=== PATIENT | female | born 1960 | race Caucasian/White ===

== ENCOUNTER 2024-01-06 13:12 | Outpatient (OUT) | payer MEDICARE, SELFPAY ==
[2024-01-06 14:18] LABS: Basophils Absolute Auto 0.1 10^3/uL (0.0-0.1); Eosinophils Absolute Auto 0.1 10^3/uL (0.0-0.7); Eosinophils Percent Auto 0.9 % (0.9-7.0); Hematocrit 42.3 % (36.0-48.0); Hemoglobin 13.8 g/dL (12.0-16.0); Immature Granulocytes Abs Auto 0.02 10^3/uL (0.00-0.03); Immature Granulocytes Pct Auto 0.3 % (0.0-0.5); Lymphocytes Absolute Auto 2.3 10^3/uL (1.2-3.8); Mean Corpuscular HGB Conc 32.6 g/dL (29.9-35.2); Mean Corpuscular Hemoglobin 30.7 pg (26.7-34.0); Mean Corpuscular Volume 94.2 fL (81.0-99.0); Mean Platelet Volume 10.4 fL (9.5-13.5); Monocytes Absolute Auto 0.6 10^3/uL (0.3-0.8); Monocytes Percent Auto 7.6 % (1.7-12.0); Neutrophils Absolute Auto 4.9 10^3/uL (1.4-6.5); Neutrophils Percent Auto 61.2 % (43.0-75.0); Platelet Count 235 10^3/uL (150-450); Red Blood Count 4.49 10^6/uL (4.20-5.40); Red Cell Distribution Width 14.4 % (11.0-15.0)
[2024-01-06 14:45] LABS: Estimated Average Glucose 131 mg/dL; Glycohemoglobin A1C 6.2 % (4.5-6.2)
[2024-01-06 14:51] LABS: Alanine Aminotransferase 41 U/L (14-59); Albumin Globulin Ratio 1.1; Albumin Level 3.8 g/dL (3.4-5.0); Alkaline Phosphatase 124 U/L (46-116); Anion Gap 14.1; Aspartate Amino Transferase 17 U/L (15-37); BUN Creatinine Ratio 13.1; Bilirubin Total 0.4 mg/dL (0.2-1.0); Calcium 9.4 mg/dL (8.5-10.1); Carbon Dioxide 26.7 mmol/L (21.0-32.0); Chloride 100 mmol/L (98-107); Chol HDL Ratio 3.9; Cholesterol 240 mg/dL (<=200); Estimated GFR (African America >60 (>=60); Estimated GFR (Non-African Ame >60 (>=60); Free T3 1.98 pg/mL (2.18-3.98); Globulin 3.5 g/dL; Glucose 92 mg/dL (74-106); HDL Cholesterol 62 mg/dL (40-60); Potassium 3.8 mmol/L (3.5-5.1); Sodium 137 mmol/L (136-145); Thyroid Stimulating Hormone 2.784 uIU/mL (0.358-3.740); Total Protein 7.3 g/dL (6.4-8.2); Triglycerides 171 mg/dL (<=150); VLDL CHOLESTEROL 34.2 mg/dL
[2024-01-06 16:51] LABS: Bilirubin Urine NEGATIVE (NEGATIVE); Blood Urine NEGATIVE (NEGATIVE); Clarity Urine CLEAR (CLEAR); Color Urine LT. YELLOW (YELLOW); Glucose Urine UA NEGATIVE (NEGATIVE); Ketones Urine NEGATIVE (NEGATIVE); Leukocyte Esterase Urine NEGATIVE (NEGATIVE); Nitrite Urine NEGATIVE (NEGATIVE); Protein Urine NEGATIVE (NEG/TRACE); Specific Gravity Urine <=1.005 (1.005-1.025); Urobilinogen Urine 0.2 EU/dL (0.2-1.0)
[2024-01-06 17:08] LABS: Bacteria Urine TRACE #/HPF (NONE SEEN); Mucus Urine NONE SEEN (NONE SEEN); RBC Urine NONE SEEN #/HPF (0-2); Squamous Epithelial Cell Urine FEW #/LPF (NONE/RARE); WBC Urine NONE SEEN #/HPF (NONE SEEN)
[2024-01-06 17:09] LABS: Cast Seen? NONE SEEN #/LPF (NONE SEEN); Crystals Seen? None Seen #/HPF (None Seen)
[2024-01-07 12:12] LABS: Insulin 21.1 uIU/mL (2.6-24.9)
== END 2024-01-06 13:13 | disposition home or self-care (01) ==
LOC: LAB 13:19
PROVIDERS: PCP Nurse Practitioner Family; Visit Provider Nurse Practitioner Family
DX: R35.0 Frequency of micturition (principal); R53.83 Other fatigue
CPT/HCPCS: 36415; 80053; 80061; 81001; 82306; 83036; 83525; 83540; 84436; 84443; 84481; 85025; 87086

== ENCOUNTER 2024-10-21 12:50 | Outpatient (OUT) | payer MEDICARE, MEDICAID, SELFPAY | END 2024-10-21 12:51 | disposition home or self-care (01) | LOC: US 12:55 | PROVIDERS: PCP Nurse Practitioner Family; Visit Provider Nurse Practitioner Family | DX: R60.0 Localized edema (principal); R60.9 Edema, unspecified | CPT/HCPCS: 93970 ==

== ENCOUNTER 2024-11-09 12:47 | Outpatient (OUT) | payer MEDICARE, MEDICAID, SELFPAY ==
--- NOTE | 2024-11-09 13:00 | CA_ITS ---
Patient Name: AISHWARYA HARTMAN MR#: [id number] : 1960 Exam Date: 11/09/2024 Ordering Doctor: KIRSTIE SARAVIA CNP ECHOCARDIOGRAM REPORT PROCEDURE: CA ECHO DOPPLER COMPLETE INDICATIONS: Shortness of breath, smoker, COPD COMPARISON: None. DESCRIPTION: COMPLETE ECHOCARDIOGRAM Real-time transthoracic echocardiography with 2D, M-mode, spectral and color flow Doppler performed. QUALITY: Technically difficult due to patients condition. LEFT VENTRICLE: Normal chamber size. Borderline left ventricular hypertrophy. Normal systolic function. LV EF: Normal left ventricular ejection fraction, (55%). DIASTOLIC: Diastolic function is indeterminate. ATRIAL SEPTUM: Visually appears intact. LEFT ATRIUM: Normal chamber size. RIGHT ATRIUM: Normal chamber size. RIGHT VENTRICLE: Normal chamber size. Normal right ventricular systolic function. TRICUSPID VALVE: Normal mobility and thickness. No stenosis with no regurgitation. Unable to assess right-sided pressures due to lack of measurable tricuspid regurgitation. MITRAL VALVE: Normal mobility and thickness. No evidence of mitral valve stenosis. Mild mitral annular calcification. No mitral regurgitation. AORTIC VALVE: Normal trileaflet appearance. No visible sclerosis. Normal leaflet mobility. No evidence of aortic valve stenosis. No aortic regurgitation. AORTIC ROOT: Normal diameter and appearance, measuring 3.0 cm. PULMONIC VALVE: Normal thickness and mobility. No stenosis. No regurgitation. PERICARDIUM: No evidence of pericardial effusion. IVC: IVC is dilated (2.3 cm), does not collapse. PLEURA: CONCLUSION: 1. Normal left ventricular size and systolic function. LVEF is estimated at 55%. 2. Normal right ventricular size and systolic function. 3. No significant valvular dysfunction. 4. Unable to assess right-sided pressures due to lack of measurable tricuspid regurgitation. 5. No pericardial effusion. Adult Echocardiography Procedure Report Left Ventricle LVEDD (3.7 - 5.6 cm): 4.65 cm LVESD (2.2 - 4.0 cm): 2.09 cm LVIVS thickness (0.6 - 1.2 cm): 0.90 cm LVPW thickness (0.5 - 1.0 cm): 1.09 cm e': 0.07 m/s E - e': 12.66 LVOT Max Gradient: 2.04 mm[Hg] LVOT Area (cm2): 0.71 m/s Peak Velocity (LVOT): 0.71 m/s Mean Velocity (LVOT): 0.48 m/s LVOT Diameter 2.14 cm Left Atrium Left Atrium Systolic Dimension: 4.11 cm Mitral Valve MV E to A Ratio: 0.85 Mitral Valve A-Wave Peak Velocity: 1.04 m/s Mitral Valve E-Wave Peak Velocity: 0.89 m/s Right Ventricle Aorta AO Root Diam: 2.98 cm Aortic Valve AoV Area (Peak Lacho): 2.21 cm2, 2.21 cm2 AoV Area (VTI): 2.74 cm2, 2.74 cm2 Peak Velocity(Antegrade Flow): 1.16 m/s Peak Gradient(Antegrade Flow): 5.42 mm[Hg] Mean Velocity(Antegrade Flow): 0.76 m/s Mean Gradient(Antegrade Flow): 2.77 mm[Hg] Velocity Time Integral: 20.41 cm Tricuspid Valve Pulmonic Valve Mean Gradient: 1.57 mm[Hg] Mean Velocity: 0.58 m/s Peak Velocity: 0.92 m/s, 0.93 m/s Peak Gradient: 3.46 mm[Hg], 3.39 mm[Hg] Right Atrium Dictated by: Toby Patel M.D. on 11/09/2024 at 19:12 Approved by: Toby Patel M.D. on 11/09/2024 at 19:15
[2024-11-09 15:09] LABS: Estimated Average Glucose 128 mg/dL; Glycohemoglobin A1C 6.1 % (4.5-6.2)
[2024-11-09 15:22] LABS: Alanine Aminotransferase 30 U/L (14-59); Albumin Globulin Ratio 1.1; Albumin Level 3.6 g/dL (3.4-5.0); Alkaline Phosphatase 121 U/L (46-116); Aspartate Amino Transferase 11 U/L (15-37); BUN Creatinine Ratio 14.7; Bilirubin Total 0.3 mg/dL (0.2-1.0); C Reactive Protein <0.50 mg/dL (<=0.50); Calcium 9.3 mg/dL (8.5-10.1); Carbon Dioxide 29.9 mmol/L (21.0-32.0); Chloride 99 mmol/L (98-107); Estimated GFR (African America >60 (>=60 mL/min/1.73m^2); Estimated GFR (Non-African Ame 55 (>=60 mL/min/1.73m^2); Free T3 1.34 pg/mL (2.18-3.98); Globulin 3.4 g/dL; Glucose 141 mg/dL (74-106); Magnesium 1.8 mg/dL (1.8-2.4); Potassium 3.9 mmol/L (3.5-5.1); Sodium 137 mmol/L (136-145)
[2024-11-10 03:07] LABS: Vitamin B12 617 pg/mL (232-1245)
== END 2024-11-09 12:48 | disposition home or self-care (01) ==
PROVIDERS: PCP Nurse Practitioner Family; Visit Provider Nurse Practitioner Family
DX: R06.02 Shortness of breath (principal); E11.9 Type 2 diabetes mellitus without complications; R53.83 Other fatigue; E55.9 Vitamin D deficiency, unspecified; I10 Essential (primary) hypertension; M25.59 Pain in other specified joint
CPT/HCPCS: 36415; 80053; 82306; 82525; 82607; 82746; 83036; 83540; 83735; 84207; 84252; 84436; 84443; 84481; 84591; 84597; 86140; 93306

== ENCOUNTER 2024-11-19 01:02 | Emergency (ER) | payer MEDICARE, MEDICAID, SELFPAY ==
--- OUTSIDE RECORDS SUMMARY | 2024-11-19 01:15 | XMS_ITS ---
Author Name Auto Generated Organization OHIP Support Name Relationship Address Phone Anupam Womack Next of Kin Unknown [phone] [place], [place] Next of Kin Unknown + ANUPAM WOMACK Next of Kin Unknown [phone] NONE Next of Kin Unknown Unavailable ANUPAM WOMACK Next of Kin Unknown [phone] NONE Next of Kin Unknown Unavailable ANUPAM WOMACK Next of Kin Unknown [phone] NONE Next of Kin Unknown Unavailable ANUPAM WOMACK Next of Kin Unknown [phone] NONE Next of Kin Unknown Unavailable ANUPAM WOMACK Next of Kin Unknown [phone] NONE Next of Kin Unknown Unavailable ANUPAM WOMACK Next of Kin Unknown [phone] [place], [place] Next of Kin [address] [place] [address] + ANUPAM WOMACK Next of Kin Unknown [phone] [place], [place] Next of Kin [address] [facility] [place]NOTE [facility] [place] [address] + ANUPAM WOMACK Next of Kin Unknown [phone] NONE Next of Kin Unknown Unavailable Anupam Womack Next of Kin Unknown [phone] [place], [place] Next of Kin Unknown + Shanta Anupam Next of Kin Unknown [phone] [place], [place] Next of Kin Unknown + SHANTA ANUPAM Next of Kin Unknown [phone] [place], [place] Next of Kin [address] [place] [address] + Anupam Womack Next of Kin Unknown [phone] [place] Next of Kin Unknown + ANUPAM WOMACK Next of Kin Unknown [phone] [place] Next of Kin [address] [facility] [place] [address] + ANUPAM WOMACK Next of Kin Unknown [phone] [place] VAL[place] Next of Kin [address] [facility] [place] [address] + Care Team Providers Care Kiln Packer Name Role Phone NOMAN LAWRENCE Attending Unavailable RANI, SISI S Primary Care Unavailable YURI WEST Attending Unavailable MONICA BANSAL Referring Unavailable DAKERRIE COLON Attending Unavailable MONICA BANSAL Referring Unavailable DAISAIAH, KERRIE Attending Unavailable MONICA BANSAL Referring Unavailable ERIKA GODOY Attending Unavailable ERIKA GODOY Referring Unavailable TRABOULSSI, MOURJUNIORF Referring Unavailable RANI, SISI S Primary Care Unavailable TRABOULSSI, MOURHAF Referring Unavailable RANI, SISI S Primary Care Unavailable TRABOULSSI, MOURHAF Referring Unavailable RANI, SISI S Primary Care Unavailable TRABOULSSI, MOURHAF Referring Unavailable RANI, SISI S Primary Care Unavailable TRABOULSSI, MOURHAF Referring Unavailable RANI, SISI S Primary Care Unavailable Osvaldo Roberts II Admitting Unavailabl e Armando ORTEGA, Osvaldo Alicia Attending Unavailabl e Rani, Sisi Isabella Primary Care Unavailable Armando ORTEGA, Osvaldo Alicia Admitting Unavailabl e [place] II, Osvaldo Alicia Attending Unavailabl e Rani, Sisi Isabella Primary Care Unavailable Jesu Velazquez Admitting Unavailab le Jesu Velazquez Attending Unavailab le Rani, Sisi Isabella Primary Care Unavailable Bullimore, Tabitha E Admitting Unavailable Bullimore, Tabitha E Attending Unavailable Rani, Sisi Isabella Primary Care Unavailable PROBLEMS DATE TYPE CONDITION / CODE ATTENDING STATUS [facility] 04/02/2024 Admitting Diagnosis Nicotine dependence, unspecified, uncomplicated / F17.200(ICD-10) [facility] 04/02/2024 Admitting Diagnosis Body mass index (BMI) 45.0-49.9, adult (Multi) / Z68.42(ICD-10) [facility] 04/02/2024 Admitting Diagnosis Palpitations / R00.2(ICD-10) [facility] 04/02/2024 Admitting Diagnosis Type 2 diabetes mellitus without complications (Multi) / E11.9(ICD-10) [facility] 04/02/2024 Admitting Diagnosis Chronic obstructive pulmonary disease, unspecified ([facility]) / J44.9(ICD-10) [facility] 04/02/2024 Admitting Diagnosis Sleep apnea, unspecified / G47.30(ICD-10) [facility] 04/02/2024 Admitting Diagnosis Hyperlipidemia, unspecified / E78.5(ICD-10) [facility] 04/02/2024 Admitting Diagnosis Essential (primary) hypertension / I10(ICD-10) [facility] 04/02/2024 Admitting Diagnosis Chest pain, unspecified / R07.9(ICD-10) [facility] 03/24/2024 Unknown Low back pain, unspecified / M54.50(ICD-10) Paula Ryaner E [facility] 01/09/2024 Unknown Unilateral prima ry osteoarthritis, left knee / M17.12(ICD-10) Osvaldo Roberts II [facility] 01/02/2024 Unknown Presence of righ t artificial knee joint / Z96.651(ICD-10) Osvaldo Roberts II [facility] PROCEDURES No Procedure Records Found RESULTS NUCLEAR STRESS TEST Observed: 05/25/2024 11:18 AM Status: F Source: [facility] REPOSITORY Interpreted By: Noman Lawrence, and Josephine Zarate STUDY: MYOCARDIAL PERFUSION STRESS TEST WITH LEXISCAN Performing facility: [facility], [address], [address], [place] [address] [facility] Provider: Noman Lawrence MD PCP: Dr. Charley Schafer [facility] Supervising provider: Noman Lawrence MD INDICATION: Chest Pain; HISTORY: Gender: F; Age: 64 y/o ; Height: HT 147.3 cm cm; Weight: WT 103.874 kg kg. High Cholesterol; Diabetes; HTN; Palpitations; Chest Pain; SOB; COPD; Currently smoking. COMPARISON: Previous nuclear testing completed at [place]. ACCESSION NUMBER(S): [id number] ORDERING CLINICIAN: NOMAN LAWRENCE TECHNIQUE: TWO DAY protocol. Stress injection: Date:05-25-24, 35.2 mCi of Myoview IV 20 seconds after rapid injection of Lexiscan. Rest injection: Date: 05-26-24, 35.3 mCi of Myoview IV at rest. The patient had a rapid injection of 0.4 mg of Lexiscan IV over 10 seconds. Imaging was performed by gated tomographic technique. Reason for Lexiscan: uses walker/cane STRESS TEST DATA: Resting heart rate was 77 BPM. Resting blood pressure was 118/76 mmHg. Peak blood pressure was 108/74 mmHg. Peak heart rate was 88 BPM. TEST TERMINATED DUE TO: Protocol completed FINDINGS: STRESS TEST RESULTS: Resting electrocardiogram revealed normal sinus with nonspecific ST-T changes. There were no significant ischemic ECG changes or dysrhythmias. The patient did not have chest pains/symptoms during procedure. There was a normal recovery phase. IMAGING RESULTS: Image quality was good. Rest and stress tomographic images were reviewed and revealed normal perfusion without evidence of ischemia, myocardial infarction, or left ventricular dilatation with stress. Overall left ventricular systolic function appeared to be normal without regional wall motion abnormalities. Ejection fraction was 73%. TID is 0.96 and is normal. There were evidence of breast attenuation artifact. IMPRESSION: Normal Lexiscan Myoview cardiac perfusion stress test. No evidence of ischemia or myocardial infarction by perfusion imaging. Normal left ventricular systolic function, ejection fraction 73%. No change when compared to previous study. Signed by: Noman Lawrence 05/26/2024 5:32 PM Dictation workstation: [id number] XR KNEE LT 3V - NOT FOR ER USE Observed: 01/09/2024 4:13 PM Status: COMPLETED Source: [facility] REPOSITORY [facility] [address] [place] [address] XRay Report Signed Patient: Milo Womack MR#: [id number] 2 : 1960 Acct:[id number] Age/Sex: 63 / F ADM Date: 01/09/24 Loc: [facility] Room: Type: REG CLI Attending Dr: Osvaldo Roberts II, MD Copies to: Osvaldo Roberts MD Ordering Provider: Osvaldo Roberts MD Date of Service: 01/09/24 XR/XR knee LT 3V - NOT FOR ER USE: M17.12 - Unilateral primary osteoarthritis, left knee LEFT KNEE - 3 views CLINICAL HISTORY: Chronic left knee pain. COMPARISON: None FINDINGS: Severe degenerative changes of the left knee with medial weightbearing joint space narrowing. Small joint effusion. Calcified loose bodies. No acute bony process. XR/XR knee LT 3V - NOT FOR ER USE IMPRESSION: SEVERE DEGENERATIVE CHANGES OF THE LEFT KNEE WITHOUT ACUTE BONY PROCESS. Impression dictated by: Lorenzo Kendrick Jr., D.O.01/09/2024 4:14 PM Dictation Location: [place] [address] Transcribed By: [facility] 01/09/24 1614 Dictated By: Lorenzo Kendrick Jr, DO 01/09/24 1613 Signed By: <Electronically signed by Lorenzo Kendrick Jr, DO in OV> 01/09/24 1614 XR PELVIS 1-2V Observed: 01/02/2024 4:36 PM Status: COMPLETED Source: [facility] REPOSITORY [facility] [place] [address] XRay Report Signed Patient: Milo Womack MR#: [id number] 2 : 1960 Acct:[id number] Age/Sex: 63 / F ADM Date: 01/02/24 Loc: [facility] Room: Type: REG CLI Attending Dr: Osvaldo Roberts II, MD Copies to: Osvaldo Roberts MD Ordering Provider: Osvaldo Roberts MD Date of Service: 01/02/24 XR/XR knee RT 3V - NOT FOR ER USE: Z96.651 - Presence of right artificial knee joint ([id number]) XR/XR pelvis 1-2V: Z96.651 - Presence of right artificial knee joint 3 views right knee knee plain film COMPARISON: 04/10/2022 HISTORY: Chronic right knee pain. Predominantly weightbearing ACUTE FINDINGS: No acute findings DEGENERATIVE CHANGE: Left patellofemoral degenerative change SOFT TISSUE FINDINGS: Unremarkable JOINT EFFUSION: None POSTOP CHANGES: Uncomplicated right knee arthroplasty BONE MINERALIZATION: Adequate XR/XR knee RT 3V - NOT FOR ER USE IMPRESSION: Uncomplicated right knee arthroplasty. Left patellofemoral degenerative change. Exit Field Single view pelvis Mild to moderate bilateral hip degeneration with mild joint space tiny marginal spurring. Preserved articular surfaces. No AVN. Bilateral SI joint degeneration. Moderate lower lumbar degenerative changes. IMPRESSION: Degenerative change. Impression dictated by: Salvatore Lipscomb M.D.01/02/2024 4:38 PM Dictation Location: [place] [address] Transcribed By: [facility] 01/02/24 1638 Dictated By: Salvatore Lipscomb DO 01/02/24 1636 Signed By: <Electronically signed by Salvatore Lipscomb DO in OV> 01/02/24 1638 ALLERGIES DATE TYPE / CODE NAME / CODE REACTION SEVERITY SOURCE 06/15/2024 Drug Allergy/51398 8002(SNOMED CT) atenolol/J572308763 (RXNORM) acid reflux Unknown [facility] 06/15/2024 Drug Allergy/71651 8002(SNOMED CT) gabapentin/S3897958 15(RXNORM) Confusion Unknown [facility] 06/15/2024 Drug Allergy/72123 8002(SNOMED CT) pregabalin/P0765319 83(RXNORM) Confusion [facility] 06/15/2024 Drug Allergy/21265 8002(SNOMED CT) doxycycline/K364876 748(RXNORM) Palpitations Unknown [facility] 06/15/2024 Drug Allergy/80661 8002(SNOMED CT) dapagliflozin/Z5858 65306(RXNORM) Confusion Unknown [facility] 04/02/2024 DRUG INGREDI/71579 1003(SNOMED CT) GABAPENTIN Confusion [facility] 04/02/2024 DRUG INGREDI/68046 1003(SNOMED CT) LITHIUM Hallucinations [facility] 04/02/2024 DRUG INGREDI/13721 1003(SNOMED CT) PREGABALIN Confusion [facility] 04/02/2024 DRUG INGREDI/34527 1003(SNOMED CT) DOXYCYCLINE Palpitations [facility] ENCOUNTERS ADMIT/DISCHARGE ACCOUNT NUMBER ADMITTING ENCOUNTER CLASS LOCATION SOURCE 11/10/2024 [id number] Jesu Velazquez [facility]U [facility] 05/26/2024/05/26/20 24 [id number] Ambulatory Building:[address] 05/26/2024/05/26/20 24 [id number] Ambulatory Building:[address] 05/25/2024/05/25/20 24 [id number] Ambulatory Building:[address] 05/25/2024/05/25/20 24 [id number] Ambulatory Building:[address] 05/25/2024/05/25/20 24 [id number] Ambulatory Building:[address] 04/06/2024/04/06/20 24 [id number] Ambulatory Building:[facility] EPIC 04/06/2024/04/06/20 24 [id number] Ambulatory Building:[facility] EPIC 04/02/2024/04/02/20 24 [id number] Ambulatory Building:[facility] [id number] [facility] 03/24/2024/03/24/20 24 [id number] Tabitha Ryan Emergency [facility]TR[facility]: [facility] 01/09/2024/01/09/20 24 [id number] Osvaldo Roberts II [facility]GERHARD [facility] 01/03/2024/01/03/20 24 [id number] Ambulatory Building:NOM S SWS PT [facility] EPIC 01/02/2024/01/02/20 24 [id number] [facility]SOXD [facility] 12/25/2023/12/25/19 24 [id number] Ambulatory Building:NOM S SWS PT [facility] EPIC 12/23/2023/12/23/19 24 [id number] Ambulatory Building:NOM S SWS PT [facility] EPIC PAYERS ENCOUNTER GUARANTOR PAYER SUBSCRIBER SOURCE 11/10/2024 Milo Foster [id number] [address]Ffw: (HP) Primary Insurance:Self PayPolicy Number: Effective Date:2022-12-10 [facility] MILO MANUSDOB: [address] [address]Lha: (HP) Primary Insurance:MEDICAREP olicy Number: [id number] e Date:1987-01-18 MILO MANUSDOB: [id number] [address] [address]Pyj: (HP) [facility] 05/26/2024 Secondary Insurance:[employer] HEALTH PLANSPolicy Number: [id number] Date:2023-08-19 MILO MANUSDOB: [id number] [address] [address]Uwu: (HP) [facility] 05/26/2024 Tertiary Insurance:MEDICAIDP olicy Number: [id number] ve Date:2023-12-18 MILO MANUSDOB: [id number] [address] [address]Mkn: (HP) [facility] 05/26/2024 MILO MANUSDOB: [address], [place] [address]Wjx: () Primary Insurance:MEDICAREP olicy Number: [id number] e Date:1987-01-18 MILO MANUSDOB: [id number] [address], [place] [address]Xbm: () [facility] 05/26/2024 Secondary Insurance:[employer] HEALTH PLANSPolicy Number: [id number] Date:2023-08-19 MILO MANUSDOB: [id number] [address], [place] [address]Zup: () [facility] 05/26/2024 Tertiary Insurance:MEDICAIDP olicy Number: [id number] ve Date:2023-12-18 MILO MANUSDOB: [id number] [address], [place] [address]Xsd: (HP) [facility] 05/25/2024 MILO MANUSDOB: [address], [place] [address]Joc: () Primary Insurance:MEDICAREP olicy Number: [id number] e Date:1987-01-18 MILO MANUSDOB: [id number] [address], [place] [address]Yul: () [facility] 05/25/2024 Secondary Insurance:MEDICAIDP olicy Number: [id number] ve Date:2023-12-18 MILO MANUSDOB: [id number] [address], [place] [address]Jye: () [facility] 05/25/2024 MILO MANUSDOB: [address], [place] [address]Wzc: (HP) Primary Insurance:MEDICAREP olicy Number: [id number] e Date:1987-01-18 MILO MANUSDOB: [id number] [address], [place] [address]Bqi: (HP) [facility] 05/25/2024 Secondary Insurance:MEDICAIDP olicy Number: [id number] ve Date:2023-12-18 MILO MANUSDOB: [id number] [address], [place] [address]Qeq: (HP) [facility] 05/25/2024 MILO MANUSDOB: [address] [place] [address]Akg: (HP) Primary Insurance:MEDICAREP olicy Number: [id number] e Date:1987-01-18 MILO MANUSDOB: [id number] [address], [place] [address]Ssu: (HP) [facility] 05/25/2024 Secondary Insurance:MEDICAIDP olicy Number: [id number] ve Date:2023-12-18 MILO MANUSDOB: [id number] [address], [place] [address]Dhk: (HP) [facility] 04/06/2024 MILO Foster MANUSDOB: [address] [place] [address]Akk: (HP) Primary Insurance:MEDICAREP olicy Number: [id number] e Date:5695-89-37Wzdm Name:Medicare ROBIN L MANUSDOB: [id number] [address] [place] [address] [facility] 04/06/2024 [place] Insurance:MEDICAID [place] Number: [id number] Date:2023-12-18 MILO Foster MANUSDOB: [id number] [address] [place] [address] [facility] 04/06/2024 MILO Foster MANUSDOB: [address] [address]Frg: (HP) Primary Insurance:MEDICAREP olicy Number: [id number] e Date:3827-10-95Cryq Name:Medicare ROBIN L MANUSDOB: [id number] [address] [place] [address] [facility] 04/06/2024 Secondary Insurance:[place] Number: [id number] ve Date:2023-12-18 MILO Foster MANUSDOB: [id number] [address] [place] [address] [facility] 04/02/2024 MILO MANUSDOB: [address], [place] [address]Mio: (HP) Primary Insurance:MEDICAREP olicy Number: [id number] e Date:1987-01-18 MILO MANUSDOB: [id number] [address], [place] [address]Sak: (HP) [facility] 03/24/2024 Milo Foster Atfgy[address] [place] [address]Coy: (HP) Primary Insurance:MedicareP olicy Number: [id number] e Date:2024-03-24 Milo Foster ManusDOB: [id number] [address] [place] [address]Qpe: (HP) [facility] 03/24/2024 Secondary Insurance:MedicaidP olicy Number: [id number] ve Date:2024-03-24 Milo Foster ManusDOB: [id number] [address] [address]Qfh: (HP) [facility] 03/24/2024 Tertiary Insurance:Self PayPolicy Number: Effective Date:2024-03-24 NOT GIVENUNK [facility] 01/09/2024 Milo Womack[address] [address]Etg: (HP) Primary Insurance:MedicareP olicy Number: [id number] e Date:2024-01-09 Milo Foster ManusDOB: [id number] [address] [address]Yqn: (HP) [facility] 01/09/2024 Secondary Insurance:fapPolicy Number: [id number] Date:[id number]% thru 11/27/23[place], [place] [address]RK: [phone] Milo Foster ManusDOB: [id number] [address] [address]Adv: (HP) [facility] 01/09/2024 Tertiary Insurance:Self PayPolicy Number: Effective Date:2024-01-09 [facility] MILO Foster MANUSDOB: [address] [address]Epc: (HP) Primary Insurance:MEDICAREP olicy Number: [id number] e Date:4582-19-41Jhjy Name:Medicare MILO Foster SHANTADOB: [id number] [address] [place] [address] [facility] 01/02/2024 Milo Womack[address] [address]Hjx: (HP) Primary Insurance:MedicareP olicy Number: [id number] e Date:2024-01-02 Milo Foster ManusDOB: [id number] [address] [address]Lfz: (HP) [facility] 01/02/2024 Secondary Insurance:fapPolicy Number: [id number] Date:2024-01-02 - [id number]% thru 11/27/[place] [address]WD: [phone] Milo Foster ManusDOB: [id number] [place] [address]Tel: (HP) [facility] 01/02/2024 Tertiary Insurance:Self PayPolicy Number: Effective Date:2024-01-02 [facility] 12/25/2023 MILO L MANUSDOB: [address] [address]Lua: (HP) Primary Insurance:MEDICAREP olicy Number: [id number] e Date:2549-28-97Afcr Name:Medicare ROBIN L MANUSDOB: [id number] [address] [place] [address] [facility] 12/23/2023 MILO L MANUSDOB: [address] [address]Dfc: (HP) Primary Insurance:MEDICAREP olicy Number: [id number] e Date:2964-91-62Fqgv Name:Medicare ROBIN L MANUSDOB: [id number] [address] [facility] EPIC
[2024-11-19 01:26] VITALS: BP 171/102; PULSE 117; TEMP 36.9; O2SAT 91; BMI 48.3
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
--- NOTE | 2024-11-19 02:19 | PC.NURSE ---
i gave this patient verbal and written discharge orders and this patient voices yes to understanding these. at time of discharge this patient voices no concerns and shows no signs of distress
== END 2024-11-19 02:19 | disposition home or self-care (01) ==
PROVIDERS: Emergency Provider Emergency Medicine; PCP Nurse Practitioner Family
DX: S80.02XA Contusion of left knee, initial encounter (principal); S80.01XA Contusion of right knee, initial encounter; Y08.89XA Assault by other specified means, initial encounter; Z96.651 Presence of right artificial knee joint
CPT/HCPCS: 73562; 99283

== ENCOUNTER 2025-05-17 10:10 | Outpatient (OUT) | payer MEDICARE, MEDICAID, SELFPAY ==
--- OUTSIDE RECORDS SUMMARY | 2025-05-05 12:00 | XMS_ITS | Encounter Summary ---
Author Organization [facility] Address [address] [place] [address] Care Team Providers Care Mat Packer Name Role Phone Sisi Schafer MD Unavailable [phone] Reason for Visit * Rehabilitation - Outpatient (Routine) - Authorized Specialty Diagnoses / Procedures Referred By Gab otero Referred To Contact Physical Therapy Diagnoses Spondylosis without myelopathy or radiculopathy, lumbosacral region Procedures ME PHYSICAL THERAPY EVALUATION LOW COMPLEX 20 MINS ME OFFICE/OUTPATIENT NEW HIGH MDM 60 MINUTES Linda Archer MD [address] [facility] [address] [place] [address] Phone: tel: fax: Leny Chacon PT Referral ID Status Reason Start Date Expiration Date V isits Requested Visits Authorized [id number] Authorized 04/23/2025 08/18/2025 20 30 Encounter Details Date Type Department Care Team (Late st Contact Info) Description 05/05/2025 12:00 PM EDT Treatment [facility] [address] [place] [address] Delroy Felix PTA Spondylosis without myelopathy or radiculopathy, lumbosacral region (Primary Dx); Arthritis of lumbar spine; Sedentary lifestyle Social History Tobacco Use Types Packs/Day Years Used Date Smoking Tobacco: Every Day Cigarettes Passive Smoke Exposure: Past Smokeless Tobacco: Never Alcohol Use Standard Drinks/Week Comments Never 0 (1 standard drink = 0.6 oz pur e alcohol) Comments Unknown Sex and Gender Information Value Date Recorded Sex Assigned at Not on file Legal Sex Female 7:47 PM EDT Gender Identity Not on file Sexual Orientation Not on file documented as of this encounter Progress Notes * Delroy Felxi, TEACHER CIT[employer]EN[employer]IP - 05/05/2025 12:00 PM EDT Images from the original note were not included. Physical Therapy Treatment Visit Patient Name: Milo Womack Today's Date: 05/05/2025 Encounter Diagnoses Name Primary? Spondylosis without myelopathy or radiculopathy, lumbosacral region Yes Arthritis of lumbar spine Sedentary lifestyle Visit number: 4 Timed Code Treatment Minutes: 38 minutes Total Treatment Time: 40 minutes Time In: 1200 Time Out: 1240 History: Pt states she has been having pain in her low back for a while. Was sent by neurologist brianenurosurgeon. Pt states neurosurgeon said she was not candidate for lumbar surgery. Was seen by pain management in the past but states she was not willing to continue with RFA's. Pt is now being sentto therapy. Pt also states she has bad OA in bilateral knees which keeps her from squatting. Stateslately she has also been having issues with sciatic pain in left LE. Precautions: right TKA, falls Subjective: low back pain and left buttock pain. Knee pain is chief complaint. LE fatigue following last session. Amb into clinic with cane. Pt changed chair she sits in and thatseemed to help. Educated to do HEP at least on the days when she does not come into therapy. Pain: 3/10 lower back pain. Objective: PT Evaluation (04/23/2025) LUMBAR SPINE AROM: full flexion without increase pain, no complaints of increase pain at end range extension, full right SB without increase pain, increase pain at end range left SB Strength: right hip 4-/5, quad 4/5, ankle DF 4/5; left hip 3+/5, quad 4-/5 with left knee pain, ankle DF 4/5; core strength is poor Palpation: moderate to severe tenderness left lower lumbar and buttock. Special Test: negative slump testing bilateral Functional: Pt ambulates with use of st cane Neurological: Reflexes: bilateral patellar 2 Myotomes: intact Dermatomes: decrease left L4 Special Test: negative clonus bilateral Treatment: Education: HEP education with demonstration, Educated on Eval Findings and POC Manual Therapy: Passive ROM, Joint mobilization, Soft Tissue Mobilization, Myofascial Release, Muscle Energy Technique, Neural Mobilization, Myofascial Cupping, Dry Needling, IASTM, and Scar mobilization as needed. Therapeutic Exercise: (38 minutes) Pt performed and instructed in flexion based exercises and hip/LE strengthening Strength, Endurance, Flexibility, ROM, HEP, Neural Mobilization, Power, and Core Stability as needed. Therapeutic Activity: Exercises to improve dynamic activities, functional tasks, functional mobility to return to prior activity level as needed. Neuromuscular re-education: Balance Training, Muscle Facilitation, Dynamic Stability, Core Stabilization, and Blood Flow Restriction Training (BFRT) as needed. Modalities: Heat, Ice, Electrical Stimulation, Ultrasound, Cervical Mechanical Traction, Lumbar Mechanical Traction, Iontophoresis, and Fluidotherapy as needed. HP x PRN mins in sitting at end of session. Assessment: Pt is 65 y/o female with complaints of chronic low back and left LE pain. Pt with limited core and LE strength. Pt responds well to flexion based stretches. Poor tolerance to supine exercises due to hip and back pain. Improved tolerance to exercises today,progressed to standing exercises. Barrier to progress is knee and hip pain, and poor tolerance to functional activity. Pt will benefit from further PT. Outcome Measure: Back Index: 40/50 Rehab Diagnosis: low back pain, left LE pain and weakness, difficulty walking, decrease core and LEstrength Short Term Goal: To be met in 2 weeks Goal 1: Pt to be instructed in home exercise program. 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 Goal 2: Pt to have full trunk ROM without complaints of increase pain at end ranges to assist with functional tasks. Goal 3: Pt to report pain no greater than 4/10 with function tasks, ADL's, and work related activities. Goal 4: Pt to score no greater than 20/50 on Back Index indicating improved QOL. Goal 5: Pt to achieve 4/5 strength bilateral hips to assist with functional tasks. Goal 6: Pt to achieve good/fair core strength for improved lumbar stability. Pt will benefit from skilled PT for 2x/week from 04/23/2025 to 07/16/2025 to address the above impairments. I hereby deem this POC medically necessary. Please sign below. Date: Cosigned by Leny Chacon, PT at 05/10/2025 8:40 AM EDT documented in this encounter Plan of Treatment Upcoming Encounters Date Type Department Care Team (Late st Contact Info) Description 05/19/2025 12:30 PM EDT Treatment [facility] [address] [place] [address] Nancy Russell PTA documented as of this encounter Visit Diagnoses Diagnosis Spondylosis without myelopathy or radiculopathy, lumbosacral region- Primary Arthritis of lumbar spine Sedentary lifestyle documented in this encounter Care Teams Mat Packer Relationship Specialty Start Date End Date Sisi Schafer MD [address] [place] [id number] Primary Care Provider Family Medicine 12/24/24 documented as of this encounter
--- OUTSIDE RECORDS SUMMARY | 2025-05-06 08:30 | XMS_ITS ---
Author Name Auto Generated Organization OHIP Support Name Relationship Address Phone ANUPAM WOMACK Next of Kin Unknown [phone] VALDIVIA, LULA Next of Kin [address] [place] [address].[place] [address] + MANUS, ANUPAM Next of Kin Unknown [phone] VALDIVIA, LULA Next of Kin [address] [place] [address].[address] [place] [address] + MANUS, ANUPAM Next of Kin Unknown [phone] VALDIVIA, LULA [facility] [place] [address] + Manus, Anupam Next of Kin Unknown [phone] Valdivia, Lula Next of Kin Unknown + MANUS, ANUPAM Next of Kin Unknown [phone] VALDIVIA, LULA Next of Kin [facility] [place] [place] [address] + Manus, Anupam Next of Kin Unknown [phone] Valdivia, Lula Next of Kin Unknown + MANUS, ANUPAM Next of Kin Unknown [phone] VALDIVIA, LULA Next of Kin [facility] N[address] [place] [address] + MANUS, ANUPAM Next of Kin Unknown [phone] VALDIVIA, LULA Next of Kin [facility] [address] [place] [address] + MANUS, ANUPAM Next of Kin Unknown [phone] VALDIVIA, LULA Next of Kin [address] [place] [address] + ANUPAM WOMACK Next of Kin Unknown [phone] LULA VALDIVIA Next of Kin [address] [place] [address] + ANUPAM WOMACK Next of Kin Unknown [phone] LULA VALDIVIA Next of Kin [address] [place] [address] + ANUPAM WOMACK Next of Kin Unknown [phone] NONE Next of Kin Unknown Unavailable ANUPAM WOMACK Next of Kin Unknown [phone] NONE Next of Kin Unknown Unavailable ANUPAM WOMACK Next of Kin Unknown [phone] NONE Next of Kin Unknown Unavailable ANUPAM WOMACK Next of Kin Unknown [phone] NONE Next of Kin Unknown Unavailable ANUPAM WOMACK Next of Kin Unknown [phone] NONE Next of Kin Unknown Unavailable Care Team Providers Care Linoleum Layer Helper Name Role Phone ERIKA GODOY Attending Unavailable UNALLOCATED, NOMS PROVIDER Referring Unava ilable ERIKA GODOY Referring Unavailable ERIKA GODOY Referring Unavailable ASHLEY MATIAS Attending Unavailable RANI, SISI Referring Unavailable AMERICO HOLLEY Attending Unavailable LEXI LINO Attending Unavailable TUROVSKAYA, YELITZA Referring Unavailable HEAVEN BECK Attending Unavailable TUROVSKAYA, YELITZA Referring Unavailable HEAVEN BECK Attending Unavailable TUROVSKAYA, YELITZA Referring Unavailable BRINKHEAVEN Attending Unavailable TUROVSKAYA, YELITZA Referring Unavailable Turovskaya, Yelitza Admitting Unavailable Rani, Sisi Isabella Primary Care Unavailable Turovskaya, Yelitza Attending Unavailable Jesu Velazquez Attending Unavailab le Jesu Velazquez Admitting Unavailab le Rani, Sisi Isabella Primary Care Unavailable Laurel Cassidy Attending Unavailable TRABOULSSI, MOURHAF Referring Unavailable RANI, SISI S Primary Care Unavailable TRABOULSSI, MOURHAF Referring Unavailable RANI, SISI S Primary Care Unavailable TRABOULSSI, MOURHAF Referring Unavailable RANI, SISI S Primary Care Unavailable TRABOULSSI, MOURHAF Referring Unavailable SISI SARAVIA Primary Care Unavailable MARTINEZNOMAN Referring Unavailable SISI SARAVIA Primary Care Unavailable PROBLEMS DATE TYPE CONDITION / CODE [facility] Unknown Radiculopathy, lumbar region / M54.16(ICD-10) Yelitza Archer Active [facility] 04/02/2024 Admitting Diagnosis Chest pain, unspecified / R07.9(ICD-10) [facility] PROCEDURES No Procedure Records Found RESULTS PROVIDER LETTER Observed: 04/22/2025 1:17 PM Status: F Source: [facility] Provider Letter April 22, 2025 MILO WOMACK [address] [address] : 1960 Dear Milo Womack , We have been trying to reach you with no success. It is important that you return our call regarding your referral upon receiving this letter. Also, at the time of your call, please provide us with your current information. Thank you for your prompt attention to this matter. Sincerely, [facility] [phone] XR LUMBAR SPINE 6V W BENDING Observed: 02/04/2025 1:21 PM Status: COMPLETED Source: [facility] [place] [address] XRay Report Signed Patient: Milo Womack MR#: [id number] 2 : 1960 Acct:[id number] Age/Sex: 65 / F ADM Date: 02/04/25 Loc: XD Room: Type: [facility] Attending Dr: Yelitza Archer APRN Copies to: Yelitza Archer APRN Ordering Provider: Yelitza Archer APRN Date of Service: 02/04/25 XR/XR lumbar spine 6V w bending: M54.16 - Radiculopathy, lumbar region LUMBAR SPINE - 6 views CLINICAL HISTORY: Low back pain for 2 years. Right leg numbness feeling and swelling. COMPARISON: None FINDINGS: Levoscoliosis. Vertebral body heights appear maintained. Scattered endplate and facet joint degenerative changes with moderate disc space narrowing L2-L3 and L5-S1. No pathological motion on flexion or extension views. Restrictive left-sided sidebending. XR/XR lumbar spine 6V w bending IMPRESSION: LEVOSCOLIOSIS WITH DEGENERATIVE CHANGES AND MODERATE DISC SPACE NARROWING L2-L3 AND L5-S1. Impression dictated by: Lorenzo Kendrick Jr., D.O. 02/04/2025 1:22 PM Dictation Location: [facility]-22 Transcribed By: PWS 02/04/25 1322 Dictated By: Lorenzo Kendrick Jr, DO 02/04/25 1321 Signed By: <Electronically signed by Lorenzo Kendrick Jr, in OV> 02/04/25 1322 NUCLEAR STRESS TEST Observed: 05/25/2024 11:18 AM Status: F Source: [facility] Interpreted By: Noman Lawrence and Giannuzzi Michael STUDY: MYOCARDIAL PERFUSION STRESS TEST WITH LEXISCAN Performing facility: [facility], [address] [place] [address], [address] Provider: Noman Lawrence MD PCP: Dr. Charley Saravia [facility] Supervising provider: Noman Lawrence MD INDICATION: Chest Pain; HISTORY: Gender: F; Age: 64 y/o ; Height: HT 147.3 cm cm; Weight: WT 103.874 kg kg. High Cholesterol; Diabetes; HTN; Palpitations; Chest Pain; SOB; COPD; Currently smoking. COMPARISON: Previous nuclear testing completed at [place]. ACCESSION NUMBER(S): [id number] ORDERING CLINICIAN: NOMAN LARWENCE TECHNIQUE: TWO DAY protocol. Stress injection: Date:05-25-24, [...] Noman Lawrence 05/26/2024 5:32 PM Dictation workstation: [id number] ALLERGIES DATE TYPE / CODE NAME / CODE REACTION SEVERITY SOURCE 02/04/2025 Drug Allergy/74547 8002(SNOMED CT) doxycycline/H534222 748(RXNORM) Palpitations Unknown [facility] 02/04/2025 Drug Allergy/83697 8002(SNOMED CT) atenolol/H511124513 (RXNORM) acid reflux Unknown [facility] 02/04/2025 Drug Allergy/79382 8002(SNOMED CT) gabapentin/H8620095 15(RXNORM) Confusion [facility] 02/04/2025 Drug Allergy/92685 8002(SNOMED CT) pregabalin/T7405102 83(RXNORM) Confusion [facility] 02/04/2025 Drug Allergy/44378 8002(SNOMED CT) dapagliflozin/Q9783 35346(RXNORM) Confusion [facility] 04/02/2024 DRUG INGREDI/80339 1003(SNOMED CT) GABAPENTIN Confusion [facility] 04/02/2024 DRUG INGREDI/79326 1003(SNOMED CT) LITHIUM Hallucinations [facility] 04/02/2024 DRUG INGREDI/49745 1003(SNOMED CT) PREGABALIN Confusion [facility] 04/02/2024 DRUG INGREDI/62666 1003(SNOMED CT) DOXYCYCLINE Palpitations [facility] ENCOUNTERS ADMIT/DISCHARGE ACCOUNT NUMBER ADMITTING ENCOUNTER CLASS LOCATION SOURCE 05/06/2025/05/06/20 [id number] [facility] 05/05/2025/05/05/20 [id number] Ambulatory Building:[facility] 04/30/2025/04/30/20 [id number] Ambulatory Building:[facility] 04/26/2025/04/26/20 [id number] Ambulatory Building:[facility] 04/26/2025 [id number] Jesu [facility]azquez [facility] 04/23/2025/04/23/20 [id number] Ambulatory Building:[facility] 04/13/2025 [id number] [facility] 02/04/2025/02/05/20 [id number] Yelitza Archer [facility]OFE [facility] 01/06/2025/01/07/20 25 [id number] Ambulatory Building:FHP OD [facility] 12/30/2024/12/31/19 25 [id number] Ambulatory Building:ST NEURO [facility] 12/23/2024/12/24/19 25 [id number] Ambulatory Building:FBO [facility] 12/23/2024/12/24/19 25 [id number] Ambulatory Building:FBO [facility] 12/23/2024/12/24/19 25 [id number] Ambulatory Building:[facility] 05/26/2024/05/26/20 24 [id number] Ambulatory Building:[address] 05/26/2024/05/26/20 24 [id number] Ambulatory Building:[address] 05/25/2024/05/25/20 24 [id number] Ambulatory Building:[address] 05/25/2024/05/25/20 24 [id number] Ambulatory Building:[address] 05/25/2024/05/25/20 24 [id number] Ambulatory Building:[address] PAYERS ENCOUNTER GUARANTOR PAYER SUBSCRIBER SOURCE 05/06/2025 MILO Foster MANUSDOB: [place] [address]Tel: ~[phone] (HP) (WP) Primary Insurance:MEDICAREP olicy Number: [id number] e Date:2801-42-11FE [address] [place] [address]JR: MILO Foster [facility] 05/06/2025 Secondary Insurance:MedicaidP olicy Number: [id number] ve Date:0714-97-12CN [address], [place] [address]OD: MILO Foster [facility] 05/05/2025 MILO Foster MANUSDOB: [address] [address]Jjb: (HP) Primary Insurance:MEDICAREP olicy Number: [id number] e Date:3727-54-98Offv Name:Medicare MILO Foster MANUSDOB: [id number] [address] [address] [facility] EPIC 05/05/2025 Secondary Insurance[place] Number: [id number] ve Date:2023-12-18 MILO Foster MANUSDOB: [id number] [address] [facility] EPIC 04/30/2025 MILO Foster MANUSDOB: [address] [address]Pte: (HP) Primary Insurance:MEDICAREP olicy Number: [id number] e Date:4090-71-81Jnko Name:Medicare ROBIN L MANUSDOB: [id number] [address] [place] [address] [facility] EPIC 04/30/2025 Secondary Insurance:[place] Number: [id number] ve Date:2023-12-18 MILO Foster MANUSDOB: [id number] [address] [place] [address] [facility] EPIC 04/26/2025 MILO Foster MANUSDOB: [address] [place] [address]Ues: (HP) Primary Insurance:MEDICAREP oscar Number: [id number] e Date:1292-88-55Wbgo Name:Medicare ROBIN L MANUSDOB: [id number] [address] [place] [address] [facility] EPIC 04/26/2025 Secondary Insurance[place] Number: [id number] ve Date:2023-12-18 MILO Foster MANUSDOB: [id number] [address] [place] [address] [facility] EPIC 04/26/2025 Milo Foster Aiysh[address] [place] [address]Beg: (HP) Primary Insurance:Self PayPolicy Number: Effective Date:2022-12-10 [facility] 04/23/2025 MILO Foster MANUSDOB: [address] [place] [address]Ecc: (HP) Primary Insurance:MEDICAREP antwonicy Number: [id number] e Date:6251-63-52Aorx Name:Medicare ROBIN L MANUSDOB: [id number] [address] [place] [address] [facility] EPIC 04/23/2025 Secondary Insurance[place] Number: [id number] Date:2023-12-18 MILO Foster MANUSDOB: [id number] [address] [place] [address] [facility] EPIC 02/04/2025 Milo Womack[address] [address]Bli: (HP) Primary Insurance:MedicareP olicy Number: [id number] e Date:2025-02-04 Milo Foster ManusDOB: [id number] [address] [place] [address]Cwr: (HP) [facility] 02/04/2025 Secondary Insurance:MedicaidP olicy Number: [id number] ve Date:2025-02-04 Milo Foster ManusDOB: [id number] [address] [place] [address]Ruk: (HP) [facility] 02/04/2025 Tertiary Insurance:Self PayPolicy Number: Effective Date:2025-02-04 [facility] 01/06/2025 MILO Foster MANUSDOB: [address] [place] [address]Ecj: (HP) Primary Insurance:MEDICAREP olicy Number: [id number] e Date:6662-15-27Aayd Name:Medicare ROBIN L MANUSDOB: [id number] [address] [place] [address] [facility] EPIC 01/06/2025 Secondary Insurance:[place] Number: [id number] ve Date:2023-12-18 MILO L MANUSDOB: [id number] [address] [place] [address] [facility] EPIC 12/30/2024 MILO Foster MANUSDOB: [address] [address]Wkx: (HP) Primary Insurance:MEDICAREP olicy Number: [id number] e Date:9016-24-55Vomx Name:Medicare ROBIN L MANUSDOB: [id number] [address] [place] [address] [facility] EPIC 12/30/2024 Secondary Insurance:[place] Number: [id number] Date:2023-12-18 MILO Foster MANUSDOB: [id number] [address] [place] [address] [facility] EPIC 12/23/2024 MILO Foster MANUSDOB: [address] [address]Pry: (HP) Primary Insurance:MEDICAREP olicy Number: [id number] e Date:9998-74-45Xrit Name:Medicare ROBIN L MANUSDOB: [id number] [address] [address] [facility] EPIC 12/23/2024 Secondary Insurance[place] Number: [id number] ve Date:2023-12-18 MILO Foster MANUSDOB: [id number] [place] [address] [facility] EPIC 12/23/2024 MILO Foster MANUSDOB: [address] [address]Exk: (HP) Primary Insurance:MEDICAREP olicy Number: [id number] e Date:1133-36-36Zhyg Name:Medicare ROBIN L MANUSDOB: [id number] [address] [address] [facility] EPIC 12/23/2024 Secondary Insurance[place] Number: [id number] ve Date:2023-12-18 MILO Kristin MANUSDOB: [id number] [address] [address] [facility] EPIC 12/23/2024 MILO Foster MANUSDOB: [address] [address]Vsl: (HP) Primary Insurance:MEDICAREP olicy Number: [id number] e Date:2588-11-89Wjgy Name:Medicare MILO Foster MANUSDOB: [id number] [address] [facility] EPIC 12/23/2024 Secondary Insurance[place]: [id number] Date:2023-12-18 MILO Foster MANUSDOB: [id number] [address] [address] [facility] EPIC 05/26/2024 MILO MANUSDOB: [address] [address]Kqz: (HP) Primary Insurance:MEDICAREP olicy Number: [id number] e Date:1987-01-18 MILO MANUSDOB: [id number] [address] [address]Olq: (HP) [facility] 05/26/2024 Secondary Insurance:[employer] HEALTH PLANSPolicy Number: [id number] Date:2023-08-19 MILO MANUSDOB: [id number] [address] [address]Try: (HP) [facility] 05/26/2024 Tertiary Insurance:MEDICAIDP olicy Number: [id number] ve Date:2023-12-18 MILO MANUSDOB: [id number] [address], [place] [address]Fft: () [facility] 05/26/2024 MILO MANUSDOB: [address], [place] [address]Fgu: (HP) Primary Insurance:MEDICAREP olicy Number: [id number] e Date:1987-01-18 MILO MANUSDOB: [id number] [address], [place] [address]Qfc: (HP) [facility] 05/26/2024 Secondary Insurance:[employer] PLANSPolicy Number: [id number] Date:2023-08-19 MILO MANUSDOB: [id number] [address], [place] [address]Guz: () [facility] 05/26/2024 Tertiary Insurance:MEDICAIDP olicy Number: [id number] ve Date:2023-12-18 MILO MANUSDOB: [id number] [address], [place] [address]Qvo: (HP) [facility] 05/25/2024 MILO MANUSDOB: [address], [place] [address]Lmj: () Primary Insurance:MEDICAREP olicy Number: [id number] e Date:1987-01-18 MILO MANUSDOB: [id number] [address], [place] [address]Sqv: () [facility] 05/25/2024 Secondary Insurance:MEDICAIDP olicy Number: [id number] ve Date:2023-12-18 MILO MANUSDOB: [id number] [address], [place] [address]Hti: (HP) [facility] 05/25/2024 MILO MANUSDOB: [address], [place] [address]Pci: (HP) Primary Insurance:MEDICAREP olicy Number: [id number] e Date:1987-01-18 MILO MANUSDOB: [id number] [address], [place] [address]Euh: (HP) [facility] 05/25/2024 Secondary Insurance:MEDICAIDP olicy Number: [id number] ve Date:2023-12-18 MILO MANUSDOB: [id number] [address], [place] [address]Lqy: () [facility] 05/25/2024 MILO MANUSDOB: [address], [place] [address]Scc: () Primary Insurance:MEDICAREP olicy Number: [id number] e Date:1987-01-18 MILO MANUSDOB: [id number] [address], [place] [address]Eke: () [facility] 05/25/2024 Secondary Insurance:MEDICAIDP olicy Number: [id number] ve Date:2023-12-18 MILO MANUSDOB: [id number] [address], [place] [address]Orp: () [facility]
--- OUTSIDE RECORDS SUMMARY | 2025-05-17 10:17 | XMS_ITS | Encounter Summary ---
Author Organization [facility] Address [address] [place] [address] Phone Care Team Providers Care Wide Area Network Systems Administrator Name Role Phone Sisi Schafer Primary Care Provider Encounter Details Date Type Department Care Team (Late st Contact Info) Description 06/24/2022 Orders Only [facility] [address] [place] [place] [address] Conversion, Onbase Social History Tobacco Use Types Packs/Day Years Used Date Smoking Tobacco: Never Assessed Comments Unknown Sex and Gender Information Value Date Recorded Sex Assigned at Not on file Legal Sex Female 10:05 AM EST Gender Identity Not on file Sexual Orientation Not on file documented as of this encounter Plan of Treatment Scheduled Orders Name Type Priority Associated Diagnoses Orde r Schedule OUTSIDE LAB SCAN Lab Ordered: 06/24/2022 documented as of this encounter Visit Diagnoses Not on filedocumented in this encounter Care Teams Wide Area Network Systems Administrator Relationship Specialty Start Date End Date Sisi Schafer APRN-CNP [address] [place] [address] PCP - General 07/10/22 documented as of this encounter
--- OUTSIDE RECORDS SUMMARY | 2025-05-17 10:17 | XMS_ITS | Encounter Summary ---
Author Organization [facility] Address [address] [place] [address] Care Team Providers Care Vat Washer Name Role Phone Sisi Schafer MD Unavailable [phone] Reason for Referral * Consultation (Routine) - Closed Specialty Diagnoses / Procedures Referred By Contac t Referred To Contact Neurosurgery Diagnoses Degeneration of intervertebral disc of lumbar region with discogenic back pain and lower extremity pain Brigitte Quiñonez NP Braun, Dale, MD [address] [place] [address], [address] [place] [address] Phone: tel: fax: Referral ID Status Reason Start Date Expiration Date V isits Requested Visits Authorized [id number] Closed Consult and Treat 01/07/2025 07/06/2025 1 1 Reason for Visit * Reason Onset Date Comments Wants Referral to Neurosurgery 01/07/2025 Encounter Details Date Type Department Care Team (Late st Contact Info) Description 01/07/2025 Telephone ZUNILDA YARI [address] [place] [phone] Tay Chery ARRT Wants Referral to Neurosurgery Social History Tobacco Use Types Packs/Day Years [...] on file documented as of this encounter Miscellaneous Notes * Telephone Encounter - Brigitte Quiñonez NP - 01/07/2025 1:07 PM EDT Referral placed. The patient should hopefully received a phone call from Dr. Burgos's office within 1 week of today to schedule an appointment. * Telephone Encounter - LENARD Stewart - 01/07/2025 12:44 PM EDT Patient left message stating that she would like the referral sent to Neurosurgery, preferably Dr. Burgos. (I did offer a referral for a neurosurgical opinion today given the symptoms, progression and previous imaging findings and failure of pain management. The patient has refused this understanding thatfurther weakness could be debilitating and permanent if surgical intervention is not explored. She again has refused and states she only wants to do physical therapy to start and may consider surgical referral thereafter. .... Per Dr. Young on 12/30/24) documented in this encounter Plan of Treatment Upcoming Encounters Date Type Department Care Team (Late st Contact Info) Description 05/19/2025 12:30 PM EDT Treatment [facility] [address] [place] [address] Nacny Russell PTA Scheduled Referrals Name Type Priority Associated Diagnoses Orde r Schedule Ambulatory referral to Neurosurgery Outpatient Referral Routine Degeneration of intervertebral disc of lumbar region with discogenic back pain and lower extremity pain Expected: 01/07/2025 (Approximate), Expires: 07/10/2025 documented as of this encounter Visit Diagnoses Diagnosis Degeneration of intervertebral disc of lumbar region with discogenic back pain and lower extremity pain- Primary documented in this encounter Care Teams Vat Washer Relationship Specialty Start Date End Date Sisi Schafer MD [address] [place] [address] Primary Care Provider Family Medicine 12/24/24 documented as of this encounter
--- OUTSIDE RECORDS SUMMARY | 2025-05-17 10:17 | XMS_ITS | Encounter Summary ---
Author Organization [facility] Address [address] [place] [address] Care Team Providers Care Extractor Operator Helper Name Role Phone Sisi Schafer MD Unavailable [phone] Sisi Schafer MD Unavailable Sisi Schafer MD Unavailable [phone] Encounter Details Date Type Department Care Team (Late st Contact Info) Description 12/21/2024 Orders Only [facility] [address] [place] [address] Unallocated, Noms Provider, [address] [place] [address] Social History Tobacco Use Types Packs/Day Years [...] as of this encounter Plan of Treatment Upcoming Encounters Date Type Department Care Team (Late st Contact Info) Description 05/19/2025 12:30 PM EDT Treatment [facility] [address] [place] [id number] Nancy Russell PTA documented as of this encounter Procedures Procedure Name Priority Date/Time Associated Diagnosis Comments XR KNEE 3 VIEWS BILATERAL Routine 11/19/2024 9:25 AM EDT documented in this encounter Results * XR knee 3 views bilateral (11/19/2024 9:25 AM EDT) Anatomical Region Laterality Modality Lower Extremities, Knee Bilateral Radiogra phic Imaging us [facility] Provider Unallocated MD ZAMBRANO XR PROCEDURES F inal Result documented in this encounter Visit Diagnoses Not on filedocumented in this encounter Care Teams Extractor Operator Helper Relationship Specialty Start Date End Date Sisi Schafer MD [address] [place] [address] Referring Physician Family Medicine 02/07/23 12/23/24 Sisi Schafer MD [address] [place] [address] Referring Physician Family Medicine 12/24/24 12/24/24 Sisi Schafer MD [address] [place] [address] Primary Care Provider Family Medicine 12/24/24 documented as of this encounter
--- OUTSIDE RECORDS SUMMARY | 2025-05-17 10:17 | XMS_ITS | Clinical Summary ---
Author Organization [facility] Address [address] [place] [address] Care Team Providers Care Civil Clerk Name Role Phone Sisi Schafer MD Unavailable [phone] Allergies Active Allergy Reactions Criticality Noted Date Comments Amoxicillin Other Low 01/18/2023 Other Reaction(s): yeast infection Lisinopril Rash Low 01/18/2023 Talc Rash Low 01/18/2023 Medications ziprasidone (Geodon) 20 MG capsule Take 20 mg by mouth Active Geodon 80 MG capsule Take 80 mg by mouth every 12 (twelve) hours Active triamcinolone (Kenalog) 0.1 % cream Apply 1 application topically in the morning and 1 application before bedtime. Active traZODone (Desyrel) 50 MG tablet Take 50 mg by mouth 1 (one) time each day at the same time 01/08/20 23 Active irbesartan (Avapro) 150 MG tablet Take 150 mg by mouth in the morning. Active levothyroxine (Synthroid, Levoxyl) 150 MCG tablet Take 150 mcg by mouth in the morning. Take before meals. Active nortriptyline (Pamelor) 50 MG capsule Take 50 mg by mouth at bedtime Active Trelegy Ellipta 100-62.5-25 MCG/ACT aerosol powder Inhale 1 puff in the morning. 02/08/20 24 Active MAGNESIUM PO Take 500 mg by mouth Active b complex vitamins capsule Take 1 capsule by mouth Daily Active allopurinol (Zyloprim) 300 MG tablet Take by mouth Active hydroCHLOROthiazid e (HYDRODiuril) 25 MG tablet Take 25 mg by mouth Daily Active liothyronine (Cytomel) 5 MCG tablet Take by mouth Daily Active montelukast (Singulair) 10 MG tablet Take by mouth Active furosemide (Lasix) 20 MG tablet Take by mouth Act lubna famotidine (Pepcid) 10 MG tablet Take by mouth Active albuterol HFA 90 mcg/act inhaler Inhale 2 puffs every 4 (four) hours if needed for wheezing Active phytonadione (Vitamin K) 100 MCG tablet Take by mouth Activ e potassium chloride ER (Micro-K) 10 MEQ ER capsule Take 10 mEq by mouth in the morning and 10 mEq before bedtime. Do not crush or chew. Active diclofenac (Voltaren) 75 MG EC tablet Take 75 mg by mouth in the morning and 75 mg before bedtime. Do not crush, chew, or split. Active predniSONE (Deltasone) 10 MG tabletIndications: Primary osteoarthritis of left ankle Take twice daily for 5 days, then take once daily for 5 days. 15 tablet 01/07/20 25 Active Active Problems Problem Noted Date Diagnosed Date Arthritis of lumbar spine 12/23/2023 Sedentary lifestyle 12/23/2023 Cervical radiculopathy 09/30/2023 Encounters Date Type Department Care Team Description 05/05/2025 12:00 PM EDT Treatment [facility] [facility] [address] [facility] [address] [place] [address] Delroy Felix PTA Spondylosis without myelopathy or radiculopathy, lumbosacral region (Primary Dx); Arthritis of lumbar spine; Sedentary lifestyle 05/05/2025 [employer] flowsheet [facility] [address] [facility] [address] [place] [address] Delroy Felix PTA 05/05/2025 Travel 04/30/2025 2:00 PM EDT Treatment [facility] [address] [facility] [address] [place] [address] Delroy Felix PTA Spondylosis without myelopathy or radiculopathy, lumbosacral region (Primary Dx); Arthritis of lumbar spine; Sedentary lifestyle 04/30/2025 Bamboo flowsheet [facility] [address] [place] [address] Delroy Felix, GASOLINE ENGINE INSPECTOR 04/30/2025 Travel 04/26/2025 11:00 AM EDT Treatment [facility] [address] [place] [address] Delroy Felix, GASOLINE ENGINE INSPECTOR Spondylosis without myelopathy or radiculopathy, lumbosacral region (Primary Dx); Arthritis of lumbar spine; Sedentary lifestyle 04/26/2025 Bamboo flowsheet [facility] [place] [facility] [address] [place] [address] Delroy Felix, GASOLINE ENGINE INSPECTOR 04/26/2025 Travel 04/23/2025 11:00 AM EDT Evaluation [facility] [place] [facility] [address] [place] [address] Leny Chacon, PT Spondylosis without myelopathy or radiculopathy, lumbosacral region (Primary Dx) 04/23/2025 Plan of Care Documentation [facility] [place] [facility] [address] [place] [address] 04/23/2025 Bamboo flowsheet [facility] [place] [facility] [address] [place] [address] Leny Chacon, PT 04/23/2025 Travel from Last 3 Months Immunizations Immunization Administration Dates Next Due Influenza, injectable, MDCK, preservative free, quadrivalent 06/17/2018 Influenza, injectable, quadr ivalent, preservative free 08/23/2023,06/22/2020,05/19/2020,2018,06/23/2018,05/22/2016 Influenza, seasonal, injecta ble, preservative free 07/25/2015 Family History Medical History Relation Name Comments Coronary artery disease Father Diabetes Maternal Grandfather Papaw samples Parkinsonism Mother Diabetes Sister Judith Relation Name Status Comments Father Maternal Grandfather Papaw samples Alive Mother Sister Judith Alive Social History Tobacco Use Types Packs/Day Years Used Date Smoking Tobacco: Every Day Cigarettes Passive Smoke Exposure: Past Smokeless Tobacco: Never Tobacco Cessation:Ready to Q uit: Not Asked; Counseling Given: Not Answered Alcohol Use Standard Drinks/Week Comments Never 0 (1 standard drink = 0.6 oz pur e alcohol) Comments Unknown Sex and Gender Information Value Date Recorded Sex Assigned at Not on file Legal Sex Female 7:47 PM EDT Gender Identity Not on file Sexual Orientation Not on file Last Filed Vital Signs Vital Sign Reading Time Taken Comments Blood Pressure 128/82 12/30/2024 2:32 PM EDT Pulse 99 12/30/2024 2:32 PM EDT Temperature - - Respiratory Rate - - Oxygen Saturation 91% 12/30/2024 2:32 PM EDT Inhaled Oxygen Concentration - - Weight 111 kg (245 lb 3.2 oz) 01/06/2025 9:15 AM EDT Height 147.3 cm (4' 10 ) 01/06/2025 9:15 AM EDT Body Mass Index 51.25 01/06/2025 9:15 AM EDT Plan of Treatment Upcoming Encounters Date Type Department Care Team (Late st Contact Info) Description 05/19/2025 12:30 PM EDT Treatment [facility] [place] [facility] [address] [place] [address] Nancy Russell PTA Health Maintenance Due Date Last Done Comments CT Colonography 1961 Colonoscopy 1961 Colorectal Cancer Screening 1961 FIT-DNA 1961 FIT 1961 FOBT 1961 Sigmoidoscopy 1961 Pap Smear 1982 Cervical Cancer Screening 1991 HPV/Cotest 1991 Mammogram 2001 Influenza Vaccine (#1) 2025 4, 06/22/2020, 05/19/2020, [place] [address] MEDICARE MEDICAID [place] Care Teams Civil Clerk Relationship Specialty Start Date End Date Sisi Schafer MD [address] [place] [id number] Primary Care Provider Family Medicine 12/24/24
--- OUTSIDE RECORDS SUMMARY | 2025-05-17 10:17 | XMS_ITS | Encounter Summary ---
Author Organization [facility] Address [address] [place] [address] Care Team Providers Care Law Office Receptionist Name Role Phone Sisi Schafer MD Unavailable [phone] Encounter Details Date Type Department Care Team (Late Contact Info) Description 05/05/2025 Bamboo flowsheet [facility] [address] [place] [address] Delroy Felix PTA Social History Tobacco Use Types Packs/Day Years [...] Encounters Date Type Department Care Team (Late Contact Info) Description 05/19/2025 12:30 PM EDT Treatment [facility] [address] [place] [address] Nancy Russell PTA documented as of this encounter Visit Diagnoses Not on filedocumented in this encounter Care Teams Law Office Receptionist Relationship Specialty Start Date End Date Sisi Schafer MD [address] [place] [address] Primary Care Provider Family Medicine 12/24/24 documented as of this encounter
--- OUTSIDE RECORDS SUMMARY | 2025-05-17 10:17 | XMS_ITS | Encounter Summary ---
Author Organization [facility] Address [address] [place] [address] Care Team Providers Care Systems Management Consultant Name Role Phone Sisi Schafer MD Unavailable Encounter Details Date Type Department Care Team (Latest Contact Info) Description 05/05/2025 Travel Social History Tobacco Use Types Packs/Day Years [...] Physical Therapy [address] [place] [address] Nancy Russell, INDUSTRIAL COOK documented as of this encounter Visit Diagnoses Not on filedocumented in this encounter Care Teams Systems Management Consultant Relationship Specialty Start Date End Date Sisi Schafer MD [facility] [place] [address] Primary Care Provider Family Medicine 12/24/24 documented as of this encounter
--- OUTSIDE RECORDS SUMMARY | 2025-05-17 10:17 | XMS_ITS | Encounter Summary ---
Author Organization [facility] Address [address] [place] [address] Phone Care Team Providers Care Regulatory Scientist Name Role Phone Sisi Schafer Primary Care Provider Encounter Details Date Type Department Care Team (Late st Contact Info) Description 07/31/2021 Orders Only [facility] [address] [place] [address] Conversion, Onbase Social History Tobacco Use Types [...] r Schedule OUTSIDE LAB SCAN Lab Ordered: 07/31/2021 documented as of this encounter Visit Diagnoses Not on filedocumented in this encounter Care Teams Regulatory Scientist Relationship Specialty Start Date End Date Sisi Schafer APRN-CNP [address] [place] [address] PCP - General 07/10/22 documented as of this encounter
--- OUTSIDE RECORDS SUMMARY | 2025-05-17 10:17 | XMS_ITS | Clinical Summary ---
Author Organization [facility] Address [address] [place] [address] Phone Care Team Providers Care Junior Account Manager Name Role Phone Hanh Sisi Osei NURSE MONITORING-LANDFILL GAS TECHNICIAN Primary Care Provider Allergies Active Allergy Reactions Criticality Noted Date Comments Doxycycline Palpitations Low 04/02/2024 Gabapentin Confusion 04/02/2024 [place] Hallucinations 04/02/2024 Pregabalin Confusion 04/02/2024 Medications azelastine (Optivar) 0.05 % ophthalmic solution INSTILL 1 DROP INTO AFFECTED EYE TWICE A DAY Active ziprasidone (Geodon) 20 mg capsule 1 capsule (20 mg) early in the morning.. Active ziprasidone (Geodon) 80 mg capsule Take 1 capsule (80 mg) by mouth once daily at bedtime. Active nortriptyline (Pamelor) 50 mg capsule Take 1 capsule (50 mg) by mouth once daily at bedtime. Active irbesartan (Avapro) 150 mg tablet Take 1 tablet (150 mg) by mouth once daily. Active allopurinol (Zyloprim) 300 mg tablet Take 1 tablet (300 mg) by mouth once daily. Active traZODone (Desyrel) 50 mg tablet TAKE 2 TABLETS BY MOUTH EVERY DAY AT BEDTIME NEEDED FOR SLEEP Active hydroCHLOROthia zide (HYDRODiuril) 25 mg tablet Take 1 tablet (25 mg) by mouth once daily. Active levothyroxine (Synthroid, Levoxyl) 150 mcg tablet Take 1 tablet (150 mcg) by mouth once daily in the morning. Take before meals. Active omeprazole (PriLOSEC) [address] capsule Take 1 capsule (40 mg) by mouth 2 times a day. Active Trelegy Ellipta 100-62.5-25 mcg blister with device Inhale 1 puff once daily. Active fluticasone (Flonase) 50 mcg/actuation nasal spray Administer 1 spray into each nostril once daily. Active cetirizine (ZyrTEC) 10 mg tablet Take 1 tablet (10 mg) by mouth once daily. Active magnesium 250 mg tablet Take 1 tablet (250 mg) by mouth early in the morning.. Active b complex 0.4 mg tablet Take 1 tablet by mouth once daily. Active cholecalciferol (Vitamin D3) 25 MCG (1000 UT) capsule Take 1 capsule (25 mcg) by mouth once daily. Active vitamin K2 180 mcg capsule Take 1 capsule by mouth early in the morning.. Active turmeric root extract 500 mg capsule Take 1 capsule by mouth early in the morning.. Active omega 4-qyw-fhn-fish oil (Fish OiL) 1,200 (144-216) mg capsule Take 1 capsule (1,200 mg) by mouth early in the morning.. Active naproxen (EC Naprosyn) 500 mg EC tablet Take 1 tablet (500 mg) by mouth 2 times a day. Do not crush, chew, or split. Active acetaminophen (Tylenol) 500 mg tablet Take 1 tablet (500 mg) by mouth 2 times a day. Active Active Problems Problem Noted Date Diagnosed Date Chest pain 04/02/2024 Essential hypertension 04/02/2024 Hyperlipidemia 04/02/2024 Sleep apnea 04/02/2024 COPD (chronic obstructive pulmonary disease) (Mu lti) 04/02/2024 Diabetes mellitus type II, non insulin dependent (Multi) 04/02/2024 Palpitations 04/02/2024 Exertional dyspnea 04/02/2024 BMI 45.0-49.9, adult (Multi) 04/02/2024 Current smoker 04/02/2024 Family History Medical History Relation Name Comments atherosclerosis Father Hyperlipidemia Mother Hypertension Mother Parkinsonism Mother Diabetes Sister Relation Name Status Comments Father Mother Sister Social History Tobacco Use Types Packs/Day Years Used Date Smoking Tobacco: Every Day Cigarettes Smokeless Tobacco: Never Tobacco Cessation:Counseling Given: Yes Alcohol Use Standard Drinks/Week Comments Never 0 (1 standard drink = 0.6 oz pur e alcohol) Comments Unknown Sex and Gender Information Value Date Recorded Sex Assigned at Not on file Legal Sex Female 10:05 AM EST Gender Identity Not on file Sexual Orientation Not on file Last Filed Vital Signs Vital Sign Reading Time Taken Comments Blood Pressure 118/76 05/25/2024 11:41 AM EDT Pulse 77 05/25/2024 11:41 AM EDT Temperature - - Respiratory Rate - - Oxygen Saturation - - Inhaled Oxygen Concentration - - Weight 104 kg (229 lb) 04/02/2024 3:05 PM EDT Height 147.3 cm (4' 10 ) 04/02/2024 3:05 PM EDT Body Mass Index 47.86 04/02/2024 3:05 PM EDT Plan of Treatment Health Maintenance Due Date Last Done Comments CT Colonography 1961 Colonoscopy 1961 Colorectal Cancer Screening 1961 Diabetes: Hemoglobin A1C 1961 Diabetes: Urine Protein Screening 1961 FIT-DNA (Cologuard) 1961 FIT 1961 HIV Screening 1961 Lipid Panel 1961 Sigmoidoscopy 1961 TSH Level 1961 MMR Vaccines (1 of 1 - Standard series) 1962 Hepatitis C Screening 1979 Pneumococcal Vaccine (1 of 2 - PCV) 01/12/1980 Cervical Cancer Screening 1982 HPV/Cotest 1982 Pap Smear 1982 DTaP/Tdap/Td Vaccines (1 - Tdap) 1983 Mammogram 2001 Zoster Vaccines (1 of 2) 2011 RSV High Risk: (Elderly (60+) or Population) (1 - Risk 60-74 years 1-dose series) 2021 COVID-19 Vaccine (3 - season) 2025 11/29/2020, 11/07/2020 Influenza Vaccine (#1) 2025 , 06/22/2020, 05/19/2020, Additional history exists Medicare Annual Wellness Visit (AWV) 06/26/2025 06/25/2024 Diabetes: Retinopathy Screening 12/24/2026 12/24/2024 HIB Vaccines Aged Out No longer eligi ble based on patient's age to complete this topic HPV Vaccines Aged Out No longer eligi ble based on patient's age to complete this topic Hepatitis A Vaccines Aged Out No long er eligible based on patient's age to complete this topic Hepatitis B Vaccines Aged Out No long er eligible based on patient's age to complete this topic IPV Vaccines Aged Out No longer eligi ble based on patient's age to complete this topic Meningococcal Vaccine Aged Out No janeth lorraine eligible based on patient's age to complete this topic Rotavirus Vaccines Aged Out No longer eligible based on patient's age to complete this topic Insurance MEDICARE PART A AND B MEDICAID [facility] MEDICARE PART A AND B MEDICAID [facility] [employer] PL[employer] Care Teams Junior Account Manager Relationship Specialty Start Date End Date Sisi Schafer APRN-NEHAL [address] [place] [address] PCP - General 07/10/22
[2025-05-17 10:43] LABS: Hematocrit 40.8 % (36.0-48.0); Hemoglobin 14.0 g/dL (12.0-16.0); Immature Granulocytes Abs Auto 0.06 10^3/uL (0.00-0.03); Immature Granulocytes Pct Auto 0.6 % (0.0-0.5); Lymphocytes Absolute Auto 2.5 10^3/uL (1.2-3.8); Mean Corpuscular HGB Conc 34.3 g/dL (29.9-35.2); Mean Corpuscular Hemoglobin 32.4 pg (26.7-34.0); Mean Corpuscular Volume 94.4 fL (81.0-99.0); Platelet Count 246 10^3/uL (150-450); Red Blood Count 4.32 10^6/uL (4.20-5.40); White Blood Count 9.5 10^3/uL (4.0-11.0)
[2025-05-17 11:25] LABS: Alanine Aminotransferase 122 U/L (14-59); Albumin Globulin Ratio 1.0; Albumin Level 3.7 g/dL (3.4-5.0); Alkaline Phosphatase 155 U/L (46-116); Anion Gap 13.4; Aspartate Amino Transferase 32 U/L (15-37); Blood Urea Nitrogen 12.0 mg/dL (7.0-18.0); Calcium 9.3 mg/dL (8.5-10.1); Carbon Dioxide 28.7 mmol/L (21.0-32.0); Chloride 97 mmol/L (98-107); Estimated GFR (African America >60 (>=60 mL/min/1.73m^2); Estimated GFR (Non-African Ame >60 (>=60 mL/min/1.73m^2); Free T3 1.01 pg/mL (2.18-3.98); Globulin 3.8 g/dL; Glucose 79 mg/dL (74-106); NT Pro B Type Natriuretic Pept 68.0 pg/mL (<=900.0); Potassium 4.1 mmol/L (3.5-5.1); Sodium 135 mmol/L (136-145); Thyroid Stimulating Hormone 3.330 uIU/mL (0.358-3.740); Total Protein 7.5 g/dL (6.4-8.2)
== END 2025-05-17 10:11 | disposition home or self-care (01) ==
LOC: LAB 10:15
PROVIDERS: PCP Nurse Practitioner Family; Visit Provider Nurse Practitioner Family
DX: E03.9 Hypothyroidism, unspecified (principal); D50.9 Iron deficiency anemia, unspecified; I50.30 Unspecified diastolic (congestive) heart failure; I11.0 Hypertensive heart disease with heart failure
CPT/HCPCS: 36415; 80053; 83880; 84436; 84443; 84481; 85025

== ENCOUNTER 2025-06-02 10:50 | Outpatient (OUT) | payer MEDICARE, MEDICAID, SELFPAY ==
--- OUTSIDE RECORDS SUMMARY | 2025-05-03 09:00 | XMS_ITS ---
Author Organization [facility] in [place] Address [address] [place] [address] Care Team Providers Care Reel Fed Printer Name Role Phone Sisi Schafer Primary Care Provider REASON FOR VISIT SINUS INFECTION, ACID REFLUX Encounters Encounter Location Date Provider Diagnosis [address] [address] 05/03/2025 Sisi Schafer Plan Of Treatment No Information Progress Notes * Milo WOMACK LDOB:1960 (65 yo F)Acc No.[id number]:05/03/2025 UNLOCKED PROGRESS NOTE Progress Note Patient: Milo DONG Provider: Nichole Schafer CNP (TTC) :1960 A ge:65 Y S ex:Female Date:05/03/2025 Address:[address] [place] [address] [address], [place], [id number] Subjective: * Chief Complaints: * 1 . SINUS INFECTION, ACID REFLUX. * Medical History: Objective: * Vitals: Assessment: Plan: * Treatment: * * Electronic signature of Fabi Olivia NP, SITE COORDINATOR.TRUST ACCOUNTS [id number] on 06/02/2025 at 10:54 AM EDT Sign off status: Pending Visit Status: C ANCPHONE (Cancelled Phone) * Provider: Nichole Schafer CNP (TTC) Date: 0 05/03/2025 Generated for Joan serra/Francis/Isael on: 1 10:54 AM EDT
--- OUTSIDE RECORDS SUMMARY | 2025-05-21 06:30 | XMS_ITS ---
Author Organization The [facility] in [place] Address [address] [place] [address] Care Team Providers Care Data Officer Name Role Phone Sisi Schafer Primary Care Provider Allergies Allergen (clinical drug ingredient) Drug/Non Drug Allergy documented on EMR Reaction Allergy Type Onset Date Status lisinopril Lisinopril cough Drug Allergy Activ e Substance with 8-lcvtzat-0-methylgluta ryl-coenzyme A reductase inhibitor mechanism of action (substance) Statins myalgias Drug Allergy Active REASON FOR VISIT legs still swollen/bruising and multiple other issues Medications Medication SIG (Take, Route, Frequency, Duration) Notes Start Date End Date Status Singulair 10 MG 1 tablet Orally Once a day; Duration: 30 days 11/23/2024 Active Pravastatin Sodium 40 MG 1 tablet Orally Once a day Active Trelegy Ellipta 100-62.5-25 MCG/ACT INHALE 1 PUFF BY MOUTH ONCE DAILY; Duration: 30 Active traZODone HCl 50 MG TAKE 1 TABLET BY MOUTH EVERY DAY AT BEDTIME NEEDED FOR 30 DAYS; Duration: 90 days Active Tetracycline HCl 500 MG 1 capsule on an empty stomach Orally every 12 hrs; Duration: 10 day(s) 09/01/2024 Active Potassium Chloride ER 10 MEQ TAKE 1 TABLET BY MOUTH TWICE A DAY; Duration: 90 Active Polyethylene Glycol 3350 17 GM 1 packet mixed with 8 ounces of fluid Oral Once a day prn; Duration: 30 days Active Omeprazole 40 MG 1 capsule Orally BID; Duration: 30 days Active Nortriptyline HCl 50 MG 1 capsule Orally Once a day Active Magnesium 400 MG 1 tablet Orally Once a day Active Ipratropium [place] 0.03 % SPRAY 2 SPRAY S INTO EACH NOSTRIL TWICE A DAY; Duration: 90 Active Liothyronine Sodium 5 MCG 2 tablet on an empty stomach Orally daily; Duration: 30 days 11/13/2024 Active Levothyroxine Sodium 150 MCG 1 tablet in the morning on an empty stomach Orally Once a day; Duration: 90 days Active Lasix 20 MG 1 tablet Orally Once a day; Duration: 30 days 10/17/2023 Active Irbesartan 150 MG TAKE 1 TABLET BY MOUTH EVERY DAY; Duration: 90 Active hydroCHLOROthiazide 25 MG 1 tablet Orall y Once a day; Duration: 90 days Active Geodon 80 MG 1 capsule with food Orally Twice a day Active Garlic Active Fluticasone Propionate 50 MCG/ACT USE 1 SPRAY IN EACH NOSTRIL ONCE A DAY; Duration: 90 Active Fish Oil Active Famotidine 40 MG 1 tablet Orally Once a day Active Ezetimibe 10 MG TAKE 1 TABLET BY MOUTH EVERY DAY; Duration: 90 Active DULoxetine HCl 20 MG 1 capsule Orally Once a day; Duration: 5 days Active CPAP Supplies - Mask and Tubing; Duration: 365 days 05/13/2024 Active Cholecalciferol 50 MCG (2000 UT) 1 tablet Orally Once a day Active Cetirizine HCl 10 MG 1 tablet Orally Once a day; Duration: 90 days Active Baclofen 10 MG TAKE 1 TABLET BY MOUTH TWICE A DAY NEEDED; Duration: 90 Active Azithromycin 250 MG as directed Orally daily; Duration: 5 days take 2 tablets po on first day than 1 tablet po days 2-5 05/18/2025 Active Azelastine HCl 0.05 % INSTILL 1 DROP INTO AFFECTED EYE TWICE A DAY; Duration: 84 days Active Allopurinol 300 MG TAKE 1 TABLET BY MOUTH EVERY DAY; Duration: 90 Active Berenice-D Allergy & Congestion 60-120 MG 1 tablet as needed Orally Twice a day; Duration: 14 days 01/29/2025 Active Albuterol Sulfate HFA 108 (90 Base) MCG/ACT 1 puff as needed Inhalation every 4 hrs; Duration: 30 days Active Albuterol Sulfate (2.5 MG/3ML) 0.083% 3 mL as needed Inhalation every 6 hrs; Duration: 7 days 05/08/2023 Active Social History Tobacco Use: Social History Observation Description Date Details (start date - stop date) Current Smoker NA - NA Tobacco Use/Smoking Question Answer Notes Patient is a current smoker How often do you smoke cigarettes? every day How many cigarettes a day do you smoke? 31 or mo re How soon after you wake up do you smoke your fir st cigarette? within 5 minutes Are you interested in quitting? Not ready to shirlene t AUDIT-C (Standard) Question Answer Notes Did you have a drink containing alcohol in the p ast year? No Points 0 Interpretation Negative Vital Signs Weight 256.8 lbs 05/21/2025 Height 59 in 05/21/2025 Blood pressure systolic 150 mm Hg 05/21/20 25 Blood pressure diastolic 90 mm Hg 025 BMI 51.86 kg/m2 05/21/2025 Encounters Encounter Location Date Provider Diagnosis [facility] [address] [place] [address] 05/21/2025 Sisi Schafer Chronic venous insufficiency I87.2 Assessments Encounter Date Diagnosis (ICD Code) Assessment Notes Treatment Notes Treatment Clinical Notes Section Notes 05/21/2025 Chronic venous insufficiency (ICD-10 - I87.2) has gained wt increased sedentary lately wasnt taking meds increase lasix dose to 40 mg over weekend, dont skip HCTZ limit salt, elevate legs, discussed michelle jay, has some, cant get on vein clinic referral pending echo Plan Of Treatment Treatment Notes Assessment Notes Chronic venous insufficiency has gained wt increased sedentary lately wasnt taking meds increase lasix dose to 40 mg over weekend, dont skip HCTZ limit salt, elevate legs, discussed michelle jay, has some, cant get on vein clinic referral pending echo Next Appt Details Follow Up: prn,2 Weeks, Reas on: Progress Notes * Milo WOMACK LDOB:1960 (65 yo F)Acc No.[id number]:05/21/2025 Progress Note Patient: Milo DONG Provider: Nichole Schafer ([facility]), NEHAL :1960 A ge:65 Y S ex:Female Date:05/21/2025 Address:[address] [place], [place] [id number] Check In:10:13 AM ESTCheck O ut:10:40 AM EST Subjective: * Chief Complaints: * 1 . Legs still swollen/bruising and multiple other issues. * HPI: G eneral: only took 2 days of 40 mg lasix hasnt been taking HCTZ, just restarted LE swelling same no improvement [facility] cardiology , is going to make apt. * ROS: G eneral/Constitutional: Fever d enies. H eadache d enies. W eight loss?denies. O phthalmologic: Discharge d enies. E ye Pain d enies. I tching and redness d enies. E NT: Nasal discharge d enies. N familia congestion d enies.?Sore throat d enies. C ardiovascular: Chest tightness/ heavy pressure d enies. R apid heart rate d enies. S welling of extremities a dmits BL LE and feet. C hest pain d enies. R espiratory: Productive cough d enies. C hest pain d enies. C ough d enies. S hortness of breath d enies. W heezing d enies. ? G astrointestinal: Abdominal pain d enies. C onstipation d enies. D ecreased appetite d enies. D iarrhea d enies. N ausea d enies. V omiting?denies. G enitourinary: Urinary incontinence d enies. P ainful urination d enies. M usculoskeletal: Back pain d enies. N sandy pain d enies. M uscle aches d enies. S kin: Rash d enies. S kin lesion(s) d enies. ? * Active Problem List R00.2 Palpitations Modified On:01/18/2023U Status:confirmed R73.01 Impaired fasting glu cose Modified On:01/18/2023U Status:confirmed R53.83 Fatigue Modified On:10/17/2023U Status:confirmed E78.5 Hyperlipemia Modified On:01/18/2023 Status:confirmed I10 Hypertension Modified On:01/18/2023U Status:confirmed F17.210 Cigarette smoker Modified On:01/18/2023U Status:confirmed K21.9 GERD (gastroesophage al reflux disease) Modified On:01/18/2023 Status:confirmed E03.9 Hypothyroidism Modified On:01/18/2023 Status:confirmed E66.9 Obesity Modified On:02/14/2023U Status:confirmed M19.90 Arthritis Modified On:01/18/2023 Status:confirmed R06.00 Dyspnea Modified On:01/18/2023U Status:confirmed R07.89 Chest pain of unknow n etiology Modified On:01/18/2023 Status:confirmed M25.519 Shoulder pain Modified On:01/18/2023 Status:confirmed E55.9 Vitamin D deficiency Modified On:01/18/2023 Status:confirmed L73.2 Hidradenitis suppura tiva Modified On:01/18/2023 Status:confirmed M54.9 Back pain Modified On:01/18/2023 Status:confirmed M25.551 Hip pain, right Modified On:01/18/2023 Status:confirmed G47.33 Obstructive sleep ap elder (adult) (pediatric) Modified On:01/18/2023 Status:confirmed H81.399 Other peripheral kevin tigo, unspecified ear Modified On:01/18/2023 Status:confirmed F31.9 Bipolar affective di sorder Modified On:01/18/2023U Status:confirmed L98.9 Skin lesion Modified On:01/18/2023U Status:confirmed M25.562 Knee pain, left Modified On:01/18/2023U Status:confirmed M25.531 Wrist pain, right Modified On:01/18/2023U Status:confirmed M53.3 Sacroiliac joint peter n Modified On:01/18/2023U Status:confirmed M10.9 Acute gout Modified On:01/18/2023U Status:confirmed M25.512 Pain in joint of lef t shoulder Modified On:01/18/2023U Status:confirmed Z68.43 BMI 50.0-59.9, adult Modified On:01/18/2023 Status:confirmed M54.31 Sciatic pain, right Modified On:01/18/2023 Status:confirmed Z00.00 Wellness examination Modified On:01/18/2023 Status:confirmed I87.2 Chronic venous insuf ficiency Modified On:01/18/2023 Status:confirmed M25.511 Pain, joint, shoulde r, right Modified On:01/18/2023 Status:confirmed R94.39 Abnormal cardiovascu lar stress test Modified On:01/18/2023 Status:confirmed M75.41 Shoulder impingement syndrome, right Modified On:01/18/2023 Status:confirmed E11.9 Diabetes mellitus, t ype 2 Modified On:08/15/2023 Status:confirmed M17.11 Osteoarthritis of ri ght knee Modified On:01/18/2023 Status:confirmed M54.59 Other low back pain Modified On:01/18/2023 Status:confirmed J30.2 Seasonal allergic rh initis Modified On:01/18/2023 Status:confirmed M79.675 Pain in left toe(s) Modified On:01/18/2023 Status:confirmed M54.32 Sciatic pain, left Modified On:01/18/2023 Status:confirmed R73.9 Blood glucose elevat ed Modified On:01/18/2023 Status:confirmed J30.2 Other seasonal aller gic rhinitis Modified On:01/07/2023 Status:confirmed G47.00 Insomnia, unspecifie d Modified On:01/07/2023 Status:confirmed E78.5 Hyperlipidemia, unsp ecified Modified On:02/14/2023 Status:confirmed J32.9 Chronic sinusitis, u nspecified Modified On:04/19/2023 Status:confirmed G62.9 Neuropathy Modified On:08/15/2023 Status:confirmed J32.9 Sinusitis Modified On:09/19/2023U Status:confirmed M54.30 Sciatica Modified On:10/17/2023U Status:confirmed G57.00 Piriformis syndrome Modified On:08/23/2024W/U Status:confirmed Z91.199 Noncompliance Modified On:10/22/2024U Status:confirmed M79.7 Fibromyalgia Modified On:01/29/2025/U Status:confirmed M54.32 Sciatica, left Modified On:03/10/2025U Status:confirmed K59.00 Constipation Modified On:04/12/2025 Status:confirmed * Medical History: E ar pain, right, Acute bronchitis, Pneumonia, BMI 50.0-59.9, adult, Over weight, Other low back pain, Impacted cerumen, bilateral, Obesity, Hip pain, right, Other peripheral vertigo, unspecified ear, Abnormal cardiovascular stress test, Palpitations, Chest pain of unknown etiology, Pain in left toe(s), Onychomycosis, Pain in right toe(s), Arthritis, COVID-19 virus infection, Sciatic pain, left, Other cough, Sinusitis, Knee pain, left, Wellness examination, Skin lesion, Shoulder impingement syndrome, right, Complete rotator cuff tear or rupture of right shoulder, not specified as traumatic, Diabetes mellitus, type 2, Sciatic pain, right, Fatigue, Hidradenitis suppurativa, Seasonal allergic rhinitis, BMI 50.0-59.9, adult, Vertigo, Blood glucose elevated, Pain, joint, shoulder, right, Osteoarthritis of right knee, Acute gout, Vitamin D deficiency, Wrist pain, right, Sacroiliac joint pain, Pain in joint of left shoulder, Osteoarthritis, Chronic venous insufficiency, Back pain, Shoulder pain, Dyspnea, Candidiasis, unspecified, Impaired fasting glucose, Hypothyroidism, Weight gain, Hyperlipemia, Cigarette smoker, Obstructive sleep apnea (adult) (pediatric), GERD (gastroesophageal reflux disease), URI (upper respiratory infection), Seborrheic dermatitis, Hypertension, Bipolar affective disorder. * Surgical History: C Section , Uterus Removal , Right- Knee Replacement , Left- Middle Digit . * Hospitalization/Major Diagno stic Procedure: s ee above . * Family History: F ather: 60 yrs. M other: 83 yrs, Parkinsons. B rother(s): alive, Cerebral vascular accident. S ister(s): alive, fibromyalgia, type II diabetes, diagnosed with Diabetes. D liyaer(s): alive. 2 brother(s) , 2 sister(s) - healthy. 2 daughter(s) . . * Social History: T obacco Use: T obacco Use/Smoking P atient is a c urrent smoker H ow often do you smoke cigarettes? e very day H ow many cigarettes a day do you smoke? 3 1 or more H ow soon after you wake up do you smoke your first cigarette? w ithin 5 minutes A re you interested in quitting? N ot ready to quit D rug/Alcohol: A NEEL-C (Standard) D id you have a drink containing alcohol in the past year? N o P oints 0 I nterpretation N egative * Medications: T aking Albuterol Sulfate (2.5 MG/3ML) 0.083% Nebulization Solution 3 mL as needed Inhalation every 6 hrs , Taking Albuterol Sulfate HFA 108 (90 Base) MCG/ACT Aerosol Solution 1 puff as needed Inhalation every 4 hrs , Taking Berenice-D Allergy & Congestion(Fexofenadine-Pseudoephed ER) 60-120 MG Tablet Extended Release 12 Hour 1 tablet as needed Orally Twice a day , Taking Allopurinol 300 MG Tablet TAKE 1 TABLET BY MOUTH EVERY DAY , Taking Azelastine HCl 0.05 % Solution INSTILL 1 DROP INTO AFFECTED EYE TWICE A DAY , Taking Azithromycin 250 MG Tablet as directed Orally daily , Notes to Pharmacist: take 2 tablets po on first day than 1 tablet po days 2-5, Taking Baclofen 10 MG Tablet TAKE 1 TABLET BY MOUTH TWICE A DAY NEEDED , Taking Cetirizine HCl 10 MG Tablet 1 tablet Orally Once a day , Taking Cholecalciferol 50 MCG (2000 UT) Tablet 1 tablet Orally Once a day , Taking CPAP Supplies - - Mask and Tubing , Taking DULoxetine HCl 20 MG Capsule Delayed Release Particles 1 capsule Orally Once a day , Taking Ezetimibe 10 MG Tablet TAKE 1 TABLET BY MOUTH EVERY DAY , Taking Famotidine 40 MG Tablet 1 tablet Orally Once a day , Taking Fish Oil , Taking Fluticasone Propionate 50 MCG/ACT Suspension USE 1 SPRAY IN EACH NOSTRIL ONCE A DAY , Taking Garlic , Taking Geodon 80 MG Capsule 1 capsule with food Orally Twice a day , Taking hydroCHLOROthiazide 25 MG Tablet 1 tablet Orally Once a day , Taking Ipratropium [place] 0.03 % Solution SPRAY 2 SPRAYS INTO EACH NOSTRIL TWICE A DAY , Taking Irbesartan 150 MG Tablet TAKE 1 TABLET BY MOUTH EVERY DAY , Taking Lasix(Furosemide) 20 MG Tablet 1 tablet Orally Once a day , Taking Levothyroxine Sodium 150 MCG Tablet 1 tablet in the morning on an empty stomach Orally Once a day , Taking Liothyronine Sodium 5 MCG Tablet 2 tablet on an empty stomach Orally daily , Taking Magnesium 400 MG Tablet 1 tablet Orally Once a day , Taking Nortriptyline HCl 50 MG Capsule 1 capsule Orally Once a day , Taking Omeprazole 40 MG Capsule Delayed Release 1 capsule Orally BID , Taking Polyethylene Glycol 3350 17 GM Packet 1 packet mixed with 8 ounces of fluid Oral Once a day prn , Taking Potassium Chloride ER 10 MEQ Tablet Extended Release TAKE 1 TABLET BY MOUTH TWICE A DAY , Taking Pravastatin Sodium 40 MG Tablet 1 tablet Orally Once a day , Taking Singulair(Montelukast Sodium) 10 MG Tablet 1 tablet Orally Once a day , Taking Tetracycline HCl 500 MG Capsule 1 capsule on an empty stomach Orally every 12 hrs , Taking traZODone HCl 50 MG Tablet TAKE 1 TABLET BY MOUTH EVERY DAY AT BEDTIME NEEDED FOR 30 DAYS , Taking Trelegy Ellipta(Pjajlzbjzjx-Sctyiwwub-Zqivci) 100-62.5-25 MCG/ACT Aerosol Powder Breath Activated INHALE 1 PUFF BY MOUTH ONCE DAILY , Medication List reviewed and reconciled with the patient * Allergies: L isinopril: cough, Statins: myalgias. Objective: * Vitals: W t:256.8lbs, Ht: 59 in, BP:150/90mm Hg, BMI:51.86Index, Ht-cm: 149.86 cm, Wt-k.48 kg. * Examination: G eneral Examinations: GENERAL APPEARANCE: a lert and oriented, in no acute distress, morbidly obese. EYES: c onjunctiva normal, sclera non-icteric. NOSE: n ormal external appearance. LUNGS: d iminished breath sounds in the bases. CARDIO: r egular rate and rhythm, S1, S2 normal. MUSCULOSKELETAL: G ait and station normal. SKIN: w arm and dry. Assessment: * Assessment: 1. C hronic venous insufficiency - I87.2 (Primary) Plan: * Treatment: * Preventive Medicine: Screenings/Counseling: B DC ACTION PLAN Above Normal BMI Follow-up D ietary management education, guidance, and counseling T OBACCO ACTION PLAN Patient counselled on the dangers of tobacco use and urged to quit. . * Follow Up: p rn,2 Weeks * * Electronically signed by Janelle Schafer , BILLBOARD POSTER HELPER, COOKING TEACHER.[email or web address] [id number] on 05/24/2025 at 12:58 PM EDT Sign off status: Completed Visit Status: C HK (Check Out) true * Provider: Nichole Schafer (AMELIE), SECOND STEWARD Date: Generated for Joan serra/Francis/eTransmitting on: 10:53 AM EDT History and Physical Notes * HPI (History of Present Illness) Category Sub-Category Detail Notes Category Not es General only took 2 days of 40 mg lasix hasnt been taking HCTZ, just restarted LE swelling same no improvement Abhay cardiology , is going to make apt Examination Category Sub-Category Detail Notes Category Not es General Examinations GENERAL APPEARANCE: alert a nd oriented, in no acute distress, morbidly obese EYES: conjunctiva normal, sclera non-icteric EARS: NOSE: normal external appe arance THROAT: CARDIO: regular rate and rhy thm, S1, S2 normal LUNGS: diminished breath so unds in the bases ABDOMEN: SKIN: warm and dry BACK: MUSCULOSKELETAL: Gait and station nor mal LYMPH NODES:
--- OUTSIDE RECORDS SUMMARY | 2025-05-21 07:00 | XMS_ITS ---
Author Organization The [facility] [place] Address [address] [place] [address] Care Team Providers Care Medical Videographer Name Role Phone Sisi Schafer Primary Care Provider Reason For Referral Diagnosis 1 Bilateral lower extr emity edema (R60.0) Referral Organization [facility] ([place], [place]) Referring Provider First Name Sisi Referring Provider Last Name aHnh Referring Provider Speciality Family [facility] icine Referred Provider Specialty Vascular Leila grace Referral Priority Routine REASON FOR VISIT vein clinic Encounters Encounter Location Date Provider Diagnosis [address] [address] 05/21/2025 Sisi Schafer Bilateral lower extremity edema R60.0 Assessments Encounter Date Diagnosis (ICD Code) Assessment Notes Treatment Notes Treatment Clinical Notes Section Notes 05/21/2025 Bilateral lower extremity edema (ICD-10 - R60.0) Plan Of Treatment Referrals Referral Date Details 05/21/2025 05/21/2025 Progress Notes * Milo WOMACK LDOB:1960 (65 yo F)Acc No.[id number]:05/21/2025 Patient: Maral OLIVEIRA Milo Foster :1960 A ge:65 Y S ex:Female Address:[address] [place] [address] [address], [place] [address] Subjective: * Chief Complaints: * V ein clinic * Medical History: * Surgical History: * Hospitalization/Major Diagno stic Procedure: * Medications: Objective: * Vitals: * Physical Examination: Assessment: * Assessment: 1. B ilateral lower extremity edema - R60.0 (Primary) Plan: * Treatment: * Procedure Codes: * true * Date: Generated for Joan serra/Francis/Isael on: 1 10:54 AM EDT Consultation Request Notes Referral Date Referring Provider Referred Provider Not es 05/21/2025 Sisi Schafer ,
--- NOTE | 2025-06-02 10:53 | US_ITS ---
The [address] [address] Patient Name: AISHWARYA HARTMAN MRN: [id number] date: 1960 Sex: F Assigned Patient Location: [place] Current Patient Location: [place] Accession/Order Number: [id number] Exam Date: 06/02/2025 10:55 Report Date: 06/02/2025 11:47 At the request of: KIRSTIE SARAVIA Procedure: US right upper quadrant LIMITED ABDOMINAL ULTRASOUND - liver CLINICAL HISTORY: Elevated Liver Enzymes COMPARISON: None The gallbladder is physiologically distended. There is cholelithiasis as well as suspected gallbladder polyps. No wall thickening or pericholecystic fluid is seen. No intra- or extrahepatic biliary dilatation is evident. The common duct measures 4 - 5 mm. The liver is echogenic suggesting fatty infiltration. No intrahepatic masses are seen. There is appropriate hepatopetal flow within the main portal vein. The pancreas shows no significant sonographic abnormality. Evaluation of the right kidney reveals no hydronephrosis or fluid within Colin's pouch. US/US right upper quadrant IMPRESSION: FATTY LIVER. CHOLELITHIASIS AND GALLBLADDER POLYPS Impression dictated by: Mary Cerda M.D. 06/02/2025 11:47 AM Dictation Location: [place] [address] Electronically authenticated by: [id number] Y Date: 06/02/2025 11:47
--- OUTSIDE RECORDS SUMMARY | 2025-06-02 10:53 | XMS_ITS | Clinical Summary ---
Author Organization [employer] s tem Address [facility] [id number] [address] [place] [address] Care Team Providers Care Eeg Technician Name Role Phone Unavailable Primary Care Provider Unavailabl e Social History Tobacco Use Types Packs/Day Years Used Date Smoking Tobacco: Never Assessed Childcare Answer Date Recorded Childcare Unknown 01/28/2019 Employment Answer Date Recorded Employment Unknown 01/28/2019 Comments Unknown Sex and Gender Information Value Date Recorded Sex Assigned at Not on file Legal Sex Female 11:32 AM EDT Gender Identity Not on file Sexual Orientation Not on file Plan of Treatment Health Maintenance Due Date Last Done Comments Depression Screening 1973 Tobacco Screening 1973 Adult BMI Screening 1979 DTaP,Tdap and Td Vaccines (1 - Tdap) 01/12/1980 Pap Smear 1982 Zoster (Shingles) Vaccine (1 of 2) 2011 COVID-19 Vaccine (3 - 2024-2 6 season) 2025 11/29/2020, 11/07/2020 Influenza Vaccine 04/19/2025 06/22/2020, , 07/07/2019, Additional history exists Medical Devices Not on file Insurance MEDICARE
--- OUTSIDE RECORDS SUMMARY | 2025-06-02 10:54 | XMS_ITS | Encounter Summary ---
Author Organization [facility] Address [address] [place] [address] Phone Care Team Providers Care Deckhand Engineer Name Role Phone Sisi Schafer Primary Care Provider Encounter Details Date Type Department Care Team (Late st Contact Info) Description 07/31/2021 Orders Only [facility] [address] [place] [address] Conversion, Onbase Social History Tobacco Use Types [...] on filedocumented in this encounter Care Teams Deckhand Engineer Relationship Specialty Start Date End Date Sisi Schafer APRN-CNP [address] [place] [address] PCP - General 07/10/22 documented as of this encounter
--- OUTSIDE RECORDS SUMMARY | 2025-06-02 10:54 | XMS_ITS | Clinical Summary ---
Author Organization [facility] Address [address] [place] [address] Phone Care Team Providers Care Microbiology Lab Manager Name Role Phone Hanh Sisi Osei COOK SHIP-PRINTING EQUIPMENT MECHANIC Primary Care Provider Allergies Active Allergy Reactions Criticality Noted Date Comments Doxycycline Palpitations Low 04/02/2024 Gabapentin Confusion 04/02/2024 Winston Hallucinations 04/02/2024 Pregabalin Confusion 04/02/2024 Medications azelastine [...] with device Inhale 1 puff once daily. 4 Active fluticasone (Flonase) 50 mcg/actuation nasal spray [...] mouth early in the morning.. Active omega 6-zdc-lcf-fish oil (Fish OiL) 1,200 (144-216) mg capsule [...] apnea 04/02/2024 COPD (chronic obstructive pulmonary disease) Diabetes mellitus type II, non insulin dependent 04/02/2024 Palpitations 04/02/2024 Exertional dyspnea 04/02/2024 BMI 45.0-49.9, adult 04/02/2024 Current smoker 04/02/2024 Encounters Date Type Department Care Team Description 05/17/[address] [address] Katey Vang LPN Medical Advice/Question from Last 3 Months Family History Medical History Relation Name Comments [...] Insurance MEDICARE PART A AND B MEDICAID [facility] [employer] PLANS MEDICARE PART A AND B MEDICAID [email or web address] PLANS Care Teams Microbiology Lab Manager Relationship Specialty Start Date End Date Sisi Schafer, COOK SHIP-PRINTING EQUIPMENT MECHANIC [address] [place] [address] PCP - General 07/10/22
--- OUTSIDE RECORDS SUMMARY | 2025-06-02 10:55 | XMS_ITS | Patient Health Record ---
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 Name Role Phone Hanh, Sisi Primary Care Provider Ramsey Silva [phone] Allergies Allergen (clinical drug ingredient) Drug/Non Drug Allergy documented on EMR Reaction Allergy Type Onset Date Status lisinopril Lisinopril cough Drug Allergy Activ e Substance with 5-ohewhiy-5-methylgluta ryl-coenzyme A reductase inhibitor mechanism of action (substance) Statins myalgias Drug Allergy Active Results Component Value Reference Range Notes UA (Urinalysis, Dipstix only - w/o micro) Reviewed date:04/02/2025 01:38:01 PM Interpretation: Performing Lab: Notes/Report: COLOR yellow Yellow - Carol - CLARITY clear Clear - Clear GLUCOSE - 0 - 133 MG/DL ALBUMIN - NEG - NEG MG/DL BILIRUBIN 0 NEG - NEG MG/DL SPECIFIC GRAVITY 1.015 1.001 - 1.035 KETONES 0 NEG - NEG MG/DL BLOOD, UR 0 PH, UR 5.0 5 - 9 UROBILNOGEN 0 0.2 - 1 MG/DL NITRITE 0 NEG - NEG ESTERASE (LUPE) - NEG - NEG MG/DL BNP Reviewed date:05/17/2025 03:14:20 PM Interpretation: Performing Lab: Notes/Report: [facility] , NT Pro B Type Natriuretic Pept 68.0 <=900.0 pg /mL Performing Lab: see note ML - [facility] LB COPPER, SERUM or PLASMA Reviewed date:11/13/2024 09:19:08 AM Interpretation: Performing Lab: Notes/Report: [facility] , Copper Level 124 80-158 ug/dL This test was developed and its performance characteristics determined by [facility]. It has not been cleared or approved by the Food and Drug Administration. Detection Limit = 5 Performed at: [facility] [id number] Glass Blowing Instructor: Marbella Scales MD, Phone: [phone] Performing Lab: see note [facility] LB FOLATE Reviewed date:11/10/2024 12:59:04 PM Interpretation: Performing Lab: Notes/Report: [facility] , Folate 19.90 8.60-58.90 ng/mL Performing Lab: see note - [facility] GLYCOHEMOGLOBIN A1C Reviewed date:11/10/2024 12:59:04 PM Interpretation: Performing Lab: Notes/Report: [facility] , Glycohemoglobin A1C 6.1 4.5-6.2 % ADA RECOMMENDED LIMIT 4.0 - 6.0 ADA THERAPEUTIC TARGET < 7.0 ACTION SUGGESTED > 7.0 Estimated Average Glucose 128 Performing Lab: see note ML - [facility] IRON Reviewed date:11/10/2024 12:59:04 PM Interpretation: Performing Lab: Notes/Report: [facility] , Iron 121.0 50.0-170.0 ug/dL Performing Lab: see note - [facility] LB LAB TESTING Reviewed date:11/13/2024 09:22:49 AM Interpretation: Performing Lab: Notes/Report: [id number] Vitamin B2, Whole Blood [facility] , Miscellaneous Test COMMENT . Test Ordered: [id number] Vitamin B2, Whole Blood Vitamin B2, Whole Blood 320 ug/L Reference Range: 137-370 This test was developed and its performance characteristics determined by [facility]. It has not been cleared or approved by the Food and Drug Administration. Reference interval reflects Flavin Adenine Dinucleotide (FAD), that accounts for approximately 90% of the total riboflavin in whole blood. Performed at: [facility] [id number] Glass Blowing Instructor: Marbella Scales MD, Phone: [phone] Performed at: [address] [id number] Glass Blowing Instructor: Checo Judge PhD, Phone: [phone] Performing Lab: see note [facility] VITAMIN D 25 [place] Reviewed date:11/10/2024 12:59:04 PM Interpretation: Performing Lab: Notes/Report: [facility] , Vitamin D 30.9 <20 ng/mL Vit D deficient 20-<30 ng/mL Vit D insufficient 30-100 ng/mL Vit D sufficient >100 ng/mL Potential Toxicity Performing Lab: see note - [facility] Vitamin B6, Plasma Reviewed date:11/13/2024 09:22:32 AM Interpretation: Performing Lab: Notes/Report: [facility] , Vitamin B6, Plasma 13.1 3.4-65.2 ug/L This test was developed and its performance characteristics determined by [facility]. It has not been cleared or approved by the Food and Drug Administration. Deficiency: <3.4 Marginal: 3.4 - 5.1 Adequate: >5.1 Performed at: [address] [id number] Glass Blowing Instructor: Marbella Scales MD, Phone: [phone] Performing Lab: see note [facility] LAB TESTING Reviewed date:11/22/2024 09:48:23 PM Interpretation: Performing Lab: Notes/Report: [id number] Vitamin B7 [facility] , Miscellaneous Test COMMENT . Test Ordered: [id number] Vitamin B7 Vitamin B7 0.51 ng/mL Reference Range: 0.05-0.83 This test was developed and its performance characteristics determined by [facility]. It has not been cleared or approved by the Food and Drug Administration. Performed at: [address] [id number] Glass Blowing Instructor: Marbella Scales MD, Phone: [phone] Performed at: [place] [id number] [place], [place] [id number] Glass Blowing Instructor: Checo Judge PhD, Phone: [phone] Performing Lab: see note [facility] CBC AUTO DIFF Reviewed date:05/17/2025 03:14:19 PM Interpretation: Performing Lab: Notes/Report: [facility] , White Blood Count 9.5 4.0-11.0 10 3/uL Red Blood Count 4.32 4.20-5.40 10 6/uL Hemoglobin 14.0 12.0-16.0 g/dL Hematocrit 40.8 36.0-48.0 % Mean Corpuscular Volume 94.4 81.0-99.0 fL Mean Corpuscular Hemoglobin 32.4 26.7-34.0 pg Mean Corpuscular HGB Conc 34.3 29.9-35.2 g/dL Red Cell Distribution Width 14.2 11.0-15.0 % Platelet Count 246 150-450 10 3/uL Mean Platelet Volume 9.6 9.5-13.5 fL Neutrophils Percent Auto 62.2 43.0-75.0 % Lymphocytes Percent Auto 26.3 20.5-60.0 % Monocytes Percent Auto 9.5 1.7-12.0 % Eosinophils Percent Auto 0.6 0.9-7.0 % Basophils Percent Auto 0.8 0.2-2.0 % Immature Granulocytes Pct Auto 0.6 0.0-0.5 % Neutrophils Absolute Auto 5.9 1.4-6.5 10 3/uL Lymphocytes Absolute Auto 2.5 1.2-3.8 10 3/uL Monocytes Absolute Auto 0.9 0.3-0.8 10 3/uL Eosinophils Absolute Auto 0.1 0.0-0.7 10 3/uL Basophils Absolute Auto 0.1 0.0-0.1 10 3/uL Immature Granulocytes Abs Auto 0.06 0.00-0.03 10 3/uL Performing Lab: see note ML - [facility] FREE T3 Reviewed date:05/17/2025 03:14:19 PM Interpretation: Performing Lab: Notes/Report: [facility] , Free T3 1.01 2.18-3.98 pg/mL Performing Lab: see note ML - [facility] LB PROF 14(COMP METB) Reviewed date:05/17/2025 03:14:19 PM Interpretation: Performing Lab: Notes/Report: [facility] , Sodium 135 136-145 mmol/L Potassium 4.1 3.5-5.1 mmol/L Chloride 97 98-107 mmol/L Carbon Dioxide 28.7 21.0-32.0 mmol/L Anion Gap 13.4 Glucose 79 74-106 mg/dL Blood Urea Nitrogen 12.0 7.0-18.0 mg/dL Creatinine 0.86 0.55-1.02 mg/dL Estimated GFR ( Jeanette >60 >=60 mL/mi n/1.73m 2 Estimated GFR (Non- Angelic >60 >=60 mL/mi n/1.73m 2 BUN Creatinine Ratio 14.0 Calcium 9.3 8.5-10.1 mg/dL Bilirubin Total 0.4 0.2-1.0 mg/dL Aspartate Amino Transferase 32 15-37 U/L Alanine Aminotransferase 122 14-59 U/L Alkaline Phosphatase 155 46-116 U/L Total Protein 7.5 6.4-8.2 g/dL Albumin Level 3.7 3.4-5.0 g/dL Globulin 3.8 Albumin Globulin Ratio 1.0 Performing Lab: see note ML - [facility] LB T4 Reviewed date:05/17/2025 03:14:19 PM Interpretation: Performing Lab: Notes/Report: [facility] , T4 Thyroxine 8.30 4.80-13.90 ug/dL Performing Lab: see note - [facility] LB TSH Reviewed date:05/17/2025 03:14:19 PM Interpretation: Performing Lab: Notes/Report: [facility] , Thyroid Stimulating Hormone 3.330 0.358-3.740 u IU/mL Performing Lab: see note - [facility] LB Vitamin B12 Reviewed date:11/10/2024 12:57:11 PM Interpretation: Performing Lab: Notes/Report: [facility] , Vitamin B12 143 881-3883 pg/mL Performed at: [facility] [address] [id number] Glass Blowing Instructor: Checo Judge PhD, Phone: [phone] Performing Lab: see note [facility] LB TSH Reviewed date:11/10/2024 12:59:04 PM Interpretation: Performing Lab: Notes/Report: [facility] , Thyroid Stimulating Hormone 0.900 0.358-3.740 u IU/mL Performing Lab: see note [facility] LB T4 Reviewed date:11/10/2024 12:59:04 PM Interpretation: Performing Lab: Notes/Report: [facility] , T4 Thyroxine 6.70 4.80-13.90 ug/dL Performing Lab: see note ML - [facility] PROF 14(COMP METB) Reviewed date:11/10/2024 12:59:04 PM Interpretation: Performing Lab: Notes/Report: [facility] , Sodium 137 136-145 mmol/L Potassium 3.9 3.5-5.1 mmol/L Chloride 99 98-107 mmol/L Carbon Dioxide 29.9 21.0-32.0 mmol/L Anion Gap 12.0 Glucose 141 74-106 mg/dL Blood Urea Nitrogen 15.0 7.0-18.0 mg/dL Creatinine 1.02 0.55-1.02 mg/dL Estimated GFR ( Jeanette >60 >=60 mL/mi n/1.73m 2 Estimated GFR (Non- Angelic 55 >=60 mL/mi n/1.73m 2 BUN Creatinine Ratio 14.7 Calcium 9.3 8.5-10.1 mg/dL Bilirubin Total 0.3 0.2-1.0 mg/dL Aspartate Amino Transferase 11 15-37 U/L Alanine Aminotransferase 30 14-59 U/L Alkaline Phosphatase 121 46-116 U/L Total Protein 7.0 6.4-8.2 g/dL Albumin Level 3.6 3.4-5.0 g/dL Globulin 3.4 Albumin Globulin Ratio 1.1 Performing Lab: see note ML - [facility] MAGNESIUM Reviewed date:11/10/2024 12:59:04 PM Interpretation: Performing Lab: Notes/Report: [facility] , Magnesium 1.8 1.8-2.4 mg/dL Performing Lab: see note ML - [facility] FREE T3 Reviewed date:11/10/2024 12:59:04 PM Interpretation: Performing Lab: Notes/Report: [facility] , Free T3 1.34 2.18-3.98 pg/mL Performing Lab: see note ML - [facility] CRP Reviewed date:11/10/2024 12:59:04 PM Interpretation: Performing Lab: Notes/Report: [facility] , C Reactive Protein <0.50 <=0.50 mg/dL Performing Lab: see note ML - [facility] LB LAB TESTING Reviewed date:11/22/2024 09:48:23 PM Interpretation: Performing Lab: Notes/Report: [id number] Vitamin K1 [facility] , Miscellaneous Test COMMENT . Test Ordered: [id number] Vitamin K1 Vitamin K1 0.50 ng/mL Reference Range: 0.10-2.20 This test was developed and its performance characteristics determined by [facility]. It has not been cleared or approved by the Food and Drug Administration. Performed at: - [facility] [id number] Glass Blowing Instructor: Marbella Scales MD, Phone: [phone] Performed at: - [facility] [id number] Glass Blowing Instructor: Checo Judge PhD, Phone: [phone] Performing Lab: see note - [facility] LB CA echo doppler complete Reviewed date:11/10/2024 12:55:41 PM Interpretation: Performing Lab: Notes/Report: Source Facility: [place] [address] Cardiology Report Signed Patient: MILO WOMACK MR#: [id number] : 1960 Acct:[id number] Age/Sex: 64 / F ADM Date: 11/09/24 Loc: CARD Attending Dr: SISI SCHAFER Ordering Physician: SISI SCHAFER Date of Service: 11/09/24 Procedure(s): CA echo doppler complete Accession Number(s): [id number] cc: SISI SCHAFER Patient Name: MILO WOMACK MR#: [id number] : 1960 Exam Date: 11/09/2024 Ordering Doctor: SISI SCHAFER [facility] ECHOCARDIOGRAM REPORT PROCEDURE: CA ECHO DOPPLER COMPLETE INDICATIONS: Shortness of breath, smoker, COPD COMPARISON: None. DESCRIPTION: COMPLETE ECHOCARDIOGRAM Real-time transthoracic echocardiography with 2D, M-mode, spectral and color flow Doppler performed. QUALITY: Technically difficult due to patients condition. LEFT VENTRICLE: Normal chamber size. Borderline left ventricular hypertrophy. Normal systolic function. LV EF: Normal left ventricular ejection fraction, (55%). DIASTOLIC: Diastolic function is indeterminate. ATRIAL SEPTUM: Visually appears intact. LEFT ATRIUM: Normal chamber size. RIGHT ATRIUM: Normal chamber size. RIGHT VENTRICLE: Normal chamber size. Normal right ventricular systolic function. TRICUSPID VALVE: Normal mobility and thickness. No stenosis with no regurgitation. Unable to assess right-sided pressures due to lack of measurable tricuspid regurgitation. MITRAL VALVE: Normal mobility and thickness. No evidence of mitral valve stenosis. Mild mitral annular calcification. No mitral regurgitation. AORTIC VALVE: Normal trileaflet appearance. No visible sclerosis. Normal leaflet mobility. No evidence of aortic valve stenosis. No aortic regurgitation. AORTIC ROOT: Normal diameter and appearance, measuring 3.0 cm. PULMONIC VALVE: Normal thickness and mobility. No stenosis. No regurgitation. PERICARDIUM: No evidence of pericardial effusion. IVC: IVC is dilated (2.3 cm), does not collapse. PLEURA: CONCLUSION: 1. Normal left ventricular size and systolic function. LVEF is estimated at 55%. 2. Normal right ventricular size and systolic function. 3. No significant valvular dysfunction. 4. Unable to assess right-sided pressures due to lack of measurable tricuspid regurgitation. 5. No pericardial effusion. Adult Echocardiography Procedure Report Left Ventricle LVEDD (3.7 - 5.6 cm): 4.65 cm LVESD (2.2 - 4.0 cm): 2.09 cm LVIVS thickness (0.6 - 1.2 cm): 0.90 cm LVPW thickness (0.5 - 1.0 cm): 1.09 cm e': 0.07 m/s E - e': 12.66 LVOT Max Gradient: 2.04 mm[Hg] LVOT Area (cm2): 0.71 m/s Peak Velocity (LVOT): 0.71 m/s Mean Velocity (LVOT): 0.48 m/s LVOT Diameter 2.14 cm Left Atrium Left Atrium Systolic Dimension: 4.11 cm Mitral Valve MV E to A Ratio: 0.85 Mitral Valve A-Wave Peak Velocity: 1.04 m/s Mitral Valve E-Wave Peak Velocity: 0.89 m/s Right Ventricle Aorta AO Root Diam: 2.98 cm Aortic Valve AoV Area (Peak Lacho): 2.21 cm2, 2.21 cm2 AoV Area (VTI): 2.74 cm2, 2.74 cm2 Peak Velocity(Antegrade Flow): 1.16 m/s Peak Gradient(Antegrade Flow): 5.42 mm[Hg] Mean Velocity(Antegrade Flow): 0.76 m/s Mean Gradient(Antegrade Flow): 2.77 mm[Hg] Velocity Time Integral: 20.41 cm Tricuspid Valve Pulmonic Valve Mean Gradient: 1.57 mm[Hg] Mean Velocity: 0.58 m/s Peak Velocity: 0.92 m/s, 0.93 m/s Peak Gradient: 3.46 mm[Hg], 3.39 mm[Hg] Right Atrium Dictated by: Ally Patel M.D. on 11/09/2024 at 19:12 Approved by: Ally Patel M.D. 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 Reason sciatica Diagnosis 1 Sciatica (M54.30) Referral Organization [facility] Referring Provider First Name Sisi Referring Provider Last Name Hanh Referring Provider [facility] Referred Provider Nitza Simeon Referred Provider Specialty Neurology Referral Priority Routine Reason constipation etc Diagnosis 1 Constipation (K59.00 ) Referral Organization [facility] Referring Provider First Name Sisi Referring Provider Last Name Hanh Referring Provider [facility] Referred Provider Terrance Cunha Referred Provider Specialty Gastroentero logy Referral Priority Routine Diagnosis 1 Bilateral lower extr emity edema (R60.0) Referral Organization [facility] Referring Provider First Name Sisi Referring Provider Last Name Hanh Referring Provider [facility] Referred Provider Specialty Vascular Leila grace Referral Priority Routine Medications Medication SIG (Take, Route, Frequency, Duration) Notes Start Date End Date Status Ipratropium [place] 0.03 % SPRAY 2 SPRAY S INTO EACH NOSTRIL TWICE A DAY; Duration: 90 Active hydroCHLOROthiazide 25 MG 1 tablet Orall y Once a day; Duration: 90 days Active Geodon 80 MG 1 capsule with food Orally Twice a day Active Garlic Active Fluticasone Propionate 50 MCG/ACT USE 1 SPRAY IN EACH NOSTRIL ONCE A DAY; Duration: 90 Active Fish Oil Active Famotidine 40 MG 1 tablet Orally Once a day Active Albuterol Sulfate HFA 108 (90 Base) MCG/ACT 1 puff as needed Inhalation every 4 hrs; Duration: 30 days Active Albuterol Sulfate (2.5 MG/3ML) 0.083% 3 mL as needed Inhalation every 6 hrs; Duration: 7 days 05/08/2023 Active Levothyroxine Sodium 150 MCG 1 tablet in the morning on an empty stomach Orally Once a day; Duration: 90 days Active Lasix 20 MG 1 tablet Orally Once a day; Duration: 30 days 10/17/2023 Active Irbesartan 150 MG TAKE 1 TABLET BY MOUTH EVERY DAY; Duration: 90 Active Baclofen 10 MG TAKE 1 TABLET BY MOUTH TWICE A DAY NEEDED; Duration: 90 Active Trelegy Ellipta 100-62.5-25 MCG/ACT INHALE 1 PUFF BY MOUTH ONCE DAILY; Duration: 30 Active Cetirizine HCl 10 MG 1 tablet Orally Once a day; Duration: 90 days Active Singulair 10 MG 1 tablet Orally Once a day; Duration: 30 days 11/23/2024 Active Pravastatin Sodium 40 MG 1 tablet Orally Once a day Active Azithromycin 250 MG as directed Orally daily; Duration: 5 days take 2 tablets po on first day than 1 tablet po days 2-5 05/18/2025 Active Potassium Chloride ER 10 MEQ TAKE 1 TABLET BY MOUTH TWICE A DAY; Duration: 90 Active Azelastine HCl 0.05 % INSTILL 1 DROP INTO AFFECTED EYE TWICE A DAY; Duration: 84 days Active Polyethylene Glycol 3350 17 GM 1 packet mixed with 8 ounces of fluid Oral Once a day prn; Duration: 30 days Active Allopurinol 300 MG TAKE 1 TABLET BY MOUTH EVERY DAY; Duration: 90 Active Omeprazole 40 MG 1 capsule Orally BID; Duration: 30 days Active Berenice-D Allergy & Congestion 60-120 MG 1 tablet as needed Orally Twice a day; Duration: 14 days 01/29/2025 Active Nortriptyline HCl 50 MG 1 capsule Orally Once a day Active Magnesium 400 MG 1 tablet Orally Once a day Active Liothyronine Sodium 5 MCG 2 tablet on an empty stomach Orally daily; Duration: 30 days 11/13/2024 Active Ezetimibe 10 MG TAKE 1 TABLET BY MOUTH EVERY DAY; Duration: 90 Active DULoxetine HCl 20 MG 1 capsule Orally Once a day; Duration: 5 days Active CPAP Supplies - Mask and Tubing; Duration: 365 days 05/13/2024 Active traZODone HCl 50 MG TAKE 1 TABLET BY MOUTH EVERY DAY AT BEDTIME NEEDED FOR 30 DAYS; Duration: 90 days Active Cholecalciferol 50 MCG (1999 UT) 1 tablet Orally Once a day Active Tetracycline HCl 500 MG 1 capsule on an empty stomach Orally every 12 hrs; Duration: 10 day(s) 09/01/2024 Active Social History Tobacco Use: Social History [...] in quitting? Not ready to shirlene t Alcohol Screen (Audit-C) Question Answer Notes Did you have a drink containing alcohol in the p ast year? No Points 0 Interpretation Negative AUDIT-C (Standard) Question Answer Notes Did you have a drink containing alcohol in the p ast year? No Points 0 Interpretation Negative Problems Problem Type SNOMED Code ICD Code Onset Dates Problem Status W/U Status Risk Notes Problem Obstructive sleep apnea syndrome (disorder) (53004777) Obstructive sleep apnea (adult) (pediatric) (G47.33) Active confirmed Problem Hyperlipidemia (94596597) Hyperlipidemia, unspecified (E78.5) Active confirmed Problem Insomnia (875952208) Insomnia, unspecified (G47.00) Active confirmed Problem Peripheral vertigo (97189456) Other peripheral vertigo, unspecified ear (H81.399) Active confirmed Problem Seasonal allergic rhinitis (536010229) Other seasonal allergic rhinitis (J30.2) Active confirmed Problem Chronic sinusitis (36462564) Chronic sinusitis, unspecified (J32.9) Active confirmed Problem Fibromyalgia (633331030) Fibromyalgia (M79.7) Active confirmed Problem Palpitations (26621637) Palpitations (R00.2) Active confirmed Problem Impaired fasting glucose (639997454) Impaired fasting glucose (R73.01) Active confirmed Problem Fatigue (31116889) Fatigue (R53.83) Active conf irmed Problem Hyperlipidaemia (23038958) Hyperlipemia (E78.5) Active confirmed Problem Hypertension (92189998) Hypertension (I10) Active confirmed Problem Cigarette smoker (66518489) Cigarette smoker (F17.210) Active confirmed Problem Gastroesophageal reflux disease (137721128) GERD (gastroesophageal reflux disease) (K21.9) Active confirmed Problem Hypothyroidism (61679357) Hypothyroidism (E03.9) Active confirmed Problem Obesity (120937241) Obesity (E66.9) Active conf irmed Problem Arthritis (3436041) Arthritis (M19.90) Active confirmed Problem Dyspnea (153080625) Dyspnea (R06.00) Active con firmed Problem Chest pain (73051194) Chest pain of unknown etiology (R07.89) Active confirmed Problem Shoulder pain (56735903) Shoulder pain (M25.519) Active confirmed Problem Vitamin D deficiency (40672418) Vitamin D deficiency (E55.9) Active confirmed Problem Hidradenitis suppurativa (73197262) Hidradenitis suppurativa (L73.2) Active confirmed Problem Back pain (504726610) Back pain (M54.9) Active confirmed Problem Arthralgia of the pelvic region and thigh (419699792) Hip pain, right (M25.551) Active confirmed Problem Sinusitis (29217816) Sinusitis (J32.9) Active confirmed Problem Neuropathy (588803899) Neuropathy (G62.9) Active confirmed Problem Constipation (23532414) Constipation (K59.00) Active confirmed Problem Bipolar affective disorder (40841702) Bipolar affective disorder (F31.9) Active confirmed Problem Skin lesion (72704057) Skin lesion (L98.9) Active confirmed Problem Pain of left knee region (finding) (652561458076509) Knee pain, left (M25.562) Active confirmed Problem Sciatica (32685883) Sciatica (M54.30) Active co nfirmed Problem Seasonal allergic rhinitis (599499576) Seasonal allergic rhinitis (J30.2) Active confirmed Problem Pain in limb (62591562) Pain in left toe(s) (M79.675) Active confirmed Problem Sciatica (76476137) Sciatic pain , left (M54.32) Active confirmed Problem Hyperglycemia (38218269) Blood glucose elevated (R73.9) Active confirmed Problem Sciatica (04511743) Sciatica, le ft (M54.32) Active confirmed Problem Piriformis syndrome (711360848) Piriformis syndrome (G57.00) Active confirmed Problem Pain in wrist (33110808) Wrist pain, right (M25.531) Active confirmed Problem Sacroiliac joint pain (563267443) Sacroiliac joint pain (M53.3) Active confirmed Problem Acute gout (140649193) Acute gout (M10.9) Active confirmed Problem Shoulder joint pain (526703818) Pain in joint of left shoulder (M25.512) Active confirmed Problem Body mass index 40+ - severely obese (139901270) BMI 50.0-59.9, adult (Z68.43) Active confirmed Problem Sciatica (04409570) Sciatic pain , right (M54.31) Active confirmed Problem Annual wellness visit (611733458598848) Wellness examination (Z00.00) Active confirmed Problem Chronic venous insufficiency (40747897) Chronic venous insufficiency (I87.2) Active confirmed Problem Shoulder joint pain (186918514) Pain, joint, shoulder, right (M25.511) Active confirmed Problem Cardiovascular stress test abnormal (858698314) Abnormal cardiovascular stress test (R94.39) Active confirmed Problem Impingement syndrome of shoulder region (656748240) Shoulder impingement syndrome, right (M75.41) Active confirmed Problem Diabetes mellitus type 2 (24666261) Diabetes mellitus, type 2 (E11.9) Active confirmed Problem Osteoarthritis of knee (302264177) Osteoarthritis of right knee (M17.11) Active confirmed Problem Low back pain (finding) (813859677) Other low back pain (M54.59) Active confirmed Problem Noncompliance with treatment (0397573) Noncompliance (Z91.199) Active confirmed Vital Signs Heart Rate 87 /min 05/17/2025 Temperature 97.7 degrees Fahrenheit 05/17/2025 Oximetry 98 % 05/17/2025 Blood pressure diastolic 90 mm Hg 05/21/2025 Height 59 in 05/21/2025 Blood pressure systolic 150 mm Hg 05/21/2025 Weight 256.8 lbs 05/21/2025 BMI 51.86 kg/m2 05/21/2025 Procedures Procedure Date Ordered Date Performed Result Body Sit e Echocardiogram 10/21/2024 N/A Echocardiogram 05/17/2025 N/A Encounters Encounter Location Date Provider Diagnosis [facility] [address] [address] 04/13/2025 Sisi Hanh Arthritis M19.90 [facility] [address] [place] [address] 04/22/2025 Sisi Schafer Sciatica, left M54.3 2 [facility] [address] [place] [address] 05/17/2025 Sisi Schafer Hypothyroidism E03.9 and Elevated liver enzymes R74.8 [facility] [address] [place] [address] 05/21/2025 Sisi Schafer Bilateral lower extremity edema R60.0 [facility] [facility] [address] [place] [address] 05/24/2025 Sisi Schafer [facility] [address] [place] [address] 12/29/2024 Sisi Schafer [facility] [address] [place] [address] 01/12/2025 Ramsey Sanony [facility] [address] [place] [address] 02/03/2025 Sisi Schafer [facility] [address] [place] [address] 04/02/2025 Sisi Schafer Urinary frequency R3 5.0 [facility] [address] [place] [address] 04/08/2025 Sisi Schafer [facility] [address] [place] [address] 04/12/2025 Sisi Schafer Loose stools R19.5 [facility] [address] [place] [address] 10/21/2024 Sisi Schafer [facility] [address] [place] [address] 10/28/2024 Sisi Schafer Acute bronchitis, unspecified organism J20.9 [facility] [address] [place] [address] 11/10/2024 Sisi Schafer [facility] [address] [facility] [place] [address] 11/12/2024 Sisi Schafer [facility] [address] [facility] [place] [address] 11/13/2024 Sisi Schafer Vitamin D deficiency E55.9 ; Hypothyroidism E03.9 and Wellness examination Z00.00 [facility] [address] [facility] [place] [address] 11/27/2024 Sisi Schafer [facility] [address] [facility] [place] [address] 06/05/2024 Sisi Schafer Muscle ache M79.10 [place] [address] [facility] [place] [address] 06/25/2024 Sisi Schafer Screening for osteoporosis Z13.820 [place] [address] [facility] [place] [address] 07/02/2024 Sisi Schafer [place] [address] [place] [address] 10/19/2024 Sisi Schafer Acute bronchitis, unspecified organism J20.9 [place] [address] [facility] [place] [address] 05/17/2025 Sisi Schafer Lower extremity jacki a R60.0 and Bipolar affective disorder F31.9 [place] [address] [place] [place] [address] 06/24/2024 Sisi Schafer Sciatica M54.30 and Back pain M54.9 [place] [address] [facility] [place] [address] 07/21/2024 Sisi Schafer Bronchitis J40 [place] [address] [place] [facility] [place] [address] 08/26/2024 Sisi Schafer Sinusitis J32.9 ; Wellness examination Z00.00 and Hypertension I10 [facility] [address] [facility] [place] [address] 09/01/2024 Sisi Schafer Sciatica M54.30 ; Bronchitis J40 and Hidradenitis suppurativa L73.2 [place] [address] [facility] [place] [address] 09/21/2024 Ramsey Silva Acute bronchitis, unspecified organism J20.9 [facility] [address] [facility] [place] [address] 04/12/2025 Sisi Hanh Arthritis M19.90 and Constipation K59.00 [facility] [address] [place] [address] 06/25/2024 Ramsey Silva Encounter for [employer] annual wellness exam Z00.00 [facility] [address] [facility] [place] [address] 04/02/2025 Sisibecka Schafer Lower abdominal pain R10.30 [facility] [address] [place] [facility] [place] [address] 05/21/2025 Sisi Schafer Chronic venous insufficiency I87.2 [facility] [address] [place] [address] 10/21/2024 Sisi Schafer Fatigue R53.83 ; Richard ma R60.9 and Shortness of breath R06.02 [facility] [address] [place] [address] 11/23/2024 Sisibecka Schafer Chronic venous insufficiency I87.2 ; Other seasonal allergic rhinitis J30.2 and Sciatica M54.30 [facility] [address] [place] [address] 01/29/2025 Sisi Schafer Sciatica M54.30 ; Hidradenitis suppurativa L73.2 ; Other seasonal allergic rhinitis J30.2 and Fibromyalgia M79.7 [facility] [address] [facility] [place] [address] 03/10/2025 Sisibecka Schafer Sciatica, left M54.3 2 Assessments Encounter Date Diagnosis (ICD Code) Assessment Notes Treatment Notes Treatment Clinical Notes Section Notes 06/25/2024 Encounter for Medicare annual wellness exam (ICD-10 - Z00.00) 06/24/2024 Sciatica (ICD-10 - M54.30) fu as needed 06/24/2024 Back pain (ICD-10 - M54.9) left side under shoulder blade try chiro next discussed PT , pain man, imaging 07/21/2024 Bronchitis (ICD-10 - J40) defers flu, covid testing monitor pulse ox, to ER if needed 08/26/2024 Sinusitis (ICD-10 - J32.9) 09/01/2024 Sciatica (ICD-10 - M54.30) refusing referrals PT, pain man or imaging at this time 09/01/2024 Bronchitis (ICD-10 - J40) 09/21/2024 Acute bronchitis, unspecified organism (ICD-10 - J20.9) Rest and drink more liquids, especially water. You may use a humidifier or vaporizer to help keep the drainage moist. Gewp-syq-oiykjtq Nasal Saline may help the stuffy and runny nose. Use Ibuprofen and or Tylenol as needed for fever, chills, body aches or pain. Children 5 years old should not be given ppsr-umo-cgncchw cough and cold medications such as guaifenesin and dextromethorphan. If you're over age 5, you may try hucx-gtr-tnyswqh cold medications such as guaifenesin and dextromethorphan, or multi-symptom cold reliever such as Dayquil to help reduce the symptoms. Antibiotics have been prescribed. You should take these until completed and follow the directions. Antibiotics can sometimes cause upset stomach, and in rare cases, serious allergic reactions or serious gastrointestinal problems. If you start having severe abdominal pain, severe vomiting, or bloody diarrhea, you should be reevaluated by your physician or urgent care immediately. Follow up with your Primary Care Provider or return to clinic if symptoms do not improve within 3-5 days. If you develop severe symptoms such as shortness of breath, repeated vomiting, coughing up blood, or chest pain you should go to the emergency room or call 911 10/21/2024 Fatigue (ICD-10 - R53.83) pt checking with sleep center about changing to mask echo had recent stress test recommend getting labs drawn that were ordered 10/21/2024 Edema (ICD-10 - R60.9) 01/29/2025 Sciatica (ICD-10 - M54.30) 01/29/2025 Hidradenitis suppurativa (ICD-10 - L73.2) 05/21/2025 Chronic venous insufficiency (ICD-10 - I87.2) has gained wt increased sedentary lately wasnt taking meds increase lasix dose to 40 mg over weekend, dont skip HCTZ limit salt, elevate legs, discussed michelle jay, has some, cant get on vein clinic referral pending echo 06/05/2024 Muscle ache (ICD-10 - M79.10) 06/25/2024 Screening for osteoporosis (ICD-10 - Z13.820) 10/19/2024 Acute bronchitis, unspecified organism (ICD-10 - J20.9) 10/28/2024 Acute bronchitis, unspecified organism (ICD-10 - J20.9) 11/13/2024 Vitamin D deficiency (ICD-10 - E55.9) 11/13/2024 Hypothyroidism (ICD-10 - E03.9) 03/10/2025 Sciatica, left (ICD-10 - M54.32) flared up last week unable to make it into PT due to pain Kenalog 80 steroid taper fu with neurosurg considering pain man referral, let office know 04/02/2025 Lower abdominal pain (ICD-10 - R10.30) 04/12/2025 Arthritis (ICD-10 - M19.90) 04/12/2025 Constipation (ICD-10 - K59.00) continue miralax requesting referral to different GI for consult 05/17/2025 Lower extremity edema (ICD-10 - R60.0) double lasix rest of week, fu if not improving work on diet, increase activity as tolerated stopped celebrex- contributing has gained 30 lbs last year, some of water wt 04/02/2025 Urinary frequency (ICD-10 - R35.0) 04/12/2025 Loose stools (ICD-10 - R19.5) 04/13/2025 Arthritis (ICD-10 - M19.90) 04/22/2025 Sciatica, left (ICD-10 - M54.32) 05/17/2025 Hypothyroidism (ICD-10 - E03.9) 05/17/2025 Elevated liver enzymes (ICD-10 - R74.8) 05/21/2025 Bilateral lower extremity edema (ICD-10 - R60.0) 11/23/2024 Chronic venous insufficiency (ICD-10 - I87.2) wt loss needed recent echo and US legs looked ok add lasix daily 11/23/2024 Other seasonal allergic rhinitis (ICD-10 - J30.2) 05/17/2025 Bipolar affective disorder (ICD-10 - F31.9) recent flare fu with psych as scheduled 01/29/2025 Other seasonal allergic rhinitis (ICD-10 - J30.2) 10/21/2024 Shortness of breath (ICD-10 - R06.02) try taking albuterol before gets out of bed in am discussed smoking cessation cant tolerate wellbutrin or chantix did not get chest xray , encouraged to get done 09/01/2024 Hidradenitis suppurativa (ICD-10 - L73.2) 08/26/2024 Wellness examination (ICD-10 - Z00.00) requesting multiple labs 08/26/2024 Hypertension (ICD-10 - I10) encouraged medication compliance BP elevated, did not take meds today 01/29/2025 Fibromyalgia (ICD-10 - M79.7) doesnt think is problem weaning self off cymbalta 11/13/2024 Wellness examination (ICD-10 - Z00.00) 11/23/2024 Sciatica (ICD-10 - M54.30) requesting referral to [facility]- injections? has seen pain man in past 08/26/2024 Other reschedule swal low study, fu GI Plan Of Treatment Pending Test Test Name Order Date CMP (COMPLETE METABOLIC PANEL) UA (URINALYSIS, COMPLETE) 12/18/2023 UA (URINALYSIS, COMPLETE) 05/08/2023 UA (URINALYSIS, COMPLETE) 08/15/2023 UA (URINALYSIS, COMPLETE) 10/17/2023 UA (URINALYSIS, COMPLETE) 04/02/2025 CULTURE, STOOL 04/12/2025 CULTURE, URINE w SENSITIVITY 12/18/2023 HEMOGLOBIN A1C (GLYCO) 10/17/2023 HEMOGLOBIN A1C (GLYCO) 08/26/2024 IRON, TOTAL 10/17/2023 LIPID PANEL (CHOL/TRIG/HDL/LDL) 10/17/19 24 CBC WITH DIFF 10/17/2023 VITAMIN D, 25 LEVEL (TOTAL) 10/17/2023 Echocardiogram 10/21/2024 Echocardiogram 05/17/2025 URINE CULTURE 10/17/2023 URINE CULTURE 08/15/2023 URINE CULTURE 05/08/2023 COPPER 08/26/2024 VITAMIN B6 08/26/2024 Insulin Level 10/17/2023 VITAMIN B2 08/26/2024 C DIFF TOX PCR STOOL 04/12/2025 CMP - Comprehensive Metabolic Panel 03/2025 STOOL OCCULT BLOOD 10/17/2023 CALCIUM 08/26/2024 CRP 08/26/2024 CULTURE URINE 04/02/2025 FOLATE 08/26/2024 IRON 08/26/2024 LIPID PROFILE 11/13/2024 MAGNESIUM 08/26/2024 VITAMIN B12 08/26/2024 CT SINUSES WO CON 04/19/2023 US DAFNE DOP LEG BELÉN 10/21/2024 THYROID PANEL (T4/TSH/FREE T3) 5 THYROID PANEL (T4/TSH/FREE T3) 5 THYROID PANEL (T4/TSH/FREE T3) 5 THYROID PANEL (T4/TSH/FREE T3) 4 THYROID PANEL (T4/TSH/FREE T3) 5 XR chest 2V 07/21/2024 VITAMIN K 08/26/2024 DEXA BONE DENSITY 06/25/2024 Vitamin D 08/26/2024 US abdomen limited 05/17/2025 VITAMIN B7 (BIOTIN) 08/26/2024 CMP (COMP MET VINSON) w/eGFR CKD-EPI 2024 CBC WITH DIFF 05/17/2025 Insurance Providers Payer Name Payer Address Payer Phone Subscriber Number Group Number Insured Name Patient Relationship to Insured Coverage Start Date Coverage End Date [place] [address] [place] [place] [address] [id number] Milo Womack Self - patient is the insured [place] 2ND INS [address] [place], [place] [id number] Milo Womack Self - patient is the insured Medications Administered Medication Instructions Date of Administration Dosage Notes Kenalog-40 12/18/2023 60 mg Ketorolac Tromethamine 12/18/2023 60 mg Ketorolac Tromethamine 06/24/2024 60 mg Ketorolac Tromethamine 09/01/2024 60 mg Triamcinolone 40 mg/ml 06/24/2024 80 mg Triamcinolone 40 mg/ml 09/01/2024 80 mg Triamcinolone 40 mg/ml 01/29/2025 80 mg Triamcinolone 40 mg/ml 03/10/2025 80 mg Medical (General) History Medical History History ICD Code Ear pain, right H92.01 Acute bronchitis J20.9 Pneumonia J18.9 BMI 50.0-59.9, adult Z68.43 Over weight E66.3 Other low back pain M54.59 Impacted cerumen, bilateral H61.23 Obesity E66.9 Hip pain, right M25.551 Other peripheral vertigo, unspecified ea r H81.399 Abnormal cardiovascular stress test R94. 39 Palpitations R00.2 Chest pain of unknown etiology R07.89 Pain in left toe(s) M79.675 Onychomycosis B35.1 Pain in right toe(s) M79.674 Arthritis M19.90 COVID-19 virus infection U07.1 Sciatic pain, left M54.32 Other cough R05.8 Sinusitis J32.9 Knee pain, left M25.562 Wellness examination Z00.00 Skin lesion L98.9 Shoulder impingement syndrome, right M75 .41 Complete rotator cuff tear o r rupture of right shoulder, not specified as traumatic M75.121 Diabetes mellitus, type 2 E11.9 Sciatic pain, right M54.31 Fatigue R53.83 Hidradenitis suppurativa L73.2 Seasonal allergic rhinitis J30.2 BMI 50.0-59.9, adult Z68.43 Vertigo R42 Blood glucose elevated R73.9 Pain, joint, shoulder, right M25.511 Osteoarthritis of right knee M17.11 Acute gout M10.9 Vitamin D deficiency E55.9 Wrist pain, right M25.531 Sacroiliac joint pain M53.3 Pain in joint of left shoulder M25.512 Osteoarthritis M19.90 Chronic venous insufficiency I87.2 Back pain M54.9 Shoulder pain M25.519 Dyspnea R06.00 Candidiasis, unspecified B37.9 Impaired fasting glucose R73.01 Hypothyroidism E03.9 Weight gain R63.5 Hyperlipemia E78.5 Cigarette smoker F17.210 Obstructive sleep apnea (adult) (pediatr ic) G47.33 GERD (gastroesophageal reflux disease) K 21.9 URI (upper respiratory infection) J06.9 Seborrheic dermatitis L21.9 Hypertension I10 Bipolar affective disorder F31.9 Surgical History Surgery Date(Month/Year) Uterus Removal C Section Right- Knee Replacement Left- Middle Digit Hospitalization History Reason Date(Month/Year) see above
--- OUTSIDE RECORDS SUMMARY | 2025-06-02 10:55 | XMS_ITS | Encounter Summary ---
Author Organization [facility] Address [address] [place] [address] Care Team Providers Care Medical Assembly Name Role Phone Sisi Schafer MD Unavailable [phone] Sisi Schafer MD Unavailable [phone] Sisi Schafer MD Unavailable [phone] Encounter Details Date Type Department Care Team (Late st Contact Info) Description 12/21/2024 Orders Only [facility] [address] [place] [address] Unallocated, Noms Provider, [address] [place], [place] [id number] Social History Tobacco Use Types Packs/Day Years [...] as of this encounter Plan of Treatment Not on file documented as of this encounter Procedures Procedure [...] on filedocumented in this encounter Care Teams Medical Assembly Relationship Specialty Start Date End Date Sisi Schafer MD [address] [place] [address] Referring Physician Family Medicine 02/07/23 12/23/24 Sisi Schafer MD [address] [place] [address] Referring Physician Family Medicine 12/24/24 12/24/24 Sisi Schafer MD [address] [place] [address] Primary Care Provider Family Medicine 12/24/24 documented as of this encounter
--- OUTSIDE RECORDS SUMMARY | 2025-06-02 10:55 | XMS_ITS | Patient Health Record ---
Author Organization [facility] Address [address] [place] [address] Care Team Providers Care Hedis Abstractor Name Role Phone Elvis Sarah Primary Care Provider [phone] Dr. Lorenzo Mehta Unavailable [phone] Reason For Referral No Information Encounters Encounter Location Date Provider Diagnosis [facility] [address] [place] [address] 10/26/2024 Lorenzo Hayes Other dental procedu re status Z98.818 [facility] [address] [place] [address] 12/04/2024 Lorenzo Hayes [place] [place] [address] 09/29/2024 Lorenzo Hayes Encounter for dental examination and cleaning with abnormal findings Z01.21 [facility] [place] [address] 10/09/2024 Lorenzo Hayes [facility] [place] [address] 06/23/2024 Lorenzo Hayes [place] [address] [place] [address] 08/20/2024 Lorenzo Hayes [place] [address] [place] [address] 09/29/2024 Lorenzo Hayes Complete loss of teeth, unspecified cause, class I K08.101 Assessments Encounter Date Diagnosis (ICD Code) Assessment Notes Treatment Notes Treatment Clinical Notes Section Notes 10/26/2024 Other dental procedure status (ICD-10 - Z98.818) 09/29/2024 Complete loss of teeth, unspecified cause, class I (ICD-10 - K08.101) 09/29/2024 Encounter for dental examination and cleaning with abnormal findings (ICD-10 - Z01.21) Plan Of Treatment No Information Insurance Providers Payer Name Payer Address Payer Phone Subscriber Number Group Number Insured Name Patient Relationship to Insured Coverage Start Date Coverage End Date [place] [address] [place] [phone] [id number] AISHWARYA WOMACK Self - patient is the insured 4
--- OUTSIDE RECORDS SUMMARY | 2025-06-02 10:55 | XMS_ITS | Clinical Summary ---
Author Organization [facility] Address [address] [place] [address] Care Team Providers Care Cavalry Scout Name Role Phone Sisi Schafer MD Unavailable [phone] Allergies Active Allergy Reactions Criticality Noted [...] Encounters Date Type Department Care Team Description 05/18/2025 Telephone [facility] [address] [facility] [address] [place] [address] Delroy Felix PTA 05/05/2025 12:00 PM EDT Treatment [facility] [address] [facility] [address] [place] [address] Delroy Felix PTA Spondylosis without myelopathy or radiculopathy, lumbosacral region (Primary Dx); Arthritis of lumbar spine; Sedentary lifestyle 05/05/2025 Bamboo flowsheet [facility] [address] [facility] [address] [place] [address] Delroy Felix PTA 05/05/2025 Travel 04/30/2025 2:00 PM EDT Treatment [facility] [address] [facility] [address] [place] [address] Delroy Felix, PLANNING ADVISOR Spondylosis without myelopathy or radiculopathy, lumbosacral region (Primary Dx); Arthritis of lumbar spine; Sedentary lifestyle 04/30/2025 Bamboo flowsheet [facility] [address] [facility] [address] [place] [address] Isidro Delroy, PLANNING ADVISOR 04/30/2025 Travel 04/26/2025 11:00 AM EDT Treatment [facility] [address] [facility] [address] [place] [address] Isidro Delroy, PLANNING ADVISOR Spondylosis without myelopathy or radiculopathy, lumbosacral region (Primary Dx); Arthritis of lumbar spine; Sedentary lifestyle 04/26/2025 Bamboo flowsheet [facility] [address] [facility] [address] [place] [address] Delroy Felix, PLANNING ADVISOR 04/26/2025 Travel 04/23/2025 11:00 AM EDT Evaluation [facility] [address] [facility] [address] [place] [address] Leny Chacon, PT Spondylosis without myelopathy or radiculopathy, lumbosacral region (Primary Dx) 04/23/2025 Plan of Care Documentation [facility] [address] [facility] [address] [place] [address] 04/23/2025 Bamboo flowsheet [facility] [address] [facility] [address] [place] [address] Leny Chacon, PT 04/23/2025 Travel from Last [...] 01/06/2025 9:15 AM EDT Plan of Treatment Health Maintenance Due Date Last Done Comments CT Colonography 1961 Colonoscopy 1961 Colorectal Cancer Screening 1961 FIT-DNA 1961 FIT 1961 FOBT 1961 Sigmoidoscopy 1961 Pap Smear 1982 Cervical Cancer Screening 1991 HPV/Cotest 1991 Mammogram 2001 Influenza Vaccine (#1) 2025 4, 06/22/2020, 05/19/2020, Additional history exists Insurance MEDICARE [place] Care Teams Cavalry Scout Relationship Specialty Start Date End Date Sisi Schafer MD [address] [place] [id number] Primary Care Provider Family Medicine 12/24/24
--- OUTSIDE RECORDS SUMMARY | 2025-06-02 10:55 | XMS_ITS | Encounter Summary ---
Author Organization [facility] Address [address] [place] [address] Phone Care Team Providers Care Log Yard Manager Name Role Phone Sisi Schafer Primary Care Provider Encounter Details Date Type Department Care Team (Late st Contact Info) Description 06/24/2022 Orders Only [facility] [address] [place] [address] Conversion, Onbase Social History Tobacco Use Types [...] on filedocumented in this encounter Care Teams Log Yard Manager Relationship Specialty Start Date End Date Sisi Schafer APRN-CNP [address] [place] [address] PCP - General 07/10/22 documented as of this encounter
--- OUTSIDE RECORDS SUMMARY | 2025-06-02 10:55 | XMS_ITS | Encounter Summary ---
Author Organization [facility] Address [address] [place] [address] Care Team Providers Care National Account Director Name Role Phone Sisi Schafer MD Unavailable [phone] Reason for Referral * Consultation (Routine) - Closed Specialty Diagnoses / Procedures Referred By Contac t Referred To Contact Neurosurgery Diagnoses Degeneration of intervertebral disc of lumbar region with discogenic back pain and lower extremity pain Brigitte Quiñonez NP Braun, Dale, MD [address] [place] [address], [address] [place] [address] Phone: tel: fax: Referral ID Status Reason Start Date Expiration Date V isits Requested Visits Authorized [id number] Closed Consult and Treat 01/07/2025 07/06/2025 1 1 Reason for Visit * Reason Onset Date Comments Wants Referral to Neurosurgery 01/07/2025 Encounter Details Date Type Department Care Team (Late st Contact Info) Description 01/07/2025 Telephone [facility] [address] [place] [phone] Tay Chery ARRT Wants Referral to [...] documented in this encounter Plan of Treatment Scheduled Referrals Name Type Priority Associated Diagnoses [...] Primary documented in this encounter Care Teams National Account Director Relationship Specialty Start Date End Date Sisi Schafer MD [address] [place] [address] Primary Care Provider Family Medicine 12/24/24 documented as of this encounter
--- OUTSIDE RECORDS SUMMARY | 2025-06-02 11:07 | XMS_ITS | CCD ---
Author Organization [facility] Care Team Providers Care Net Developer Consultant Name Role Phone Sisi Saravia Unavailable Unavailable Unavailable Nahid Landry Unavailable Nimco Lawson Unavailable Katina Padilla Unavailable Osvaldo Roberts II Unavailable [phone] IDALMIS Saravia Primary Care Provider MAIKEL Orosco Attending Provider [phone] MD Osvaldo Roberts II Attending Provider [phone] IDALMIS Saravia Primary Care Provider [phone] MAIKEL Orosco Attending Provider MD Luis Miguel Garibay Attending Provider [phone] Carol Avilez Unavailable IDALMIS Saravia Primary Care Provider MD Osvaldo Roberts II Attending Provider MD Luis Miguel Garibay Attending Provider MAIKEL Orosco Attending Provider MAIKEL Quintanilla Emergency Provider MD Piper Tate Admit Provider [phone] MD Piper Tate Attending Provider Sisi Saravia Aliza Referring Unav ailable Dr. Noman Henriquez Attending Unavaila ble Dr. Noman Henriquez Referring Unavaila ble Traboulssi, Dr. Bernardo Attending Unavaila ble Екатеринаi, Dr. Bernardo Referring Unavaila ble Traboulssi, Dr. Bernardo Attending Unavaila ble RANI, SISI Admitting Unavailable RANI, SISI Attending Unavailable RANI, SISI Primary Care Unavailable RANI, SISI Consulting Unavailable SONJA, DR ROJAS Admitting Unavailable HOY, DR ROJAS Attending Unavailable RANI, SISI Primary Care Unavailable HOY, DR ROJAS Consulting Unavailable ZIEBER, DR TIMOTHY Bedolla Consulting Unavailable RANI, SISI Admitting Unavailable RANI, SISI Attending Unavailable RANI, SISI Primary Care Unavailable RANI, SISI Consulting Unavailable Rani, BURR SANDER-C Sisi Isabella Primary Care Provider [phone] MAIKEL Orosco Attending Provider IDALMIS Saravia Sisi Isabella Attending Provider [phone] Fransisco Kemp Unavailable Rick Alberto Unavailable Jet Bansal Unavailable IDALMIS Saravia Sisi Isabella Primary Care Provider MAIKEL Orosco Attending Provider MD Jet Bansal Attending Provider [phone] IDALMIS Saravia Sisi Isabella Primary Care Provider Sisi Saravia MD Unavailable Unallocated, Noms Provider Primary Care Provider IDALMIS Saravia Sisi Isabella Primary Care Provider [phone] MD Jesu Velazquez Attending Provider [phone] IDALMIS Saravia Sisi Isabella Primary Care Provider [phone] MD Jet Bansal Attending Provider [phone] BRITTANEY Kenny Emergency Provider [phone] MD Jesu Velazquez Attending Provider [phone] IDALMIS Saravia Sisi Isabella Primary Care Provider [phone] MD Jet Bansal Attending Provider IDALMIS Saravia Sisi Isabella Primary Care Provider MD Jesu Velazquez Attending Provider [phone] MD Osvaldo Roberts II Attending Provider IDALMIS Saravia Sisi Isabella Primary Care Provider [phone] MD Jesu Velazquez Attending Provider [phone] IDALMIS Saravia Sisi Isabella Primary Care Provider MD Jesu Velazquez Attending Provider [phone] Connor [facility] Tabitha Llanos Emergency Provider NOMAN HENRIQUEZ Attending Unavailable RANI, SISI S Primary Care Unavailable Rnai MICROFILM CAMERA OPERATOR-SHOPPING CENTRE MANAGER, Sisi S Primary Care Provider IDALMIS Saravia Sisi Isabella Primary Care Provider MD Jesu Velazquez Attending Provider [phone] NOMAN HENRIQUEZ Referring Unavailable RANI, SISI S Primary Care Unavailable TRABOULGERALDO EDUARDOF Referring Unavailable RANI, SISI S Primary Care Unavailable TRABNOMAN THOMAS Referring Unavailable RANI, SISI S Primary Care Unavailable Unallocated , Noms Provider Primary Care Provi hubert Unallocataki HOLLINS, Noms Provider Primary Care Provi hubert Rani HOLLINS, Sisi Unavailable Rani HOLLINS, Sisi Unavailable ERIKA OROSCO Attending Unavailable UNALLOCATED, [facility] PROVIDER Referring Unava ilable ERIKA OROSCO Referring Unavailable ERIKA OROSCO Referring Unavailable ASHLEY YOUNG Attending Unavailable RANI, SISI Referring Unavailable SP WAN Attending Unavailable LENY CHACON Attending Unavailable LINDA NJ Referring Unavailable HEAVEN BECK Attending Unavailable ONDINA, LINDA Referring Unavailable HEAVEN BECK Attending Unavailable ONDINA, LINDA Referring Unavailable HEAVEN BECK Attending Unavailable LINDA NJ Referring Unavailable SISI SARAVIA Primary Care Physician Laurel Cassidy Attending Unavailable Linda Nj Admitting Unavailable Linda Nj Attending Unavailable Sisi Saravia Primary Care Unavailable Jesu Velazquez Admitting Unavailab le Jesu Velazquez Attending Unavailab Sisi Kingsley Primary Care Unavailable Allergies Allergy Classification Reported Allergen(s) Allergy Type Date of Onset Reaction(s) Facility Anti-Epileptic Agents (1 source) gabapentin Drug Allergy 4 [facility] Atenolol (1 source) Atenolol Drug Allergy 4 acid reflux [facility] pregabalin (1 source) pregabalin Drug Allergy 4 [facility] (20 sources) Amoxicillin; Translations: [amoxicillin] Drug Allergy 3 Other [facility] Work Phone: (20 sources) Atenolol Drug Allergy 4 acid reflux [facility] (20 sources) Lisinopril Allergy to substance 3 Rash [facility] (20 sources) [place] Drug Allergy 3 Rash [facility] (12 sources) gabapentin; Translations: [GABAPENTIN] Drug Allergy 4 [facility] (12 sources) pregabalin; Translations: [PREGABALIN] Drug Allergy 4 [facility] (11 sources) Doxycycline; Translations: [DOXYCYCLINE] Drug Allergy 4 Palpitations [facility] (8 sources) [place]; Translations: [LITHIUM] Drug Allergy 4 [facility] 3 Repository (2 sources) dapagliflozin; Translations: [dapagliflozin] Drug Allergy 4 [facility] (1 source) Atenolol Drug Allergy 5 [facility] Repository Medications Current Medications Medication Drug Class(es) Dates Sig (Normalized) Sig (Original) 0.25 MG, 0.5 MG Dose 3 ML semaglutide 0.68 MG/ML Pen Injector [Ozempic] (1 source) Start: 05-27-2023 Ozempic (0.25 or 0.5 MG/DOSE) 2 MG/3ML 0.25 mg for one month and then increase to 0.5 mg dose Subcutaneous weekly for 30 May, Active 3 ML semaglutide 1.34 MG/ML Pen Injector [Ozempic] (5 sources) Start: 05-03-2022 inject 1 mg by subcutaneous injection every week Ozempic (1 MG/DOSE) 4 MG/3ML 1 mg as directed Subcutaneous weekly for 30 days Apr, Active inject 1 mg by subcu taneous injection every week Ozempic (1 MG/DOSE) 4 MG/3ML INJECT 1MG SUBCUTANEOUSLY ONCE A WEEK for 30 Active 3 ML semaglutide 2.68 MG/ML Pen Injector [Ozempic] (9 sources) Start: 07-26-2022 inject 2 mg by subcutaneous injection every week Ozempic (2 MG/DOSE) 8 MG/3ML 2 mg Subcutaneous weekly for 30 days Jul, Active inject 2 mg by subcu taneous injection every week Ozempic (2 MG/DOSE) 8 MG/3ML INJECT 2 MG SUBCUTANEOUSLY ONCE A WEEK for 28 days Active inject 2 mg by subcu taneous injection every week Ozempic (2 MG/DOSE) 8 MG/3ML INJECT 2 MG SUBCUTANEOUSLY ONCE A WEEK for 28 Active acetaminophen 500 mg oral tablet (9 sources) take 1 tablet by jerry th twice daily acetaminophen (Tylenol) 500 mg tablet Take 1 tablet (500 mg) by mouth 2 times a day. Active take 1 tablet by jerry th three to four times daily Tylenol 8 Hour 650 MG Oral Tablet Extend ed Release TAKE 1 TABLET 3-4 TIMES DAILY. Quantity: 0 Refills: 0 Ordered: 25-Aug-2021 DO Active Berenice Allergy (7 sources) Berenice Allergy Active allopurinol 300 mg oral tablet (20 sources) Xanthine Oxidase Inhibitor Start: take 1 mg by mouth once daily allopurinol 300 mg Tab mg tab(s), Oral, Daily, Refills(s) 0 Start Date: 05/05/25 Status: Ordered Repeat number: 1 azelastine hydrochloride 0.5 mg/ml ophthalmic solution (20 sources) Histamine-1 Receptor Antagonist Start: azelastine 0.05% Opth Mikaela drop(s), BID, Refill(s) 0 Start Date: 05/05/25 Status: Ordered Repeat number: 1 Start: 11-12-2022 End: 07-24-2023 take 1 drop(s) into the eye(s) twice daily Azelastine Discontinued 1 DROPS EYE-BOTH Twice daily November 12, 2022 12:00am July 24, 2023 10:05am Start: 06-16-2021 Azelastine HCl - 0.05 % Ophthalmic Solution Quantity: 12 Refills: 0 Ordered: 16-Jun-2021 DO Start : 16-Jun-2021 Active take 1 drop(s) into the eye(s) twice daily azelastine (Optivar) 0.05 % ophthalmic solution INSTILL 1 DROP INTO AFFECTED EYE TWICE A DAY Active take 1 drop(s) into the eye(s) twice daily Azelastine HCl 0.05 % 1 drop into affected eye Ophthalmic Twice a day Not-Taking take 1 drop(s) into the eye(s) once daily Azelastine HCl - 0.05 % Ophthalmic Solution INSTILL 1 DROP IN BOTH EYES EVERY 12 HOURS DAILY. Quantity: 0 Refills: 0 Ordered: 10-Jul-2022 DO Active b complex 0.4 mg tablet (6 sources) take 1 tablet by mouth once daily b complex 0.4 mg tablet Take 1 tablet by mouth once daily. Active b complex vitamins capsule (20 sources) take 1 capsule by mouth once daily b complex vitamins capsule Take 1 capsule by mouth Daily Active Baclofen (2 sources) gamma-Aminobutyric Acid-ergic Agonist Start: 05-05-2025 baclofen Oral, TID, Refills(s) 0 Start Date: 05/05/25 Status: Ordered Repeat number: 1 Start: 06-15-2024 take 5 mg by mouth once daily Baclofen Active 5 MG PO Daily June 15, 2024 12:00am Celebrex (1 source) Nonsteroidal Anti-inflammatory Drug Start: 05-05-2025 Celebrex Oral, Refills(s) 0 Start Date: 05/05/25 Status: Ordered Repeat number: 1 cetirizine hydrochloride 10 mg oral capsule (20 sources) Histamine-1 Receptor Antagonist Start: 05-05-2025 cetirizine 10 mg oral capsule 10 mg = 1 cap(s), Oral, Daily, PRN for allergy symptoms, # 40 cap(s), Refills(s) 0 Start Date: 05/05/25 Status: Ordered Quantity: 40.0 Unit: cap(s) Repeat number: 1 Start: 01-02-2024 End: 06-15-2024 take 1 tablet by mouth once daily Cetirizine (Zyrtec) 10 mg tablet Discontinued 10 MG PO Daily January 02, 2024 12:00am June 15, 2024 11:05am cholecalciferol 0.025 mg oral capsule (11 sources) Vitamin D Start: 01-02-2024 take 25 ug by mouth once daily Cholecalciferol (Vitamin D3) Active 25 MCG PO Daily January 02, 2024 12:00am DULoxetine 30 mg delayed release oral capsule (1 source) Serotonin and Norepinephrine Reuptake Inhibitor Start: 06-15-2024 take 30 mg by mouth once daily Duloxetine Active 30 MG PO Daily June 15, 2024 12:00am duloxetine 20 mg Cap-DR (1 source) Start: 05-05-2025 duloxetine 20 mg Cap-DR Oral, Refills(s) 0 Start Date: 05/05/25 Status: Ordered Repeat number: 1 ezetimibe 10 mg oral tablet (19 sources) Dietary Cholesterol Absorption Inhibitor Start: 05-05-2025 take 1 mg by mouth once daily ezetimibe 10 mg Tab mg tab(s), Oral, Daily, Refills(s) 0 Start Date: 05/05/25 Status: Ordered Repeat number: 1 Start: 07-24-2023 End: 01-02-2024 take 10 mg by mouth once daily Ezetimibe Discontinued 10 MG PO Daily July 24, 2023 1:00am January 02, 2024 1:25pm Ezetimibe Active famotidine 40 mg oral tablet (20 sources) Histamine-2 Receptor Antagonist Start: 05-05-2025 take 1 mg by mouth once daily at bedtime Pepcid 40 mg Tab mg tab(s), Oral, Once a day (at bedtime), Refills(s) 0 Start Date: 05/05/25 Status: Ordered Repeat number: 1 Start: 06-15-2024 take 1 tablet by jerry th once daily at bedtime Famotidine (Pepcid) 40 mg tablet Active 40 MG PO Daily at bedtime June 15, 2024 12:00am Start: 06-24-2022 End: 11-12-2022 take 1 tablet by mouth once daily Famotidine (Pepcid) 20 mg tablet Discontinued 20 MG PO Daily June 24, 2022 12:00am November 12, 2022 10:48am famotidine (Pepc id) 10 MG tablet Take by mouth Active fexofenadine (5 sources) Histamine-1 Receptor Antagonist Berenice Active 30 actuat fluticasone furoate 0.1 mg/actuat / umeclidinium 0.0625 mg/actuat / vilanterol 0.025 mg/actuat dry powder inhaler (20 sources) Anticholinergic, Corticosteroid, beta2-Adrenergic Agonist Start: take 1 puff(s) by inhalation in the morning Trelegy Ellipta 100-62.5-25 MCG/ACT aerosol powder Inhale 1 puff in the morning. 02/08/2024 Active Start: 02-08-2024 take 1 puff(s) by in halation once daily Trelegy Ellipta 100-62.5-25 mcg blister with device Inhale 1 puff once daily. 02/08/2024 Active Start: 01-02-2024 Fluticasone-Um eclidin-Vilanter (Trelegy Ellipta) 100-62.5-25 mcg blister with device Active 1 INH INHALATION Daily January 02, 2024 12:00am Start: 11-12-2022 End: 01-02-2024 Hkbjjzgzxvl-Teppmaypu-Mnitnh er (Trelegy Ellipta) 100-62.5-25 mcg blister with device Discontinued 1 INH INHALATION Daily November 12, 2022 12:00am January 02, 2024 1:25pm Start: 11-12-2022 Fluticasone-Um eclidin-Vilanter (Trelegy Ellipta) 100-62.5-25 mcg blister with device Active 1 INH INHALATION Daily November 12, 2022 12:00am Start: 11-12-2022 Fluticasone-Um eclidin-Vilanter (Trelegy Ellipta) 100-62.5-25 mcg blister with device Active 1 INH INHALATION Daily November 11, 2022 11:00pm furosemide 20 mg oral tablet (18 sources) Loop Diuretic Start: 05-05-2025 take 1 mg by mouth once daily Lasix 20 mg Tab mg tab(s), Oral, Daily, Refills(s) 0 Start Date: 05/05/25 Status: Ordered Repeat number: 1 Garlic preparation (6 sources) Non-Standardized Food Allergenic Extract Garlic Active hydroCHLOROthiazide 25 mg oral tablet (20 sources) Thiazide Diuretic Start: 09-19-2020 take 1 mg by mouth once daily hydrochlorothiazide 25 mg Tab mg tab(s), Oral, Daily, Refills(s) 0 Start Date: 05/05/25 Status: Ordered Repeat number: 1 hydroCHLOROthiazide 12.5 mg / irbesartan 150 mg oral tablet (5 sources) Thiazide Diuretic, Angiotensin 2 Receptor Poli Start: 01-02-2024 take 1 tablet by mouth once daily Irbesartan-Hydrochloro thiazide Active 1 TAB PO Daily January 02, 2024 12:00am Ipratropium (1 source) Anticholinergic Start: 05-05-2025 ipratropium mcg, QID, Refills(s) 0 Start Date: 05/05/25 Status: Ordered Repeat number: 1 irbesartan 150 mg oral tablet (20 sources) Angiotensin 2 Receptor Poli Start: 05-05-2025 take 1 mg by mouth once daily irbesartan 150 mg Tab mg tab(s), Oral, Daily, Refills(s) 0 Start Date: 05/05/25 Status: Ordered Repeat number: 1 Start: 06-22-2022 take 150 mg by mouth twice daily Irbesartan Active 150 MG PO Twice daily June 21, 2022 11:00pm Start: 05-05-2020 End: 01-02-2024 take 150 mg by mouth once daily Irbesartan Discontinued 150 MG PO Daily June 22, 2022 12:00am January 02, 2024 1:25pm levothyroxine sodium 0.15 mg oral tablet (20 sources) l-Thyroxine Start: 05-05-2025 take 1 tablet by mouth once daily levothyroxine 150 mcg (0.15 mg) Tab mcg tab(s), Oral, Daily, Refills(s) 0 Start Date: 05/05/25 Status: Ordered Repeat number: 1 Start: 04-13-2021 take 150 ug by mouth once mesha y Levothyroxine Active 150 MCG PO Daily June 22, 2022 12:00am take 1 tablet by jerry th once daily in the morning Levothyroxine Sodium 150 MCG 1 tablet in the morning on an empty stomach Orally Once a day Active Levothyroxine So dium Active liothyronine sodium 0.005 mg oral tablet (18 sources) l-Triiodothyronine Start: 05-05-2025 take 1 ug by mouth once daily liothyronine 5 mcg Tab mcg tab(s), Oral, Daily, Refills(s) 0 Start Date: 05/05/25 Status: Ordered Repeat number: 1 take 1 tablet by mouth once mesha y liothyronine (Cytomel) 5 MCG tablet Take by mouth Daily Active Magnesium (20 sources) Start: 01-02-2024 take 250 mg by mouth once daily Magnesium Active 250 MG PO Daily January 02, 2024 12:00am MAGNESIUM PO Syed e 500 mg by mouth Active take 1 tablet by mouth in the mo rning magnesium 250 mg tablet Take 1 tablet (250 mg) by mouth early in the morning.. Active magnesium oxide 400 mg oral tablet (1 source) Start: 05-05-2025 take 1 mg by mouth once daily magnesium oxide 400 mg Tab mg tab(s), Oral, Daily, Refills(s) 0 Start Date: 05/05/25 Status: Ordered Repeat number: 1 Singulair (20 sources) Leukotriene Receptor Antagonist Start: 05-05-2025 Singulair Daily, Refills(s) 0 Start Date: 05/05/25 Status: Ordered Repeat number: 1 montelukast (Sin gulair) 10 MG tablet Take by mouth Active naproxen 500 mg delayed release oral tablet (11 sources) Nonsteroidal Anti-inflammatory Drug End: 12-23-2024 take 1 tablet by mouth in the morning naproxen (EC Naprosyn) 500 MG EC tablet Take 500 mg by mouth in the morning and 500 mg in the evening. 12/23/2024 Discontinued (Therapy completed) Nitro Sublingual 0.4 0.4mg (20 sources) Nitro Sublingual 0.4 0.4mg 1 Sublingual Every 5min x3 Active nortriptyline 50 mg oral capsule (20 sources) Tricyclic Antidepressant Start: 05-05-2025 take 1 mg by mouth three times daily nortriptyline 50 mg oral capsule mg cap(s), Oral, TID, Refills(s) 0 Start Date: 05/05/25 Status: Ordered Repeat number: 1 Start: 08-18-2020 take 50 mg by mouth at bedtime Nortriptyline Active 50 MG PO Bedtime June 22, 2022 12:00am [place]island 3 Fish Oil (6 sources) [place]island 3 Fish Oil Active omega 4-gqt-uwa-fish oil (Fish OiL) 1,200 (144-216) mg capsule (6 sources) take 1 capsule by mouth in the morning omega 4-vyl-qep-fish oil (Fish OiL) 1,200 (144-216) mg capsule Take 1 capsule (1,200 mg) by mouth early in the morning.. Active omeprazole 40 mg delayed release oral capsule (20 sources) Proton Pump Inhibitor Start: 05-05-2025 take 1 mg by mouth once daily omeprazole 40 mg Cap-DR mg cap(s), Oral, Daily, Refills(s) 0 Start Date: 05/05/25 Status: Ordered Repeat number: 1 Start: 11-12-2022 End: 12-23-2024 take 1 capsule by mouth in the morning omeprazole (PriLOSEC) [address] capsule Take 40 mg by mouth in the morning and 40 mg in the evening. 01/09/2024 12/23/2024 Discontinued (Therapy completed) Start: 05-05-2020 Omeprazole 40 MG Oral Capsule Delayed Release as needed Quantity: 0 Refills: 0 Ordered: 02-May-2021 DO Start : 05-May-2020 Active take 1 capsule by mo [facility] twice daily omeprazole (PriLOSEC) [address] capsule Take 1 capsule (40 mg) by mouth 2 times a day. Active pantoprazole 40 mg delayed release oral tablet (1 source) Proton Pump Inhibitor Start: 06-15-2024 take 40 mg by mouth once daily Pantoprazole Active 40 MG PO Daily June 15, 2024 12:00am Miralax (20 sources) Osmotic Laxative Start: 05-05-2025 take 1 g by mouth once daily MiraLax gm, Oral, Daily, Refill(s) 0 Start Date: 05/05/25 Status: Ordered Repeat number: 1 Start: 06-22-2022 End: 11-12-2022 Polyethylene Glycol 3350 (Mi ralax) 17 gram/dose Powder Discontinued 4 GM PO Daily June 22, 2022 12:00am November 12, 2022 10:49am MiraLax PRN Acti ve MiraLax Active Polyethylene Glycol 3350 (Miralax) 17 gram powder in packet (1 source) Start: 06-15-2024 Polyethylene G lycol 3350 (Miralax) 17 gram powder in packet Active 17 GM PO Daily 30 90 June 15, 2024 12:00am Potassium Chloride (20 sources) Start: 05-05-2025 potassium chlo ride Refills(s) 0 Start Date: 05/05/25 Status: Ordered Repeat number: 1 Start: 08-28-2023 End: 10-23-2023 take 10 mEq by mouth twice daily Potassium Chloride Discontinued 10 MEQ PO Twice daily August 28, 2023 1:00am October 23, 2023 9:31am Start: 08-28-2023 take 10 mEq by mouth once mesha y Potassium Chloride Active 10 MEQ PO Daily August 28, 2023 12:00am Start: 03-12-2021 End: 07-24-2023 take 10 mEq by mouth twice daily Potassium Chloride Discontinued 10 MEQ PO Twice daily November 12, 2022 12:00am July 24, 2023 10:07am take 1 capsule by [facility] in the morning potassium chloride ER (Micro-K) 10 MEQ ER capsule Take 10 mEq by mouth in the morning and 10 mEq before bedtime. Do not crush or chew. Active pravastatin sodium 40 mg oral tablet (13 sources) HMG-CoA Reductase Inhibitor Start: 05-05-2025 take 1 mg by mouth once daily pravastatin 40 mg Tab mg tab(s), Oral, Daily, Refills(s) 0 Start Date: 05/05/25 Status: Ordered Repeat number: 1 Start: 07-24-2023 End: 08-28-2023 take 40 mg by mouth once daily Pravastatin Discontinue d 40 MG PO Daily July 24, 2023 1:00am August 28, 2023 10:49am predniSONE 10 mg oral tablet (20 sources) Start: 01-06-2025 predniSONE (De ltasone) 10 MG tablet Indications: Primary osteoarthritis of left ankle Take twice daily for 5 days, then take once daily for 5 days. 15 tablet 01/06/2025 Active Start: 03-24-2024 End: 06-15-2024 take 20 mg by mouth twice daily Prednisone Discontinue d 20 MG PO Twice daily 05 23March 24, 2024 12:00am June 15, 2024 11:07am Start: 11-11-2023 End: 01-02-2024 take 40 mg by mouth once daily at mealtime Prednisone Discontinued 40 MG PO Daily November 11, 2023 12:00am January 02, 2024 1:26pm administer with food or milk Start: 06-24-2022 End: 11-12-2022 Prednisone Discontinued 40 M G PO Daily 05 23June 24, 2022 12:00am November 12, 2022 10:49am days 11-21 of therapy prednisone 20 MG as directed Orally once a day for 5 days Active 0.25 mg, 0.5 mg dose 1.5 ml semaglutide 1.34 mg/ml pen injector (5 sources) Ozempic (0.25 or 0.5 MG/DOSE) 2 MG/1.5ML 0.5 mg Subcutaneous weekly Active Ozempic (0.25 or 0.5 MG/DOSE) 2 MG/1.5ML 0.25 mg for one month and then increase to 0.5 mg dose Subcutaneous weekly for 30 days Active traZODone hydrochloride 50 mg oral tablet (20 sources) Serotonin Reuptake Inhibitor Start: 01-02-2024 take 100 mg by mouth once daily Trazodone Active 100 MG PO Daily January 02, 2024 12:00am Start: 07-24-2023 End: 10-23-2023 take 100 mg by mouth once daily at bedtime Trazodone Discontinued 100 MG PO Daily at bedtime July 24, 2023 1:00am October 23, 2023 9:31am Start: 01-07-2023 take 1 tablet by jerry th once daily traZODone (Desyrel) 50 MG tablet Take 50 mg by mouth 1 (one) time each day at the same time 01/07/2023 Active take 2 tablets by mo ut once daily at bedtime as needed for sleep traZODone (Desyrel) 50 mg tablet TAKE 2 TABLETS BY MOUTH EVERY DAY AT BEDTIME NEEDED FOR SLEEP Active Trelegy Ellipta (7 sources) Start: 05-05-2025 Trelemala Ellipt a Inhalation, Daily, Refills(s) 0 Start Date: 05/05/25 Status: Ordered Repeat number: 1 Christofer Deshpandeta Active triamcinolone acetonide 1 mg/ml topical cream (20 sources) Corticosteroid triamcinolone (Kenalog) 0.1 % cream Apply 1 application topically in the morning and 1 application before bedtime. Active Turmeric Root Extract (5 sources) Start: take 500 mg by mouth once daily Turmeric Root Extract Active 500 MG PO Daily January 02, 2024 12:00am turmeric root extract 500 mg capsule (6 sources) take 1 capsule by mouth in the morning turmeric root extract 500 mg capsule Take 1 capsule by mouth early in the morning.. Active Tylenol Arthritis Pain (20 sources) Tylenol Arthriti s Pain Prn Active Tylenol Arthriti s Pain Not-Taking Tylenol Arthriti s Pain Active Vitamin D3 (6 sources) Vitamin D3 Activ e vitamin k 0.1 mg oral tablet (14 sources) phytonadione (Vitamin K) 100 MCG tablet Take by mouth Active vitamin K2 (5 sources) Start: 01-02-20 take 180 ug by mouth once daily Vitamin K2 Active 180 MCG PO Daily January 02, 2024 12:00am vitamin K2 180 mcg capsule (6 sources) take 1 capsule by mouth in the morning vitamin K2 180 mcg capsule Take 1 capsule by mouth early in the morning.. Active ziprasidone 80 mg oral capsule (20 sources) Atypical Antipsychotic Start: 05-05-20 take 1 mg by mouth twice daily Geodon 80 mg Cap mg cap(s), Oral, BID, Refills(s) 0 Start Date: 05/05/25 Status: Ordered Repeat number: 1 Start: 07-24-2023 End: 01-02-2024 take 40 mg by mouth once daily Ziprasidone Hcl Discont inued 40 MG PO Daily July 24, 2023 1:00am January 02, 2024 1:26pm Start: 08-18-2020 End: 07-24-2023 take 20 mg by mouth once daily in the morning Ziprasidone Hcl Discontinued 20 MG PO Every morning June 22, 2022 12:00am July 24, 2023 10:08am Start: 08-18-2020 End: 01-02-2024 take 80 mg by mouth at bedtime Ziprasidone Hcl Discont inued 80 MG PO Bedtime June 22, 2022 12:00am January 02, 2024 1:26pm take 1 capsule by [facility] every twelve hours Geodon 80 MG capsule Take 80 mg by mouth every 12 (twelve) hours Active take 1 capsule by [facility] every twelve hours Ziprasidone HCl 20 MG 1 capsule with food Orally Twice a day Active Completed/Discontinued Medications Medication Drug Class(es) Dates Sig (Normalized) Sig (Original) [id number] actuat albuterol 0.09 mg/actuat metered dose inhaler (20 sources) beta2-Adrenergic Agonist Start: 06-22-2022 End: 01-02-2024 take 1 puff(s) by inhalation every four hours Albuterol Sulfate (Ventolin Hfa) 90 mcg/actuation HFA aerosol inhaler Discontinued 2 PUFF INHALATION Q4H June 22, 2022 12:00am January 02, 2024 1:16pm Start: 09-21-2020 take 1-2 puff(s) by inhalation every four to six hours as needed Albuterol Sulfate HFA 108 (90 Base) MCG/ACT Inhalation Aerosol Solution INHALE 1 TO 2 PUFFS EVERY 4 TO 6 HOURS NEEDED. Quantity: 0 Refills: 0 Ordered: 21-Sep-2020 DO Start : 21-Sep-2020 Active Start: 09-21-2020 take 1-2 puff(s) by inhalation every four to six hours as needed Albuterol Sulfate HFA 108 (90 Base) MCG/ACT Inhalation Aerosol Solution INHALE 1 TO 2 PUFFS EVERY 4 TO 6 HOURS NEEDED. Quantity: 0 Refills: 0 Ordered: 21-Sep-2020 DO Start : 21-Sep-2020 Active take 2 puff(s) by in halation every four hours for wheezing albuterol HFA 90 mcg/act inhaler Inhale 2 puffs every 4 (four) hours if needed for wheezing Active take 2 puff(s) by in halation every four hours as needed take 2 puff(s) by in halation every four hours as needed Ventolin HFA Act lubna take 2 puff(s) by in halation every four hours as needed Albuterol Sulfate HFA 108 (90 Base) MCG/ACT 2 puff as needed Inhalation every 4 hrs Active take 1 puff(s) by in halation every four hours as needed Albuterol Sulfate HFA 108 (90 Base) MCG/ACT 1 puff as needed Inhalation every 4 hrs Active take 1 puff(s) by in halation every four hours as needed Albuterol Sulfate HFA 108 (90 Base) MCG/ACT 1 puff as needed Inhalation every 4 hrs Active amoxicillin 875 mg oral tablet (5 sources) Penicillin-class Antibacterial Start: 03-20-2022 take 1 tablet by mouth every twelve hours Amoxicillin 875 MG 1 tablet Orally every 12 hrs for 7 days Mar, Not-Taking aspirin 81 mg oral tablet (20 sources) Platelet Aggregation Inhibitor, Nonsteroidal Anti-inflammatory Drug Start: 11-12-2022 End: 07-24-2023 take 81 mg by mouth once daily Aspirin Discontinued 81 MG PO Daily November 12, 2022 12:00am July 24, 2023 10:05am Start: 08-25-2021 take 1 tablet by jerry once daily Aspirin 81 MG Oral Tablet Delayed Release TAKE 1 TABLET DAILY. Quantity: 90 Refills: 3 Ordered: 10-Jul-2022 Noman Henriquez MD Start : 25-Aug-2021 Active azithromycin 500 mg oral tablet (14 sources) Macrolide Antimicrobial Start: 06-24-2022 End: 11-12-2022 take 500 mg by mouth once daily Azithromycin Discontinued 500 MG PO Daily 12 21June 24, 2022 12:00am November 12, 2022 10:42am B-Complex With Vitamin C (5 sources) Start: 01-02-2024 End: 06-15-2024 take 1 tablet by mouth once daily B-Complex With Vitamin C Discontinued 1 TAB PO Daily January 02, 2024 12:00am June 15, 2024 11:05am Start: 01-02-2024 take 1 tablet by jerry once daily B-Complex With Vitamin C Active 1 TAB PO Daily January 02, 2024 12:00am carvedilol 3.125 mg oral tablet (12 sources) alpha-Adrenergic Poli, beta-Adrenergic Poli Start: 08-25-2021 take 1 tablet by mouth twice daily at mealtime Carvedilol 3.125 MG Oral Tablet TAKE 1 TABLET TWICE DAILY WITH MEALS. Quantity: 180 Refills: 3 Ordered: 25-Aug-2021 Noman Henriquez MD Start : 25-Aug-2021 Active cefdinir 300 mg oral capsule (14 sources) Cephalosporin Antibacterial Start: 06-24-2022 End: 11-12-2022 take 300 mg by mouth twice daily Cefdinir Discontinued 300 MG PO Twice daily 05 23June 24, 2022 12:00am November 12, 2022 10:42am Ciprofloxacin / Dexamethasone (12 sources) Corticosteroid, Quinolone Antimicrobial Start: 11-12-2022 End: 07-24-2023 Ciprofloxacin-Dex amethasone Discontinued 4 DROPS OTIC Twice daily November 12, 2022 12:00am July 24, 2023 10:05am Start: 11-12-2022 End: 07-24-2023 Ciprofloxacin-Dexamethasone Discontinued 4 DROPS OTIC Twice daily November 11, 2022 11:00pm July 24, 2023 9:05am cyclobenzaprine hydrochloride 5 mg oral tablet (2 sources) Muscle Relaxant Start: 03-24-2024 End: 06-15-2024 take 5 mg by mouth three times daily Cyclobenzaprine Discontinued 5 MG PO Three times daily March 24, 2024 12:00am June 15, 2024 11:06am diclofenac sodium 75 mg delayed release oral tablet (20 sources) Nonsteroidal Anti-inflammatory Drug Start: 06-22-2022 End: 04-06-2024 take 75 mg by mouth twice daily Diclofenac Sodium Discontinued 75 MG PO Twice daily June 22, 2022 12:00am January 02, 2024 1:16pm Diclofenac 75 mg 1tabler BID Active Diclofenac 75 mg xBID Active Diclofenac Activ e empagliflozin 10 mg oral tablet (10 sources) Sodium-Glucose Cotransporter 2 Inhibitor Start: 10-23-2023 End: 01-02-2024 take 1 mg by mouth once daily Empagliflozin Discontinued MG PO Daily October 23, 2023 1:00am January 02, 2024 1:25pm FreeTextSig: daily orally; Note: Source Status: Taking; Provider: Zoë Chaudhary ( ) take 10 mg by mouth once daily J [place] 10 mg daily orally Active etodolac 500 mg oral tablet (14 sources) Nonsteroidal Anti-inflammatory Drug Start: 06-22-2022 End: 06-22-2022 Etodolac Discontinued MG TABLET June 22, 2022 12:00am June 22, 2022 5:29pm fluticasone propionate 0.05 mg/actuat metered dose nasal spray (20 sources) Corticosteroid Start: 09-02-2023 End: 06-15-2024 take 1 spray(s) nasal route once daily Fluticasone Propionate Discontinued 1 SPRAY INTRANASAL Daily October 22, 2023 1:00am June 15, 2024 11:06am FreeTextSi spray in each nostril Nasally Once a day; Note: Source Status: Taking; Start: 06-22-2022 End: 11-12-2022 Fluticasone Propionate Disco ntinued 2 SPRAY INTRANASAL Daily June 22, 2022 12:00am November 12, 2022 10:48am take 1 spray(s) nasa l route once daily Fluticasone Propionate 50 MCG/ACT 1 spray in each nostril Nasally Once a day Active take 1 spray(s) nasa l route once daily Fluticasone Propionate 50 MCG/ACT 1 spray in each nostril Nasally Once a day Active Fluticasone Propion-Salmeterol (14 sources) Corticosteroid, beta2-Adrenergic Agonist Start: 06-24-2022 End: 11-12-2022 Fluticasone Propion-Salmeterol (Advair Diskus) 250-50 mcg/dose blister with device Discontinued 1 INH INHALATION Twice daily 60 June 24, 2022 12:00am November 12, 2022 10:48am Start: 06-24-2022 End: 11-12-2022 Fluticasone Propion-Salmeter ol (Advair Diskus) 250-50 mcg/dose blister with device Discontinued 1 INH INHALATION Twice daily 60 June 23, 2022 11:00pm November 12, 2022 9:48am Start: 06-24-2022 Fluticasone Pr opion-Salmeterol (Advair Diskus) 250-50 mcg/dose blister with device Active 1 INH INHALATION Twice daily 60 June 23, 2022 11:00pm gabapentin 300 mg oral capsule (6 sources) Anti-epileptic Agent take 1 capsule by mouth every twenty-four hours Gabapentin 300 MG 1 capsule Orally Once a day Not-Taking/PRN hydrocortisone 10 mg/ml / neomycin 3.5 mg/ml / polymyxin b [id number] unt/ml otic solution (9 sources) Aminoglycoside Antibacterial, Polymyxin-class Antibacterial, Corticosteroid Start: 2021 Nzveznxb-Osblurcnt-N C 3.5-53646-7 4 drops into affected ear Otic Three times a day for 7 day(s) Mar, Not-Taking hydrOXYzine pamoate 25 mg oral capsule (20 sources) Antihistamine Start: 2022 End: 2022 take 25 mg by mouth twice daily Hydroxyzine Pamoate Discontinued 25 MG PO Twice daily November 12, 2022 12:00am July 24, 2023 10:06am Start: 08-11-2021 take 1 capsule by mo [facility] twice daily hydrOXYzine Pamoate 25 MG Oral Capsule TAKE 1 CAPSULE TWICE DAILY. Quantity: 0 Refills: 0 Ordered: 11-Aug-2021 DO Start : 11-Aug-2021 [facility] hydrOXYzine HCl 25 MG 1 tab(s) p.o. bid Active ibuprofen 600 mg oral tablet (12 sources) Nonsteroidal Anti-inflammatory Drug Start: 12-16-2020 take 1 tablet by mouth four times daily Ibuprofen 600 MG Oral Tablet TAKE 1 TABLET 4 TIMES DAILY. Quantity: 0 Refills: 0 Ordered: 19-Jul-2021 DO Start : 16-Dec-2020 Active ketoconazole 20 mg/ml topical cream (14 sources) Azole Antifungal Start: 06-22-2022 End: 11-12-2022 Ketoconazole Discontinued 1 APPLIC TOPICAL Daily June 22, 2022 12:00am November 12, 2022 10:49am lidocaine 0.05 mg/mg medicated patch (2 sources) Antiarrhythmic, Amide Local Anesthetic Start: 03-24-2024 End: 06-15-2024 apply 1 dose topically once daily Lidocaine Discontinued 1 PATCH TOPICAL Daily March 24, 2024 12:00am June 15, 2024 11:06am leave on most painful area for up to 12 hrs metFORMIN hydrochloride 500 mg oral tablet (7 sources) Biguanide Start: 10-28-2020 take 1 tablet by mouth twice daily at mealtime metFORMIN HCl - 500 MG Oral Tablet TAKE 1 TABLET TWICE DAILY WITH FOOD. Quantity: 0 Refills: 0 Ordered: 28-Oct-2020 DO Start : 28-Oct-2020 Active Multivitamin preparation (12 sources) Start: 11-12-2022 End: 10-09-2023 take 1 tablet by mouth once daily Multivitamin Discontinued 1 TAB PO Daily November 12, 2022 12:00am October 09, 2023 9:19am Start: 11-12-2022 End: 10-09-2023 take 1 tablet by mouth once daily Multivitamin Discontinued 1 TAB PO Daily November 11, 2022 11:00pm October 09, 2023 8:19am Start: 11-12-2022 take 1 tablet by jerry th once daily Multivitamin Active 1 TAB PO Daily November 11, 2022 11:00pm nabumetone 500 mg oral tablet (5 sources) Nonsteroidal Anti-inflammatory Drug Start: 01-02-2024 End: 06-15-2024 take 500 mg by mouth twice daily Nabumetone Discontinued 500 MG PO Twice daily January 02, 2024 12:00am June 15, 2024 11:06am nitroglycerin 0.4 mg sublingual tablet (3 sources) Nitrate Vasodilator Start: 07-03-2021 Nitroglycerin 0.4 MG Sublingual Tablet Sublingual PLACE 1 TABLET UNDER THE TONGUE EVERY 5 MINUTES FOR UP TO 3 DOSES NEEDED FOR CHEST PAIN.CALL 911 IF PAIN PERSISTS. Quantity: 0 Refills: 0 Ordered: 03-Jul-2021 DO Start : 03-Jul-2021 Active Ozempic (1 MG/DOSE) SOPN (1 source) Ozempic (1 MG/DO SE) SOPN INJECT 1 UNIT Weekly Quantity: 0 Refills: 0 Ordered: 10-Jul-2022 DO Active pyridostigmine bromide 30 mg oral tablet (20 sources) Start: 01-09-2024 End: 06-15-2024 take 30 mg by mouth twice daily Pyridostigmine Hen[place] Discontinued 30 MG PO Twice daily January 09, 2024 12:00am June 15, 2024 11:20am Start: 08-28-2023 End: 06-15-2024 take 30 mg by mouth three times daily Pyridostigmine [place] Discontinued 30 MG PO Three times daily August 28, 2023 10:51am June 15, 2024 11:07am Start: 11-12-2022 End: 08-28-2023 take 60 mg by mouth twice daily Pyridostigmine Henning Discontinued 60 MG PO Twice daily 60 November 12, 2022 12:00am August 28, 2023 10:51am End: 12-23-2024 pyridostigmine (Mestinon) 30 MG tablet every 8 (eight) hours. 12/23/2024 Discontinued (Therapy completed) regadenoson (Lexiscan) injection 0.4 mg (1 source) Start: 05-25-2024 End: 05-25-2024 0.4 mg, intravenous, Once, On Sat05/25/24 at 1200, For 1 dose rosuvastatin calcium 40 mg oral tablet (20 sources) HMG-CoA Reductase Inhibitor Start: 04-13-2021 End: 07-24-2023 take 40 mg by mouth once daily Rosuvastatin Discontinued 40 MG PO Daily November 12, 2022 12:00am July 24, 2023 10:09am Semaglutide (14 sources) Start: 06-22-2022 End: 07-24-2023 inject 1 mg by subcutaneous injection two times weekly Semaglutide (Ozempic) 1 mg/dose (4 mg/3 mL) pen injector Discontinued 1 MG SUBCUT Twice a Week June 22, 2022 12:00am July 24, 2023 10:07am wednesdays Start: 06-22-2022 End: 07-24-2023 inject 1 mg by subcutaneous injection two times weekly Semaglutide (Ozempic) 1 mg/dose (4 mg/3 mL) pen injector Discontinued 1 MG SUBCUT Twice a Week June 21, 2022 11:00pm July 24, 2023 9:07am wednesdays Start: 06-22-2022 inject 1 mg by subcu taneous injection two times weekly Semaglutide (Ozempic) 1 mg/dose (4 mg/3 mL) pen injector Active 1 MG SUBCUT Twice a Week June 21, 2022 11:00pm wednesdays Tc-99m tetrofosmin (Myoview) injection 30 millicurie (2 sources) Start: 05-26-2024 End: 05-26-2024 30 millicurie, intravenous, Once in imaging, Starting on Sat05/26/24 at 1232, For 1 dose, Administer 45 to 90 minutes prior to imaging unless otherwise indicated. Start: 05-25-2024 End: 05-25-2024 30 millicurie, intravenous, Once in imaging, Starting on 05/25/24 at 1155, For 1 dose, Administer 45 to 90 minutes prior to imaging unless otherwise indicated. tiotropium 0.018 mg inhalation powder (20 sources) Anticholinergic Start: 09-19-2020 Spiriva HandiH aler 18 MCG Inhalation Capsule USE DIRECTED. Quantity: 0 Refills: 0 Ordered: 19-Sep-2020 DO Start : 19-Sep-2020 Active End: 04-06-2024 take 1 capsule by inhalation once daily Spiriva HandiHaler [address] 1 capsule into inhaler and inhale 1 (one) time each day at the same time. 04/06/2024 Discontinued Spiriva HandiHal er 18 MCG 1 capsule by inhaling the contents of the capsule using the HandiHaler device Once a day Active Ubidecarenone-[place] 3-Vit E (Co Y-22-Rniemwm E-Fish Oil) 25-150-200 mg-mg-unit capsule (5 sources) Start: 01-02-2024 End: 06-15-2024 take 1 capsule by mouth once daily Ubidecarenone-[place] 3-Vit E (Co S-05-Fmnyzth E-Fish Oil) 25-150-200 mg-mg-unit capsule Discontinued 1 CAP PO Daily January 02, 2024 12:00am June 15, 2024 11:08am Start: 01-02-2024 take 1 capsule by [facility] once daily Ubidecarenone-[place] 3-Vit E (Co G-86-Iurdzrt E-Fish Oil) 25-150-200 mg-mg-unit capsule Active 1 CAP PO Daily January 02, 2024 12:00am Problems Active Problems Problem Classification Problem Date Documented Da te Episodic/Chronic Acquired foot deformities (2 sources) Acquired valgus deformity of left ankle; Translations: [Valgus deformity, not elsewhere classified, left ankle] 01-06-2025 Episodic Acute and unspecified renal failure (15 sources) Injury of kidney; Translations: [Acute kidney failure, unspecified] 06-22-2022 Episodic Cardiac dysrhythmias (12 sources) Palpitations; Translations: [Palpitations] Onset: 04-02-2024 Episodic Chronic obstructive pulmonary disease and bronchiectasis (20 sources) Chronic obstructive lung disease; Translations: [Chronic obstructive pulmonary disease, unspecified] Onset: 01-30-2022 Resolved: 05-03-2022 Chronic Diabetes mellitus with complications (20 sources) Disorder due to type 2 diabetes mellitus; Translations: [Type 2 diabetes mellitus with unspecified complications] Onset: 01-30-2022 Resolved: 05-03-2022 Chronic Diabetes mellitus without complication (12 sources) Diabetes mellitus; Translations: [Diabetes mellitus without mention of complication, type II or unspecified type, not stated as uncontrolled] Onset: 04-02-2024 Chronic Disorders of lipid metabolism (20 sources) Hyperlipidemia; Translations: [Other and unspecified hyperlipidemia] Onset: 01-30-2022 Resolved: 05-03-2022 Chronic Esophageal disorders (18 sources) Acid reflux; Translations: [Gastro-esophageal reflux disease without esophagitis] Chronic Essential hypertension (20 sources) Benign essential hypertension; Translations: [Benign essential hypertension] Onset: 01-30-2022 Resolved: 05-03-2022 Chronic Fluid and electrolyte disorders (15 sources) Acute hyponatremia; Translations: [Hypo-osmolality and hyponatremia] 06-22-2022 Episodic Nausea and vomiting (13 sources) Vomiting, unspecified; Translations: [Nausea and vomiting] Episodic Nonspecific chest pain (15 sources) Chest pain; Translations: [Chest pain, unspecified] Onset: 04-02-2024 Episodic Osteoarthritis (20 sources) Osteoarthritis of left knee joint; Translations: [Unilateral primary osteoarthritis, left knee] Onset: 04-10-2022 Resolved: 05-03-2022 Chronic Other connective tissue disease (20 sources) History of right total knee replacement; Translations: [Presence of right artificial knee joint] Chronic Other connective tissue disease (4 sources) Presence of right artificial knee joint; Translations: [Knee joint replacement] Onset: 04-10-2022 Resolved: 04-10-2022 Chronic Other connective tissue disease (5 sources) History of total knee arthroplasty; Translations: [Presence of right artificial knee joint] 01-01-2024 Chronic Other connective tissue disease (2 sources) Pain in left foot; Translations: [Pain in left foot] 12-23-2024 Episodic Other disorders of stomach and duodenum (1 source) Gastroparesis syndrome; Translations: [Gastroparesis] 06-15-2024 Episodic Other disorders of stomach and duodenum (1 source) Gastroparesis; Translations: [Gastroparesis] 06-15-2024 Episodic Other endocrine disorders (20 sources) Hypoglycemia; Translations: [Hypoglycemia, unspecified] Chronic Other endocrine disorders (4 sources) Hypoglycemia, unspecified Chronic Other gastrointestinal disorders (1 source) Irritable bowel syndrome characterized by constipation; Translations: [Irritable bowel syndrome with constipation] 06-15-2024 Chronic Other gastrointestinal disorders (1 source) Irritable bowel syndrome; Translations: [Irritable bowel syndrome without diarrhea] 06-15-2024 Chronic Other gastrointestinal disorders (1 source) Irritable bowel syndrome with constipation; Translations: [Irritable bowel syndrome] 06-15-2024 Chronic Other gastrointestinal disorders (20 sources) Constipation; Translations: [Constipation, unspecified] Episodic Other gastrointestinal disorders (6 sources) Constipation, unspecified; Translations: [Constipation, unspecified] Onset: 05-03-2022 Resolved: 05-03-2022 Episodic Other gastrointestinal disorders (20 sources) Dysphagia; Translations: [Dysphagia, unspecified] 11-12-2022 Episodic Other gastrointestinal disorders (2 sources) Dysphagia, unspecified; Translations: [Dysphagia, unspecified] Episodic Other lower respiratory disease (9 sources) Dyspnea on exertion; Translations: [Shortness of breath] Onset: 04-02-2024 04-02-2024 Episodic Other nervous system disorders (20 sources) Chronic pain; Translations: [Other chronic pain] 10-23-2023 Chronic Other nervous system disorders (14 sources) Other chronic pain; Translations: [Other chronic pain] Chronic Other nervous system disorders (2 sources) Right-sided piriformis syndrome; Translations: [Lesion of sciatic nerve, right lower limb] 04-06-2024 Chronic Other nervous system disorders (2 sources) Difficulty walking; Translations: [Difficulty in walking, not elsewhere classified] 01-06-2025 Chronic Other non-traumatic joint disorders (2 sources) Pain in left knee Episodic Other non-traumatic joint disorders (2 sources) Acute ankle pain; Translations: [Pain in left ankle and joints of left foot] 12-23-2024 Episodic Other non-traumatic joint disorders (2 sources) Instability of joint of left ankle; Translations: [Other instability, left ankle] 01-06-2025 Episodic Other nutritional; endocrine; and metabolic disorders (20 sources) Body mass index 40+ - severely obese; Translations: [Morbid obesity] Onset: 04-02-2024 04-02-2024 Chronic Other nutritional; endocrine; and metabolic disorders (20 sources) Metabolic syndrome X; Translations: [Metabolic syndrome] Chronic Other nutritional; endocrine; and metabolic disorders (7 sources) Metabolic syndrome Onset: 01-30-2022 Resolved: 05-03-2022 Chronic Other nutritional; endocrine; and metabolic disorders (8 sources) Body mass index (BMI) 50.0-59.9, adult Onset: 03-22-2022 Resolved: 05-03-2022 Chronic Other nutritional; endocrine; and metabolic disorders (20 sources) Obesity; Translations: [Obesity, unspecified] Chronic Other nutritional; endocrine; and metabolic disorders (2 sources) Obesity, unspecified Chronic Other nutritional; endocrine; and metabolic disorders (2 sources) Body mass index (BMI) 45.0-49.9, adult; Translations: [Body mass index (BMI) 45.0-49.9, adult (Multi)] Onset: 04-02-2024 Chronic Other screening for suspected conditions (not mental disorders or infectious disease) (2 sources) Cardiovascular stress test abnormal; Translations: [Other nonspecific abnormal results of function study of cardiovascular system] Episodic Other upper respiratory infections (1 source) Acute upper respiratory infection, unspecified; Translations: [ACUTE UP RESPIRATORY INFECTION UNS] Onset: 08-15-2022 Episodic Pneumonia (except that caused by tuberculosis or sexually transmitted disease) (15 sources) Pneumonia; Translations: [Pneumonia, unspecified organism] 06-22-2022 Episodic Residual codes; unclassified (10 sources) Sleep apnea; Translations: [Unspecified sleep apnea] Onset: 04-02-2024 04-02-2024 Chronic Residual codes; unclassified (20 sources) Obstructive sleep apnea syndrome; Translations: [Obstructive sleep apnea (adult) (pediatric)] Chronic Residual codes; unclassified (7 sources) Obstructive sleep apnea (adult) (pediatric) Onset: 01-30-2022 Resolved: 05-03-2022 Chronic Residual codes; unclassified (2 sources) Sleep apnea, unspecified; Translations: [Sleep apnea, unspecified] Onset: 04-02-2024 Chronic Residual codes; unclassified (4 sources) Localized edema; Translations: [LOCALIZED EDEMA] Onset: 06-28-2022 Episodic Residual codes; unclassified (2 sources) Bilateral lower limb edema; Translations: [Localized edema] 12-23-2024 Episodic Septicemia (except in labor) (15 sources) Sepsis; Translations: [Sepsis, unspecified organism] 06-22-2022 Episodic Spondylosis; intervertebral disc disorders; other back problems (20 sources) Inflammation of sacroiliac joint; Translations: [Sacroiliitis, not elsewhere classified] Onset: 12-23-2023 Chronic Substance-related disorders (12 sources) Smoker; Translations: [Tobacco use disorder] Onset: 04-02-2024 Chronic Comment on above: 1.5 TO PPD; Thyroid disorders (20 sources) Hypothyroidism; Translations: [Hypothyroidism, unspecified] Onset: 01-30-2022 Resolved: 05-03-2022 Chronic Unclassified (3 sources) CONTACT W/AND (SUSP) EXPOS COVID-19; Translations: [CONTACT W/AND (SUSP) EXPOS COVID-19] Onset: 08-15-2022 Past or Other Problems Problem Classification Problem Date Documented Da te Episodic/Chronic Other non-traumatic joint disorders (4 sources) Pain in right hip; Translations: [PAIN IN RIGHT HIP] Onset: 02-06-2022 Episodic Other non-traumatic joint disorders (2 sources) Pain in right hip joint; Translations: [Pain in right hip] 04-03-2024 Episodic Other nutritional; endocrine; and metabolic disorders (1 source) Abnormal weight gain Onset: 01-30-2022 Resolved: 01-30-2022 Episodic Otitis media and related conditions (1 source) Otitis media, unspecified, bilateral Onset: 03-20-2022 Resolved: 03-20-2022 Episodic Residual codes; unclassified (20 sources) Sedentary lifestyle; Translations: [Other specified personal risk factors, not elsewhere classified] Onset: 12-23-2023 12-23-2023 Episodic Spondylosis; intervertebral disc disorders; other back problems (20 sources) Right cervical root neuropathy; Translations: [Radiculopathy, cervical region] Onset: 09-30-2023 09-27-2023 Episodic Unclassified (1 source) CONTACT W/AND (SUSP) EXPOS COVID-19; Translations: [CONTACT W/AND (SUSP) EXPOS COVID-19] Onset: 08-08-2022 Unclassified (1 source) Low back pain, unspecified back pain laterality, unspecified chronicity, unspecified whether sciatica present M54.50 Results Test Name Value Interpretation Reference Range Facility Provider Letteron 04-22-2025 Provider Letter Provider Letter April 22, 2025 AISHWARYA HARTMAN [address] [id number] : 1960 Dear Aishwarya Hartman , We have been trying to reach you with no success. It is important that you return our call regarding your referral upon receiving this letter. Also, at the time of your call, please provide us with your current information. Thank you for your prompt attention to this matter. Sincerely, [facility] [phone] Normal [facility] XR lumbar spine 6V w bending on 02-04-2025 XR lumbar spine 6V w bending [facility] [place] [address] XRay Report Signed Patient: Aishwarya Hartman MR#: [id number] 2 : 1960 Acct:[id number] Age/Sex: 65 / F ADM Date: 02/04/25 Loc: XD Room: Type: [facility] Attending Dr: Linda Nj APRN Copies to: Linda Nj APRN Ordering Provider: Linda Nj APRN Date of Service: 02/04/25 XR/XR lumbar [...] L5-S1. Impression dictated by: Lorenzo Kendrick Jr., D.OLeonel 02/04/2025 1:22 PM Dictation Location: [place] [address] Transcribed By: MERCEDES 02/04/25 1322 Dictated By: Lorenzo Kendrick Jr, DO 02/04/25 1321 Signed By: 02/04/25 1322 Normal [facility] XR Ankle - left 3 [facility] Result: AP Lateral and Oblique left ankle: No acute fracture, no dislocation Near bone on bone articulation of talus and tibia with subchondral sclerosis and subchondral cystic changes adjacent to articular surface. Degenerative spurring to medial and lateral aspects of talus. Ankle mortise is not symmetric with advanced arthritic changes. Impression: moderate to severe arthritis left ankle. [facility] Radiology Study observation (narrative) [facility] XR Foot - left 3 [facility] Result: AP, Lateral and oblique left foot: No acute fracture or dislocation Mild soft tissue prominence diffuse to foot Small calcaneal enthesophyte, notable degenerative changes at ankle joint. Impression: Moderate to severe ankle arthritis and small heel spur with no acute bony process. [facility] Radiology Study observation (narrative) [facility] NM Heart Perfusion W stress and W radionuclide [place] 05-26-2024 Normal Lexiscan Myov iew cardiac perfusion stress test. No evidence of ischemia or myocardial infarction by perfusion imaging. Normal left ventricular systolic function, ejection fraction 73%. No change when compared to previous study. Signed by: Noman Henriquez 05/26/2024 5:32 PM Dictation workstation: [id number] Interpreted By: Noman Henriquez and Giannuzzi Michael STUDY: MYOCARDIAL PERFUSION STRESS TEST WITH LEXISCAN Performing facility: [facility], [address] [place] [address], [address], [address] Provider: Noman Henirquez MD PCP: Dr. Charley Saravia [facility] Supervising provider: Noman Henriquez MD INDICATION: Chest Pain; HISTORY: Gender: F; Age: 64 y/o ; Height: HT 147.3 cm cm; Weight: WT 103.874 kg kg. High Cholesterol; Diabetes; HTN; Palpitations; Chest Pain; SOB; COPD; Currently smoking. COMPARISON: Previous nuclear testing completed at [place]. ACCESSION NUMBER(S): [id number] ORDERING CLINICIAN: NOMAN HENRIQUEZ TECHNIQUE: TWO DAY protocol. Stress injection: Date:05-25-24, [...] There were evidence of breast attenuation artifact. MMODAL Noman Henriquez MD - 05/26/2024 Interpreted By: Noman Henriquez and Giannuzzi Michael STUDY: MYOCARDIAL PERFUSION STRESS TEST WITH LEXISCAN Performing facility: [facility], [address] [place] [address], [address], [address] Provider: Noman Henriquez MD PCP: Dr. Charley Saravia [facility] Supervising provider: Noman Henriquez MD INDICATION: Chest Pain; HISTORY: Gender: F; Age: 64 y/o ; Height: HT 147.3 cm cm; Weight: WT 103.874 kg kg. High Cholesterol; Diabetes; HTN; Palpitations; Chest Pain; SOB; COPD; Currently smoking. COMPARISON: Previous nuclear testing completed at [place]. ACCESSION NUMBER(S): [id number] ORDERING CLINICIAN: NOMAN HENRIQUEZ TECHNIQUE: TWO DAY protocol. Stress injection: Date:05-25-24, [...] compared to previous study. Signed by: Noman Henriquez 05/26/2024 5:32 PM Dictation workstation: [id number] [facility] Work Phone: NM Heart Perfusion W stress and W radionuclide IVOrdered By: Noman Henriquez on 05-26-2024 [facility] Work Phone: NM Heart Perfusion W stress and W radionuclide [place] 05-25-2024 Radiology Study observation (narrative) [facility] Work Phone: NUCLEAR STRESS TESTon 2023 NUCLEAR STRESS TEST Interpreted By: Noman Henriquez and Giannuzzi Michael STUDY: MYOCARDIAL PERFUSION STRESS TEST WITH LEXISCAN Performing facility: [facility], [address] [place] [address], [address], [place] [address] [facility] Provider: Noman Henriquez MD PCP: Dr. Charley Saravia [facility] Supervising provider: Noman Henriquez MD INDICATION: Chest Pain; HISTORY: Gender: F; Age: 64 y/o ; Height: HT 147.3 cm cm; Weight: WT 103.874 kg kg. High Cholesterol; Diabetes; HTN; Palpitations; Chest Pain; SOB; COPD; Currently smoking. COMPARISON: Previous nuclear testing completed at [place]. ACCESSION NUMBER(S): [id number] ORDERING CLINICIAN: NOMAN HENRIQUEZ TECHNIQUE: TWO DAY protocol. Stress injection: Date:05-25-24, [...] compared to previous study. Signed by: Noman Henriquez 05/26/2024 5:32 PM Dictation workstation: [id number] [facility] Glucose Glucometer (BldC) [M ass/Vol]Ordered By: Jet Bansal on 08-28-2023 Glucose [Mass/Vol] 113 mg/dL [facility] Comment on above: Random Glucose Refer ence Range is dependent on time and content of last meal. Glucose of more than 200 mg/dL in a nonstressed, ambulatory subject supports the diagnosis of Diabetes Mellitus. No Panel InformationOrdered By: Jet Bansal on 08-28-2023 Bedside Glucose Comment Glu2: cleaned meter [facility] Albumin [Mass/volume] in Ser um or PlasmaOrdered By: Sisi Saravia on 10-11-2022 Albumin [Mass/Vol] 4.0 g/dL 3.2-5.5 [facility] Alkaline phosphatase [Enzyma tic activity/volume] in Serum or PlasmaOrdered By: Sisi Saravia on 10-11-2022 ALP [Catalytic activity/Vol] 173 U/L 32-92 [facility] Aspartate aminotransferase [ Enzymatic activity/volume] in Serum or PlasmaOrdered By: Sisi Saravia on 10-11-2022 AST [Catalytic activity/Vol] 24 U/L 10-42 [facility] Basophils Auto (Bld) [#/Vol] Ordered By: Sisi Saravia on 10-11-2022 Basophils (Bld) [#/Vol] 0.1 10*3/uL 0.0-0.2 [facility] Basophils/100 WBC Auto (Bld) Ordered By: Sisi Saravia on 10-11-2022 Basophils/100 WBC (Bld) 0.9 % . [facility] Bilirubin.total [Mass/volume ] in Serum or PlasmaOrdered By: Sisi Saravia on 10-11-2022 Bilirubin [Mass/Vol] 0.4 mg/dL 0.3-1.2 [facility] Calcium [Mass/volume] in Ser um or PlasmaOrdered By: Sisi Saravia on 10-11-2022 Calcium [Mass/Vol] 9.4 mg/dL 8.2-10.2 [facility] Carbon dioxide, total [Moles /volume] in Serum or PlasmaOrdered By: Sisi Saravia on 10-11-2022 CO2 [Moles/Vol] 27.4 mmol/L 22.0-30.0 [facility] Chloride [Moles/volume] in S eb or PlasmaOrdered By: Sisi Saravia on 10-11-2022 Chloride [Moles/Vol] 103 mmol/L 95-114 [facility] Cholesterol [Mass/volume] in Serum or PlasmaOrdered By: Sisi Saravia on 10-11-2022 Cholesterol [Mass/Vol] 181 mg/dL 140-200 [facility] Comment on above: Chol less than 200 m g/dl low riskChol 201-239 mg/dl borderline riskChol 240 mg/dl and greater high risk Cholesterol in LDL Calc [Mas s/Vol]Ordered By: Sisi Saravia on 10-11-2022 Cholesterol in LDL [Mass/Vol] 86 mg/dL 0-100 [facility] Comment on above: LDL ATP III CLASSIFI CATIONLDL less than 100 mg/dL OptimalLDL 100-129 mg/dL Near or above optimalLDL 130-159 mg/dL Borderline highLDL 160-189 mg/dL HighLDL greater than 189 mg/dL Very high Cholesterol in VLDL Calc [Ma ss/Vol]Ordered By: Sisi Saravia on 10-11-2022 Cholesterol in VLDL [Mass/Vol] 45 mg/dL [facility] Creatinine and Glomerular fi ltration rate.predicted panel (S/P/Bld)Ordered By: Sisi Saravia on 10-11-2022 Creatinine [Mass/Vol] 0.88 mg/dL 0.44-1.03 [facility] Eosinophils Auto (Bld) [#/Vo l]Ordered By: Sisi Saravia on 10-11-2022 Eosinophils (Bld) [#/Vol] 0.1 10*3/uL 0.0-0.45 [facility] Eosinophils/100 WBC Auto (Bl d)Ordered By: Sisi Saravia on 10-11-2022 Eosinophils/100 WBC (Bld) 0.8 % . [facility] Erythrocyte distribution wid th Auto (RBC) [Ratio]Ordered By: Sisi Saravia on 10-11-2022 Erythrocyte distribution width (RBC) [Ratio] 15.1 % 11.9-15.3 [facility] Estimated glomerular filtrat ion rate (GFR) non- AmericanOrdered By: Sisi Saravia on 10-11-2022 GFR/1.73 sq M.predicted among non-blacks MDRD (S/P/Bld) [Vol rate/Area] > 60 mL/Min [facility] Globulin Calc (S) [Mass/Vol] Ordered By: Sisi Saravia on 10-11-2022 Globulin (S) [Mass/Vol] 2.4 g/dL [facility] Glucose [Mass/volume] in Ser um or PlasmaOrdered By: Sisi Saravia on 10-11-2022 Glucose [Mass/Vol] 109 mg/dL 70-100 [facility] Comment on above: ADA recommended refe rence rangeRandom Glucose Reference Range is dependent on time and content of last meal. Glucose of more than 200 mg/dL in a nonstressed, ambulatory subject supports the diagnosis of Diabetes Mellitus. Glucose mean value [Mass/vol ume] in Blood Estimated from glycated hemoglobinOrdered By: Sisi Saravia on 10-11-2022 Average glucose Estimated from glycated hemoglobin (Bld) [Mass/Vol] 126 mg/dL [facility] Hematocrit Auto (Bld) [Volum e fraction]Ordered By: Sisi Saravia on 10-11-2022 Hematocrit (Bld) [Volume fraction] 42.4 % 34.0-46.4 [facility] Hemoglobin A1c percentageOrd ered By: Sisi Saravia on 10-11-2022 HbA1c (Bld) [Mass fraction] 6.0 % 4.3-5.6 [facility] Comment on above: Increased risk for d iabetes: 5.7 - 6.4diabetes: >6.4glycemic control for adults with diabetes: <7.0 Hemoglobin [Mass/volume] in BloodOrdered By: Sisi Saravia on 10-11-2022 Hemoglobin (Bld) [Mass/Vol] 14.0 g/dL 11.8-15.4 [facility] Iron [Mass/volume] in Serum or PlasmaOrdered By: Sisi Saravia on 10-11-2022 Iron [Mass/Vol] 93 ug/dL 40-150 [facility] Leukocytes [#/volume] correc michelle for nucleated erythrocytes in Blood by Automated counOrdered By: Sisi Saravia on 10-11-2022 WBC corrected for nucl RBC Auto (Bld) [#/Vol] 6.4 10*3/uL 3.8-11.6 [facility] Lymphocytes Auto (Bld) [#/Vo l]Ordered By: Sisi Saravia on 10-11-2022 Lymphocytes (Bld) [#/Vol] 1.8 10*3/uL 1.00-4.8 [facility] Lymphocytes/100 WBC Auto (Bl d)Ordered By: Sisi Saravia on 10-11-2022 Lymphocytes/100 WBC (Bld) 28.2 % . [facility] MCH Auto (RBC) [Entitic mass ]Ordered By: Sisi Saravia on 10-11-2022 MCH (RBC) [Entitic mass] 29.9 pg 24.7-34.3 [facility] MCHC Auto (RBC) [Mass/Vol]Or dered By: Sisi Saravia on 10-11-2022 MCHC (RBC) [Mass/Vol] 33.1 g/dL 32.0-35.0 [facility] MCV Auto (RBC) [Entitic vol] Ordered By: Sisi Saravia on 10-11-2022 MCV (RBC) [Entitic vol] 90.3 fL 80-100 [facility] Monocytes Auto (Bld) [#/Vol] Ordered By: Sisi Saravia on 10-11-2022 Monocytes (Bld) [#/Vol] 0.4 10*3/uL 0.0-0.8 [facility] Monocytes/100 WBC Auto (Bld) Ordered By: Sisi Saravia on 10-11-2022 Monocytes/100 WBC (Bld) 6.7 % . [facility] Neutrophils Auto (Bld) [#/Vo l]Ordered By: Sisi Saravia on 10-11-2022 Neutrophils (Bld) [#/Vol] 4.1 10*3/uL 1.8-7.7 [facility] Neutrophils/100 WBC Auto (Bl d)Ordered By: Sisi Saravia on 10-11-2022 Neutrophils/100 WBC (Bld) 63.4 % . [facility] No Panel InformationOrdered By: Sisi Saravia on 10-11-2022 Estimated GFR () > 60 mL/Min [facility] Comment on above: GFR estimated refere nce range: According to KDOQI guidelines, <60 ml/min/1.73m2 is sufficient to diagnose a patient with chronic kidney disease. Pharmacy Creatinine Clearance (Chem N/A [facility] Nucleated erythrocytes [Pres ence] in Blood by Automated countOrdered By: Sisi Saravia on 10-11-2022 Nucleated RBC Auto Ql (Bld) 0.1 /100{WBC} 0-0.5 [facility] Platelet mean volume Auto (B ld) [Entitic vol]Ordered By: Sisi Saravia on 10-11-2022 Platelet mean volume (Bld) [Entitic vol] 9.0 fL 6.3-10.7 [facility] Platelets Auto (Bld) [#/Vol] Ordered By: Sisi Saravia on 10-11-2022 Platelets (Bld) [#/Vol] 225 10*3/uL 150-450 [facility] Potassium [Moles/volume] in Serum or PlasmaOrdered By: Sisi Sraavia on 10-11-2022 Potassium [Moles/Vol] 4.2 mmol/L 3.5-5.1 [facility] Protein [Mass/volume] in Ser um or PlasmaOrdered By: Sisi Saravia on 10-11-2022 Protein [Mass/Vol] 6.4 g/dL 6.1-7.9 [facility] RBC Auto (Bld) [#/Vol]Ordere d By: Sisi Saravia on 10-11-2022 RBC (Bld) [#/Vol] 4.70 10*6/uL 3.60-5.00 [facility] Serum or plasma alanine donato otransferase measurement without P-5'-P (enzymatic activiOrdered By: Sisi Saravia on 10-11-2022 ALT No additional P-5'-P [Catalytic activity/Vol] 38 U/L 10-60 [facility] Serum or plasma albumin/glob ulin mass ratioOrdered By: Sisi Saravia on 10-11-2022 Albumin/Globulin [Mass ratio] 1.7 {ratio} [facility] Serum or plasma anion gap de terminationOrdered By: Sisi Saravia on 10-11-2022 Anion gap [Moles/Vol] 9.8 mmol/L 6.0-15.0 [facility] Serum or plasma high density lipoprotein (HDL) cholesterol measurementOrdered By: Sisi Saravia on 10-11-2022 Cholesterol in HDL [Mass/Vol] 50 mg/dL 35-85 [facility] Comment on above: HDL CHOL ATP-III CLA SSIFICATION Cardiovascular RiskHDL > or equal to 60 mg/dL LOWHDL < 40 mg/dL HIGH Serum or plasma total choles terol/high density lipoprotein (HDL) cholesterol mass ratOrdered By: Sisi Saravia on 10-11-2022 Cholesterol.total/Chol esterol in HDL [Mass ratio] 3.6 {ratio} <5.0 [facility] Sodium [Moles/volume] in Ser um or PlasmaOrdered By: Sisi Saravia on 10-11-2022 Sodium [Moles/Vol] 136 mmol/L 136-146 [facility] Triglyceride [Mass/volume] i n Serum or PlasmaOrdered By: Sisi Saravia on 10-11-2022 Triglyceride [Mass/Vol] 226 mg/dL 35-149 [facility] Comment on above: TRIG ATP III CLASSIF ICATIONTRIG less than 150 mg/dL NormalTRIG 150-199 mg/dL Borderline highTRIG 200-500 mg/dL High TRIG greater than 500 mg/dL Very highStandard traceable to the Center for Disease Conrtrol and Prevention (CDC) test method. Urea nitrogen [Mass/volume] in Serum or PlasmaOrdered By: Sisi Saravia on 10-11-2022 Urea nitrogen [Mass/Vol] 8 mg/dL 05-11 [facility] WBC Auto (Bld) [#/Vol]Ordere d By: Sisi Saravia on 10-11-2022 WBC (Bld) [#/Vol] 6.4 10*3/uL 3.8-11.6 [facility] Covid-19 PCR (CVDTBH)on 07-20 SARS-CoV-2 (COVID-19) RNA COURTNEY+probe Ql (Unsp spec) Not detected Normal NOT DETECTED [facility] Comment on above: Result Comment: This test is not yet approved or cleared by the [place] FDA. When there are no FDA-approved or cleared tests available, and other criteria are met, FDA can make tests available under an emergency access mechanism called an Emergency Use Authorization (EUA). The EUA for this test is supported by the [place] of Health and Human Service's (HHS's) declaration that circumstances exist to justify the emergency use of in vitro diagnostics for the detection and/or diagnosis of the virus that causes COVID-19. This EUA will remain in effect (meaning this test can be used) for the duration of the COVID-19 declaration justifying emergency of IVDs, unless it is terminated or revoked by FDA (after which the test may no longer be used). When diagnostic testing is negative, the possibility of a false negative should be considered in the context of a patient's recent exposures and the presence of clinical signs and symptoms consistent with SARS-CoV-2. Performed By: #### C VDTB #### [facility] [address] [place] [address] Dr. Sahra Duke INFLUENZA A AND B AGon 08-08 INFLUENZA A AG Negative Normal NEGATIVE SEE COMMENT [facility] Comment on above: Performed By: #### I NFLUAB #### [facility] [address] [place] [address] Dr. Sahra Duke INFLUENZA B AG Negative Normal NEGATIVE SEE COMMENT [facility] Comment on above: Performed By: #### I NFLUAB #### [facility] [address] [place] [address] Dr. Sahra Duke INTERNAL CONTROLS Within Normal Limits Normal Wi thin Normal Limits [facility] Comment on above: Performed By: #### I NFLUAB #### [facility] [address] [place] [address] Dr. Sahra Duke Office Visit (Cardiology)on 07-10-2022 Follow-up visit Diagnoses/Problems Assessed Chest pain (786.50) (R07.9) Diabetes mellitus (250.00) (E11.9) Hyperlipidemia (272.4) (E78.5) Morbid obesity with BMI of 50.0-59.9, adult (278.01,V85.43) (E66.01,Z68.43) Shortness of breath on exertion (786.05) (R06.02) Sleep apnea (780.57) (G47.30) Current smoker (305.1) (F17.200) 1.5 TO PPD Palpitation (785.1) (R00.2) Essential hypertension, benign (401.1) (I10) Orders Chest pain, Essential hypertension, benign, Shortness of breath on exertion IO EKG Electrocardiogram- 12 Lead; Status:Complete; Done: 10Jul2022 Morbid obesity with BMI of 50.0-59.9, adult Some eating tips that can help you lose weight.; Status:Complete; Done: 10Jul2022 PMH: Abnormal stress test, Chest pain Renew: Aspirin 81 MG Oral Tablet Delayed Release; TAKE 1 TABLET DAILY SocHx: Current smoker Tobacco Use Screening; Status:Complete; Done: 10Jul2022 You need to stop smoking. Though it is not easy, more than half of all adult smokers have quit. We encourage you to write down all the reasons you should quit smoking and set a quit date for yourself. Ask us how we can help. You may also call 0-462-LSDHNOW for free resources and assistance.; Status:Complete; Done: 10Jul2022 Patient Instructions Please bring all medicines, vitamins, and herbal supplements with you when you come to the office. Prescriptions will not be filled unless you are compliant with your follow up appointments or have a follow up appointment scheduled as per instruction of your physician. Refills should be requested at the time of your visit. Follow up in 6 months with ekg Chief Complaint AISHWARYA HARTMAN is being seen for a 6 month follow-up of. History of Present Illness Patient is here for follow-up continue management for previous evaluation for chest pain, hypertension, hyperlipidemia and morbid obesity. Since last time I saw her she was in the hospital recently for treatment with pneumonia. She had no recurrence of her chest pain. She continues to smoke and complaint of shortness of breath. She denies lightheadedness, dizziness or syncope recent hospitalization record noted and reviewed with her. Assessment 1. Previous evaluation for chest pain appears atypical with negative noninvasive cardiac work-up however the patient is at least moderate risk for ischemic heart disease. She denies recurrence recently 2. Hypertension controlled 3. Hyperlipidemia on treatment 4 Sleep apnea using CPAP 5. Morbid obesity 6. Tobacco use and COPD 7.. Diabetes mellitus 8. Intermittent palpitation 9. Exertional shortness of breath due to morbid obesity and tobacco use 10. Recent treatment for pneumonia Plan 1. I reviewed with patient results of her stress test and recent hospitalization record 2. I recommended to the patient to continue present medical therapy 3. I advised her if she had recurrence of her chest pain down the road we may consider invasive evaluation considering her multiple risk factors. I educated her about ischemic heart disease symptoms and signs 4. I discussed with patient the importance of aggressively addressing her risk factors including losing weight, exercise, following healthy heart diet and stop smoking Surgical History Problems History of section Denied: History of Complete colonoscopy History of Finger amputation History of Hysterectomy History of Knee replacement History of Shoulder arthroscopy Current Meds Medication NameInstruction Albuterol Sulfate HFA 108 (90 Base) MCG/ACT Inhalation Aerosol SolutionINHALE 1 TO 2 PUFFS EVERY 4 TO 6 HOURS NEEDED. Allopurinol 300 MG Oral TabletTAKE 1 TABLET DAILY. Aspirin 81 MG Oral Tablet Delayed ReleaseTAKE 1 TABLET DAILY. Azelastine HCl - 0.05 % Ophthalmic SolutionINSTILL 1 DROP IN BOTH EYES EVERY 12 HOURS DAILY. Diclofenac Sodium 75 MG Oral Tablet Delayed ReleaseTake 1 tablet twice daily hydroCHLOROthiazide 25 MG Oral TabletTAKE 1 TABLET DAILY. hydrOXYzine Pamoate 25 MG Oral CapsuleTAKE 1 CAPSULE TWICE DAILY. Irbesartan 150 MG Oral TabletTAKE 1 TABLET DAILY. Levothyroxine Sodium 150 MCG Oral TabletTAKE 1 TABLET DAILY. Nitroglycerin 0.4 MG Sub[address]ual Tablet SublingualPL[address] 1 TABLET UNDER THE TONGUE EVERY 5 MINUTES FOR UP TO 3 DOSES NEEDED FOR CHEST PAIN.CALL 911 IF PAIN PERSISTS. Nortriptyline HCl - 50 MG Oral CapsuleTAKE 1 CAPSULE AT BEDTIME. Omeprazole 40 MG Oral Capsule Delayed Releaseas needed Ozempic (1 MG/DOSE) SOPNINJECT 1 UNIT Weekly Potassium Chloride ER 10 MEQ Oral Tablet Extended ReleaseTAKE 1 TABLET TWICE DAILY. Tylenol 8 Hour 650 MG Oral Tablet Extended ReleaseTAKE 1 TABLET 3-4 TIMES DAILY. Ziprasidone HCl - 20 MG Oral CapsuleTAKE 1 CAPSULE Daily Ziprasidone HCl - 80 MG Oral CapsuleTAKE 1 CAPSULE AT BEDTIME. Allergies Medication amoxicillin Adverse Reaction; Nausea; Updated By: Astrid Garibay; 08/25/2021 11:46:55 AM Social History Problems Current smoker (305.1) (F17.200) 1.5 TO PPD Daily caf (more content not included)... Normal [employer] Tobacco Screening.on 022 Fall risk assessment a) No falls within the last year -[facility] y [address] DO Work Phone: Tobacco use status [facility] a) Yes [facility] y [address] DO Work Phone: Tobacco Screening. Yes [facility] y [address] DO Work Phone: US DAFNE DOP LEG BILon 022 US DAFNE DOP LEG BELÉN EXAMINATION: US DAFNE DOP LEG BELÉN HISTORY: Bilateral lower leg edema COMPARISON: No relevant comparison available. FINDINGS: REGION: Bilateral lower extremities. THROMBI: None. COMPRESSIBILITY: Normal compressibility. FLOW: Normal waveform and antegrade flow between 5 and 20 cm/s. OTHER: Distal lower extremity subcutaneous edema. IMPRESSION: 1. No deep vein thrombus within the right or left lower extremity. Electronically authenticated by: TIMOTHY RODGERS Date: 2022-06-28 14:28 Normal [facility] Band form neutrophils/100 WB C Manual cnt (Bld)Ordered By: Piper Tate on 06-24-2022 Band form neutrophils/100 WBC (Bld) 10 % 0-5 [facility] Basophils Auto (Bld) [#/Vol] Ordered By: Piper Tate on 06-24-2022 Basophils (Bld) [#/Vol] N/A [facility] Basophils/100 WBC Auto (Bld) Ordered By: Piper Tate on 06-24-2022 Basophils/100 WBC (Bld) N/A [facility] Creatinine and Glomerular fi ltration rate.predicted panel (S/P/Bld)Ordered By: Piper Tate on 06-24-2022 Creatinine [Mass/Vol] 0.75 mg/dL 0.44-1.03 [facility] Eosinophils Auto (Bld) [#/Vo l]Ordered By: Piper Tate on 06-24-2022 Eosinophils (Bld) [#/Vol] N/A [facility] Eosinophils/100 WBC Auto (Bl d)Ordered By: Piper Tate on 06-24-2022 Eosinophils/100 WBC (Bld) N/A [facility] Erythrocyte distribution wid th Auto (RBC) [Ratio]Ordered By: Piper Tate on 06-24-2022 Erythrocyte distribution width (RBC) [Ratio] 14.5 % 11.9-15.3 [facility] Estimated glomerular filtrat ion rate (GFR) non- AmericanOrdered By: Piper Tate on 06-24-2022 GFR/1.73 sq M.predicted among non-blacks MDRD (S/P/Bld) [Vol rate/Area] > 60 mL/Min [facility] Giant platelets/100 leukocyt es [Ratio] in Blood by Manual countOrdered By: Piper Tate on 06-24-2022 Giant platelets/100 WBC Manual cnt (Bld) [Ratio] 1 /100{WBC} [facility] Glucose Glucometer (BldC) [M ass/Vol]Ordered By: Piper Tate on 06-24-2022 Glucose [Mass/Vol] 116 mg/dL [facility] Comment on above: Random Glucose Refer ence Range is dependent on time and content of last meal. Glucose of more than 200 mg/dL in a nonstressed, ambulatory subject supports the diagnosis of Diabetes Mellitus. Hematocrit Auto (Bld) [Volum e fraction]Ordered By: Piper Tate on 06-24-2022 Hematocrit (Bld) [Volume fraction] 35.7 % 34.0-46.4 [facility] Hemoglobin [Mass/volume] in BloodOrdered By: Piper Tate on 06-24-2022 Hemoglobin (Bld) [Mass/Vol] 11.7 g/dL 11.8-15.4 [facility] Laboratory - Hematology and Cell countsOrdered By: Piper Tate on 06-24-2022 Nucleated RBC/100 WBC (Bld) [Ratio] 0.0 % 0-0.5 [facility] Leukocytes [#/volume] in Blo od by Automated countOrdered By: Piper Tate on 06-24-2022 WBC (Bld) [#/Vol] 15.9 10*3/uL 4.5-11.0 [facility] Lymphocytes Auto (Bld) [#/Vo l]Ordered By: Piper Tate on 06-24-2022 Lymphocytes (Bld) [#/Vol] N/A [facility] Lymphocytes/100 WBC Auto (Bl d)Ordered By: Piper Tate on 06-24-2022 Lymphocytes/100 WBC (Bld) N/A [facility] Lymphocytes/100 WBC Manual c nt (Bld)Ordered By: Piper Tate on 06-24-2022 Lymphocytes/100 WBC (Bld) 8 % 18-42 [facility] MCH Auto (RBC) [Entitic mass ]Ordered By: Piper Tate on 06-24-2022 MCH (RBC) [Entitic mass] 29.7 pg 24.7-34.3 [facility] MCHC Auto (RBC) [Mass/Vol]Or dered By: Piper Tate on 06-24-2022 MCHC (RBC) [Mass/Vol] 32.7 g/dL 32.0-35.0 [facility] MCV Auto (RBC) [Entitic vol] Ordered By: Piper Tate on 06-24-2022 MCV (RBC) [Entitic vol] 91.0 fL 80-100 [facility] Monocytes Auto (Bld) [#/Vol] Ordered By: Piper Tate on 06-24-2022 Monocytes (Bld) [#/Vol] N/A [facility] Monocytes/100 WBC Auto (Bld) Ordered By: Piper Taet on 06-24-2022 Monocytes/100 WBC (Bld) N/A [facility] Myelocytes/100 WBC Manual cn t (Bld)Ordered By: Piper Tate on 06-24-2022 Myelocytes/100 WBC (Bld) 3 % 0-0 [facility] Neutrophils Auto (Bld) [#/Vo l]Ordered By: Piper Tate on 06-24-2022 Neutrophils (Bld) [#/Vol] N/A [facility] Neutrophils/100 WBC Auto (Bl d)Ordered By: Piper Tate on 06-24-2022 Neutrophils/100 WBC (Bld) N/A [facility] No Panel InformationOrdered By: Piper Tate on 06-24-2022 Estimated GFR () > 60 mL/Min [facility] Comment on above: GFR estimated refere nce range: According to KDOQI guidelines, <60 ml/min/1.73m2 is sufficient to diagnose a patient with chronic kidney disease. Pharmacy Creatinine Clearance (Chem 92.05 [facility] Platelet adequacy [Presence] in Blood by Light microscopyOrdered By: Piper Tate on 06-24-2022 Platelets LM Ql (Bld) Normal Normal [facility] Platelet mean volume Auto (B ld) [Entitic vol]Ordered By: Piper Tate on 06-24-2022 Platelet mean volume (Bld) [Entitic vol] 9.7 fL 6.3-10.7 [facility] Platelet morphology finding [Identifier] in BloodOrdered By: Piper Tate on 06-24-2022 Platelet morphology finding Nom (Bld) N/A [facility] Platelets Auto (Bld) [#/Vol] Ordered By: Piper Tate on 06-24-2022 Platelets (Bld) [#/Vol] 219 10*3/uL 150-450 [facility] Platelets Large [Presence] i n Blood by Light microscopyOrdered By: Piper Tate on 06-24-2022 Platelets Large LM Ql (Bld) Slight [facility] Promyelocytes/100 WBC Manual cnt (Bld)Ordered By: Piper Tate on 06-24-2022 Promyelocytes/100 WBC (Bld) 1 % 0-0 [facility] RBC Auto (Bld) [#/Vol]Ordere d By: Piper Tate on 06-24-2022 RBC (Bld) [#/Vol] 3.92 10*6/uL 3.60-5.00 [facility] RBC morphologyOrdered By: Hollis Tate on 06-24-2022 RBC morphology finding Nom (Bld) Normal [facility] Segmented neutrophils/100 WB C Manual cnt (Bld)Ordered By: Piper Tate on 06-24-2022 Segmented neutrophils/100 WBC (Bld) 78 % 50-70 [facility] Serum or plasma anion gap de terminationOrdered By: Piper Tate on 06-24-2022 Anion gap [Moles/Vol] 10.8 mmol/L 6.0-15.0 [facility] Serum or plasma calcium rory urement (mass/volume)Ordered By: Piper Tate on 06-24-2022 Calcium [Mass/Vol] 8.9 mg/dL 8.2-10.2 [facility] Serum or plasma chloride luis surement (moles/volume)Ordered By: Piper Tate on 06-24-2022 Chloride [Moles/Vol] 107 mmol/L 95-114 [facility] Serum or plasma glucose rory urement (mass/volume)Ordered By: Piper Tate on 06-24-2022 Glucose [Mass/Vol] 129 mg/dL 70-100 [facility] Comment on above: ADA recommended refe rence rangeRandom Glucose Reference Range is dependent on time and content of last meal. Glucose of more than 200 mg/dL in a nonstressed, ambulatory subject supports the diagnosis of Diabetes Mellitus. Serum or plasma potassium me asurement (moles/volume)Ordered By: Piper Tate on 06-24-2022 Potassium [Moles/Vol] 4.5 mmol/L 3.5-5.1 [facility] Serum or plasma sodium measu rement (moles/volume)Ordered By: Piper Tate on 06-24-2022 Sodium [Moles/Vol] 135 mmol/L 136-146 [facility] Serum or plasma total carbon dioxide measurement (moles/volume)Ordered By: Piper Tate on 06-24-2022 CO2 [Moles/Vol] 21.7 mmol/L 22.0-30.0 [facility] Serum or plasma urea nitroge n measurement (mass/volume)Ordered By: Piper Tate on 06-24-2022 Urea nitrogen [Mass/Vol] 16 mg/dL 9-23 [facility] ABO and Rh group post transf usion reaction Nom (Bld)Ordered By: Piper Tate on 06-23-2022 Microscopic observation Gram stain Nom (Unsp spec) [facility] Body fluid albumin measureme nt (mass/volume)Ordered By: Milan Quintanilla on 06-22-2022 Albumin (Body fld) [Mass/Vol] 3.3 g/dL 3.2-5.5 [facility] COVID-19 Positive/NegativeOr dered By: Milan Quintanilla on 06-22-2022 SARS-CoV-2 (COVID-19) N gene COURTNEY+probe Ql (Resp) Negative Negative [facility] Comment on above: Testing for SARS-CoV -2 by RT-PCRThis test was developed and its performance characteristics determined by [employer] and validated at the [facility]. This test has not been FDA cleared or approved. This test has been authorized by FDA under an Emergency Use Authorization (EUA). This test has been validated in accordance with the FDA's Guidance Document (Policy for Diagnostics Testing in Laboratories Certified to Perform High Complexity Testing under CLIA prior to Emergency Use Authorization for Coronavirus Disease-2019 during the Public Health Emergency) issued on November 19, 2019. This test is only authorized for the duration of time the declaration that circumstances exist justifying the authorization of the emergency use of in vitro diagnostic tests for detection of SARS-CoV-2 virus and/or diagnosis of COVID-19 infection under section 564(b)(1) of the Act, 21 U.S.C. 360bbb-3(b)(1), unless the authorization is terminated or revoked sooner. COVID-19 SOFIAOrdered By: Ramses Quintanilla on 06-22-2022 SARS-CoV+SARS-CoV-2 (COVID-19) Ag IA.rapid Ql (Resp) Negative Negative [facility] Comment on above: This is a duplicate Janet SARS Antigen (MERRY) result to be used for statistical tracking purpose only. Globulin Calc (S) [Mass/Vol] Ordered By: Milan Quintanilla on 06-22-2022 Globulin (S) [Mass/Vol] 3.9 g/dL [facility] Laboratory - Chemistry and C hemistry - challengeOrdered By: Milan Quintanilla on 06-22-2022 Lactate [Moles/Vol] 1.9 mmol/L 0.5-2.2 [facility] Natriuretic peptide B (Bld) [Mass/Vol] 104.0 pg/mL 5-100 [facility] Laboratory - Chemistry and C hemistry - challengeOrdered By: Piper Tate on 06-22-2022 Magnesium [Mass/Vol] 1.8 mg/dL 1.6-2.6 [facility] Protein [Mass/volume] in Ser um or PlasmaOrdered By: Milan Quintanilla on 06-22-2022 Protein [Mass/Vol] 7.2 g/dL 6.1-7.9 [facility] Serum or plasma alanine donato otransferase measurement without P-5'-P (enzymatic activiOrdered By: Milan Quintanilla on 06-22-2022 ALT No additional P-5'-P [Catalytic activity/Vol] 33 U/L 10-60 [facility] Serum or plasma albumin/glob ulin mass ratioOrdered By: Milan Quintanilla on 06-22-2022 Albumin/Globulin [Mass ratio] 0.8 {ratio} [facility] Serum or plasma alkaline vivi sphatase measurement (enzymatic activity/volume)Ordered By: Milan Quintanilla on 06-22-2022 ALP [Catalytic activity/Vol] 148 U/L 32-92 [facility] Serum or plasma aspartate am inotransferase measurement (enzymatic activity/volume)Ordered By: Milan Quintanilla on 06-22-2022 AST [Catalytic activity/Vol] 17 U/L 10-42 [facility] Serum or plasma total biliru bin measurement (mass/volume)Ordered By: Milan Quintanilla on 06-22-2022 Bilirubin [Mass/Vol] 1.3 mg/dL 0.3-1.2 [facility] Comment on above: Samples from patient s who have taken Naproxen have shown spurious elevation in Total Bilirubin levels. A metabolite of Naproxen, O-desmethylnaproxen, has been shown to interfere with the Lorene-Berto method for measuring Total Bilirubin. Troponin I.cardiac [Mass/vol ume] in Serum or Plasma by High sensitivity methodOrdered By: Milan Quintanilla on 06-22-2022 Troponin I.cardiac High sensitivity method [Mass/Vol] 13 pg/mL 0-15 [facility] Albumin [Mass/volume] in Ser um or PlasmaOrdered By: Erika Garibay on 05-10-2022 Albumin [Mass/Vol] 4.3 g/dL 3.2-5.5 [facility] Basophils Auto (Bld) [#/Vol] Ordered By: Erika Garibay on 05-10-2022 Basophils (Bld) [#/Vol] 0.1 10*3/uL 0.0-0.2 [facility] Basophils/100 WBC Auto (Bld) Ordered By: Erika Garibay on 05-10-2022 Basophils/100 WBC (Bld) 1.4 % . [facility] Blood hemoglobin measurement (mass/volume)Ordered By: Erika Garibay on 05-10-2022 Hemoglobin (Bld) [Mass/Vol] 14.0 g/dL 11.8-15.4 [facility] Blood leukocytes automated c ount (number/volume)Ordered By: Erika Garibay on 05-10-2022 WBC (Bld) [#/Vol] 7.7 10*3/uL 4.5-11.0 [facility] C reactive protein [Mass/vol ume] in Serum or PlasmaOrdered By: Erika Garbiay on 05-10-2022 CRP [Mass/Vol] 1.2 mg/dL 0.0-1.0 [facility] CT biopsyOrdered By: Erika Garibay on 05-10-2022 CT biopsy 6.3 U/L 3.3-10.3 [facility] Comment on above: Performed at: [address] [id number] Director: Checo Judge PhD, Phone: [phone] Creatine kinase [Enzymatic a ctivity/volume] in Serum or PlasmaOrdered By: Erika Garibay on 05-10-2022 CK [Catalytic activity/Vol] 61 U/L [facility] Creatinine and Glomerular fi ltration rate.predicted panel (S/P/Bld)Ordered By: Erika Garibay on 05-10-2022 Creatinine [Mass/Vol] 0.93 mg/dL 0.44-1.03 [facility] Eosinophils Auto (Bld) [#/Vo l]Ordered By: Erika Garibay on 05-10-2022 Eosinophils (Bld) [#/Vol] 0.2 10*3/uL 0.0-0.45 [facility] Eosinophils/100 WBC Auto (Bl d)Ordered By: Erika Garibay on 05-10-2022 Eosinophils/100 WBC (Bld) 3.1 % . [facility] Erythrocyte distribution wid th Auto (RBC) [Ratio]Ordered By: Erika Garibay on 05-10-2022 Erythrocyte distribution width (RBC) [Ratio] 15.6 % 11.9-15.3 [facility] Erythrocyte sedimentation ra te by Photometric methodOrdered By: Erika Garibay on 05-10-2022 ESR Photometric method (d) [Velocity] 34 mm/hr 0-29 [facility] Estimated glomerular filtrat ion rate (GFR) non- AmericanOrdered By: Erika Garibay on 05-10-2022 GFR/1.73 sq M.predicted among non-blacks MDRD (S/P/Bld) [Vol rate/Area] > 60 mL/Min [facility] Globulin Calc (S) [Mass/Vol] Ordered By: Erika Garibay on 05-10-2022 Globulin (S) [Mass/Vol] 2.8 g/dL [facility] Hematocrit Auto (Bld) [Volum e fraction]Ordered By: Erika Garibay on 05-10-2022 Hematocrit (Bld) [Volume fraction] 42.4 % 34.0-46.4 [facility] Laboratory - Hematology and Cell countsOrdered By: Erika Garibay on 05-10-2022 Nucleated RBC/100 WBC (Bld) [Ratio] 0.2 % 0-0.5 [facility] Lymphocytes Auto (Bld) [#/Vo l]Ordered By: Erika Garibay on 05-10-2022 Lymphocytes (Bld) [#/Vol] 2.1 10*3/uL 1.00-4.8 [facility] Lymphocytes/100 WBC Auto (Bl d)Ordered By: Erika Garibay on 05-10-2022 Lymphocytes/100 WBC (Bld) 27.2 % . [facility] MCH Auto (RBC) [Entitic mass ]Ordered By: Erika Garibay on 05-10-2022 MCH (RBC) [Entitic mass] 30.6 pg 24.7-34.3 [facility] MCHC Auto (RBC) [Mass/Vol]Or dered By: Erika Garibay on 05-10-2022 MCHC (RBC) [Mass/Vol] 32.9 g/dL 32.0-35.0 [facility] MCV Auto (RBC) [Entitic vol] Ordered By: Erika Garibay on 05-10-2022 MCV (RBC) [Entitic vol] 92.8 fL 80-100 [facility] Monocytes Auto (Bld) [#/Vol] Ordered By: Erika Garibay on 05-10-2022 Monocytes (Bld) [#/Vol] 0.8 10*3/uL 0.0-0.8 [facility] Monocytes/100 WBC Auto (Bld) Ordered By: Erika Garibay on 05-10-2022 Monocytes/100 WBC (Bld) 10.0 % . [facility] Neutrophils Auto (Bld) [#/Vo l]Ordered By: Erika Garibay on 05-10-2022 Neutrophils (Bld) [#/Vol] 4.5 10*3/uL 1.8-7.7 [facility] Neutrophils/100 WBC Auto (Bl d)Ordered By: Erika Garibay on 05-10-2022 Neutrophils/100 WBC (Bld) 58.3 % . [facility] No Panel InformationOrdered By: Erika Garibay on 05-10-2022 Anti-Nuclear Antibody Comment 2 See comment . [facility] Comment on above: For more information about Hep-2 cell patterns useANApatterns.org, the official website for the InternationalConsensus on Antinuclear Antibody (ZUNILDA) Patterns (ICAP). ----A positive ZUNILDA result may occur in healthy individuals (lowtiter) or be associated with a variety of diseases. Seeinterpretation chart which is not all inclusive:Pattern Antigen Detected Suggested Disease Association Homogeneous DNA(ds,ss), SLE - High titers Nucleosomes, Histones Drug-induced SLE Speckled Sm, CARTOGRAPHIC AIDE, SCL-70, SLE,MCTD,PSS (diffuse form), SS-A/SS-B Sjogrens Nucleolar SCL-70, PM-1/SCL High titers Scleroderma, PM/DM Centromere Centromere PSS (limited form) w/Crest syndrome variable Nuclear Dot [id number] Primary Biliary Cirrhosis Nuclear GP210, Primary Biliary CirrhosisMembrane emily A,B,C Performed at: [employer] [facility] [address] [id number] Director: Checo Judge PhD, Phone: [phone] Estimated GFR () > 60 mL/Min [facility] Comment on above: GFR estimated refere nce range: According to KDOQI guidelines, <60 ml/min/1.73m2 is sufficient to diagnose a patient with chronic kidney disease. Pharmacy Creatinine Clearance (Chem N/A [facility] Platelet mean volume Auto (B ld) [Entitic vol]Ordered By: Erika Garibay on 05-10-2022 Platelet mean volume (Bld) [Entitic vol] 9.4 fL 6.3-10.7 [facility] Platelets Auto (Bld) [#/Vol] Ordered By: Erika Garibay on 05-10-2022 Platelets (Bld) [#/Vol] 295 10*3/uL 150-450 [facility] Protein [Mass/volume] in Ser um or PlasmaOrdered By: Erika Garibay on 05-10-2022 Protein [Mass/Vol] 7.1 g/dL 6.1-7.9 [facility] RBC Auto (Bld) [#/Vol]Ordere d By: Erika Garibay on 05-10-2022 RBC (Bld) [#/Vol] 4.57 10*6/uL 3.60-5.00 [facility] Serum homogeneous pattern an tinuclear antibody (ZUNILDA) titerOrdered By: Erika Garibay on 05-10-2022 Homogenous nuclear Ab pattern (S) [Titer] 1:80 . [facility] Comment on above: ICAP nomenclature: A C-1 Serum nuclear antibody titer Ordered By: Erika Garibay on 05-10-2022 Nuclear Ab (S) [Titer] Positive . [facility] Comment on above: Negative <1:80 Borde rline 1:80 Positive >1:80 Serum or plasma alanine donato otransferase measurement without P-5'-P (enzymatic activiOrdered By: Erika Garibay on 05-10-2022 ALT No additional P-5'-P [Catalytic activity/Vol] 82 U/L 10-60 [facility] Serum or plasma albumin/glob ulin mass ratioOrdered By: Erika Garibay on 05-10-2022 Albumin/Globulin [Mass ratio] 1.5 {ratio} [facility] Serum or plasma alkaline vivi sphatase measurement (enzymatic activity/volume)Ordered By: Erika Garibay on 05-10-2022 ALP [Catalytic activity/Vol] 172 U/L 32-92 [facility] Serum or plasma anion gap de terminationOrdered By: Erika Garibay on 05-10-2022 Anion gap [Moles/Vol] 16.3 mmol/L 6.0-15.0 [facility] Serum or plasma aspartate am inotransferase measurement (enzymatic activity/volume)Ordered By: Erika Garibay on 05-10-2022 AST [Catalytic activity/Vol] 39 U/L 10-42 [facility] Serum or plasma calcium rory urement (mass/volume)Ordered By: Erika Garibay on 05-10-2022 Calcium [Mass/Vol] 10.2 mg/dL 8.2-10.2 [facility] Serum or plasma chloride luis surement (moles/volume)Ordered By: Erika Garibay on 05-10-2022 Chloride [Moles/Vol] 98 mmol/L 95-114 [facility] Serum or plasma glucose rory urement (mass/volume)Ordered By: Erika Garibay on 05-10-2022 Glucose [Mass/Vol] 100 mg/dL 70-100 [facility] Comment on above: ADA recommended refe rence range Random Glucose Reference Range is dependent on time and content of last meal. Glucose of more than 200 mg/dL in a nonstressed, ambulatory subject supports the diagnosis of Diabetes Mellitus. ADA recommended refe rence rangeRandom Glucose Reference Range is dependent on time and content of last meal. Glucose of more than 200 mg/dL in a nonstressed, ambulatory subject supports the diagnosis of Diabetes Mellitus. Serum or plasma potassium me asurement (moles/volume)Ordered By: Erika Garibay on 05-10-2022 Potassium [Moles/Vol] 4.0 mmol/L 3.5-5.1 [facility] Serum or plasma sodium measu rement (moles/volume)Ordered By: Erika Garibay on 05-10-2022 Sodium [Moles/Vol] 139 mmol/L 136-146 [facility] Serum or plasma total biliru bin measurement (mass/volume)Ordered By: Erika Garibay on 05-10-2022 Bilirubin [Mass/Vol] 0.5 mg/dL 0.3-1.2 [facility] Serum or plasma total carbon dioxide measurement (moles/volume)Ordered By: Erika Garibay on 05-10-2022 CO2 [Moles/Vol] 28.7 mmol/L 22.0-30.0 [facility] Serum or plasma urea nitroge n measurement (mass/volume)Ordered By: Erika Garibay on 05-10-2022 Urea nitrogen [Mass/Vol] 10 mg/dL 05-11 [facility] Serum or plasma uric acid me asurement (mass/volume)Ordered By: Erika Garibay on 05-10-2022 Urate [Mass/Vol] 5.5 mg/dL 2.6-7.2 [facility] TSH DL <= 0.005 mIU/L QnOrde red By: Erika Garibay on 05-10-2022 TSH Qn 4.15 m[IU]/L 0.45-5.33 [facility] Thyroxine (T4) free [Mass/vo lume] in Serum or PlasmaOrdered By: Erika Garibay on 05-10-2022 Free T4 [Mass/Vol] 0.92 ng/dL 0.61-1.12 [facility] A1C HEMOGLOBINon 05-03-2022 HbA1c (Bld) [Mass fraction] 5.7 % [employer] Other HbA1c (Bld) [Mass fraction]o n 05-03-2022 A1C HEMOGLOBIN [employer] Other SARS-CoV-2 (COVID-19) RNA NA A+probe Ql (Resp)on 03-20-2022 SARS-CoV-2 (COVID-19) RNA COURTNEY+probe Ql (Unsp spec) Negative [employer] Other ZUNILDA by IFAon 02-08-2022 Antinuclear Antibodies, IFA Negative Normal [facility] Comment on above: Result Comment: Nega tive <1:80 Borderline 1:80 Positive >1:80 ICAP nomenclature: AC-0 For more information about Hep-2 cell patterns use ANApatterns.org, the official website for the International Consensus on Antinuclear Antibody (ZUNILDA) Patterns (ICAP). Performed By: #### A NAIFA #### [facility] [address] [place] [address] Dr. Sahra Duke ANTISTREPTOLYSIN O AB (ASO)o n 02-08-2022 Antistreptolysin O Ab 92.6 IU/mL Normal 0.0-200.0 [facility] Comment on above: Performed By: #### A SOAB #### [facility] [address] [place] [address] Dr. Sahra Duke RHEUMATOID FACTORon 02-09-20 RA Latex Turbid. <10.0 Normal <14.[address] [facility] Comment on above: Performed By: #### R F #### [facility] [address] [place] [address] Dr. Sahra Duke CRPon 02-06-2022 CRP [Mass/Vol] mg/L Normal <=1.0 [facility] Comment on above: Performed By: #### U JENNIFER, CRP #### [facility] [address] [place] [address] Dr. Sahra Duke URIC ACID SERUMon 02-06-2022 Urate [Mass/Vol] 6.6 mg/dL Critically high 2.6-6.0 [facility] Comment on above: Performed By: #### U JENNIFER, CRP #### [facility] [address] [place] [address] Dr. Sahra Duke Office Visit (Cardiology)on 12-28-2021 Follow-up visit Diagnoses/Problems Assessed Chest pain (786.50) (R07.9) Shortness of breath on exertion (786.05) (R06.02) Current smoker (305.1) (F17.200) 1.5 TO PPD Hyperlipidemia (272.4) (E78.5) Palpitation (785.1) (R00.2) Sleep apnea (780.57) (G47.30) Abnormal stress test (794.39) (R94.39) Morbid obesity with BMI of 50.0-59.9, adult (278.01,V85.43) (E66.01,Z68.43) Diabetes mellitus (250.00) (E11.9) Essential hypertension, benign (401.1) (I10) Orders Abnormal stress test, Chest pain Renew: Aspirin 81 MG Oral Tablet Delayed Release; TAKE 1 TABLET DAILY Morbid obesity with BMI of 50.0-59.9, adult Healthy Weight Tips; Status:Complete - Retrospective Authorization; Done: 28Dec2021 SocHx: Current smoker Tobacco Use Screening; Status:Complete; Done: 28Dec2021 You need to quit smoking.; Status:Complete - Retrospective Authorization; Done: 28Dec2021 You need to stop smoking. Though it is not easy, more than half of all adult smokers have quit. We encourage you to write down all the reasons you should quit smoking and set a quit date for yourself. Ask us how we can help. You may also call 2-784-VYXDCohBarNOW for free resources and assistance.; Status:Complete - Retrospective Authorization; Done: 28Dec2021 Patient Instructions By signing my name below, I, Sasha Francis LPN, Scribe, attest that this documentation has been prepared under the direction and in the presence of Dr. Noman Henriquez MD. All medical record entries made by the Kevin were at my direction and personally dictated by me. I have reviewed the chart and agree that the record accurately reflects my personal performance of the history, physical exam, discussion and plan. Please bring all medicines, vitamins, and herbal supplements with you when you come to the office. Prescriptions will not be filled unless you are compliant with your follow up appointments or have a follow up appointment scheduled as per instruction of your physician. Refills should be requested at the time of your visit. Follow up in 6 months History of Present Illness Patient is here for follow-up and management for previous evaluation of chest pain felt to be atypical likely GI, hypertension, hyperlipidemia and obesity. Since last time I saw her she described no change in cardiac status or symptoms. She denies any exertional symptoms. She denies lightheadedness, dizziness or syncope. She has mid to limited exercise tolerance due to her weight. Assessment 1. Episode of chest pain some of them is clearly atypical and likely to be GI due to gastroesophageal flux disease but other I cannot exclude the possibility of angina. Her recent stress test was negative for myocardial ischemia by perfusion images 2. Hypertension controlled 3. Hyperlipidemia on treatment 4 Sleep apnea using CPAP 5. Morbid obesity 6. Tobacco use 7.. Diabetes mellitus 8. Intermittent palpitation 9. Exertional shortness of breath due to morbid obesity and tobacco use Plan 1. I reviewed with patient results of her stress test and for the time being I reassured her considering her myocardial fusion study was negative for myocardial ischemia 2. I recommended to the patient to continue present medical therapy 3. I advised her if she continued to be symptomatic with chest pain especially if it becomes exertional we will consider an invasive evaluation 4. I discussed with patient the importance of aggressively addressing her risk factors including losing weight, exercise, following healthy heart diet and stop smoking Surgical History Problems History of section Denied: History of Complete colonoscopy History of Finger amputation History of Hysterectomy History of Knee replacement History of Shoulder arthroscopy Current Meds Medication NameInstruction Albuterol Sulfate HFA 108 (90 Base) MCG/ACT Inhalation Aerosol SolutionINHALE 1 TO 2 PUFFS EVERY 4 TO 6 HOURS NEEDED. Allopurinol 300 MG Oral TabletTAKE 1 TABLET DAILY. Aspirin 81 MG Oral Tablet Delayed ReleaseTAKE 1 TABLET DAILY. Carvedilol 3.125 MG Oral TabletTAKE 1 TABLET TWICE DAILY WITH MEALS. hydroCHLOROthiazide 25 MG Oral TabletTAKE 1 TABLET DAILY. hydrOXYzine Pamoate 25 MG Oral CapsuleTAKE 1 CAPSULE TWICE DAILY. Ibuprofen 600 MG Oral TabletTAKE 1 TABLET 4 TIMES DAILY. Irbesartan 150 MG Oral TabletTAKE 1 TABLET DAILY. Levothyroxine Sodium 150 MCG Oral TabletTAKE 1 TABLET DAILY. metFORMIN HCl - 500 MG Oral TabletTAKE 1 TABLET TWICE DAILY WITH FOOD. Nitroglycerin 0.4 MG Sublingual Tablet SublingualPLACE 1 TABLET UNDER THE TONGUE EVERY 5 MINUTES FOR UP TO 3 DOSES NEEDED FOR CHEST PAIN.CALL 911 IF PAIN PERSISTS. Nortriptyline HCl - 50 MG Oral CapsuleTAKE 1 CAPSULE AT BEDTIME. Omeprazole 40 MG Oral Capsule Delayed Releaseas needed Potassium Chloride ER 10 MEQ Oral Tablet Extended ReleaseTAKE 1 TABLET TWICE DAILY. Rosuvastatin Calcium 40 MG Oral TabletTAKE 1 TABLET DAILY. Spiriva HandiHaler 18 MCG Inhalation CapsuleU (more content not included)... Normal Touch[employer] Tobacco Screening.on 022 Adult depression screening assessment No [facility] 250 DO Work Phone: Fall risk assessment a) No falls within the last year [facility] 250 DO Work Phone: Tobacco use status CPHS b) No [facility] 250 DO Work Phone: Office Visit (Cardiology)on 08-25-2021 Follow-up visit Diagnoses/Problems Assessed Chest pain (786.50) (R07.9) Abnormal stress test (794.39) (R94.39) Current smoker (305.1) (F17.200) 1.5 TO PPD Diabetes mellitus (250.00) (E11.9) Essential hypertension, benign (401.1) (I10) Hyperlipidemia (272.4) (E78.5) Morbid obesity with BMI of 50.0-59.9, adult (278.01,V85.43) (E66.01,Z68.43) Sleep apnea (780.57) (G47.30) Palpitation (785.1) (R00.2) Shortness of breath on exertion (786.05) (R06.02) Orders Abnormal stress test, Chest pain Start: Aspirin 81 MG Oral Tablet Delayed Release; TAKE 1 TABLET DAILY IO EKG Electrocardiogram- 12 Lead; Status:Complete; Done: 25Aug2021 Abnormal stress test, Essential hypertension, benign Start: Carvedilol 3.125 MG Oral Tablet; TAKE 1 TABLET TWICE DAILY WITH MEALS Essential hypertension, benign Continue with our present treatment plan.; Status:Complete; Done: 25Aug2021 Morbid obesity with BMI of 50.0-59.9, adult Healthy Weight Tips; Status:Complete; Done: 25Aug2021 SocHx: Current smoker Tobacco Use Screening; Status:Complete; Done: 25Aug2021 Tobacco Use Screening; Status:Complete; Done: 25Aug2021 Follow up in [2-3 ] months Patient Instructions By signing my name below, Shannen Harris Lpn,Scribe, attest that this documentation has been prepared under the direction and in the presence of Dr. Noman Henriquez MD. All medical record entries made by the Scribe were at my direction and personally dictated by me. I have reviewed the chart and agree that the record accurately reflects my personal performance of the history, physical exam, discussion and plan. Please bring all medicines, vitamins, and herbal supplements with you when you come to the office. Prescriptions will not be filled unless you are compliant with your follow up appointments or have a follow up appointment scheduled as per instruction of your physician. Refills should be requested at the time of your visit. Chief Complaint AISHWARYA HARTMAN is being seen for abnormal test(s) results and stress. History of Present Illness Patient is here for vascular evaluation for complaint of chest pain and abnormal stress test. She is morbidly obese 61-year-old with multiple risk factor for ischemic heart disease including hypertension, hyperlipidemia, diabetes mellitus, morbid obesity and chronic tobacco use. She recently has been having intermittent episodes of chest pain some of them are recombinant and highly suggestive of gastroesophageal flux disease. However some appears exertional. She admits to limited exercise tolerance and dyspnea on exertion. Patient referred for a stress test. Her Lexiscan myocardial fusion study showed no evidence of myocardial ischemia by perfusion images but nondiagnostic ST-T changes were noted. Patient denies any previous cardiac history or diagnosis. She has never had a cardiac catheterization. She is high risk for ischemic heart disease based on risk profile. Her other concurrent complaint is rare palpitation and exertional shortness of breath Assessment 1. Episode of chest pain some of them is clearly atypical and likely to be GI due to gastroesophageal flux disease but other I cannot exclude the possibility of angina. Her recent stress test was negative for myocardial ischemia by perfusion images 2. Hypertension controlled 3. Hyperlipidemia on treatment 4 Sleep apnea using CPAP 5. Morbid obesity 6. Tobacco use 7.. Diabetes mellitus 8. Intermittent palpitation 9. Exertional shortness of breath due to morbid obesity and tobacco use Plan 1. I reviewed with patient results of her stress test and for the time being I reassured her considering her myocardial fusion study was negative for myocardial ischemia 2. I recommended to the patient to take aspirin 81 mg once daily and to take omeprazole 40 mg daily for 4 to 6 weeks to see whether there is any improvement of her chest pain 3. I also recommended starting Coreg 3.125 twice daily which I believe it will have some cardioprotective goal and address some of her palpitation 4. We will see her back in 2 to 3 months. If patient continues to have complaint of chest pain I would consider proceeding with cardiac catheterization considering her risk factors 5. I discussed with patient the importance of aggressively addressing her risk factors including losing weight, exercise, following healthy heart diet and stop smoking Active Problems Problems Current smoker (305.1) (F17.200) 1.5 TO PPD Surgical History Problems History of section Denied: History of Complete colonoscopy History of Finger amputation History of Hysterectomy History of Knee replacement History of Shoulder arthroscopy Current Meds Medication NameInstruction Albuterol Sulfate HFA 108 (90 Base) MCG/ACT Inhalation Aerosol SolutionINHALE 1 TO 2 PUFFS EVERY 4 TO 6 HOURS NEEDED. Allopurinol 300 MG Oral TabletTAKE 1 TABLET DAILY. Azelastine HCl - 0.05 % Ophthalmic Solution hydroCHLOROthiazide 25 MG Oral (more content not included)... Normal [facility] Tobacco Screening.on 022 Tobacco use status CPHS a) Yes -[facility] 250 DO Work Phone: Vital Signs Date Time Vital Sign Value Performing Clinician Faci litprincess 01-06-2025 09:15-0400 Body height 147.3 cm Sp JIMENEZM Work Phone: [facility] 01-06-2025 09:15-0400 Body mass index (BMI) [Ratio] 51.25 kg/m2 Sp JIMENEZM Work Phone: [facility] 01-06-2025 09:15-0400 Body weight 111.22 kg Sp JIMENEZM Work Phone: [facility] 12-30-2024 14:32-0400 Body mass index (BMI) [Ratio] 51.25 kg/m2 Ashley Young DO Work Phone: [facility] 12-30-2024 14:32-0400 Body weight 111.22 kg Ashley Young DO Work Phone: [facility] 12-30-2024 14:32-0400 Diastolic blood pressure 82 mm[Hg] Ashley Young DO Work Phone: [facility] 12-30-2024 14:32-0400 Heart rate 99 /min Ashley Young DO Work Phone: [facility] 12-30-2024 14:32-0400 SaO2% (BldA) [Mass fraction] 91 % Ashley Young DO Work Phone: [facility] 12-30-2024 14:32-0400 Systolic blood pressure 128 mm[Hg] Lonniespeedy Young DO Work Phone: [facility] 12-23-2024 10:30-0400 Body height 147.3 cm Erika DEMPSEY Work Phone: [facility] 12-23-2024 10:30-0400 Body mass index (BMI) [Ratio] 50.16 kg/m2 Erika DEMPSEY Work Phone: [facility] 12-23-2024 10:30-0400 Body weight 108.86 kg Erika DEMPSEY Work Phone: [facility] 06-15-2024 11:02-0400 Body height 147.32 cm BURR SANDER-C Sisi Saravia Work Phone: [facility] 06-15-2024 11:02-0400 Body mass index (BMI) [Ratio] 48 kg/m2 BURR SANDER-Mira Saravia Work Phone: [facility] 06-15-2024 11:02-0400 Body weight 104.32 kg BURR SANDER-Mira Saravia Work Phone: [facility] 05-25-2024 11:41-0400 Diastolic blood pressure 76 mm[Hg] Arianna 1 [facility] 05-25-2024 11:41-0400 Heart rate 77 /min Arianna [address] [facility] 05-25-2024 11:41-0400 Systolic blood pressure 118 mm[Hg] Arianna 1 [facility] 04-02-2024 15:05-0400 Body height 147.3 cm Noman Henriquez MD Work Phone: [facility] 04-02-2024 15:05-0400 Body mass index (BMI) [Ratio] 47.86 kg/m2 Noman Henriquez MD Work Phone: [facility] 04-02-2024 15:05-0400 Body weight 103.87 kg Noman Henriquez MD Work Phone: [facility] 04-02-2024 15:05-0400 Diastolic blood pressure 64 mm[Hg] Noman Henriquez MD Work Phone: [facility] 04-02-2024 15:05-0400 Heart rate 88 /min Noman Henriquez MD Work Phone: [facility] 04-02-2024 15:05-0400 Systolic blood pressure 110 mm[Hg] Noman Henriquez MD Work Phone: [facility] 03-24-2024 17:46-0400 Body height 147.32 cm BURR SANDER-C Sisi Saravia Work Phone: [facility] 03-24-2024 17:46-0400 Body temperature 97.7 [degF] BURR SANDER-C Sisi Saravia Work Phone: [facility] 03-24-2024 17:46-0400 Body weight 104.32 kg BURR SANDER-C Sisi Saravia Work Phone: [facility] 03-24-2024 17:46-0400 Diastolic blood pressure 87 mm[Hg] BURR SANDER-C Sisi Saravia Work Phone: [facility] 03-24-2024 17:46-0400 Heart rate 95 /min BURR SANDER-C Sisi Saravia Work Phone: [facility] 03-24-2024 17:46-0400 Respiratory rate 20 /min BURR SANDER-C Sisi Saravia Work Phone: [facility] 03-24-2024 17:46-0400 SaO2% (BldA) [Mass fraction] 98 % BURR SANDER-C Sisi Rani Work Phone: [facility] 03-24-2024 17:46-0400 Systolic blood pressure 142 mm[Hg] BURR SANDER-C Sisi Rani Work Phone: [facility] 01-09-2024 14:55-0400 Body height 148.59 cm BURR SANDER-C Sisi Rani Work Phone: [facility] 01-09-2024 14:55-0400 Body mass index (BMI) [Ratio] 48.9 kg/m2 BURR SANDER-C Sisi Rani Work Phone: [facility] 01-09-2024 14:55-0400 Body weight 107.95 kg BURR SANDER-C Sisi Rani Work Phone: [facility] 12-02-2023 11:35-0400 Diastolic blood pressure 84 mm[Hg] BURR SANDER-C Sisi Rani Work Phone: [facility] 12-02-2023 11:35-0400 Heart rate 100 /min BURR SANDER-C Sisi Rani Work Phone: [facility] 12-02-2023 11:35-0400 SaO2% (BldA) [Mass fraction] 94 % BURR SANDER-C Sisi Rani Work Phone: [facility] 12-02-2023 11:35-0400 Systolic blood pressure 128 mm[Hg] BURR SANDER-C Sisi Rani Work Phone: [facility] 11-11-2023 17:01-0400 Body height 148.59 cm BURR SANDER-C Sisi Rani Work Phone: [facility] 11-11-2023 17:01-0400 Body temperature 97.9 [degF] BURR SANDER-C Sisi Rani Work Phone: [facility] 11-11-2023 17:01-0400 Body weight 105.23 kg BURR SANDER-C Sisi Rani Work Phone: [facility] 11-11-2023 17:01-0400 Diastolic blood pressure 82 mm[Hg] BURR SANDER-C Sisi Rani Work Phone: [facility] 11-11-2023 17:01-0400 Heart rate 88 /min BURR SANDER-C Sisi Rani Work Phone: [facility] 11-11-2023 17:01-0400 Respiratory rate 16 /min BURR SANDER-C Sisi Rani Work Phone: [facility] 11-11-2023 17:01-0400 SaO2% (BldA) [Mass fraction] 97 % BURR SANDER-C Sisi Rani Work Phone: [facility] 11-11-2023 17:01-0400 Systolic blood pressure 147 mm[Hg] BURR SANDER-C Sisi Rani Work Phone: [facility] 10-31-2023 10:41-0400 Body height 148.59 cm BURR SANDER-C Sisi Rani Work Phone: [facility] 10-31-2023 10:41-0400 Body mass index (BMI) [Ratio] 48.2 kg/m2 BURR SANDER-C Sisi Rani Work Phone: [facility] 10-31-2023 10:41-0400 Body weight 106.59 kg BURR SANDER-C Sisi Rani Work Phone: [facility] 10-31-2023 10:41-0400 Diastolic blood pressure 80 mm[Hg] BURR SANDER-C Sisi Rani Work Phone: [facility] 10-31-2023 10:41-0400 Heart rate 90 /min BURR SANDER-C Sisi Rani Work Phone: [facility] 10-31-2023 10:41-0400 SaO2% (BldA) [Mass fraction] 95 % BURR SANDER-C Sisi Rani Work Phone: [facility] 10-31-2023 10:41-0400 Systolic blood pressure 137 mm[Hg] BURR SANDER-C Sisi Rani Work Phone: [facility] 10-09-2023 09:55-0500 Diastolic blood pressure 75 mm[Hg] BURR SANDER-C Sisi Saravia Work Phone: [facility] 10-09-2023 09:55-0500 Heart rate 82 /min BURR SANDER-C Sisibecka Leyvamer Work Phone: [facility] 10-09-2023 09:55-0500 Respiratory rate 18 /min BURR SANDER-C Sisibecka Leyvamer Work Phone: [facility] 10-09-2023 09:55-0500 SaO2% (BldA) [Mass fraction] 94 % BURR SANDER-C Sisi Saravia Work Phone: [facility] 10-09-2023 09:55-0500 Systolic blood pressure 142 mm[Hg] BURR SANDER-C Sisi Leyvamer Work Phone: [facility] 10-09-2023 09:15-0500 Inhaled oxygen flow rate 3 L/min BURR SANDER-C Sisi Saravia Work Phone: [facility] 10-09-2023 08:21-0500 Body height 147.32 cm BURR SANDER-C Sisi Saravia Work Phone: [facility] 10-09-2023 08:21-0500 Body weight 104.32 kg BURR SANDER-C Sisi Saravia Work Phone: [facility] 09-17-2023 10:45-0500 Body height 147.32 cm Jet Bansal Other [facility] 09-17-2023 10:45-0500 Diastolic blood pressure 76 mm[Hg] Jet Bansal Other [facility] 09-17-2023 10:45-0500 SaO2% (BldA) [Mass fraction] 96 % Jet Bansal Other [facility] [employer] Other 09-17-2023 10:45-0500 Systolic blood pressure 112 mm[Hg] Jet Bansal Other [facility] 08-28-2023 10:53-0500 Diastolic blood pressure 53 mm[Hg] BURR SANDER-C Sisi Saravia Work Phone: [facility] 08-28-2023 10:53-0500 Heart rate 90 /min BURR SANDER-C Sisi Saravia Work Phone: [facility] 08-28-2023 10:53-0500 Respiratory rate 16 /min BURR SANDER-C Sisi Saravia Work Phone: [facility] 08-28-2023 10:53-0500 SaO2% (BldA) [Mass fraction] 97 % BURR SANDER-C Sisi Saravia Work Phone: [facility] 08-28-2023 10:53-0500 Systolic blood pressure 110 mm[Hg] BURR SANDER-C Sisi Saravia Work Phone: [facility] 08-28-2023 10:14-0500 Inhaled oxygen flow rate 3 L/min BURR SANDER-C Sisi Saravia Work Phone: [facility] 08-28-2023 09:54-0500 Body height 147.32 cm BURR SANDER-C Sisi Saravia Work Phone: [facility] 08-28-2023 09:54-0500 Body weight 107.04 kg BURR SANDER-C Sisi Saravia Work Phone: [facility] 07-31-2023 13:30-0500 Body height 147.32 cm Jet Bansal Other [facility] 07-31-2023 13:30-0500 Diastolic blood pressure 64 mm[Hg] Jet Bansal Other [facility] 07-31-2023 13:30-0500 SaO2% (BldA) [Mass fraction] 97 % Jet Bansal Other [facility] [employer] Other 07-31-2023 13:30-0500 Systolic blood pressure 112 mm[Hg] Jet Bansal Other [facility] 07-24-2023 10:15-0500 Diastolic blood pressure 70 mm[Hg] BURR SANDER-C Sisi Saravia Work Phone: [facility] 07-24-2023 10:15-0500 Heart rate 76 /min BURR SANDER-C Sisi Saravia Work Phone: [facility] 07-24-2023 10:15-0500 Respiratory rate 16 /min BURR SANDER-C Sisi Saravia Work Phone: [facility] 07-24-2023 10:15-0500 SaO2% (BldA) [Mass fraction] 98 % BURR SANDER-C Sisi Saravia Work Phone: [facility] 07-24-2023 10:15-0500 Systolic blood pressure 138 mm[Hg] BURR SANDER-C Sisi Saravia Work Phone: [facility] 07-24-2023 09:36-0500 Inhaled oxygen flow rate 3 L/min BURR SANDER-C Sisi Saravia Work Phone: [facility] 07-24-2023 09:09-0500 Body height 147.32 cm BURR SANDER-C Sisi Saravia Work Phone: [facility] 07-24-2023 09:09-0500 Body weight 108.86 kg BURR SANDER-C Sisi Saravia Work Phone: [facility] 07-09-2023 10:30-0500 Body height 147.32 cm Jet Bansal Other [employer] Other 07-09-2023 10:30-0500 Body mass index (BMI) [Ratio] 49.74 kg/m2 Jet Bansal Other [employer] Other 07-09-2023 10:30-0500 Body weight 107.96 kg Jet Bansal Other [employer] Other 07-09-2023 10:30-0500 Diastolic blood pressure 70 mm[Hg] Jet Bansal Other [employer] Other 07-09-2023 10:30-0500 SaO2% (BldA) [Mass fraction] 92 % Jet Bansal Other [employer] Other 07-09-2023 10:30-0500 Systolic blood pressure 120 mm[Hg] Jet Bansal Other [employer] Other 05-27-2023 13:00-0400 Body height 147.32 cm Nahiddeandre Landry Other [employer] Other 05-27-2023 13:00-0400 Body mass index (BMI) [Ratio] 48.96 kg/m2 Nahid Landry Other [employer] Other 05-27-2023 13:00-0400 Body weight 106.28 kg Nahid Landry Other [employer] Other 05-27-2023 13:00-0400 Diastolic blood pressure 89 mm[Hg] Nahid Landry Other [employer] Other 05-27-2023 13:00-0400 Respiratory rate 20 /min Nahid Landry Other [employer] Other 05-27-2023 13:00-0400 SaO2% (BldA) [Mass fraction] 98 % Nahid Landry Other [employer] Other 05-27-2023 13:00-0400 Systolic blood pressure 140 mm[Hg] Nahid Landry Other [employer] Other 02-21-2023 11:15-0400 Body height 147.32 cm Nahid Landry Other [employer] Other 02-21-2023 11:15-0400 Body mass index (BMI) [Ratio] 48.09 kg/m2 Nahid Landry Other [employer] Other 02-21-2023 11:15-0400 Body weight 104.37 kg Nahid Landry Other [employer] Other 02-21-2023 11:15-0400 Diastolic blood pressure 72 mm[Hg] Nahid Landry Other [employer] Other 02-21-2023 11:15-0400 Respiratory rate 20 /min Nahid Landry Other [employer] Other 02-21-2023 11:15-0400 SaO2% (BldA) [Mass fraction] 98 % Nahid Landry Other [employer] Other 02-21-2023 11:15-0400 Systolic blood pressure 123 mm[Hg] Nahid Singhdiff Other [employer] Other 10-10-2022 10:45-0500 Body height 147.32 cm Fransisco Kemp Other [employer] Other 10-10-2022 10:45-0500 Body mass index (BMI) [Ratio] 52.24 kg/m2 Fransisco Kemp Other [employer] Other 10-10-2022 10:45-0500 Body weight 113.4 kg Fransisco Kemp Other [employer] Other 10-10-2022 10:45-0500 Diastolic blood pressure 71 mm[Hg] Fransisco Kemp Other [employer] Other 10-10-2022 10:45-0500 Respiratory rate 20 /min Fransisco Kemp Other [employer] Other 10-10-2022 10:45-0500 Systolic blood pressure 121 mm[Hg] Fransisco Kemp Other [employer] Other 09-06-2022 11:00-0500 Body height 147.32 cm Katina Fitt Other [employer] Other 09-06-2022 11:00-0500 Body mass index (BMI) [Ratio] 51.87 kg/m2 Katina Fitt Other [employer] Other 09-06-2022 11:00-0500 Body weight 112.58 kg Katina Fitt Other [employer] Other 07-26-2022 14:30-0500 Body height 147.32 cm Nahid Landry Other [employer] Other 07-26-2022 14:30-0500 Body mass index (BMI) [Ratio] 51.53 kg/m2 Nahiddeandre Singhdiff Other [employer] Other 07-26-2022 14:30-0500 Body weight 111.86 kg Nahiddeandre Singhdiff Other [employer] Other 07-26-2022 14:30-0500 Diastolic blood pressure 72 mm[Hg] Nahid Landry Other [employer] Other 07-26-2022 14:30-0500 Respiratory rate 20 /min Nahid Landry Other [employer] Other 07-26-2022 14:30-0500 SaO2% (BldA) [Mass fraction] 99 % Nahid Landry Other [employer] Other 07-26-2022 14:30-0500 Systolic blood pressure 110 mm[Hg] Nahid Landry Other [employer] Other 07-18-2022 16:15-0500 Body height 147.32 cm Katina Ronnishanna Other [employer] Other 07-10-2022 15:01-0500 Body height 147.32 cm Sisi Schroeder Rani Work Phone: [facility] 250 DO Work Phone: 07-10-2022 15:01-0500 Body mass index (BMI) [Ratio] 51.41 kg/m2 Sisi S Rani Work Phone: [facility] 250 DO Work Phone: 07-10-2022 15:01-0500 Body surface area Derived from formula 1.99 m2 Sisi S Rani Work Phone: [facility] 250 DO Work Phone: 07-10-2022 15:01-0500 Body weight 111.59 kg Sisi S Rani Work Phone: [facility] 250 DO Work Phone: 07-10-2022 15:01-0500 Diastolic blood pressure 58 mm[Hg] Sisi S Arni Work Phone: [facility] 250 DO Work Phone: 07-10-2022 15:01-0500 Heart rate 80 /min Sisi Leyvamer Work Phone: [facility] 250 DO Work Phone: 07-10-2022 15:01-0500 Systolic blood pressure 118 mm[Hg] Sisi Schroeder Rani Work Phone: [facility] 250 DO Work Phone: 06-24-2022 16:36-0500 Heart rate 94 /min BURR SANDER-C Sisi Rani Work Phone: [facility] 06-24-2022 16:36-0500 Respiratory rate 16 /min BURR SANDER-C Sisi Rani Work Phone: [facility] 06-24-2022 15:30-0500 Body temperature 97.3 [degF] BURR SANDER-C Sisi Rani Work Phone: [facility] 06-24-2022 15:30-0500 Diastolic blood pressure 75 mm[Hg] BURR SANDER-C Sisi Rani Work Phone: [facility] 06-24-2022 15:30-0500 SaO2% (BldA) [Mass fraction] 97 % BURR SANDER-C Sisi Rani Work Phone: [facility] 06-24-2022 15:30-0500 Systolic blood pressure 162 mm[Hg] BURR SANDER-C Sisi Rani Work Phone: [facility] 06-24-2022 05:17-0500 Body weight 116.8 kg BURR SANDER-C Sisi Rani Work Phone: [facility] 06-22-2022 20:00-0400 Inhaled oxygen flow rate 3 L/min BURR SANDER-C Sisi Rani Work Phone: [facility] 06-22-2022 18:45-0400 Body height 147.32 cm BURR SANDER-C Sisi Rani Work Phone: [facility] 06-22-2022 11:30-0400 Body height 147.32 cm Carol Avilez Other [employer] Other 06-22-2022 11:30-0400 Body mass index (BMI) [Ratio] 51.2 kg/m2 Carol Avilez Other [employer] Other 06-22-2022 11:30-0400 Body temperature 97.9 [degF] Carol Avilez Other [employer] Other 06-22-2022 11:30-0400 Body weight 111.13 kg Carol Avilez Other [employer] Other 06-22-2022 11:30-0400 Diastolic blood pressure 42 mm[Hg] Carol Avilez Other [employer] Other 06-22-2022 11:30-0400 Respiratory rate 22 /min Carol Avilez Other [employer] Other 06-22-2022 11:30-0400 SaO2% (BldA) [Mass fraction] 96 % Carol Avilez Other [employer] Other 06-22-2022 11:30-0400 Systolic blood pressure 88 mm[Hg] Carol Avilez Other [employer] Other 06-14-2022 14:45-0400 Body height 147.32 cm Nahid Landry Other [employer] Other 06-14-2022 14:45-0400 Body mass index (BMI) [Ratio] 51.55 kg/m2 Nahid Landry Other [employer] Other 06-14-2022 14:45-0400 Body weight 111.9 kg Nahid Landry Other [employer] Other 06-14-2022 14:45-0400 Diastolic blood pressure 91 mm[Hg] Nahid Landry Other [employer] Other 06-14-2022 14:45-0400 Respiratory rate 20 /min Nahid Landry Other [employer] Other 06-14-2022 14:45-0400 SaO2% (BldA) [Mass fraction] 96 % Nahid Landry Other [employer] Other 06-14-2022 14:45-0400 Systolic blood pressure 142 mm[Hg] Nahid Landry Other [employer] Other 05-03-2022 14:45-0400 Body height 147.32 cm Nahid Landry Other [employer] Other 05-03-2022 14:45-0400 Body mass index (BMI) [Ratio] 51.76 kg/m2 Nahid Landry Other [employer] Other 05-03-2022 14:45-0400 Body weight 112.36 kg Nahid Landry Other [employer] Other 05-03-2022 14:45-0400 Diastolic blood pressure 79 mm[Hg] Nahid Singhdiff Other [employer] Other 05-03-2022 14:45-0400 Respiratory rate 20 /min Nahid Landry Other [employer] Other 05-03-2022 14:45-0400 SaO2% (BldA) [Mass fraction] 98 % Nahid Landry Other [employer] Other 05-03-2022 14:45-0400 Systolic blood pressure 121 mm[Hg] Nahid Landry Other [employer] Other 04-10-2022 09:00-0400 Body height 147.32 cm Joota II Other [employer] Other 04-10-2022 09:00-0400 Body mass index (BMI) [Ratio] 52.45 kg/m2 Osvaldo Wilmont II Other [employer] Other 04-10-2022 09:00-0400 Body weight 113.85 kg Osvaldo Wilmont II Other [employer] Other 03-22-2022 14:00-0400 Body height 147.32 cm Nahid Landry Other [employer] Other 03-22-2022 14:00-0400 Body mass index (BMI) [Ratio] 52.18 kg/m2 Nahid Landry Other [employer] Other 03-22-2022 14:00-0400 Body weight 113.26 kg Nahid Landry Other [employer] Other 03-22-2022 14:00-0400 Diastolic blood pressure 78 mm[Hg] Nahid Landry Other [employer] Other 03-22-2022 14:00-0400 Respiratory rate 18 /min Nahid Landry Other [employer] Other 03-22-2022 14:00-0400 SaO2% (BldA) [Mass fraction] 100 % Nahid Landry Other [employer] Other 03-22-2022 14:00-0400 Systolic blood pressure 130 mm[Hg] Nahid Landry Other [employer] Other 03-20-2022 14:30-0400 Body height 147.32 cm Nimco Castellanosault Other [employer] Other 03-20-2022 14:30-0400 Body mass index (BMI) [Ratio] 50.15 kg/m2 Nimco Castellanosault Other [employer] Other 03-20-2022 14:30-0400 Body temperature 98.2 [degF] Nimco Lawson Other [employer] Other 03-20-2022 14:30-0400 Body weight 108.86 kg Nimco Lawson Other [employer] Other 03-20-2022 14:30-0400 Respiratory rate 18 /min Nimco Castellanosault Other [employer] Other 03-20-2022 14:30-0400 SaO2% (BldA) [Mass fraction] 95 % Nimco Castellanosault Other [employer] Other 01-30-2022 14:00-0400 Body height 147.32 cm Nahid Landry Other [employer] Other 01-30-2022 14:00-0400 Body mass index (BMI) [Ratio] 53.04 kg/m2 Nahid Landry Other [employer] Other 01-30-2022 14:00-0400 Body weight 115.12 kg Nahid Landry Other [employer] Other 01-30-2022 14:00-0400 Diastolic blood pressure 80 mm[Hg] Nahid Landry Other [employer] Other 01-30-2022 14:00-0400 Respiratory rate 24 /min Nahid Landry Other [employer] Other 01-30-2022 14:00-0400 SaO2% (BldA) [Mass fraction] 96 % Nahid Landry Other [employer] Other 01-30-2022 14:00-0400 Systolic blood pressure 131 mm[Hg] Nahid Landry Other [employer] Other 12-28-2021 15:42-0400 Body height 147.32 cm Sisi S [employer] Work Phone: [facility] [employer] 250 DO Work Phone: 12-28-2021 15:42-0400 Body mass index (BMI) [Ratio] 54.13 kg/m2 Sisi S Rani Work Phone: [facility] [employer] 250 DO Work Phone: 12-28-2021 15:42-0400 Body surface area Derived from formula 2.03 m2 Sisi S Rani Work Phone: [facility] [employer] 250 DO Work Phone: 12-28-2021 15:42-0400 Body weight 117.48 kg Sisi Schroeder Rain Work Phone: [facility] 250 DO Work Phone: 12-28-2021 15:42-0400 Diastolic blood pressure 78 mm[Hg] Sisi S Rani Work Phone: [facility] 250 DO Work Phone: 12-28-2021 15:42-0400 Heart rate 98 /min Sisi S Rani Work Phone: [facility] 250 DO Work Phone: 12-28-2021 15:42-0400 Systolic blood pressure 138 mm[Hg] Sisi Schroeder Rani Work Phone: [facility] 250 DO Work Phone: 08-25-2021 11:42-0500 Diastolic blood pressure 72 mm[Hg] Sisi Schroeder Rani Work Phone: [facility] 250 DO Work Phone: 08-25-2021 11:42-0500 Systolic blood pressure 116 mm[Hg] Sisi Schroeder Rani Work Phone: [facility] 250 DO Work Phone: 08-25-2021 11:41-0500 Body height 147.32 cm Ssii S Rani Work Phone: [facility] 250 DO Work Phone: 08-25-2021 11:41-0500 Body mass index (BMI) [Ratio] 53.3 kg/m2 Sisi S Rani Work Phone: [facility] 250 DO Work Phone: 08-25-2021 11:41-0500 Body surface area Derived from formula 2.02 m2 Sisi S Rani Work Phone: [facility] 250 DO Work Phone: 08-25-2021 11:41-0500 Body weight 115.67 kg Sisi Schroeder Rani Work Phone: [facility] 250 DO Work Phone: 08-25-2021 11:41-0500 Diastolic blood pressure 76 mm[Hg] Sisi S Rani Work Phone: [facility] 250 DO Work Phone: 08-25-2021 11:41-0500 Heart rate 100 /min Sisi S Rani Work Phone: [facility] 250 DO Work Phone: 08-25-2021 11:41-0500 Systolic blood pressure 118 mm[Hg] Sisi S Rani Work Phone: [facility] 250 DO Work Phone: Encounters Encounter Date Encounter Type Care Provider Facility Start: 05-18-2025 End: 05-18-2025 Telephone encounter Heaven Beck [facility] Start: 05-18-2025 ambulatory Jesu Velazquez Facility:[facility] Start: 05-06-2025 End: 05-06-2025 ambulatory Laurel Cassidy Facility:[facility] Start: 05-06-2025 End: 05-06-2025 Patient encounter procedure Laurel Cassidy [facility] Start: 05-05-2025 End: 05-05-2025 Bamboo flowsheet Heaven Brink [facility] Start: 05-05-2025 End: 05-05-2025 Bamboo flowsheet Heaven Brink [facility] Start: 05-05-2025 End: 05-05-2025 ambulatory Heaven Brink [facility] Comment on above: Spondylosis without myelopathy or radiculopathy, lumbosacral region (Primary Dx); Arthritis of lumbar spine; Sedentary lifestyle Start: 04-30-2025 End: 04-30-2025 Bamboo flowsheet Heavenderek Beck [facility] Start: 04-30-2025 End: 04-30-2025 Bamboo flowsheet Heavenderek Beck [facility] Start: 04-30-2025 End: 04-30-2025 ambulatory Heaven Beck [facility] Comment on above: Spondylosis without myelopathy or radiculopathy, lumbosacral region (Primary Dx); Arthritis of lumbar spine; Sedentary lifestyle Start: 04-26-2025 End: 04-26-2025 Bamboo flowsheet Heavenderek Beck [facility] Start: 04-26-2025 End: 04-26-2025 Bamboo flowsheet Heavenderek Beck [facility] Start: 04-26-2025 End: 04-26-2025 ambulatory Heaven Beck [facility] Comment on above: Spondylosis without myelopathy or radiculopathy, lumbosacral region (Primary Dx); Arthritis of lumbar spine; Sedentary lifestyle Start: 04-23-2025 End: 04-23-2025 Bamboo flowsheet Leny Chacon PT [facility] Start: 04-23-2025 End: 04-23-2025 Bamboo flowsheet Leny Chacon PT [facility] Start: 04-23-2025 End: 04-23-2025 ambulatory Leny Chacon PT [facility] Comment on above: Spondylosis without myelopathy or radiculopathy, lumbosacral region (Primary Dx) Start: 04-13-2025 ambulatory Laurel Onela y:Agustin GEORGES Start: 02-04-2025 End: 02-04-2025 ambulatory Linda Nj Facility:[facility] Start: 01-06-2025 End: 01-06-2025 Bamboo flowsheet Sp Wan DPM Work Phone: [facility] Start: 01-06-2025 End: 01-06-2025 Bamboo flowsheet Sp Wan DPM Work Phone: [facility] Start: 01-06-2025 End: 01-06-2025 Office outpatient visit 25 minutes Sp Wan DPM Work Phone: [facility] Comment on above: Primary osteoarthrit is of left ankle (Primary Dx); Valgus deformity, not elsewhere classified, left ankle; Instability of left ankle joint; Difficulty walking; Diabetes mellitus due to underlying condition with diabetic polyneuropathy, with long-term current use of insulin ([facility]) Start: 01-06-2025 End: 01-06-2025 ambulatory SP Schroeder LEYDI Not Available Start: 12-30-2024 End: 12-30-2024 Office outpatient new 30 minutes Ashley Young DO Work Phone: [facility] Comment on above: 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 with discogenic back pain and lower extremity pain (Primary Dx) Start: 12-30-2024 End: 12-30-2024 ambulatory ASHLEY YOUNG Not Available Start: 12-30-2024 End: 12-30-2024 Bamboo flowsheet Ashley Young DO Work Phone: [facility] Start: 12-30-2024 End: 12-30-2024 Bamboo flowsheet Ashley Young DO Work Phone: [facility] Start: 12-23-2024 End: 12-23-2024 Bamboo flowsheet Erika DEMPSEY Work Phone: [facility] Start: 12-23-2024 End: 12-23-2024 Bamboo flowsheet Erika DEMPSEY Work Phone: [facility] Start: 12-23-2024 End: 12-23-2024 Office outpatient visit 25 minutes Erika DEMPSEY Work Phone: [facility] Comment on above: Acute left ankle peter n (Primary Dx); Left foot pain; Arthritis of left ankle; Bilateral leg edema Start: 12-23-2024 End: 12-23-2024 ambulatory ERIKA OROSCO Not Available Start: 06-15-2024 End: 06-15-2024 ambulatory BURR SANDER-C Sisi Saravia Work Phone: [facility] Work Phone: Start: 06-15-2024 End: 06-15-2024 Patient encounter procedure BURR SANDER-C Sisi Saravia Work Phone: [facility] Work Phone: Start: 06-09-2024 Registered Recurring BURR SANDER-C Fabi Olivia Work Phone: [facility] Start: 05-26-2024 End: 05-26-2024 Subsequent hospital visit by physician Arianna Masters 1 [facility] Start: 05-26-2024 End: 05-26-2024 ambulatory [facility] Start: 05-25-2024 End: 05-25-2024 Subsequent hospital visit by physician Arianna Masters 1 [facility] Comment on above: Chest pain, unspecif ied type Start: 05-25-2024 End: 05-25-2024 ambulatory [facility] Start: 04-06-2024 End: 04-06-2024 Office outpatient visit 15 minutes Erika DEMPSEY Work Phone: [facility] Comment on above: Right hip pain (Prim nawaf Dx); Piriformis syndrome, right Start: 04-02-2024 End: 04-02-2024 ambulatory [facility] Start: 04-02-2024 End: 04-02-2024 Office outpatient visit 25 minutes Noman Henriquez MD Work Phone: [facility] Comment on above: Chest pain, unspecif ied type; Essential hypertension; Hyperlipidemia, unspecified hyperlipidemia type; Sleep apnea, unspecified type; Chronic obstructive pulmonary disease, unspecified COPD type (Multi); Diabetes mellitus type II, non insulin dependent (Multi); Palpitations; BMI 45.0-49.9, adult (Multi); Current smoker Start: 03-24-2024 End: 03-24-2024 Emergency department patient visit B[facility]R SANDER-C Sisibecka Leyvamer Work Phone: [facility] Work Phone: Start: 03-09-2024 Registered Recurring BURR SANDER-C Fabi la Rani Work Phone: [facility] Start: 01-09-2024 End: 01-09-2024 ambulatory BURR SANDER-C Sisi Isabella Rani Work Phone: [facility] Work Phone: Start: 01-09-2024 End: 01-09-2024 Patient encounter procedure BURR SANDER-C Sisi Rani Work Phone: [facility] Work Phone: Start: 01-09-2024 End: 01-09-2024 ambulatory BURR SANDER-C Sisi Isabella Rani Work Phone: [facility] Work Phone: Start: 01-09-2024 End: 01-09-2024 Patient encounter procedure BURR SANDER-C Sisibecka Leyvamer Work Phone: [facility] Start: 01-06-2024 Registered Recurring BURR SANDER-C Fabi la Rani Work Phone: [facility] Start: 01-02-2024 End: 01-02-2024 ambulatory BURR SANDER-C Sisi Isabella Rani Work Phone: [facility] Work Phone: Start: 01-02-2024 End: 01-02-2024 Patient encounter procedure BURR SANDER-C Sisi Rani Work Phone: [facility] [place] [facility] Start: 12-02-2023 End: 12-02-2023 ambulatory BURR SANDER-C Sisi Isabella Rani Work Phone: [facility] Work Phone: Start: 12-02-2023 End: 12-02-2023 Patient encounter procedure BURR SANDER-C Sisibecka Saravia Work Phone: [facility] Work Phone: Start: 11-11-2023 End: 11-11-2023 Emergency department patient visit BURR SANDER-C Sisi Leyvamer Work Phone: [facility] Work Phone: Start: 10-31-2023 End: 10-31-2023 ambulatory BURR SANDER-C Sisi Mason Rani Work Phone: [facility] Work Phone: Start: 10-31-2023 End: 10-31-2023 Patient encounter procedure BURR SANDER-C Sisi Rani Work Phone: [facility] Work Phone: Start: 10-29-2023 Registered Recurring BURR SANDER-C Fabi la Rani Work Phone: [facility] Start: 10-09-2023 Non-patient / Non-visit BURR SANDER-C P jacquie Rani Work Phone: [facility] Work Phone: Start: 10-09-2023 End: 10-09-2023 Admission to same day surgery center B[facility] S[employer]ER-C Sisibecka Leyvamer Work Phone: [facility] Work Phone: Start: 10-09-2023 End: 10-09-2023 ambulatory BURR SANDER-C Sisi Leyvamer Work Phone: [facility] Work Phone: Start: 10-03-2023 Bamboo flowsheet Adriana Tatter cruzito [facility] Start: 10-03-2023 Bamboo flowsheet Adriana Tatter cruzito [facility] Start: 10-03-2023 End: 10-03-2023 ambulatory Adriana Nunnall [facility] Comment on above: Right cervical radic ulopathy (Primary Dx); Cervical radiculopathy Start: 10-01-2023 Telephone encounter Adriana guo [facility] Comment on above: re: PT today (She ca lled noting not feeling well today and needs to cx; I reminded and she confirmed 10/03.) Start: 09-27-2023 Bamboo flowsheet Sisi schroeder PT Work Phone: [facility] Start: 09-27-2023 Bamboo flowsheet Sisi schroeder PT Work Phone: [facility] Start: 09-27-2023 End: 09-27-2023 ambulatory Sisi Lucas PT Work Phone: [facility] Comment on above: Cervical radiculopat hy (Primary Dx); Right cervical radiculopathy Start: 09-25-2023 Registered Recurring B[employer] SANDER-C Fabi Olivia Work Phone: [facility] Start: 09-17-2023 End: 09-17-2023 ambulatory Jet Bansal Other [employer] Other Start: 09-17-2023 Office outpatient vi sit 25 minutes Jet Bansal [facility] Start: 09-17-2023 End: 09-17-2023 Patient encounter procedure BURR SANDER-C Sisi Saravia Work Phone: [facility]- Start: 08-28-2023 (PROC) PROCEDURE Jet Bansal [facility] Start: 08-28-2023 End: 08-28-2023 Admission to same day surgery center BURR SANDER-C Sisi Saravia Work Phone: [facility] Work Phone: Start: 08-28-2023 End: 08-28-2023 ambulatory BURR SANDER-C Sisi Saravia Work Phone: [facility] Work Phone: Start: 08-06-2023 End: 08-06-2023 ambulatory BURR SANDER-C Sisi Isabella Saravia Work Phone: [facility] Work Phone: Start: 08-06-2023 End: 08-06-2023 Patient encounter procedure BURR SANDER-C Sisi Rani Work Phone: [facility] [place] Work Phone: Start: 07-31-2023 End: 07-31-2023 ambulatory Jet Bansal Other [employer] Other Start: 07-31-2023 Office outpatient vi sit 15 minutes Jet Zoë [facility] Start: 07-31-2023 End: 07-31-2023 Patient encounter procedure BURR SANDER-C Sisi Saravia Work Phone: [facility] Work Phone: Start: 07-24-2023 (PROC) PROCEDURE Jet Bansal [facility] Start: 07-24-2023 End: 07-24-2023 ambulatory Jet Bansal Other [employer] Other Start: 07-24-2023 End: 07-24-2023 Admission to same day surgery center BURR SANDER-C Sisi Saravia Work Phone: [facility] Work Phone: Start: 07-16-2023 Registered Recurring BURR SANDER-C Fabi Olivia Work Phone: [facility] Start: 07-09-2023 End: 07-09-2023 ambulatory Jet Bansal Other [employer] Other Start: 07-09-2023 Office outpatient ne w 45 minutes Jetclemente Bansal [facility] Start: 07-09-2023 Telephone encounter Jet Zoë [facility] Start: 05-27-2023 End: 05-27-2023 ambulatory Nahid Landry Other [employer] Other Start: 05-27-2023 Follow-up encounter [facility]id [facility] Start: 05-27-2023 Registered Recurring BURR SANDER-C Fabi Olivia Work Phone: [facility] Work Phone: Start: 04-17-2023 End: 04-17-2023 ambulatory Fransisco Kemp Other [employer] Other Start: 04-17-2023 Telephone encounter Fransisco honeycutt [facility] Start: 02-21-2023 End: 02-21-2023 ambulatory Nahid Landry Other [employer] Other Start: 02-21-2023 Follow-up encounter Nahid [facility]ules [facility] Start: 11-19-2022 End: 11-19-2022 ambulatory Fransisco Kemp Other [employer] Other Start: 11-19-2022 Telephone encounter Fransisco honeycutt [facility] Start: 11-13-2022 End: 11-13-2022 ambulatory Frasnisco Kemp Other [employer] Other Start: 11-13-2022 Telephone encounter Fransisco honeycutt [facility] Start: 10-24-2022 End: 10-24-2022 ambulatory Rick Alberto Other [employer] Other Start: 10-24-2022 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 encounter 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 Start: 10-11-2022 End: 10-11-2022 ambulatory BURR SANDER-C Sisi Saravia Work Phone: [facility] Work Phone: Start: 10-11-2022 End: 10-11-2022 Patient encounter procedure BURR SANDER-C Sisi Saravia Work Phone: [facility] [address] Work Phone: Start: 10-10-2022 End: 10-10-2022 ambulatory Fransisco Viridiana Other [employer] Other Start: 10-10-2022 Office outpatient ne w 45 minutes Fransisco Kemp [facility] Start: 09-27-2022 End: 09-27-2022 ambulatory Osvaldo Roberts II Other [employer] Other Start: 09-27-2022 Telephone encounter Osvaldo Roberts II [facility] Start: 09-06-2022 ([facility]) WMN Init ial Provider Katina Padilla [facility] Start: 09-06-2022 End: 09-06-2022 ambulatory Katina Padilla Other [employer] Other Start: 09-06-2022 Registered Recurring BURR SANDER-Mira Olivia Work Phone: [facility] Work Phone: Start: 08-08-2022 End: 08-08-2022 ambulatory SISI SARAVIA Facility:[facility] Start: 07-26-2022 End: 07-26-2022 ambulatory Nahid Landry Other [employer] Other Start: 07-26-2022 Follow-up encounter Nahid [facility] Start: 07-18-2022 End: 07-18-2022 ambulatory Nahid Landry Other [employer] Other Start: 07-18-2022 IBT FOR OBESITY GROU P 2-10 30M Katina Padilla [facility] Start: 07-18-2022 Telephone encounter Nahid [facility] Start: 07-10-2022 Office outpatient vi sit 25 minutes Sisi Saravia Work Phone: [facility] 250 DO Work Phone: Start: 07-10-[address] Noman Henriquez Facility:[id number] Start: 06-28-2022 End: 06-29-[address] CRYSTAL CASILLAS Facility:[facility] Start: 06-22-2022 End: 06-24-2022 Evaluation and management of inpatient BURR SANDER-C Sisi Saravia Work Phone: [facility] [place] [facility] Start: 06-22-2022 End: 06-22-2022 ambulatory Carol Avilez Other [employer] Other Start: 06-22-2022 Patient encounter procedure Carol Avilez [facility] Start: 06-14-2022 Registered Recurring BURR SANDER-C Fabi Olivia Work Phone: [facility] Start: 06-14-2022 End: 06-14-2022 ambulatory Nahid Landry Other [employer] Other Start: 06-14-2022 Follow-up encounter Nahid [facility] Start: 05-10-2022 End: 05-10-2022 Patient encounter procedure BURR SANDER-C Sisibecka Leyvamer Work Phone: [facility] [address] Start: 05-03-2022 Registered Recurring BURR SANDER-C Fabi Olivia Work Phone: [facility] Start: 05-03-2022 End: 05-03-2022 ambulatory Nahid Landry Other [employer] Other Start: 05-03-2022 Follow-up encounter Nahid [facility]ules [facility] Start: 04-10-2022 End: 04-10-2022 ambulatory Osvaldo Roberts II Other [employer] Other Start: 04-10-2022 Office outpatient ne w 45 minutes Osvaldo Roberts II [facility] Start: 04-10-2022 End: 04-10-2022 Patient encounter procedure BURR SANDER-C Sisi Saravia Work Phone: [facility] Start: 03-30-2022 End: 03-30-2022 ambulatory Katina Padilla Other [employer] Other Start: 03-30-2022 Telephone encounter Katina Padilla [facility] Start: 03-22-2022 Registered Recurring BURR SANDER-Mira Olivia Work Phone: [facility] Start: 03-22-2022 End: 03-22-2022 ambulatory Nahid Landry Other [employer] Other Start: 03-22-2022 Follow-up encounter Nahid [facility] Start: 03-20-2022 End: 03-20-2022 ambulatory Nimco Lawson Other [employer] Other Start: 03-20-2022 Office outpatient vi sit 15 minutes Nimco Lawson [facility] Start: 02-06-2022 End: 02-07-2022 ambulatory SISI SARAVIA Facility: Start: 01-30-2022 End: 01-30-2022 ambulatory Nahid Landry Other [employer] Other Start: 01-30-2022 Nutrition therapy Nahid Ramires [facility] Start: 12-28-2021 Office outpatient vi sit 25 minutes Sisi Saravia Work Phone: [facility] 250 DO Work Phone: Start: 12-28-[address] Noman Henriquez Facility: Start: 08-25-2021 Office consultation new/estab patient 60 min Sisi Saravia Work Phone: [facility] 250 DO Work Phone: Start: 08-25-2021 ambulatory Sisi Saravia Facility: Procedures Date Procedure Procedure Detail Performing Clinician Start: 12-23-2024 End: 12-23-2024 Radex ankle complete minimum 3 views Erika DEMPSEY Work Phone: Start: 05-26-2024 Cv strs tst xers&/or rx cont ecg trcg only Noman Henriquez MD Work Phone: Start: 01-09-2024 X-ray of left knee BURR SANDER-C Sisi Saravia Work Phone: Start: 01-02-2024 X-ray of right knee BURR SANDER- C Sisi Saravia Work Phone: Start: 10-09-2023 Radiofrequency destruction of peripheral nerve BURR SANDER-C Sisi Saravia Work Phone: Start: 08-28-2023 Local anesthetic ner ve block in lower limb BURR SANDER-C Sisi Saravia Work Phone: Start: 08-06-2023 MR lumbar spine wo con BURR SANDER-C Sisi Saravia Work Phone: Start: 07-24-2023 Local anesthetic ner ve block in lower limb BURR SANDER-C Sisi Saravia Work Phone: Start: 06-24-2022 CT of thorax with contrast BURR SANDER-C Sisi Saravia Work Phone: Start: 06-22-2022 Plain chest X-ray BURR SANDER-C Sisi Saravia Work Phone: Start: 04-10-2022 Pelvis X-ray BURR SANDER-C Hany Saravia Work Phone: Amputation of hand, thumb or finger Sisi Saravia Work Phone: Arthroplasty of knee Sisi Saravia Work Phone: Arthroscopy of shoulder Fabi levy Schroeder Rani Work Phone: section Sisi Schroeder Cr amer Work Phone: Hysterectomy Sisi Saravia Work Phone: Investigation of transfusion reaction BURR SANDER-C Sisi Saravia Work Phone: NEGATED: Highlighted row has not occurred! Total colonoscopy Sisi Saravia Work Phone: Plan of Treatment Date Care Activity Detail Author Start: 05-07-2025 End: 05-07-2025 ambulatory [facility] Start: 05-05-2025 End: 05-05-2025 ambulatory 05/05/2025 12:00 PM EDT Treatment [facility] [address] [facility] [address] [place] [address] Heaven Beck PTA [facility] Start: 04-30-2025 End: 04-30-2025 ambulatory 04/30/2025 2:00 PM EDT Treatment [facility] [address] [facility] [address] [place] [address] Heaven Beck PTA Arrived [facility] Comment on above: Arrived Start: 04-29-2025 End: 04-29-2025 ambulatory 04/29/2025 11:30 AM EDT Treatment [facility] [address] [facility] [address] [place] [address] Nancy Russell PTA [facility] Start: 04-26-2025 End: 04-26-2025 ambulatory 04/26/2025 11:00 AM EDT Treatment [facility] [address] [facility] [address] [place] [address] Heaven Beck PTA [facility] Start: 04-19-2025 Influenza vaccination [facility] Start: 04-12-2025 End: 04-12-2025 Patient encounter procedure 04/12/2025 1:20 PM EDT Office Visit ZUNILDA SCALES [address] [facility] [address] [place] [address] Brigitte Quiñonez NP [address] [place] [address] [facility] [place] Start: 01-06-2025 End: 01-06-2025 Patient encounter procedure [facility] Comment on above: Arrived Start: 12-30-2024 End: 12-30-2024 Patient encounter procedure ZUNILDA SCALES Comment on above: Arrived Start: 12-23-2024 End: 12-23-2024 Patient encounter procedure 12/23/2024 10:30 AM EDT Office Visit [facility] [address] [place] [id number] Erika Orosco, PA [address] [facility] [address] [place] [address] Acute pain of left knee (Primary Dx) [facility] Comment on above: Acute pain of left knee (Primary Dx) Start: 08-06-2024 End: 08-06-2024 Patient encounter procedure 08/06/2024 3:10 PM EST Office Visit [address] [place] [id number] Noman Henriquez MD [address] [facility] [address] [place] [address] [facility] Start: 05-26-2024 End: 05-26-2024 Patient encounter procedure 05/26/2024 12:45 PM EDT Appointment [place] [id number] [facility] [address] [place] [phone] [facility] Start: 05-26-2024 Subsequent hospital visit by physician 05/26/2024 12:30 PM EDT Hospital Encounter [place] [id number] [facility] [address] [place] [phone] [facility] Start: 04-19-2024 COVID-19 Vaccine ( season) COVID-19 Vaccine () [facility] Start: 04-19-2024 Influenza vaccination Influenza Vaccine (#1) [facility] Start: 04-02-2024 End: 04-02-2026 NM Heart Perfusion W stress and W radionuclide IV Nuclear Stress Test Cardiac Nuclear Medicine Routine Chest pain, unspecified type Expected: 04/02/2024 (Approximate), Expires: 04/02/2026 [facility] Service Area Work Phone: Comment on above: Expected: 04/02/2024 (Approximate), Expi res: 04/02/2026 Start: 10-18-2023 End: 10-18-2023 Patient encounter procedure 10/18/2023 10:45 AM EST Office Visit [facility] [address] [place] [address] Erika Orosco PA [address] [place] [address] [facility] Start: 10-16-2023 End: 10-16-2023 ambulatory 10/16/2023 12:00 PM EST Treatment [facility] [address] [place] [address] Adriana White PTA [facility] Start: 10-14-2023 End: 10-14-2023 ambulatory 10/14/2023 12:30 PM EST Treatment [facility] [address] [place] [address] Adriana White PTA [facility] Start: 10-09-2023 [facility] Start: 10-07-2023 End: 10-07-2023 ambulatory 10/07/2023 12:30 PM EST Treatment [facility] [address] [place] [address] Adriana White PTA [facility] Start: 10-03-2023 End: 10-03-2023 ambulatory [facility] Comment on above: Arrived Start: 10-01-2023 End: 10-01-2023 ambulatory 10/01/2023 12:00 PM EST Treatment [facility] [address] [place] [address] Adriana White PTA [facility] Start: 08-28-2023 [facility] Start: 07-24-2023 [facility] Start: 04-19-2023 COVID-19 Vaccine ( season) COVID-19 Vaccine ( season) [facility] Start: 01-03-2023 FUV, Provider: Noman Henriquez, Status: Pen, Time: 2:50 PM FUV, Provider: Noman Henriquez, Status: Pen, Time: 2:50 PM [facility] DO Work Phone: Start: 10-11-2022 [facility] Start: 07-10-2022 FUV, Provider: Noman Henriquez, Status: Pen, Time: 2:30 PM FUV, Provider: Noman Henriquez, Status: Pen, Time: 2:30 PM [facility] [place] [address] DO Work Phone: Start: 06-24-2022 [facility] Start: 06-23-2022 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 ranch rider [facility] Start: 06-23-2022 End: 06-23-2022 [facility] Start: 06-23-2022 Microbial culture of sputum [facility] Start: 06-22-2022 Referral to Roof Bolting [employer] [facility] Start: 06-22-2022 Hospital admission [facility] Start: 05-10-2022 [facility] Work Phone: Start: 12-28-2021 FUV, Provider: Noman Henriquez, Status: Pen, Time: 3:20 PM FUV, Provider: Noman Henriquez, Status: Pen, Time: 3:20 PM [facility] [address] DO Work Phone: Start: 2021 RSV patients and/or patients aged 60+ years (1 - 1-dose 60+ series) RSV patients and/or patients aged 60+ years (1 - 1-dose 60+ series) [facility] Start: 2011 Zoster Vaccines (1 of 2) Zoster Vaccines (1 of 2) [facility] Start: 2001 Screening for malignant neoplasm of breast Mammogram [facility] Start: 1991 Screening for malignant neoplasm of cervix [facility] Start: 1983 DTaP/Tdap/Td Vaccines (1 - Tdap) DTaP/Tdap/Td Vaccines (1 - Tdap) [facility] Start: 1982 Screening for malignant neoplasm of cervix [facility] Start: 01-12-1980 Urine screening for protein Diabetes: Urine Protein Screening [facility] Start: 1979 Diabetes mellitus screening Diabetes Screening [facility] Start: 1979 Hepatitis C screening Hepatitis C Screening [facility] Start: 1971 Glaucoma screening Diabetes: Retinopathy Screening [facility] Start: 1967 Pneumococcal Vaccine: Pediatrics (0 to 5 Years) and At-Risk Patients (6 to 64 Years) (1 of 2 - PCV) Pneumococcal Vaccine: Pediatrics (0 to 5 Years) and At-Risk Patients (6 to 64 Years) (1 of 2 - PCV) [facility] Start: 1962 MMR Vaccines (1 of 1 - Standard series) MMR Vaccines (1 of 1 - Standard series) [facility] Start: 1961 Hemoglobin A1c measurement Diabetes: Hemoglobin A1C [facility] Start: 1961 HIV screening HIV Screening [facility] Start: 1961 Lipid panel Lipid Panel [facility] Start: 1961 Medicare Annual Wellness (AWV) Medicare Annual Wellness (AWV) [facility] Start: 1961 Medicare Annual Wellness Visit Medicare Annual Wellness Visit (AWV) [facility] Start: 1961 Screening for malignant neoplasm of colon [facility] Start: 1961 Thyroid stimulating hormone measurement TSH Level [facility] Aerobic microbial culture Aerobic Culture [facility] Aldolase measurement [facility] Work Phone: Blood culture for ba cteria, including anaerobic screen Blood Culture [facility] Fluoroscopy of esophagus [facility] Homogenous nuclear A b pattern [Titer] in Serum [facility] Work Phone: Insulin [Units/volum e] in Serum or Plasma [facility] End: 05-25-2024 NM Heart Perfusion W stress and W radionuclide IV [facility] Service Area Work Phone: Comment on above: Once for 1 Occurrences starting 05/25/20 24 until 05/25/2024 Nuclear Ab [Titer] in Serum [facility] Work Phone: Patient Education [facility] Work Phone: Patient referral [facility] Work Phone: Radionuclide gastric emptying study [facility] Thyrotropin [Units/v olume] in Serum or Plasma [facility] Thyroxine (T4) free index in Serum or Plasma by calculation [facility] Thyroxine measurement [facility] Triiodothyronine (T3 ) [Mass/volume] in Serum or Plasma [facility] Triiodothyronine res in uptake (T3RU) in Serum or Plasma [facility] XR Hip - right 3 Views XR hip ri ght 2 or 3 views Imaging Routine Right hip pain 04/06/2024 2:15 PM EDT [facility] Work Phone: [facility] Immunizations Immunization Date Immunization Notes Care Provider Fa franty 08-23-2023 influenza, injectabl e, quadrivalent, preservative free BURR SANDER-C Sisi Saravia Work Phone: [facility] 08-23-2023 influenza virus vaccine, unspecified formulation Noman Henriquez MD Work Phone: [facility] Work Phone: 11-29-2020 Pfizer-BioNTech COVID-19 Vacc 30 MCG/0.3ML Intramuscular Suspension Sisi Saravia Work Phone: [facility] 11-07-2020 Pfizer-BioNTech COVID-19 Vacc 30 MCG/0.3ML Intramuscular Suspension Sisi S Rani Work Phone: [facility] 06-22-2020 influenza, injectabl e, quadrivalent, preservative free Sisi S Rani Work Phone: [facility] 05-19-2020 influenza, injectabl e, quadrivalent, preservative free Sisi S Rani Work Phone: [facility] 07-07-2019 influenza, injectabl e, quadrivalent, preservative free Sisi S Rani Work Phone: [facility] 06-23-2018 influenza, injectabl e, quadrivalent, preservative free Sisi S Rani Work Phone: [facility] 06-17-2018 Influenza, injectabl e, Madin Sharee Canine Kidney, preservative free, quadrivalent BURR SANDER-C Sisi Rani Work Phone: [facility] 05-22-2016 influenza, injectabl e, quadrivalent, preservative free Sisi S Rani Work Phone: [facility] 07-25-2015 influenza, seasonal, injectable, preservative free Sisi S Rani Work Phone: [facility] Payers Date Payer Category Payer Medicaid [id number] 2023 Medicaid [id number] 2023 Unknown [id number] 2022 Self-pay [id number] 2021 Unknown [id number] 1988 Medicare [id number] 5 1961 Unknown [id number] 2.16. 840.1.069191.3.579.2.356 1961 Unknown [id number] 2.16. 840.1.222836.3.579.2.356 1961 Unknown [id number] 2.16. 840.1.144417.3.579.2.356 1961 Unknown [id number] 2.16.84 0.1.863650.3.579.2.593 1961 Unknown [id number] 2.16.84 0.1.043670.3.579.2.593 1961 Unknown [id number] 2.16.84 0.1.209561.3.579.2.593 1961 Unknown [id number] 2.16.8 40.1.265503.3.579.2.1244 1961 Unknown [id number] 2.16.8 40.1.052709.3.579.2.1246 1961 Unknown [id number] 2.16.8 40.1.088941.3.579.2.1246 1961 Unknown [id number] 2.16.8 40.1.070258.3.579.2.1246 1961 Unknown [id number] 2.16.8 40.1.049962.3.579.2.6 1961 Unknown [id number] 2.16.8 40.1.707569.3.579.2.1246 1961 Unknown [id number] 2.16.8 40.1.393979.3.579.2.1259 1961 Unknown [id number] 2.16.8 40.1.395998.3.579.2.1259 1961 Unknown [id number] 2.16.8 40.1.925405.3.579.2.1259 1961 Unknown [id number] 2.16.8 40.1.099156.3.579.2.1259 1961 Unknown [id number] 2.16.84 0.1.853080.3.579.2.1259 1961 Unknown [id number] 2.16.84 0.1.372513.3.579.2.1259 1961 Unknown [id number] 2.16.84 0.1.747483.3.579.2.1259 1961 Unknown [id number] 2.16.84 0.1.378993.3.579.2.1259 1961 Unknown [id number] 2.16.84 0.1.290098.3.579.2.1259 1961 Unknown [id number] 2.16.8 40.1.711557.3.579.2.727 1959 Medicare [id number] 2.1 [id number] Medicare Medicare Outpatient [id number] Unknown Unknown HCAP/HFA/FAP Active [id number] Unknown HCAP/HFA/FAP Active [id number] Unknown [id number] 2.16.8 40.1.564740.3.579.2.531 Unknown [id number] 2.16.8 40.1.180296.3.579.2.531 Social History Date Type Detail Facility Start: 09-12-2023 End: 01-06-2025 Daily caffeine consumption Daily caffeine consumption [facility] DO Work Phone: Comment on above: 4 CUPS OF COFFEE, GR EEN TEA; 1.5 TO PPD; Start: 09-12-2023 End: 01-06-2025 Sex Assigned At [facility] Start: 1960 Sex Assigned At Female F [facility] Start: 06-22-2022 End: 03-24-2024 Tobacco smoking status NHIS Smoker (finding) [facility] Start: 01-18-2023 End: 04-02-2024 Tobacco smoking status NHIS Smokes tobacco daily [facility] History of tobacco use Cigarette Smoker [facility] History of tobacco use Passive smoker [facility] Start: 01-18-2023 End: 04-02-2024 Tobacco use and exposure Smokeless tobacco non-user [facility] Start: 09-12-2023 End: 01-06-2025 Alcohol intake Lifetime non-drinker (finding) [facility] Start: 1960 Sex Assigned At Not on file [facility] Start: 03-23-2024 End: 05-26-2024 Exposure to SARS-CoV-2 (event) Not sure [facility] Tobacco smoking status [facility] Start: 11-06-2018 Sex Female (finding) [facility] NEGATED: Highlighted row [facility] Goals Date Patient Goal Desired Activity /State Functional Status Date Assessment Result Facility 06-24-2022 Functional status Patient at Baseline [facility] Work Phone: Mental Status Date Assessment Result Facility 06-24-2022 Cognitive function Cognitive Sta tus Patient at Baseline [facility] Work Phone: Clinical Notes 01-30-2022 to 05-18-2025 Heaven Beck PTA - 05/18/2025 6:01 PM Corazon Chacon PT - 04/23/2025 11:00 AM Willie Wan DPM - 01/06/2025 9:15 AM Salud Young DO - 12/30/2024 2:30 PM EDT Note Date & Type Note Facility 05-18-2025 History of Present illness Narrative Pt called and cancelled her last appointment due to falling on both knees and having pain. MD recommending her to put therapy on hold for 2 weeks. documented in this encounter [facility] 04-23-2025 History of Present illness Narrative Images from the original note were not included. Physical Therapy Evaluation Visit Patient Name: Aishwarya Hartman Today's Date: 04/23/2025 Encounter Diagnoses Name Primary? Spondylosis without myelopathy or radiculopathy, lumbosacral region Yes Visit number: 1 Timed Code Treatment Minutes: 38 minutes Total Treatment Time: 48 minutes Time In: 1100 Time Out: 1148 History: Pt states she has been having pain in her low back for a while. Was sent by neurologist to neurosurgeon. Pt states neurosurgeon said she was not candidate for lumbar surgery. Was seen by pain management in the past but states she was not willing to continue with RFA's. Pt is now being sent to therapy. Pt also states she has bad OA in bilateral knees which keeps her from squatting. States lately she has also been having issues with sciatic pain in left LE. Precautions: right TKA, falls Subjective: low back pain and left buttock pain Pain: 0-8/10 Objective: PT Evaluation (04/23/2025) LUMBAR SPINE AROM: [...] and Scar mobilization as needed. Therapeutic Exercise: (12 minutes) Strength, Endurance, Flexibility, ROM, HEP, Neural Mobilization, Power, and Core Stability as needed. Pt performed and instructed in home program this date; written instructions and pictures issued with good pt understanding. Therapeutic Activity: Exercises to improve dynamic activities, functional tasks, functional mobility to return to prior activity level as needed. Neuromuscular re-education: Balance Training, Muscle Facilitation, Dynamic Stability, Core Stabilization, and Blood Flow Restriction Training (BFRT) as needed. Modalities: Heat, Ice, Electrical Stimulation, Ultrasound, Cervical Mechanical Traction, Lumbar Mechanical Traction, Iontophoresis, and Fluidotherapy as needed. HP x 10 mins in sitting at end of session. Assessment: Pt is 65 y/o female with complaints of chronic low back and left LE pain. Pt with limited core and LE strength. Pt responds well to flexion based stretches. Instructed in home program and will benefit from further PT. Outcome Measure: Back Index: 40/50 Rehab Diagnosis: low back pain, left LE pain and weakness, difficulty walking, decrease core and LE strength Short Term Goal: To be met in 2 weeks Goal 1: Pt to be instructed in home exercise program. Community Board Member Goals: To be met in 10 weeks [...] POC medically necessary. Please sign below. Date: documented in this encounter [facility] 01-06-2025 History of Present illness Narrative Images from the original note were not included. Subjective Patient ID: Aishwarya Hartman is a 64 y.o. 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 Patient states she had xrays taken with Dr. Luis Miguel Orosco with ortho, and states they found spurs, and then was referred to our office. Patient also relates fallen arch with left foot. Patient states she is pre-diabetic. Patient also states that she may need orthotics, has had custom ones in the past but cannot find them. SS: 8.5-9). HPI This is a new patient who presents to our clinic via referral with concern of left foot, ankle pain and swelling. She states that this has been going on for quite some time. Symptoms described as aching in nature. Worse with walking, standing. She has not tried any treatment. Review of Systems Constitutional: Positive for activity change. Negative for appetite change. Respiratory: Negative for chest tightness and shortness of breath. Cardiovascular: Negative for chest pain. Musculoskeletal: Positive for arthralgias and gait problem. Skin: Negative for color change and wound. Neurological: Negative for weakness and numbness. Psychiatric/Behavioral: Negative for agitation and behavioral problems. Hematological: Does not bruise/bleed easily. Endocrine: Negative for cold intolerance and heat intolerance. Allergic/Immunologic: Negative for immunocompromised state. Past medical History Past Medical History: Diagnosis Date Asthma Bipolar 1 disorder ([facility]) COPD (chronic obstructive pulmonary disease) ([facility]) Diabetes mellitus ([facility]) Difficulty walking Fallen arches Gout Hypertension ([facility]) Ingrown toenail Onychomycosis Thyroid disease ([facility]) Verruca Medications Current Outpatient Medications: albuterol HFA 90 mcg/act inhaler, Inhale 2 puffs every 4 (four) hours if needed for wheezing, Disp: , Rfl: allopurinol (Zyloprim) 300 MG tablet, Take by mouth, Disp: , Rfl: b complex vitamins capsule, Take 1 capsule by mouth Daily, Disp: , Rfl: diclofenac (Voltaren) 75 MG EC tablet, Take 75 mg by mouth in the morning and 75 mg before bedtime. Do not crush, chew, or split., Disp: , Rfl: famotidine (Pepcid) 10 MG tablet, Take by mouth, Disp: , Rfl: furosemide (Lasix) 20 MG tablet, Take by mouth, Disp: , Rfl: Geodon 80 MG capsule, Take 80 mg by mouth every 12 (twelve) hours, Disp: , Rfl: hydroCHLOROthiazide (HYDRODiuril) 25 MG tablet, Take 25 mg by mouth Daily, Disp: , Rfl: irbesartan (Avapro) 150 MG tablet, Take 150 mg by mouth in the morning., Disp: , Rfl: levothyroxine (Synthroid, Levoxyl) 150 MCG tablet, Take 150 mcg by mouth in the morning. Take before meals., Disp: , Rfl: liothyronine (Cytomel) 5 MCG tablet, Take by mouth Daily, Disp: , Rfl: MAGNESIUM PO, Take 500 mg by mouth, Disp: , Rfl: montelukast (Singulair) 10 MG tablet, Take by mouth, Disp: , Rfl: nortriptyline (Pamelor) 50 MG capsule, Take 50 mg by mouth at bedtime, Disp: , Rfl: phytonadione (Vitamin K) 100 MCG tablet, Take by mouth, Disp: , Rfl: potassium chloride ER (Micro-K) 10 MEQ ER capsule, Take 10 mEq by mouth in the morning and 10 mEq before bedtime. Do not crush or chew., Disp: , Rfl: traZODone (Desyrel) 50 MG tablet, Take 50 mg by mouth 1 (one) time each day at the same time, Disp: , Rfl: Trelegy Ellipta 100-62.5-25 MCG/ACT aerosol powder , Inhale 1 puff in the morning., Disp: , Rfl: triamcinolone (Kenalog) 0.1 % cream, Apply 1 application topically in the morning and 1 application before bedtime., Disp: , Rfl: ziprasidone (Geodon) 20 MG capsule, Take 20 mg by mouth, Disp: , Rfl: predniSONE (Deltasone) 10 MG tablet, Take twice daily for 5 days, then take once daily for 5 days., Disp: 15 tablet, Rfl: 0 Allergies Amoxicillin, Lisinopril, and Talc Past Surgical History Past Surgical History: Procedure Laterality Date FINGER AMPUTATION Left LT MF DISTAL AMPUTATION PARTIAL HYSTERECTOMY TOENAIL EXCISION TOTAL KNEE ARTHROPLASTY Right 2017 RT TKA- DR LUNDBERG Family History Family History Problem Relation Name Age of Onset Parkinsonism Mother Coronary artery disease Father Diabetes Maternal Grandfather Papaw samples Diabetes Sister Judith Objective Physical Exam Constitutional: Appearance: She is obese. Comments: Presents to clinic ambulating with cane assistance. HENT: Head: Normocephalic and atraumatic. Cardiovascular: Comments: DP, PT pulses weakly palpable 1/4. Plus one pitting edema left lower extremity. Pulmonary: Effort: Pulmonary effort is normal. No respiratory distress. Abdominal: Palpations: There is no mass. Musculoskeletal: Cervical back: No rigidity. Comments: Weightbearing examination reveals pes planovalgus deformity. Unable to perform a double heel rise test. Left foot: Isolated and maximal tenderness along the anterior and anterolateral ankle joint. There is tenderness within the sinus tarsi as well. Tenderness to palpation along the posterior tibial tendon near its insertion on the navicular tuberosity. No forefoot or midfoot tenderness noted. Muscle strength 4/5 for all quadrants with tenderness on resisted dorsiflexion, eversion, inversion. Ankle dorsiflexion -5 degrees with the knee extended, flexed. Subtalar range of motion limited, painful especially with forced eversion. Skin: Capillary Refill: Capillary refill takes less than 2 seconds. Findings: No lesion or rash. Neurological: Mental Status: She is alert. Comments: No loss of protective sensation, gross sensation intact. Psychiatric: Mood and Affect: Mood normal. Behavior: Behavior normal. 12/23/2024: Three views of the left foot and ankle from [facility] reveal no acute fractures or dislocations. These are nonweightbearing however there appears to be significant degenerative changes of the tibiotalar joint with subchondral cystic changes as well as eccentric joint space narrowing medially. Avulsion fragment off of the medial malleolus potentially from prior injury. Large enthesophyte at the insertion of the plantar fascia. Potential degenerative changes across the subtalar joint and midfoot but again these are nonweightbearing. Assessment/Plan ICD-10-CM 1. Primary osteoarthritis of left ankle M19.072 predniSONE (Deltasone) 10 MG tablet 2. Valgus deformity, not elsewhere classified, left ankle M21.072 3. Instability of left ankle joint M25.372 4. Difficulty walking R26.2 5. Diabetes mellitus due to underlying condition with diabetic polyneuropathy, with long-term current use of insulin ([facility]) E08.42 Z79.4 Patient was examined and evaluated. I personally reviewed 3 radiographs of the left foot and 3 radiographs of the left ankle from [facility] and discussed my findings. 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 Causes and treatment options were discussed in detail. At this time I am recommending a home exercise program focusing on gastroc soleal contracture and periarticular ankle strengthening exercises. Program was printed off and given to the patient. Complete daily as instructed. I have recommended orthotic therapy to help control the foot structure and reduced valgus stresses across the midfoot. Patient was dispensed power step orthotics today. I have recommended an ASO brace for stabilization and limitation of motion of the ankle and rearfoot. Patient agreed and was fitted for the appropriate brace. Goals of therapy include prevent further injury, reduced valgus instability of the hindfoot into increased ability to a hypermobile foot. Anticipated time of use - indefinite. At the time of dispensing it is suitable and not substandard. Patient is able to apply the brace independently. It is comfortable to walk and fits inside the shoe. I also discussed surgical reconstruction if conservative care is unsuccessful however she would be an extremely poor surgical candidate and would be best served with conservative management in my opinion. Recommend steroid taper to reduce symptomatology consistent with arthritis across the ankle. Discussed possibility of injections in the future. Follow up as needed. This note was created with the assistance of a speech recognition program. While intending to generate a timely document that accurately reflects the content of the visit, no guarantee can be provided that every grammatical or spelling mistake has been or will be identified or corrected. Thank you for your understanding. Sp Wan DPM documented in this encounter [facility] 12-30-2024 History of Present illness Narrative Images from the original note were not included. Chief complaint: Low back pain Subjective Aishwarya aHrtman, 64 y.o., female Patient present today for a neurologic consult at the request of Sisi Saravia CNP for sciatica. Patient states she has been having lower back pain which will radiate down her left leg. This has been going on for about a year. This is intermittent. She states standing for longer than 10 minutes or sitting for long for longer than 20 minutes make this worse. Patient ambulates with a walker. She states she uses this for some imbalance. She denies any falls. She admits weakness and fatigue in BLE. She takes Diclofenac 75 mg BID. For arthritis pain. Review of Systems Constitutional: Negative for appetite change, fatigue and fever. Respiratory: Negative for cough, shortness of breath and wheezing. Cardiovascular: Negative for chest pain, palpitations and leg swelling. Gastrointestinal: Negative for abdominal pain, constipation, diarrhea and nausea. Musculoskeletal: Positive for gait problem and myalgias. Negative for arthralgias. Neurological: Positive for weakness. Negative for dizziness, tremors, numbness and headaches. Past Medical History: Diagnosis Date Bipolar 1 disorder (CMS/HCC) Diabetes mellitus (CMS/HCC) Difficulty walking Gout Hypertension (CMS/HCC) Ingrown toenail Onychomycosis Thyroid disease (CMS/HCC) Past Surgical History: Procedure Laterality Date FINGER AMPUTATION Left LT MF DISTAL AMPUTATION PARTIAL HYSTERECTOMY TOTAL KNEE ARTHROPLASTY Right 2017 RT TKA- DR LUNDBERG Family History Problem Relation Name Age of Onset Parkinsonism Mother Coronary artery disease Father Social History Tobacco Use Smoking status: Every Day Types: Cigarettes Passive exposure: Past Smokeless tobacco: Never Substance Use Topics Alcohol use: Never Allergies: Amoxicillin, Lisinopril, and Talc Vitals: 12/30/24 1432 BP: 128/82 Pulse: 99 SpO2: 91% Body mass index is 51.25 kg/m . Weight: 245 lb 3.2 oz Neurologic exam: Mental status: Awake, alert to person, place and time. Recent and remote memory are intact. Language is fluent without aphasia. Attention and concentration are normal. Fund of knowledge is appropriate for level of education. Cranial nerves: CN II: Visual acuity is normal. Visual patton full to confrontation. CN III, IV, : pupils equal round and reactive to light. Extraocular movements intact. No ptosis present. CN V: Facial sensation is normal. CN VII: Full and symmetric facial movement. CN VIII: Hearing is normal to finger rub bilaterally: CN IX and X: Palate elevates symmetrically. CN XI: Shoulder shrug is normal bilaterally. CN XII: Tongue is midline without atrophy or fasciculation. Motor: RUE Strength deltoid, , biceps , triceps , wrist extensors , wrist flexor , chipper machine operator strength 5/5. LUE Strength deltoid , biceps , triceps , wrist extensors , wrist flexor , chipper machine operator strength 5/5. RLE Strength illopsoas, quadriceps, tibialis anterior, and gastrocnemius strength 5/5. LLE Strength illopsoas, quadriceps, tibialis anterior, and gastrocnemius strength 5/5. Normal tone x4 extremities. Bulk is normal. Sensory: Sensation is intact to light touch throughout Four extremities. Reflexes: RUE biceps reflex 2+ brachioradialis reflex 2+ . LUE biceps reflex 2+ brachioradialis reflex 2+ . RLE knee reflex 2+ . LLE knee reflex 2+ . Nolen's sign negative. Coordination: [id number] testing and rapid alternating movements are normal Gait: Normal Review and summary of old records: MRI of the lumbar spine on 08/06/2023: Moderate to severe canal stenosis at L3/4 and L4/5. Multilevel foraminal narrowing. Multilevel discogenic degenerative changes. Assessment/Plan Diagnoses and all orders for this visit: Degeneration of intervertebral disc of lumbar region with discogenic back pain and lower extremity pain It is my impression that the patient has pain and discomfort in the low back radiating into the bilateral lower extremities. She had an MRI of the lumbar spine in July of 2023 which clearly demonstrated moderate to severe canal stenosis at multiple levels with multilevel foraminal narrowing. It seem that the stenosis was worse at L3/4 and L4/5. She has trialed injection therapy with pain management, Dr. Bansal. She stated these injections were helpful. She was advised she could pursue ablation. She is very fearful of this and refuses to do ablation due to substantial pain she encounter when getting ablation of her knee done. Her examination does show gait instability and some subtle weakness, swelling and hyperreflexia in the lower extremities consistent with the patient's spine MRI. Plan: Physical therapy evaluation and treatment ongoing I did offer a referral for a neurosurgical opinion today given the symptoms, progression and previous imaging findings and failure of pain management. The patient has refused this understanding that further weakness could be debilitating and permanent if surgical intervention is not explored. She again has refused and states she only wants to do physical therapy to start and may consider surgical referral thereafter. Pt has been fully educated on their diagnosis, lab results, treatment options, follow up plan, and return instructions documented in this encounter [facility] 12-23-2024 History of Present illness Narrative Images from the original note were not included. Orthopedic Office note: NAME: Aishwarya Hartman : 1960 EST PT WITH FLARE UP LT ANKLE- PT NOTES A COUPLE FALLS IN THE LAST FEW MONTHS XRAY LT ANKLE/LT FOOT TODAY EPIC 12/23/24 PAIN LATERAL ANKLE- +SWELLING- SOME PAIN ACROSS MT REGION WELL- INCREASE PAIN WITH WB ACTIVITY- SYMPTOMS GET WORSE THE DAY GOES ON- USES WALKER OCCASIONALLY - +DICLOFENAC/TYLENOL Physical Exam General Appearance: Significant edema is noted in the left ankle and foot, symmetric in the bilateral lower legs with 2+ pitting. Respiratory: No acute distress Musculoskeletal: Mild chronic appearing ankle joint effusion, pes planus with hindfoot valgus, overgrown toenails without evidence of ulceration or infection, tenderness to the distal fibula involving the ATFL, mild soreness about the ankle joint, slight crepitus with anterior drawer and talar tilt without increase in pain, diffuse tenderness across the metatarsals on the dorsal aspect, no proximal fibular tenderness, no tenderness to the midfoot, no pain to the calcaneus, pain diffuse across the mid distal metatarsals. Skin: No evidence of skin injury. Neurological: Sensation appears grossly intact. Other observations: The patient does not have any calf tenderness or focal bony tenderness. Orders Placed This Encounter Procedures XR ankle 3+ views left Reason for exam:: PAIN XR foot 3+ views left Reason for exam:: pain Procedures Results - Imaging: - X-ray of bilateral knees on 11/19/2024: - No acute fracture or dislocation of the right or left knee - Right total knee arthroplasty with intact components - Moderate to severe osteoarthritis of the left knee with severe joint space narrowing medially - No effusion in the right or left knee joint - No radiopaque foreign body - Repeat bilateral knee x-ray on 12/21/2024: - No acute fracture, stable - Right total knee arthroplasty - Degenerative changes of the left knee - Imaging: - X-ray of bilateral knees: Reviewed ICD-10-CM 1. Acute left ankle pain M25.572 XR ankle 3+ views left 2. Left foot pain M79.672 XR foot 3+ views left 3. Arthritis of left ankle M19.072 4. Bilateral leg edema R60.0 Assessment & Plan Left ankle pain: X-rays were discussed at bedside. Pes planus, consistent use of moccasins, and advanced ankle arthritis were noted. Potential ATFL ankle sprain was considered; however, recent events at home may have exacerbated the ankle arthritis. Due to the present edema, ASO application will be withheld as long-term bracing options may be needed given the advanced arthritic changes. Ice and elevation will be the focus. Contact with the laboratory technology teacher for ongoing nail care and to discuss long-term treatment options for ankle arthritis is recommended. Social status: Currently safe at home as her daughter, who suffers from mental health illness, has been placed in police custody. She does not intend to have her daughter home again due to her mental health history and has filed a protection order. Expresses gratitude and has no other concerns or questions regarding her social status. Questions answered in laymen terms at the bedside. The diagnosis, home exercise plan and any ongoing restrictions/ recommendations reviewed. If unable to be reached in office, I recommend evaluation at nearest Emergency Room if any symptoms worsened or new symptoms develop for requiring urgent evaluation. Visit was preformed using [email or web address] Co-ship pilot dispatcher speech recognition. documented in this encounter [facility] 04-06-2024 History of Present illness Narrative Images from the original note were not included. HISTORY OF PRESENT ILLNESS: EST PT Aishwarya Hartman is an 64 y.o. @ female. (EST PT) NEW COMPLAINT, (R) BUTTOCK DISCOMFORT. SYMPTOMS FOR ~10 DAYS ; DENIES ANY INJURY XRAYS DONE TODAY, 04/06/24 IN EPIC PAIN MGMT - DR BANSAL ; (L) KNEE / LBP / SI JOINT PAIN ; STATES I'M NOT GOING BACK THERE. NOTES INTERMITTENT DISCOMFORT - STATES IT FEELS LIKE I'M SITTING ON A ROCK ; ALSO NOTES DISCOMFORT WITH MOVEMENT / BENDING / GOING DOWN THE STAIRS. PAIN IS LOCATED IN HER LOWER (R) BUTTOCK ; DENIES ANY RADIATING PAIN, NO N/T. NOTED LIMITED ROM ; SOME WEAKNESS - USING CANE TO AMBULATE. TAKING NAPROXEN 500MG BID / TYLENOL 500MG PRN - DENIES ANY RELIEF. ALLERGIES: Allergies Allergen Reactions Amoxicillin Other Other Reaction(s): yeast infection Lisinopril Rash Talc Rash HOME MEDICATIONS: Current Outpatient Medications Medication Instructions b complex vitamins capsule 1 capsule, Oral, Daily Geodon 80 mg, Oral, Every 12 hours irbesartan (AVAPRO) 150 mg, Oral, Daily RT levothyroxine (SYNTHROID, LEVOXYL) 150 mcg, Oral, Daily before breakfast MAGNESIUM PO 500 mg, Oral naproxen (EC NAPROSYN) 500 mg, Oral, 2 times daily nortriptyline (PAMELOR) 50 mg, Oral, Nightly omeprazole (PRILOSEC) 40 mg, Oral, 2 times daily pyridostigmine (Mestinon) 30 MG tablet Every 8 hours traZODone (DESYREL) 50 mg, Oral, Every 24 hours Trelegy Ellipta 100-62.5-25 MCG/ACT aerosol powder 1 puff, Inhalation, Daily RT triamcinolone (Kenalog) 0.1 % cream 1 application , Topical, 2 times daily ziprasidone (GEODON) 20 mg, Oral PHYSICAL EXAM: Hip Musculoskeletal Exam Gait Antalgic: right Limp: right Assistive device: cane Inspection Leg length disparity: no discrepancy Right Erythema: none Ecchymosis: none Edema: none Deformity: none Palpation Right Right hip palpation is normal. Increased warmth: none Tenderness: present ((R) buttock/ piriformis) Lower lumbar region pain: mild Left Tenderness: present Lower lumbar region pain: mild Range of Motion Right Right hip range of motion is within functional limits. Active ROM: normal. Passive ROM: normal. Strength Right Right hip strength is normal. Extension: 5/5. Flexion: 5/5. Internal rotation: 5/5. External rotation: 5/5. Adduction: 5/5. Abduction: 5/5. Neurovascular Right Right hip neurovascular exam is normal. Pulses - PT: normal Posterior tibial: 2+ Special Tests Right Log roll test: negative MEAGAN test (right): negative Special tests additional comments: + pain right buttock with piriformis stretching.. improved with repeated stretching. No deformity to proximal hamstring. Neg Fadir . Neg SLR for radiculopathy General Constitutional: appears stated age Labored breathing: no Psychiatric: normal mood and affect Neurological: alert and oriented x3 Skin: intact Lymphadenopathy: none Vitals: There is no height or weight on file to calculate BMI. Tobacco Use: High Risk (04/06/2024) Patient History Smoking Tobacco Use: Every Day Smokeless Tobacco Use: Never Passive Exposure: Past Alcohol Use: Not on file IMAGING: XR hip right 2 or 3 views Imaging Result: Procedures Orders Placed This Encounter Procedures XR hip right 2 or 3 views Order Specific Question: Reason for exam: Answer: PAIN ASSESSMENT: ICD-10-CM 1. Right hip pain M25.551 XR hip right 2 or 3 views 2. Piriformis syndrome, right G57.01 PLAN: Difficulty with ambulation secondary to OA bilateral knee. Recommend aquatic therapy.. piriformis stretches.. pt declines pain management and denies need for formal therapy,, would like to do stretches and home and work on pool exercises on her own.. recommend smoking cessation and cont weight loss ( healthy) pt will call if symptoms persist or worsen.. Questions answered in laymen terms at the bedside. The diagnosis, home exercise plan and any ongoing restrictions/ recommendations reviewed. If unable to be reached in office, I recommend evaluation at nearest Emergency Room if any symptoms worsened or new symptoms develop for requiring urgent evaluation. documented in this encounter [facility] 04-02-2024 History of Present illness Narrative Subjective Aishwarya Hartman is a 64 y.o. female Chief Complaint Follow-up HPI Patient is here for follow-up to address recent complaint of increasing chest pain. She has not been seen in a few years. I have seen her in the past for similar issues and remote stress test was negative. Patient describe mainly nocturnal chest pain. She describes some dyspepsia. She admit to very limited exercise tolerance due to arthritis. She continues to smoke. She denies lightheadedness, dizziness or syncope. She describes lots of fatigue and tiredness and intermittent lower extremity edema. Assessment 1. Recurrent chest pain appears atypical mainly nocturnal likely due to gastroesophageal reflux disease however the patient had numerous risk factor for ischemic heart disease 2. Hypertension controlled 3. Hyperlipidemia on treatment no recent lab available 4 Sleep apnea using CPAP 5. Morbid obesity 6. Tobacco use and COPD 7.. Diabetes mellitus 8. Intermittent palpitation 9. Exertional shortness of breath due to morbid obesity and tobacco use 10. Dyspepsia Plan 1. I advised the patient to take Prilosec 40 mg once daily 2. I advised the patient to have a Lexiscan myocardial fusion study 3. I advised her to stop smoking 4. I discussed with patient the importance of aggressively addressing her risk factors including losing weight, exercise, following healthy heart Diet. I counseled him regarding salt restriction 6. Follow-up after testing is done Review of Systems Constitutional: Positive for malaise/fatigue. Cardiovascular: Positive for chest pain, irregular heartbeat, leg swelling and palpitations. Respiratory: Positive for shortness of breath. Neurological: Positive for dizziness and light-headedness. All other systems reviewed and are negative. Vitals: 04/02/24 1505 BP: 110/64 BP Location: Left arm Patient Position: Sitting Pulse: 88 Weight: 104 kg (229 lb) Height: 1.473 m (4' 10 ) Objective Physical Exam Constitutional: Appearance: Normal appearance. HENT: Nose: Nose normal. Neck: Vascular: No carotid bruit. Cardiovascular: Rate and Rhythm: Normal rate. Pulses: Normal pulses. Heart sounds: Normal heart sounds. Pulmonary: Effort: Pulmonary effort is normal. Abdominal: General: Bowel sounds are normal. Palpations: Abdomen is soft. Musculoskeletal: General: Normal range of motion. Cervical back: Normal range of motion. Right lower le+ Edema present. Left lower le+ Edema present. Skin: General: Skin is warm and dry. Neurological: General: No focal deficit present. Mental Status: She is alert. Psychiatric: Mood and Affect: Mood normal. Behavior: Behavior normal. Thought Content: Thought content normal. Judgment: Judgment normal. Allergies Gabapentin, [place], Lyrica [pregabalin], and Doxycycline Current Medications Current Outpatient Medications: acetaminophen (Tylenol) 500 mg tablet, Take 1 tablet (500 mg) by mouth 2 times a day., Disp: , Rfl: allopurinol (Zyloprim) 300 mg tablet, Take 1 tablet (300 mg) by mouth once daily., Disp: , Rfl: azelastine (Optivar) 0.05 % ophthalmic solution, INSTILL 1 DROP INTO AFFECTED EYE TWICE A DAY, Disp: , Rfl: b complex 0.4 mg tablet, Take 1 tablet by mouth once daily., Disp: , Rfl: cetirizine (ZyrTEC) 10 mg tablet, Take 1 tablet (10 mg) by mouth once daily., Disp: , Rfl: cholecalciferol (Vitamin D3) 25 MCG (1000 UT) capsule, Take 1 capsule (25 mcg) by mouth once daily., Disp: , Rfl: fluticasone (Flonase) 50 mcg/actuation nasal spray, Administer 1 spray into each nostril once daily., Disp: , Rfl: hydroCHLOROthiazide (HYDRODiuril) 25 mg tablet, Take 1 tablet (25 mg) by mouth once daily., Disp: , Rfl: irbesartan (Avapro) 150 mg tablet, Take 1 tablet (150 mg) by mouth once daily., Disp: , Rfl: levothyroxine (Synthroid, Levoxyl) 150 mcg tablet, Take 1 tablet (150 mcg) by mouth once daily in the morning. Take before meals., Disp: , Rfl: magnesium 250 mg tablet, Take 1 tablet (250 mg) by mouth early in the morning.., Disp: , Rfl: naproxen (EC Naprosyn) 500 mg EC tablet, Take 1 tablet (500 mg) by mouth 2 times a day. Do not crush, chew, or split., Disp: , Rfl: nortriptyline (Pamelor) 50 mg capsule, Take 1 capsule (50 mg) by mouth once daily at bedtime., Disp: , Rfl: omega 8-oqt-dip-fish oil (Fish OiL) 1,200 (144-216) mg capsule, Take 1 capsule (1,200 mg) by mouth early in the morning.., Disp: , Rfl: omeprazole (PriLOSEC) [address] capsule, Take 1 capsule (40 mg) by mouth 2 times a day., Disp: , Rfl: traZODone (Desyrel) 50 mg tablet, TAKE 2 TABLETS BY MOUTH EVERY DAY AT BEDTIME NEEDED FOR SLEEP, Disp: , Rfl: Trelegy Ellipta 100-62.5-25 mcg blister with device, Inhale 1 puff once daily., Disp: , Rfl: turmeric root extract 500 mg capsule, Take 1 capsule by mouth early in the morning.., Disp: , Rfl: vitamin K2 180 mcg capsule, Take 1 capsule by mouth early in the morning.., Disp: , Rfl: ziprasidone (Geodon) 20 mg capsule, 1 capsule (20 mg) early in the morning.., Disp: , Rfl: ziprasidone (Geodon) 80 mg capsule, Take 1 capsule (80 mg) by mouth once daily at bedtime., Disp: , Rfl: Assessment/Plan 1. Chest pain, unspecified type Follow Up In Cardiology Nuclear Stress Test 2. Essential hypertension 3. Hyperlipidemia, unspecified hyperlipidemia type 4. Sleep apnea, unspecified type 5. Chronic obstructive pulmonary disease, unspecified COPD type (Multi) 6. Diabetes mellitus type II, non insulin dependent (Multi) 7. Palpitations 8. BMI 45.0-49.9, adult (Multi) 9. Current smoker Scribe Attestation By signing my name below, I, Cecilia Islas RN , Scribe attest that this documentation has been prepared under the direction and in the presence of Noman Henriquez MD. Provider Attestation - Scribe documentation All medical record entries made by the Scribe were at my direction and personally dictated by me. I have reviewed the chart and agree that the record accurately reflects my personal performance of the history, physical exam, discussion and plan. documented in this encounter [facility] Work Phone: 04-02-2024 Instructions Cecilia Mata RN - 04/02/2024 2:40 PM EDT Please bring all medicines, vitamins, and herbal supplements with you when you come to the office. Prescriptions will not be filled unless you are compliant with your follow up appointments or have a follow up appointment scheduled as per instruction of your physician. Refills should be requested at the time of your visit. BMI was above normal measurement. Current weight: 104 kg (229 lb) Weight change since last visit (-) denotes wt loss -17 lbs Weight loss needed to achieve BMI 25: 109.6 Lbs Weight loss needed to achieve BMI 30: 85.8 Lbs Provided instructions on dietary changes Provided instructions on exercise Take omeprazole every day for 6 weeks . documented in this encounter [facility] Work Phone: 09-17-2023 Evaluation note Encounter Date Diagnosis Assessment Notes Aug, Primary localized osteoarthrosis of the knee, left (ICD-10 - M17.12) 63 year old female here for follow up status post left superior medial, superior lateral and inferior medial genicular nerve blocks under fluoroscopic guidance. Patient reports 70-80% pain relief for 4-6 hours following the procedure. She voices continued complaints of pain to the left knee today, as expected. I recommend proceeding with a left genicular RFA. Risks and benefits of procedure explained to patient; patient verbalizes understanding. Aug, Other chronic pain (ICD-10 - G89.29) Continue with current treatment plan. Aug, Left knee pain (ICD-10 - M25.562) Proceed with treatment plan and follow up after procedure. [employer] [facility] Encounter Date Diagnosis Assessment Notes Treatment Notes Treatment Clinical Notes Jul, Primary localized osteoarthrosis of the knee, left (ICD-10 - M17.12) 63 year old female here for follow up status post left superior medial, superior lateral and inferior medial genicular nerve blocks under fluoroscopic guidance. Patient reports 75-80% pain relief for 1 day following procedure. She voices continued complaints of left knee pain today as expected. Different treatment options were discussed in detail with the patient and I recommed we proceed with a confirmatory left genicular nerve block under fluoroscopic guidance. Risks and benefits of procedure explained to patient; patient verbalizes understanding. Jul, Sacroiliitis (ICD-10 - M46.1) If her pain persists or worsens, we can consider sacroiliac joint injections in the future. Jul, Other chronic pain (ICD-10 - G89.29) Continue with current treatment plan. [employer] Other 11-21-2023 Evaluation note* Encounter Date Diagnosis Assessment Notes Treatment Notes Treatment Clinical Notes Jun, Low back pain, unspecified back pain laterality, unspecified chronicity, unspecified whether sciatica present (ICD-10 - M54.50) I encouraged the patient to start physical therapy for exercises and stretches to achieve the maximum ability to perform daily activities and movements while managing her pain. If her pain persists or worsens, we can consider interventional options in the future. In the meantime, we can proceed with updated imaging of the lumbar spine to further evaluate her pain. Jun, Primary localized osteoarthrosis of the knee, left (ICD-10 - M17.12) 63 year old female here with complaints of left knee pain which started many years ago with no known inciting trauma. She denies any prior physical therapy or surgery for the knee. She also voices complaints of low back and right hip pain. She is continuing with orthopedic surgery for this however she states she needs to have a lower BMI to proceed with surgical intervention. She feels her pain is negatively impacting her activities of daily living. Prior to examining the patient, I independently reviewed office notes from referring provider, Erika Orosco. Clinically, her symptoms are consistent with sacroilitis, arthritis of the lumbar spine and arthritis of the left knee joint. Different treatment options were discussed in detail with patient in regards to patients condition. I recommend we proceed with a left genicular nerve block under fluoroscopic guidance. Risks and benefits of procedure explained to patient; patient verbalizes understanding. Jun, Sacroiliitis (ICD-10 - M46.1) If her pain persists or worsens, we can consider sacroiliac joint injections in the future. Jun, Pain, joint, knee, left (ICD-10 - M25.562) Patient states she has had many steroid injections to the left knee in the past as well as visco gel injections with minimal relief. If her pain persists or worsens, we can consider proceeding with a genicular nerve NB followed by RFA in the future, if applicable. In the meantime, she is encouraged to proceed with updated imaging of the left knee to further evaluate her pain. Jun, Other chronic pain (ICD-10 - G89.29) Continue with current treatment plan. Jun, Other Medical deci stephanie making shows a new problem to me with further workup planned or suggested with the potential for extensive treatment options that were considered with the most applicable given this patient's situation as noted above. Treatment options considered include a combination of physical therapy approaches, pharmacologic management, and interventional procedures. Those most applicable to the patient were discussed at this time. Risk of complications and/or morbidity and mortality is high given that acute and chronic pain poses a threat to life and bodily function if undertreated, poorly treated or with failure to maintain adequate treatment and timely followup. Given the serious and fluctuating nature of pain with extensive consideration for whenever pain changes, there always remains the possibility of prolonged functional impairment requiring constant patient reassessment and high-level medical decision making. The amount and complexity of data reviewed is high given that patient labs, radiology reports, and other test were obtained, reviewed and summarized as applicable from the physician portal and/or outside medical records. Pertinent positive and negative findings were considered in medical decision-making. [facility] Other 10-09-2023 Evaluation note* Encounter Date Diagnosis Assessment Notes Treatment Notes Treatment Clinical Notes May, Type 2 diabetes mellitus with unspecified complications (ICD-10 - E11.8) May, BMI 50.0-59.9, adult (ICD-10 - Z68.43) May, Constipation (ICD-10 - K59.00) May, Hypoglycemia (ICD-10 - E16.2) May, Hypertension (ICD-10 - I10) May, Knee osteoarthritis (ICD-10 - M17.9) May, Obstructive sleep apnea (ICD-10 - G47.33) May, Mixed hyperlipidemia (ICD-10 - E78.2) May, Metabolic syndrome X (ICD-10 - E88.81) May, Hypothyroidism (ICD-10 - E03.9) May, COPD (chronic obstructive pulmonary disease) (ICD-10 - J44.9) [facility] Other 07-06-2023 Evaluation note* Encounter Date Diagnosis Assessment Notes Treatment Notes Treatment Clinical Notes Feb, Type 2 diabetes mellitus with unspecified complications (ICD-10 - E11.8) Feb, BMI 50.0-59.9, adult (ICD-10 - Z68.43) Feb, Constipation (ICD-10 - K59.00) Feb, Hypoglycemia (ICD-10 - E16.2) Feb, Hypertension (ICD-10 - I10) Feb, Knee osteoarthritis (ICD-10 - M17.9) Feb, Obstructive sleep apnea (ICD-10 - G47.33) Feb, Mixed hyperlipidemia (ICD-10 - E78.2) Feb, Metabolic syndrome X (ICD-10 - E88.81) Feb, Hypothyroidism (ICD-10 - E03.9) Feb, COPD (chronic obstructive pulmonary disease) (ICD-10 - J44.9) [facility] Other 02-22-2023 Evaluation note* Encounter Date Diagnosis Assessment Notes Treatment Notes Treatment Clinical Notes Sep, Dysphagia (ICD-10 - R13.10) Sep, Vomiting (ICD-10 - R11.10) Sep, Acid reflux (ICD-10 - K21.9) [facility] Other 02-09-2023 Evaluation note* Encounter Date Diagnosis Assessment Notes Treatment Notes Treatment Clinical Notes Sep, Osteoarthritis of left knee, unspecified osteoarthritis type (ICD-10 - M17.12) [facility] Other 01-19-2023 Evaluation note* Encounter Date Diagnosis Assessment Notes Treatment Notes Treatment Clinical Notes Aug, Obesity (ICD-10 - E66.9) Aug, BMI 50.0-59.9, adult (ICD-10 - Z68.43) Aug, Other Summary of Visi t: (A) reviewed meal timing and reasons to avoid meal skipping. Discussed meal / snack ideas (B) discussed benefits of physical activity and ideas for continuing and overcoming barriers (C) reviewed plate method and discussed ways to create balance for common meals (D) encouraged choosing smaller portions of chocolate or desserts and pairing with a nutrient dense food Patient set the following goals: NEW: start pool aerobics class next week [facility] Other 12-08-2022 Evaluation note* Encounter Date Diagnosis Assessment Notes Treatment Notes Treatment Clinical Notes Jul, Type 2 diabetes mellitus with unspecified complications (ICD-10 - E11.8) Jul, BMI 50.0-59.9, adult (ICD-10 - Z68.43) Jul, Constipation (ICD-10 - K59.00) Jul, Hypoglycemia (ICD-10 - E16.2) Jul, Hypertension (ICD-10 - I10) Jul, Knee osteoarthritis (ICD-10 - M17.9) Jul, Obstructive sleep apnea (ICD-10 - G47.33) Jul, Mixed hyperlipidemia (ICD-10 - E78.2) Jul, Metabolic syndrome X (ICD-10 - E88.81) Jul, Hypothyroidism (ICD-10 - E03.9) Jul, COPD (chronic obstructive pulmonary disease) (ICD-10 - J44.9) [facility] Other 11-30-2022 Evaluation note* Encounter Date Diagnosis Assessment Notes Treatment Notes Treatment Clinical Notes Jun, Obesity, unspecified classification, unspecified obesity type, unspecified whether serious comorbidity present (ICD-10 - E66.9) Jun, BMI 50.0-59.9, adult (ICD-10 - Z68.43) Jun, Other Summary of Visi t: (A) Presentation of Plate Method discussed (B) Sample meal ideas reviewed (C) exercise recommendations reviewed Patient set the following goals: - patient set personal goal using given handout. [facility] Other 11-05-2022 Progress note Author Piper Tate [facility] June 23, 2022 1:23pm Note Date/Time June 23, 2022 1 :23pm [facility] [address] [place] [address] Hospitalist Progress Note Signed Patient: Aishwarya Hartman MR#: [id number] : 1960 Acct:[id number] Age/Sex: 62 / F Adm Date: 2 Loc: Room: 4I0608-0 Type: ADM IN Attending Dr: Piper Tate MD Copies to: ~ Date of Service: 06/23/2022 Subjective Subjective Narrative: Patient has been seen and examined today. She is doing better. She is sitting in the chair. Still complains of some pain under the left shoulder with coughing, but coughing decreased. Shortness of breath improved. She remains onroom air. Physical exam: General -awake, alert, oriented ?3, not in acute distress Cardiovascular -S1 with S2, no murmurs, no rubs, no gallops Pulmonary -rhonchi bilaterally Gastrointestinal - abdomen is soft, nondistended, nontender, bowel sounds positive, there is no rigidity, no rebound Extremities -no edema Neurological -no focal neurological dysfunction noted Exam Physical Exam Vital Signs: Temp Pulse Resp BP Pulse Ox O2 Del Method O2 Flow Rate 36.4 C 91 H 22 125/72 100 Room Air 3 06/23/22 07:47 06/23/22 12:45 06/23/22 12:45 06/23/22 10:51 06/23/22 10:51 06/23/22 10:51 06/22/22 20:00 Objective Lab Results CBC & Chem 7: 06/23/22 06:41 06/23/22 08:08 Microbiology Results Microbiology 06/23/22 10:55 Sputum - Expectorated Gram Stain - Final 06/22/22 15:27 Blood - Left Antecubital Blood Culture - Preliminary Staphylococcus epidermidis 06/22/22 15:27 Blood - Left Antecubital Bacterial ID (NA Multiplex Assay) - Final 06/22/22 16:12 Nasal SARS Antigen (LFIA) - Final Meds Allergies and Active Meds Allergies No Known Allergies Allergy (Verified 06/22/22 12:06) Active Meds: Active Medications Generic Name Dose Route Start Last Admin Trade Name Freq PRN Reason Stop Dose Admin Acetaminophen 650 mg 06/22/22 17:30 06/23/22 03:03 Acetaminophen 325 Mg Tablet PO 06/22/23 17:29 650 mg Q4H PRN Administration Pain Scale 1 - 5 Albuterol 2.5 mg 06/22/22 17:30 Albuterol Neb 2.5 Mg/3 Ml Vial.Neb INHALATION 06/22/23 17:29 Q2H PRN Shortness Of Breath Albuterol/Ipratropium 3 ml 06/22/22 20:00 06/23/22 12:45 Ipratropium/Albuterol 0.5-3 Mg 3 Ml Ampul.Neb INHALATION 06/22/23 19:59 3 ml QID.RESP VELASQUEZ Administration Budesonide 0.5 mg 06/22/22 21:00 06/23/22 08:04 Budesonide 0.5 Mg/2 Ml Ampul.Neb INHALATION 06/22/23 20:59 0.5 mg BID VELASQUEZ Administration Docusate Sodium 200 mg 06/22/22 17:30 Docusate 100 Mg Capsule PO 06/22/23 17:29 BID PRN Constipation Enoxaparin Sodium 40 mg 06/23/22 10:00 06/23/22 10:50 Enoxaparin 40 Mg/0.4 Ml Syringe SUBCUT 06/23/23 09:59 40 mg DAILY@1000 VELASQUEZ Administration Famotidine 20 mg 06/23/22 09:00 06/23/22 08:51 Famotidine 20 Mg Tablet PO 06/23/23 08:59 20 mg DAILY VELASQUEZ Administration Fluticasone Propionate 2 spray 06/23/22 09:00 06/23/22 08:51 Fluticasone Propionate [place] 120 [place]/16 Gm Bottle INTRANASAL 06/23/23 08:59 2 spray DAILY VELASQUEZ Administration Guaifenesin 1,200 mg 06/22/22 21:00 06/23/22 08:51 Guaifenesin 600 Mg Tab.Er.12h PO 06/22/23 20:59 1,200 mg BID VELASQUEZ Administration Hydralazine HCl 10 mg 06/22/22 17:30 Hydralazine 20 Mg/Ml Vial IV-PUSH 06/22/23 17:29 Q4H PRN if SBP > 185 Ceftriaxone Sodium 1 gm in 50 mls @ 100 mls/hr 06/23/22 17:30 Rocephin IV Q24H VELASQUEZ Azithromycin 500 mg in 250 mls @ 250 mls/hr 06/23/22 18:00 Zithromax IV Q24H [facility] Potassium Chloride/Sodium Chloride 1,000 mls @ 75 mls/hr 06/22/22 17:30 06/23/22 08:51 0.9 % Nacl-20 Meq Kcl IV 06/22/23 17:29 75 mls/hr .[id number] VELASQUEZ Administration Levothyroxine Sodium 150 mcg 06/23/22 06:30 06/23/22 06:34 Levothyroxine 150 Mcg Tablet PO 06/23/23 06:29 150 mcg DAILY@0630 VELASQUEZ Administration Methylprednisolone Sodium Succinate 40 mg 06/22/22 21:00 06/23/22 08:51 Methylprednisolone Sod Succ/Pf 40 Mg/Ml (1ml) Vial IV-PUSH 06/22/23 20:59 40 mg Q12HR VELASQUEZ Administration Nortriptyline HCl 50 mg 06/22/22 22:00 06/22/22 21:25 Nortriptyline 25 Mg Capsule PO 06/22/23 21:59 50 mg HS VELASQUEZ Administration Ondansetron HCl 4 mg 06/22/22 17:30 Ondansetron 4 Mg/2 Ml Vial IV-PUSH 06/22/23 17:29 Q6H PRN Nausea And Vomiting Oxycodone/Acetaminophen 1 tab 06/22/22 17:30 06/22/22 22:16 Oxycodone/Acetaminophen 5-325 Mg Tablet PO 1 tab Q4H PRN Administration pain Sodium Chloride 0 ml 06/22/22 12:05 06/23/22 08:51 Sodium Chloride 0.9 % 10 Ml Syringe IV-PUSH 06/22/23 12:04 10 ml PRN PRN Administration Flush Ziprasidone 20 mg 06/24/22 09:00 Ziprasidone 20 Mg Capsule PO 06/24/23 08:59 QAM VELASQUEZ Ziprasidone 80 mg 06/23/22 22:00 Ziprasidone 80 Mg Capsule PO 06/23/23 21:59 HS VELASQUEZ A&P - Hospitalist Assessment/Plan (1) Pneumonia: (2) Sepsis: Plan 1. Community-acquired pneumonia with sepsis seems to be improving Her leukocytosis was noted to be worse but clinically patient is doing better Rocephin and azithromycin Mucinex Sputum cultures pending 2. Hypovolemic hyponatremia, probably from dehydration, Improved with IV fluid 3. Mild acute kidney injury, probably prerenal, improved with hydration 4 DVT prophylaxis Lovenox 5. Dysphagia, patient admitted sometimes she has a chest choking or feeling that the food is stuck in her chest but mainly with liquids suspicious more of functional spasm rather than structural disorder. She denies any choking sensation or food sticking in her chest to solid food She denies any change in weight, she denies any poor appetite to suspect malignancy. Documented By: Piper Tate MD 06/23/221320 Signed By: <Electronically signed by Piper Tate MD> 06/23/221322 [facility] Work Phone: 1(116) 344-363711-05-2022 History and physical note Author Piper Tate [facility] June 23, 2022 1:21pm Note Date/Time June 22, 2022 5 :27pm [facility] [address] [place] [address] Hospitalist H&P Signed Patient: Aishwarya Hartman MR#: [id number] : 1960 Acct:[id number] Age/Sex: 62 / F Adm Date: 2 Loc: Room: [address] [place] [address] Type: ADM IN Attending Dr: Piper Tate MD Copies to: Sisi Saravia, [employer] Piper Tate MD~ HPI DATE OF EXAMINATION: 06/22/22 CHIEF COMPLAINT: Shortness of breath/cough HISTORY OF PRESENT ILLNESS: 62 years old female with underlying COPD, not on home oxygen, smoker, presented with complaint of shortness of breath for about 5 days. She was complaining of some fevers, cough with sputum production but unsure of color, wheezing, chest pain with coughing and back pain and cough headaches. She sure she had COVID infection. She denies any nausea any vomiting. She complains of constipation. But denies any abdominal pain. Denies any dysuria urgency frequency. Denies any lower extremity swelling. Review of Systems Review of Systems Review of systems: 10 systems are reviewed and are negative apart what is mentioned in H&P General -patient is awake alert oriented ?3, appears to be in mild distress, with frequent coughing HEENT -normal oropharyngeal mucosa without any ulcers or exudates Cardiovascular -S1 plus S2, cardia but no murmurs Pulmonary -rhonchi bilaterally Gastrointestinal -abdomen is soft, nondistended, nontender, bowel sounds positive, no rigidity, no rebound Genitourinary - Musculoskeletal -no back tenderness, no significant joint swelling, full range of motion Neurological -no focal Skin -no significant ulcers, no rash noted Extremities - no edema in bilateral lower extremities noted Psychiatry - appropriate affect Laboratory work up, imaging studies reviewed EKG personally reviewed by me, normal sinus rhythm without acute ST-T wave changes Previous records in the computer system reviewed Chest x-ray - Right middle lobe volume loss and consolidation with potential loculated pleural fluid in the minor fissure PMFSH Vaccinated for COVID-19?: Yes Medical History (Updated 06/22/22 @ 17:42 by Lula Deutsch RN) Bipolar depression COPD (chronic obstructive pulmonary disease) Schizophrenia Family History (Updated 06/22/22 @ 17:44 by Lula Deutsch RN) Father Heart attack Grandparent Heart attack Diabetes Mother Parkinsons disease Social History Smoking Status: Current every day smoker Substance Use Type: None Meds Medications and Allergies Allergies No Known Allergies Allergy (Verified 06/22/22 12:06) Home Medications albuterol sulfate 90 mcg/actuation aerosol inhaler (Ventolin HFA) 2 puff inhalation Q4H PRN Shortness Of Breath 06/22/22 [History Confirmed 06/22/22] diclofenac sodium 75 mg tablet,delayed release 75 mg PO BID 06/22/22 [History Confirmed 06/22/22] fluticasone propionate 50 mcg/actuation nasal spray,suspension 2 spray intranasal DAILY 06/22/22 [History Confirmed 06/22/22] irbesartan 150 mg tablet 150 mg PO BID 06/22/22 [History Confirmed 06/22/22] ketoconazole 2 % topical cream 1 applic topical DAILY PRN Rash 06/22/22 [History Confirmed 06/22/22] levothyroxine 150 mcg tablet 150 mcg PO DAILY 06/22/22 [History Confirmed 06/22/22] nortriptyline 50 mg capsule 50 mg PO HS 06/22/22 [History Confirmed 06/22/22] polyethylene glycol 3350 17 gram/dose oral powder (Miralax) 4 g PO DAILY PRN Constipation 06/22/22 [History Confirmed 06/22/22] semaglutide 1 mg/dose (4 mg/3 mL) subcutaneous pen injector (Ozempic) 1 mg subcut 2XW 06/22/22 [History Confirmed 06/22/22] ziprasidone HCl 20 mg capsule 20 mg PO QAM 06/22/22 [History Confirmed 06/22/22] ziprasidone HCl 80 mg capsule 80 mg PO HS 06/22/22 [History Confirmed 06/22/22] Exam Physical Exam Vital Signs: Temp Pulse Resp BP Pulse Ox O2 Del Method 38.2 C H 94 H 22 124/60 96 Room Air 06/22/22 15:05 06/22/22 12:11 06/22/22 12:11 06/22/22 12:11 06/22/22 12:11 06/22/22 12:11 Results Lab Results Labs: Laboratory Last Values Corrected WBC 16.5 X10E3/uL (3.8-11.6) H 06/22/22 15:27 Uncorrected WBC Count 16.5 x10E3/uL (4.5-11.0) H 06/22/22 15: RBC 4.70 x10E6/uL (3.60-5.00) 06/22/22 15: Hgb 13.9 g/dL (11.8-15.4) 06/22/22 15: Hct 42.4 % (34.0-46.4) 06/22/22 15: MCV 90.2 fl (80-100) 06/22/22 15: MCH 29.5 pg (24.7-34.3) 06/22/22 15: MCHC 32.7 g/dL (32.0-35.0) 06/22/22: RDW 14.4 % (11.9-15.3) 06/22/22 15: Plt Count 193 x10E3/uL (150-450) 06/22/22 15: MPV 9.6 fl (6.3-10.7) 06/22/22 15: Neut % (Auto) 88.9 % (.) 06/22/22 15: Lymph % (Auto) 4.1 % (.) 06/22/22: [place] % (Auto) 6.7 % (.) 06/22/22: Eos % (Auto) 0.1 % (.) 06/22/22: Baso % (Auto) 0.2 % (.) 06/22/22: Neut # (Auto) 14.7 x10E3/uL (1.8-7.7) H 06/22/22 15: Lymph # (Auto) 0.7 x10E3/uL (1.00-4.8) L 06/22/22 15: [place] # (Auto) 1.1 x10E3/uL (0.0-0.8) H 06/22/22 15: Eos # (Auto) 0.0 x10E3/uL (0.0-0.45) 06/22/22 15: Baso # (Auto) 0.0 x10E3/uL (0.0-0.2) 06/22/22 15: Nucleated RBC % (auto) 0.1 % (0-0.5) 06/22/22 15:27 PHA Creatinine Clear 52.28 06/22/22 15:27 Sodium 125 mmol/L (136-146) L 06/22/22 15: Potassium 3.6 mmol/L (3.5-5.1) 06/22/22 15:27 Chloride 90 mmol/L (95-114) L 06/22/22 15:27 Carbon Dioxide 22.6 mmol/L (22.0-30.0) 06/22/22 15: Anion Gap 16.0 mEq/L (6.0-15.0) H 06/22/22 15:27 BUN 24 mg/dL (9-23) H 06/22/22 15:27 Creatinine 1.28 mg/dL (0.44-1.03) H 06/22/22 15:27 Est GFR ( Amer) 51 mL/Min 06/22/22 15: Est GFR (Non-Af Amer) 42 mL/Min 06/22/22 15:27 Glucose 112 mg/dL (70-100) H 06/22/22 15:27 Lactic Acid 2.0 mmol/L (0.5-2.2) H* 06/22/22 15:27 Calcium 9.6 mg/dL (8.2-10.2) 06/22/22 15: Total Bilirubin 1.3 mg/dL (0.3-1.2) H 06/22/22 15:27 AST 17 U/L (10-42) 06/22/22 15: ALT 33 U/L (10-60) 06/22/22 15:27 Alkaline Phosphatase 148 U/L (32-92) H 06/22/22 15:27 Troponin I High Sens 13 pg/mL (0-15) 06/22/22 15:27 B-Natriuretic Peptide 104.0 pg/mL (5-100) H 06/22/22 15:27 Total Protein 7.2 gm/dL (6.1-7.9) 06/22/22 15:27 Albumin 3.3 gm/dL (3.2-5.5) 06/22/22 15:27 Globulin 3.9 gm/dL 06/22/22 15:27 Albumin/Globulin Ratio 0.8 06/22/22 15:27 COVID-19 PCR Interp N/A 06/22/22 16:12 SARS Antigen (LFIA) Negative (Negative) 06/22/22 16:12 Microbiology Results Micro: Microbiology - Results from entire visit 06/22/22 16:12 Nasal SARS Antigen (LFIA) - Final A&P - Hospitalist Assessment/Plan (1) Pneumonia: (2) Sepsis: Plan 1. Community-acquired pneumonia with sepsis Rocephin and azithromycin Mucinex Sputum cultures 2. Hypovolemic hyponatremia, probably from dehydration, will give IV fluids, patient admits having poor p.o. intake recently 3. Mild acute kidney injury, probably prerenal, start hydration 4 DVT prophylaxis. Quality Measures SEPSIS Tissue perfusion reassessment (select if applicable): Tissue perfusion reassessed after bolus given FOCUSED EXAM Capillary refill: Capillary refill < 3 seconds Peripheral pulses: Pulses present bilaterally Urinary output: Increased output Documented By: Piper Tate MD 06/22/22 1719 Signed By: <Electronically signed by Piper Tate MD> 06/23/22 1321 [facility] Work Phone: 1(852) 151-238610-27-2022 Evaluation note* Encounter Date Diagnosis Assessment Notes Treatment Notes Treatment Clinical Notes May, Type 2 diabetes mellitus with unspecified complications (ICD-10 - E11.8) May, BMI 50.0-59.9, adult (ICD-10 - Z68.43) May, Constipation (ICD-10 - K59.00) May, Hypoglycemia (ICD-10 - E16.2) May, Hypertension (ICD-10 - I10) May, Knee osteoarthritis (ICD-10 - M17.9) May, Obstructive sleep apnea (ICD-10 - G47.33) May, Mixed hyperlipidemia (ICD-10 - E78.2) May, Metabolic syndrome X (ICD-10 - E88.81) May, Hypothyroidism (ICD-10 - E03.9) May, COPD (chronic obstructive pulmonary disease) (ICD-10 - J44.9) [facility] Other 09-15-2022 Evaluation note* Encounter Date Diagnosis Assessment Notes Treatment Notes Treatment Clinical Notes Apr, Type 2 diabetes mellitus with unspecified complications (ICD-10 - E11.8) Apr, BMI 50.0-59.9, adult (ICD-10 - Z68.43) Apr, Constipation (ICD-10 - K59.00) Apr, Hypertension (ICD-10 - I10) Apr, Knee osteoarthritis (ICD-10 - M17.9) Apr, Obstructive sleep apnea (ICD-10 - G47.33) Apr, Mixed hyperlipidemia (ICD-10 - E78.2) Apr, Metabolic syndrome X (ICD-10 - E88.81) Apr, Hypothyroidism (ICD-10 - E03.9) Apr, COPD (chronic obstructive pulmonary disease) (ICD-10 - J44.9) [facility] Other 08-23-2022 Evaluation note* Encounter Date Diagnosis Assessment Notes Treatment Notes Treatment Clinical Notes Mar, History of total right knee replacement (ICD-10 - Z96.651) Mar, Primary osteoarthritis of left knee (ICD-10 - M17.12) Mar, Other I had a long discussion with the patient regarding her imaging findings and etiology of her right knee pain. I explained to her that her x-ray findings are suspicious for loosening of her femoral and tibial components. However her bone scan in May 2021 does not demonstrate any significant increased uptake that would be concerning for loosening. Furthermore, she is been doing perfectly fine with her knee and not having any issues other than some twinges a few times a week. I explained to the patient that overall I think she is doing well with her right knee. At this time I would not recommend any surgical intervention or any further diagnostic testing. In regards to the left knee, I do not have any x-rays today to further evaluate it but she is under the care of Dr. Hopkins at this time for her left knee according to the patient. I did explain to her that given her history of osteoarthritis in the right knee I suspect she probably has osteoarthritis in the left knee. We discussed her conservative treatment options with Tylenol, oral anti-inflammatories, intra-articular injections, nerve ablations, and then possibly even surgery with a knee replacement. She tells me that injections do not work for her and she is not interested in this. Since she is already on ibuprofen I recommended she continue that and then use Tylenol up to 3000 mg a day. If she would like to explore nerve ablations then I can get her referral to Dr. Alberto. She voiced her understanding. If at some point in future she would need a total knee replacement, I explained to her that we would need to address her BMI of 52.4 as well as her daily smoking. I explained that she would be at such significant increased risk of complications with these 2 modifiable risk factors that I would not recommend performing any surgery on the left knee until her BMI was under 40 and she had a negative cotinine test. Patient voiced her understanding. At this point, the patient will call us in the future if she wants to explore any further treatment with the left knee. I also explained to her that if the right knee begins to bother her more frequently that she can give me a call in the future and we can look into it further. [facility] Other 08-04-2022 Evaluation note* Encounter Date Diagnosis Assessment Notes Treatment Notes Treatment Clinical Notes Mar, Type 2 diabetes mellitus with unspecified complications (ICD-10 - E11.8) Mar, BMI 50.0-59.9, adult (ICD-10 - Z68.43) Mar, Obstructive sleep apnea (ICD-10 - G47.33) Mar, Hypertension (ICD-10 - I10) Mar, Mixed hyperlipidemia (ICD-10 - E78.2) Mar, COPD (chronic obstructive pulmonary disease) (ICD-10 - J44.9) Mar, Hypothyroidism (ICD-10 - E03.9) Mar, Metabolic syndrome X (ICD-10 - E88.81) [facility] Other 08-02-2022 Evaluation note* Encounter Date Diagnosis Assessment Notes Treatment Notes Treatment Clinical Notes Mar, Bilateral acute otitis media (ICD-10 - H66.93) Ear infections are often a secondary infection caused from an URI, the flu or allergies. Take medication as directed. Complete all doses, even if you feel better. Tylenol or ibuprofen can help with pain. Warm pack to area for comfort helps as well. Follow up with primary care provider if no improvement of symptoms. [facility] Other 06-14-2022 Evaluation note* Encounter Date Diagnosis Assessment Notes Treatment Notes Treatment Clinical Notes Jan, Abnormal weight gain (ICD-10 - R63.5) Jan, Type 2 diabetes mellitus with unspecified complications (ICD-10 - E11.8) Jan, Obstructive sleep apnea (ICD-10 - G47.33) Jan, Hypertension (ICD-10 - I10) Jan, Mixed hyperlipidemia (ICD-10 - E78.2) Jan, COPD (chronic obstructive pulmonary disease) (ICD-10 - J44.9) Jan, Hypothyroidism (ICD-10 - E03.9) Jan, Metabolic syndrome X (ICD-10 - E88.81) [facility] Other chief complaint+Reason for visit Narrative* Chief Complaint Knee Pain Follow Up After Left Gnb Knee Pain Knee Pain follow up after procedure Reason for Visit Lumbar degenerative disc disease Other chronic pain Primary osteoarthritis of left knee [facility] Work Phone: Chief complaint+Reason for visit Narrative* Chief Complaint Knee Pain Follow Up After Left Gnb Knee Pain Knee Pain follow up after procedure lower back pain, L leg pain Reason for Visit Lumbar degenerative disc disease Other chronic pain Primary osteoarthritis of left knee [facility] Work Phone: Chief complaint+Reason for visit Narrative* Chief Complaint Knee Pain Follow Up After Left Gnb BH Knee Pain Knee Pain follow up after procedure lower back pain, L leg pain Reason for Visit Lumbar degenerative disc disease Other chronic pain Primary osteoarthritis of left knee [facility] Work Phone: chief complaint+Reason for visit Narrative* Chief Complaint Follow Up After Left Gnb BH Knee Pain Knee Pain follow up after procedure lower back pain, L leg pain 6 week after rfa,knee pain Reason for Visit Lumbar degenerative disc disease Other chronic pain Primary osteoarthritis of left knee Lumbar degenerative disc disease Lumbosacral spondylosis without myelopathy Other chronic pain Primary osteoarthritis of left knee Sacroiliitis [facility] Work Phone: Chief complaint+Reason for visit Narrative* Chief Complaint BH follow up after procedure lower back pain, L leg pain 6 week after rfa,knee pain Z96.651 - Presence of right artificial knee joint Reason for Visit Lumbar degenerative disc disease Other chronic pain Primary osteoarthritis of left knee Lumbar degenerative disc disease Lumbosacral spondylosis without myelopathy Other chronic pain Primary osteoarthritis of left knee Sacroiliitis [facility] Work Phone: Chief complaint+Reason for visit Narrative* Chief Complaint follow up after proc edure lower back pain, L leg pain 6 week after rfa,knee pain Z96.651 - Presence of right artificial knee joint BH M17.12 - Unilateral primary osteoarthritis, left k OP SP RTKA PAIN Reason for Visit Lumbar degenerative disc disease Other chronic pain Primary osteoarthritis of left knee Lumbar degenerative disc disease Lumbosacral spondylosis without myelopathy Other chronic pain Primary osteoarthritis of left knee Sacroiliitis History of total right knee replacement Primary osteoarthritis of left knee [facility] Work Phone: Discharge summary Author Piper Tate [facility] June 24, 2022 4:58pm Note Date/Time June 24, 2022 4 :58pm [facility] [address] [place] [address] Discharge Summary Signed Patient: Aishwarya Hartman MR#: [id number] : 1960 Acct:[id number] Age/Sex: 62 / F Adm Date: 2 Loc: Room: [address] [place] [address]: Piper Tate MD Copies to: Sisi Saravia, NEHAL Tate MD~ Providers Date of Discharge: 06/24/22 Discharging Provider: Piper Tate Primary Care Provider: Sisi Saravia Consults: 06/22/22 17:32 Consult to Case Management Routine Consult to Occupational Therapy Routine Consult to Physical Therapy Routine 06/23/22 09:15 Consult to Speech Therapy Routine 06/23/22 12:12 Consult to Gastroenterology Routine Discharge Diagnosis (1) Pneumonia: (2) Sepsis: Final Diagnosis Final Discharge Diagnosis: Sepsis due to community-acquired pneumonia, rule out Legionella, antigen pending, discharged on cefdinir and azithromycin Acute hypoxic respiratory sufficiency due to above, initially requiring oxygen, on discharge saturating well on room air Hypovolemic hyponatremia, resolved Mild acute kidney injury resolved Dysphagia to liquids, sounds like functional, referred to GI Summary Hospital Course Hospital course: 62 years old female presented with complaints of shortness of breath and cough. Patient was found to be hypoxic and requiring oxygen on admission. Chest x-ray showed middle lobe consolidation. Patient was diagnosed with community- acquiredpneumonia and started on Rocephin and azithromycin. With improvement in her symptoms. She remained afebrile x48 hours, with improvement in leukocytosis andclinical condition. On discharge she did not require any oxygen. She was feeling significantly better. Her shortness of breath almost completely resolved, she still had some cough with phlegm production. Her pleuritic chest pain and back pain resolved. She denied any headaches. She was discharged homewith recommendations to follow-up with primary care physician and to finish antibiotic course. Legionella antigen still pending. But she will be discharged on azithromycin. CT scan showed pulmonary infiltrate and did not reveal any signs of loculation or signs to suspect empyema. Nurse reported dysphagia. Per patient she choked on her coffee. She told me that she sometimes chokes on her coffee and only liquids. She never chokes whenshe drinks through the straw. She denied any choking sensation with solid food. Sounds more like functional dysphagia. She recommended to follow-up with gastroenterology for possible EGD. Physical exam: General -awake, alert, oriented ?3, not in acute distress, sitting in the chair without distress Cardiovascular -S1 with S2, no murmurs, no rubs, no gallops Pulmonary - clear to auscultation bilaterally Gastrointestinal - abdomen is soft, nondistended, nontender, bowel sounds positive, there is no rigidity, no rebound Extremities -no edema Neurological -no focal neurological dysfunction noted The patient CARE and further plan was discussed with the patient and the patient's at the bedside. All questions answered. Patient expressed understanding and was discharged home in a stable condition. The patient was given written and verbal instructions. The recommendations were made to follow-up as outpatient within one week.The patient was informed if his symptoms get worse to go back to emergency room or call his primary care physician office. Time spent on the discharge day 35 min. Time Spent with Patient Time spent providing/coordinating discharge services (# min): 35 Diagnostic Studies Completed and Pending Studies Pending studies at discharge: 06/22/22 15:27 Blood Culture Stat 06/23/22 10:55 Sputum Culture Routine 06/24/22 16:33 Legionella Pneumophilia Ag, Ur Routine Preliminary micro results at discharge 06/22/22 15:27 Blood Culture - Preliminary Blood - Right Antecubital No Growth 2 Days 06/23/22 10:55 Aerobic Culture - Preliminary Sputum - Expectorated Light Normal Respiratory Naomy 1 Day 06/22/22 15:27 Blood Culture - Preliminary Blood - Left Antecubital Staphylococcus epidermidis Labs on day of discharge: 06/24/22 16:20: POC Glucose 116 06/24/22 11:26: POC Glucose 158 06/24/22 06:42: PHA Creatinine Clear 92.05, Sodium 135 L, Potassium 4.5, Chloride 107, Carbon Dioxide 21.7 L, Anion Gap 10.8, BUN 16, Creatinine 0.75, Est GFR ( Amer) > 60, Est GFR (Non-Af Amer) > 60, Glucose 129 H, Calcium 8.9 06/24/22 06:42: Corrected WBC 15.9 H, Uncorrected WBC Count 15.9 H, RBC 3.92, Hgb 11.7 L, Hct 35.7, MCV 91.0, MCH 29.7, MCHC 32.7, RDW 14.5, Plt Count 219, MPV 9.7, Neut % (Auto) N/A, Lymph % (Auto) N/A, [place] % (Auto) N/A, Eos % (Auto) N/A, Baso % (Auto) N/A, Neut # (Auto) N/A, Lymph # (Auto) N/A, [place] # (Auto) N/A, Eos # (Auto) N/A, Baso # (Auto) N/A, Nucleated RBC % (auto) 0.0, Band Neutrophils % 10 H, Lymphocytes % 8 L, Myelocytes % 3 H, Promyelocytes % 1 H, Segmented Neutrophils 78 H, Platelet Estimate Normal, Large Platelets Slight, Giant Platelets 1, Plt Morphology Comment N/A, RBC Morphology Normal 06/24/22 06:41: POC Glucose 131 06/23/22 21:04: POC Glucose 161 06/22/22 15:27: Lactic Acid 2.0 H* Exam Physical Exam Vital Signs: Temp Pulse Resp BP Pulse Ox O2 Del Method O2 Flow Rate 36.3 C L 94 H 16 162/75 H 97 Room Air 3 06/24/22 15:30 06/24/22 16:36 06/24/22 16:36 06/24/22 15:30 06/24/22 15:30 06/24/22 15:30 06/22/22 20:00 Discharge Plan Discharge Plan Patient Disposition: Home Activity: No Activity Restriction Diet: Low-Sodium Comment: See speech therapy recommendations below. Additional Instructions: Speech therapy recommendations: *Thin liquids *Regular solids *No mixed consistencies *Whole meats *Give pills whole, one at a time, with water or applesauce *Sit upright at 90 degrees during all oral intake *Take small bites and sips *Pace yourself and eat a slow-rate *Sit upright for 30 minutes after meals and snacks Prescriptions: New cefdinir 300 mg capsule 300 mg PO BID 5 Days Qty: 10 0RF prednisone 20 mg tablet 40 mg PO DAILY 5 Days Qty: 10 0RF Rx Instructions: days 11-21 of therapy fluticasone propion-salmeterol [Advair Diskus] 250-50 mcg/dose blister with device 1 inh inhalation BID Qty: 60 0RF famotidine [Pepcid] 20 mg tablet 20 mg PO DAILY Qty: 10 0RF azithromycin 500 mg tablet 500 mg PO DAILY 5 Days Qty: 5 0RF Continued diclofenac sodium 75 mg tablet,delayed release (DR/EC) 75 mg PO BID Label Comments: TAKE 1 TABLET BY MOUTH TWICE A DAY irbesartan 150 mg tablet 150 mg PO BID Label Comments: TAKE 1 TABLET BY MOUTH EVERY DAY ketoconazole 2 % cream 1 applic TOPICAL DAILY PRN (Reason: Rash) Label Comments: APPLY A SMALL AMOUNT TO AFFECTED AREA TWICE A DAY DIRECTED *USE FOR 7 DAYS AFTER RASH IS GONE* fluticasone propionate 50 mcg/actuation spray,suspension 2 spray INTRANASAL DAILY Label Comments: SPRAY 2 SPRAYS INTO EACH NOSTRIL EVERY DAY levothyroxine 150 mcg tablet 150 mcg PO DAILY Label Comments: TAKE 1 TABLET BY MOUTH EVERY DAY IN THE MORNING nortriptyline 50 mg capsule 50 mg PO HS Label Comments: TAKE 1 CAPSULE BY MOUTH AT BEDTIME ziprasidone HCl 80 mg capsule 80 mg PO HS Label Comments: TAKE 1 CAPSULE BY MOUTH AT BEDTIME ziprasidone HCl 20 mg capsule 20 mg PO QAM albuterol sulfate [Ventolin HFA] 90 mcg/actuation HFA aerosol inhaler 2 puff INHALATION Q4H PRN (Reason: Shortness Of Breath) Label Comments: INHALE 2 PUFF FOUR TIMES A DAY NEEDED Ozempic 1 mg/dose (4 mg/3 mL) pen injector 1 mg SUBCUT 2XW Label Comments: INJECT 1MG SUBCUTANEOUSLY ONCE A WEEK Rx Instructions: wednesdays polyethylene glycol 3350 [Miralax] 17 gram/dose Powder 4 g PO DAILY PRN (Reason: Constipation) Other Ambulatory Orders: PT/OT/SP OutPatient Referral (Routine) Timeframe: [id number] Location: Determined by Patient Ordered By: Piper Tate Follow Up: Fransisco Kemp MD [Active Staff] - (Call office on Saturday to schedule follow-up with Gastroenterology for dysphagia to liquids) Sisi Saravia NP-C [Primary Care Provider] - (Please call office on Saturdayfor a follow-up appointment within 7-10 days. ) Documented By: Piper Tate MD 06/24/22 1654 Signed By: <Electronically signed by Piper aTte MD> 06/24/22 1658 [facility] Work Phone: Evaluation + Plan note No data available for this section [facility] Evaluation noteNo InformationNort [place] Other Evaluation noteNo assessment information available [facility] Work Phone: Evaluation note* Diagnosis Onset Date Resolution Status Acute hyponatremia acute ANA MARIA (acute kidney injury) ac roel Pneumonia acute Sepsis acute [facility] Work Phone: Evaluation note* Diagnosis Cervical radiculopathy- Primary Brachial neuritis or radiculitis nos Right cervical radiculopathy [facility] Diagnosis Right cervical radiculopathy- Primary Cervical radiculopathy Brachial neuritis or radiculitis nos [facility]* Diagnosis Onset Date Resolution Status Lumbar degenerative disc disease acute Other chronic pain acute Primary osteoarthritis of left knee acute [facility] Work Phone: Evaluation note* Diagnosis Onset Date Resolution Status Lumbar degenerative disc disease acute Other chronic pain acute Primary osteoarthritis of left knee acute Lumbar degenerative disc disease acute Lumbosacral spondylosis without myelopathy acute Other chronic pain acute Primary osteoarthritis of left knee acute Sacroiliitis acute [facility] Work Phone: Evaluation note* Diagnosis Onset Date Resolution Status Lumbar degenerative disc disease acute Other chronic pain acute Primary osteoarthritis of left knee acute Lumbar degenerative disc disease acute Lumbosacral spondylosis without myelopathy acute Other chronic pain acute Primary osteoarthritis of left knee acute Sacroiliitis acute History of total right knee replacement acute Primary osteoarthritis of left knee acute [facility] Work Phone: Evaluation note* Diagnosis Onset Date Resolution Status History of total right knee replacement acute Primary osteoarthritis of left knee acute [facility] Work Phone: Evaluation note* Diagnosis Chest pain, unspecified type documented in this encounter [facility] Work Phone: Evaluation note* Diagnosis Onset Date Resolution Status Dysphagia acute Gastroparesis acute GERD (gastroesophageal reflux disease) acute Irritable bowel syndrome with constipation acute [facility] Work Phone: Evaluation note* Diagnosis Chest pain, unspecified type Essential hypertension Unspecified essential hypertension Hyperlipidemia, unspecified hyperlipidemia type Sleep apnea, unspecified type Chronic obstructive pulmonary disease, unspecified COPD type (Multi) Diabetes mellitus type II, non insulin dependent (Multi) Type II or unspecified type diabetes mellitus without mention of complication, not stated as uncontrolled Palpitations BMI 45.0-49.9, adult (Multi) Current smoker documented in this encounter [facility] Work Phone: Evaluation note* Diagnosis Right hip pain- Primary Pain in joint, pelvic region and thigh Piriformis syndrome, right [facility]* Diagnosis Acute left ankle pain- Primary Left foot pain Pain in soft tissues of limb Arthritis of left ankle Bilateral leg edema Edema [facility]* Diagnosis Degeneration of intervertebral disc of lumbar region with discogenic back pain and lower extremity pain- Primary documented in this encounter [facility]* Diagnosis Primary osteoarthritis of left ankle- Primary Valgus deformity, not elsewhere classified, left ankle Instability of left ankle joint Difficulty walking Difficulty in walking Diabetes mellitus due to underlying condition with diabetic polyneuropathy, with long-term current use of insulin ([facility]) documented in this encounter [facility]* Diagnosis Spondylosis without myelopathy or radiculopathy, lumbosacral region- Primary documented in this encounter [facility]* Diagnosis Spondylosis without myelopathy or radiculopathy, lumbosacral region- Primary Arthritis of lumbar spine Sedentary lifestyle documented in this encounter [facility]* Diagnosis Spondylosis without myelopathy or radiculopathy, lumbosacral region- Primary Arthritis of lumbar spine Sedentary lifestyle documented in this encounter [facility]* Diagnosis Spondylosis without myelopathy or radiculopathy, lumbosacral region- Primary Arthritis of lumbar spine Sedentary lifestyle [facility]* Type Description Date Medical History DIABETES, type 2 Medical History HYPOTHYROID Medical History ARTHITIS Medical History HYPERLIPIDEMIA Medical History BPD Medical History COPD Medical History SLEEP APNEA Medical History depression Medical History anxiety Medical History bipolar Medical History schizophrenia Medical History Hypertension Medical History asthma Medical History snoring Medical History fatigue Medical History sleep apnea Medical History Hypothyroidism Surgical History KNEE REPLACEMENT Surgical History X2 Surgical History PARTIAL HYSTERECTOMY Surgical History LEFT MIDDLE FINGER AMPUTATION Hospitalization History SEE ABOVE [employer] [facility] [employer] general Narrative - Reported* Type Description Date Medical History DIABETES, type 2 Medical History HYPOTHYROID Medical History ARTHITIS Medical History HYPERLIPIDEMIA Medical History BPD Medical History COPD Medical History SLEEP APNEA Medical History depression Medical History anxiety Medical History bipolar Medical History schizophrenia Medical History Hypertension Medical History asthma Medical History snoring Medical History fatigue Medical History sleep apnea Medical History Hypothyroidism Surgical History KNEE REPLACEMENT Surgical History X2 Surgical History PARTIAL HYSTERECTOMY Surgical History LEFT MIDDLE FINGER AMPUTATION Hospitalization History SEE ABOVE Hospitalization History Pneumonia/ Septis 2 [employer] Other [employer] general Narrative - Reported* Type Description Date Medical History DIABETES, type 2 Medical History HYPOTHYROID Medical History ARTHITIS Medical History HYPERLIPIDEMIA Medical History BPD Medical History COPD Medical History SLEEP APNEA Medical History depression Medical History anxiety Medical History bipolar Medical History schizophrenia Medical History Hypertension Medical History asthma Medical History snoring Medical History fatigue Medical History sleep apnea Medical History Hypothyroidism Surgical History KNEE REPLACEMENT Surgical History X2 Surgical History PARTIAL HYSTERECTOMY Surgical History LEFT MIDDLE FINGER AMPUTATION Surgical History EGD [facility] Hospitalization History SEE ABOVE Hospitalization History Pneumonia/ Septis 2 [employer] Other History of Present illness Narrative* Patient is here for vascular evaluation for complaint of chest pain and abnormal stress test. She is morbidly obese 61-year-old with multiple risk factor for ischemic heart disease including hypertension, hyperlipidemia, diabetes mellitus, morbid obesity and chronic tobacco use. She recently has been having intermittent episodes of chest pain some of them are recombinant and highly suggestive of g astroesophageal flux disease. However some appears exertional. She admits to limited exercise tolerance and dyspnea on exertion. Patient referred for a stress test. Her Lexiscan myocardial fusion study showed no evidence of myocardial ischemia by perfusion images but nondiagnostic ST-T changes were noted. Patient denies any previous cardiac history or diagnosis. She has never had a cardiac catheterization. She is high risk for ischemic heart disease based on risk profile. Her other concurrent complaint is rare palpitation and exertional shortness of breath * Assessment * 1. Episode of chest pain some of them is clearly atypical and likely to be GI due to gastroesophageal flux disease but other I cannot exclude the possibility of angina. Her recent stress test was negative for myocardial ischemia by perfusion images * 2. Hypertension controlled * 3. Hyperlipidemia on treatment * 4 Sleep apnea using CPAP * 5. Morbid obesity * 6. Tobacco use * 7.. Diabetes mellitus * 8. Intermittent palpitation * 9. Exertional shortness of breath due to morbid obesity and tobacco use * Plan * 1. I reviewed with patient results of her stress test and for the time being I reassured her considering her myocardial fusion study was negative for myocardial ischemia * 2. I recommended to the patient to take aspirin 81 mg once daily and to take omeprazole 40 mg dailyfor 4 to 6 weeks to see whether there is any improvement of her chest pain * 3. I also recommended starting Coreg 3.125 twice daily which I believe it will have some cardioprotective goal and address some of her palpitation * 4. We will see her back in 2 to 3 months. If patient continues to have complaint of chest pain I would consider proceeding with cardiac catheterization considering her risk factors * 5. I discussed with patient the importance of aggressively addressing her risk factors including losing weight, exercise, following healthy heart diet and stop smoking [facility] Work Phone: History of Present illness Narrative* Patient is here for follow-up and management for previous evaluation of chest pain felt to be atypical likely GI, hypertension, hyperlipidemia and obesity. Since last time I saw her she described no change in cardiac status or symptoms. She denies any exertional symptoms. She denies lightheadedness, dizziness or syncope. She has mid to limited exercise tolerance due to her weight. * Assessment * 1. Episode of chest pain some of them is clearly atypical and likely to be GI due to gastroesophageal flux disease but other I cannot exclude the possibility of angina. Her recent stress test was negative for myocardial ischemia by perfusion images * 2. Hypertension controlled * 3. Hyperlipidemia on treatment * 4 Sleep apnea using CPAP * 5. Morbid obesity * 6. Tobacco use * 7.. Diabetes mellitus * 8. Intermittent palpitation * 9. Exertional shortness of breath due to morbid obesity and tobacco use * Plan * 1. I reviewed with patient results of her stress test and for the time being I reassured her considering her myocardial fusion study was negative for myocardial ischemia * 2. I recommended to the patient to continue present medical therapy * 3. I advised her if she continued to be symptomatic with chest pain especially if it becomes exertional we will consider an invasive evaluation * 4. I discussed with patient the importance of aggressively addressing her risk factors including losing weight, exercise, following healthy heart diet and stop smoking [facility] Work Phone: History of Present illness Narrative* Patient is here for follow-up continue management for previous evaluation for chest pain, hypertension, hyperlipidemia and morbid obesity. Since last time I saw her she was in the hospital recently for treatment with pneumonia. She had no recurrence of her chest pain. She continues to smoke and complaint of shortness of breath. She denies lightheadedness, dizziness or syncope recent hospitalization record noted and reviewed with her. * Assessment * 1. Previous evaluation for chest pain appears atypical with negative noninvasive cardiac work-up however the patient is at least moderate risk for ischemic heart disease. She denies recurrence recently * 2. Hypertension controlled * 3. Hyperlipidemia on treatment * 4 Sleep apnea using CPAP * 5. Morbid obesity * 6. Tobacco use and COPD * 7.. Diabetes mellitus * 8. Intermittent palpitation * 9. Exertional shortness of breath due to morbid obesity and tobacco use * 10. Recent treatment for pneumonia * Plan * 1. I reviewed with patient results of her stress test and recent hospitalization record * 2. I recommended to the patient to continue present medical therapy * 3. I advised her if she had recurrence of her chest pain down the road we may consider invasive evaluation considering her multiple risk factors. I educated her about ischemic heart disease symptoms and signs * 4. I discussed with patient the importance of aggressively addressing her risk factors including losing weight, exercise, following healthy heart diet and stop smoking [facility] DO Work Phone: Hospital Discharge instructions Additional Instructions Speech therapy recommendations: *Thin liquids *Regular solids *No mixed consistencies *Whole meats *Give pills whole, one at a time, with water or applesauce *Sit upright at 90 degrees during all oral intake *Take small bites and sips *Pace yourself and eat a slow-rate *Sit upright for 30 minutes [facility] Work Phone: Hospital Discharge instructions Additional Instructions Take the prednisone 20 mg twice a day for 5 days May take the muscle relaxer cyclobenzaprine up to 3 times a day for pain it might make you a little drowsy May apply 1-2 lidocaine patches over sorest areas daily May use ice or warm moist heat whichever helps the best Gentle stretching Continue follow-up with family doctor pain management Return to the ER for more severe pain weakness in your legs loss of bladder bowel control high fever or any [facility] Work Phone: Hospital Discharge instructions No data available for this section [facility] Progress note No data available for this section [facility] Reason for visit Narrativepain management [facility] [place] Other Reason for visit Narrative* Consultation (Routine) - Authorized Specialty Diagnoses / Procedures Referred By Contac t Referred To Contact Physical Therapy Diagnoses Right cervical radiculopathy Procedures ND OFFICE/OUTPATIENT NEW HIGH MDM 60 MINUTES Erika Orosco PA [address] [facility] [address] [place] [address] Sisi Lucas, PT [address] [place] [address] Referral ID Status Reason Start Date Expiration Date Visits Requested Visits Authorized [id number] Authorized Consult and Treat 09/12/2023 03/10/2024 10 10 [facility] N[facility]ative* Consultation (Routine) - Closed Specialty Diagnoses / Procedures Referred By Contac t Referred To Contact Neurology Diagnoses Sciatica, unspecified side Procedures ND OFFICE/OUTPATIENT NEW LOW MDM 30 MINUTES Sisi Saravia MD [facility] [place] [address] Phone: tel:[phone] fax: Nitza Simeon DO [address] [id number] Phone: tel: fax: Referral ID Status Reason Start Date Expiration Date V isits Requested Visits Authorized [id number] Closed Consult and Treat 11/26/2024 05/25/2025 1 1 [facility] N[facility]ative* Rehabilitation - Outpatient (Routine) - Authorized Specialty Diagnoses / Procedures Referred By Contac t Referred To Contact Physical Therapy Diagnoses Spondylosis without myelopathy or radiculopathy, lumbosacral region Procedures ND PHYSICAL THERAPY EVALUATION LOW COMPLEX 20 MINS ND OFFICE/OUTPATIENT NEW HIGH MDM 60 MINUTES Linda Nj MD [address] [facility] [address] [place] [address] Phone: tel: fax: Leny Chacon PT Referral ID Status Reason Start Date Expiration Date V isits Requested Visits Authorized [id number] Authorized 04/23/2025 10/11/2025 20 20 [facility] Narrative* Rehabilitation - Outpatient (Routine) - Authorized Specialty Diagnoses / Procedures Referred By Contac t Referred To Contact Physical Therapy Diagnoses Spondylosis without myelopathy or radiculopathy, lumbosacral region Procedures ND PHYSICAL THERAPY EVALUATION LOW COMPLEX 20 MINS ND OFFICE/OUTPATIENT NEW HIGH MDM 60 MINUTES Linda Nj MD [address] [address] Phone: tel: fax: Leny Chacon PT Referral ID Status Reason Start Date Expiration Date V isits Requested Visits Authorized [id number] Authorized 04/23/2025 08/18/2025 20 30 [facility] Chief Complaint AISHWARYA HARTMAN is being seen for abnormal test(s) results and stress.AISHWARYA HARTMAN is being seen for a 6 month follow-up of. Family History No Family History Records FoundUnknown Family Member Name Dates Details Family history of atheroscle rosis: Father(V17.49, Z82.49) Status:Active Family history of parkinsoni sm: Mother(V17.2, Z82.0) Status:Active Family history of diabetes m ellitus: Mother, Sister(V18.0, Z83.3) Status:Active Family history of cerebrovas cular accident (CVA): Mother, Brother(V17.1, Z82.3) Status:Active Heart valve transplanted: Br other(V42.2, Z95.2) Status:Active Unknown Family Member Name Dates Details Family history of atheroscle rosis: Father(V17.49, Z82.49) Status:Active Family history of parkinsoni sm: Mother(V17.2, Z82.0) Status:Active Family history of diabetes m ellitus: Mother, Sister(V18.0, Z83.3) Status:Active Family history of cerebrovas cular accident (CVA): Mother, Brother(V17.1, Z82.3) Status:Active Heart valve transplanted: Br other(V42.2, Z95.2) Status:Active Relationship Condition Age at Onset Recorded Date/T rosa father Myocardial infarction Unknown grandparent Myocardial infarction Unknown Diabetes mellitus Unknown Not Specified Parkinson's disease Unknown Unknown Family Member Name Dates Details Family history of atheroscle rosis: Father(V17.49, Z82.49) Status:Active Family history of parkinsoni sm: Mother(V17.2, Z82.0) Status:Active Family history of diabetes m ellitus: Mother, Sister(V18.0, Z83.3) Status:Active Family history of cerebrovas cular accident (CVA): Mother, Brother(V17.1, Z82.3) Status:Active Heart valve transplanted: Br other(V42.2, Z95.2) Status:Active Relationship Condition Age at Onset Recorded Date/T rosa father Myocardial infarction Unknown Unknown Heart disease Unknown grandparent Diabetes mellitus Unknown Myocardial infarction Unknown Not Specified Parkinson's disease Unknown Family history of mental disorder Unknown Hypertension Unknown family member Obesity Unknown Relationship Condition Age at Onset Recorded Date/T rosa father Myocardial infarction Unknown Unknown Heart disease Unknown grandparent Diabetes mellitus Unknown Myocardial infarction Unknown mother Parkinson's disease Unknown Family history of mental disorder Unknown Hypertension Unknown aunt Obesity Unknown Chief Complaint and Reason for Visit Chief Complaint Obesity Z96.651 Chief Complaint Z96.651 Obesity Chief Complaint Z96.651 OA, polyarthralgia, gout, meds Obesity low bp dizzy Reason for Visit Acute hyponatremia ANA MARIA (acute kidney injury) Pneumonia Sepsis Chief Complaint Obesity Chief Complaint Obesity Knee Pain M54.50 M46.1 Chief Complaint Knee Pain M54.50 M46.1 Knee Pain Chief Complaint BH Knee Pain F/U After Left Genicular Nb M54.50 M46.1 Knee Pain Follow Up After Left Gnb Knee Pain Chief Complaint Z96.651 - Presence o f right artificial knee joint M17.12 - Unilateral primary osteoarthritis, left k OP SP RTKA PAIN BH hip, leg pain Reason for Visit History of total rig ht knee replacement Primary osteoarthritis of left knee Chief Complaint hip, leg pain BH ibs/gastroparesis Reason for Visit Dysphagia Gastroparesis GERD (gastroesophageal reflux disease) Irritable bowel syndrome with constipation Advance Directives No Advanced Directives Records Found Advance Directive Response Recorded Date/ Time Advance Directives No May 30, 2021 10:06am Advance Directive Response Recorded Date/ Time Advance Directives No May 30, 2021 9:06am Summary Purpose Reason for Referral Specialty Diagnoses / Procedures Referred By Gab otero Referred To Contact Radiology Diagnoses Chest pain, unspecified type Procedures Nuclear Stress Test CHG MYOCARDIAL SPECT MULTIPLE STUDIES Noman Henriquez MD 703 [facility] [address], [address] [address] Referral ID Status Reason Start Date Expiration Date V isits Requested Visits Authorized [id number] Authorized 04/02/2024 04/02/2025 5 5 Reason 10/18/22 @ 10:30 g enicular block for left knee pain Diagnosis 1 Osteoarthritis of le ft knee, unspecified osteoarthritis type (M17.12) Referral Organization [facility] Referring Provider First Name Osvaldo Referring Provider Last Name Armando ORTEGA Referring Provider Specialty Orthopedic Surgery Referred Organization [facility] Pain Managemen shanna Ellison Referred Provider Rick Alberto Referred Address [address] [place], [place],[address] Referred Provider Specialty Pain Medicin e Referral Priority Routine Referral Appointment Date 2022-10-18 General Notes Please schedule cons ultation with Dr. Stephanie Alberto in pain management. Telma Gentile 09/28/2022 01:30:45 PM >received today, sending the outgoing referral at this time Telma Gentile 10/01/2022 11:15:46 AM >pt has been scheduled 10/18/22 Katina Brantley 10/24/2022 07:14:42 AM >Sent telephone encounter to referring physician to let them know that the consult letter is ready for their review Additional Source Comments REASON FOR VISIT (unrecogniz ed section and content) Reason Onset Date Comments re: PT today 10/01/2023 She called benedicto covington not feeling well today and needs to cx; I reminded and she confirmed 10/03. Specialty Diagnoses / Procedures Referred By Gab otero Referred To Contact Radiology Diagnoses Chest pain, unspecified type Procedures Nuclear Stress Test CHG MYOCARDIAL SPECT MULTIPLE STUDIES Noman Henriquez MD 703 [facility], [address] [place] [address] Referral ID Status Reason Start Date Expiration Date V isits Requested Visits Authorized [id number] Authorized 04/02/2024 04/02/2025 5 5 Reason Comments Follow-up Overdue last seen in 2021 Reason Comments Pain Reason Comments Foot Problem 64 yo BURR SANDER presents to day for concerns of pain and swelling with left foot/ankle. Patient states she had xrays taken with Dr. Luis Miguel Orosco with ortho, and states they found spurs, and then was referred to our office. Patient also relates fallen arch with left foot. Patient states she is pre-diabetic. Patient also states that she may need orthotics, has had custom ones in the past but cannot find them. SS: 8.5-9 Care Teams (unrecognized sec tion and content) Team Status: Active Member Role Status Dates Sisi Saravia BURR SANDER-C Primary Care Provider Active Team Status: Inactive Member Role Status Dates Sisi Saravia NP-C Primary Care Provider Active Start: October 31, 2023 End: October 31, 2023 Evy Maciel NP Attending Provider Active Start: October 31, 2023 End: October 31, 2023 Team Status: Inactive Member Role Status Dates Sisi Saravia NP-C Primary Care Provider Active Start: November 11, 2023 End: November 11, 2023 Kameron Kenny APRN Emergency Provider Active Start: November 11, 2023 End: November 11, 2023 Team Status: Inactive Member Role Status Dates Sisi Saravia NP-C Primary Care Provider Active Start: December 02, 2023 End: December 02, 2023 Evy Maciel NP Active Start: December 02, 2023 End: December 02, 2023 Jet Bansal MD Attending Provider Active Sta rt: December 02, 2023 End: December 02, 2023 Team Status: Inactive Member Role Status Dates Osvaldo Roberts II, MD Attending Provider Active Start: January 02, 2024 End: January 02, 2024 Sisi Saravia NP-C Primary Care Provider Active Start: January 02, 2024 End: January 02, 2024 Team Status: Active Member Role Status Dates Sisi Saravia NP-C Primary Care Provider Active Start: January 06, 2024 Jesu Velazquez MD Attending Provider Active Start: January 06, 2024 Team Status: Active Member Role Status Dates Osvaldo Roberts II, MD Attending Provider Active Start: January 09, 2024 Sisi Saravia NP-C Primary Care Provider Active Start: January 09, 2024 Team Status: Inactive Member Role Status Dates Sisi Saravia NP-C Primary Care Provider Active Start: January 09, 2024 End: January 09, 2024 Osvaldo Roberts II, MD Attending Provider Active Start: January 09, 2024 End: January 09, 2024 Team Status: Active Member Role Status Dates Sisi Saravia BURR SANDER-C Primary Care Provider Active Start: October 29, 2023 Jesu Velazquez MD Attending Provider Active Start: October 29, 2023 Team Status: Inactive Member Role Status Dates Sisi Saravia BURR SANDER-C Primary Care Provider Active Start: August 28, 2023 End: August 28, 2023 Jet Bansal MD Attending Provider Active Sta rt: August 28, 2023 End: August 28, 2023 Team Status: Inactive Member Role Status Dates Jet Bansal MD Attending Provider Active Sta rt: September 17, 2023 End: September 17, 2023 Team Status: Inactive Member Role Status Dates Sisi Saravia BURR SANDER-C Primary Care Provider Active Start: October 09, 2023 End: October 09, 2023 Jet Bansal MD Attending Provider Active Sta rt: October 09, 2023 End: October 09, 2023 Team Status: Active Member Role Status Dates Sisi Saravia BURR SANDER-C Primary Care Provider Active Start: October 09, 2023 Jet Bansal MD Attending Provider, Other Provider Active Start: October 09, 2023 Team Status: Active Member Role Status Dates Sisi Saravia BURR SANDER-C Primary Care Provider Active Start: July 16, 2023 Jesu Velazquez MD Attending Provider Active Start: July 16, 2023 Team Status: Inactive Member Role Status Dates Sisi Saravia BURR SANDER-C Primary Care Provider Active Start: July 24, 2023 End: July 24, 2023 Jet Bansal MD Attending Provider Active Sta rt: July 24, 2023 End: July 24, 2023 Team Status: Inactive Member Role Status Dates Jet Bansal MD Attending Provider Active Sta rt: July 31, 2023 End: July 31, 2023 Team Status: Inactive Member Role Status Dates Sisi Saravia BURR SANDER-C Primary Care Provider Active Start: August 06, 2023 End: August 06, 2023 Jet Bansal MD Attending Provider Active Sta rt: August 06, 2023 End: August 06, 2023 Team Status: Inactive Member Role Status Dates Sisi Isabella Rani , BURR SANDER-C Primary Care Provider Active Jet S Zoë , MD Attending Provider Active Team Status: Active Member Role Status Dates Sisi Saravia , B[employer] SANDER-C Primary Care Provider Active Erika Orosco PA-C Attending Provider Active Team Status: Inactive Member Role Status Dates Sisi Saravia , B[employer] SANDER-C Primary Care Provider Active Osvaldo Roberts II, MD Attending Provider Active Team Status: Inactive Member Role Status Dates Sisi Saravia , B[employer] SANDER-C Primary Care Provider Active Luis Miguel Garibay MD Attending Provider Active Team Status: Inactive Member Role Status Dates Sisi Saravia , B[employer] SANDER-C Primary Care Provider Active Milan Quintanilla PA-C Emergency Provider Active Piper Tate MD Admit Provider, Attending Provide r Active Team Status: Inactive Member Role Status Dates Sisi Saravia , B[employer] SANDER-C Primary Care Provider, Attend ing Provider Active Net Developer Consultant Relationship Specialty Start Date End Date Unallocated, Noms Provider [address] [place] [address] PCP - General 05/30/23 Sisi Saravia MD [address] [place], [place] [id number] Referring Physician Family Medicine 02/07/23 Net Developer Consultant Relationship Specialty Start Date End Date Unallocated, Noms Provider [address] [place] [address] PCP - General 05/30/23 Sisi Saravia MD [address] [place] [address] Referring Physician Family Medicine 02/07/23 Net Developer Consultant Relationship Specialty Start Date End Date Unallocated, Noms Provider [address] [facility] [place] [place] [address] PCP - General 05/30/23 Sisi Saravia MD [address] [place] [address] Referring Physician Family Medicine 02/07/23 Net Developer Consultant Relationship Specialty Start Date End Date Unallocated, Noms Provider [address] [place] [address] PCP - General 05/30/23 Sisi Saravia MD [address] [place] [address] Referring Physician Family Medicine 02/07/23 Net Developer Consultant Relationship Specialty Start Date End Date Unallocated, Noms Provider [address] [place] [address] PCP - General 05/30/23 Sisi Saravia MD [address] [place] [address] Referring Physician Family Medicine 02/07/23 Team Status: Active Member Role Status Dates Sisi Saravia NP-C Primary Care Provider Active Start: September 25, 2023 Jesu Velazquez MD Attending Provider Active Start: September 25, 2023 Team Status: Inactive Member Role Status Dates Osvaldo Roberts II, MD Attending Provider Active Start: January 09, 2024 End: January 09, 2024 Sisi Saravia NP-C Primary Care Provider Active Start: January 09, 2024 End: January 09, 2024 Team Status: Active Member Role Status Dates Sisi Saravia NP-C Primary Care Provider Active Start: March 09, 2024 Jesu Velazquez MD Attending Provider Active Start: March 09, 2024 Team Status: Inactive Member Role Status Dates Sisi Saravia NP-C Primary Care Provider Active Start: March 24, 2024 End: March 24, 2024 Tabitha Ryan [facility]- Emergency Provider Active Start: March 24, 2024 End: March 24, 2024 Net Developer Consultant Relationship Specialty Start Date End Date Sisi Saravia APRN-CNP [address] [place] [address] PCP - General 07/10/22 Net Developer Consultant Relationship Specialty Start Date End Date Sisi Saravia APRN-CNP [address] [place] [address] PCP - General 07/10/22 Net Developer Consultant Relationship Specialty Start Date End Date Sisi Saravia APRN-CNP [address] [place] [address] PCP - General 07/10/22 Net Developer Consultant Relationship Specialty Start Date End Date Sisi Saravia APRN-CNP [address] [place] [address] PCP - General 07/10/22 Team Status: Active Member Role Status Dates IDALMIS Sesay Primary Care Provider Active Start: June 09, 2024 Jesu Velazquez MD Attending Provider Active Start: June 09, 2024 Team Status: Inactive Member Role Status Dates Sisi Saravia NP-C Primary Care Provider Active Start: June 15, 2024 End: June 15, 2024 Eneida Pacheco DO Attending Provider Active St art: June 15, 2024 End: June 15, 2024 Net Developer Consultant Relationship Specialty Start Date End Date Sisi Saravia APRN-CNP [address] [place] [address] PCP - General 07/10/22 Net Developer Consultant Relationship Specialty Start Date End Date Unallocated, Michaelle Hdez MD [address] [place] [address] [place] [address] PCP - General 05/30/23 [place] [address] [place] [address] Referring Physician Family Medicine 02/07/23 Net Developer Consultant Relationship Specialty Start Date End Date Unallocated, [place] [address] PCP - General 05/30/23 Sisi Saravia MD [address] [place] [address] Referring Physician Family Medicine 02/07/23 Net Developer Consultant Relationship Specialty Start Date End Date Unallocated, Michaelle Hdez MD [address] [place] [address] PCP - General 05/30/23 Sisi Saravia MD [address] [place] [address] Referring Physician Family Medicine 02/07/23 Net Developer Consultant Relationship Specialty Start Date End Date Sisi Saravia MD [address] [place], [place] [phone] Referring Physician Family Medicine 12/24/24 Net Developer Consultant Relationship Specialty Start Date End Date Sisi Saravia MD [address] [place] [address] Referring Physician Family Medicine 12/24/24 Net Developer Consultant Relationship Specialty Start Date End Date Sisi Saravia MD [address] [place] [address] Primary Care Provider Family Medicine 12/24/24 Net Developer Consultant Relationship Specialty [place] [address] [place] [address] Primary Care Provider Family Medicine 12/24/24 Net Developer Consultant Relationship Specialty Start Date End Date Sisi Saravia MD [address] [place] [address] Primary Care Provider Family Medicine 12/24/24 Net Developer Consultant Relationship Specialty Start Date End Date Sisi Saravia MD [address] [place] [address] Primary Care Provider Family Medicine 12/24/24 Net Developer Consultant Relationship Specialty Start Date End Date Sisi Saravia MD [address] [place] [address] Primary Care Provider Family Medicine 12/24/24 Net Developer Consultant Relationship Specialty Start Date End Date Sisi Saravia MD [address] [place] [address] Primary Care Provider Family Medicine 12/24/24 Net Developer Consultant Relationship Specialty Start Date End Date Sisi Saravia MD [address] [place] [address] Primary Care Provider Family Medicine 12/24/24 Net Developer Consultant Relationship Specialty Start Date End Date Sisi Saravia MD [address] [place] [address] Primary Care Provider Family Medicine 12/24/24 Goals (unrecognized section and content) Goals may be documented in a n alternate section INFORMATION SOURCE (unrecogn ized section and content) DATE CREATED AUTHOR 07/11/2022 [facility] DATE CREATED AUTHOR AUTHOR'S ORGANIZ ATION 07/11/2022 [employer] DATE CREATED AUTHOR AUTHOR'S ORGANIZ ATION 08/15/2022 [facility] DATE CREATED AUTHOR AUTHOR'S ORGANIZ ATION 04/04/2024 [facility] DATE CREATED AUTHOR AUTHOR'S ORGANIZ ATION 07/21/2024 [facility] DATE CREATED AUTHOR AUTHOR'S ORGANIZ ATION 05/06/2025 [facility] DATE CREATED AUTHOR AUTHOR'S ORGANIZ ATION 05/08/2025 [facility] DATE CREATED AUTHOR AUTHOR'S ORGANIZ ATION 05/24/2025 [facility] FOR RECORDS PERTAINING TO PATIENTS WHO ARE OR HAVE BEEN ENROLLED IN A CHEMICAL DEPENDENCY/SUBSTANCEABUSE PROGRAM, SOME INFORMATION MAY BE OMITTED. This clinical summary was aggregated from multiple sources. Caution should be exercised in using it in the provision of clinical care. This summary normalizes information from multiple sources, and as a consequence, information in this document may materially change the coding, format and clinical context of patient data. In addition, data may be omitted in some cases. CLINICAL DECISIONS SHOULD BE BASED ON THE PRIMARY CLINICAL RECORDS. [facility] [place] [facility]. provides no warranty or guarantee of the accuracy or completeness of information in this document.
== END 2025-06-02 10:51 | disposition home or self-care (01) ==
LOC: US 10:51
PROVIDERS: PCP Nurse Practitioner Family; Visit Provider Nurse Practitioner Family
DX: R74.8 Abnormal levels of other serum enzymes (principal); K76.0 Fatty (change of) liver, not elsewhere classified; K80.20 Calculus of gallbladder without cholecystitis without obstruction
CPT/HCPCS: 76705

== ENCOUNTER 2025-07-12 09:36 | Outpatient (OUT) | payer MEDICARE, MEDICAID, SELFPAY ==
--- OUTSIDE RECORDS SUMMARY | 2024-05-21 06:00 | XMS_ITS ---
Author Organization [facility] Address [address] [facility] [place] [address] Care Team Providers Care Fighter Pilot Name Role Phone Elvis Sarah Primary Care Provider [phone] Dr. Lorenzo Mehta Unavailable [phone] REASON FOR VISIT IMPRESSION Encounters Encounter Location Date Provider Diagnosis [facility] [address] [facility] [address] 05/21/2024 Lorenzo Hayes Plan Of Treatment No Information Progress Notes * POWER WOMACKINDOB:1960 ( 65 yo F)Acc No.[id number]:05/21/2024 Dental Appointment Patient: AISHWARYA DONG :?Lorenzo Hayes DDSDOB:1960???Age:64 Y???Sex: FemaleDate:05/21/2024hone:[phone]:[address] [facility] [address], [id number]:Elvis Sarah Subjective: * Chief Complaints: * I MPRESSION * Electronic signature of Dr. Lorenzo Hayes , [facility], [id number] on 07/12/2025 at 09:41 AM ESTSign off status: Pending * Provider: Karen Hayes DDS Date: Generated for Printing/Faxing/eTransmitting on:?07/12/2025 09:41 AM EST
--- OUTSIDE RECORDS SUMMARY | 2024-09-21 05:00 | XMS_ITS ---
Author Organization [facility] Address [address] [facility] [place] [address] Care Team Providers Care Change Number Operator Name Role Phone Elvis Sarah Primary Care Provider [phone] Dr. Lorenzo Mehta Unavailable [phone] REASON FOR VISIT DELIVERY Encounters Encounter Location Date Provider Diagnosis [facility] [address] [facility] [place] [address] 09/21/2024 Lorenzo Hayes Plan Of Treatment No Information Progress Notes * POWER WOMACKINDOB:1960 ( 65 yo F)Acc No.[id number]:09/21/2024 Dental Appointment Patient: AISHWARYA DONG :?Lorenzo Hayes DDSDOB:1960???Age:64 Y???Sex: FemaleDate:09/21/2024Phone:[phone]:[address], [id number]:Elvis Sarah Subjective: * Chief Complaints: * D ELIVERY * Electronic signature of Dr. Lorenzo Hayes , [facility], [id number] on 07/12/2025 at 08:56 AM ESTSign off status: Pending * Provider: Karen Hayes DDS Date: 0 09/21/2024 Generated for Printing/Faxing/eTransmitting on:?07/12/2025 08:56 AM EST
--- OUTSIDE RECORDS SUMMARY | 2025-05-03 08:00 | XMS_ITS ---
Author Organization [facility] in [place] Address [address] [place] [address] Care Team Providers Care Hoop Puncher Name Role Phone Sisi Schafer Primary Care Provider REASON FOR VISIT SINUS INFECTION, ACID REFLUX Encounters Encounter Location Date Provider Diagnosis [address] [address] 05/03/2025 Sisi Schafer Plan Of Treatment No Information Progress Notes * Milo WOMACK LDOB:1960 (65 yo F)Acc No.[id number]:05/03/2025 UNLOCKED PROGRESS NOTE Progress Note Patient: Milo DONG :?[facility] CNPDOB:1960 ???Age:65 Y???Sex:FemaleDate:05/03/2025Phone:[phone]:[address], [place], [id number] Subjective: * Chief Complaints: * 1 . SINUS INFECTION, ACID REFLUX. * Medical History: Objective: * Vitals: Assessment: Plan: * Treatment: * * Electronic signature of Sisi Schafer NP, MANAGER GROUP.TUFTING MACHINE [id number] on 07/12/2025 at 09:40 AM ESTSign off status: PendingVisit Status:?CANCPHONE (Cancelled Phone) * Provider: Nichole NGUYEN), TUFTING MACHINE FIXER Date: 0 05/03/2025 Generated for Printing/Faxing/eTransmitting on:?07/12/2025 09:40 AM EST
--- NOTE | 2025-07-12 | XR_ITS ---
The [address] [address] Patient Name: AISHWARYA HARTMAN MRN: [id number] date: 1960 Sex: F Assigned Patient Location: [facility] Current Patient Location: [facility] Accession/Order Number: [id number] Exam Date: 07/12/2025 10:32 Report Date: 07/12/2025 11:01 At the request of: KIRSTIE SARAVIA Procedure: XR knee LT 3V LEFT KNEE - 3 views COMPARISON: 11/19/2024 CLINICAL DATA: Pain at the posterior left leg and edema. AP, lateral and internal oblique views were obtained. There is osteopenia. No acute fractures or dislocation are noted. There is narrowing of the medial tibiofemoral joint compartment where there is subchondral cystic change, mild sclerosis and articular irregularity. Tricompartment marginal spurring is again seen. There is a small knee effusion. No focal soft tissue swelling is noted. XR/XR knee LT 3V IMPRESSION: OSTEOPENIA AND DEGENERATIVE CHANGES, GREATEST MEDIALLY. Impression dictated by: Mary Cerda M.D. 07/12/2025 11:01 AM Dictation Location: [place] [address] Electronically authenticated by: [id number] Y Date: 07/12/2025 11:01
--- OUTSIDE RECORDS SUMMARY | 2025-07-12 09:41 | XMS_ITS | Clinical Summary ---
Author Organization [facility] Address [address] [place] [address] Phone Care Team Providers Care Heel Seam Rubber Name Role Phone Hanh Sisi Osei AUTO BODY ESTIMATOR-COPY LATHE TENDER Primary Care Provider Allergies Active AllergyReactionsCriticalityNoted DateCommentsDoxycyclinePalpitationsLow 04/02/20241263KfomvqftbsBkdyeryph31/15/0622RzefftoHxvdzaipepfqfr88/15/2024regabalin Zjzkybcoc72/15/2024 Medications MedicationSigDispense QuantityRefillsLast FilledStart DateEnd DateStatus azelastine (Optivar) 0.05 % ophthalmic solution INSTILL 1 DROP INTO AFFECTED EYE TWICE A DAYActive ziprasidone (Geodon) 20 mg capsule 1 capsule (20 mg) early in the morning..Active ziprasidone (Geodon) 80 mg capsule Take 1 capsule (80 mg) by mouth once daily at bedtime.Active nortriptyline (Pamelor) 50 mg capsule Take 1 capsule (50 mg) by mouth once daily at bedtime.Active irbesartan (Avapro) 150 mg tablet Take 1 tablet (150 mg) by mouth once daily.Active allopurinol (Zyloprim) 300 mg tablet Take 1 tablet (300 mg) by mouth once daily.Active traZODone (Desyrel) 50 mg tablet TAKE 2 TABLETS BY MOUTH EVERY DAY AT BEDTIME NEEDED FOR SLEEPActive hydroCHLOROthiazide (HYDRODiuril) 25 mg tablet Take 1 tablet (25 mg) by mouth once daily.Active levothyroxine (Synthroid, Levoxyl) 150 mcg tablet Take 1 tablet (150 mcg) by mouth once daily in the morning. Take before meals. Active omeprazole (PriLOSEC) [address] capsule Take 1 capsule (40 mg) by mouth 2 times a day.Active Trelegy Ellipta 100-62.5-25 mcg blister with device Inhale 1 puff once daily.02/08/2024ctive fluticasone (Flonase) 50 mcg/actuation nasal spray Administer 1 spray into each nostril once daily.09/02/2023ctive cetirizine (ZyrTEC) 10 mg tablet Take 1 tablet (10 mg) by mouth once daily.Active magnesium 250 mg tablet Take 1 tablet (250 mg) by mouth early in the morning..Active b complex 0.4 mg tablet Take 1 tablet by mouth once daily.Active cholecalciferol (Vitamin D3) 25 MCG (1000 UT) capsule Take 1 capsule (25 mcg) by mouth once daily.Active vitamin K2 180 mcg capsule Take 1 capsule by mouth early in the morning..Active turmeric root extract 500 mg capsule Take 1 capsule by mouth early in the morning..Active omega 4-nra-ird-fish oil (Fish OiL) 1,200 (144-216) mg capsule Take 1 capsule (1,200 mg) by mouth early in the morning..Active naproxen (EC Naprosyn) 500 mg EC tablet Take 1 tablet (500 mg) by mouth 2 times a day. Do not crush, chew, or split. Active acetaminophen (Tylenol) 500 mg tablet Take 1 tablet (500 mg) by mouth 2 times a day.Active Active Problems ProblemNoted DateDiagnosed DateChest pain04/02/2024Essential hypertension 04/02/20240237Toattqxvaynwdy82/15/2024Sleep apnea04/02/2024OPD (chronic obstructive pulmonary disease)04/02/2024iabetes mellitus type II, non insulin dependent 04/02/20248484Fyigynvqmirs03/15/2024Exertional ampwmao5304/02/2024MI 45.0-49.9, adult 04/02/2024urrent fnvbza0304/02/2024 Encounters DateTypeDepartmentCare ToucOucxgrcaqvh70/29/2025Telephone [facility] [address] [phone] Katey Vang LPN Medical Advice/Questionfrom Last 3 Months Family History Medical HistoryRelationNameCommentsatherosclerosisFatherHyperlipidemiaMother HypertensionMotherParkinsonismMotherDiabetesSisterRelationNameStatusComments FatherMotherSister Social History Tobacco UseTypesPacks/DayYears UsedDateSmoking Tobacco: Every DayCigarettes Smokeless Tobacco: Never Tobacco Cessation:Counseling Given: Yes Alcohol UseStandard Drinks/WeekCommentsNever0 (1 standard drink = 0.6 oz pure alcohol)CommentsUnknownSex and Gender InformationValueDate RecordedSex Assigned at BirthNot on fileLegal VyhUneroe79/26/2022 10:05 AM ESTGender IdentityNot on fileSexual OrientationNot on file Last Filed Vital Signs Vital SignReadingTime TakenCommentsBlood Vezjxiwn787/7605/25/2024 11:41 AM EDT Ybpub990605/25/2024 11:41 AM EDTTemperature--Respiratory Rate--Oxygen Saturation-- Inhaled Oxygen Concentration--Wkezsq306 kg (229 lb)04/02/2024 3:05 PM EDTHeight 147.3 cm (4' 10 )04/02/2024 3:05 PM EDTBody Mass Index47.8604/02/2024 3:05 PM EDT Plan of Treatment DateTypeDepartmentCare Team (Latest Contact Info)Kfzmgtealbp77/01/2025 11:10 AM ESTOffice Visit [facility] [address] [phone] Tova Lawrence MD [address] [place] [address] 2, [address] [address] Health MaintenanceDue DateLast DoneCommentsCT Xavmibepghvx1961Colonoscopy 1Colorectal Cancer Jqxqkqbrs1961Diabetes: Hemoglobin A1C 1961iabetes: Urine Protein Qqvhcfisj1961FIT-DNA (Cologuard) 1961FIT1961HIV Utdgmtypd1961Lipid Panel1961igmoidoscopy 1961TSH Level1961MMR Vaccines (1 of 1 - Standard series)1962 Hepatitis C Rotffftep19/26/1979Pneumococcal Vaccine (1 of 2 - PCV)01/12/1980 Cervical Cancer Gqpregemr60/26/1982HPV/Mfmbdq1701/11/1982Pap Smear1982 DTaP/Tdap/Td Vaccines (1 - Tdap)01/11/19836325Zfpkujlyc07/26/2001RSV High Risk: (Elderly (60+) or Population) (1 - Risk 50-74 years 1-dose series) 2011Zoster Vaccines (1 of 2)2011Influenza Vaccine (#1)2025 08/23/2023, 06/22/2020, 05/19/2020, Additional history existsCOVID-19 Vaccine (3 - season)/, 11/07/2020Medicare Annual Wellness Visit (AWV)/4Diabetes: Retinopathy Tefewuwiz90/03/2025HIB VaccinesAged OutNo longer eligible based on patient's age to complete this topic HPV VaccinesAged OutNo longer eligible based on patient's age to complete this topicHepatitis A VaccinesAged OutNo longer eligible based on patient's age to complete this topicHepatitis B VaccinesAged OutNo longer eligible based on patient's age to complete this topicIPV VaccinesAged OutNo longer eligible based on patient's age to complete this topicMeningococcal VaccineAged OutNo longer eligible based on patient's age to complete this topicRotavirus VaccinesAged Out No longer eligible based on patient's age to complete this topic Insurance [address] [place], [place] [id number] Care Teams Team MemberRelationshipSpecialtyStart DateEnd Date Sisi Schafer, AUTO BODY ESTIMATOR-COPY LATHE TENDER [address] [place] [address] PCP - Bmbhufw71/22/22
--- OUTSIDE RECORDS SUMMARY | 2025-07-12 09:41 | XMS_ITS | Clinical Summary ---
Author Organization [facility] Address [id number] [address] [place] [address] Care Team Providers Care Railroad Police Officer Name Role Phone Unavailable Primary Care Provider Unavailabl e Social History Tobacco UseTypesPacks/DayYears UsedDateSmoking Tobacco: Never AssessedChildcare AnswerDate HxqnwhtuXffcmfmpsEecitjf67/12/2019EmploymentAnswerDate Recorded LuoesbqdxoRkuwfpi67/12/2019CommentsUnknownSex and Gender Information ValueDate RecordedSex Assigned at BirthNot on fileLegal EeuSwpwcw48/06/2015 11:32 AM EDTGender IdentityNot on fileSexual OrientationNot on file Plan of Treatment Health MaintenanceDue DateLast DoneCommentsDepression Krtrvnnrm81/26/1973Tobacco Bvbdkgmfu05/26/1973Adult BMI Degobjhlq99/26/1979DTaP,Tdap and Td Vaccines (1 - Tdap)01/12/1980Pap Smear1982Zoster (Shingles) Vaccine (1 of 2)2011 COVID-19 Vaccine (3 - season)504/, 11/07/2020Influenza Isbvcyh52/01/764522/11/2019, 05/19/2020, 07/07/2019, Additional history exists RSV ( or age 60+ yrs) (1 - 1-dose 75+ series)01/12/2036 Medical Devices Not on file Insurance
--- OUTSIDE RECORDS SUMMARY | 2025-07-12 09:41 | XMS_ITS | Patient Health Record ---
Author Organization [facility] in [place] Address [address] [place] [address] Care Team Providers Care Orchard Sprayer Name Role Phone Hanh Sisi Primary Care Provider Ramsey Silva [phone] Allergies Allergen (clinical drug ingredient) Drug/Non Drug Allergy documented on EMR Reaction Allergy Type Onset Date Status lisinopril Lisinopril cough Drug Allergy ActiveSubstance with 1-ozlrdcl-6-methylglutaryl-coenzyme A reductase inhibitor mechanism of action (substance)StatinsmyalgiasDrug AllergyActive Results Component Value Reference Range Notes UA (Urinalysis, Dipstix only - w/o micro) Reviewed date:04/02/2025 01:38:01 PM Interpretation: Performing Lab: Notes/Report: COLOR yellow Yellow - Carol - CLARITYclearClear - ClearGLUCOSE-0 - 133 MG/DLALBUMIN-NEG - NEG MG/DLBILIRUBIN0 NEG - NEG MG/DLSPECIFIC GRAVITY1.0151.001 - 1.738KZDWRAS0FUS - NEG MG/DLBLOOD, UR0PH, UR5.05 - 6KQQJTVVTOMO29.2 - 1 MG/RPHQZUHXS9GII - NEGESTERASE (LUPE)-NEG - NEG MG/DLCRP Reviewed date:11/10/2024 12:59:04 PM Interpretation: Performing Lab: Notes/Report: [facility] ,C Reactive Protein<0.50<=0.50 mg/dLPerforming Lab:see noteML - [facility] LBFOLATE Reviewed date:11/10/2024 12:59:04 PM Interpretation: Performing Lab: Notes/Report: [facility] ,Jvjlwq81.908.60-58.90 ng/mLPerforming Lab:see note - [facility] LB FREE T3 Reviewed date:11/10/2024 12:59:04 PM Interpretation: Performing Lab: Notes/Report: [facility] ,Free T31.342.18-3.98 pg/mLPerforming Lab:see noteML - [facility] LB GLYCOHEMOGLOBIN A1C Reviewed date:11/10/2024 12:59:04 PM Interpretation: Performing Lab: Notes/Report: [facility] ,Glycohemoglobin A1C6.14.5-6.2 % ACTION SUGGESTED ADA RECOMMENDED LIMIT 4.0 - 6.0 ADA THERAPEUTIC TARGET < 7.0 > 7.0 Estimated Average Ipmrpmg325Vporbvfisc Lab:see note - [facility] LB IRON Reviewed date:11/10/2024 12:59:04 PM Interpretation: Performing Lab: Notes/Report: [facility] ,Wamm077.050.0-170.0 ug/dLPerforming Lab:see note - [facility] LB MAGNESIUM Reviewed date:11/10/2024 12:59:04 PM Interpretation: Performing Lab: Notes/Report: [facility] ,Magnesium1.81.8-2.4 mg/dLPerforming Lab:[facility] PROF 14(COMP METB) Reviewed date:11/10/2024 12:59:04 PM Interpretation: Performing Lab: Notes/Report: [facility] ,Vkobun237053-397 mmol/LPotassium3.93.5-5.1 mmol/HUqjwgdcu9240-667 mmol/LCarbon Qmqydrj65.921.0-32.0 mmol/LAnion Gap12.1Dkdppvc23015-110 mg/dLBlood Urea Oijrqqfg14.07.0-18.0 mg/dLCreatinine1.020.55-1.02 mg/dLEstimated GFR ( Jeanette>60>=60 mL/min/1.73m 2Estimated GFR (Non- Ame55>=60 mL/min/1.73m 2 BUN Creatinine Ratio14.1Ftiafig8.38.5-10.1 mg/dLBilirubin Total0.30.2-1.0 mg/dL Aspartate Amino Jfrbwgbsfuv9914-25 U/LAlanine Dyifatouczvdqgnt0847-29 U/L Alkaline Yskybmkunpn68183-006 U/LTotal Protein7.06.4-8.2 g/dLAlbumin Level3.6 3.4-5.0 g/dLGlobulin3.4Albumin Globulin Ratio1.1Performing Lab:see note - [facility] LBT4 Reviewed date:11/10/2024 12:59:04 PM Interpretation: Performing Lab: Notes/Report: [facility] ,T4 Thyroxine6.704.80-13.90 ug/dLPerforming Lab:see noteMer[facility] LBTSH Reviewed date:11/10/2024 12:59:04 PM Interpretation: Performing Lab: Notes/Report: [facility] ,Thyroid Stimulating Hormone0.9000.358-3.740 uIU/mLPerforming Lab:see noteCleveland Clinic FoundationVITAMIN D 25 [place] Reviewed date:11/10/2024 12:59:04 PM Interpretation: Performing Lab: Notes/Report: [facility] ,Vitamin D30.9 20-<30 ng/mL Vit D insufficient >100 ng/mL Potential Toxicity <20 ng/mL Vit D deficient 30-100 ng/mL Vit D sufficient Performing Lab:see [facility] LBVitamin B6, Plasma Reviewed date:11/13/2024 09:22:32 AM Interpretation: Performing Lab: Notes/Report: [place] ,Vitamin B6, Ymywxm11.13.4-65.2 ug/L This test was developed and its performance characteristics determined by [facility]. It has not been cleared or Three Dimensional Map Modeler: Marbella Scales MD, Phone: [phone] Deficiency: <3.4 Adequate: >5.1 Marginal: 3.4 - 5.1 [address] [place], [place] [id number] Performed at: [facility] approved by the Food and Drug Administration. Performing Lab:see lennyOregon State Tuberculosis HospitalCBC AUTO DIFF Reviewed date:05/17/2025 03:14:19 PM Interpretation: Performing Lab: Notes/Report: [facility] ,White Blood Count9.54.0-11.0 10 3/uLRed Blood Count4.324.20-5.40 10 6/uL Irqeapbzbm59.012.0-16.0 g/rKFgqownuxnj83.836.0-48.0 %Mean Corpuscular Dcjihe12.4 81.0-99.0 fLMean Corpuscular Owxmxrwfdy56.426.7-34.0 pgMean Corpuscular HGB Conc 34.329.9-35.2 g/dLRed Cell Distribution Width14.211.0-15.0 %Platelet Bgawf435 150-450 10 3/uLMean Platelet Volume9.69.5-13.5 fLNeutrophils Percent Auto62.2 43.0-75.0 %Lymphocytes Percent Auto26.320.5-60.0 %Monocytes Percent Auto9.51.7- 12.0 %Eosinophils Percent Auto0.60.9-7.0 %Basophils Percent Auto0.80.2-2.0 % Immature Granulocytes Pct Auto0.60.0-0.5 %Neutrophils Absolute Auto5.91.4-6.5 10 3/uLLymphocytes Absolute Auto2.51.2-3.8 10 3/uLMonocytes Absolute Auto0.90.3-0.8 10 3/uLEosinophils Absolute Auto0.10.0-0.7 10 3/uLBasophils Absolute Auto0.10.0- 0.1 10 3/uLImmature Granulocytes Abs Auto0.060.00-0.03 10 3/uLPerforming Lab:see noteML - [facility] LBFREE T3 Reviewed date:05/17/2025 03:14:19 PM Interpretation: Performing Lab: Notes/Report: [facility] ,Free T31.012.18-3.98 pg/mLPerforming Lab:see noteML - [facility] LB PROF 14(COMP METB) Reviewed date:05/17/2025 03:14:19 PM Interpretation: Performing Lab: Notes/Report: [facility] ,Njwevz920875-210 mmol/LPotassium4.13.5-5.1 mmol/RYuzvxgqk7461-182 mmol/LCarbon Vysaeka59.721.0-32.0 mmol/LAnion Gap13.1Ovfdlhs3331-300 mg/dLBlood Urea Nitrogen 12.07.0-18.0 mg/dLCreatinine0.860.55-1.02 mg/dLEstimated GFR ( Jeanette>60 >=60 mL/min/1.73m 2Estimated GFR (Non- Angelic>60>=60 mL/min/1.73m 2BUN Creatinine Ratio14.7Dpzjagc8.38.5-10.1 mg/dLBilirubin Total0.40.2-1.0 mg/dL Aspartate Amino Bovnsbrvlcu4858-73 U/LAlanine Ecpxjafkeiztaymc02771-31 U/L Alkaline Kqacntrcevg65000-378 U/LTotal Protein7.56.4-8.2 g/dLAlbumin Level3.7 3.4-5.0 g/dLGlobulin3.8Albumin Globulin Ratio1.0Performing Lab:see noteML - [facility] LBT4 Reviewed date:05/17/2025 03:14:19 PM Interpretation: Performing Lab: Notes/Report: [facility] ,T4 Thyroxine8.304.80-13.90 ug/dLPerforming Lab:see noteML - [facility] LBTSH Reviewed date:05/17/2025 03:14:19 PM Interpretation: Performing Lab: Notes/Report: [facility] ,Thyroid Stimulating Hormone3.3300.358-3.740 uIU/mLPerforming Lab:see noteML - [facility] LBUS right upper quadrant Reviewed date:06/04/2025 11:25:59 AM Interpretation: Performing Lab: Notes/Report: [facility] [place] [address] [place] [address] Ultrasound Report Signed Patient: MILO WOMACK MR#: [id number] : 1960 Acct:[id number] Age/Sex: 65 / F ADM Date: 06/02/25 Loc: US Attending Dr: SISI SARAVIA Ordering Physician: SISI SARAVIA Date of Service: 06/02/25 Procedure(s): US right upper quadrant Accession Number(s): [id number] cc: SISI SARAVIA [place] [address] Patient Name: MILO WOMACK MRN: [id number] date: 1960 Sex: F Assigned Patient Location: US Current Patient Location: US Accession/Order Number: [id number] Exam Date: 06/02/2025 10:55 Report Date: 06/02/2025 11:47 At the request of: SISI SARAVIA Procedure: US right upper quadrant LIMITED ABDOMINAL ULTRASOUND - liver CLINICAL HISTORY: Elevated Liver Enzymes COMPARISON: None The gallbladder is physiologically distended. There is cholelithiasis as well as suspected gallbladder polyps. No wall thickening or pericholecystic fluid is seen. No intra- or extrahepatic biliary dilatation is evident. The common duct measures 4 - 5 mm. The liver is echogenic suggesting fatty infiltration. No intrahepatic masses are seen. There is appropriate hepatopetal flow within the main portal vein. The pancreas shows no significant sonographic abnormality. Evaluation of the right kidney reveals no hydronephrosis or fluid within Colin's pouch. US/US right upper quadrant IMPRESSION: FATTY LIVER. CHOLELITHIASIS AND GALLBLADDER POLYPS Impression dictated by: Mary Cerda M.D. 06/02/2025 11:47 AM Dictation Location: [place] [address] Electronically authenticated by: [id number] Y Date: 06/02/2025 11:47 Dictated By: Mary Cerda M.D. Signed By: 06/02/25 1149 DD/ 1147 TD/TT: Corporate Safety Director:Vitamin B12 Reviewed date:11/10/2024 12:57:11 PM Interpretation: Performing Lab: Notes/Report: Jair Reveles H31777014-3927 pg/mL Performed at: [facility] Three Dimensional Map Modeler: Checo Judge PhD, Phone: [phone] [address] [place], [place] [phone] Performing Lab:[facility] LBLAB TESTING Reviewed date:11/13/2024 09:22:49 AM Interpretation: Performing Lab: Notes/Report: [id number] Vitamin B2, Whole Blood [facility] ,Miscellaneous TestCOMMENT. Performed at: [facility] Three Dimensional Map Modeler: Checo Judge PhD, Phone: [phone] approved by the Food and Drug Administration. riboflavin in whole blood. This test was developed and its performance characteristics determined by [facility]. It has not been cleared or Reference interval reflects Flavin Adenine Dinucleotide Performed at: [facility] Vitamin B2, Whole Blood 320 ug/L (FAD), that accounts for approximately 90% of the total [address] [place], [place] [id number] Test Ordered: [id number] Vitamin B2, Whole Blood Three Dimensional Map Modeler: Marbella Scales MD, Phone: [phone] [address] [place], [place] [phone] Reference Range: 137-370 Performing Lab:[facility] LBCOPPER, SERUM or PLASMA Reviewed date:11/13/2024 09:19:08 AM Interpretation: Performing Lab: Notes/Report: [facility] ,Copper Waykf04441-827 ug/dL This test was developed and its performance characteristics Performed at: [facility] Three Dimensional Map Modeler: Marbella Scales MD, Phone: [phone] Detection Limit = [address] [place] [phone] approved by the Food and Drug Administration. determined by [facility]. It has not been cleared or Performing Lab:[facility] LBBNP Reviewed date:05/17/2025 03:14:20 PM Interpretation: Performing Lab: Notes/Report: [facility] ,NT Pro B Type Natriuretic Pept68.0<=900.0 pg/mLPerforming Lab:see note - [facility] LBLAB TESTING Reviewed date:11/22/2024 09:48:23 PM Interpretation: Performing Lab: Notes/Report: [id number] Vitamin B7 [facility] ,Miscellaneous TestCOMMENT. Performed at: [address] [id number] Vitamin B7 0.51 ng/mL Three Dimensional Map Modeler: Marbella Scales MD, Phone: [phone] Reference Range: 0.05-0.[address] [place] [phone] approved by the Food and Drug Administration. Performed at: [facility] Three Dimensional Map Modeler: Checo Judge PhD, Phone: [phone] This test was developed and its performance characteristics determined by [facility]. It has not been cleared or Test Ordered: [id number] Vitamin B7 Performing Lab:see [facility] LBCA echo doppler complete Reviewed date:11/10/2024 12:55:41 PM Interpretation: Performing Lab: Notes/Report: Source Facility: [place] [address] Cardiology Report Signed Patient: MILO WOMACK MR#: [id number] : 1960 Acct:[id number] Age/Sex: 64 / F ADM Date: 11/09/24 Loc: CARD Attending Dr: SISI SARAVIA Ordering Physician: SISI SARAVIA Date of Service: 11/09/24 Procedure(s): CA echo doppler complete Accession Number(s): [id number] cc: SISI SARAVIA Patient Name: MILO WOMACK MR#: [id number] : 1960 Exam Date: 11/09/2024 Ordering Doctor: SISI SARAVIA [facility] ECHOCARDIOGRAM REPORT PROCEDURE: CA ECHO DOPPLER COMPLETE [...] 3.39 mm[Hg] Right Atrium Dictated by: Ally Raymundo M.D. on 11/09/2024 at 19:12 Approved by: Ally Raymundo M.D. on 11/09/2024 at 19:15 Dictated By: ALLY RAYMUNDO Signed By: 11/09/241915 DD/ 14 TD/TT: Corporate Safety Director:LAB TESTING Reviewed date:11/22/2024 09:48:23 PM Interpretation: Performing Lab: Notes/Report: [id number] Vitamin K1 [facility] ,Miscellaneous TestCOMMENT. Three Dimensional Map Modeler: Marbella Scales MD, Phone: [phone] This test was developed and its performance characteristics [address] [place], [place] [id number] [address] [place] [phone] Reference Range: 0.10-2.20 approved by the Food and Drug Administration. Test Ordered: [id number] Vitamin K1 determined by [facility]. It has not been cleared or Three Dimensional Map Modeler: Checo Judge PhD, Phone: [phone] Vitamin K1 0.50 ng/mL BN Performed at: CB - [facility] [place] Performed at: BN - [facility] [place] Performing Lab:see noteLC - [facility] LB Reason For Referral Reason sciatica Diagnosis 1 Sciatica (M54.30) Referral Organization [facility] Referring Provider First Name Sisi Referring Provider Last Name Hanh Referring Provider [facility] Referred Provider Nitza Simeon Referred Provider Specialty Neurology Referral Priority Routine Reason constipation etc Diagnosis 1 Constipation (K59.00 ) Referral Organization [facility] Referring Provider First Name Sisi Referring Provider Last Name Hanh Referring Provider [facility] Referred Provider Terrance Cunha Referred Provider Specialty Gastroentero logy Referral Priority Routine Diagnosis 1 Bilateral lower extr emity edema (R60.0) Referral Organization [facility] Referring Provider First Name Sisi Referring Provider Last Name Hanh Referring Provider [facility] Referred Provider Specialty Vascular Leila grace Referral Priority Routine Diagnosis 1 Cholelithiasis (K80. 20) Diagnosis 2 Gall bladder polyp ( K82.4) Referral Organization [facility] Referring Provider First Name Sisi Referring Provider Last Name Hanh Referring Provider [facility] Referred Provider Laurel Cassidy Referred Provider Specialty Gastroentero logy Referral Priority Routine Medications Medication SIG (Take, Route, Frequency, Duration) Notes Start Date End Date Status CPAP Supplies - Mask and Tubing; Duration: 365 d ays 4ActiveMagnesium 400 MG1 tablet Orally Once a dayActiveTrelegy Ellipta 100-62.5-25 MCG/ACTINHALE 1 PUFF BY MOUTH ONCE DAILY; Duration: 30Active Cholecalciferol 50 MCG (2000 UT)1 tablet Orally Once a dayActivetraZODone HCl 50 MGTAKE 1 TABLET BY MOUTH EVERY DAY AT BEDTIME NEEDED FOR 30 DAYS; Duration: 90 daysActiveBaclofen 10 MGTAKE 1 TABLET BY MOUTH TWICE A DAY NEEDED; Duration: 90ActiveIrbesartan 150 MGTAKE 1 TABLET BY MOUTH EVERY DAY; Duration: 90ActiveNortriptyline HCl 50 MG1 capsule Orally Once a dayActiveIpratropium [place] 0.03 %SPRAY 2 SPRAYS INTO EACH NOSTRIL TWICE A DAY; Duration: 90PRN ActivePravastatin Sodium 40 MG1 tablet Orally Once a day; Duration: 30 days 5ActiveAlbuterol Sulfate (2.5 MG/3ML) 0.083%3 mL as needed Inhalation every 6 hrs; Duration: 7 ygdxPIK31/20/2023ActiveFamotidine 40 MG1 tablet Orally Once a dayActiveAzelastine HCl 0.05 %INSTILL 1 DROP INTO AFFECTED EYE TWICE A DAY; Duration: 84 daysPRNActiveGeodon 80 MG1 capsule with food Orally Twice a dayActiveAllopurinol 300 MGTAKE 1 TABLET BY MOUTH EVERY DAY; Duration: 90Active GarlicActiveAlbuterol Sulfate HFA 108 (90 Base) MCG/ACT1 puff as needed Inhalation every 4 hrs; Duration: 30 daysPRNActiveFish OilActiveLiothyronine Sodium 5 MCG2 tablet on an empty stomach Orally daily; Duration: 30 days 5ActiveSingulair 10 MG1 tablet Orally Once a day; Duration: 30 days 5ActiveLevothyroxine Sodium 150 MCG1 tablet in the morning on an empty stomach Orally Once a day; Duration: 90 daysActivePotassium Chloride ER 10 MEQ TAKE 1 TABLET BY MOUTH TWICE A DAY; Duration: 90ActivePolyethylene Glycol 3350 17 GM1 packet mixed with 8 ounces of fluid Oral Once a day prn; Duration: 30 daysPRNActiveTetracycline HCl 500 MG1 capsule on an empty stomach Orally every 12 hrs; Duration: 10 day(s)5Active Social History Tobacco Use: Social History Observation Description Date Details (start date - stop date) Current Smoker NA - NA Tobacco Use/Smoking Question Answer Notes Patient is a current smoker How often do you smoke cigarettes?every dayHow many cigarettes a day do you smoke?31 or moreHow soon after you wake up do you smoke your first cigarette? within 5 minutesAre you interested in quitting?Not ready to quitAlcohol Screen (Audit-C) Question Answer Notes Did you have a drink containing alcohol in the p ast year? No Geypfn1GicjgarpjpxpyrHsfhqbxaDXDGR-L (Standard) Question Answer Notes Did you have a drink containing alcohol in the p ast year? No Lfbpif3DrjotmyetwpggyFhbsgmpr Problems Problem Type SNOMED Code ICD Code Onset Dates Problem Status W/U Status Risk Notes Problem Obstructive sleep ap elder syndrome (disorder) (72870425) Obstructive sleep apnea (adult) (pediatric) (G47.33) ActiveconfirmedProblemHyperlipidemia (79023595)Hyperlipidemia, unspecified (E78.5)ActiveconfirmedProblemInsomnia (116828700)Insomnia, unspecified (G47.00) ActiveconfirmedProblemPeripheral vertigo (92634007)Other peripheral vertigo, unspecified ear (H81.399)ActiveconfirmedProblemSeasonal allergic rhinitis (642197402)Other seasonal allergic rhinitis (J30.2)ActiveconfirmedProblemChronic sinusitis (04272460)Chronic sinusitis, unspecified (J32.9)Activeconfirmed ProblemFibromyalgia (720227655)Fibromyalgia (M79.7)ActiveconfirmedProblem Palpitations (75545976)Palpitations (R00.2)ActiveconfirmedProblemImpaired fasting glucose (340193014)Impaired fasting glucose (R73.01)Activeconfirmed ProblemFatigue (03651108)Fatigue (R53.83)ActiveconfirmedProblemHyperlipidaemia (51874147)Hyperlipemia (E78.5)ActiveconfirmedProblemHypertension (31110117) Hypertension (I10)ActiveconfirmedProblemCigarette smoker (68734397)Cigarette smoker (F17.210)ActiveconfirmedProblemGastroesophageal reflux disease (487671158)GERD (gastroesophageal reflux disease) (K21.9)ActiveconfirmedProblem Hypothyroidism (30803714)Hypothyroidism (E03.9)ActiveconfirmedProblemObesity (188622484)Obesity (E66.9)ActiveconfirmedProblemArthritis (4636909)Arthritis (M19.90)ActiveconfirmedProblemDyspnea (507906250)Dyspnea (R06.00)Activeconfirmed ProblemChest pain (14717514)Chest pain of unknown etiology (R07.89)Active confirmedProblemShoulder pain (28762389)Shoulder pain (M25.519)Activeconfirmed ProblemVitamin D deficiency (43532574)Vitamin D deficiency (E55.9)Active confirmedProblemHidradenitis suppurativa (41819259)Hidradenitis suppurativa (L73.2)ActiveconfirmedProblemBack pain (912342944)Back pain (M54.9)Active confirmedProblemArthralgia of the pelvic region and thigh (511484628)Hip pain, right (M25.551)ActiveconfirmedProblemSinusitis (37894080)Sinusitis (J32.9)Active confirmedProblemNeuropathy (146670522)Neuropathy (G62.9)ActiveconfirmedProblem Constipation (62296101)Constipation (K59.00)ActiveconfirmedProblemBipolar affective disorder (74080555)Bipolar affective disorder (F31.9)Activeconfirmed ProblemSkin lesion (04754970)Skin lesion (L98.9)ActiveconfirmedProblem Cholelithiasis (049069616)Cholelithiasis (K80.20)ActiveconfirmedProblemPain of left knee region (finding) (430968109078356)Knee pain, left (M25.562)Active confirmedProblemSciatica (92731552)Sciatica (M54.30)ActiveconfirmedProblem Seasonal allergic rhinitis (259859511)Seasonal allergic rhinitis (J30.2)Active confirmedProblemPain in limb (34355446)Pain in left toe(s) (M79.675)Active confirmedProblemSciatica (22363595)Sciatic pain, left (M54.32)Activeconfirmed ProblemHyperglycemia (79374259)Blood glucose elevated (R73.9)Activeconfirmed ProblemSciatica (19562141)Sciatica, left (M54.32)ActiveconfirmedProblem Piriformis syndrome (585876526)Piriformis syndrome (G57.00)Activeconfirmed ProblemPain in wrist (29741277)Wrist pain, right (M25.531)ActiveconfirmedProblem Sacroiliac joint pain (893048465)Sacroiliac joint pain (M53.3)Activeconfirmed ProblemAcute gout (537479902)Acute gout (M10.9)ActiveconfirmedProblemShoulder joint pain (734231814)Pain in joint of left shoulder (M25.512)Activeconfirmed ProblemBody mass index 40+ - severely obese (113061180)BMI 50.0-59.9, adult (Z68.43)ActiveconfirmedProblemSciatica (71997259)Sciatic pain, right (M54.31) ActiveconfirmedProblemCholesterolosis of gallbladder (37633659)Gall bladder polyp (K82.4)ActiveconfirmedProblemAnnual wellness visit (516421133291439) Wellness examination (Z00.00)ActiveconfirmedProblemChronic venous insufficiency (82475843)Chronic venous insufficiency (I87.2)ActiveconfirmedProblemShoulder joint pain (672937048)Pain, joint, shoulder, right (M25.511)Activeconfirmed ProblemCardiovascular stress test abnormal (692935395)Abnormal cardiovascular stress test (R94.39)ActiveconfirmedProblemImpingement syndrome of shoulder region (796978217)Shoulder impingement syndrome, right (M75.41)Activeconfirmed ProblemDiabetes mellitus type 2 (01376333)Diabetes mellitus, type 2 (E11.9) ActiveconfirmedProblemOsteoarthritis of knee (149050256)Osteoarthritis of right knee (M17.11)ActiveconfirmedProblemLow back pain (finding) (256785823)Other low back pain (M54.59)ActiveconfirmedProblemNoncompliance with treatment (4682962) Noncompliance (Z91.199)Activeconfirmed Vital Signs Heart Rate 87 /min 05/17/2025 Uirzmmtswva73.7 degrees Hxlgycecuw60/29/2498Vrfdzwak37 %05/17/2025lood pressure bwoxezteu08 mm Hg07/12/20255113Gnzciv72 in07/12/2025lood pressure umgrlazm030 mm Hg07/12/20251127Yvhepc924.8 lbs109/11/2024BMI50.85 kg/m207/12/2025 Procedures Procedure Date Ordered Date Performed Result Body Sit e Echocardiogram 10/21/2024 N/TCviydaauijlfra19/29/2025N/A Encounters Encounter Location Date Provider Diagnosis [address] [address] 04/12/2025 Sisi Hanh Arthritis M19.90 and Constipation K59.[address] [address] 09/01/2024 Sisibecka Saravia Sciatica M54.30 ; Bronchitis J40 and Hidradenitis suppurativa L73.[address] [address] 09/21/2024 Ramsey Hoy Acute bronchitis, unspecified organism J20.[address] [address] 10/21/2024 Sisi Saravia Fatigue R53.83 ; Richard ma R60.9 and Shortness of breath R06.[address] [address] 11/23/2024 Sisi Saravia Chronic venous insufficiency I87.2 ; Other seasonal allergic rhinitis J30.2 and Sciatica M54.30 [address] [place] [address] 01/29/2025 Sisibecka Saravia Sciatica M54.30 ; Hidradenitis suppurativa L73.2 ; Other seasonal allergic rhinitis J30.2 and Fibromyalgia M79.7 [place] [address] [place] [address] 03/10/2025 Sisibecka Saravia Sciatica, left M54.[address] [place] [address] 07/21/2024 Sisibecka Saravia Bronchitis J40 [address] [address] 08/26/2024 Sisibecka Saravia Sinusitis J32.9 ; Wellness examination Z00.00 and Hypertension I10 [place] [address] [place] [address] 07/12/2025 Sisibecka Saravia Edema leg R60.0 and Hyperlipemia E78.[address] [place] [address] 05/17/2025 Sisibecka Saravia Lower extremity jacki a R60.0 and Bipolar affective disorder F31.[address] [address] 05/21/2025 Sisi Saravia Chronic venous insufficiency I87.[address] [place] [address] 04/02/2025 Sisi Saravia Lower abdominal pain R10.[address] [place] [address] 10/19/2024 Sisibecka Saravia Acute bronchitis, unspecified organism J20.9 [place] [address] [place] [address] 10/21/2024 Sisibecka Saravia [place] [address] [place] [address] 10/28/2024Pamelmarce SaraviaAcute bronchitis, unspecified organism J20.9[address] [address]/ Sisi [facility] [facility] [place] [address]/Pamela [facility] [facility] [place] [address]/Pamela CramerVitamin D deficiency E55.9 ; Hypothyroidism E03.9 and Wellness examination Z00.00[facility] ([place], [place])[address] [facility] [address]/06/2025Pamela [facility] [facility] [address] 12/29/2024Pamela [place] [facility] [facility] [place] [address]/[facility]St[facility] [facility] [address]/[facility] [facility] [address] [facility] [place] [address]/Pamela Hanh Urinary frequency R35.0[facility] ([place], [place])[address] [facility] [place] [address]/Pamela [facility] [address] [facility] [place] [address]/Pamela CramerLoose stools R19.5[facility] [facility] [place] [address] 04/13/2025Pamela CramerArthritis M19.90[facility] ([place], [place])[address] [facility] [place] [address]/11/2024Pamela CramerSciatica, left M54.32[facility] ([place], [place])[address] [facility] [place] [address]/Pamela CramerHypothyroidism E03.9 and Elevated liver enzymes R74.8[place] [address] [place] [place] [address]/10/2024Pamela CramerBilateral lower extremity edema R60.0[facility] ([place], [place])[address] [place] [facility] [place] [place] [address]/01/2025 Sisibecka LeyvamerBuMt[facility] [place] [address]/Pamela CramerCholelithiasis K80.20 and Gall bladder polyp K82.4[place] [address] [place] [address] 06/07/2025Pamela Hanh Assessments Encounter Date Diagnosis (ICD Code) Assessment Notes Treatment Notes Treatment Clinical Notes Section Notes 07/21/2024 Bronchitis (ICD-10 - J40) defers flu, covid testing monitor pulse ox, to ER if needed 08/26/2024Sinusitis (ICD-10 - J32.9)09/01/2024Sciatica (ICD-10 - M54.30)refusing referrals PT, pain man or imaging at this time5Bronchitis (ICD-10 - J40)5Acute bronchitis, unspecified organism (ICD-10 - J20.9)Rest and drink more liquids, especially water. You may use a humidifier or vaporizer to help keep the drainage moist. Dynj-qtk-dbildii Nasal Saline may help the stuffy and runny nose. Use Ibuprofen and or Tylenol as needed for fever, chills, body aches or pain. Children 5 years old should not be given homh-zkn-olnqewf cough and cold medications such as guaifenesin and dextromethorphan. If you're over age 5, you may try sxeh-rrv-wwcujcz cold medications such as guaifenesin and dextromethorphan, or multi-symptom cold reliever such as Dayquil to help reduce the symptoms. Antibiotics have been prescribed. You should take these until completed and follow the directions. Antibiotics can sometimescause upset stomach, and in rare cases, serious [...] go to the emergency room or call [phone] (ICD-10 - R53.83) pt checking with sleep center about changing to mask echo had recent stress test recommend getting labs drawn that were ordered 10/21/2024Edema (ICD-10 - R60.9)01/29/2025Sciatica (ICD-10 - M54.30)01/29/2025 Hidradenitis suppurativa (ICD-10 - L73.2)03/10/2025Sciatica, left (ICD-10 - M54.32) flared up last week unable to make it into PT due to pain Kenalog 80 steroid taper fu with neurosurg considering pain man referral, let office know 04/02/2025Lower abdominal pain (ICD-10 - R10.30)04/12/2025rthritis (ICD-10 - M19.90)04/12/2025onstipation (ICD-10 - K59.00) continue miralax requesting referral to different GI for consult 05/17/2025Lower extremity edema (ICD-10 - R60.0) double lasix rest of week, fu if not improving work on diet, increase activity as tolerated stopped celebrex- contributing has gained 30 lbs last year, some of water wt 11/23/2024hronic venous insufficiency (ICD-10 - I87.2) wt loss needed recent echo and US legs looked ok add lasix daily 05/21/2025hronic venous insufficiency (ICD-10 - I87.2) has gained wt increased sedentary lately wasnt taking meds increase lasix dose to 40 mg over weekend, dont skip HCTZ limit salt, elevate legs, discussed michelle jay, has some, cant get on vein clinic referral pending echo 07/12/2025Edema leg (ICD-10 - R60.0)5Acute bronchitis, unspecified organism (ICD-10 - J20.9)5Acute bronchitis, unspecified organism (ICD- 10 - J20.9)11/13/2024Vitamin D deficiency (ICD-10 - E55.9)11/13/2024 Hypothyroidism (ICD-10 - E03.9)04/02/2025Urinary frequency (ICD-10 - R35.0) 04/12/2025Loose stools (ICD-10 - R19.5)04/13/2025rthritis (ICD-10 - M19.90) 04/22/2025Sciatica, left (ICD-10 - M54.32)05/17/2025Hypothyroidism (ICD-10 - E03.9)05/17/2025Elevated liver enzymes (ICD-10 - R74.8)05/21/2025ilateral lower extremity edema (ICD-10 - R60.0)06/04/2025holelithiasis (ICD-10 - K80.20) 06/04/2025Gall bladder polyp (ICD-10 - K82.4)07/12/2025Hyperlipemia (ICD-10 - E78.5)11/23/2024Other seasonal allergic rhinitis (ICD-10 - J30.2)05/17/2025 Bipolar affective disorder (ICD-10 - F31.9) recent flare fu with psych as scheduled 01/29/2025Other seasonal allergic rhinitis (ICD-10 - J30.2)10/21/2024Shortness of breath (ICD-10 - R06.02) try taking albuterol before gets out of bed in am discussed smoking cessation cant tolerate wellbutrin or chantix did not get chest xray , encouraged to get done 09/01/2024Hidradenitis suppurativa (ICD-10 - L73.2)08/26/2024Wellness examination (ICD-10 - Z00.00)requesting multiple labs08/26/2024Hypertension (ICD-10 - I10) encouraged medication compliance BP elevated, did not take meds today 01/29/2025Fibromyalgia (ICD-10 - M79.7) doesnt think is problem weaning self off cymbalta 11/23/2024Sciatica (ICD-10 - M54.30) requesting referral to [facility]- injections? has seen pain man in past 11/13/2024Wellness examination (ICD-10 - Z00.00)08/26/2024Otherreschedule swallow study, fu GI Plan Of Treatment Pending Test Test Name Order Date CMP (COMPLETE METABOLIC PANEL) 4 UA (URINALYSIS, COMPLETE) 05/08/2023 UA (URINALYSIS, COMPLETE) 08/15/2023 UA (URINALYSIS, COMPLETE) 10/17/2023 UA (URINALYSIS, COMPLETE) 12/18/2023 UA (URINALYSIS, COMPLETE) 04/02/2025 CULTURE, STOOL 04/12/2025 CULTURE, URINE w SENSITIVITY 12/18/2023 HEMOGLOBIN A1C (GLYCO) 08/26/2024 HEMOGLOBIN A1C (GLYCO) 10/17/2023 IRON, TOTAL 10/17/2023 LIPID PANEL (CHOL/TRIG/HDL/LDL) 10/17/19 CBC WITH DIFF 10/17/2023 VITAMIN D, 25 [...] 04/19/2023 US DAFNE DOP LEG BELÉN 10/21/2024 US DAFNE DOP LEG LT 07/12/2025 XR KNEE LT 3V 07/12/2025 THYROID PANEL (T4/TSH/FREE T3) 4 THYROID PANEL (T4/TSH/FREE T3) 5 THYROID PANEL (T4/TSH/FREE T3) 5 THYROID PANEL (T4/TSH/FREE T3) 5 THYROID PANEL (T4/TSH/FREE T3) 5 XR chest [...] End Date [place] [address] [place] [id number] Nick Womackvipin - patient is the insuredMEDICAID [facility] [address] [place], [place] [id number], AldoAlvarovipin - patient is the insured Medications Administered Medication Instructions Date of Administration Dosage Notes Kenalog-40 460 mgKetorolac Tmzkjakvclkr51/01/558175 mgKetorolac Tromethamine 460 mgKetorolac Jayudniiioni32/14/236370 mgTriamcinolone 40 mg/ml 480 mgTriamcinolone 40 mg/ml580 mgTriamcinolone 40 mg/ml 580 mgTriamcinolone 40 mg/ml580 mg Medical (General) History Medical History History [...] affective disorder F31.9 Surgical History Surgery Date(Month/Year) Left- Middle Digit Right- Knee ReplacementUterus RemovalC SectionHospitalization History Reason Date(Month/Year) see above
--- OUTSIDE RECORDS SUMMARY | 2025-07-12 09:41 | XMS_ITS | Patient Health Record ---
Author Organization [facility] Address [address] [place] [address] Care Team Providers Care Fashion Editor Name Role Phone Elvis Sarah Primary Care Provider [phone] Dr. Lorenzo Mehta Unavailable [phone] Reason For Referral No Information Encounters Encounter Location Date Provider Diagnosis [facility] [address] [place] [address] 08/20/[address] [facility] [place] [address]/06/2025 Lorenzo Bahompmonica loss of teeth, unspecified cause, class I K08.101[facility] [place] [address]/05/2025Joph [facility] Other dental procedure status Z98.818[facility] [place] [address]/[facility] PakhanhSt[facility] [place] [address]/06/2025[facility] with abnormal findings Z01.21[facility] [place] [address]/Joph [facility] Assessments Encounter Date Diagnosis (ICD Code) Assessment Notes Treatment Notes Treatment Clinical Notes Section Notes 10/26/2024 Other dental procedure status (I CD-10 - Z98.818) 02/11/2025Complete loss of teeth, unspecified cause, class I (ICD-10 - K08.101) 09/29/2024Encounter for dental examination and cleaning with abnormal findings (ICD-10 - Z01.21) Plan Of Treatment No Information Insurance Providers Payer Name Payer Address Payer Phone Subscriber Number Group Number Insured Name Patient Relationship to Insured Coverage Start Date Coverage End Date [place] [address] [place] [id number] Larry WOMACK - patient is the [id number] 2024
--- OUTSIDE RECORDS SUMMARY | 2025-07-12 09:41 | XMS_ITS | Clinical Summary ---
Author Organization [facility] Address [address] [place] [address] Care Team Providers Care Operating Room Specialist Name Role Phone Sisi Schafer MD Unavailable [phone] Allergies Active AllergyReactionsCriticalityNoted DateCommentsAmoxicillinOtherLow 01/18/2023 Other Reaction(s): yeast infection CnxeteaptxQbdiIur71/02/2698LdyoXepjRjq23/02/2023 Medications MedicationSigDispense QuantityRefillsLast FilledStart DateEnd DateStatus ziprasidone (Geodon) 20 MG capsule Take 20 mg by mouthActive Geodon 80 MG capsule Take 80 mg by mouth every 12 (twelve) hoursActive triamcinolone (Kenalog) 0.1 % cream Apply 1 application topically in the morning and 1 application before bedtime. Active traZODone (Desyrel) 50 MG tablet Take 50 mg by mouth 1 (one) time each day at the same time01/07/2023ctive irbesartan (Avapro) 150 MG tablet Take 150 mg by mouth in the morning.Active levothyroxine (Synthroid, Levoxyl) 150 MCG tablet Take 150 mcg by mouth in the morning. Take before meals.Active nortriptyline (Pamelor) 50 MG capsule Take 50 mg by mouth at bedtimeActive Trelegy Ellipta 100-62.5-25 MCG/ACT aerosol powder Inhale 1 puff in the morning.02/08/2024ctive MAGNESIUM PO Take 500 mg by mouthActive b complex vitamins capsule Take 1 capsule by mouth DailyActive allopurinol (Zyloprim) 300 MG tablet Take by mouthActive hydroCHLOROthiazide (HYDRODiuril) 25 MG tablet Take 25 mg by mouth DailyActive liothyronine (Cytomel) 5 MCG tablet Take by mouth DailyActive montelukast (Singulair) 10 MG tablet Take by mouthActive furosemide (Lasix) 20 MG tablet Take by mouthActive famotidine (Pepcid) 10 MG tablet Take by mouthActive albuterol HFA 90 mcg/act inhaler Inhale 2 puffs every 4 (four) hours if needed for wheezingActive phytonadione (Vitamin K) 100 MCG tablet Take by mouthActive potassium chloride ER (Micro-K) 10 MEQ ER capsule Take 10 mEq by mouth in the morning and 10 mEq before bedtime. Do not crush or chew.Active diclofenac (Voltaren) 75 MG EC tablet Take 75 mg by mouth in the morning and 75 mg before bedtime. Do not crush, chew, or split.Active predniSONE (Deltasone) 10 MG tablet Indications:Primary osteoarthritis of left ankleTake twice daily for 5 days, then take once daily for 5 days. 15 tablet 5Active Active Problems ProblemNoted DateDiagnosed DateArthritis of lumbar spine12/23/2023Sedentary gymnudkqb45/06/2024ervical hdeggpevngayf64/12/2024 Encounters DateTypeDepartmentCare SfdhRvgwfqvxciy82/30/2025Telephone [facility] [address] [facility] [address] [place] [address] Delroy Felix PTA 05/05/2025 12:00 PM EDTTreatment [facility] [address] [facility] [address] [place] [address] Delroy Felix, LINDA Spondylosis without myelopathy or radiculopathy, lumbosacral region (Primary Dx); Arthritis of lumbar spine; Sedentary jihiqqoad35/17/2025amboo flowsheet [facility] [address] [facility] [address] [place] [address] Delroy Felix PTA 05/05/20256805Riruor21/12/2025 2:00 PM EDTTreatment [facility] [address] [place] [address] Delroy Felix [employer] Spondylosis without myelopathy or radiculopathy, lumbosacral region (Primary Dx); Arthritis of lumbar spine; Sedentary locqwptmq79/12/2025amboo flowsheet [facility] [address] [place] [address] Delroy Felix, [employer] E[employer]IST 04/30/20258945Tjasek81/08/2025 11:00 AM EDTTreatment [facility] [address] [place] [address] Delroy Felix [employer] Spondylosis without myelopathy or radiculopathy, lumbosacral region (Primary Dx); Arthritis of lumbar spine; Sedentary njyrjprws48/08/2025amboo flowsheet [facility] [address] [facility] [address] [place] [address] Delroy Felix, [employer] E[employer]IST 04/26/20252764Xzjjhc84/05/2025 11:00 AM EDTEvaluation [facility] [address] [facility] [address] [place] [address] Leny Chacon, JANA Spondylosis without myelopathy or radiculopathy, lumbosacral region (Primary Dx) 04/23/2025Plan of Care Documentation [facility] [address] [facility] [address] [place] [address] 04/23/2025amboo flowsheet [facility] [address] [facility] [address] [place] [address] Leny Chacon, PT 04/23/2025Travelfrom Last 3 Months Immunizations ImmunizationAdministration DatesNext DueInfluenza, injectable, MDCK, preservative free, xtlkorbxuidu30/30/2018Influenza, injectable, quadrivalent, preservative free08/23/2023,06/22/2020,05/19/2020,07/07/2019,06/23/2018, 05/22/2016Influenza, seasonal, injectable, preservative free07/25/2015 Family History Medical HistoryRelationNameCommentsCoronary artery diseaseFatherDiabetesMaternal GrandfatherPapaw samplesParkinsonismMotherDiabetesSisterTinaRelationNameStatus CommentsFatherDeceasedMaternal GrandfatherPapaw samplesAliveMotherDeceasedSister TinaAlive Social History Tobacco UseTypesPacks/DayYears UsedDateSmoking Tobacco: Every DayCigarettes Passive Smoke Exposure: PastSmokeless Tobacco: Never Tobacco Cessation:Ready to Q uit: Not Asked; Counseling Given: Not Answered Alcohol UseStandard Drinks/WeekCommentsNever0 (1 standard drink = 0.6 oz pure alcohol)CommentsUnknownSex and Gender InformationValueDate RecordedSex Assigned at BirthNot on fileLegal XqvMnglyt01/15/2023 7:47 PM EDTGender Identity Not on fileSexual OrientationNot on file Last Filed Vital Signs Vital SignReadingTime TakenCommentsBlood Ysoaysdp124/8212/30/2024 2:32 PM EDT Jryqt023212/30/2024 2:32 PM EDTTemperature--Respiratory Rate--Oxygen Bopfcnynxq83% 12/30/2024 2:32 PM EDTInhaled Oxygen Concentration--Trneyq229 kg (245 lb 3.2 oz) 01/06/2025 9:15 AM CBKTzztwi495.3 cm (4' 10 )01/06/2025 9:15 AM EDTBody Mass Index51.25001/06/2025 9:15 AM EDT Plan of Treatment Health MaintenanceDue DateLast DoneCommentsCT Dukruxirsoad1961Colonoscopy 1Colorectal Cancer Zytvcjoxo1961FIT-DNA1961FIT1961 FOBT1961Umaedwwxmluci1961ap Smear1982Cervical Cancer Vicjopmhr22/26/1991HPV/Qcabwt7701/11/19911076Sptxqdwer99/26/2001COVID-19 Vaccine ( season)504/, 11/07/2020Influenza Vaccine (#1)2025 08/23/2023, 06/22/2020, 05/19/2020, Additional history existsPneumococcal Vaccine: Pediatrics (0 to 5 Years) and At-Risk Patients (6 to 64 Years)Aged Out No longer eligible based on patient's age to complete this topic Insurance * Guarantor: Milo Womack TypeRelation to PatientDate of BirthPhone Billing AddressPersonal/McdkssRomf1960 [address] [address] Care Teams Team MemberRelationshipSpecialtyStart DateEnd Sisi Schafer MD [address] [place] [address] Primary Care ProviderFamily [facility]12/24/24
--- OUTSIDE RECORDS SUMMARY | 2025-07-12 09:51 | XMS_ITS | CCD ---
Author Organization [facility] ion Partnership [facility] Care Team Providers Care Chemical Production Technician Name Role Phone Sisi Saravia Unavailable Unavailable Unavailable Nahid Landry Unavailable Nimco Lawson Unavailable Katina Padilla Unavailable Osvaldo Roberts II Unavailable IDALMIS Saravia Primary Care Provider [phone] MAIKEL Orosco Attending Provider [phone] MD Osvaldo Roberts II Attending Provider IDALMIS Saravia Primary Care Provider [phone] MAIKEL Orosco Attending Provider [phone] MD Luis Miguel Garibay Attending Provider Carol Avilez Unavailable IDALMIS Saravia Primary Care Provider MD Osvaldo Roberts II Attending Provider MD Luis Miguel Garibay Attending Provider MAIKEL Orosco Attending Provider MAIKEL Quintanilla Emergency Provider MD Piper Tate Admit Provider MD Piper Tate Attending Provider Sisi Saravia Referring Unav ailable Traboulssi, Dr. Bernardo Attending Unavaila ble Traboulssi, Dr. Bernardo Referring Unavaila ble Traboulssi, Dr. Bernardo Attending Unavaila ble Traboulssi, Dr. Bernardo Referring Unavaila ble Traboulssi, Dr. Bernardo Attending Unavaila ble RANI, SISI Admitting Unavailable RANI, SISI Attending Unavailable RANI, SISI Primary Care Unavailable RANI, SISI Consulting Unavailable HOY, DR ROJAS Admitting Unavailable HOY, DR ROJAS Attending Unavailable RANI, SISI Primary Care Unavailable HOY, DR ROJAS Consulting Unavailable ZIEBER, DR TIMOTHY Bedolla Consulting Unavailable RANI, SISI Admitting Unavailable RANI, SISI Attending Unavailable RANI, SISI Primary Care Unavailable RANI, SISI Consulting Unavailable Rani, SIMONIZER-C Sisi Isabella Primary Care Provider [phone] MAIKEL Orosco Attending Provider IDALMIS Saravia Sisi Isabella Attending Provider [phone] Fransisco Kemp Unavailable Rick Alberto Unavailable Jet Bansal Unavailable IDALMIS Saravia Sisi Isabella Primary Care Provider MAIKEL Orosco Attending Provider [phone] MD Jet Bansal Attending Provider IDALMIS Saravia Sisi Isabella Primary Care Provider Rani HOLLINS, Sisi Unavailable Unallocated, Noms Provider Primary Care Provider IDALMIS Saravia Sisi Isabella Primary Care Provider MD Jesu Velazquez Attending Provider [phone] IDALMIS Saravia Sisi Isabella Primary Care Provider MD Jet Bansal Attending Provider BRITTANEY Kenny Emergency Provider MD Jesu Velazquez Attending Provider IDALMIS Saravia Sisi Isabella Primary Care Provider MD Jet Bansal Attending Provider IDALMIS Saravia Sisi Isabella Primary Care Provider [phone] MD Jesu Velazquez Attending Provider MD Osvaldo Roberts II Attending Provider IDALMIS Saravia Sisi Isabella Primary Care Provider MD Jesu Velazquez Attending Provider IDALMIS Saravia Sisi Isabella Primary Care Provider MD Jesu Velazquez Attending Provider [phone] Connor [facility] Tabitha Llanos Emergency Provider NOMAN HENRIQUEZ Attending Unavailable RANI, SISI S Primary Care Unavailable Rani SCRATCHER-PROTOCOL MANAGER, Sisi S Primary Care Provider IDALMIS Saravia Sisi Isabella Primary Care Provider MD Jesu Velazquez Attending Provider [phone] NOMAN HENRIQUEZ Referring Unavailable RANI, SISI S Primary Care Unavailable NOMAN HENRIQUEZ Referring Unavailable RANI, SISI S Primary Care Unavailable NOMAN HENRIQUEZ Referring Unavailable RANI, SISI S Primary Care Unavailable Unallocated , Noms Provider Primary Care Provi hubert Unallocated , Noms Provider Primary Care Provi hubert Rani HOLLINS, Sisi Unavailable Rani HOLLINS, Sisi Unavailable ERIKA OROSCO Attending Unavailable UNALLOCATED, NOMS PROVIDER Referring Unava ilable ERIKA OROSCO Referring Unavailable ERIKA OROSCO Referring Unavailable ASHLEY YOUNG Attending Unavailable RANI, SISI Referring Unavailable SP WAN Attending Unavailable LENY CHACON Attending Unavailable TUROVSKAYA, LINDA Referring Unavailable HEAVEN BECK Attending Unavailable TUROVSKAYA, LINDA Referring Unavailable HEAVEN BECK Attending Unavailable TUROVSKAYA, LINDA Referring Unavailable EBONY, HEAVEN Attending Unavailable ONDINA, LINDA Referring Unavailable SISI SARAVIA Primary Care Physician Sarahovskaya, Linda Admitting Unavailable Sarahyolyaya, Linda Attending Unavailable Sisi Saravia Primary Care Unavailable Jesu Velazquez Admitting Unavailab le Jesu Velazquez Attending Unavailab Sisi Kingsley Primary Care Unavailable Laurel Cassidy Attending Unavailable Allergies Allergy ClassificationReported Allergen(s)Allergy TypeDate of OnsetReaction(s) FacilityAnti-Epileptic Agents (1 source)gabapentinDrug Icfxrqo10-24-8276GgqpxapzhGwhgxstatMarietta Osteopathic ClinicAtenolol (1 source)AtenololDrug Lrfdvaa76-71-0014guwoTriHealth Bethesda North Hospitalpregabalin (1 source)pregabalinDrug Zmkrrtz84-63-7790PutrxrcezVaevyaoxrUK Healthcare (20 sources)Amoxicillin; Translations: [amoxicillin]Drug Hqstbjp83-69-7059Qlpyd [facility] Work Phone: (20 sources)AtenololDrug Sllctdo03-73-7679tbooTriHealth Bethesda North Hospital (20 sources)LisinoprilAllergy to uqkroszmm06-54-2361UkbdHTBG Healthcare (20 sources)TalcDrug Gaxzpal98-56-5153XlotKGVX Healthcare (12 sources)gabapentin; Translations: [GABAPENTIN]Drug Rbguuqv75-04-6331 [facility] (12 sources)pregabalin; Translations: [PREGABALIN]Drug Rpyqgbo38-36-7198 [facility] (11 sources)Doxycycline; Translations: [DOXYCYCLINE]Drug Dduejse20-11-8955 PalpitationsUk [facility] (8 sources)Benld; Translations: [LITHIUM]Drug Bgijhww31-05-9114Exikomeqanxwon [facility] (2 sources)dapagliflozin; Translations: [dapagliflozin]Drug Rpbnlja27-38-9241 [facility] (1 source)AtenololDrug Xugpjra83-40-7828CmpsuaqukUk Healthcare Repository Medications Current Medications MedicationDrug Class(es)DatesSig (Normalized)Sig (Original)0.25 MG, 0.5 MG Dose 3 ML semaglutide 0.68 MG/ML Pen Injector [Ozempic] (1 source)Start: 55-37-2186Zifgvti (0.25 or 0.5 MG/DOSE) 2 MG/3ML 0.25 mg for one month and then increase to 0.5 mg dose Subcutaneous weekly for 30 May, Active3 ML semaglutide 1.34 MG/ML Pen Injector [Ozempic] (5 sources)Start: 84-72-2998fulfky 1 mg by subcutaneous injection every week Ozempic (1 MG/DOSE) 4 MG/3ML 1 mg as directed Subcutaneous weekly for 30 days Apr, Activeinject 1 mg by subcutaneous injection every weekOzempic (1 MG/DOSE) 4 MG/3ML INJECT 1MG SUBCUTANEOUSLY ONCE A WEEK for 30 Active3 ML semaglutide 2.68 MG/ML Pen Injector [Ozempic] (9 sources)Start: 67-25-6998fpsaeq 2 mg by subcutaneous injection every week Ozempic (2 MG/DOSE) 8 MG/3ML 2 mg Subcutaneous weekly for 30 days Jul, Activeinject 2 mg by subcutaneous injection every weekOzempic (2 MG/DOSE) 8 MG/3ML INJECT 2 MG SUBCUTANEOUSLY ONCE A WEEK for 28 days Activeinject 2 mg by subcutaneous injection every weekOzempic (2 MG/DOSE) 8 MG/3ML INJECT 2 MG SUBCUTANEOUSLY ONCE A WEEK for 28 Activeacetaminophen 500 mg oral tablet (9 sources)take 1 tablet by mouth twice dailyacetaminophen (Tylenol) 500 mg tablet Take 1 tablet (500 mg) by mouth 2 times a day. Activetake 1 tablet by mouth three to four times dailyTylenol 8 Hour 650 MG Oral Tablet Extended Release TAKE 1 TABLET 3-4 TIMES DAILY. Quantity: 0 Refills: 0 Ordered: 25-Aug-2021 DO ActiveAllegra Allergy (7 sources)Berenice Allergy Activeallopurinol 300 mg oral tablet (20 sources)Xanthine Oxidase InhibitorStart: 55-47-7935szsx 1 mg by mouth once dailyallopurinol 300 mg Tab mg tab(s), Oral, Daily, Refills(s) 0 Start Date: 05/05/25 Status: Ordered Repeat number: 1azelastine hydrochloride 0.5 mg/ml ophthalmic solution (20 sources)Histamine-1 Receptor AntagonistStart: 64-24-4590ltpfntufsv 0.05% Opth Mikaela drop(s), BID, Refill(s) 0 Start Date: 05/05/25 Status: Ordered Repeat number: 1Start: 11-12-2022 End: 02-15-5727brkk 1 drop(s) into the eye(s) twice dailyAzelastine Discontinued 1 DROPS EYE-BOTH Twice daily November 12, 2022 12:00am July 24, 2023 10: 05amStart: 01-04-3288Fnouuwnkcr HCl - 0.05 % Ophthalmic Solution Quantity: 12 Refills: 0 Ordered: 16-Jun-2021 DO Start :16-Jun-2021 Activetake 1 drop(s) into the eye(s) twice dailyazelastine (Optivar) 0.05 % ophthalmic solution INSTILL 1 DROP INTO AFFECTED EYE TWICE A DAY Activetake 1 drop(s) into the eye(s) twice dailyAzelastine HCl 0.05 % 1 drop into affected eye Ophthalmic Twice a day Not-Takingtake 1 drop(s) into the eye(s) once dailyAzelastine HCl - 0.05 % Ophthalmic Solution INSTILL 1 DROP IN BOTH EYES EVERY 12 HOURS DAILY. Quantity: 0 Refills: 0 Ordered: 10-Jul-2022 DO Activeb complex 0.4 mg tablet (6 sources)take 1 tablet by mouth once dailyb complex 0.4 mg tablet Take 1 tablet by mouth once daily. Activeb complex vitamins capsule (20 sources)take 1 capsule by mouth once dailyb complex vitamins capsule Take 1 capsule by mouth Daily ActiveBaclofen (2 sources)gamma-Aminobutyric Acid-ergic AgonistStart: 95-54-1010kafghmrl Oral, TID, Refills(s) 0 Start Date: 05/05/25 Status: Ordered Repeat number: 1Start: 61-63-7008oupa 5 mg by mouth once dailyBaclofen Active 5 MG PO Daily June 15, 2024 12:00amCelebrex (1 source)Nonsteroidal Anti-inflammatory DrugStart: 22-09-8031Ksvoyhhe Oral, Refills(s) 0 Start Date: 05/05/25 Status: Ordered Repeat number: 1cetirizine hydrochloride 10 mg oral capsule (20 sources)Histamine-1 Receptor AntagonistStart: 84-61-8721zjtdvgmqrs 10 mg oral capsule 10 mg = 1 cap(s), Oral, Daily, PRN for allergy symptoms, # 40 cap(s),Refills(s) 0 Start Date: 05/05/25 Status: Ordered Quantity: 40.0 Unit: cap(s) Repeat number: 1Start: 01-02-2024 End: 75-02-2191uypa 1 tablet by mouth once dailyCetirizine (Zyrtec) 10 mg tablet Discontinued 10 MG PO Daily January 02, 2024 12:00am June 15, 2024 11:05am cholecalciferol 0.025 mg oral capsule (11 sources)Vitamin DStart: 08-97-9422ftgo 25 ug by mouth once daily Cholecalciferol (Vitamin D3) Active 25 MCG PO Daily January 02, 2024 12:00am DULoxetine 30 mg delayed release oral capsule (1 source)Serotonin and Norepinephrine Reuptake InhibitorStart: 59-96-0454cunu 30 mg by mouth once dailyDuloxetine Active 30 MG PO Daily June 15, 2024 12:00amduloxetine 20 mg Cap-DR (1 source)Start: 00-57-9070psnthkrhxh 20 mg Cap-DR Oral, Refills(s) 0 Start Date: 05/05/25 Status: Ordered Repeat number: 1ezetimibe 10 mg oral tablet (19 sources)Dietary Cholesterol Absorption InhibitorStart: 57-34-6384nruo 1 mg by mouth once dailyezetimibe 10 mg Tab mg tab(s), Oral, Daily, Refills(s) 0 Start Date: 05/05/25 Status: Ordered Repeatnumber: 1Start: 07-24-2023 End: 34-02-2659tlvr 10 mg by mouth once dailyEzetimibe Discontinued 10 MG PO Daily July 24, 2023 1:00am January 02, 2024 1:25pmEzetimibe Activefamotidine 40 mg oral tablet (20 sources)Histamine-2 Receptor AntagonistStart: 12-09-7138pipi 1 mg by mouth once daily at bedtimePepcid 40 mg Tab mg tab(s), Oral, Once a day (at bedtime), Refills(s) 0 Start Date: 05/05/25 Status:Ordered Repeat number: 1Start: 66-79-0242exmh 1 tablet by mouth once daily at bedtimeFamotidine (Pepcid) 40 mg tablet Active 40 MG PO Daily at bedtime June 15, 2024 12:00amStart: 06-24-2022 End: 65-06-2758fslc 1 tablet by mouth once dailyFamotidine (Pepcid) 20 mg tablet Discontinued 20 MG PO Daily June 24, 2022 12:00am November 12, 2022 10:48amfamotidine (Pepcid) 10 MG tablet Take by mouth Activefexofenadine (5 sources)Histamine-1 Receptor AntagonistAllegra Lrsgko55 actuat fluticasone furoate 0.1 mg/actuat / umeclidinium 0.0625 mg/actuat / vilanterol 0.025 mg/ac tuat dry powder inhaler (20 sources)Anticholinergic, Corticosteroid, beta2-Adrenergic AgonistStart: 64-48-5417vpfx 1 puff(s) by inhalation in the morningTrelegy Ellipta 100-62.5-25 MCG/ACT aerosol powder Inhale 1 puff in the morning. 02/08/2024 ActiveStart: 22-33-0255cxkx 1 puff(s) by inhalation once dailyTrelegy Ellipta 100-62.5-25 mcg blister with device Inhale 1 puff once daily. 02/08/2024 ActiveStart: 64-59-3972Hulvstgirea-Umeclidin-Vilanter (Trelegy Ellipta) 100-62.5-25 mcg blister with device Active 1 INH INHALATION Daily January 02, 2024 12:00amStart: 11-12-2022 End: 67-48-1282Ewaaekelefo-Umeclidin-Vilanter (Trelegy Ellipta) 100-62.5-25 mcg blister with device Discontinued 1INH INHALATION Daily November 12, 2022 12:00am January 02, 2024 1:25pmStart: 86-15-5721Hvbygmwicdb-Umeclidin-Vilanter (Trelegy Ellipta) 100-62.5-25 mcg blister with device Active 1 INH INHALATION Daily November 12, 2022 12:00amStart: 67-01-2721Ryjnavpbhif-Umeclidin-Vilanter (Trelegy Ellipta) 100-62.5-25 mcg blister with device Active 1 INH INHALATION Daily November 11, 2022 11:00pmfurosemide 20 mg oral tablet (18 sources)Loop DiureticStart: 09-62-7723denf 1 mg by mouth once dailyLasix 20 mg Tab mg tab(s), Oral, Daily, Refills(s) 0 Start Date: 05/05/25 Status: Ordered Repeat number: 1Garlic preparation (6 sources)Non-Standardized Food Allergenic ExtractGarlic Active hydroCHLOROthiazide 25 mg oral tablet (20 sources)Thiazide DiureticStart: 46-27-6397oeqg 1 mg by mouth once daily hydrochlorothiazide 25 mg Tab mg tab(s), Oral, Daily, Refills(s) 0 Start Date: 05/05/25 Status: Ordered Repeat number: 1hydroCHLOROthiazide 12.5 mg / irbesartan 150 mg oral tablet (5 sources)Thiazide Diuretic, Angiotensin 2 Receptor BlockerStart: 01-02-2024 take 1 tablet by mouth once dailyIrbesartan-Hydrochlorothiazide Active 1 TAB PO Daily January 02, 2024 12:00amIpratropium (1 source)AnticholinergicStart: 36-14-9719yboilfqumee mcg, QID, Refills(s) 0 Start Date: 05/05/25 Status: Ordered Repeat number: 1irbesartan 150 mg oral tablet (20 sources)Angiotensin 2 Receptor BlockerStart: 00-16-1697botc 1 mg by mouth once dailyirbesartan 150 mg Tab mg tab(s), Oral, Daily, Refills(s) 0 Start Date: 05/05/25 Status: Ordered Repeat number: 1Start: 22-00-2535uvuk 150 mg by mouth twice dailyIrbesartan Active 150 MG PO Twice daily June 21, 2022 11:00pm Start: 05-05-2020 End: 64-20-4611nvub 150 mg by mouth once dailyIrbesartan Discontinued 150 MG PO Daily June 22, 2022 12:00am January 02, 2024 1:25pmlevothyroxine sodium 0.15 mg oral tablet (20 sources)l-ThyroxineStart: 53-00-5679gflk 1 tablet by mouth once daily levothyroxine 150 mcg (0.15 mg) Tab mcg tab(s), Oral, Daily, Refills(s) 0 Start Date: 05/05/25 Status: Ordered Repeat number: 1Start: 39-92-9981vcqm 150 ug by mouth once dailyLevothyroxine Active 150 MCG PO Daily June 22, 2022 12:00am take 1 tablet by mouth once daily in the morningLevothyroxine Sodium 150 MCG 1 tablet in the morning on an empty stomach Orally Once a day ActiveLevothyroxine Sodium Activeliothyronine sodium 0.005 mg oral tablet (18 sources)l-TriiodothyronineStart: 54-25-7062bvno 1 ug by mouth once daily liothyronine 5 mcg Tab mcg tab(s), Oral, Daily, Refills(s) 0 Start Date: 05/05/25 Status: Ordered Repeat number: 1take 1 tablet by mouth once dailyliothyronine (Cytomel) 5 MCG tablet Take by mouth Daily ActiveMagnesium (20 sources)Start: 42-35-9438xzzg 250 mg by mouth once dailyMagnesium Active 250 MG PO Daily January 02, 2024 12:00amMAGNESIUM PO Take 500 mg by mouth Activetake 1 tablet by mouth in the morningmagnesium 250 mg tablet Take 1 tablet (250 mg) by mouth early in the morning.. Activemagnesium oxide 400 mg oral tablet (1 source)Start: 29-91-2364wkyo 1 mg by mouth once dailymagnesium oxide 400 mg Tab mg tab(s), Oral, Daily, Refills(s) 0 Start Date: 05/05/25 Status: Ordered Repeat number: 1Singulair (20 sources)Leukotriene Receptor AntagonistStart: 15-40-0651Xuwhfdvzy Daily, Refills(s) 0 Start Date: 05/05/25 Status: Ordered Repeat number: 1montelukast (Singulair) 10 MG tablet Take by mouth Activenaproxen 500 mg delayed release oral tablet (11 sources)Nonsteroidal Anti-inflammatory Drug End: 16-52-9041ddop 1 tablet by mouth in the morningnaproxen (EC Naprosyn) 500 MG EC tablet Take 500 mg by mouth in the morning and 500 mg in the evening. 12/23/2024 Discontinued (Therapy completed)Nitro Sublingual 0.4 0.4mg (20 sources)Nitro Sublingual 0.4 0.4mg 1 Sublingual Every 5min x3 Active nortriptyline 50 mg oral capsule (20 sources)Tricyclic AntidepressantStart: 49-09-6458yvjs 1 mg by mouth three times dailynortriptyline 50 mg oral capsule mg cap(s), Oral, TID, Refills(s) 0 Start Date: 05/05/25 Status: Ordered Repeat number: 1Start: 40-68-3636njzc 50 mg by mouth at bedtimeNortriptyline Active 50 MG PO Bedtime June 22, 2022 12:00amOmega 3 Fish Oil (6 sources)[place] 3 Fish Oil Activeomega 6-cxx-lqc-fish oil (Fish OiL) 1,200 (144-216) mg capsule (6 sources)take 1 capsule by mouth in the morningomega 3-cuv-vft-fish oil (Fish OiL) 1,200 (144-216) mg capsule Take 1 capsule (1,200 mg) by mouth early in the morning.. Activeomeprazole 40 mg delayed release oral capsule (20 sources)Proton Pump InhibitorStart: 25-60-4631akdb 1 mg by mouth once daily omeprazole 40 mg Cap-DR mg cap(s), Oral, Daily, Refills(s) 0 Start Date: 05/05/25 Status: Ordered Repeat number: 1Start: 11-12-2022 End: 29-11-7368ateh 1 capsule by mouth in the morningomeprazole (PriLOSEC) [address] capsule Take 40 mg by mouth in the morning and 40 mg in the evening. 01/09/2024 12/23/2024 Discontinued (Therapy completed)Start: 05-05-2020 Omeprazole 40 MG Oral Capsule Delayed Release as needed Quantity: 0 Refills: 0 Ordered: 61-Wwy-0608HX Start : 05-May-2020 Activetake 1 capsule by mouth twice dailyomeprazole (PriLOSEC) [address] capsule Take 1 capsule (40 mg) by mouth 2 times a day. Activepantoprazole 40 mg delayed release oral tablet (1 source)Proton Pump InhibitorStart: 70-28-4735mlit 40 mg by mouth once daily Pantoprazole Active 40 MG PO Daily June 15, 2024 12:00amMiralax (20 sources)Osmotic LaxativeStart: 57-69-6295hgzp 1 g by mouth once dailyMiraLax gm, Oral, Daily, Refill(s) 0 Start Date: 05/05/25 Status: Ordered Repeat number: 1Start: 06-22-2022 End: 07-52-7769Fgzdyqdruzkw Glycol 3350 (Miralax) 17 gram/dose Powder Discontinued 4 GM PO Daily June 22, 2022 12:00am November 12, 2022 10:49am MiraLax PRN ActiveMiraLax ActivePolyethylene Glycol 3350 (Miralax) 17 gram powder in packet (1 source)Start: 49-55-6808Mjhlbsshtphv Glycol 3350 (Miralax) 17 gram powder in packet Active 17 GM PO Daily June 15, 2024 12:00amPotassium Chloride (20 sources)Start: 00-83-1875sueyrqlun chloride Refills(s) 0 Start Date: 05/05/25 Status: Ordered Repeat number: 1Start: 08-28-2023 End: 37-01-5718pagb 10 mEq by mouth twice dailyPotassium Chloride Discontinued 10 MEQ PO Twice daily August 28, 2023 1:00am October 23, 2023 9:31amStart: 78-95-1849plmi 10 mEq by mouth once dailyPotassium Chloride Active 10 MEQ PO Daily August 28, 2023 12:00amStart: 03-12-2021 End: 85-22-9872aane 10 mEq by mouth twice dailyPotassium Chloride Discontinued 10 MEQ PO Twice daily November 12, 2022 12:00am July 24, 2023 10:07amtake 1 capsule by mouth in the morningpotassium chloride ER (Micro-K) 10 MEQ ER capsule Take 10 mEq by mouth in the morning and 10 mEq before bedtime. Do not crush or chew. Activepravastatin sodium 40 mg oral tablet (13 sources)HMG-CoA Reductase InhibitorStart: 03-40-1992oajh 1 mg by mouth once dailypravastatin 40 mg Tab mg tab(s), Oral, Daily, Refills(s) 0 Start Date: 9/17/25 Status: Ordered Repeat number: 1Start: 07-24-2023 End: 86-57-0397rmzy 40 mg by mouth once dailyPravastatin Discontinued 40 MG PO Daily July 24, 2023 1:00am August 28, 2023 10:49ampredniSONE 10 mg oral tablet (20 sources)Start: 01-04-6736ozfrwiDSVH (Deltasone) 10 MG tablet Indications: Primary osteoarthritis of left ankle Take twice daily for 5 days, then take once daily for 5 days. 15 tablet 01/06/2025 ActiveStart: 03-24-2024 End: 95-67-6101evtc 20 mg by mouth twice dailyPrednisone Discontinued 20 MG PO Twice daily 05 23March 24, 2024 12:00am June 15, 2024 11:07amStart: 11-11-2023 End: 99-97-0867lzbv 40 mg by mouth once daily at mealtimePrednisone Discontinued 40 MG PO Daily November 11, 2023 12:00am January 02, 2024 1:26pm administerwith food or milkStart: 06-24-2022 End: 58-49-2562Rnethjovvy Discontinued 40 MG PO Daily 10 June 24, 2022 12:00am November 12, 2022 10:49am days 11-21 of therapyprednisone 20 MG as directed Orally once a day for 5 days Active0.25 mg, 0.5 mg dose 1.5 ml semaglutide 1.34 mg/ml pen injector (5 sources)Ozempic (0.25 or 0.5 MG/DOSE) 2 MG/1.5ML 0.5 mg Subcutaneous weekly ActiveOzempic (0.25 or 0.5 MG/DOSE) 2 MG/1.5ML 0.25 mg for one month and then increase to 0.5 mg dose Subcutaneous weekly for 30 days ActivetraZODone hydrochloride 50 mg oral tablet (20 sources)Serotonin Reuptake InhibitorStart: 50-73-3021mezo 100 mg by mouth once dailyTrazodone Active 100 MG PO Daily January 02, 2024 12:00amStart: 07-24-2023 End: 34-76-5835otuk 100 mg by mouth once daily at bedtimeTrazodone Discontinued 100 MG PO Daily at bedtime July 24, 2023 1:00am October 23, 2023 9:31am Start: 07-50-3537gbqm 1 tablet by mouth once dailytraZODone (Desyrel) 50 MG tablet Take 50 mg by mouth 1 (one) time each day at the same time 01/07/2023 Activetake 2 tablets by mouth once daily at bedtime as needed for sleeptraZODone (Desyrel) 50 mg tablet TAKE 2 TABLETS BY MOUTH EVERY DAY AT BEDTIME NEEDED FOR SLEEP ActiveTrelegy Ellipta (7 sources)Start: 76-79-1619Mykdtwb Ellipta Inhalation, Daily, Refills(s) 0 Start Date: 05/05/25 Status: Ordered Repeat number: 1Trelegy Ellipta Active triamcinolone acetonide 1 mg/ml topical cream (20 sources)Corticosteroidtriamcinolone (Kenalog) 0.1 % cream Apply 1 application topically in the morning and 1 application before bedtime. Active Turmeric Root Extract (5 sources)Start: 51-06-6862nhjh 500 mg by mouth once dailyTurmeric Root Extract Active 500 MG PO Daily January 02, 2024 12:00amturmeric root extract 500 mg capsule (6 sources)take 1 capsule by mouth in the morningturmeric root extract 500 mg capsule Take 1 capsule by mouth early in the morning.. ActiveTylenol Arthritis Pain (20 sources)Tylenol Arthritis Pain Prn ActiveTylenol Arthritis Pain Not-Taking Tylenol Arthritis Pain ActiveVitamin D3 (6 sources)Vitamin D3 Activevitamin k 0.1 mg oral tablet (14 sources)phytonadione (Vitamin K) 100 MCG tablet Take by mouth Activevitamin K2 (5 sources)Start: 96-98-5387lirk 180 ug by mouth once dailyVitamin K2 Active 180 MCG PO Daily January 02, 2024 12:00amvitamin K2 180 mcg capsule (6 sources)take 1 capsule by mouth in the morningvitamin K2 180 mcg capsule Take 1 capsule by mouth early in the morning.. Activeziprasidone 80 mg oral capsule (20 sources)Atypical AntipsychoticStart: 93-33-8793kmtk 1 mg by mouth twice dailyGeodon 80 mg Cap mg cap(s), Oral, BID, Refills(s) 0 Start Date: 05/05/25 Status: Ordered Repeat number: 1Start: 07-24-2023 End: 23-58-1775boqm 40 mg by mouth once dailyZiprasidone Hcl Discontinued 40 MG PO Daily July 24, 2023 1:00am January 02, 2024 1:26pmStart: 08-18-2020 End: 98-92-3410mrrx 20 mg by mouth once daily in the morningZiprasidone Hcl Discontinued 20 MG PO Every morning June 22, 2022 12:00am July 24, 2023 10:08amStart: 08-18-2020 End: 84-70-1212scnz 80 mg by mouth at bedtimeZiprasidone Hcl Discontinued 80 MG PO Bedtime June 22, 2022 12:00am January 02, 2024 1:26pmtake 1 capsule by mouth every twelve hoursGeodon 80 MG capsule Take 80 mg by mouth every 12 (twelve) hours Activetake 1 capsule by mouth every twelve hoursZiprasidone HCl 20 MG 1 capsule with food Orally Twice a day Active Completed/Discontinued Medications MedicationDrug Class(es)DatesSig (Normalized)Sig (Original)[id number] actuat albuterol 0.09 mg/actuat metered dose inhaler (20 sources)beta2-Adrenergic AgonistStart: 06-22-2022 End: 25-40-1744iefm 1 puff(s) by inhalation every four hoursAlbuterol Sulfate (Ventolin Hfa) 90 mcg/actuation HFA aerosol inhaler Discontinued 2 PUFF INHALATION Q4H June 22, 2022 12:00am January 02, 2024 1:16pmStart: 09-21-2020 take 1-2 puff(s) by inhalation every four to six hours as neededAlbuterol Sulfate HFA 108 (90 Base) MCG/ACT Inhalation Aerosol Solution INHALE 1 TO 2 PUFFS EVERY 4TO 6 HOURS NEEDED. Quantity: 0 Refills: 0 Ordered: 21-Sep-2020 DO Start : 21-Sep-2020 ActiveStart: 68-46-2581ovle 1-2 puff(s) by inhalation every four to six hours as neededAlbuterol Sulfate HFA 108 (90 Base) MCG/ACT Inhalation Aerosol Solution INHALE 1 TO 2 PUFFS EVERY 4TO 6 HOURS NEEDED. Quantity: 0 Refills: 0 Ordered: 21-Sep-2020 DO Start : 21-Sep-2020 Activetake 2 puff(s) by inhalation every four hours for wheezingalbuterol HFA 90 mcg/act inhaler Inhale 2 puffs every 4 (four) hours if needed for wheezing Activetake 2 puff(s) by inhalation every four hours as neededtake 2 puff(s) by inhalation every four hours as neededVentolin HFA Activetake 2 puff(s) by inhalation every four hours as neededAlbuterol Sulfate HFA 108 (90 Base) MCG/ACT 2 puff as needed Inhalation every 4 hrs Activetake 1 puff(s) by inhalation every four hours as neededAlbuterol Sulfate HFA 108 (90 Base) MCG/ACT 1 puff as needed Inhalation every 4 hrs Activetake 1 puff(s) by inhalation every four hours as needed Albuterol Sulfate HFA 108 (90 Base) MCG/ACT 1 puff as needed Inhalation every 4 hrs Activeamoxicillin 875 mg oral tablet (5 sources)Penicillin-class AntibacterialStart: 78-76-0833rytn 1 tablet by mouth every twelve hoursAmoxicillin 875 MG 1 tablet Orally every 12 hrs for 7 days Mar, Not-Takingaspirin 81 mg oral tablet (20 sources)Platelet Aggregation Inhibitor, Nonsteroidal Anti-inflammatory Drug Start: 11-12-2022 End: 61-96-1382ejac 81 mg by mouth once dailyAspirin Discontinued 81 MG PO Daily November 12, 2022 12:00am July 24, 2023 10:05amStart: 30-12-3757gava 1 tablet by mouth once dailyAspirin 81 MG Oral Tablet Delayed Release TAKE 1 TABLET DAILY. Quantity: 90 Refills: 3 Ordered: 10-Jul-2022 Noman Henriquez MD Start : 25-Aug-2021 Activeazithromycin 500 mg oral tablet (14 sources)Macrolide AntimicrobialStart: 06-24-2022 End: 23-76-8014xglq 500 mg by mouth once dailyAzithromycin Discontinued 500 MG PO Daily 12 21June 24, 2022 12:00am November 12, 2022 10:42amB-Complex With Vitamin C (5 sources)Start: 01-02-2024 End: 57-34-8742dcif 1 tablet by mouth once dailyB-Complex With Vitamin C Discontinued 1 TAB PO Daily January 02, 2024 12:00am June 15, 2024 11:05am Start: 09-63-6752czsx 1 tablet by mouth once dailyB-Complex With Vitamin C Active 1 TAB PO Daily January 02, 2024 12:00amcarvedilol 3.125 mg oral tablet (12 sources)alpha-Adrenergic Poli, beta-Adrenergic BlockerStart: 08-25-2021 take 1 tablet by mouth twice daily at mealtimeCarvedilol 3.125 MG Oral Tablet TAKE 1 TABLET TWICE DAILY WITH MEALS. Quantity: 180 Refills: 3 Ordered: 25-Aug-2021 Noman Henriquez MD Start : 25-Aug-2021 Activecefdinir 300 mg oral capsule (14 sources)Cephalosporin AntibacterialStart: 06-24-2022 End: 48-27-6173fwdo 300 mg by mouth twice dailyCefdinir Discontinued 300 MG PO Twice daily 05 23June 24, 2022 12:00am November 12, 2022 10:42am Ciprofloxacin / Dexamethasone (12 sources)Corticosteroid, Quinolone AntimicrobialStart: 11-12-2022 End: 14-27-6801Dlojmbyhxrppq-Dexamethasone Discontinued 4 DROPS OTIC Twice daily November 12, 2022 12:00am 2022 10:05amStart: 11-12-2022 End: 55-37-5978Rkvcyqrzxqvry-Dexamethasone Discontinued 4 DROPS OTIC Twice daily November 11, 2022 11:00pm 2022 9:05amcyclobenzaprine hydrochloride 5 mg oral tablet (2 sources)Muscle RelaxantStart: 03-24-2024 End: 24-14-8732skel 5 mg by mouth three times dailyCyclobenzaprine Discontinued 5 MG PO Three times daily March 24, 2024 12:00am June 15, 2024 11:06am diclofenac sodium 75 mg delayed release oral tablet (20 sources)Nonsteroidal Anti-inflammatory DrugStart: 06-22-2022 End: 75-32-6549bauk 75 mg by mouth twice dailyDiclofenac Sodium Discontinued 75 MG PO Twice daily June 22, 2022 12:00am January 02, 2024 1:16pmDiclofenac 75 mg 1tabler BID ActiveDiclofenac 75 mg xBID ActiveDiclofenac Activeempagliflozin 10 mg oral tablet (10 sources)Sodium-Glucose Cotransporter 2 InhibitorStart: 10-23-2023 End: 98-89-5853eqgh 1 mg by mouth once dailyEmpagliflozin Discontinued MG PO Daily October 23, 2023 1:00am January 02, 2024 1:25pm FreeTextSig: daily orally; Note: Source Status: Taking; Provider: Zoë Chaudhary ( )take 10 mg by mouth once dailyJARDIANCE 10 mg daily orally Activeetodolac 500 mg oral tablet (14 sources)Nonsteroidal Anti-inflammatory DrugStart: 06-22-2022 End: 20-52-7398Ctfbnukd Discontinued MG TABLET June 22, 2022 12:00am June 22, 2022 5:29pmfluticasone propionate 0.05 mg/actuat metered dose nasal spray (20 sources)CorticosteroidStart: 09-02-2023 End: 32-82-5647qimy 1 spray(s) nasal route once dailyFluticasone Propionate Discontinued 1 SPRAY INTRANASAL Daily October 22, 2023 1:00am June 15, 2024 11:06am FreeTextSi spray in each nostril Nasally Once a day; Note: Source Status: Taking;Start: 06-22-2022 End: 75-33-6829Powoevpfsbe Propionate Discontinued 2 SPRAY INTRANASAL Daily June 22, 2022 12:00am October 10:48amtake 1 spray(s) nasal route once dailyFluticasone Propionate 50 MCG/ACT 1 spray in each nostril Nasally Once a day Activetake 1 spray(s) nasal route once dailyFluticasone Propionate 50 MCG/ACT 1 spray in each nostril Nasally Once a day ActiveFluticasone Propion-Salmeterol (14 sources)Corticosteroid, beta2-Adrenergic AgonistStart: 06-24-2022 End: 71-11-9827Hrjyxclqdop Propion-Salmeterol (Advair Diskus) 250-50 mcg/dose blister with device Discontinued 1 INH INHALATION Twice daily 60 June 24, 2022 12:00am November 12, 2022 10:48amStart: 06-24-2022 End: 33-06-4651Lizochhhrla Propion-Salmeterol (Advair Diskus) 250-50 mcg/dose blister with device Discontinued 1 INH INHALATION Twice daily 60 June 23, 2022 11:00pm November 12, 2022 9:48amStart: 75-42-5346Fdhpqccyqgl Propion- Salmeterol (Advair Diskus) 250-50 mcg/dose blister with device Active 1 INH INHA LATION Twice daily 60 June 23, 2022 11:00pmgabapentin 300 mg oral capsule (6 sources)Anti-epileptic Agenttake 1 capsule by mouth every twenty-four hours Gabapentin 300 MG 1 capsule Orally Once a day Not-Taking/PRNhydrocortisone 10 mg/ml / neomycin 3.5 mg/ml / polymyxin b 82652 unt/ml otic solution (9 sources)Aminoglycoside Antibacterial, Polymyxin-class Antibacterial, CorticosteroidStart: 92-62-8087Vraywxat-Polymyxin-HC 3.5-96257-9 4 drops into affected ear Otic Three times a day for 7 day(s) Mar, Not-Taking hydrOXYzine pamoate 25 mg oral capsule (20 sources)AntihistamineStart: 11-12-2022 End: 66-68-0228lscc 25 mg by mouth twice dailyHydroxyzine Pamoate Discontinued 25 MG PO Twice daily November 12, 2022 12:00am July 24, 2023 10:06amStart: 08-68-1975naym 1 capsule by mouth twice dailyhydrOXYzine Pamoate 25 MG Oral Capsule TAKE 1 CAPSULE TWICE DAILY. Quantity: 0 Refills: 0 Ordered: 11-Aug-2021 DO Start : 11-Aug-2021 Activetake 1 tablet by mouth every twelve hours hydrOXYzine HCl 25 MG 1 tab(s) p.o. bid Activeibuprofen 600 mg oral tablet (12 sources)Nonsteroidal Anti-inflammatory DrugStart: 41-60-7601uive 1 tablet by mouth four times dailyIbuprofen 600 MG Oral Tablet TAKE 1 TABLET 4 TIMES DAILY. Quantity: 0 Refills: 0 Ordered: 19-Jul-2021 DO Start : 16-Dec-2020 Active ketoconazole 20 mg/ml topical cream (14 sources)Azole AntifungalStart: 06-22-2022 End: 09-11-8112Gxjpmdoskdlp Discontinued 1 APPLIC TOPICAL Daily June 22, 2022 12:00am November 12, 2022 10:49amlidocaine 0.05 mg/mg medicated patch (2 sources)Antiarrhythmic, Amide Local AnestheticStart: 03-24-2024 End: 36-57-4672tllen 1 dose topically once dailyLidocaine Discontinued 1 PATCH TOPICAL Daily March 24, 2024 12:00am June 15, 2024 11:06amleave on most painful area for up to 12 hrsmetFORMIN hydrochloride 500 mg oral tablet (7 sources)BiguanideStart: 73-66-0701bkqm 1 tablet by mouth twice daily at mealtimemetFORMIN HCl - 500 MG Oral Tablet TAKE 1 TABLET TWICE DAILY WITH FOOD. Quantity: 0 Refills: 0 Ordered: 28-Oct-2020 DO Start : 28-Oct-2020 Active Multivitamin preparation (12 sources)Start: 11-12-2022 End: 28-01-8353ptbr 1 tablet by mouth once dailyMultivitamin Discontinued 1 TAB PO Daily November 12, 2022 12:00am October 09, 2023 9:19amStart: 11-12-2022 End: 81-81-3367kjak 1 tablet by mouth once dailyMultivitamin Discontinued 1 TAB PO Daily November 11, 2022 11:00pm October 09, 2023 8:19amStart: 11-12-2022 take 1 tablet by mouth once dailyMultivitamin Active 1 TAB PO Daily November 11, 2022 11:00pmnabumetone 500 mg oral tablet (5 sources)Nonsteroidal Anti-inflammatory DrugStart: 01-02-2024 End: 16-46-7880wcuo 500 mg by mouth twice dailyNabumetone Discontinued 500 MG PO Twice daily January 02, 2024 12:00am June 15, 2024 11:06amnitroglycerin 0.4 mg sublingual tablet (3 sources)Nitrate VasodilatorStart: 50-05-7405Cmrkalfntfmfv 0.4 MG Sublingual Tablet Sublingual PL[address] 1 TABLET UNDER THE TONGUE EVERY 5 MINUTES FOR UP TO 3 DOSES NEEDED FOR CHEST PAIN.CALL 911 IF PAIN PERSISTS. Quantity: 0 Refills: 0 Ordered:03-Jul-2021 DO Start : 03-Jul-2021 ActiveOzempic (1 MG/DOSE) SOPN (1 source)Ozempic (1 MG/DOSE) SOPN INJECT 1 UNIT Weekly Quantity: 0 Refills: 0 Ordered: 10-Jul-2022 DO Activepyridostigmine bromide 30 mg oral tablet (20 sources)Start: 01-09-2024 End: 99-74-5303nero 30 mg by mouth twice dailyPyridostigmine [place] Discontinued 30 MG PO Twice daily January 09, 2024 12:00am June 15, 2024 1 1:20amStart: 08-28-2023 End: 39-14-7519bjky 30 mg by mouth three times dailyPyridostigmine [place] Discontinued 30 MG PO Three times daily August 28, 2023 10:51am June 15, 2024 11:07amStart: 11-12-2022 End: 14-01-7234elji 60 mg by mouth twice dailyPyridostigmine [place] Discontinued 60 MG PO Twice daily 60 November 12, 2022 12:00am August 28, 2023 10:51am End: 87-95-7528tqhtxefsnrucbt (Mestinon) 30 MG tablet every 8 (eight) hours. 12/23/2024 Discontinued (Therapy completed)regadenoson (Lexiscan) injection 0.4 mg (1 source)Start: 05-25-2024 End: .4 mg, intravenous, Once, On Sat05/25/24 at 1200, For 1 dose rosuvastatin calcium 40 mg oral tablet (20 sources)HMG-CoA Reductase InhibitorStart: 04-13-2021 End: 56-12-0701fhmx 40 mg by mouth once dailyRosuvastatin Discontinued 40 MG PO Daily November 12, 2022 12:00am July 24, 2023 10:09amSemaglutide (14 sources)Start: 06-22-2022 End: 45-26-2318zgawdp 1 mg by subcutaneous injection two times weeklySemaglutide (Ozempic) 1 mg/dose (4 mg/3 mL) pen injector Discontinued 1 MG SUBCUT Twice a Week June 22, 2022 12:00am July 24, 2023 10:07am wednesdaysStart: 06-22-2022 End: 61-10-8803ucndzs 1 mg by subcutaneous injection two times weeklySemaglutide (Ozempic) 1 mg/dose (4 mg/3 mL) pen injector Discontinued 1 MG SUBCUT Twice a Week June 21, 2022 11:00pm July 24, 2023 9:07am wednesdaysStart: 54-77-6389uqxxit 1 mg by subcutaneous injection two times weeklySemaglutide (Ozempic) 1 mg/dose (4 mg/3 mL) pen injector Active 1 MG SUBCUT Twice a Week June 21, 2022 11:00pm wednesdaysTc-99m tetrofosmin (Myoview) injection 30 millicurie (2 sources)Start: 05-26-2024 End: millicurie, intravenous, Once in imaging, Starting on Sat05/26/24 at 1232, For 1 dose, Administer 45 to 90 minutes prior to imaging unless otherwise indicated.Start: 05-25-2024 End: millicurie, intravenous, Once in imaging, Starting on Sat05/25/24 at 1155, For 1 dose, Administer 45 to 90 minutes prior to imaging unless otherwise indicated.tiotropium 0.018 mg inhalation powder (20 sources)AnticholinergicStart: 83-16-0162Julwzdq HandiHaler 18 MCG Inhalation Capsule USE DIRECTED. Quantity: 0 Refills: 0 Ordered: 19-Sep-2020 DO Start : 19-Sep-2020 Active End: 1961atub 1 capsule by inhalation once dailySpiriva HandiHaler [address] 1 capsule into inhaler and inhale 1 (one) time each day at the same time. 04/06/2024 DiscontinuedSpiriva HandiHaler 18 MCG 1 capsule by inhaling the contents of the capsule using the HandiHaler device Once a day ActiveUbidecarenone-[place] 3-Vit E (Co P-61-Tqgfxwn E-Fish Oil) 25-150-200 mg-mg-unit capsule (5 sources)Start: 01-02-2024 End: 53-50-4444ldsf 1 capsule by mouth once dailyUbidecarenone-[place] 3-Vit E (Co Y-50-Fbbbavf E-Fish Oil) 25-150-200 mg-mg-unit capsule Discontinued1 CAP PO Daily January 02, 2024 12:00am June 15, 2024 11:08amStart: 78-62-3000pvlv 1 capsule by mouth once dailyUbidecarenone-[place] 3-Vit E (Co I-96-Lmqjmpf E-Fish Oil) 25-150-200 mg-mg-unit capsule Active 1 CAPPO Daily January 02, 2024 12:00am Problems Active Problems Problem ClassificationProblemDateDocumented DateEpisodic/ChronicAcquired foot deformities (2 sources)Acquired valgus deformity of left ankle; Translations: [Valgus deformity, not elsewhere classified,left ankle]93-72-0444BirwceesQuntm and unspecified renal failure (15 sources)Injury of kidney; Translations: [Acute kidney failure, unspecified] 28-19-9061EkysdyqsChvwayo dysrhythmias (12 sources)Palpitations; Translations: [Palpitations]Onset: 28-36-7894Cojcqmjm Chronic obstructive pulmonary disease and bronchiectasis (20 sources)Chronic obstructive lung disease; Translations: [Chronic obstructive pulmonary disease, unspecified]Onset: 01-30-2022 Resolved: 54-95-4563JohsiubBazgcxme mellitus with complications (20 sources)Disorder due to type 2 diabetes mellitus; Translations: [Type 2 diabetes mellitus with unspecified complications]Onset: 01-30-2022 Resolved: 70-78-6733TyshgkaUewpjmtz mellitus without complication (12 sources)Diabetes mellitus; Translations: [Diabetes mellitus without mention of complication, type II or unspecified type, not stated as uncontrolled]Onset: 71-96-5706OfqzycsFpkovmufh of lipid metabolism (20 sources)Hyperlipidemia; Translations: [Other and unspecified hyperlipidemia] Onset: 01-30-2022 Resolved: 29-96-0893KrptusnPfdvcyufho disorders (18 sources)Acid reflux; Translations: [Gastro-esophageal reflux disease without esophagitis]ChronicEssential hypertension (20 sources)Benign essential hypertension; Translations: [Benign essential hypertension]Onset: 01-30-2022 Resolved: 85-50-6717ZqtknnuSznnw and electrolyte disorders (15 sources)Acute hyponatremia; Translations: [Hypo-osmolality and hyponatremia] 85-32-4842GnbbxlyoYmjpqo and vomiting (13 sources)Vomiting, unspecified; Translations: [Nausea and vomiting]Episodic Nonspecific chest pain (15 sources)Chest pain; Translations: [Chest pain, unspecified]Onset: 04-02-2024 EpisodicOsteoarthritis (20 sources)Osteoarthritis of left knee joint; Translations: [Unilateral primary osteoarthritis, left knee]Onset: 04-10-2022 Resolved: 24-13-6288KlmsvmbMugdg connective tissue disease (20 sources)History of right total knee replacement; Translations: [Presence of right artificial knee joint]ChronicOther connective tissue disease (4 sources)Presence of right artificial knee joint; Translations: [Knee joint replacement]Onset: 04-10-2022 Resolved: 96-82-5475KyyrpzbOimxg connective tissue disease (5 sources)History of total knee arthroplasty; Translations: [Presence of right artificial knee joint]49-66-9735XyueqcjOyhje connective tissue disease (2 sources)Pain in left foot; Translations: [Pain in left foot]12-23-2024 EpisodicOther disorders of stomach and duodenum (1 source)Gastroparesis syndrome; Translations: [Gastroparesis]06-15-2024 EpisodicOther disorders of stomach and duodenum (1 source)Gastroparesis; Translations: [Gastroparesis]65-51-6709VozrzyypYwmjo endocrine disorders (20 sources)Hypoglycemia; Translations: [Hypoglycemia, unspecified]ChronicOther endocrine disorders (4 sources)Hypoglycemia, unspecifiedChronicOther gastrointestinal disorders (1 source)Irritable bowel syndrome characterized by constipation; Translations: [Irritable bowel syndrome with constipation]72-15-4225VqrfgxyYhxhh gastrointestinal disorders (1 source)Irritable bowel syndrome; Translations: [Irritable bowel syndrome without diarrhea]45-12-7465JkuobtmNmeto gastrointestinal disorders (1 source)Irritable bowel syndrome with constipation; Translations: [Irritable bowel syndrome]94-97-2161TcjcspyXxlbi gastrointestinal disorders (20 sources)Constipation; Translations: [Constipation, unspecified]EpisodicOther gastrointestinal disorders (6 sources)Constipation, unspecified; Translations: [Constipation, unspecified] Onset: 05-03-2022 Resolved: 51-49-2512HplseavuSxiaa gastrointestinal disorders (20 sources)Dysphagia; Translations: [Dysphagia, unspecified]36-51-3127Ltwojool Other gastrointestinal disorders (2 sources)Dysphagia, unspecified; Translations: [Dysphagia, unspecified] EpisodicOther lower respiratory disease (9 sources)Dyspnea on exertion; Translations: [Shortness of breath]Onset: 646798-19-7265ZukxyglsUcano nervous system disorders (20 sources)Chronic pain; Translations: [Other chronic pain]90-95-9052Rdtrpfc Other nervous system disorders (14 sources)Other chronic pain; Translations: [Other chronic pain]ChronicOther nervous system disorders (2 sources)Right-sided piriformis syndrome; Translations: [Lesion of sciatic nerve, right lower limb]86-97-0941KknaijcUkghi nervous system disorders (2 sources)Difficulty walking; Translations: [Difficulty in walking, not elsewhere classified]98-20-9899CxptovoAtasu non-traumatic joint disorders (2 sources)Pain in left kneeEpisodicOther non-traumatic joint disorders (2 sources)Acute ankle pain; Translations: [Pain in left ankle and joints of left foot]61-35-0190OsnchcmkNcftt non-traumatic joint disorders (2 sources)Instability of joint of left ankle; Translations: [Other instability, left ankle]34-81-7652HazhcgggSiouc nutritional; endocrine; and metabolic disorders (20 sources)Body mass index 40+ - severely obese; Translations: [Morbid obesity] Onset: 525316-88-5827IvcuwxqFdnxr nutritional; endocrine; and metabolic disorders (20 sources)Metabolic syndrome X; Translations: [Metabolic syndrome]ChronicOther nutritional; endocrine; and metabolic disorders (7 sources)Metabolic syndromeOnset: 01-30-2022 Resolved: 46-05-3640ZwymaysXwvih nutritional; endocrine; and metabolic disorders (8 sources)Body mass index (BMI) 50.0-59.9, adultOnset: 03-22-2022 Resolved: 29-37-5027PqlfiyaDthpa nutritional; endocrine; and metabolic disorders (20 sources)Obesity; Translations: [Obesity, unspecified]ChronicOther nutritional; endocrine; and metabolic disorders (2 sources)Obesity, unspecifiedChronicOther nutritional; endocrine; and metabolic disorders (2 sources)Body mass index (BMI) 45.0-49.9, adult; Translations: [Body mass index (BMI) 45.0-49.9, adult (Multi)]Onset: 74-52-1570CcutdkaKfxhx screening for suspected conditions (not mental disorders or infectious disease) (2 sources)Cardiovascular stress test abnormal; Translations: [Other nonspecific abnormal results of function study of cardiovascular system]EpisodicOther upper respiratory infections (1 source)Acute upper respiratory infection, unspecified; Translations: [ACUTE UP RESPIRATORY INFECTION UNS]Onset: 63-36-8704RljfbitgDtdgfnbhx (except that caused by tuberculosis or sexually transmitted disease) (15 sources)Pneumonia; Translations: [Pneumonia, unspecified organism]06-22-2022 EpisodicResidual codes; unclassified (10 sources)Sleep apnea; Translations: [Unspecified sleep apnea]Onset: 413439-23-7674WfbnyvkCrgwqolb codes; unclassified (20 sources)Obstructive sleep apnea syndrome; Translations: [Obstructive sleep apnea (adult) (pediatric)]ChronicResidual codes; unclassified (7 sources)Obstructive sleep apnea (adult) (pediatric)Onset: 01-30-2022 Resolved: 77-96-1822VtnmdjcBymqdpai codes; unclassified (2 sources)Sleep apnea, unspecified; Translations: [Sleep apnea, unspecified] Onset: 52-54-0633RrpcwyzTxosnjyw codes; unclassified (4 sources)Localized edema; Translations: [LOCALIZED EDEMA]Onset: 06-28-2022 EpisodicResidual codes; unclassified (2 sources)Bilateral lower limb edema; Translations: [Localized edema]12-23-2024 EpisodicSepticemia (except in labor) (15 sources)Sepsis; Translations: [Sepsis, unspecified organism]06-22-2022 EpisodicSpondylosis; intervertebral disc disorders; other back problems (20 sources)Inflammation of sacroiliac joint; Translations: [Sacroiliitis, not elsewhere classified]Onset: 20-16-7864WofsyabHmyactskb-related disorders (12 sources)Smoker; Translations: [Tobacco use disorder]Onset: 20-82-4328Ynfvnsu Comment on above:1.5 TO PPD;Thyroid disorders (20 sources)Hypothyroidism; Translations: [Hypothyroidism, unspecified]Onset: 01-30-2022 Resolved: 55-70-8985DbszjrgIxksjsdwgehi (3 sources)CONTACT W/AND (SUSP) EXPOS COVID-19; Translations: [CONTACT W/AND (SUSP) EXPOS COVID-19]Onset: 08-15-2022 Past or Other Problems Problem ClassificationProblemDateDocumented DateEpisodic/ChronicOther non- traumatic joint disorders (4 sources)Pain in right hip; Translations: [PAIN IN RIGHT HIP]Onset: 02-06-2022 EpisodicOther non-traumatic joint disorders (2 sources)Pain in right hip joint; Translations: [Pain in right hip]04-03-2024 EpisodicOther nutritional; endocrine; and metabolic disorders (1 source)Abnormal weight gainOnset: 01-30-2022 Resolved: 39-08-6227RxrjbfdeYpvfue media and related conditions (1 source)Otitis media, unspecified, bilateralOnset: 03-20-2022 Resolved: 74-53-3108ByhvsmbeVxsgsuef codes; unclassified (20 sources)Sedentary lifestyle; Translations: [Other specified personal risk factors, not elsewhere classified]Onset: 420475-22-6624Byllclar Spondylosis; intervertebral disc disorders; other back problems (20 sources)Right cervical root neuropathy; Translations: [Radiculopathy, cervical region]Onset: 637080-79-3308TpdbepenSnmtuhlydetc (1 source)CONTACT W/AND (SUSP) EXPOS COVID-19; Translations: [CONTACT W/AND (SUSP) EXPOS COVID-19]Onset: 27-37-9471Esnyqqyfalkl (1 source)Low back pain, unspecified back pain laterality, unspecified chronicity, unspecified whether sciatica present M54.50 Results Test NameValueInterpretationReference RangeFacilityProvider Letteron 04-22-2025 Provider LetterProvider Letter April 22, 2025 AISHWARYA HARTMAN [address] [place] [id number] : 1960 Dear Aishwarya Hartman , We have been trying to reach you with no success. It is important that you return our call regarding your referral upon receiving this letter. Also, at the time of your call, please provide us with your current information. Thank you for your prompt attention to this matter. Sincerely, [facility] [phone] Shelby HospitalXR lumbar spine 6V w bendingon 58-38-3214FV lumbar spine 6V w [facility] [place] [address] [place] [address] XRay Report Signed Patient: Aishwarya Hartman MR#: [id number] 2 : 1960 Acct:[id number] Age/Sex: 65 / F ADM Date: 02/04/25 Loc: XD Room: Type: [facility] Attending Dr: Linda Archer APRN Copies to: Linda Archer APRN Ordering Provider: Linda Archer APRN Date of Service: 02/04/25 XR/XR [...] Jr., D.O. 02/04/2025 1:22 PM Dictation Location: [place] [address] Transcribed By: [facility] 02/04/25 1322 Dictated By: Lorenzo Kendrick Jr, 02/04/25 1321 Signed By: 02/04/25 1322[facility] GroupXR Ankle - left 3 Viewson 53-33-6759Bopobpx Result: AP Lateral and Oblique left ankle: No acute fracture, no dislocation Near bone on bone articulation of talus and tibia with subchondral sclerosis and subchondral cystic changes adjacent to articular surface. Degenerative spurring to medial and lateral aspects of talus. Ankle mortise is not symmetric with advanced arthritic changes. Impression: moderate to severe arthritis left ankle.[facility] HealthcareRadiology Study observation (narrative)[facility] HealthcareXR Foot - left 3 Viewson 20-63-8105Ocgxlhj Result: AP, Lateral and oblique left foot: No acute fracture or dislocation Mild soft tissue prominence diffuse to foot Small calcaneal enthesophyte, notable degenerative changes at ankle joint. Impression: Moderate to severe ankle arthritis and small heel spur with no acute bony process.[facility] HealthcareRadiology Study observation (narrative)[facility] Heart Perfusion W stress and W radionuclide [place] 11-18-6873Itlylh Lexiscan Myoview cardiac perfusion stress test. No evidence of ischemia or myocardial infarction by perfusion imaging. Normal left ventricular systolic function, ejection fraction 73%. No change when compared to previous study. Signed by: Noman Henriquez 05/26/2024 5:32 PM Dictation workstation: [id number] By: Noman Henriquez and Giannuzzi Michael STUDY: MYOCARDIAL PERFUSION STRESS TEST WITH LEXISCAN Performing facility: [facility], [address] [place] [address], [address] Provider: Noman Henriquez MD PCP: Dr. Charley Saravia [facility] Supervising provider: Noman Henriquez MD INDICATION: Chest Pain; HISTORY: Gender: F; Age: 64 y/o ; Height: HT 147.3 cm cm; Weight: WT 103.874 kg kg. High Cholesterol; Diabetes; HTN; Palpitations; Chest Pain; SOB; COPD; Currently smoking. COMPARISON: Previous nuclear testing completed at [facility]. ACCESSION NUMBER(S): [id number] ORDERING CLINICIAN: NOMAN HENRIQUEZ TECHNIQUE: TWO DAY [...] There were evidence of breast attenuation artifact. MMODALNoman Henriquez MD - 05/26/2024 Interpreted By: Noman Henriquez and Giannuzzi Michael STUDY: MYOCARDIAL PERFUSION STRESS TEST WITH LEXISCAN Performing facility: [facility], [address] [place] [address], [address] Provider: Noman Henriquez MD PCP: Dr. Charley Saravia [facility] Supervising provider: Noman Henriquez MD INDICATION: Chest Pain; HISTORY: Gender: F; Age: 64 y/o ; Height: HT 147.3 cm cm; Weight: WT 103.874 kg kg. High Cholesterol; Diabetes; HTN; Palpitations; Chest Pain; SOB; COPD; Currently smoking. COMPARISON: Previous nuclear testing completed at [facility]. ACCESSION NUMBER(S): [id number] ORDERING CLINICIAN: NOMAN HENRIQUEZ TECHNIQUE: TWO DAY [...] Noman Henriquez 05/26/2024 5:32 PM Dictation workstation: [id number] [facility] Work Phone: nm Heart Perfusion W stress and W radionuclide IV Ordered By: Noman Henriquez on 39-36-2553ItuzfotxfuPaulding County Hospital Work Phone: nm Heart Perfusion W stress and W radionuclide [place] 75-77-1468Fepszmgpz Study observation (narrative)[facility] Work Phone: NUCLEAR STRESS TESTon 27-89-3565GZYKEFL STRESS TEST Interpreted By: Noman Henriquez and Giannuzzi Michael STUDY: MYOCARDIAL PERFUSION STRESS TEST WITH LEXISCAN Performing facility: [facility], [address] [place] [address], [address] Provider: Noman Henriquez MD PCP: Dr. Charley Saravia [facility] Supervising provider: Noman Henriquez MD INDICATION: Chest Pain; HISTORY: Gender: F; Age: 64 y/o ; Height: HT 147.3 cm cm; Weight: WT 103.874 kg kg. High Cholesterol; Diabetes; HTN; Palpitations; Chest Pain; SOB; COPD; Currently smoking. COMPARISON: Previous nuclear testing completed at [facility]. ACCESSION NUMBER(S): [id number] ORDERING CLINICIAN: NOMAN HENRIQUEZ TECHNIQUE: TWO DAY [...] Noman Henriquez 05/26/2024 5:32 PM Dictation workstation: [id number] Campus Medical Center Glucose Glucometer (BldC) [Mass/Vol]Ordered By: Jet Bansal on 47-26-8456Yyumpfa [Mass/Vol]113 mg/dLUk HealthcareComment on above:Random Glucose Reference Range is dependent on time and content of last meal. Glucose of more than 200 mg/dL in a nonstressed, ambulatory subject supports the diagnosis of Diabetes Mellitus.No Panel InformationOrdered By: Jet Bansal on 54-38-4899Nrvfcuj Glucose CommentGlu2: cleaned meterUk HealthcareAlbumin [Mass/volume] in Serum or PlasmaOrdered By: Sisi Saravia on 37-59-3653Sirlbxa [Mass/Vol]4.0 g/dL3.2-5.5FAult[facility] Alkaline phosphatase [Enzymatic activity/volume] in Serum or PlasmaOrdered By: Sisi Saravia on 27-36-9524NPW [Catalytic activity/Vol]173 U/D06-92PyhcfmeyxUk HealthcareAspartate aminotransferase [Enzymatic activity/volume] in Serum or PlasmaOrdered By: Sisi Saravia on 98-36-8482WAD [Catalytic activity/Vol]24 U/B23-18FwfdjsjvyUk HealthcareBasophils Auto (Bld) [#/Vol]Ordered By: Sisi Saravia on 83-58-6937Jrfsuaexr (Bld) [#/Vol]0.1 10*3/uL 0.0-0.2FAultman HospitalBasophils/100 WBC Auto (Bld)Ordered By: Sisi Saravia on 84-66-1391Bcocafxsx/100 WBC (Bld)0.9 %.Uk HealthcareBilirubin.total [Mass/volume] in Serum or PlasmaOrdered By: Sisi Saravia on 53-05-0589Acncpzwun [Mass/Vol]0.4 mg/dL0.3-1.2FAultman HospitalCalcium [Mass/volume] in Serum or PlasmaOrdered By: Sisi Saravia on 38-19-1540Bchayxq [Mass/Vol]9.4 mg/dL8.2-10.2FAultman HospitalCarbon dioxide, total [Moles/volume] in Serum or PlasmaOrdered By: Sisi Saravia on 77-81-9656LK9 [Moles/Vol]27.4 mmol/L22.0-30.0Uk HealthcareChloride [Moles/volume] in Serum or PlasmaOrdered By: Sisi Saravia on 68-34-5077Khvmnqlv [Moles/Vol]103 mmol/V97-343TlmxybasjUk HealthcareCholesterol [Mass/volume] in Serum or PlasmaOrdered By: Sisi Saravia on 37-06-4102Jovxrsjmqif [Mass/Vol]181 mg/iV483-747HedlhdbpqUk HealthcareComment on above:Chol less than 200 mg/dl low riskChol 201-239 mg/dl borderline riskChol 240 mg/dl and greater high riskCholesterol in LDL Calc [Mass/Vol]Ordered By: Sisi Saravia on 57-40-1551Zkmyhpnqwzd in LDL [Mass/Vol] 86 mg/dL0-100Uk HealthcareComment on above:LDL ATP III CLASSIFICATIONLDL less than 100 mg/dL OptimalLDL 100-129 mg/dL Near or above cwksfboMYH246-247 mg/dL Borderline highLDL 160-189 mg/dL HighLDL greater than 189 mg/dL Very highCholesterol in VLDL Calc [Mass/Vol]Ordered By: Sisi Saravia on 04-35-9839Awbdlrokakg in VLDL [Mass/Vol]45 mg/dLUk HealthcareCreatinine and Glomerular filtration rate.predicted panel (S/P/Bld)Ordered By: Sisi Saravia on 32-33-4881Qlsnztnntl [Mass/Vol]0.88 mg/dL0.44-1.03 Uk HealthcareEosinophils Auto (Bld) [#/Vol]Ordered By: Sisi Saravia on 86-65-9068Vukgabktcva (Bld) [#/Vol]0.1 10*3/uL0.0-0.45Uk HealthcareEosinophils/100 WBC Auto (Bld)Ordered By: Sisi Saravia on 50-44-9292Weplrgpbqrr/100 WBC (Bld)0.8 %.[facility] Erythrocyte distribution width Auto (RBC) [Ratio]Ordered By: Sisi Saravia on 04-26-9719Jyilqlnbloi distribution width (RBC) [Ratio]15.1 %11.9-15.3FAultman HospitalEstimated glomerular filtration rate (GFR) non- AmericanOrdered By: Sisi Saravia on 69-63-6321EYP/1.73 sq M.predicted among non-blacks MDRD (S/P/Bld) [Vol rate/Area]> 60 mL/MinUk HealthcareGlobulin Calc (S) [Mass/Vol]Ordered By: Sisi Saravia on 10-11-2022 Globulin (S) [Mass/Vol]2.4 g/dLUk HealthcareGlucose [Mass/volume] in Serum or PlasmaOrdered By: Sisi Saravia on 25-19-7946Kizwhff [Mass/Vol]109 mg/sP99-968SowuoeogtUk HealthcareComment on above:ADA recommended reference rangeRandom Glucose Reference Range is dependent on time and content of last meal. Glucose of more than 200 mg/dL in a nonstressed, ambulatory subject supports the diagnosisof Diabetes Mellitus.Glucose mean value [Mass/volume] in Blood Estimated from glycated hemoglobinOrdered By: Sisi Saravia on 23-87-4210Zwymoyp glucose Estimated from glycated hemoglobin (Bld) [Mass/Vol]126 mg/dLUk HealthcareHematocrit Auto (Bld) [Volume fraction]Ordered By: Sisi Saravia on 80-23-4538Qkpkddensp (Bld) [Volume fraction]42.4 %34.0-46.4FAultman HospitalHemoglobin A1c percentageOrdered By: Sisi Saravia on 02-96-4884OuR6c (Bld) [Mass fraction]6.0 %4.3-5.6FAultman HospitalComment on above:Increased risk for diabetes: 5.7 - 6.4diabetes: >6.4glycemic control for adults with diabetes: &l t;7.0Hemoglobin [Mass/volume] in BloodOrdered By: Sisi Saravia on 10-11-2022 Hemoglobin (Bld) [Mass/Vol]14.0 g/dL11.8-15.4FAultman Hospital Iron [Mass/volume] in Serum or PlasmaOrdered By: Sisi Saravia on 74-35-5934Ejxo [Mass/Vol]93 ug/qO82-132HlzhqmoriUk HealthcareLeukocytes [#/volume] corrected for nucleated erythrocytes in Blood by Automated counOrdered By: Sisi Saravia on 33-84-0898KAD corrected for nucl RBC Auto (Bld) [#/Vol]6.4 10*3/uL3.8-11.6FAultman HospitalLymphocytes Auto (Bld) [#/Vol] Ordered By: Sisi Saravia on 47-39-7976Bzwkpaewmny (Bld) [#/Vol]1.8 10*3/uL 1.00-4.8Uk HealthcareLymphocytes/100 WBC Auto (Bld)Ordered By: Sisi Saravia on 50-08-4051Uonfniygops/100 WBC (Bld)28.2 %.Uk HealthcareMCH Auto (RBC) [Entitic mass]Ordered By: Sisi Saravia on 49-61-6430PXQ (RBC) [Entitic mass]29.9 pg24.7-34.3FAultman HospitalMCHC Auto (RBC) [Mass/Vol]Ordered By: Sisi Saravia on 60-51-7410NKAP (RBC) [Mass/Vol]33.1 g/dL32.0-35.0Uk HealthcareMCV Auto (RBC) [Entitic vol]Ordered By: Sisi Saravia on 34-41-5827DNH (RBC) [Entitic vol]90.3 uV74-601CogdjgfqcUk HealthcareMonocytes Auto (Bld) [#/Vol] Ordered By: Sisi Saravia on 15-59-4102Oycmaojxv (Bld) [#/Vol]0.4 10*3/uL0.0-0.8 Uk HealthcareMonocytes/100 WBC Auto (Bld)Ordered By: Sisi Saravia on 12-41-6457Scfzqhlca/100 WBC (Bld)6.7 %.Uk HealthcareNeutrophils Auto (Bld) [#/Vol]Ordered By: Sisi Saravia on 10-11-2022 Neutrophils (Bld) [#/Vol]4.1 10*3/uL1.8-7.7FAultman Hospital Neutrophils/100 WBC Auto (Bld)Ordered By: Sisi Saravia on 10-11-2022 Neutrophils/100 WBC (Bld)63.4 %.Uk HealthcareNo Panel InformationOrdered By: Sisi Saravia on 40-82-7528Gzazeurya GFR ()> 60 mL/MinUk HealthcareComment on above:GFR estimated reference range: According to KDOQI guidelines, <60 ml/min/1.73m2 is sufficient todiagnose a patient with chronic kidney disease.Pharmacy Creatinine Clearance (ChemN/[facility] GlenbeighNucleated erythrocytes [Presence] in Blood by Automated countOrdered By: Sisi Saravia on 10-11-2022 Nucleated RBC Auto Ql (Bld)0.1 /100{WBC}0-0.5FAult[facility] Hospital Platelet mean volume Auto (Bld) [Entitic vol]Ordered By: Sisi Saravia on 85-93-5912Ulqpcbmh mean volume (Bld) [Entitic vol]9.0 fL6.3-10.7FAultman HospitalPlatelets Auto (Bld) [#/Vol]Ordered By: Sisi Saravia on 27-00-7877Zpnvuqljy (Bld) [#/Vol]225 10*3/uV356-252GcjpfiqcyUk HealthcarePotassium [Moles/volume] in Serum or PlasmaOrdered By: Sisi Saravia on 61-81-4908Trcwzyzbo [Moles/Vol]4.2 mmol/L3.5-5.1FAultman HospitalProtein [Mass/volume] in Serum or PlasmaOrdered By: Sisi Saravia on 27-41-7784Tzjfdhr [Mass/Vol]6.4 g/dL6.1-7.9Uk HealthcareRBC Auto (Bld) [#/Vol]Ordered By: Sisi Saravia on 01-72-2773GQB (Bld) [#/Vol]4.70 10*6/uL3.60-5.00Morrow County Hospitalerum or plasma alanine aminotransferase measurement without P-5'-P (enzymatic activiOrdered By: Sisi Saravia on 63-84-5901NDH No additional P-5'-P [Catalytic activity/Vol]38 U/L10-60 [facility] Hospitalerum or plasma albumin/globulin mass ratio Ordered By: Sisi Saravia on 75-33-8218Aaohenl/Globulin [Mass ratio]1.7 {ratio} [facility] Hospitalerum or plasma anion gap determinationOrdered By: Sisi Saravia on 37-68-0832Wilvj gap [Moles/Vol]9.8 mmol/L6.0-15.0M[facility] County Hospitalerum or plasma high density lipoprotein (HDL) cholesterol measurementOrdered By: Sisi Saravia on 94-66-0098Xwgjpwlnauz in HDL [Mass/Vol]50 mg/gA94-58YvovdiiyjUk HealthcareComment on above:HDL CHOL ATP-III CLASSIFICATION Cardiovascular RiskHDL > or equal to 60 mg/dL LOWHDL < 40 mg/dL HIGHSerum or plasma total cholesterol/high density lipoprotein (HDL) cholesterol mass ratOrdered By: Sisi Saravia on 10-11-2022 Cholesterol.total/Cholesterol in HDL [Mass ratio]3.6 {ratio}<5.0M[facility] County Hospitalodium [Moles/volume] in Serum or PlasmaOrdered By: Sisi Saravia on 46-31-9327Ikavkp [Moles/Vol]136 mmol/I700-943GkmgceisoUk HealthcareTriglyceride [Mass/volume] in Serum or PlasmaOrdered By: Sisi Saravia on 83-58-1621Uxkjifsggsme [Mass/Vol]226 mg/xA04-723ZgriunpsgUk HealthcareComment on above:TRIG ATP III CLASSIFICATIONTRIG less than 150 mg/dL NormalTRIG 150-199 mg/dL Borderline highTRIG 200-500 mg/dL High TRIG greater than 500 mg/dL Very highStandard traceable to the Center for Disease Co nrtrol and Prevention (CDC) test method.Urea nitrogen [Mass/volume] in Serum or PlasmaOrdered By: Sisi Saravia on 41-51-7084Lmjy nitrogen [Mass/Vol]8 mg/dL9 Uk HealthcareWBC Auto (Bld) [#/Vol]Ordered By: Sisi Rani on 36-11-1881UNB (Bld) [#/Vol]6.4 10*3/uL3.8-11.6FAultman HospitalCovid-19 PCR (CVDTBH)on 99-95-2205YSSP-CoV-2 (COVID-19) RNA COURTNEY+probe Ql (Unsp spec)Not detectedNormalNOT DETECTEDThe [facility] Health SystemComment on above: Result Comment: This test is not yet approved or cleared by the [place] FDA. When there are no FDA-approved or cleared tests available, and other criteria are met, FDA can make tests available under an emergency access mechanism called an Emergency Use Authorization (EUA). The EUA for this test is supported by the [place]el[place] of Health and Human Service's (HHS's) declaration [...] of clinical signs and symptoms consistent with SARS-CoV-2.Performed By: #### CVDTBH #### [facility] [address] [place] [address] Dr. Sahra Tan AND Margarita AGon 14-61-5566KTZFMKFWT A AGNegativeNormal NEGATIVE SEE COMMENTThe [facility] Health SystemComment on above:Performed By: #### INFLUAB #### [facility] [address] [place] [address] Dr. Sahra Avila AGNegativeNormalNEGATIVE SEE COMMENTThe [facility] Health SystemComment on above:Performed By: #### INFLUAB #### [facility] [address] [place] [address] Dr. Sahra DukeINTERNAL CONTROLSWithin Normal LimitsNormalWithin Normal Limits The [facility] SystemComment on above:Performed By: #### INFLUAB #### [facility] [address] [place] [address] Dr. Sahra Craigice Visit (Cardiology)on 23-50-8407Hlisgt-up visit Diagnoses/Problems Assessed Chest pain (786.50) (R07.9) [...] we can help. You may also call 8-664-GPRFFullCircle RegistryNOW for free resources and assistance.; Status:Complete; Done: [...] TO PPD Daily caf (more content not included)...NormalUH TouchworksTobacco Screening.on 08-75-0278Ywtk risk assessmenta) No falls within the last yearMulti[facility] [employer] 250 DO Work Phone: Tobacco use status CPHSa) YesMultiCare [facility] Medical Center [employer] 250 DO Work Phone: Tobacco Screening.YesMultiCare [facility] Medical Center [employer] 250 DO Work Phone: us DAFNE DOP LEG BILon 51-26-3983YX DAFNE DOP LEG BELÉN EXAMINATION: US DAFNE [...] Electronically authenticated by: TIMOTHY RODGERS Date: 2022-06-28 14:28[facility] form neutrophils/100 WBC Manual cnt (Bld)Ordered By: Piper Tate on 59-40-0208Zdza form neutrophils/100 WBC (Bld)10 %0-5FAultman HospitalBasophils Auto (Bld) [#/Vol]Ordered By: Piper Tate on 70-01-9035Lbnfsmwwf (Bld) [#/Vol]N/[facility] Basophils/100 WBC Auto (Bld)Ordered By: Piper Tate on 06-24-2022 Basophils/100 WBC (Bld)N/[facility] GlenbeighCreatinine and Glomerular filtration rate.predicted panel (S/P/Bld)Ordered By: Piper Tate on 36-12-8544Bzhrhypldc [Mass/Vol]0.75 mg/dL0.44-1.03Uk HealthcareEosinophils Auto (Bld) [#/Vol]Ordered By: Piper Tate on 06-24-2022 Eosinophils (Bld) [#/Vol]N/[facility] GlenbeighEosinophils/100 WBC Auto (Bld)Ordered By: Piper Tate on 93-16-7512Gltvlxofmjl/100 WBC (Bld)N/A Uk HealthcareErythrocyte distribution width Auto (RBC) [Ratio]Ordered By: Piper Tate on 89-48-2650Qehhinitwnt distribution width (RBC) [Ratio]14.5 %11.9-15.3FAultman HospitalEstimated glomerular filtration rate (GFR) non- AmericanOrdered By: Piper Tate on 62-67-1704YJR/1.73 sq M.predicted among non-blacks MDRD (S/P/Bld) [Vol rate/Area]> 60 mL/MinUk HealthcareGiant platelets/100 leukocytes [Ratio] in Blood by Manual countOrdered By: Piper Tate on 73-10-1387Fqrbr platelets/100 WBC Manual cnt (Bld) [Ratio]1 /100{WBC}Uk HealthcareGlucose Glucometer (BldC) [Mass/Vol]Ordered By: Piper Tate on 52-22-3528Awznvqz [Mass/Vol]116 mg/dLUk HealthcareComment on above:Random Glucose Reference Range is dependent on time and content of last meal. Glucose of more than 200 mg/dL in a nonstressed, ambulatory subject supports the diagnosis of Diabetes Mellitus.Hematocrit Auto (Bld) [Volume fraction]Ordered By: Piper Tate on 10-75-6027Qdcxbeeuzf (Bld) [Volume fraction]35.7 %34.0-46.4FAultman HospitalHemoglobin [Mass/volume] in BloodOrdered By: Piper Tate on 92-61-6673Bgsrdmzdso (Bld) [Mass/Vol]11.7 g/dL11.8-15.4FAultman HospitalLaboratory - Hematology and Cell countsOrdered By: Piper Tate on 15-11-9549Viogculhg RBC/100 WBC (Bld) [Ratio]0.0 %0-0.5FAultman HospitalLeukocytes [#/volume] in Blood by Automated countOrdered By: Piper Tate on 06-24-2022 WBC (Bld) [#/Vol]15.9 10*3/uL4.5-11.0[facility] Lymphocytes Auto (Bld) [#/Vol]Ordered By: Piper Tate on 06-24-2022 Lymphocytes (Bld) [#/Vol]N/AFAultman HospitalLymphocytes/100 WBC Auto (Bld)Ordered By: Piper Tate on 48-51-5303Rcsfeqemsmz/100 WBC (Bld)N/A Uk HealthcareLymphocytes/100 WBC Manual cnt (Bld)Ordered By: Pipre Tate on 53-11-8469Gcolzfoqhuh/100 WBC (Bld)8 %18-42[facility] CenterH Auto (RBC) [Entitic mass]Ordered By: Piper Tate on 30-03-1686DCY (RBC) [Entitic mass]29.7 pg24.7-34.3FAultman HospitalMCHC Auto (RBC) [Mass/Vol]Ordered By: Piper Tate on 09-11-5465DKIH (RBC) [Mass/Vol]32.7 g/dL32.0-35.0Uk HealthcareMCV Auto (RBC) [Entitic vol]Ordered By: Piper Tate on 34-10-3879OXK (RBC) [Entitic vol]91.0 sV18-176AbjrlsevjUk HealthcareMonocytes Auto (Bld) [#/Vol] Ordered By: Piepr Tate on 32-62-5260Oplvigpjl (Bld) [#/Vol]N/[facility] GlenbeighMonocytes/100 WBC Auto (Bld)Ordered By: Piper Tate on 64-97-2449Cvjuqmpbe/100 WBC (Bld)N/[facility] Myelocytes/100 WBC Manual cnt (Bld)Ordered By: Piper Tate on 06-24-2022 Myelocytes/100 WBC (Bld)3 %0-0Uk HealthcareNeutrophils Auto (Bld) [#/Vol]Ordered By: Piper Tate on 26-84-5966Unbrsupuwqm (Bld) [#/Vol] N/[facility] GlenbeighNeutrophils/100 WBC Auto (Bld)Ordered By: Piper Tate on 81-85-6635Bhufdaixlfc/100 WBC (Bld)N/[facility] GlenbeighNo Panel InformationOrdered By: Piper Tate on 06-24-2022 Estimated GFR ()> 60 mL/MinUk Healthcare Comment on above:GFR estimated reference range: According to KDOQI guidelines, <60 ml/min/1.73m2 is sufficient todiagnose a patient with chronic kidney disease.Pharmacy Creatinine Clearance (Chem92.05Uk HealthcarePlatelet adequacy [Presence] in Blood by Light microscopyOrdered By: Piper Tate on 92-84-4914Ddxagvhjp LM Ql (Bld)NormalNormalUk HealthcarePlatelet mean volume Auto (Bld) [Entitic vol]Ordered By: Piper Tate on 95-43-9047Ihzpafcu mean volume (Bld) [Entitic vol]9.7 fL6.3-10.7 Uk HealthcarePlatelet morphology finding [Identifier] in BloodOrdered By: Piper Tate on 02-14-3575Vqazjnjv morphology finding Nom (Bld)N/AFAultman HospitalPlatelets Auto (Bld) [#/Vol]Ordered By: Piper Tate on 26-06-6583Vmkznljbl (Bld) [#/Vol]219 10*3/pE884-780IksjedceeUk HealthcarePlatelets Large [Presence] in Blood by Light microscopy Ordered By: Piper Tate on 24-19-0127Zwxwstssn Large LM Ql (Bld)Slight Uk HealthcarePromyelocytes/100 WBC Manual cnt (Bld)Ordered By: Piper Tate on 37-95-4525Jzoezherizrfn/100 WBC (Bld)1 %0-0Uk HealthcareRB Auto (Bld) [#/Vol]Ordered By: Piper Tate on 37-65-6337FKA (Bld) [#/Vol]3.92 10*6/uL3.60-5.00Uk HealthcareRB morphologyOrdered By: Piper Tate on 01-04-8862EXX morphology finding Nom (Bld)NormalMorrow County Hospitalegmented neutrophils/100 WBC Manual cnt (Bld)Ordered By: Piper Tate on 06-24-2022 Segmented neutrophils/100 WBC (Bld)78 %50-70[facility] Serum or plasma anion gap determinationOrdered By: Piper Tate on 06-24-2022 Anion gap [Moles/Vol]10.8 mmol/L6.0-15.0M[facility] County Hospitalerum or plasma calcium measurement (mass/volume)Ordered By: Piper Tate on 78-05-7308Nzvkqqp [Mass/Vol]8.9 mg/dL8.2-10.2FA[facility] Serum or plasma chloride measurement (moles/volume)Ordered By: Piper Tate on 06-93-5140Zotzlnpn [Moles/Vol]107 mmol/G08-993GzzndasdzMorrow County Hospitalerum or plasma glucose measurement (mass/volume)Ordered By: Piper Tate on 32-81-3906Nnvsohk [Mass/Vol]129 mg/sQ46-369YximzqvocUk HealthcareComment on above:ADA recommended reference rangeRandom Glucose Reference Range is dependent on time and content of last meal. Glucose of more than 200 mg/dL in a nonstressed, ambulatory subject supports the diagnosisof Diabetes Mellitus.Serum or plasma potassium measurement (moles/volume)Ordered By: Piper Tate on 83-67-8062Ciytfleeb [Moles/Vol]4.5 mmol/L3.5-5.1FKettering Health Behavioral Medical Centererum or plasma sodium measurement (moles/volume)Ordered By: Piper Tate on 46-13-1572Gavkza [Moles/Vol]135 mmol/L252-678PymywbnanMorrow County Hospitalerum or plasma total carbon dioxide measurement (moles/volume)Ordered By: Piper Tate on 89-05-7721ZN1 [Moles/Vol]21.7 mmol/L22.0-30.0M[facility] County Hospitalerum or plasma urea nitrogen measurement (mass/volume)Ordered By: Piper Tate on 23-68-1427Okkq nitrogen [Mass/Vol]16 mg/dL9-23Uk HealthcareABO and Rh group post transfusion reaction Nom (Bld)Ordered By: Piper Tate on 06-23-2022 Microscopic observation Gram stain Nom (Unsp spec)Uk HealthcareBody fluid albumin measurement (mass/volume)Ordered By: Milan Quintanilla on 43-08-4509Kctcanr (Body fld) [Mass/Vol]3.3 g/dL3.2-5.5FAultman HospitalCOVID-19 Positive/NegativeOrdered By: Milan Quintanilla on 06-22-2022 SARS-CoV-2 (COVID-19) N gene COURTNEY+probe Ql (Resp)NegativeNegativeUk HealthcareComment on above:Testing for SARS-CoV-2 by RT-PCRThis test was developed and its performance characteristics determined by [employer] ([employer]) and validated at the [facility]. This test has not been FDA cleared [...] unless the authorization is terminated or revoked sooner.COVID-19 SOFIAOrdered By: Milan Quintanilla on 06-22-2022 SARS-CoV+SARS-CoV-2 (COVID-19) Ag IA.rapid Ql (Resp)NegativeNegativeUk HealthcareComment on above:This is a duplicate Janet SARS Antigen (MERRY) result to be used for statistical tracking purpose only.Globulin Calc (S) [Mass/Vol]Ordered By: Milan Quintanilla on 59-73-8926Pgxmhcle (S) [Mass/Vol]3.9 g/dL Uk HealthcareLaboratory - Chemistry and Chemistry - challengeOrdered By: Milan Quintanilla on 25-74-9369Ykfqjjw [Moles/Vol]1.9 mmol/L 0.5-2.2FAultman HospitalNatriuretic peptide B (Bld) [Mass/Vol] 104.0 pg/mL5-100[facility] CenterLaboratory - Chemistry and Chemistry - challengeOrdered By: Piper Tate on 58-87-4166Zxkvbnqyy [Mass/Vol]1.8 mg/dL1.6-2.6FAultman HospitalProtein [Mass/volume] in Serum or PlasmaOrdered By: Milan Quintanilla on 95-40-1531Ficoiso [Mass/Vol]7.2 g/dL6.1-7.9M[facility] County Hospitalerum or plasma alanine aminotransferase measurement without P-5'-P (enzymatic activiOrdered By: Milan Quintanilla on 35-37-1677TWB No additional P-5'-P [Catalytic activity/Vol]33 U/L10-60 [facility] Hospitalerum or plasma albumin/globulin mass ratio Ordered By: Milan Quintanilla on 48-33-9812Bbisdex/Globulin [Mass ratio]0.8 {ratio} [facility] Hospitalerum or plasma alkaline phosphatase measurement (enzymatic activity/volume)Ordered By: Milan Quintanilla on 28-77-5307HHG [Catalytic activity/Vol]148 U/Q56-92CctrdwudpMorrow County Hospitalerum or plasma aspartate aminotransferase measurement (enzymatic activity/volume)Ordered By: Milan Quintanilla on 22-24-4455OGH [Catalytic activity/Vol]17 U/V06-37KvzibgyknMorrow County Hospitalerum or plasma total bilirubin measurement (mass/volume) Ordered By: Milan Quintanilla on 14-24-7571Aioshvpga [Mass/Vol]1.3 mg/dL0.3-1.2 Uk HealthcareComment on above:Samples from patients who have taken Naproxen have shown spurious elevation in Total Bilirubin levels. A metabolite of Naproxen, O-desmethylnaproxen, has been shown to interfere with the Lorene-Berto method for measuring Total Bilirubin.Troponin I.cardiac [Mass/volume] in Serum or Plasma by High sensitivity methodOrdered By: Milan Quintanilla on 37-29-1186Rfkpfqww I.cardiac High sensitivity method [Mass/Vol]13 pg/mL 0-15Uk HealthcareAlbumin [Mass/volume] in Serum or Plasma Ordered By: Erika Garibay on 14-97-5098Kzzraqo [Mass/Vol]4.3 g/dL3.2-5.5 Uk HealthcareBasophils Auto (Bld) [#/Vol]Ordered By: Erika Garibay on 91-41-2837Gwrdysujq (Bld) [#/Vol]0.1 10*3/uL0.0-0.2FAultman HospitalBasophils/100 WBC Auto (Bld)Ordered By: Erika Garibay on 26-56-5313Xiwjoafxc/100 WBC (Bld)1.4 %.Uk HealthcareBlood hemoglobin measurement (mass/volume)Ordered By: Erika Garibay on 05-10-2022 Hemoglobin (Bld) [Mass/Vol]14.0 g/dL11.8-15.4FAult[facility] Hospital Blood leukocytes automated count (number/volume)Ordered By: Erika Garibay on 42-27-5110MBG (Bld) [#/Vol]7.7 10*3/uL4.5-11.0Uk HealthcareC reactive protein [Mass/volume] in Serum or PlasmaOrdered By: Erika Garibay on 47-64-6757MTY [Mass/Vol]1.2 mg/dL0.0-1.0Uk HealthcareCT biopsyOrdered By: Erika Garibay on 64-41-0099AQ biopsy6.3 U/L3.3-10.3FAultman HospitalComment on above:Performed at: - [facility] [place] [id number] Director: Checo Judge PhD, Phone: [phone] kinase [Enzymatic activity/volume] in Serum or PlasmaOrdered By: Erika Garibay on 14-68-2333GK [Catalytic activity/Vol]61 U/Q33-106LxgafcbmuUk HealthcareCreatinine and Glomerular filtration rate.predicted panel (S/P/Bld)Ordered By: Erika Garibay on 45-44-4000Fcpeuoagom [Mass/Vol]0.93 mg/dL 0.44-1.03Uk HealthcareEosinophils Auto (Bld) [#/Vol]Ordered By: Erika Garibay on 75-33-2920Bhvxgblfeux (Bld) [#/Vol]0.2 10*3/uL0.0-0.45 Uk HealthcareEosinophils/100 WBC Auto (Bld)Ordered By: Erika Garibay on 41-72-6860Nfeqsfmqpws/100 WBC (Bld)3.1 %.Uk HealthcareErythrocyte distribution width Auto (RBC) [Ratio]Ordered By: Erika Garibay on 77-80-6317Qzgmobgukur distribution width (RBC) [Ratio]15.6 % 11.9-15.3FAultman HospitalErythrocyte sedimentation rate by Photometric methodOrdered By: Erika Garibay on 89-61-0378ZJN Photometric method (Bld) [Velocity]34 mm/hr0-29Uk HealthcareEstimated glomerular filtration rate (GFR) non- AmericanOrdered By: Erika Garibay on 31-24-0115VIP/1.73 sq M.predicted among non-blacks MDRD (S/P/Bld) [Vol rate/Area]> 60 mL/MinUk HealthcareGlobulin Calc (S) [Mass/Vol]Ordered By: Erika Garibay on 65-37-5779Ieysxbtt (S) [Mass/Vol]2.8 g/dLUk HealthcareHematocrit Auto (Bld) [Volume fraction] Ordered By: Erika Garibay on 41-53-7461Zqojeeyivu (Bld) [Volume fraction]42.4 % 34.0-46.4FAultman HospitalLaboratory - Hematology and Cell countsOrdered By: Erika Garibay on 77-33-9551Iokssqops RBC/100 WBC (Bld) [Ratio]0.2 %0-0.5FAultman HospitalLymphocytes Auto (Bld) [#/Vol] Ordered By: Erika Garibay on 22-35-1315Sjyuomjroqf (Bld) [#/Vol]2.1 10*3/uL 1.00-4.8Uk HealthcareLymphocytes/100 WBC Auto (Bld)Ordered By: Erika Garibay on 33-82-0732Snpnshpbdyr/100 WBC (Bld)27.2 %.[facility] CenterH Auto (RBC) [Entitic mass]Ordered By: Erika Garibay on 14-16-9315RFQ (RBC) [Entitic mass]30.6 pg24.7-34.3FAultman HospitalMCHC Auto (RBC) [Mass/Vol]Ordered By: Erika Garibay on 46-61-9105FCZC (RBC) [Mass/Vol]32.9 g/dL32.0-35.0Uk HealthcareMCV Auto (RBC) [Entitic vol]Ordered By: Erika Garibay on 40-40-3224OPY (RBC) [Entitic vol]92.8 zD44-713WzqlvuwkbUk HealthcareMonocytes Auto (Bld) [#/Vol] Ordered By: Erika Garibay on 44-78-4398Lsghpcumm (Bld) [#/Vol]0.8 10*3/uL 0.0-0.8Uk HealthcareMonocytes/100 WBC Auto (Bld)Ordered By: Erika Garibay on 97-89-6975Qshwbzcoh/100 WBC (Bld)10.0 %.Uk HealthcareNeutrophils Auto (Bld) [#/Vol]Ordered By: Erika Garibay on 24-24-3808Tmqjrklqbxp (Bld) [#/Vol]4.5 10*3/uL1.8-7.7FAultman HospitalNeutrophils/100 WBC Auto (Bld)Ordered By: Erika Garibay on 05-10-2022 Neutrophils/100 WBC (Bld)58.3 %.Uk HealthcareNo Panel InformationOrdered By: Erika Garibay on 03-93-7394Rndf-Nuclear Antibody Comment 2See comment.Uk HealthcareComment on above:For more information about Hep-2 cell patterns useANApatterns.org, the official website for the InternationalConsensus on Antinuclear Antibody (ZUNILDA) Patterns (ICAP). A positive ZUNILDA result may occur in healthy individuals (lowtiter) or be associated with a variety of diseases. Seeinterpretation chart which is not all inclusive:Pattern Antigen Detected Suggested Disease Association Homogeneous DNA(ds,ss), SLE - High titers Nucleosomes, Histones Drug-induced SLE Speckled Sm, [employer], SCL-70, SLE,MCTD,PSS (diffuse form), SS-A/SS-B Sjogrens Nucleolar SCL-70, PM-1/SCL Hightiters Scleroderma, PM/DM Centromere Centro mere PSS (limited form) w/Crest syndrome variable Nuclear Dot Sp100,u89-qlmcbt Primary Biliary Cirrhosis Nuclear GP210, Primary Biliary CirrhosisMembrane emily A,B,C Performed at: [facility] [id number] Director: Checo Judge PhD, Phone: [phone] Estimated GFR ()> 60 mL/MinUk Healthcare Comment on above:GFR estimated reference range: According to KDOQI guidelines, <60 ml/min/1.73m2 is sufficient todiagnose a patient with chronic kidney disease.Pharmacy Creatinine Clearance (ChemN/[facility] Platelet mean volume Auto (Bld) [Entitic vol]Ordered By: Erika Garibay on 02-89-4999Ptfvbpto mean volume (Bld) [Entitic vol]9.4 fL6.3-10.7FAultman HospitalPlatelets Auto (Bld) [#/Vol]Ordered By: Erika Garibay on 44-36-6895Wndrnpkcw (Bld) [#/Vol]295 10*3/yK053-713OdgmgqdxcUk HealthcareProtein [Mass/volume] in Serum or PlasmaOrdered By: Erika Garibay on 11-33-4594Musboyn [Mass/Vol]7.1 g/dL6.1-7.9Uk HealthcareRBC Auto (Bld) [#/Vol]Ordered By: Erika Garibay on 38-17-0563YRB (Bld) [#/Vol]4.57 10*6/uL3.60-5.00[facility]orrow County Hospitalerum homogeneous pattern antinuclear antibody (ZUNILDA) titerOrdered By: Erika Garibay on 05-10-2022 Homogenous nuclear Ab pattern (S) [Titer]1:80.[facility] Comment on above:ICAP nomenclature: AC-1Serum nuclear antibody titerOrdered By: Erika Garibay on 64-68-4855Jteaaop Ab (S) [Titer]Positive.Uk HealthcareComment on above:Negative <1:80 Borderline 1:80 Positive >1:80 Serum or plasma alanine aminotransferase measurement without P-5'-P (enzymatic activiOrdered By: Erika Garibay on 15-47-5732MML No additional P-5'-P [Catalytic activity/Vol]82 U/J80-74CaandndxhMorrow County Hospitalerum or plasma albumin/globulin mass ratioOrdered By: Erika Garibay on 05-10-2022 Albumin/Globulin [Mass ratio]1.5 {ratio}[facility] Hospitalerum or plasma alkaline phosphatase measurement (enzymatic activity/volume)Ordered By: Erika Garibay on 30-50-9391WVP [Catalytic activity/Vol]172 U/L32-92 [facility] Hospitalerum or plasma anion gap determinationOrdered By: Erika Garibay on 21-61-6761Rnebv gap [Moles/Vol]16.3 mmol/L6.0-15.0 [facility] Hospitalerum or plasma aspartate aminotransferase measurement (enzymatic activity/volume)Ordered By: Erika Garibay on 05-10-2022 AST [Catalytic activity/Vol]39 U/R73-09ZnjvreqvdMorrow County Hospitalerum or plasma calcium measurement (mass/volume)Ordered By: Erika Garibay on 05-10-2022 Calcium [Mass/Vol]10.2 mg/dL8.2-10.2FKettering Health Behavioral Medical Centererum or plasma chloride measurement (moles/volume)Ordered By: Erika Garibay on 97-97-1225Taowjlma [Moles/Vol]98 mmol/X84-477LiqiveuqxUk Healthcare Serum or plasma glucose measurement (mass/volume)Ordered By: Erika Garibay on 38-47-8811Idxyalg [Mass/Vol]100 mg/pW85-156OiuyalfquUk Healthcare Comment on above:ADA recommended reference range Random Glucose Reference Range is dependent on time and content of last meal. Glucose of more than 200 mg/dL in a nonstressed, ambulatory subject supports the diagnosis of Diabetes Mellitus.ADA recommended reference rangeRandom Glucose Reference Range is dependent on time and content of last meal. Glucose of more than 200 mg/dL in a nonstressed, ambulatory subject supports the diagnosisof Diabetes Mellitus.Serum or plasma potassium measurement (moles/volume)Ordered By: Erika Garibay on 99-55-3361Bjnkogmvm [Moles/Vol]4.0 mmol/L3.5-5.1FKettering Health Behavioral Medical Centererum or plasma sodium measurement (moles/volume)Ordered By: Erika Garibay on 39-48-1390Qgimta [Moles/Vol]139 mmol/V171-717FtonemsqeMorrow County Hospitalerum or plasma total bilirubin measurement (mass/volume) Ordered By: Erika Garibay on 83-15-1741Uzhvkxtlm [Mass/Vol]0.5 mg/dL0.3-1.2 [facility] Hospitalerum or plasma total carbon dioxide measurement (moles/volume)Ordered By: Erika Garibay on 83-52-6498QM0 [Moles/Vol]28.7 mmol/L22.0-30.0[facility] Hospitalerum or plasma urea nitrogen measurement (mass/volume)Ordered By: Erika Garibay on 05-10-2022 Urea nitrogen [Mass/Vol]10 mg/dL9-[facility] Hospitalerum or plasma uric acid measurement (mass/volume)Ordered By: Erika Garibay on 57-41-4970Batjm [Mass/Vol]5.5 mg/dL2.6-7.2FAultman HospitalTS DL <= 0.005 mIU/L QnOrdered By: Erika Garibay on 59-25-4921HUZ Qn4.15 m[IU]/L 0.45-5.33Uk HealthcareThyroxine (T4) free [Mass/volume] in Serum or PlasmaOrdered By: Erika Garibay on 95-30-6112Aupr T4 [Mass/Vol]0.92 ng/dL0.61-1.12Uk HealthcareA1C HEMOGLOBINon 75-74-5274ImQ0s (Bld) [Mass fraction]5.7 %[employer] Other HbA1c (Bld) [Mass fraction]on 29-43-3107A2M HEMOGLOBIN [employer] Other 403-2351YJYV-MyJ-2 (COVID-19) RNA COURTNEY+probe Ql (Resp)on 47-42-2236EYEL-CoV-2 (COVID-19) RNA COURTNEY+probe Ql (Unsp spec)NegativeNortFatsoma Other ANA by IFAon 57-05-7271Kpslxplyhkj Antibodies, IFA NegativeNormalThe [facility] Health SystemComment on above:Result Comment: Negative <1:80 Borderline 1:80 Positive >1:80 ICAP nomenclature: AC-0 For more information about Hep-2 cell patterns use ANApatterns.org, the official website for the International Consensus on Antinuclear Antibody (ZUNILDA) Patterns (ICAP).Performed By: #### ANAIFA #### [facility] [address] [place] [address] Dr. Sahra DukeANTISTREPTOLYSIN O AB (ASO)on 69-32-4186Zjmupwkaxkxjvaaf O Ab92.6 IU/mLNormal0.0-200.0The [facility] Health SystemComment on above:Performed By: #### ASOAB #### [facility] [address] [place] [address] Dr. Sahra DukeRHEUMATOID FACTORon 91-34-1996UA Latex Turbid.<10.0Normal<14.0The [facility] Health SystemComment on above:Performed By: #### RF #### [facility] [address] [place] [address] Dr. Sahra DukeCRPon 63-90-5455XHX [Mass/Vol]mg/LNormal<=1.0The [facility] SystemComment on above:Performed By: #### URIC, CRP #### [facility] [address] [place] [address] Dr. Sahra DukeURIC ACID SERUMon 78-50-8009Dsoyd [Mass/Vol]6.6 mg/dLCritically high2.6-6.0The [facility] SystemComment on above:Performed By: #### URIC, CRP #### [facility] [address] [place] [address] Dr. Sahra Malone Visit (Cardiology)on 38-75-6462Ttyije-up visit Diagnoses/Problems Assessed Chest pain (786.50) (R07.9) [...] we can help. You may also call 1-055-TREYNOW for free resources and assistance.; Status:Complete - Retrospective Authorization; Done: 28Dec2021 Patient Instructions By signing my name below, Sasha Harris LPN, Scribe, attest that this documentation has been prepared under the direction and in the presence of Dr. Noman Henriquez MD. All medical record entries made by the Kevin were at my direction and personally dictated by me. Black reviewed the chart and agree that the [...] MCG Inhalation CapsuleU (more content not included)... NormalUH TouchworksTobacco Screening.on 41-96-1679Aqjwh depression screening assessmentNoMultiCare [facility] [employer] DO Work Phone: Fall risk assessmenta) No falls within the last year [facility] [employer] DO Work Phone: Tobacco use status CPHSb) [facility] Work Phone: Office Visit (Cardiology)on 18-24-9366Cbelmp-up visit Diagnoses/Problems Assessed Chest pain (786.50) (R07.9) [...] my direction and personally dictated by me. Black reviewed the chart and agree that the [...] by perfusion images but nondiagnostic ST-T changes werenoted. Patient denies any previous cardiac history or [...] hydroCHLOROthiazide 25 MG Oral (more content not included)...NormalUH [place] Tobacco Screening.on 35-21-8204Wdpoltv use status CPHSa) Yes-[facility]- [place] [address] DO Work Phone: Vital Signs Date TimeVital SignValuePerforming ZgubkewgpMfpcxyjb65-09-1301 09:15-0400Body lyfbuo914.3 cmAnora Wan DPM Work Phone: [facility] InstituteUkkmittkos05-46-6524 09:15-0400Body mass index (BMI) [Ratio]51.25 kg/b8WdcwqisSp Wan DPM Work Phone: [facility] InstituteMuhxdaguor30-17-8439 09:15-0400Body .22 kgSp Brooksher DPM Work Phone: [facility] InstituteLvgyvcidos53-09-0014 14:32-0400Body mass index (BMI) [Ratio]51.25 kg/o0Ttoyqrrbery Hector DO Work Phone: noSaint John's Regional Health CenterSoyxxpdkbs55-02-2483 14:32-0400Body .22 kgChristopher Hector DO Work Phone: noSaint John's Regional Health CenterTmwdwangbm77-71-4412 14:32-0400Diastolic blood yrnxlccf64 mm[Hg]Christopher Hector DO Work Phone: [facility] InstituteZdpkknvxfa39-97-3574 14:32-0400Heart rate99 /min Christjeremiah Young DO Work Phone: [facility] InstituteWnxphkopsh05-37-8043 14:32-6629AvX6% (BldA) [Mass fraction]91 %Ashley Young DO Work Phone: [facility] InstituteYjmfunuljx55-52-3480 14:32-0400Systolic blood krdtkmah020 mm[Hg]Ashley Young DO Work Phone: [facility] InstituteRgmbmijjyr80-02-1402 10:30-0400Body .3 cmMaiftikhar Orosco PA Work Phone: [facility] InstituteNnftutsroo38-36-5977 10:30-0400Body mass index (BMI) [Ratio]50.16 kg/o8Vqrvnkxiftikhar Orosco PA Work Phone: [facility] InstituteCsehhcdjtx83-35-6811 10:30-0400Body .86 kgMattkimberly Orosco PA Work Phone: [facility] InstituteJnrwkzxmkk72-74-0391 11:02-0400Body taxmgb984.32 cmNP-Mira Saravia Work Phone: 1(438)404-[address] [place], [place] 7662710-28-2024 11:02-0400 Body mass index (BMI) [Ratio]48 kg/m2GEOFFREY-Mira Saravia Work Phone: [phone])880-[address] [place], [place] 7662710-28-2024 11:02-0400 Body .32 kgNP-Mira Saravia Work Phone: 1(604)567-[address] [place], [place] 7662710-07-2024 11:41-0400 Diastolic blood pzphebyy02 mm[Hg]Arianna [address] [place] [address] 05-25-2024 11:41-0400Heart rate77 /minEly [address] [place] [address] 05-25-2024 11:41-0400Systolic blood mm[Hg]Arianna [address] [place], [place] 5676308-15-2024 15:05-0400Body braisj185.3 cmNoman Henriquez MD Work Phone: [phone])[address] [place], [place] 1663408-15-2024 15:05-0400 Body mass index (BMI) [Ratio]47.86 kg/l5ThxddttNoman Henriquez MD Work Phone: 1(475)[address]08-15-2024 15:05-0400 Body uhgnja538.87 kgNoman Henriquez MD Work Phone: 1(767)[address]08-15-2024 15:05-0400 Diastolic blood kxylblww06 mm[Hg]Noman Henriquez MD Work Phone: 1(882)[address]08-15-2024 15:05-0400 Heart rate88 /minNoman Henriquez MD Work Phone: 1(332)[address]08-15-2024 15:05-0400 Systolic blood vigjwsgk528 mm[Hg]Noman Henriquez MD Work Phone: 1(924)[address]08-06-2024 17:46-0400 Body wfadez440.32 cmNP-C Sisi Saravia Work Phone: 1(863)218-[address] [place], [place] 7662708-06-2024 17:46-0400 Body llzewkhmjya14.7 [degF]SIMONIZER-C Sisi Saravia Work Phone: 1(532)894-[address] [place], [place] 7662708-06-2024 17:46-0400 Body dxwyir093.32 kgNP-C Sisi Saravia Work Phone: 1(179)[address] [place], [place] 7662708-06-2024 17:46-0400 Diastolic blood mm[Hg]SIMONIZER-C Sisi Saravia Work Phone: [facility]08-06-2024 17:46-0400 Heart rate95 /minNP-C Sisi Saravia Work Phone: 1(182)095-[address] [place], [place] 7662708-06-2024 17:46-0400 Respiratory rate20 /minNP-C Sisi Saravia Work Phone: 1(289)483-[address] [place], [place] 7662708-06-2024 17:46-0400 SaO2% (BldA) [Mass fraction]98 %SIMONIZER-C Sisi Leyvamer Work Phone: 1(123)483-[address] [place], [place] 7662708-06-2024 17:46-0400 Systolic blood kbwieqeo431 mm[Hg]SIMONIZER-C Sisibecka Leyvamer Work Phone: 1(332)[address]05-23-2024 14:55-0400 Body bdfaua206.59 cmNP-C Sisi Leyvamer Work Phone: 1(280)[address] [place], [place] 1295505-23-2024 14:55-0400 Body mass index (BMI) [Ratio]48.9 kg/m2NP-C Sisi Leyvamer Work Phone: 1(659)[address] [place], [place] 1295505-23-2024 14:55-0400 Body awwkqk474.95 kgNP-C Sisi Saravia Work Phone: 1(838)[address] [place], [place] 1295504-15-2024 11:35-0400 Diastolic blood ffffscoh16 mm[Hg]SIMONIZER-C Sisi Saravia Work Phone: 1(058)[address] [place], [place] 1295504-15-2024 11:35-0400 Heart gliv684 /minNP-C Sisi Saravia Work Phone: 1(754)[address] [place], [place] 1295504-15-2024 11:35-0400 SaO2% (BldA) [Mass fraction]94 %SIMONIZER-C Sisi Saravia Work Phone: 1(639)[facility]-[address] [place], [place] 7662704-15-2024 11:35-0400 Systolic blood gbhonglf285 mm[Hg]SIMONIZER-C Sisibecka Leyvamer Work Phone: 1(832)[address] [place], [place] 1295503-25-2024 17:01-0400 Body mkqivs434.59 cmNP-C Sisi Leyvamer Work Phone: 1(978)[address] [place], [place] 1295503-25-2024 17:01-0400 Body mmamufqwajo00.9 [degF]SIMONIZER-C Sisibecka Leyvamer Work Phone: 1(511)[address] [place], [place] 1295503-25-2024 17:01-0400 Body .23 kgNP-C Sisi Rani Work Phone: 1(078)483-[address] [place], [place] 7662703-25-2024 17:01-0400 Diastolic blood lvalotpr22 mm[Hg]SIMONIZER-C Sisi Rani Work Phone: [phone])[address]03-25-2024 17:01-0400 Heart rate88 /minNP-C Sisi Rani Work Phone: 1(419)[facility]-[address] [place], [place] 7662703-25-2024 17:01-0400 Respiratory rate16 /minNP-C Sisi Rani Work Phone: [phone])[address] [place], [place] 1295503-25-2024 17:01-0400 SaO2% (BldA) [Mass fraction]97 %SIMONIZER-C Sisi Rani Work Phone: 1(300)[address] [place], [place] 1295503-25-2024 17:01-0400 Systolic blood uzxsgpmx821 mm[Hg]SIMONIZER-C Sisi Rani Work Phone: 1(419)[address] [place], [place] 1295503-14-2024 10:41-0400 Body .59 cmNP-C Sisi Rani Work Phone: 1(712)[address] [place], [place] 1295503-14-2024 10:41-0400 Body mass index (BMI) [Ratio]48.2 kg/m2NP-C Sisi Rani Work Phone: 1(723)[address] [place], [place] 1295503-14-2024 10:41-0400 Body gohvyg868.59 kgNP-C Sisi Rani Work Phone: 1(419)[address] [place], [place] 1295503-14-2024 10:41-0400 Diastolic blood emexadlv19 mm[Hg]SIMONIZER-C Sisi Rani Work Phone: 1(729)[address] [place], [place] 1295503-14-2024 10:41-0400 Heart rate90 /minNP-C Sisi Rani Work Phone: 1(170)[address] [place], [place] 1295503-14-2024 10:41-0400 SaO2% (BldA) [Mass fraction]95 %SIMONIZER-C Sisi Rani Work Phone: 1(419)[address]03-14-2024 10:41-0400 Systolic blood eigbelql629 mm[Hg]SIMONIZER-C Sisibecka Leyvamer Work Phone: 1(327)[address] [place], [place] 1295502-21-2024 09:55-0500 Diastolic blood pxuwqzqr22 mm[Hg]SIMONIZER-C Sisibecka Leyvamer Work Phone: 1(091)[address]02-21-2024 09:55-0500 Heart rate82 /minNP-C Sisi Leyvamer Work Phone: 1(097)[address]02-21-2024 09:55-0500 Respiratory rate18 /minNP-C Sisi Leyvamer Work Phone: 1(193)[address] [place], [place] 1295502-21-2024 09:55-0500 SaO2% (BldA) [Mass fraction]94 %SIMONIZER-C Sisi Saravia Work Phone: 1(989)[address]02-21-2024 09:55-0500 Systolic blood ribzdezv788 mm[Hg]SIMONIZER-C Sisi Saravia Work Phone: 1(031)[address] [place], [place] 1295502-21-2024 09:15-0500 Inhaled oxygen flow rate3 L/minNP-C Sisi Saravia Work Phone: 1(333)[address] [place], [place] 1295502-21-2024 08:21-0500 Body huhfzg377.32 cmNP-C Sisi Leyvamer Work Phone: 1(198)[address]02-21-2024 08:21-0500 Body .32 kgNP-C Sisi Leyvamer Work Phone: 1(504)[address]01-30-2024 10:45-0500 Body iyfifv953.32 cmSbeau Bansal Other [facility]01-30-2024 10:45-0500 Diastolic blood jaubiohw71 mm[Hg]Jet Bansal Other [facility]01-30-2024 10:45-0500 SaO2% (BldA) [Mass fraction]96 %Jet Bansal Other [facility] [employer] Other [id number] 10:45-0500Systolic blood bpvkevdi980 mm[Hg] Jet Bansal Other [facility]01-10-2024 10:53-0500 Diastolic blood cyxxmtxo82 mm[Hg]SIMONIZER-C Sisi Rani Work Phone: 1(674)789-[address] [place], [place] 7662701-10-2024 10:53-0500 Heart rate90 /minNP-C Sisi Rani Work Phone: 1(177)[address]01-10-2024 10:53-0500 Respiratory rate16 /minNP-C Sisi Rani Work Phone: 1(914)[address] [place], [place] 1295501-10-2024 10:53-0500 SaO2% (BldA) [Mass fraction]97 %SIMONIZER-C Sisi Rani Work Phone: 1(380)[address] [place], [place] 1295501-10-2024 10:53-0500 Systolic blood aaawrvja103 mm[Hg]SIMONIZER-C Sisi Rani Work Phone: 1(402)[address] [place], [place] 1295501-10-2024 10:14-0500 Inhaled oxygen flow rate3 L/minNP-C Sisi Rani Work Phone: 1(304)[address] [place], [place] 1295501-10-2024 09:54-0500 Body .32 cmNP-C Sisi Rani Work Phone: 1(993)[address] [place], [place] 1295501-10-2024 09:54-0500 Body biagtc500.04 kgNP-C Sisi Rani Work Phone: 8(990)[address]12-13-2023 13:30-0500 Body xosseo922.32 cmSbeau Bansal Other [facility]12-13-2023 13:30-0500 Diastolic blood ktkdbqeo16 mm[Hg]Jet Bansal Other [facility]12-13-2023 13:30-0500 SaO2% (BldA) [Mass fraction]97 %Jet Bansal Other [place] Other 773367-19-5617 13:30-0500Systolic blood mm[Hg] Jet Hwangky Other [facility]12-06-2023 10:15-0500 Diastolic blood mm[Hg]SIMONIZER-C Sisi Rani Work Phone: 1(436)453-[address] [place], [place] 7662712-06-2023 10:15-0500 Heart rate76 /minNP-C Sisi Rani Work Phone: 1(506)494-[address] [place], [place] 7662712-06-2023 10:15-0500 Respiratory rate16 /minNP-C Sisi Rani Work Phone: 1(425)977-[address] [place], [place] 7662712-06-2023 10:15-0500 SaO2% (BldA) [Mass fraction]98 %SIMONIZER-C Sisi Rani Work Phone: 1(736)993-[address] [place], [place] 7662712-06-2023 10:15-0500 Systolic blood mm[Hg]SIMONIZER-C Sisi Rani Work Phone: 1(722)[address] [place], [place] 1295512-06-2023 09:36-0500 Inhaled oxygen flow rate3 L/minNP-C Sisi Rani Work Phone: 1(563)636-[address] [place], [place] 7662712-06-2023 09:09-0500 Body ehnxzo577.32 cmNP-C Sisi Rani Work Phone: 1(389)149-[address] [place], [place] 7662712-06-2023 09:09-0500 Body enectw683.86 kgNP-C Sisi Rani Work Phone: 1(157)[address]11-21-2023 10:30-0500 Body .32 cmSclemente Hwangky Other [place] [employer] Other [id number] 10:30-0500Body mass index (BMI) [Ratio] 49.74 kg/s4WenkqsJet Bansal Other [employer] Other 11-21-2023 10:30-0500Body zmsauc539.96 kgJet Bansal Other [employer] Other 11-21-2023 10:30-0500Diastolic blood usqgqhdm95 mm[Hg] Jet Bansal Other [employer] Other 11-21-2023 10:30-3767CbS7% (BldA) [Mass fraction]92 % Jet Bansal Other [employer] Other 11-21-2023 10:30-0500Systolic blood lgxazjlc408 mm[Hg] Jet Bansal Other [employer] Other 10-09-2023 13:00-0400Body tlizov428.32 cmNahid Landry Other [employer] Other 10-09-2023 13:00-0400Body mass index (BMI) [Ratio] 48.96 kg/i6XwyqoqNahid Landry Other [employer] Other 10-09-2023 13:00-0400Body ofwntg349.28 kgNahid Landry Other [employer] Other 10-09-2023 13:00-0400Diastolic blood ickkbfqk23 mm[Hg] Nahid Landry Other [employer] Other 10-09-2023 13:00-0400Respiratory rate20 /minDmecca Landry Other [employer] Other 10-09-2023 13:00-4029GbB2% (BldA) [Mass fraction]98 % Nahid Singhdiff Other [employer] Other 10-09-2023 13:00-0400Systolic blood mm[Hg] Nahid Landry Other [employer] Other 07-06-2023 11:15-0400Body rmdmif840.32 cmVinoddeandre Singhdiff Other [employer] Other 07-06-2023 11:15-0400Body mass index (BMI) [Ratio] 48.09 kg/x3Uwmnna Frantz Other [employer] Other 07-06-2023 11:15-0400Body tbquqr024.37 kgVinoddeandre Singhdiff Other [employer] Other 07-06-2023 11:15-0400Diastolic blood luhqttjs85 mm[Hg] Nahid Frantz Other [employer] Other 07-06-2023 11:15-0400Respiratory rate20 /Roxanne Landry Other [employer] Other 07-06-2023 11:15-2579KmE4% (BldA) [Mass fraction]98 % Nahid Landry Other [facility] Other 07-06-2023 11:15-0400Systolic blood mm[Hg] Nahid Landry Other [facility] Other 02-22-2023 10:45-0500Body pdislk425.32 cmLawrencolby Kemp Other [facility] Other 02-22-2023 10:45-0500Body mass index (BMI) [Ratio] 52.24 kg/k4Hqlxewjh Viridiana Other [facility] Other 02-22-2023 10:45-0500Body hajdzu322.4 kgLawrence Viridiana Other [facility] Other 02-22-2023 10:45-0500Diastolic blood umptqoca37 mm[Hg] Fransisco Kemp Other [facility] Other 02-22-2023 10:45-0500Respiratory rate20 /minLawrdina Kemp Other [facility] Other 02-22-2023 10:45-0500Systolic blood pvgmxjky875 mm[Hg] Fransisco Englandormack Other [facility] Other 01-19-2023 11:00-0500Body .32 cmDawn Fitt Other [facility] Other 01-19-2023 11:00-0500Body mass index (BMI) [Ratio] 51.87 kg/m2Dawn Fitt Other [facility] Other 01-19-2023 11:00-0500Body .58 kgDawn Fitt Other [facility] Other 12-08-2022 14:30-0500Body rsamnx994.32 cmVinoddeandre Singhdiff Other [facility] Other 12-08-2022 14:30-0500Body mass index (BMI) [Ratio] 51.53 kg/i5Jsctod Frantz Other [facility] Other 12-08-2022 14:30-0500Body ggpjex417.86 kgNahid Singhdiff Other [facility] Other 12-08-2022 14:30-0500Diastolic blood cqaivgyl44 mm[Hg] Nahid Landry Other [facility] Other 12-08-2022 14:30-0500Respiratory rate20 /minDmecca Landry Other [facility] Other 12-08-2022 14:30-4271NaM7% (BldA) [Mass fraction]99 % Nahid Landry Other [facility] Other 12-08-2022 14:30-0500Systolic blood vuxpsrwk985 mm[Hg] Nahid Landry Other [facility] [employer] Other 11-30-2022 16:15-0500Body hpzzay669.32 cmDawn Fitt Other [employer] Other 11-22-2022 15:01-0500Body jvkgby492.32 cmPamela S Rani Work Phone: [phone]-Wrgwn [facility] DO Work Phone: 1(646) 505-223811-22-2022 15:01-0500Body mass index (BMI) [Ratio] 51.41 kg/u7Vcxmox S Rani Work Phone: [phone]-Begoc [facility] 250 DO Work Phone: [phone] 15:01-0500Body surface area Derived from formula1.99 t0Ofshww S Rani Work Phone: [phone]-Qacfv [facility] 250 DO Work Phone: [phone] 15:01-0500Body mdwkoq919.59 kgPajamela S Rani Work Phone: [phone]-Uibkf [facility] 250 DO Work Phone: [phone] 15:01-0500Diastolic blood ylqgxxvr06 mm[Hg] Sisi S Rani Work Phone: [phone]-Dieac [facility] DO Work Phone: [phone]([phone] 15:01-0500Heart rate80 /minPajamela S Rani Work Phone: [phone]-Hggbq [facility] 250 DO Work Phone: [phone] 15:01-0500Systolic blood kxnzrfus066 mm[Hg] Sisi S Rani Work Phone: [phone]-Steyc [facility] 250 DO Work Phone: 1(888)[phone] 16:36-0500Heart rate94 /minNP-C Sisi Rani Work Phone: [facility]11-06-2022 16:36-0500 Respiratory rate16 /minNP-C Sisi Rani Work Phone: [facility]11-06-2022 15:30-0500 Body zjfmzeqbkrx74.3 [degF]SIMONIZER-C Sisi Rani Work Phone: [facility]11-06-2022 15:30-0500 Diastolic blood oardauax75 mm[Hg]SIMONIZER-C Sisi Rani Work Phone: 1(117)312-[address] [place], [place] 7662711-06-2022 15:30-0500 SaO2% (BldA) [Mass fraction]97 %SIMONIZER-C Sisi Saravia Work Phone: 1(126)382-[address] [place], [place] 7662711-06-2022 15:30-0500 Systolic blood xyaaqkui040 mm[Hg]SIMONIZER-C Sisi Saravia Work Phone: 1(219)624-[address] [place], [place] 7662711-06-2022 05:17-0500 Body zxyxhe539.8 kgNP-C Sisi Saravia Work Phone: 1(567)783-[address] [place], [place] 7662711-04-2022 20:00-0400 Inhaled oxygen flow rate3 L/minNP-Mira Saravia Work Phone: 1(720)158-[address] [place], [place] 7662711-04-2022 18:45-0400 Body yqbdps620.32 cmNP-C Sisi Saravia Work Phone: 1(618)269-[address] [place], [place] 7662711-04-2022 11:30-0400 Body sqscgy877.32 cmAjessenia Avilez Other [employer] Other 11-04-2022 11:30-0400Body mass index (BMI) [Ratio]51.2 kg/a5TopmgCarol Avilez Other [employer] Other 11-04-2022 11:30-0400Body urebpnpuksi16.9 [degF]Carol Avilez Other [employer] Other 11-04-2022 11:30-0400Body .13 kgCarol Avilez Other [employer] Other 11-04-2022 11:30-0400Diastolic blood athejwdo76 mm[Hg] Carol Avilez Other [employer] Other 11-04-2022 11:30-0400Respiratory rate22 /minYger Raghav Other [employer] Other 11-04-2022 11:30-3986JcM8% (BldA) [Mass fraction]96 % Carol Avilez Other [employer] Other 11-04-2022 11:30-0400Systolic blood rcgsoefb75 mm[Hg] Carol Avilez Other [employer] Other 10-27-2022 14:45-0400Body jykkqk503.32 cmNahid Landry Other [employer] Other 10-27-2022 14:45-0400Body mass index (BMI) [Ratio] 51.55 kg/c4McvzvbNahid Landry Other [employer] Other 10-27-2022 14:45-0400Body nfefde869.9 kgNahid Landry Other [employer] Other 10-27-2022 14:45-0400Diastolic blood ticgioeh16 mm[Hg] Nahid Landry Other [employer] Other 10-27-2022 14:45-0400Respiratory rate20 /minDmecca Landry Other [employer] Other 10-27-2022 14:45-8529HcD8% (BldA) [Mass fraction]96 % Nahid Landry Other [employer] Other 10-27-2022 14:45-0400Systolic blood xhakuvrv924 mm[Hg] Nahid Singhdiff Other [employer] Other 09-15-2022 14:45-0400Body lmtasy759.32 cmVinoddeandre Landry Other [employer] Other 09-15-2022 14:45-0400Body mass index (BMI) [Ratio] 51.76 kg/f2Wnuvrxdeandre Landry Other [employer] Other 09-15-2022 14:45-0400Body hpfnae015.36 kgNahid Landry Other [employer] Other 09-15-2022 14:45-0400Diastolic blood zuekwyvu08 mm[Hg] Nahid Singhdiff Other [employer] Other 09-15-2022 14:45-0400Respiratory rate20 /minDmecca Singhdiff Other [employer] Other 09-15-2022 14:45-5500OcV4% (BldA) [Mass fraction]98 % Nahid Singhdiff Other [employer] Other 09-15-2022 14:45-0400Systolic blood bzwlyddt991 mm[Hg] Nahid Singhdiff Other [employer] Other 08-23-2022 09:00-0400Body .32 cmRobert Armando II Other [employer] Other 08-23-2022 09:00-0400Body mass index (BMI) [Ratio] 52.45 kg/a5Esyusv Hennepin II Other [employer] Other 08-23-2022 09:00-0400Body dybvqh694.85 kgRobert Hennepin II Other [employer] Other 08-04-2022 14:00-0400Body vycfwr215.32 cmNahid Landry Other [employer] Other 08-04-2022 14:00-0400Body mass index (BMI) [Ratio] 52.18 kg/o8VkosgkNahid Landry Other [employer] Other 08-04-2022 14:00-0400Body xkcyaj506.26 kgNahid Landry Other [employer] Other 08-04-2022 14:00-0400Diastolic blood hxmgupic88 mm[Hg] Nahid Landry Other [employer] Other 08-04-2022 14:00-0400Respiratory rate18 /minDmecca Landry Other [employer] Other 08-04-2022 14:00-5164LfF2% (BldA) [Mass fraction]100 % Nahid Landry Other [employer] Other 08-04-2022 14:00-0400Systolic blood hfjhbtan734 mm[Hg] Nahid Landry Other [employer] Other 08-02-2022 14:30-0400Body adeduq172.32 Norma Lawson Other [employer] Other 08-02-2022 14:30-0400Body mass index (BMI) [Ratio] 50.15 kg/r5FqwtxlscsNimco Lawson Other [employer] Other 08-02-2022 14:30-0400Body kxvfargzuzm99.2 [degF] Nimco Lawson Other [employer] Other 08-02-2022 14:30-0400Body agnpvp323.86 kgStjono Lawson Other [employer] Other 08-02-2022 14:30-0400Respiratory rate18 /minSbranden Lwason Other [employer] Other 08-02-2022 14:30-7154XsU4% (BldA) [Mass fraction]95 % Nimco Lawson Other [employer] Other 06-14-2022 14:00-0400Body .32 cmNahid Landry Other [employer] Other 06-14-2022 14:00-0400Body mass index (BMI) [Ratio] 53.04 kg/q8FixxzmNahid Landry Other [employer] Other 06-14-2022 14:00-0400Body .12 kgNahid Landry Other [employer] Other 06-14-2022 14:00-0400Diastolic blood jrowycqq55 mm[Hg] Nahid Landry Other [employer] Other 06-14-2022 14:00-0400Respiratory rate24 /Roxanne Landry [facility] [employer] Other 06-14-2022 14:00-5008YzG9% (BldA) [Mass fraction]96 % Nahid Landry Other [facility] [employer] Other 06-14-2022 14:00-0400Systolic blood cywrfuzm614 mm[Hg] Nahid Landry Other [employer] Other 05-12-2022 15:42-0400Body vosjgg301.32 cmPamela S Rani Work Phone: [phone]-Mgojw [place] [employer] 250 DO Work Phone: 1(438) 883-760605-12-2022 15:42-0400Body mass index (BMI) [Ratio] 54.13 kg/s1Lytfjd S Rani Work Phone: [phone]-Jbxgt [place] [employer] 250 DO Work Phone: 1(590) 500-167105-12-2022 15:42-0400Body surface area Derived from formula2.03 t3Elhoia S Rani Work Phone: [phone]-Vebqv [place] [employer] 250 DO Work Phone: 1([phone] 715-515305-12-2022 15:42-0400Body nbaamq348.48 kgPamela S Rani Work Phone: [phone]-Qjrpv [place] [employer] 250 DO Work Phone: 1(956) 286-404405-12-2022 15:42-0400Diastolic blood azlqczis33 mm[Hg] Sisi S Rani Work Phone: [phone]-Oiwfk [place] [employer] 250 DO Work Phone: 1([phone]) [phone] 15:42-0400Heart rate98 /minPamela S Rani Work Phone: [phone]-Vwbac [place] [employer] 250 DO Work Phone: 1(201) [phone] 15:42-0400Systolic blood gfdvkrto528 mm[Hg] Sisi S Rani Work Phone: [phone]-Idokh [facility] 250 DO Work Phone: 1([phone] 11:42-0500Diastolic blood hazpvoba64 mm[Hg] Sisi S Rani Work Phone: [phone]-Tsqci [facility] 250 DO Work Phone: 1([phone] 11:42-0500Systolic blood xldmyziu331 mm[Hg] Sisi S Rani Work Phone: [phone]-Vfcap [facility] 250 DO Work Phone: 1(650)[phone] 11:41-0500Body irxaku703.32 cmPamela S Rani Work Phone: [phone]-Lanpo [facility] 250 DO Work Phone: 1(911)[phone] 11:41-0500Body mass index (BMI) [Ratio]53.3 kg/l3Ifhodd S Rani Work Phone: [phone][facility] DO Work Phone: 1(679)[phone] 11:41-0500Body surface area Derived from formula2.02 o0Cgapyc S Rani Work Phone: [phone]-Hfibr [facility] 250 DO Work Phone: 1([phone])[phone] 11:41-0500Body .67 kgPamela S Rani Work Phone: [phone]-Hputl [facility] 250 DO Work Phone: 1(368)[phone] 11:41-0500Diastolic blood qyqaehbu72 mm[Hg] Sisi S Rani Work Phone: [phone]-Hxbez [facility] 250 DO Work Phone: 1(461)[phone] 11:41-0500Heart nocp191 /minPamela S Rani Work Phone: 1([phone]-Idswq [facility] 250 DO Work Phone: 1(688) 253-482601-07-2022 11:41-0500Systolic blood admfjgau818 mm[Hg] Sisi Leyvamer Work Phone: [phone]-Laocn [facility] 250 DO Work Phone: Encounters Encounter DateEncounter TypeCare ProviderFacilityStart: 94-28-3679ublukebhnz Laurel CassidyFacility:HEBER BanegasevueStart: 05-18-2025 End: 92-04-5441Nihncywmi encounterMarshall Brink PTANOMS [facility] Start: 01-23-4880mzbbnzesdeMhfoaqrqrph AbdelazizFacility:[facility]art: 05-06-2025 End: 23-86-5643lgewkksuhcFskihbz A. MouchliFacility:[facility]start: 05-06-2025 End: 39-51-3459Usozvzx encounter procedureLaurel Cassidy [phone]-[facility]thyfBl[facility] Start: 05-05-2025 End: 32-15-9779Noyujt flowsheetMarshall Brink PTANOMS [facility] Start: 05-05-2025 End: 57-89-1367Qbiyeb flowsheetMarshall Brink PTANOMS [facility] Start: 05-05-2025 End: 40-01-6649jhbwxeyfntRnyuysby Brink PTANOMS [facility] TherapyComment on above:Spondylosis without myelopathy or radiculopathy, lumbosacral region (Primary Dx); Arthritis of lumbar spine; Sedentary lifestyleStart: 04-30-2025 End: 63-67-9329Xbotsx flowsheetMarshall Brink PTANOMS [facility] Start: 04-30-2025 End: 02-66-4832Nxwmdb flowsheetMarshall Brink PTANOMS [facility] Start: 04-30-2025 End: 78-52-5089nbcyresqkjDljpwfyx Brink PTANOMS [facility] TherapyComment on above:Spondylosis without myelopathy or radiculopathy, lumbosacral region (Primary Dx); Arthritis of lumbar spine; Sedentary lifestyleStart: 04-26-2025 End: 73-30-7913Nooslm flowsheetMaruzair Beck PTANOMS [facility] Start: 04-26-2025 End: 61-67-4936Hlvjpt flowsheetMaruzair Beck PTANOMS [facility] Start: 04-26-2025 End: 00-57-1794igbzddilhrHtwqxkks Brink PTANOMS [facility] TherapyComment on above:Spondylosis without myelopathy or radiculopathy, lumbosacral region (Primary Dx); Arthritis of lumbar spine; Sedentary lifestyleStart: 04-23-2025 End: 70-78-2395Wbonwx flowsheetSammantha Chacon PTNOMS [facility] Start: 04-23-2025 End: 40-04-7571Efufmq flowsheetSammantha Chacon PTNOMS [facility] Start: 04-23-2025 End: 58-43-4296hzwilzonmcUfvkqbefj Chacon PTNOMS [facility] Comment on above:Spondylosis without myelopathy or radiculopathy, lumbosacral region (Primary Dx)Start: 73-17-4749xawixaseupVsytoji MichelleliFacility:Verito Connolly DHStart: 02-04-2025 End: 73-07-9248mukisyxzcaEgijk TurovskayaFacility:[facility] Hospitaltart: 01-06-2025 End: 91-08-3162Bgvyrj flowsheetAnthony S Toddher DPM Work Phone: noMS PODIATRYStart: 01-06-2025 End: 01-20-6877Fqstty flowsheetAnthony S Toddher DPM Work Phone: noMS PODIATRYStart: 01-06-2025 End: 96-99-5536Gmvdza outpatient visit 25 minutesAnthvalentin S Soco DPM Work Phone: noMS PODIATRYComment on above:Primary osteoarthritis of left ankle (Primary Dx); Valgus deformity, not elsewhere classified, left ankle; Instability of left ankle joint; Difficulty walking; Diabetes mellitus due to underlying condition with diabetic polyneuropathy, with long-term current use of insulin ([facility])Start: 01-06-2025 End: 87-83-3416xfvudwfdvtXJXQOQB S RUSHERNot AvailableStart: 12-30-2024 End: 42-36-5039Cxqsti outpatient new 30 minutesChristopher Hector DO Work Phone: ana SANDUSKYComment on above:Degeneration of intervertebral disc of lumbar region with discogenic back pain and lower extremity pain (Primary Dx)Start: 12-30-2024 End: 57-16-9859btqwhcbsqdXJKXCSERXXL HASSETTNot AvailableStart: 12-30-2024 End: 01-01-2091Exwmsf flowsheetChristopher Hector DO Work Phone: ana SANDUSKYStart: 12-30-2024 End: 17-93-5360Crtkzt flowsheetChristopher Hector DO Work Phone: ana LEONARDOUSKYStart: 12-23-2024 End: 08-76-9170Bfcuiz Sabine DEMPSEY Work Phone: noms FB ORTHOPAEDICSStart: 12-23-2024 End: 44-34-3025Ekccql Sabine DEMPSEY Work Phone: noms FB ORTHOPAEDICSStart: 12-23-2024 End: 52-54-4221Hbtviv outpatient visit 25 minutesMattkimberly DEMPSEY Work Phone: noms FB ORTHOPAEDICSComment on above:Acute left ankle pain (Primary Dx); Left foot pain; Arthritis of left ankle; Bilateral leg edemaStart: 12-23-2024 End: 09-49-2195nexuxqxbspQVPULSJ J MEYERNot AvailableStart: 06-15-2024 End: 66-66-5288gusafyddsqUYSmith Saravia Work Phone: [facility] Work Phone: Start: 06-15-2024 End: 75-35-1292Qtjsfje encounter procedureIDALMIS Saravia Work Phone: [facility] Gastroenterology Work Phone: Start: 13-19-6990Xrdtakiurt RecurringIDALMIS Saravia Work Phone: [facility] CredibleStart: 05-26-2024 End: 39-54-4054Coqgpwpsas hospital visit by Vicki Masters 1[facility]Start: 05-26-2024 End: 67-33-7278dcnrhfvjffDSUNPKVOhioHealth Mansfield Hospitaltart: 05-25-2024 End: 58-51-4811Gmqnwtqizg hospital visit by Vicki Masters 1[facility] CenterComment on above:Chest pain, unspecified typeStart: 05-25-2024 End: 02-60-0472zeohaukomeLHYFUMXMercy Health St. Vincent Medical Centertart: 04-06-2024 End: 47-42-9090Pdntwx outpatient visit 15 minutesErika DEMPSEY Work Phone: noms [facility] ORTHOComment on above:Right hip pain (Primary Dx); Piriformis syndrome, rightStart: 04-02-2024 End: 87-20-5954rxkketyoozLPSUFXNPiedmont Newnan AmbulatoryStart: 04-02-2024 End: 22-50-4986Omvrln outpatient visit 25 minutesNoman Henriquez MD Work Phone: uh [facility] HospitalComment on above:Chest pain, unspecified type; Essential hypertension; Hyperlipidemia, unspecified hyperlipidemia type; Sleep apnea, unspecified type; Chronic obstructive pulmonary disease, unspecified COPD type (Multi); Diabetes mellitus type II, non insulin dependent (Multi); Palpitations; BMI 45.0-49.9, adult (Multi); Current smokerStart: 03-24-2024 End: 25-88-0525Tygtlhelx department patient visitNP-C Sisi Saravia Work Phone: [facility]-Emergency Room Work Phone: Start: 58-04-2697Memvymyfnn RecurringNP-C Sisi Saravia Work Phone: [facility]- CredibleStart: 01-09-2024 End: 88-22-9367zwxskonudrKU-C Sisibecka Leyvamer Work Phone: [facility] Work Phone: Start: 01-09-2024 End: 08-39-8359Tglqopk encounter procedureNP-C Sisi Saravia Work Phone: [facility] Work Phone: Start: 01-09-2024 End: 33-12-5258ooxqbtdbwdSY-C Sisibecka Leyvamer Work Phone: [facility] Work Phone: Start: 01-09-2024 End: 55-86-5471Rygmdeb encounter procedureNP-C Sisi Saravia Work Phone: [facility] [place] [facility] Start: 50-38-4088Litmjyjbky RecurringNP-C Sisi Saravia Work Phone: [facility] CredibleStart: 01-02-2024 End: 41-49-6504erqdiuqjtzGB-C Sisi Isabella Rani Work Phone: [facility] Work Phone: Start: 01-02-2024 End: 61-33-4640Bsmdxbn encounter procedureNP-C Sisibecka Leyvamer Work Phone: [facility] [place] Start: 12-02-2023 End: 17-39-9756tfgcatuyycDC-C Sisi Isabella Rani Work Phone: [facility] Work Phone: Start: 12-02-2023 End: 93-64-6866Tprosnw encounter procedureNP-C Sisi Saravia Work Phone: [facility] Work Phone: Start: 11-11-2023 End: 56-13-7205Dnngsfxkk department patient visitNP-C Sisi Saravia Work Phone: [facility]-Emergency Room Work Phone: Start: 10-31-2023 End: 04-97-9188blrcvjuaqiRF-C Sisi Saravia Work Phone: [facility] Work Phone: Start: 10-31-2023 End: 99-70-6416Pfsbadg encounter procedureNP-C Sisi Saravia Work Phone: [facility] Work Phone: Start: 07-63-4307Cgvdkjongm RecurringNP-C Sisi Saravia Work Phone: [facility]- CredibleStart: 32-05-0724Dmu-patient / Hpp-ciqugZE-H Sisi Saravia Work Phone: [facility] Work Phone: Start: 10-09-2023 End: 91-98-5537Hglhnzetv to same day surgery centerNP-C Sisi Saravia Work Phone: [facility]-Digestive Health Work Phone: Start: 10-09-2023 End: 34-66-5472bvgbjfsxwmJB-C Sisi Saravia Work Phone: [facility] Work Phone: Start: 29-44-2975Vfpawf flowsheetMariah Tattersall HVAC INSTALLER NOMS CI PTStart: 32-78-6045Vknicx flowsheetMariah Tattersall PTANOMS CI PTStart: 10-03-2023 End: 00-01-1870vcphyrojzlObmzjt Tattersall PTANOMS CI PTComment on above:Right cervical radiculopathy (Primary Dx); Cervical radiculopathyStart: 62-21-0198Kgnetofrm encounterAdriana White HVAC INSTALLER NOMS CI PTComment on above:re: PT today (She called noting not feeling well today and needs to cx; I reminded and she confirmed 10/03.)Start: 09-27-2023 Bamboo Jacquelin Lucas PT Work Phone: noms CI PTStart: 40-43-0950Monhrn Jacquelin Lucas PT Work Phone: noms CI PTStart: 09-27-2023 End: 79-84-7250zhndotzvhlQrapir J Evans PT Work Phone: noms CI PTComment on above:Cervical radiculopathy (Primary Dx); Right cervical radiculopathyStart: 10-22-2602Ayybkigheo RecurringIDALMIS Saravia Work Phone: [facility]- CredibleStart: 09-17-2023 End: 29-19-5158rjthacasknPvievw Zaky Other [facility] [employer] Other Start: 09-60-8934Uposla outpatient visit 25 minutes Jet Salinas Pain ManagementStart: 09-17-2023 End: 31-28-0586[place] encounter procedureIDALMIS Saravia Work Phone: [facility]-Start: 08-28-2023(PROC) PROCEDURESherif [facility] OutPtStart: 08-28-2023 End: 92-95-4349Ewyyyhnbh to same day surgery centerIDALMIS Saravia Work Phone: [facility]-Digestive Health Work Phone: Start: 08-28-2023 End: 02-92-0407qipytvynnqWJ-C Pamela Sue Cramer Work Phone: [facility] Work Phone: Start: 08-06-2023 End: 26-41-6158kaxjztwlzeHA-C iSsi Saravia Work Phone: [facility] Work Phone: Start: 08-06-2023 End: 60-17-0211Rexozhd encounter procedureNP-C Sisi Saravia Work Phone: [facility]-MRI Main [place] Work Phone: Start: 07-31-2023 End: 38-49-1365qsiceytxmeKflwov Zaky Other [employer] Other Start: 70-48-8628Enuvua outpatient visit 15 minutes Jet Barry Pain ManagementStart: 07-31-2023 End: 29-26-5123Blqzlnd encounter procedureNP-C Sisi Saravia Work Phone: [facility] Work Phone: Start: 07-24-2023(PROC) PROCEDURESherWhite [facility] OutPtStart: 07-24-2023 End: 22-57-2120ndqbcvdbwiCjvsdc Zaky Other [employer] Other Start: 07-24-2023 End: 49-03-4497Roftgbvkq to same day surgery centerNP-C Sisi Saravia Work Phone: [facility]-Digestive Health Work Phone: Start: 50-50-9253Koytqxukye RecurringNP-C Sisi Saravia Work Phone: [facility]-BH CredibleStart: 07-09-2023 End: 87-13-9534qiahxznfksGgjnim Zaky Other [employer] Other Start: 37-82-6357Ovqtez outpatient new 45 minutes Jetclemente BansalFPG Pain ManagementStart: 58-33-9106Gvmfrvvus encounterSherclemente BansalFPG Pain ManagementStart: 05-27-2023 End: 41-79-4112jkvvcqtmdaXrpdza Cundiff Other [employer] Other Start: 69-85-0552Sicuwu-up encounterHca [facility] ClinicStart: 94-31-2636Jokzqcsqup RecurringNP-C Sisi Rani Work Phone: [facility]-Weight Management Work Phone: Start: 04-17-2023 End: 50-51-9731wjmbqutyzbMsonqqyn Viridiana Other [employer] Other Start: 60-37-3214Ngonoaxgv encounterLawrence Viridiana [facility] GastroenterologyStart: 02-21-2023 End: 13-61-3498uyqlzqeavkFgyvfj Frantz Other [employer] Other Start: 21-66-3317Egnsut-up encounterBarrow Neurological Institute Care ClinicStart: 11-19-2022 End: 99-18-7372kyqmookrtpIkumkeut Viridiana Other [employer] Other Start: 97-60-8977Enhtfhhcz encounterLawrence Viridiana [facility] GastroenterologyStart: 11-13-2022 End: 08-02-0319uzcnynajweKrsuhopw Viridiana Other [employer] Other Start: 06-45-8826Yyyevvfmb encounterLawrence Viridiana [facility] GastroenterologyStart: 10-24-2022 End: 54-11-0028nurqffrmcuNgikte Felter Other [employer] Other Start: 83-61-7455Sycqfmihy encounterThomas FelterFPG Referral CoordinatorStart: 10-11-2022 End: 08-10-4223ljfzhpjryuLM-C Sisi Saravia Work Phone: [facility] Work Phone: Start: 10-11-2022 End: 78-59-0083Yisdtnc encounter procedureNP-C Sisi Saravia Work Phone: [facility]-Lab [address] Work Phone: Start: 10-10-2022 End: 94-59-4941yegwdartuhJaandoxw McCormack Other [employer] Other Start: 50-49-0704Fbbcjo outpatient new 45 minutes Fransisco JohnsonG GastroenterologyStart: 09-27-2022 End: 73-90-3558vsbycupshlEigsqc Armando II Other [employer] Other Start: 24-40-6118Lowziqchc encounterRobert Armando II [facility] [place] OrthopedicsStart: 09-06-2022([facility] WMNI) WMN Initial ProviderDawn [facility] Care ClinicStart: 09-06-2022 End: 80-32-8284eygxjttokyNkik Ronnit Other [employer] Other Start: 76-60-8820Kjtychwdgf RecurringNP-C Sisi Saravia Work Phone: [facility] Work Phone: Start: 08-08-2022 End: 31-36-9655gsbcgslltxFLDNQU CRAMERFacility:C7Skvir: 07-26-2022 End: 75-59-3856pptdjgavwwBqillx [facility] Other Start: 05-24-2897Pfjazf-up encounterNahid Landry [facility] ClinicStart: 07-18-2022 End: 51-55-2886jydamgknmhYvbqrh [facility] Other Start: 39-94-9207BJU [employer] 2-10 30MDawn [facility] ClinicStart: 78-38-3585Maroggawd encounterNahid LandryFirsthealth [facility] Coord[facility] Care ClinicStart: 21-12-8199Hwuetu outpatient visit 25 minutesPalore Saravia Work Phone: [phone]-[facility] [address] DO Work Phone: Start: 24-43-7663luiqqdiawvGrLeonel Henriquez Facility:[id number]: 06-28-2022 End: 00-78-3032xenmkfinvsOK CRYSTAL HOYFacility:P2Pmjja: 06-22-2022 End: 90-17-4907Ztbmxinthv and management of inpatientNP-C Sisi Saravia Work Phone: [facility] SurgStart: 06-22-2022 End: 53-34-8861gebpperwdsMbwew Keller Other [facility] Other Start: 36-93-8115Ggacyjx encounter procedureCarol AvilezFPG Urgent Care ClydeStart: 23-99-0305Jjubiaodub RecurringNP-C Sisi Saravia Work Phone: [facility]-Weight ManagementStart: 06-14-2022 End: 00-38-8904nzqdhtnadxCzxxei Cundiff Other [facility] Other Start: 90-23-3474Xrbxcj-up encounterNahid [facility] Coordinated Care ClinicStart: 05-10-2022 End: 24-40-5339Lsgfibn encounter procedureNP-C Sisi Saravia Work Phone: [facility]-Lab Strub RdStart: 55-39-9396Zczqgljqhb RecurringNP-C Sisi Saravia Work Phone: [facility]-Weight ManagementStart: 05-03-2022 End: 17-04-2241bivawsyfleAcxjex Cundiff Other noNubian [employer] Other Start: 30-74-3475Wjyalf-up encounterNahid [facility] Coordinated Care ClinicStart: 04-10-2022 End: 15-03-6477cnjumozsxqGmjipd Armando II Other noNubian [employer] Other Start: 47-77-6547Yopzet outpatient new 45 minutes Osvaldo Hennepin IIFPG [place] OrthopedicsStart: 04-10-2022 End: 72-96-7090Pzvwxbr encounter procedureNP-C Sisi Saravia Work Phone: [facility]-XRay [facility] Start: 03-30-2022 End: 79-85-4814bxfzdoxctkQlhw Fitt Other noNubian [employer] Other Start: 98-09-2246Noqaxlosd encounterDawn FitEastern Oregon Psychiatric Center Coordinated Care ClinicStart: 36-40-1320Llpohdvyvr RecurringNP-C Sisi Saravia Work Phone: [facility]-Weight ManagementStart: 03-22-2022 End: 89-57-2895wwtfwrcyveHghlgk Cundiff Other noNubian [employer] Other Start: 68-90-1965Nqcgwt-up encounterNahid [facility] Coord[facility] Care ClinicStart: 03-20-2022 End: 39-33-1669tazfdisrsmOlhvsvqeq Breault Other Nort [employer] Other Start: 20-28-3142Jbgmzp outpatient visit 15 minutes Nimco LawsonFPG Urgent Care ClydeStart: 02-06-2022 End: 88-80-8138embxzxrpfaUPENSC CRAMERFacility:A4Zvdsb: 01-30-2022 End: 15-85-0516ethalzamgzQhetjc Frantz Other [facility] Other Start: 72-26-3149Ndadrxbqf David Landry [facility] Coordinated Care ClinicStart: 91-10-4371Layfwq outpatient visit 25 minutesSisi Saravia Work Phone: [phone]-TnweuRidgeview [facility] 250 DO Work Phone: Start: 37-28-3089rxafmyqwpmXhmbulatoryDr. Noman Henriquez Facility:[id number]: 01-99-9314Enhzma consultation new/estab patient 60 min Sisi Saravia Work Phone: [phone]-BrbaxRidgeview Le [facility]ur [facility] 250 DO Work Phone: Start: 62-93-7071warfemqnwgTorftz Sue Dorothea Cramer Facility: Procedures DateProcedureProcedure DetailPerforming ClinicianStart: 12-23-2024 End: 60-93-9264Zjmzk ankle complete minimum 3 viewsMatthew Karen DEMPSEY Work Phone: Start: 84-94-5606Ul strs tst xers&/or rx cont ecg trcg Amreico Henriquez MD Work Phone: Start: 08-78-6313T-ray of left kneeNP-C Sisi Saravia Work Phone: Start: 58-49-9613D-ray of right kneeNP-C Sisi Saravia Work Phone: Start: 95-47-6744Otrmqtaamuagwo destruction of peripheral nerveNP-C Sisi Saravia Work Phone: [phone]: 70-83-8477Clwgs anesthetic nerve block in lower limbNP-C Sisi Saravia Work Phone: [phone]: 54-18-9674IF lumbar spine wo conNP-C Sisi Saravia Work Phone: [phone]: 36-19-6985Lqtut anesthetic nerve block in lower limbNP-C Sisi Saravia Work Phone: [phone]: 51-97-6221VE of thorax with contrastNP-C Sisi Saravia Work Phone: [phone]: 28-69-6276Kczfk chest X-rayNP-C Sisi Saravia Work Phone: [phone]: 95-03-2497Cnphag X-rayNP-C Sisi Saravia Work Phone: [phone] of hand, thumb or fingerPamela S Rani Work Phone: Arthroplasty of kneePamela S Rani Work Phone: [phone] of shoulderPamela S Rani Work Phone: [phone] sectionPamela S Rani Work Phone: [phone] S Rani Work Phone: [phone] of transfusion reactionNP-C Sisi Saravia Work Phone: [phone]: Highlighted row has not occurred!Total colonoscopyPamela S Rani Work Phone: Plan of Treatment DateCare ActivityDetailAuthorStart: 05-07-2025 End: 71-12-9880pigbhfudvmAUHQ [facility] Physical TherapyStart: 05-05-2025 End: 14-25-6538zbplotgqul84/17/2025 12:00 PM EDT Treatment [facility] [place] [facility] [address] [place] [place] [place] [address] Heaven Beck PTANOMS [place] Physical TherapyStart: 04-30-2025 End: 06-43-7314dxpwggbhbi10/12/2025 2:00 PM EDT Treatment [facility] [place] [facility] [address] [facility] [address] [place], [address] Heaven Beck PTA ArrivedNOMS [place] Physical TherapyComment on above:ArrivedStart: 04-29-2025 End: 38-77-8806sstivihclz90/11/2025 11:30 AM EDT Treatment [facility] [place] [facility] [address] [facility] [address] [place] [address] Nancy Russell PTANOMS [place] Physical TherapyStart: 04-26-2025 End: 99-65-8556tkyirtgken33/08/2025 11:00 AM EDT Treatment [facility] [place] [facility] [address] [facility] [address] [place] [address] Heaven Beck PTANOMS [place] Physical TherapyStart: 76-59-2685Urocjpkdc vaccination [facility] HealthcareStart: 04-12-2025 End: 67-01-5726Amgtohv encounter xchqkrfwo16/25/2025 1:20 PM EDT Office Visit ZUNILDA SCALES [address] [facility] [address] [place] [address] Brigitte Quiñonez NP [address] [place] [phone] ZUNILDA MONAEYStart: 01-06-2025 End: 77-45-5878Hjnovbm encounter procedureNOMS FH PODIATRYComment on above: ArrivedStart: 12-30-2024 End: 40-28-7798Cgnlrpk encounter procedureANA SANDUSKYComment on above:Arrived Start: 12-23-2024 End: 78-61-4017Sunlhhp encounter dcgfycbcz18/07/2025 10:30 AM EDT Office Visit [facility] [address] [place] [phone] Erika Orosco, PA [address] [facility] [address] [place] [address] Acute pain of left knee (Primary Dx)[facility] Comment on above:Acute pain of left knee (Primary Dx)Start: 08-06-2024 End: 06-26-6996Iphzdgp encounter rpatrpytt25/19/2024 3:10 PM EST Office Visit [address] [place] [address] Noman Henriquez MD [facility] [facility], [address] [place] [address] [facility]Start: 05-26-2024 End: 40-77-0793Ubdrwsp encounter koynaihqr56/08/2024 12:45 PM EDT Appointment [place] [address] [facility] [address] [place] [address] [facility]: 13-07-3677Blrbnpfmfl hospital visit by physician 05/26/2024 12:30 PM EDT Hospital Encounter [address] [place] [phone] [facility] CenterStmaquoketa: 04-19-2024 COVID-19 Vaccine ( season)COVID-19 Vaccine ( season) [facility]: 80-91-2105Ajyxvcqii vaccinationInfluenza Vaccine (#1)[facility]: 04-02-2024 End: 65-32-8386UJ Heart Perfusion W stress and W radionuclide IVNuclear Stress Test Cardiac Nuclear Medicine Routine Chest pain, unspecified type Expected: 04/02/2024 (Approximate), Expires: 04/02/2026[facility] Service Area Work Phone: Comment on above:Expected: 04/02/2024 (Approximate), Expires: 04/02/2026Start: 10-18-2023 End: 39-33-6428Meudjxp encounter /01/2024 10:45 AM EST Office Visit [facility] [address] [facility] [address] [place] [address] Erika Orosco PA [address] [place] [address] [place] [address] [facility]THOPAEDICSStart: 10-16-2023 End: 50-84-7127mywezhrjaa49/28/2024 12:00 PM EST Treatment [facility] [address] [facility] [address] [place] [address] Adriana White PTANOMS CI PTStart: 10-14-2023 End: 56-99-0265hhghscviav53/26/2024 12:30 PM EST Treatment [facility] [address] [facility] [address] [place] [address] Adriana White PTANOMS CI PTStart: 07-56-7000PsgqwpmwbMorrow County Hospitaltart: 10-07-2023 End: 39-72-1603xqnzuirrsy13/19/2024 12:30 PM EST Treatment [facility] [address] [facility] [address] [place] [address] Adriana White PTANOMS CI PTStart: 10-03-2023 End: 74-03-7940qrsxahaupcQBYH CI PTComment on above:ArrivedStart: 10-01-2023 End: 81-35-4863iblwwbahfp60/13/2024 12:00 PM EST Treatment [facility] [address] [facility] [address] [place] [address] Adriana White PTANOMS CI PTStart: 61-46-1413MtqvbhjglMorrow County Hospitaltart: 07-24-2023 [facility]: 03-91-9679YPXUV-19 Vaccine ()COVID-19 Vaccine ( season)[facility] Start: 35-53-9810UDL, Provider: Noman Henriquez, Status: Pen, Time: 2:50 PM FUV, Provider: Noman Henriquez, Status: Pen, Time: 2:50 PMMP-[facility] 250 DO Work Phone: Start: 31-70-5620YwbkunuvoUk Healthcare Start: 25-27-0014ZTN, Provider: Noman Henriquez, Status: Pen, Time: 2:30 PM FUV, Provider: Noman Henriquez, Status: Pen, Time: 2:30 PMMP-[facility] 250 DO Work Phone: Start: 36-44-4317QatyaefhzUk Healthcare Start: 89-04-5753Ilxdeulu to gastroenterologistUk Healthcare Start: 06-23-2022 End: 24-46-3126CnnzmyvvnMorrow County Hospitaltart: 43-02-4696Nftzrrnne culture of sputumMorrow County Hospitaltart: 29-64-3038Leltxpdr to Social ServicesMorrow County Hospitaltart: 66-91-8550Eklvepwh admissionMorrow County Hospitaltart: 90-30-3356AtwgizmykSelect [facility] Work Phone: Start: 53-54-3674JMC, Provider: Noman Henriquez, Status: Pen, Time: 3:20 PMFUV, Provider: Noman Henriquez, Status: Pen, Time: 3:20 PMMP-[facility] 250 DO Work Phone: Start: 32-49-2691QMO patients and/or patients aged 60+ years (1 - 1-dose 60+ series)RSV patients and/or patients aged 60+ years (1 - 1-dose 60+ series)[facility]HealthStmaquoketa: 34-83-6355Tjtcmo Vaccines (1 of 2)Zoster Vaccines (1 of 2)[facility]: 57-45-8188Zyvxxekor for malignant neoplasm of breastMammogram [facility] HealthcareStart: 68-99-9764Jqpjwpuaw for malignant neoplasm of cervixNOMS HealthcareStart: 56-65-7317DEvV/Tdap/Td Vaccines (1 - Tdap)DTaP/Tdap/Td Vaccines (1 - Tdap)[facility]: 16-34-7027Guplqikva for malignant neoplasm of cervixNOMS HealthcareStart: 67-59-3234Hnpwq screening for proteinDiabetes: Urine Protein ScreeningAdams County Hospital: 76-85-3534Oorfvhjx mellitus screeningDiabetes ScreeningUnSelect Medical Specialty [facility]: 40-35-5246Aemiafdgt C screeningHepatitis C ScreeningUnSelect Medical [facility]ty [facility]: 52-81-5469Teitwlza screeningDiabetes: Retinopathy ScreeningAdams County Hospital: 92-40-4814Qozshqnboggf Vaccine: Pediatrics (0 to 5 Years) and At-Risk Patients (6 to 64 Years) (1 of 2 - PCV) Pneumococcal Vaccine: Pediatrics (0 to 5 Years) and At-Risk Patients (6 to 64 Years) (1 of 2 - PCV)[facility]: 92-19-3678EXS Vaccines (1 of 1 - Standard series)MMR Vaccines (1 of 1 - Standard series) [facility]: 05-88-9598Swxkipxhfc A1c measurement Diabetes: Hemoglobin S2SUpsgqebcqmSelect Medical Specialty [facility]: 79-10-8926QCL screeningHIV ScreeningAdams County Hospital: 08-98-3058Joxwi panelLipid PanelAdams County Hospital: 1961Medicare Annual Wellness (AWV)Medicare Annual Wellness (AWV)[facility] HealthcareStart: 1961Medicare Annual Wellness VisitMedicare Annual Wellness Visit (AWV) [facility]: 77-91-3484Gfbhuwgtj for malignant neoplasm of colonNOMS HealthcareStart: 06-75-7598Hqkibky stimulating hormone measurementTSH LevelUnPaulding County HospitalAerobic microbial culture Aerobic CultureUk HealthcareAldolase measurementSelect Medical [facility] Work Phone: Blood culture for bacteria, including anaerobic screen Blood CultureUk HealthcareFluoroscopy of esophagusUk HealthcareHomogenous nuclear Ab pattern [Titer] in SerumSelect Medical Cleveland Clinic [facility] Work Phone: Insulin [Units/volume] in Serum or PlasmaUk Healthcare End: 84-59-8441SU Heart Perfusion W stress and W radionuclide [facility] Service Area Work Phone: Comment on above:Once for 1 Occurrences starting 05/25/2024 until 05/25/2024Nuclear Ab [Titer] in SerumSelect Medical [facility] Clinic [facility] Work Phone: Patient EducationSelect Medical [facility] Clinic [facility] Work Phone: Patient referralSelect Medical [facility] Work Phone: Radionuclide gastric emptying studyUk HealthcareThyrotropin [Units/volume] in Serum or PlasmaUk HealthcareThyroxine (T4) free index in Serum or Plasma by calculation Uk HealthcareThyroxine measurementUk HealthcareTriiodothyronine (T3) [Mass/volume] in Serum or PlasmaUk HealthcareTriiodothyronine resin uptake (T3RU) in Serum or PlasmaUk HealthcareXR Hip - right 3 ViewsXR hip right 2 or 3 views Imaging Routine Right hip pain 04/06/2024 2:15 PM [facility] Work Phone: [facility] Immunizations Immunization DateImmunizationNotesCare RbkotosbJtzxhjgw61-95-1488zlwaddmub, injectable, quadrivalent, preservative freeNP-C Sisi Saravia Work Phone: [facility]01-05-2024influenza virus vaccine, unspecified formulationNoman Henriquez MD Work Phone: [facility] Work Phone: [phone]-DffEZhen COVID-19 Vacc 30 MCG/0.3ML Intramuscular SuspensionPamela Farnaz Saravia Work Phone: [facility]03-22-2021Pfizer- BioNTech COVID-19 Vacc 30 MCG/0.3ML Intramuscular SuspensionPamela S Rani Work Phone: [facility]11-04-2020influenza, injectable, quadrivalent, preservative freePamela S Rani Work Phone: [phone] [place], [place] [address]2710-01-2020influenza, injectable, quadrivalent, preservative freePamela S Rani Work Phone: [phone] [place], [place] 7662711-19-2019influenza, injectable, quadrivalent, preservative freePamela S Rani Work Phone: [phone] [place], [place] 7662711-05-2018influenza, injectable, quadrivalent, preservative freePamela S Rani Work Phone: [phone] [place], [place] 7662710-30-2018Influenza, injectable, Madin Sharee Canine Kidney, preservative free, quadrivalentNP-C Sisi Arni Work Phone: [phone] [place], [place] 7662710-04-2016influenza, injectable, quadrivalent, preservative freePamela S Rani Work Phone: [phone] [place], [place] 7662712-07-2015influenza, seasonal, injectable, preservative freePamela S Rani Work Phone: [phone] [place] [address] Payers DatePayer CategoryPayerPolicy [id number] [id number] [id number]-dfg [id number] [id number] 1988Medicare [id number] 2.16.840.1.078828.3.57[id number] 2.16840.1.300786.3.57[id number] 2.16840.1.612921.3.57[id number] 2.16840.1.782936.3.579.2.86160-04-6415Kkgorgl3875110 2.16840.1.451058.3.57[id number] 2.840.1.648771.3.57[id number] 2.840.1.414253.3.57[id number] 2.0.1.135194.3.57[id number] 2.840.1.479348.3.579.2.109327-20-5208Fkavpjy90500231 2.0.1.079446.3.579.[id number] 2.0.1.852141.3.579.[id number] 2.0.1.565970.3.579.2.06[id number] 2.840.1.754238.3.579.2.690486-43-0570Rxuyihi11882210 2.840.1.913773.3.57[id number] 2.840.1.263484.3.579.2.804035-31-7055Yvjvtoo90971941 2.16.840.1.770265.3.579.2.922448-13-9256Hyvgnsx6466694 2.16.840.1.192186.3.579.2.953433-04-6703Qadfmql5215828 2.16.840.1.799579.3.579.2.136274-64-4360Yfvdehr7102750 2.16.840.1.682093.3.579.2.595992-04-2777Ntqlehh7108924 2.16.840.1.872570.3.579.2.827610-80-7853Nxwzvyp1324109 2.16.840.1.752731.3.579.2.993687-00-2451Yjhrbqe80654392 2..0.1.111479.3.579.2.727 [id number] 2..840.1.974957.19 MedicareMedicare [id number] UnknownUnknownHCAP/HFA/FAP [id number] UnknownHCAP/HFA/FAP [id number] [id number] 2.0.1.8[id number] 2.0.1.846755.3.579.2.531 Social History DateTypeDetailFacilityStart: 09-12-2023 End: 12-70-3632Gtptl caffeine consumptionDaily caffeine consumption-[facility]-[place] 250 DO Work Phone: Comment on above:4 CUPS OF COFFEE, GREEN TEA;1.5 TO PPD;Start: 09-12-2023 End: 54-84-0473Ogz Assigned At [facility]tart: 06-41-4464Gza Assigned At [facility] RegionalFeThe Surgical Hospital at Southwoodstart: 06-22-2022 End: 39-86-0584Ngngelb smoking status NHISSmoker (finding)[facility] Hospitaltart: 01-18-2023 End: 06-54-8791Syuuiya smoking status NHISSmokes tobacco dailyNOMS Healthcare History of tobacco useCigarette SmokerNOMS HealthcareHistory of tobacco use Passive smokerNOMS HealthcareStart: 01-18-2023 End: 13-98-8372Ixwqguv use and exposureSmokeless tobacco non-userNOMS Healthcare Start: 09-12-2023 End: 17-98-9700Vzklfdq intakeLifetime non-drinker (finding)[facility] HealthcareStart: 04-61-8189Ylz Assigned At [facility] RegionalNot on fileNOMS HealthcareStart: 03-23-2024 End: 04-96-5197Amjddhmg to SARS-CoV-2 (event)[facility] HospitalToconnecticut valley hospital smoking statusBluffton Hospital [facility] Start: 66-92-2622HkiIziuoj (finding)[facility] HospitalNEGATED: Highlighted rowUk Healthcare Goals DatePatient GoalDesired Activity/State Functional Status McqcQgupxqzhnuEiqqjvVxsbrhje33-00-1792Funnjvpdlz statusPatient at Baseline [facility] Work Phone: Mental Status BqsfOgeaufphzqWruhutWafkpqlc53-00-5638Aardfuhjg functionCognitive Status Patient at BaselineKettering Health [facility] Work Phone: Clinical Notes 01-30-2022 to 05-18-2025 Note Date & FdrgHlspZikcstgy61-91-7982 History of Present illness Narrative* Heaven Beck, HVAC INSTALLER - 05/18/2025 6:01 PM EDT Pt called and cancelled her last appointment due to falling on both knees and having pain. MD recommending her to put therapy on hold for 2 weeks. documented in this encounterFreeman Cancer InstituteMgaqduogap68-34-5568 History of Present illness Narrative* Leny Chacon, PT - 04/23/2025 11:00 AM EDT Images from the original note were [...] for a while. Was sent by neurologist ironsurfederica. Pt states neurosurgeon said she was not [...] minutes) Strength, Endurance, Flexibility, ROM, HEP, Neural Mobilization,Power, and Core Stability as needed. Pt performed and instructed in home program this date; writteninstructions and pictures issued with good pt understanding. [...] flexion based stretches. Instructed in home program andwill benefit from further PT. Outcome Measure: Back Index: 40/50 Rehab Diagnosis: low back pain, left LE pain and weakness, difficulty walking, decrease core and LEstrength Short Term Goal: To be met in 2 weeks Goal 1: Pt to be instructed in home exercise program. Cupola Operator Goals: To be met in 10 weeks [...] Please sign below. Date: documented in this encounterFreeman Cancer InstituteBkkagfbzbx44-53-4241 History of Present illness Narrative* Sp Wan, TONYM - 01/06/2025 9:15 AM EDT Images from the original note were not included. Subjective Patient ID: Aishwarya Hartman is a 64 y.o. female who presents for Foot Problem (64 yo SIMONIZER presents today for concerns of pain and swelling with left foot/ankle. Patient states she had xrays taken with Dr. Luis Miguel Orosco with ortho, and states they found spurs, and then was referred to our office. Patient also relates fallen arch with left foot. Patient states she is pre-diabetic. Patient also states thatshe may need orthotics, has had custom ones in the past but cannot find them. SS: 8.5-9). HPI This is a new patient who presents to our clinic via referral with concern of left foot, ankle painand swelling. She states that this has been [...] History: Diagnosis Date Asthma Bipolar 1 disorder (CMS/HCC) COPD (chronic obstructive pulmonary disease) ([facility]) Diabetes mellitus (CMS/HCC) Difficulty walking Fallen arches Gout Hypertension ([facility]/HCC) Ingrown toenail Onychomycosis Thyroid disease ([facility]) Verruca Medications Current Outpatient Medications: albuterol HFA 90 mcg/act inhaler, Inhale 2 puffs every 4 (four) hours if needed for wheezing, Disp:, Rfl: allopurinol (Zyloprim) 300 MG tablet, Take by mouth, Disp: , Rfl: b complex vitamins capsule, Take 1 capsule by mouth Daily, Disp: , Rfl: diclofenac (Voltaren) 75 MG EC tablet, Take 75 mg by mouth in the morning and 75 mg before bedtime.Do not crush, chew, or split., Disp: , [...] time each day at the same time, Disp:, Rfl: Trelegy Ellipta 100-62.5-25 MCG/ACT aerosol powder , Inhale 1 puff in the morning., Disp: , Rfl: triamcinolone (Kenalog) 0.1 % cream, Apply 1 application topically in the morning and 1 applicationbefore bedtime., Disp: , Rfl: ziprasidone (Geodon) 20 MG capsule, Take 20 mg by mouth, Disp: , Rfl: predniSONE (Deltasone) 10 MG tablet, Take twice daily for 5 days, then take once daily for 5 days.,Disp: 15 tablet, Rfl: 0 Allergies Amoxicillin, Lisinopril, and Talc Past Surgical History Past Surgical History: Procedure Laterality Date FINGER AMPUTATION Left LT MF DISTAL AMPUTATION PARTIAL HYSTERECTOMY TOENAIL EXCISION TOTAL KNEE ARTHROPLASTY Right 2017 RT TKA- DR LUNDBERG Family History Family History Problem Relation Name Age of Onset Parkinsonism Mother Coronary artery disease Father Diabetes Maternal Grandfather Autumn samples Diabetes Sister Judith Objective Physical Exam [...] of the left foot and ankle from [facility] reveal no acute fractures or dislocations. These are nonweightbearing however there appears to be significant degenerative changes of the tibiotalar joint with subchondral cystic changes as well as eccentric joint space narrowing medially. Avulsion fragment off of the medial malleolus potentially from prior injury. Large enthesophyte atthe insertion of the plantar fascia. Potential degenerative [...] polyneuropathy, with long-term current use of insulin ([facility]) E08.42 Z79.4 Patient was examined and evaluated. I personally reviewed 3 radiographs of the left foot and 3 radiographs of the left ankle from [facility] and discussed my findings. 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 Causes and treatment options were discussed in detail. At this time I am recommending a home exercise program focusing on gastroc soleal contractureand periarticular ankle strengthening exercises. Program was printed off and given to the patient. Complete daily as instructed. I have recommended orthotic therapy to help control the foot structureand reduced valgus stresses across the midfoot. Patient was dispensed power step orthotics today. Ihave recommended an ASO brace for stabilization and limitation of motion of the ankle and rearfoot.Patient agreed and was fitted for the appropriate [...] understanding. Sp Wan DPM documented in this encounterFreeman Cancer InstituteNwbfyfukqv77-53-1575 History of Present illness Narrative* Ashley Yuong DO - 12/30/2024 2:30 PM EDT Images from the original note were not included. Chief complaint: Low back pain Subjective Aishwarya Hartman, 64 y.o., female Patient present today for a neurologic consult at the request of Sisi Saravia CNP for sciatica. Patient states she has been having lower back pain which will radiate down her left leg. This has beengoing on for about a year. This is intermittent. She states standing for longer than 10 minutes or sitting for long for longer than 20 minutes make this worse. Patient ambulates with a walker. She states she uses this for some imbalance. She denies any falls. She admits weakness and fatigue in BLE.She takes Diclofenac 75 mg BID. For arthritis [...] , wrist extensors , wrist flexor , ophthalmology surgical technician strength 5/5. LUE Strength deltoid , biceps , triceps , wrist extensors , wrist flexor , ophthalmology surgical technician strength 5/5. RLE Strength illopsoas, quadriceps, tibialis [...] reflex 2+ . Nolen's sign negative. Coordination: Madcnu-ih-njeq testing and rapid alternating movements are normal [...] at multiple levels with multilevel foraminal narrowing. Itseem that the stenosis was worse at L3/4 and L4/5. She has trialed injection therapy with pain management, Dr. Bansal. She stated these injections were helpful. She was advised she could pursue ablation. She is very fearful of this and refuses to do ablation due to substantial pain she encounter whengetting ablation of her knee done. Her examination [...] physical therapy to start and may consider surgicalreferral thereafter. Pt has been fully educated on their diagnosis, lab results, treatment options, follow up plan, and return instructions documented in this encounterFreeman Cancer [id number] History of Present illness Narrative* KE Del Cid - 12/23/2024 10:30 AM EDT Images from the original note were [...] slight crepitus with anterior drawer and talar tiltwithout increase in pain, diffuse tenderness across the [...] considered; however, recent events at home may haveexacerbated the ankle arthritis. Due to the present edema, ASO application will be withheld as long-term bracing options may be needed given the advanced arthritic changes. Ice and elevation will be t he focus. Contact with the deputy k 9 for ongoing nail care and to discuss long- term treatment options for ankle arthritis is recommended. Social status: Currently safe at home as her daughter, who suffers from mental health illness, has been placed in police custody. She does not intend to have her daughter home again due to her mental health historyand has filed a protection order. Expresses gratitude [...] requiring urgent evaluation. Visit was preformed using [employer] repair cobbler speech recognition. documented in this encounterFreeman Cancer [id number] History of Present illness Narrative* KE Del Cid - 04/06/2024 2:00 PM EDT Images from the original note [...] LOCATED IN HER LOWER (R) BUTTOCK ; DENIESANY RADIATING PAIN, NO N/T. NOTED LIMITED ROM [...] own.. recommend smoking cessation and cont weight loss( healthy) pt will call if symptoms persist or worsen.. Questions answered in laymen terms at the bedside. The diagnosis, home exercise plan and any ongoing restrictions/ recommendations reviewed. If unable to be reached in office, I recommend evaluation at nearest Emergency Room if any symptoms worsened or new symptoms develop for requiring urgent evaluation. documented in this encounterFreeman Cancer [id number] History of Present illness Narrative* Noman Henriquez MD - 04/02/2024 2:40 PM EDT Victor Manuel Hartman is a 64 y.o. female Chief Complaint Follow-up HPI Patient is here for follow-up to address recent complaint of increasing chest pain. She has not been seen in a few years. I have seen her in the past for similar issues and remote stress test was negative. Patient describe mainly nocturnal chest pain. She describes some dyspepsia. She admit to verylimited exercise tolerance due to arthritis. She continues [...] content normal. Judgment: Judgment normal. Allergies Gabapentin, Benld, Lyrica [pregabalin], and Doxycycline Current Medications Current [...] (25 mg) by mouth once daily., Disp: ,Rfl: irbesartan (Avapro) 150 mg tablet, Take 1 [...] daily at bedtime., Disp: , Rfl: omega 2-afi-sgf-fish oil (Fish OiL) 1,200 (144-216) mg capsule, Take 1 capsule (1,200 mg) by mouth early in the morning.., Disp: , Rfl: omeprazole (PriLOSEC) [address] capsule, Take 1 capsule (40 mg) by mouth 2 times a day., Disp: , Rfl: traZODone (Desyrel) 50 mg tablet, TAKE 2 TABLETS BY MOUTH EVERY DAY AT BEDTIME NEEDED FOR SLEEP,Disp: , Rfl: Trelegy Ellipta 100-62.5-25 mcg blister [...] by mouth once daily at bedtime., Disp: ,Rfl: Assessment/Plan 1. Chest pain, unspecified type Follow Up In Cardiology Nuclear Stress Test 2. Essential hypertension 3. Hyperlipidemia, unspecified hyperlipidemia type 4. Sleep apnea, unspecified type 5. Chronic obstructive pulmonary disease, unspecified COPD type (Multi) 6. Diabetes mellitus type II, non insulin dependent (Multi) 7. Palpitations 8. BMI 45.0-49.9, adult (Multi) 9. Current smoker Scribe Attestation By signing my name below, ICecilia RN , Scribe attest that this documentation has been prepared under the direction and in the presence of MD Letty. Provider Attestation - Scribe documentation All medical record entries made by the Scribe were at my direction and personally dictated by me. Ihave reviewed the chart and agree that the record accurately reflects my personal performance of the history, physical exam, discussion and plan. documented in this [facility] Work Phone: 1(591) 788-478808-15-2024 Instructions* Patient Instructions* Cecilia Mata RN - 04/02/2024 2:40 PM [...] for 6 weeks . documented in this [facility] Work Phone: 1(103) 481-248901-30-2024 Evaluation note* Encounter Date Diagnosis Assessment Notes Treatment Notes Treatment Clinical Notes Aug, Primary localized os teoarthrosis of the knee, left (ICD-10 - M17.12) 63 year old female here for follow up status post left superior medial, superior lateral and inferior medial genicular nerve blocks under fluoroscopic guidance. Patient reports 70-80% pain relief for4-6 hours following the procedure. She voices continued complaints of pain to the left knee today, as expected. I recommend proceeding with a left genicular RFA. Risks and benefits of procedure explained to patient; patient verbalizes understanding. Aug,Other chronic pain (ICD-10 - G89.29) Continue with current treatment plan. Aug,Left knee pain (ICD-10 - M25.562) Proceed with treatment plan and follow up after procedure. [facility] Other 01-10-2024 [facility] Evaluation note* Encounter Date Diagnosis Assessment Notes Treatment Notes Treatment Clinical Notes Jul, Primary localized os teoarthrosis of the knee, left (ICD-10 - M17.12) 63 year old female here for follow up status post left superior medial, superior lateral and inferior medial genicular nerve blocks under fluoroscopic guidance. Patient reports 75-80% pain relief for1 day following procedure. She voices continued complaints of left knee pain today as expected. Different treatment options were discussed in detail with the patient and I recommed we proceed with a confirmatory left genicular nerve block under fluoroscopic guidance. Risks and benefits of procedureexplained to patient; patient verbalizes understanding. Jul,Sacroiliitis (ICD-10 - M46.1) If her pain persists or worsens, we can consider sacroiliac joint injections in the future. Jul,Other chronic pain (ICD-10 - G89.29) Continue with current treatment plan. [facility] Other 11-21-2023 Evaluation note* Encounter Date Diagnosis Assessment Notes Treatment Notes Treatment Clinical Notes Jun, Low back pain, unspe cified back pain laterality, unspecified chronicity, unspecified whether [...] lumbar spine to further evaluate her pain. Jun,rimary localized osteoarthrosis of the knee, left (ICD-10 [...] procedure explained to patient; patient verbalizes understanding. Jun,Sacroiliitis (ICD-10 - M46.1) If her pain persists or worsens, we can consider sacroiliac joint injections in the future. Jun,ain, joint, knee, left (ICD-10 - M25.562) Patient states she has had many steroid injections to the left knee in the past as well as visco gel injections with minimal relief. If her pain persists or worsens, we can consider proceeding with agenicular nerve NB followed by RFA in the future, if applicable. In the meantime, she is encouragedto proceed with updated imaging of the left knee to further evaluate her pain. Jun,Other chronic pain (ICD-10 - G89.29) Continue with current treatment plan. Jun,OtherMedical decision making shows a new problem to me with further workup planned or suggested with thepotential for extensive treatment options that were considered with the most applicable given this patient's situation as noted above. Treatment options considered include a combination of physical th erapy approaches, pharmacologic management, and interventional procedures. Those most applicable tothe patient were discussed at this time. Risk [...] prolonged functional impairment requiring constant patient reassessment andhigh-level medical decision making. The amount and complexity of data reviewed is high given that patient labs, radiology reports, and other test were obtained, reviewed and summarized as applicable from the physician portal and/or outside medical records. Pertinent positive and negative findings were considered in medical decision-making. [facility] Other 10-09-2023 Evaluation note* Encounter Date Diagnosis Assessment Notes Treatment Notes Treatment Clinical Notes May, Type 2 diabetes sanjay itus with unspecified complications (ICD-10 - E11.8) May,MI 50.0-59.9, adult (ICD-10 - Z68.43) May,onstipation (ICD-10 - K59.00) May,Hypoglycemia (ICD-10 - E16.2) May,Hypertension (ICD-10 - I10) May,nee osteoarthritis (ICD-10 - M17.9) May,Obstructive sleep apnea (ICD-10 - G47.33) May,Mixed hyperlipidemia (ICD-10 - E78.2) May,Metabolic syndrome X (ICD-10 - E88.81) May,Hypothyroidism (ICD-10 - E03.9) May,OPD (chronic obstructive pulmonary disease) (ICD-10 - J44.9) [facility] Other 07-06-2023 Evaluation note* Encounter Date Diagnosis Assessment Notes Treatment Notes Treatment Clinical Notes Feb, Type 2 diabetes sanjay itus with unspecified complications (ICD-10 - E11.8) Feb,MI 50.0-59.9, adult (ICD-10 - Z68.43) Feb,onstipation (ICD-10 - K59.00) Feb,Hypoglycemia (ICD-10 - E16.2) Feb,Hypertension (ICD-10 - I10) Feb,nee osteoarthritis (ICD-10 - M17.9) Feb,Obstructive sleep apnea (ICD-10 - G47.33) Feb,Mixed hyperlipidemia (ICD-10 - E78.2) Feb,Metabolic syndrome X (ICD-10 - E88.81) Feb,Hypothyroidism (ICD-10 - E03.9) Feb,OPD (chronic obstructive pulmonary disease) (ICD-10 - J44.9) [facility] Other 02-22-2023 Evaluation note* Encounter Date Diagnosis Assessment Notes Treatment Notes Treatment Clinical Notes Sep, Dysphagia (ICD-10 - R13.10) Sep,Vomiting (ICD-10 - R11.10) Sep,cid reflux (ICD-10 - K21.9) [facility] Other 02-09-2023 Evaluation note* Encounter Date Diagnosis Assessment Notes Treatment Notes Treatment Clinical Notes Sep, Osteoarthritis of le ft knee, unspecified osteoarthritis type (ICD- 10 - M17.12) [facility] Other 01-19-2023 Evaluation note* Encounter Date Diagnosis Assessment Notes Treatment Notes Treatment Clinical Notes Aug, Obesity (ICD-10 - E66.9) Aug,MI 50.0-59.9, adult (ICD-10 - Z68.43) Aug,OtherSummary of Visit: (A) reviewed meal timing and reasons to avoid meal skipping. Discussed meal / snack ideas (B) discussed benefits of physical activity and ideas for continuing and overcoming barriers (C) reviewed plate method and discussed ways to create balance for common meals (D) encouraged choosing smaller portions of chocolate or desserts and pairing with a nutrient densefood Patient set the following goals: NEW: start pool aerobics class next week [facility] Other 12-08-2022 Evaluation note* Encounter Date Diagnosis Assessment Notes Treatment Notes Treatment Clinical Notes Jul, Type 2 diabetes sanjay itus with unspecified complications (ICD-10 - E11.8) Jul,MI 50.0-59.9, adult (ICD-10 - Z68.43) Jul,onstipation (ICD-10 - K59.00) Jul,Hypoglycemia (ICD-10 - E16.2) Jul,Hypertension (ICD-10 - I10) Jul,Knee osteoarthritis (ICD-10 - M17.9) Jul,bstructive sleep apnea (ICD-10 - G47.33) Jul,Mixed hyperlipidemia (ICD-10 - E78.2) Jul,Metabolic syndrome X (ICD-10 - E88.81) Jul,Hypothyroidism (ICD-10 - E03.9) Jul,OPD (chronic obstructive pulmonary disease) (ICD-10 - J44.9) [facility] Other 11-30-2022 Evaluation note* Encounter Date Diagnosis Assessment Notes Treatment Notes Treatment Clinical Notes Jun, Obesity, unspecified classification, unspecified obesity type, unspecified whether serious comorbidity present (ICD-10 - E66.9) Jun,MI 50.0-59.9, adult (ICD-10 - Z68.43) Jun,therSummary of Visit: (A) Presentation of Plate Method discussed (B) Sample meal ideas reviewed (C) exercise recommendations reviewed Patient set the following goals: - patient set personal goal using given handout. [facility] Other 11-05-2022 Progress note Author Piper Tate [facility] June 23, 2022 1:23pmNote Date/TimeNov2021 1:23pmMichele Ville [id number] Hospitalist Progress Note Signed Patient: Aishwarya Hartman MR#: [id number] : 1960 Acct:[id number] Age/Sex: 62 / F Adm Date: 2 Loc: Room: [address] [place] [address] Type: ADM IN Attending Dr: Piper Tate [...] spray 06/23/22 09:00 06/23/22 08:51 Fluticasone Propionate [place] 120 [place]/16 Gm Bottle INTRANASAL 06/23/23 08:59 2 spray [...] 250 mls/hr 06/23/22 18:00 Zithromax IV Q24H VELASQUEZ Potassium Chloride/Sodium Chloride 1,000 mls @ 75 mls/hr 06/22/22 17:30 06/23/22 08:51 0.9 % Nacl-20 Meq Kcl IV 06/22/23 17:29 75 mls/hr .[id number] VELASQUEZ Administration Levothyroxine Sodium 150 mcg 06/23/22 [...] Ziprasidone 80 Mg Capsule PO 06/23/23 21:59 [facility] A&P - Hospitalist Assessment/Plan (1) Pneumonia: (2) [...] poor appetite to suspect malignancy. Documented By: Piepr Tate MD 06/23/221320 Signed By: <Electronically signed by Piper Tate MD> 06/23/22 1323 [facility] Work Phone: 1(216) 379-716411-05-2022 History and physical note Author Piper Tate [facility] June 23, 2022 1:21pmNote Date/TimeNov2021 5:27pmV[place] [address] Hospitalist H&P Signed Patient: Aishwarya Hartman MR#: [id number] : 1960 Acct:[id number] Age/Sex: 62 / F Adm Date: 2 Loc: Room: [address] [place] [address] Type: ADM IN Attending Dr: Piper Tate MD Copies to: Sisi Saravia, NEHAL Tate MD~ HPI DATE OF EXAMINATION: 06/22/22 [...] WBC Count 16.5 x10E3/uL (4.5-11.0) H 06/22/22 15:27 RBC 4.70 x10E6/uL (3.60-5.00) 06/22/22 15:27 Hgb 13.9 g/dL (11.8-15.4) 06/22/22 15:27 Hct 42.4 % (34.0-46.4) 06/22/22 15:27 MCV 90.2 fl (80-100) 06/22/22 15:27 MCH 29.5 pg (24.7-34.3) 06/22/22 15:27 MCHC 32.7 g/dL (32.0-35.0) 06/22/22 15:27 RDW 14.4 % (11.9-15.3) 06/22/22 15:27 Plt Count 193 x10E3/uL (150-450) 06/22/22 15: MPV 9.6 fl (6.3-10.7) 06/22/22 15:27 Neut % (Auto) 88.9 % (.) 06/22/22 15:27 Lymph % (Auto) 4.1 % (.) 06/22/22 15:27 [place] % (Auto) 6.7 % (.) 06/22/22 15: Eos % (Auto) 0.1 % (.) 06/22/22 15:27 Baso % (Auto) 0.2 % (.) 06/22/22 15: Neut # (Auto) 14.7 x10E3/uL (1.8-7.7) H 06/22/22 15: Lymph # (Auto) 0.7 x10E3/uL (1.00-4.8) L 06/22/22 15: [place] # (Auto) 1.1 x10E3/uL (0.0-0.8) H 06/22/22 15: Eos # (Auto) 0.0 x10E3/uL (0.0-0.45) 06/22/22 15:27 Baso # (Auto) 0.0 x10E3/uL (0.0-0.2) 06/22/22 15: Nucleated RBC % (auto) 0.1 % (0-0.5) 06/22/22 15: PHA Creatinine Clear 52.28 06/22/22 15: Sodium 125 mmol/L (136-146) L 06/22/22 15: Potassium 3.6 mmol/L (3.5-5.1) 06/22/22 15: Chloride 90 mmol/L (95-114) L 06/22/22 15: Carbon Dioxide 22.6 mmol/L (22.0-30.0) 06/22/22 15: Anion Gap 16.0 mEq/L (6.0-15.0) H 06/22/22 15:27 BUN 24 mg/dL (9-23) H 06/22/22 15: Creatinine 1.28 mg/dL (0.44-1.03) H 06/22/22 15: Est GFR ( Amer) 51 mL/Min 06/22/22 15:27 Est GFR (Non-Af Amer) 42 mL/Min 06/22/22 15:27 Glucose 112 mg/dL (70-100) H 06/22/22 15:27 Lactic Acid 2.0 mmol/L (0.5-2.2) H* 06/22/22 15:27 Calcium 9.6 mg/dL (8.2-10.2) 06/22/22 15:27 Total Bilirubin 1.3 mg/dL (0.3-1.2) H 06/22/22 15:27 AST 17 U/L (10-42) 06/22/22 15:27 ALT 33 U/L (10-60) 06/22/22 15:27 Alkaline [...] signed by Piper Tate MD> 06/23/22 1321 [facility] Work Phone: 1(874) 636-371210-27-2022 Evaluation note* Encounter Date Diagnosis Assessment Notes Treatment Notes Treatment Clinical Notes May, Type 2 diabetes sanjay itus with unspecified complications (ICD-10 - E11.8) May,MI 50.0-59.9, adult (ICD-10 - Z68.43) May,onstipation (ICD-10 - K59.00) May,Hypoglycemia (ICD-10 - E16.2) May,Hypertension (ICD-10 - I10) May,Knee osteoarthritis (ICD-10 - M17.9) May,bstructive sleep apnea (ICD-10 - G47.33) May,Mixed hyperlipidemia (ICD-10 - E78.2) May,Metabolic syndrome X (ICD-10 - E88.81) May,Hypothyroidism (ICD-10 - E03.9) May,OPD (chronic obstructive pulmonary disease) (ICD-10 - J44.9) [facility] Other 09-15-2022 Evaluation note* Encounter Date Diagnosis Assessment Notes Treatment Notes Treatment Clinical Notes Apr, Type 2 diabetes sanjay itus with unspecified complications (ICD-10 - E11.8) Apr,2BMI 50.0-59.9, adult (ICD-10 - Z68.43) Apr,onstipation (ICD-10 - K59.00) Apr,Hypertension (ICD-10 - I10) Apr,Knee osteoarthritis (ICD-10 - M17.9) Apr,bstructive sleep apnea (ICD-10 - G47.33) Apr,Mixed hyperlipidemia (ICD-10 - E78.2) Apr,Metabolic syndrome X (ICD-10 - E88.81) 15 Sep, 2022Hypothyroidism (ICD-10 - E03.9) Apr,2COPD (chronic obstructive pulmonary disease) (ICD-10 - J44.9) [facility] Other 08-23-2022 Evaluation note* Encounter Date Diagnosis Assessment Notes Treatment Notes Treatment Clinical Notes Mar, History of total right knee repl acement (ICD-10 - Z96.651) Mar,rimary osteoarthritis of left knee (ICD-10 - M17.12) Mar,therI had a long discussion with the patient regarding her imaging findings and etiology of her right knee pain. I explained to her that her x-ray findings are suspicious for loosening of her femoral andtibial components. However her bone scan in May 2021 does not demonstrate any significant increased uptake that would be concerning for loosening. Furthermore, she is been doing perfectly fine with her knee and not having any issues other than some twinges a few times a week. I explained to thepatient that overall I think she is doing well with her right knee. At this time I would not recommend any surgical intervention or any further diagnostic testing. In regards to the left knee, I do not have any x-rays today to further evaluate it but she is underthe care of Dr. Hopkins at this time [...] if she wants to explore any further treatmentwith the left knee. I also explained to her that if the right knee begins to bother her more frequently that she can give me a call in the future and we can look into it further. [facility] Other 08-04-2022 Evaluation note* Encounter Date Diagnosis Assessment Notes Treatment Notes Treatment Clinical Notes Mar, Type 2 diabetes sanjay itus with unspecified complications (ICD-10 - E11.8) Mar,MI 50.0-59.9, adult (ICD-10 - Z68.43) Mar,bstructive sleep apnea (ICD-10 - G47.33) Mar,Hypertension (ICD-10 - I10) Mar,Mixed hyperlipidemia (ICD-10 - E78.2) Mar,OPD (chronic obstructive pulmonary disease) (ICD-10 - J44.9) Mar,Hypothyroidism (ICD-10 - E03.9) Mar,Metabolic syndrome X (ICD-10 - E88.81) [facility] Other 08-02-2022 Evaluation note* Encounter Date Diagnosis Assessment Notes Treatment Notes Treatment Clinical Notes Mar, Bilateral acute otitis media (IC D-10 - H66.93) Ear infections are often a secondary infection caused from an URI, the flu or allergies. Take medication as directed. Complete all doses, even if you feel better. Tylenol or ibuprofen can help with pain. Warm pack to area for comfort helps as well. Follow up with primary care provider if no improvement of symptoms. [facility] Other 06-14-2022 Evaluation note* Encounter Date Diagnosis Assessment Notes Treatment Notes Treatment Clinical Notes Jan, Abnormal weight gain (ICD-10 - R 63.5) Jan,Type 2 diabetes mellitus with unspecified complications (ICD-10 - E11.8) Jan,bstructive sleep apnea (ICD-10 - G47.33) Jan,Hypertension (ICD-10 - I10) Jan,Mixed hyperlipidemia (ICD-10 - E78.2) 14 Jan,2COPD (chronic obstructive pulmonary disease) (ICD-10 - J44.9) 14 Jan, 2022Hypothyroidism (ICD-10 - E03.9) Jan,Metabolic syndrome X (ICD-10 - E88.81) [facility] Other chief complaint+Reason for visit Narrative* Chief Complaint Knee Pain Follow Up After Left Gnb Knee Pain Knee Pain follow up after procedureReason for VisitLumbar degenerative disc disease Other chronic pain Primary osteoarthritis of left knee [facility] Work Phone: Chieu complaint+Reason for visit Narrative* Chief Complaint Knee Pain Follow Up After Left Gnb Knee Pain Knee Pain follow up after procedure lower back pain, L leg painReason for VisitLumbar degenerative disc disease Other chronic pain Primary osteoarthritis of left knee [facility] Work Phone: chief complaint+Reason for visit Narrative* Chief Complaint Knee Pain Follow Up After Left Gnb BH Knee Pain Knee Pain follow up after procedure lower back pain, L leg painReason for VisitLumbar degenerative disc disease Other chronic pain Primary osteoarthritis of left knee [facility] Work Phone: chief complaint+Reason for visit Narrative* Chief Complaint Follow Up After Left Gnb BH Knee Pain Knee Pain follow up after procedure lower back pain, L leg pain 6 week after rfa,knee painReason for VisitLumbar degenerative disc disease Other chronic pain Primary osteoarthritis of left knee Lumbar degenerative disc disease Lumbosacral spondylosis without myelopathy Other chronic pain Primary osteoarthritis of left knee Sacroiliitis [facility] Work Phone: chief complaint+Reason for visit Narrative* Chief Complaint BH follow up after procedure lower back pain, L leg pain 6 week after rfa,knee pain Z96.651 - Presence of right artificial knee jointReason for VisitLumbar degenerative disc disease Other chronic pain Primary osteoarthritis of left knee Lumbar degenerative disc disease Lumbosacral spondylosis without myelopathy Other chronic pain Primary osteoarthritis of left knee Sacroiliitis [facility] Work Phone: chief complaint+Reason for visit Narrative* Chief Complaint follow up after proc edure lower back pain, L leg pain 6 week after rfa,knee pain Z96.651 - Presence of right artificial knee joint BH M17.12 - Unilateral primary osteoarthritis, left k OP SP RTKA PAINReason for VisitLumbar degenerative disc disease Other chronic pain Primary osteoarthritis of left knee Lumbar degenerative disc disease Lumbosacral spondylosis without myelopathy Other chronic pain Primary osteoarthritis of left knee Sacroiliitis History of total right knee replacement Primary osteoarthritis of left knee [facility] Work Phone: Discharge summary Author Piper Tate [facility] June 24, 2022 4:58pmNote Date/TimeNov2021 4:58pmV[place] [address] Discharge Summary Signed Patient: Aishwarya Hartman MR#: [id number] : 1960 Acct:[id number] Age/Sex: 62 / F Adm Date: 2 Loc: Room: [address] [place] [address]: Piper Tate MD Copies to: Sisi Saravia, PROTOCOL MANAGER Piper Tate MD~ Providers Date of Discharge: 06/24/22 [...] any oxygen. She was feeling significantly better. Hershortness of breath almost completely resolved, she still [...] whenshe drinks through the straw. She denied anychoking sensation with solid food. Sounds more like [...] verbal instructions. The recommendations were made to follow- up as outpatient within one week.The patient was informed if his symptoms get worse to go backto emergency room or call his primary care [...] H, RBC 3.92, Hgb 11.7 L, Hct 35.7,MCV 91.0, MCH 29.7, MCHC 32.7, RDW 14.5, Plt Count 219, MPV 9.7, Neut % (Auto) N/A, Lymph % (Auto) N/A, [place] % (Auto) N/A, Eos % (Auto) N/A, Baso % (Auto) N/A, Neut # (Auto) N/A, Lymph # (Auto) N/A, [place] # (Auto) N/A, Eos # (Auto) N/A, Baso # (Auto) N/A, Nucleated RBC % (auto) 0.0, Band Neutrophils% 10 H, Lymphocytes % 8 L, Myelocytes [...] days. ) Documented By: Piper Tate MD 06/24/221653 Signed By: <Electronically signed by Piper Tate MD> 06/24/22 1658 [facility] Work Phone: Evaluation + Plan note No data available for this section [facility] Evaluation noteNo InformationNortFatsoma Other Evaluation noteNo assessment information available [facility] [facility] Work Phone: Evaluation note* Diagnosis Onset Date Resolution Status Acute hyponatremia acuteAKI (acute kidney injury)acutePneumoniaacuteSepsisacute [facility] Work Phone: Evaluation note* Diagnosis Cervical radiculopathy- Primary Brachial neuritis or radiculitis nos Right cervical radiculopathy [facility] Diagnosis Right cervical radiculopathy- Primary Cervical radiculopathy Brachial neuritis or radiculitis nos documented [facility]* Diagnosis Onset Date Resolution Status Lumbar degenerative disc disease acuteOther chronic painacutePrimary osteoarthritis of left kneeacute [facility] Work Phone: Evaluation note* Diagnosis Onset Date Resolution Status Lumbar degenerative disc disease acuteOther chronic painacutePrimary osteoarthritis of left kneeacuteLumbar degenerative disc diseaseacuteLumbosacral spondylosis without myelopathyacute Other chronic painacutePrimary osteoarthritis of left kneeacuteSacroiliitisacute [facility] Work Phone: Evaluation note* Diagnosis Onset Date Resolution Status Lumbar degenerative disc disease acuteOther chronic painacutePrimary osteoarthritis of left kneeacuteLumbar degenerative disc diseaseacuteLumbosacral spondylosis without myelopathyacute Other chronic painacutePrimary osteoarthritis of left kneeacuteSacroiliitisacute History of total right knee replacementacutePrimary osteoarthritis of left knee acute [facility] Work Phone: Evaluation note* Diagnosis Onset Date Resolution Status History of total right knee replacement acutePrimary osteoarthritis of left kneeacute [facility] Work Phone: Evaluation note* Diagnosis Chest pain, unspecified type documented in this encounter [facility] Work Phone: Evaluation note* Diagnosis Onset Date Resolution Status Dysphagia acuteGastroparesisacuteGERD (gastroesophageal reflux disease)acuteIrritable bowel syndrome with constipationacute [facility] Work Phone: Evaluation note* Diagnosis Chest [...] (Multi) Current smoker documented in this encounter [facility] Work Phone: Evaluation note* Diagnosis Right hip pain- Primary Pain in joint, pelvic region and thigh Piriformis syndrome, right documented in this encounter [facility]Evaluation [facility]* Diagnosis Acute left ankle pain- Primary Left foot pain Pain in soft tissues of limb Arthritis of left ankle Bilateral leg edema Edema documented in [facility]* Diagnosis Degeneration of intervertebral disc of lumbar region with discogenic back pain and lower extremity pain- Primary documented in this encounter [facility] HealthcareEvaluation note* Diagnosis Primary osteoarthritis of left ankle- Primary Valgus deformity, not elsewhere classified, left ankle Instability of left ankle joint Difficulty walking Difficulty in walking Diabetes mellitus due to underlying condition with diabetic polyneuropathy, with long-term current use of insulin ([facility]) documented in this encounter [facility] HealthcareEvaluation note* Diagnosis Spondylosis without myelopathy or radiculopathy, lumbosacral region- Primary documented in this encounter [facility] HealthcareEvaluation note* Diagnosis Spondylosis without myelopathy or radiculopathy, lumbosacral region- Primary Arthritis of lumbar spine Sedentary lifestyle documented in this encounter [facility] HealthcareEvaluation note* Diagnosis Spondylosis without myelopathy or radiculopathy, lumbosacral region- Primary Arthritis of lumbar spine Sedentary lifestyle documented in this encounter [facility] HealthcareEvaluation note* Diagnosis Spondylosis without myelopathy or radiculopathy, lumbosacral region- Primary Arthritis of lumbar spine Sedentary lifestyle documented in this encounter [facility] HealthcareHistory general Narrative - Reported* Type Description Date Medical History DIABETES, type 2 Medical HistoryHYPOTHYROIDMedical HistoryARTHITISMedical HistoryHYPERLIPIDEMIA Medical HistoryBPDMedical HistoryCOPDMedical HistorySLEEP APNEAMedical History depressionMedical HistoryanxietyMedical HistorybipolarMedical History schizophreniaMedical HistoryHypertensionMedical HistoryasthmaMedical History snoringMedical HistoryfatigueMedical Historysleep apneaMedical History HypothyroidismSurgical HistoryKNEE REPLACEMENTSurgical HistoryC-SECTION X2 Surgical HistoryPARTIAL HYSTERECTOMYSurgical HistoryLEFT MIDDLE FINGER AMPUTATIONHospitalization HistorySEE ABOVE [facility] Other HisScholastica general Narrative - Reported* Type Description Date Medical History DIABETES, type 2 Medical HistoryHYPOTHYROIDMedical HistoryARTHITISMedical HistoryHYPERLIPIDEMIA Medical HistoryBPDMedical HistoryCOPDMedical HistorySLEEP APNEAMedical History depressionMedical HistoryanxietyMedical HistorybipolarMedical History schizophreniaMedical HistoryHypertensionMedical HistoryasthmaMedical History snoringMedical HistoryfatigueMedical Historysleep apneaMedical History HypothyroidismSurgical HistoryKNEE REPLACEMENTSurgical HistoryC-SECTION X2 Surgical HistoryPARTIAL HYSTERECTOMYSurgical HistoryLEFT MIDDLE FINGER AMPUTATIONHospitalization HistorySEE ABOVEHospitalization HistoryPneumonia/ [id number] [facility] Other HisScholastica general Narrative - Reported* Type Description Date Medical History DIABETES, type 2 Medical HistoryHYPOTHYROIDMedical HistoryARTHITISMedical HistoryHYPERLIPIDEMIA Medical HistoryBPDMedical HistoryCOPDMedical HistorySLEEP APNEAMedical History depressionMedical HistoryanxietyMedical HistorybipolarMedical History schizophreniaMedical HistoryHypertensionMedical HistoryasthmaMedical History snoringMedical HistoryfatigueMedical Historysleep apneaMedical History HypothyroidismSurgical HistoryKNEE REPLACEMENTSurgical HistoryC-SECTION X2 Surgical HistoryPARTIAL HYSTERECTOMYSurgical HistoryLEFT MIDDLE FINGER AMPUTATIONSurgical HistoryEGD Dr Norton-2022Hospitalization HistorySEE ABOVE Hospitalization HistoryPneumonia/ [id number] [facility] Other History of Present illness Narrative* Patient [...] following healthy heart diet and stop smoking [facility] [employer] DO Work Phone: History of Present illness Narrative* [...] following healthy heart diet and stop smoking [facility] [employer] DO Work Phone: History of Present illness Narrative* [...] following healthy heart diet and stop smoking [facility] DO Work Phone: Hospital Discharge instructions Additional Instructions Speech therapy recommendations: *Thin liquids *Regular solids *No mixed consistencies *Whole meats *Give pills whole, one at a time, with water or applesauce *Sit upright at 90 degrees during all oral intake *Take small bites and sips *Pace yourself and eat a slow-rate *Sit upright for 30 minutes after meals and [facility] Work Phone: Hospital Discharge instructions Additional Instructions [...] bowel control high fever or any other concernsK[facility] Work Phone: Hospital Discharge instructions No data available for this section [facility] Progress note No data available for this section [facility] Reason for visit Narrativepain management possible referralOlm[place] [facility]CL[facility] Other Reason for visit Narrative* Consultation (Routine) - AuthorizedSpecialtyDiagnoses / ProceduresReferred By ContactReferred To ContactPhysical Therapy Diagnoses Right cervical radiculopathy Procedures MS OFFICE/OUTPATIENT NEW HIGH MDM 60 MINUTES Erika Orosco PA [address] [facility] [address] [place] [address] Sisi Lucas, PT [address] [place] [address] Referral IDStatusReasonStart DateExpiration DateVisits RequestedVisits [id number] Consult and Treat / [facility] HealthcareReason for visit Narrative* Consultation (Routine) - Closed SpecialtyDiagnoses / ProceduresReferred By ContactReferred To ContactNeurology Diagnoses Sciatica, unspecified side Procedures MS OFFICE/OUTPATIENT NEW LOW MDM 30 MINUTES Sisi Saravia MD [address] [place] [address] Phone: tel:[phone] fax: iNtza Simeon DO [address] [place] [address] Phone: tel: fax: Referral IDStatusReasonStart DateExpiration DateVisits RequestedVisits [id number] Consult and Treat / [facility] HealthcareReason for visit Narrative* Rehabilitation - Outpatient (Routine) - AuthorizedSpecialtyDiagnoses / ProceduresReferred By ContactReferred To ContactPhysical Therapy Diagnoses Spondylosis without myelopathy or radiculopathy, lumbosacral region Procedures MS PHYSICAL THERAPY EVALUATION LOW COMPLEX 20 MINS MS OFFICE/OUTPATIENT NEW HIGH MDM 60 MINUTES Linda Archer MD [address] [facility] [address] [place] [address] Phone: tel: fax: Leny Chacon, PT Referral Greta DateExpiration DateVisits RequestedVisits [id number]/5/20252/23/20262020 [facility] [place] for visit Narrative* Rehabilitation - Outpatient (Routine) - AuthorizedSpecialtyDiagnoses / ProceduresReferred By ContactReferred To ContactPhysical Therapy Diagnoses Spondylosis without myelopathy or radiculopathy, lumbosacral region Procedures MS PHYSICAL THERAPY EVALUATION LOW COMPLEX 20 MINS MS OFFICE/OUTPATIENT [facility] MDM 60 MINUTES Linda Archer MD [address] [place] [address] Phone: tel: fax: Leny Chacon PT Referral IDSCarlos DateExpiration DateVisits RequestedVisits [id number] [facility] Chief Complaint AISHWARYA HARTMAN is being seen for abnormal test(s) results and stress.AISHWARYA HARTMAN is being seen for a 6 month follow-up of. Family History No Family History Records FoundUnknown Family Member Name Dates Details Family history of atheroscle rosis: Father(V17.49, Z82.49) Status:ActiveFamily history of parkinsonism: Mother(V17.2, Z82.0) Status:ActiveFamily history of diabetes mellitus: Mother, Sister(V18.0, Z83.3) Status:ActiveFamily history of cerebrovascular accident (CVA): Mother, Brother (V17.1, Z82.3) Status:ActiveHeart valve transplanted: Brother(V42.2, Z95.2) Status:Active Unknown Family Member Name Dates Details Family history of atheroscle rosis: Father(V17.49, Z82.49) Status:ActiveFamily history of parkinsonism: Mother(V17.2, Z82.0) Status:ActiveFamily history of diabetes mellitus: Mother, Sister(V18.0, Z83.3) Status:ActiveFamily history of cerebrovascular accident (CVA): Mother, Brother (V17.1, Z82.3) Status:ActiveHeart valve transplanted: Brother(V42.2, Z95.2) Status:Active Relationship Condition Age at Onset Recorded Date/T rosa father Myocardial infarction Unknown grandparentMyocardial infarctionUnknownDiabetes mellitusUnknownNot Specified Parkinson's diseaseUnknown Unknown Family Member Name Dates Details Family history of atheroscle rosis: Father(V17.49, Z82.49) Status:ActiveFamily history of parkinsonism: Mother(V17.2, Z82.0) Status:ActiveFamily history of diabetes mellitus: Mother, Sister(V18.0, Z83.3) Status:ActiveFamily history of cerebrovascular accident (CVA): Mother, Brother (V17.1, Z82.3) Status:ActiveHeart valve transplanted: Brother(V42.2, Z95.2) Status:Active Relationship Condition Age at Onset Recorded Date/T rosa father Myocardial infarction Unknown DeceasedUnknownHeart diseaseUnknowngrandparentDiabetes mellitusUnknownMyocardial infarctionUnknownNot SpecifiedParkinson's diseaseUnknownFamily history of mental disorderUnknownHypertensionUnknownfamily memberObesityUnknown Relationship Condition Age at Onset Recorded Date/T rosa father Myocardial infarction Unknown DeceasedUnknownHeart diseaseUnknowngrandparentDiabetes mellitusUnknownMyocardial infarctionUnknownmotherParkinson's diseaseUnknownFamily history of mental disorderUnknownHypertensionUnknownauntObesityUnknown Chief Complaint and Reason for Visit Chief Complaint Obesity Z96.651 Chief Complaint Z96.651 Obesity Chief Complaint Z96.651 OA, polyarthralgia, gout, meds Obesity low bp dizzyReason for VisitAcute hyponatremia ANA MARIA (acute kidney injury) Pneumonia [...] OP SP RTKA PAIN BH hip, leg painReason for VisitHistory of total right knee replacement Primary osteoarthritis of left knee Chief Complaint hip, leg pain BH ibs/gastroparesisReason for VisitDysphagia Gastroparesis GERD (gastroesophageal reflux disease) Irritable bowel syndrome with constipation Advance Directives No Advanced Directives Records Found Advance Directive Response Recorded Date/ Time Advance Directives No May 30, 2021 10:06am Advance Directive Response Recorded Date/ Time Advance Directives No May 30, 2021 9:06am Summary Purpose Reason for Referral SpecialtyDiagnoses / ProceduresReferred By ContactReferred To ContactRadiology Diagnoses Chest pain, unspecified type Procedures Nuclear Stress Test CHG MYOCARDIAL SPECT MULTIPLE STUDIES Noman Henriquez MD [address] [facility] [address], [facility] [address] [place] [address] Referral IDStatusReasonStart DateExpiration DateVisits RequestedVisits [id number]/15/20248/ Reason 10/18/22 @ 10:30 g enicular block for left knee pain Diagnosis 1 Osteoarthritis of le ft knee, unspecified osteoarthritis type (M17.12) Referral Organization [facility] Referring Provider First Name Osvaldo Referring Provider Last Name Armando ORTEGA Referring Provider Specialty Orthopedic Surgery Referred Organization [facility] Pain Manageluis manuel Ellison Referred Provider Rick Alberto Referred Address [address] [facility] [place], [place],[address] Referred Provider Specialty Pain Medicin e Referral Priority Routine Referral Appointment Date 2022-10-18 General Notes Please schedule cons ultation with Dr. Stephanie Alberto in pain management. Telma Gentile 09/28/2022 01:30:45 PM >received today, sending the outgoing referral at this time Telma Gentile 10/01/2022 11:15:46 AM >pt has been scheduled 10/18/22 Katina Brantley 10/24/2022 07:14:42 AM >Sent telephone encounter to referring physician to let themknow that the consult letter is ready for their review Additional Source Comments REASON FOR VISIT (unrecogniz ed section and content) ReasonOnset DateCommentsre: PT today10/01/2023She called noting not feeling well today and needs to cx; I reminded and she confirmed 10/03.SpecialtyDiagnoses / ProceduresReferred By ContactReferred To ContactRadiology Diagnoses Chest pain, unspecified type Procedures Nuclear Stress Test CHG MYOCARDIAL SPECT MULTIPLE STUDIES Noman Henriquez MD [address] [facility] [address], [place] [address] [place] [address] Referral IDStatusReasonStart DateExpiration DateVisits RequestedVisits [id number]/[id number] last seen in 2ReasonCommentsPainReasonCommentsFoot Rfpnxfs11 yo SIMONIZER presents today for concerns of pain and [...] Active Member Role Status Dates Sisi Saravia NP-Mira Primary Care Provider Active Team Status: Inactive Member Role Status Dates Sisi Saravia NP-Mira Primary Care Provider Active Start: October 31, 2023 End: October 30Pascale Onofre ProviderActiveStart: October 31, 2023 End: October 31, 2023 Team Status: Inactive Member Role Status Dates IDALMIS Sesay Primary Care Provider Active Start: November 11, 2023 End: November 11, 2023Samantha Villeda ProviderActiveStart: November 11, 2023 End: November 11, 2023 Team Status: Inactive Member Role Status Dates IDALMIS Sesay Primary Care Provider Active Start: December 02, 2023 End: December 01venkata Maciel NPActiveStart: December 02, 2023 End: December 02, 2023Sherif S Zoë , MDAttending ProviderActiveStart: December 02, 2023 End: December 02, 2023 Team Status: Inactive Member Role Status Dates Osvaldo Roberts II, MD Attending Provider Active Start: January 02, 2024 End: January 01jacquie Saravia , SIMONIZER-CPrimary Care ProviderActiveStart: January 02, 2024 End: January 02, 2024 Team Status: Active Member Role Status Dates Sisi Saravia SIMONIZER-C Primary Care Provider Active Start: January 06, 2024 Jesu Velazquez , MDAttending ProviderActiveStart: January 06, 2024 Team Status: Active Member Role Status Dates Osvaldo Roberts II, MD Attending Provider Active Start: January 09, 2024 Sisi Saravia , SIMONIZER-CPrimary Care ProviderActiveStart: January 09, 2024 Team Status: Inactive Member Role Status Dates Sisi Saravia SIMONIZER-C Primary Care Provider Active Start: January 09, 2024 End: January 08mary Roberts II, MDAttending ProviderActiveStart: January 09, 2024 End: January 09, 2024 Team Status: Active Member Role Status Dates Sisi Saravia SIMONIZER-C Primary Care Provider Active Start: October 29, 2023 Jesu Velazquez , MDAttending ProviderActiveStart: October 29, 2023 Team Status: Inactive Member Role Status Dates Sisi Saravia SIMONIZER-C Primary Care Provider Active Start: August 28, 2023 End: August 28, 2023Jet Bansal , MDAttending ProviderActiveStart: August 28, 2023 End: August 28, 2023 Team Status: Inactive Member Role Status Dates Jet Bansal MD Attending Provider Active Sta rt: September 17, 2023 End: September 17, 2023 Team Status: Inactive Member Role Status Dates Sisi Saravia SIMONIZER-C Primary Care Provider Active Start: October 09, 2023 End: October 09, 2023Jet Bansal , MDAttending ProviderActiveStart: October 09, 2023 End: October 09, 2023 Team Status: Active Member Role Status Dates Sisi Saravia SIMONIZER-C Primary Care Provider Active Start: October 09, 2023 Olivia Jacques Provider, Other ProviderActiveStart: October 09, 2023 Team Status: Active Member Role Status Dates Sisi Saravia SIMONIZER-C Primary Care Provider Active Start: July 16, 2023 Olivia Leonardo ProviderActiveStart: July 16, 2023 Team Status: Inactive Member Role Status Dates Sisi Saravia SIMONIZER-C Primary Care Provider Active Start: July 24, 2023 End: July 24, 2023Jet Bansal MDAttester ProviderActiveStart: July 24, 2023 End: July 24, 2023 Team Status: Inactive Member Role Status Dates Jet Bansal MD Attending Provider Active Sta rt: July 31, 2023 End: July 31, 2023 Team Status: Inactive Member Role Status Dates Sisi Saravia SIMONIZER-C Primary Care Provider Active Start: August 06, 2023 End: August 06, 2023Olivia Jacques ProviderActiveStart: August 06, 2023 End: August 06, 2023 Team Status: Inactive Member Role Status Dates Sisi Saravia SIMONIZER-C Primary Care Provider Active Olivia Jacques ProviderActive Team Status: Active Member Role Status Dates Sisi Saravia SIMONIZER-C Primary Care Provider Active Deb Honeycutt ProviderActive Team Status: Inactive Member Role Status Dates Sisi Saravia SIMONIZER-C Primary Care Provider Active Olivia Gee II ProviderActive Team Status: Inactive Member Role Status Dates Sisi Saravia SIMONIZER-C Primary Care Provider Active Olivia Camarillo ProviderActive Team Status: Inactive Member Role Status Dates Sisi Saravia SIMONIZER-C Primary Care Provider Active Mirtha Craig ProviderActiveOanh Ortega Provider, Attending ProviderActive Team Status: Inactive Member Role Status Dates Sisi Saravia , SIMONIZER-C Primary Care Provider, Attend ing Provider Active Team MemberRelationshipSpecialtyStart DateEnd Date Unallocated, Noms Provider [facility] [place] [address] PCP - Jwvodqs06/12/23 Sisi Saravia MD [address] [place] [address] Referring PhysicianFamily Medicine02/07/23Team MemberRelationshipSpecialtyStart DateEnd Date Unallocated, Noms Provider [address] [place] [address] PCP - Hidbcci58/12/23 Sisi Saravia MD [address] [place] [address] Referring PhysicianFamily Medicine02/07/23Team MemberRelationshipSpecialtyStart DateEnd Date Unallocated, Noms Provider [address] [facility] [place] [address] PCP - Ovctvlg46/12/23 Sisi Saravia MD [address] [place] [address] Referring PhysicianFamily Medicine02/07/23Team MemberRelationshipSpecialtyStart DateEnd Date Unallocated, Noms Provider [address] [place] [address] PCP - Rfeohtl68/12/23 Sisi Saravia MD [address] [place] [address] Referring PhysicianFamily Medicine02/07/23Team MemberRelationshipSpecialtyStart DateEnd Date Unallocated, Noms Provider [address] [place] [address] PCP - Ytiriwf81/12/23 Sisi Saravia MD [address] [place] [address] Referring PhysicianFamily Medicine02/07/23 Team Status: Active Member Role Status Dates Sisi Saravia NP-C Primary Care Provider Active Start: September 25, 2023 Jesu Velazquez , MDAttending ProviderActiveStart: September 25, 2023 Team Status: Inactive Member Role Status Dates Osvaldo Roberts II, MD Attending Provider Active Start: January 09, 2024 End: January 08TYLOR NolascoCPrimary Care ProviderActiveStart: January 09, 2024 End: January 09, 2024 Team Status: Active Member Role Status Dates Sisi Saravia NP-C Primary Care Provider Active Start: March 09, 2024 Jesu Velazquez , MDAttending ProviderActiveStart: March 09, 2024 Team Status: Inactive Member Role Status Dates Sisi Saravia NP-C Primary Care Provider Active Start: March 24, 2024 End: March 24, 2024ERIKA AlvaradoP-BCEmergency ProviderActiveStart: March 24, 2024 End: March 24, 2024Team MemberRelationshipSpecialtyStart DateEnd Date Sisi Saravia, SCRATCHER-PROTOCOL MANAGER [address] [place] [address] PCP - Raoroib99/22/22Team MemberRelationshipSpecialtyStart DateEnd Date Sisi Saravia, SCRATCHER-PROTOCOL MANAGER [address] [place] [address] PCP - Mhzbhms00/22/22Team MemberRelationshipSpecialtyStart DateEnd Date Sisi Saravia, SCRATCHER-PROTOCOL MANAGER [address] [place] [facility] [address] PCP - Mpfwloj43/22/22Team MemberRelationshipSpecialtyStart DateEnd Date Sisi Saravia, SCRATCHER-PROTOCOL MANAGER [address] [place] [address] PCP - Gogmvkp13/22/22 Team Status: Active Member Role Status Dates Sisi Saravia SIMONIZER-C Primary Care Provider Active Start: June 09, 2024 Olivia Leonardo ProviderActiveStart: June 09, 2024 Team Status: Inactive Member Role Status Dates Sisi Saravia SIMONIZER-C Primary Care Provider Active Start: June 15, 2024 End: June 15alexa Pacheco DOAttester ProviderActiveStart: June 15, 2024 End: June 15, 2024Team MemberRelationshipSpecialtyStart DateEnd Date Sisi Saravia S, SCRATCHER-PROTOCOL MANAGER [address] [place] [address] PCP - Cuhsaod74/22/22Team MemberRelationshipSpecialtyStart DateEnd Date Unallocated, Benton Hdez MD [address] [place] [address] PCP - Ubafbxo72/12/23 Sisi Saravia MD [address] [place], [place] [id number] Referring [facility]icianBay[facility] Medicine02/07/23Team MemberRelationshipSpecialtyStart DateEnd Date Unallocated, Benton Hdez MD [address] [place] [address] PCP - Wnnfvzq92/12/23 Sisi Saravia MD [address] [place] [address] Referring PhysicianFafoxborough state hospital Medicine02/07/23Te MemberRelationshipSpecialtyStart DateEnd Date Unallocated, Benton Hdez MD [address] [place] [address] PCP - Newjukq81/12/23 Sisi Saravia MD [address] [place] [address] Referring PhysicianFamily Medicine02/07/23 MemberRelationshipSpecialtyStart [place] [address] [place] [address] Referring PhysicianFamily Medicine12/24/24am MemberRelationshipSpecialtyStart [place] [address] [place] [address] Referring PhysicianFamily Medicine12/24/24am MemberRelationshipSpecialtyStart [place] [address] [place] [address] Primary Care ProviderFamily Medicine12/24/24Team MemberRelationshipSpecialtyStart DateEnd Date Sisi Saravia MD [address] [place] [address] Primary Care ProviderFamily Medicine12/24/24Te MemberRelationshipSpecialtyStart DateEnd Date Sisi Saravia MD [address] [place] [address] Primary Care ProviderFamily Medicine12/24/24Team MemberRelationshipSpecialtyStart DateEnd Date Sisi Saravia MD [address] [place] [address] Primary Care ProviderFamily Medicine12/24/24Team MemberRelationshipSpecialtyStart DateEnd Date Sisi Saravia MD [address] [place] [address] [facility]/24Team MemberRelationshipSpecialtyStart DateEnd Date Sisi Saravia MD [address] [place] [address] [facility] [place]/24Team MemberRelationshipSpecialtyStart DateEnd Date Sisi Saravia MD [address] [place] [address] [facility] [place]12/24/24Team MemberRelationshipSpecialtyStart DateEnd Date Sisi Saravia MD [address] [place], [place] [id number] [facility] [place]12/24/24 Goals (unrecognized section and content) Goals may be documented in a n alternate section INFORMATION SOURCE (unrecogn ized section and content) DATE CREATED AUTHOR 07/11/2022 [facility] DATE CREATED AUTHOR AUTHOR'S ORGANIZ ATION 07/11/2022 [facility] DATE CREATED AUTHOR AUTHOR'S ORGANIZ ATION 08/15/2022 [facility] DATE CREATED AUTHOR AUTHOR'S ORGANIZ ATION 04/04/2024 [facility] DATE CREATED AUTHOR AUTHOR'S ORGANIZ ATION 07/21/2024 [facility] DATE CREATED AUTHOR AUTHOR'S ORGANIZ ATION 05/06/2025 [facility] DATE CREATED AUTHOR AUTHOR'S ORGANIZ ATION 05/24/2025 [facility] DATE CREATED AUTHOR AUTHOR'S ORGANIZ ATION 06/07/2025 [facility] FOR RECORDS PERTAINING TO PATIENTS WHO ARE [...] BE BASED ON THE PRIMARY CLINICAL RECORDS. [facility] provides no warranty or guarantee of the accuracy or completeness of information in this document.
== END 2025-07-12 09:37 | disposition home or self-care (01) ==
PROVIDERS: PCP Nurse Practitioner Family; Visit Provider Nurse Practitioner Family
DX: R60.0 Localized edema (principal); M85.88 Other specified disorders of bone density and structure, other site; M17.12 Unilateral primary osteoarthritis, left knee
CPT/HCPCS: 73562; 93971

== ENCOUNTER 2025-07-26 13:00 | Outpatient (OUT) | payer MEDICARE, MEDICAID, SELFPAY ==
--- OUTSIDE RECORDS SUMMARY | 2025-07-26 13:06 | XMS_ITS | CCD ---
Author Organization [facility] ion Partnership [facility] Care Team Providers Care Animal Husbandry Professor Name Role Phone Sisi Saravia Unavailable Unavailable Unavailable Nahid Landry Unavailable Nimco Lawson Unavailable Katina Padilla Unavailable Osvaldo Roberts II Unavailable IDALMIS Saravia Primary Care Provider [phone] MAIKEL Orosco Attending Provider MD Osvaldo Roberts II Attending Provider IDALMIS Saravia Primary Care Provider MAIKEL Orosco Attending Provider MD Luis Miguel Garibay Attending Provider [phone] Carol Avilez Unavailable IDALMIS Saravia Primary Care Provider MD Osvaldo Roberts II Attending Provider MD Luis Miguel Garibay Attending Provider MAIKEL Orosco Attending Provider MAIKEL Quintanilla Emergency Provider MD Piper Tate Admit Provider MD Piper Tate Attending Provider iSsi Saravia Referring Unav ailable Traboulssi, Dr. Bernardo [...] Care Unavailable RANI, SISI Consulting Unavailable Rani, 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-C Sisi Isabella Primary Care Provider [phone] MAIKEL Orosco Attending Provider [phone] IDALMIS Saravia Sisi Isabella Attending Provider [phone] Fransisco Kemp Unavailable Rick Alberto Unavailable Jet Bansal Unavailable IDALMIS Saravia Sisi Isabella Primary Care Provider [phone] MAIKEL Orosco Attending Provider MD Jet Bansal Attending Provider IDALMIS Saravia Sisi Isabella Primary Care Provider [phone] Rani HOLLINS, Sisi Unavailable Unallocated, Noms Provider Primary Care Provider IDALMIS Saravia Sisi Isabella Primary Care Provider MD Jesu Velazquez Attending Provider [phone] IDALMIS Saravia Sisi Isabella Primary Care Provider [phone] MD Jet Bansal Attending Provider [phone] BRITTANEY Kenny Emergency Provider [phone] MD Jesu Velazquez Attending Provider IDALMIS Saravia Sisi Isabella Primary Care Provider [phone] MD Jet Bansal Attending Provider IDALMIS Saravia Sisi Isabella Primary Care Provider MD Jesu Velazquez Attending Provider MD Osvaldo Roberts II Attending Provider IDALMIS Saravia Sisi Isabelal Primary Care Provider [phone] MD Jesu Velazquez Attending Provider [phone] IDALMIS Saravia Sisi Isabella Primary Care Provider MD Jesu Velazquez Attending Provider [phone] Connor [facility] Tabitha Llanos Emergency Provider NOMAN HENRIQUEZ Attending Unavailable RANI, SISI S Primary Care Unavailable Rani TREE PULLER-STUDENT OFFICER, Sisi S Primary Care Provider IDALMIS Saravia Sisi Isabella Primary Care Provider [phone] MD Jesu Velazquez Attending Provider [phone] NOMAN HENRIQUEZ Referring Unavailable RANI, SISI S [...] Attending Unavailable LENY CHACON Attending Unavailable TUROVSKAYA, ILNDA Referring Unavailable HEAVEN BECK Attending Unavailable TUROVSKAYA, [...] TypeDate of OnsetReaction(s) FacilityAnti-Epileptic Agents (1 source)gabapentinDrug Emwghhp90-60-5881KkuxaauvqDutqctuvpSt. Anthony's HospitalAtenolol (1 source)AtenololDrug Chndggq62-00-8149tawkDayton Osteopathic Hospitalpregabalin (1 source)pregabalinDrug Fipejfu91-31-5131SxiujexabFvndliaufAkron Children's Hospital (20 sources)Amoxicillin; Translations: [amoxicillin]Drug Sumnxuz96-13-6039Aqrxu [facility] Work Phone: (20 sources)AtenololDrug Lltadxt60-57-8660nrewDayton Osteopathic Hospital (20 sources)LisinoprilAllergy to gqeczrskf24-54-0314EkujKBYR Healthcare (20 sources)TalcDrug Aanzlwd44-39-3452DvzeCPUG Healthcare (12 sources)gabapentin; Translations: [GABAPENTIN]Drug Tdicwuq26-98-6700 [facility] (12 sources)pregabalin; Translations: [PREGABALIN]Drug Wzpeujp63-40-2592 [facility] (11 sources)Doxycycline; Translations: [DOXYCYCLINE]Drug Vdbiepo23-83-1171 [facility] (8 sources)[place]; Translations: [LITHIUM]Drug Ndvsyhm60-87-9104Wpiqnuioojaewb [facility] (2 sources)dapagliflozin; Translations: [dapagliflozin]Drug Xumqyrs81-70-5228 [facility] (1 source)AtenololDrug Kkdgtik45-45-9222NnnvysgvuWilson Memorial Hospital Repository Medications Current Medications MedicationDrug Class(es)DatesSig (Normalized)Sig (Original)0.25 MG, 0.5 MG Dose 3 ML semaglutide 0.68 MG/ML Pen Injector [Ozempic] (1 source)Start: 81-98-9331Lwojaxh (0.25 or 0.5 MG/DOSE) 2 MG/3ML 0.25 mg for one month and then increase to 0.5 mg dose Subcutaneous weekly for 30 May, Active3 ML semaglutide 1.34 MG/ML Pen Injector [Ozempic] (5 sources)Start: 79-08-7666kpvrpr 1 mg by subcutaneous injection every week Ozempic (1 MG/DOSE) 4 MG/3ML 1 mg as directed Subcutaneous weekly for 30 days Apr, Activeinject 1 mg by subcutaneous injection every weekOzempic (1 MG/DOSE) 4 MG/3ML INJECT 1MG SUBCUTANEOUSLY ONCE A WEEK for 30 Active3 ML semaglutide 2.68 MG/ML Pen Injector [Ozempic] (9 sources)Start: 02-24-3219tbkzxn 2 mg by subcutaneous injection every week [...] mg oral tablet (20 sources)Xanthine Oxidase InhibitorStart: 32-95-0749bpra 1 mg by mouth once dailyallopurinol 300 mg Tab mg tab(s), Oral, Daily, Refills(s) 0 Start Date: 05/05/25 Status: Ordered Repeat number: 1azelastine hydrochloride 0.5 mg/ml ophthalmic solution (20 sources)Histamine-1 Receptor AntagonistStart: 65-95-5651sxcpqvajml 0.05% Opth Mikaela drop(s), BID, Refill(s) 0 Start Date: 05/05/25 Status: Ordered Repeat number: 1Start: 11-12-2022 End: 40-60-5860anyw 1 drop(s) into the eye(s) twice dailyAzelastine Discontinued 1 DROPS EYE-BOTH Twice daily November 12, 2022 12:00am July 24, 2023 10: 05amStart: 07-77-5125Tqyvbxaeth HCl - 0.05 % Ophthalmic Solution Quantity: [...] mouth Daily ActiveBaclofen (2 sources)gamma-Aminobutyric Acid-ergic AgonistStart: 69-63-6297hyycvkhv Oral, TID, Refills(s) 0 Start Date: 05/05/25 Status: Ordered Repeat number: 1Start: 69-92-6264ejcq 5 mg by mouth once dailyBaclofen Active 5 MG PO Daily June 15, 2024 12:00amCelebrex (1 source)Nonsteroidal Anti-inflammatory DrugStart: 13-48-0719Yvdlgrtn Oral, Refills(s) 0 Start Date: 05/05/25 Status: Ordered Repeat number: 1cetirizine hydrochloride 10 mg oral capsule (20 sources)Histamine-1 Receptor AntagonistStart: 53-00-1185tpfsdzitna 10 mg oral capsule 10 mg = 1 cap(s), Oral, Daily, PRN for allergy symptoms, # 40 cap(s),Refills(s) 0 Start Date: 05/05/25 Status: Ordered Quantity: 40.0 Unit: cap(s) Repeat number: 1Start: 01-02-2024 End: 04-85-4481xhsi 1 tablet by mouth once dailyCetirizine (Zyrtec) 10 mg tablet Discontinued 10 MG PO Daily January 02, 2024 12:00am June 15, 2024 11:05am cholecalciferol 0.025 mg oral capsule (11 sources)Vitamin DStart: 50-19-6095acpi 25 ug by mouth once daily Cholecalciferol (Vitamin D3) Active 25 MCG PO Daily January 02, 2024 12:00am DULoxetine 30 mg delayed release oral capsule (1 source)Serotonin and Norepinephrine Reuptake InhibitorStart: 58-20-8068xuut 30 mg by mouth once dailyDuloxetine Active 30 MG PO Daily June 15, 2024 12:00amduloxetine 20 mg Cap-DR (1 source)Start: 46-33-6713ourpibjpmy 20 mg Cap-DR Oral, Refills(s) 0 Start Date: 05/05/25 Status: Ordered Repeat number: 1ezetimibe 10 mg oral tablet (19 sources)Dietary Cholesterol Absorption InhibitorStart: 65-91-5729dwwa 1 mg by mouth once dailyezetimibe 10 mg Tab mg tab(s), Oral, Daily, Refills(s) 0 Start Date: 05/05/25 Status: Ordered Repeatnumber: 1Start: 07-24-2023 End: 99-02-3570bbkx 10 mg by mouth once dailyEzetimibe Discontinued 10 MG PO Daily July 24, 2023 1:00am January 02, 2024 1:25pmEzetimibe Activefamotidine 40 mg oral tablet (20 sources)Histamine-2 Receptor AntagonistStart: 84-97-0984nkvc 1 mg by mouth once daily at bedtimePepcid 40 mg Tab mg tab(s), Oral, Once a day (at bedtime), Refills(s) 0 Start Date: 05/05/25 Status:Ordered Repeat number: 1Start: 86-63-9382aphd 1 tablet by mouth once daily at bedtimeFamotidine (Pepcid) 40 mg tablet Active 40 MG PO Daily at bedtime June 15, 2024 12:00amStart: 06-24-2022 End: 85-13-6682bwdy 1 tablet by mouth once dailyFamotidine (Pepcid) 20 mg tablet Discontinued 20 MG PO Daily June 24, 2022 12:00am November 12, 2022 10:48amfamotidine (Pepcid) 10 MG tablet Take by mouth Activefexofenadine (5 sources)Histamine-1 Receptor AntagonistAllegra Xhhiri91 actuat fluticasone furoate 0.1 mg/actuat / umeclidinium 0.0625 mg/actuat / vilanterol 0.025 mg/ac tuat dry powder inhaler (20 sources)Anticholinergic, Corticosteroid, beta2-Adrenergic AgonistStart: 66-12-4195sqnw 1 puff(s) by inhalation in the morningTrelegy Ellipta 100-62.5-25 MCG/ACT aerosol powder Inhale 1 puff in the morning. 02/08/2024 ActiveStart: 47-69-3750xinl 1 puff(s) by inhalation once dailyTrelegy Ellipta 100-62.5-25 mcg blister with device Inhale 1 puff once daily. 02/08/2024 ActiveStart: 19-68-2517Rmpimhnrvas-Umeclidin-Vilanter (Trelegy Ellipta) 100-62.5-25 mcg blister with device Active 1 INH INHALATION Daily January 02, 2024 12:00amStart: 11-12-2022 End: 62-12-9853Oxpbjxdunft-Umeclidin-Vilanter (Trelegy Ellipta) 100-62.5-25 mcg blister with device Discontinued 1INH INHALATION Daily November 12, 2022 12:00am January 02, 2024 1:25pmStart: 17-91-4692Cqrqclthoyr-Umeclidin-Vilanter (Trelegy Ellipta) 100-62.5-25 mcg blister with device Active 1 INH INHALATION Daily November 12, 2022 12:00amStart: 38-55-8719Unsmsddjpix-Umeclidin-Vilanter (Trelegy Ellipta) 100-62.5-25 mcg blister with device Active 1 INH INHALATION Daily November 11, 2022 11:00pmfurosemide 20 mg oral tablet (18 sources)Loop DiureticStart: 17-82-6741wdon 1 mg by mouth once dailyLasix 20 mg Tab mg tab(s), Oral, Daily, Refills(s) 0 Start Date: 05/05/25 Status: Ordered Repeat number: 1Garlic preparation (6 sources)Non-Standardized Food Allergenic ExtractGarlic Active hydroCHLOROthiazide 25 mg oral tablet (20 sources)Thiazide DiureticStart: 76-43-6586xohr 1 mg by mouth once daily hydrochlorothiazide 25 mg Tab mg tab(s), Oral, Daily, Refills(s) 0 Start Date: 05/05/25 Status: Ordered Repeat number: 1hydroCHLOROthiazide 12.5 mg / irbesartan 150 mg oral tablet (5 sources)Thiazide Diuretic, Angiotensin 2 Receptor BlockerStart: 01-02-2024 take 1 tablet by mouth once dailyIrbesartan-Hydrochlorothiazide Active 1 TAB PO Daily January 02, 2024 12:00amIpratropium (1 source)AnticholinergicStart: 42-69-5934dxblyhwoxdc mcg, QID, Refills(s) 0 Start Date: 05/05/25 Status: Ordered Repeat number: 1irbesartan 150 mg oral tablet (20 sources)Angiotensin 2 Receptor BlockerStart: 67-25-7792uwee 1 mg by mouth once dailyirbesartan 150 mg Tab mg tab(s), Oral, Daily, Refills(s) 0 Start Date: 05/05/25 Status: Ordered Repeat number: 1Start: 49-73-4209raxt 150 mg by mouth twice dailyIrbesartan Active 150 MG PO Twice daily June 21, 2022 11:00pm Start: 05-05-2020 End: 33-58-3841bnzu 150 mg by mouth once dailyIrbesartan Discontinued 150 MG PO Daily June 22, 2022 12:00am January 02, 2024 1:25pmlevothyroxine sodium 0.15 mg oral tablet (20 sources)l-ThyroxineStart: 04-02-2954pfik 1 tablet by mouth once daily levothyroxine 150 mcg (0.15 mg) Tab mcg tab(s), Oral, Daily, Refills(s) 0 Start Date: 05/05/25 Status: Ordered Repeat number: 1Start: 50-08-1036jnlh 150 ug by mouth once dailyLevothyroxine Active 150 MCG PO Daily June 22, 2022 12:00am take 1 tablet by mouth once daily in the morningLevothyroxine Sodium 150 MCG 1 tablet in the morning on an empty stomach Orally Once a day ActiveLevothyroxine Sodium Activeliothyronine sodium 0.005 mg oral tablet (18 sources)l-TriiodothyronineStart: 16-81-9373zlol 1 ug by mouth once daily liothyronine 5 mcg Tab mcg tab(s), Oral, Daily, Refills(s) 0 Start Date: 05/05/25 Status: Ordered Repeat number: 1take 1 tablet by mouth once dailyliothyronine (Cytomel) 5 MCG tablet Take by mouth Daily ActiveMagnesium (20 sources)Start: 92-35-2843gmzl 250 mg by mouth once dailyMagnesium Active 250 MG PO Daily January 02, 2024 12:00amMAGNESIUM PO Take 500 mg by mouth Activetake 1 tablet by mouth in the morningmagnesium 250 mg tablet Take 1 tablet (250 mg) by mouth early in the morning.. Activemagnesium oxide 400 mg oral tablet (1 source)Start: 03-19-6115buey 1 mg by mouth once dailymagnesium oxide 400 mg Tab mg tab(s), Oral, Daily, Refills(s) 0 Start Date: 05/05/25 Status: Ordered Repeat number: 1Singulair (20 sources)Leukotriene Receptor AntagonistStart: 87-98-9669Dpsqvndtc Daily, Refills(s) 0 Start Date: 05/05/25 Status: Ordered Repeat number: 1montelukast (Singulair) 10 MG tablet Take by mouth Activenaproxen 500 mg delayed release oral tablet (11 sources)Nonsteroidal Anti-inflammatory Drug End: 81-20-6093bzxr 1 tablet by mouth in the morningnaproxen (EC Naprosyn) 500 MG EC tablet Take 500 mg by mouth in the morning and 500 mg in the evening. 12/23/2024 Discontinued (Therapy completed)Nitro Sublingual 0.4 0.4mg (20 sources)Nitro Sublingual 0.4 0.4mg 1 Sublingual Every 5min x3 Active nortriptyline 50 mg oral capsule (20 sources)Tricyclic AntidepressantStart: 76-77-7903lywl 1 mg by mouth three times dailynortriptyline 50 mg oral capsule mg cap(s), Oral, TID, Refills(s) 0 Start Date: 05/05/25 Status: Ordered Repeat number: 1Start: 04-96-3817rcyr 50 mg by mouth at bedtimeNortriptyline Active 50 MG PO Bedtime June 22, 2022 12:00amOmega 3 Fish Oil (6 sources)[place] 3 Fish Oil Activeomega 0-jgh-jdl-fish oil (Fish OiL) 1,200 (144-216) mg capsule (6 sources)take 1 capsule by mouth in the morningomega 2-iss-vjo-fish oil (Fish OiL) 1,200 (144-216) mg capsule Take 1 capsule (1,200 mg) by mouth early in the morning.. Activeomeprazole 40 mg delayed release oral capsule (20 sources)Proton Pump InhibitorStart: 80-23-1562jjek 1 mg by mouth once daily omeprazole 40 mg Cap-DR mg cap(s), Oral, Daily, Refills(s) 0 Start Date: 05/05/25 Status: Ordered Repeat number: 1Start: 11-12-2022 End: 45-30-3460oviy 1 capsule by mouth in the morningomeprazole (PriLOSEC) [address] capsule Take 40 mg by mouth in the morning and 40 mg in the evening. 01/09/2024 12/23/2024 Discontinued (Therapy completed)Start: 05-05-2020 Omeprazole 40 MG Oral Capsule Delayed Release as needed Quantity: 0 Refills: 0 Ordered: 74-Mln-7889OF Start : 05-May-2020 Activetake 1 capsule by mouth twice dailyomeprazole (PriLOSEC) [address] capsule Take 1 capsule (40 mg) by mouth 2 times a day. Activepantoprazole 40 mg delayed release oral tablet (1 source)Proton Pump InhibitorStart: 04-45-1520rqvj 40 mg by mouth once daily Pantoprazole Active 40 MG PO Daily June 15, 2024 12:00amMiralax (20 sources)Osmotic LaxativeStart: 54-32-0638tfrh 1 g by mouth once dailyMiraLax gm, Oral, Daily, Refill(s) 0 Start Date: 05/05/25 Status: Ordered Repeat number: 1Start: 06-22-2022 End: 41-43-9792Pxiyxdwvwnmw Glycol 3350 (Miralax) 17 gram/dose Powder Discontinued 4 GM PO Daily June 22, 2022 12:00am November 12, 2022 10:49am MiraLax PRN ActiveMiraLax ActivePolyethylene Glycol 3350 (Miralax) 17 gram powder in packet (1 source)Start: 39-32-2581Axxgfhvigfnx Glycol 3350 (Miralax) 17 gram powder in packet Active 17 GM PO Daily June 15, 2024 12:00amPotassium Chloride (20 sources)Start: 17-77-8901audwrffso chloride Refills(s) 0 Start Date: 05/05/25 Status: Ordered Repeat number: 1Start: 08-28-2023 End: 44-80-6080fsge 10 mEq by mouth twice dailyPotassium Chloride Discontinued 10 MEQ PO Twice daily August 28, 2023 1:00am October 23, 2023 9:31amStart: 81-93-5594itiy 10 mEq by mouth once dailyPotassium Chloride Active 10 MEQ PO Daily August 28, 2023 12:00amStart: 03-12-2021 End: 03-70-5388rioo 10 mEq by mouth twice dailyPotassium Chloride Discontinued 10 MEQ PO Twice daily November 12, 2022 12:00am July 24, 2023 10:07amtake 1 capsule by mouth in the morningpotassium chloride ER (Micro-K) 10 MEQ ER capsule Take 10 mEq by mouth in the morning and 10 mEq before bedtime. Do not crush or chew. Activepravastatin sodium 40 mg oral tablet (13 sources)HMG-CoA Reductase InhibitorStart: 03-01-7743mczd 1 mg by mouth once dailypravastatin 40 mg Tab mg tab(s), Oral, Daily, Refills(s) 0 Start Date: 9/17/25 Status: Ordered Repeat number: 1Start: 07-24-2023 End: 12-62-7253aueo 40 mg by mouth once dailyPravastatin Discontinued 40 MG PO Daily July 24, 2023 1:00am August 28, 2023 10:49ampredniSONE 10 mg oral tablet (20 sources)Start: 45-59-4386xooiefQCQW (Deltasone) 10 MG tablet Indications: Primary osteoarthritis of left ankle Take twice daily for 5 days, then take once daily for 5 days. 15 tablet 01/06/2025 ActiveStart: 03-24-2024 End: 13-99-4524wzad 20 mg by mouth twice dailyPrednisone Discontinued 20 MG PO Twice daily 05 23March 24, 2024 12:00am June 15, 2024 11:07amStart: 11-11-2023 End: 79-62-6654xehx 40 mg by mouth once daily at mealtimePrednisone Discontinued 40 MG PO Daily November 11, 2023 12:00am January 02, 2024 1:26pm administerwith food or milkStart: 06-24-2022 End: 64-34-0324Xkoffkeequ Discontinued 40 MG PO Daily 10 June [...] mg oral tablet (20 sources)Serotonin Reuptake InhibitorStart: 59-46-9611fkub 100 mg by mouth once dailyTrazodone Active 100 MG PO Daily January 02, 2024 12:00amStart: 07-24-2023 End: 73-99-6473wlya 100 mg by mouth once daily at bedtimeTrazodone Discontinued 100 MG PO Daily at bedtime July 24, 2023 1:00am October 23, 2023 9:31am Start: 41-35-5779wris 1 tablet by mouth once dailytraZODone (Desyrel) 50 MG tablet Take 50 mg by mouth 1 (one) time each day at the same time 01/07/2023 Activetake 2 tablets by mouth once daily at bedtime as needed for sleeptraZODone (Desyrel) 50 mg tablet TAKE 2 TABLETS BY MOUTH EVERY DAY AT BEDTIME NEEDED FOR SLEEP ActiveTrelegy Ellipta (7 sources)Start: 19-76-4019Qbtcyoz Ellipta Inhalation, Daily, Refills(s) 0 Start Date: 05/05/25 Status: Ordered Repeat number: 1Trelegy Ellipta Active triamcinolone acetonide 1 mg/ml topical cream (20 sources)Corticosteroidtriamcinolone (Kenalog) 0.1 % cream Apply 1 application topically in the morning and 1 application before bedtime. Active Turmeric Root Extract (5 sources)Start: 06-96-9496sxct 500 mg by mouth once dailyTurmeric Root [...] Take by mouth Activevitamin K2 (5 sources)Start: 68-14-8931dywk 180 ug by mouth once dailyVitamin K2 Active 180 MCG PO Daily January 02, 2024 12:00amvitamin K2 180 mcg capsule (6 sources)take 1 capsule by mouth in the morningvitamin K2 180 mcg capsule Take 1 capsule by mouth early in the morning.. Activeziprasidone 80 mg oral capsule (20 sources)Atypical AntipsychoticStart: 63-78-0304voqs 1 mg by mouth twice dailyGeodon 80 mg Cap mg cap(s), Oral, BID, Refills(s) 0 Start Date: 05/05/25 Status: Ordered Repeat number: 1Start: 07-24-2023 End: 95-27-6872qiyk 40 mg by mouth once dailyZiprasidone Hcl Discontinued 40 MG PO Daily July 24, 2023 1:00am January 02, 2024 1:26pmStart: 08-18-2020 End: 31-00-2777aldf 20 mg by mouth once daily in the morningZiprasidone Hcl Discontinued 20 MG PO Every morning June 22, 2022 12:00am July 24, 2023 10:08amStart: 08-18-2020 End: 96-92-6063nmzo 80 mg by mouth at bedtimeZiprasidone Hcl [...] day Active Completed/Discontinued Medications MedicationDrug Class(es)DatesSig (Normalized)Sig (Original)[id number] 200 actuat albuterol 0.09 mg/actuat metered dose inhaler (20 sources)beta2-Adrenergic AgonistStart: 06-22-2022 End: 02-52-1807sdjp 1 puff(s) by inhalation every four hoursAlbuterol [...] Ordered: 21-Sep-2020 DO Start : 21-Sep-2020 ActiveStart: 64-72-2163dwxd 1-2 puff(s) by inhalation every four to [...] 875 mg oral tablet (5 sources)Penicillin-class AntibacterialStart: 86-46-6575grnn 1 tablet by mouth every twelve hoursAmoxicillin 875 MG 1 tablet Orally every 12 hrs for 7 days Mar, Not-Takingaspirin 81 mg oral tablet (20 sources)Platelet Aggregation Inhibitor, Nonsteroidal Anti-inflammatory Drug Start: 11-12-2022 End: 31-15-8385qkns 81 mg by mouth once dailyAspirin Discontinued 81 MG PO Daily November 12, 2022 12:00am July 24, 2023 10:05amStart: 15-46-6822blev 1 tablet by mouth once dailyAspirin 81 MG Oral Tablet Delayed Release TAKE 1 TABLET DAILY. Quantity: 90 Refills: 3 Ordered: 10-Jul-2022 Noman Henriquez MD Start : 25-Aug-2021 Activeazithromycin 500 mg oral tablet (14 sources)Macrolide AntimicrobialStart: 06-24-2022 End: 54-50-8619gqyu 500 mg by mouth once dailyAzithromycin Discontinued 500 MG PO Daily 12 21June 24, 2022 12:00am November 12, 2022 10:42amB-Complex With Vitamin C (5 sources)Start: 01-02-2024 End: 25-59-7293snex 1 tablet by mouth once dailyB-Complex With Vitamin C Discontinued 1 TAB PO Daily January 02, 2024 12:00am June 15, 2024 11:05am Start: 79-81-1017ksvp 1 tablet by mouth once dailyB-Complex With [...] oral capsule (14 sources)Cephalosporin AntibacterialStart: 06-24-2022 End: 38-02-4056rrro 300 mg by mouth twice dailyCefdinir Discontinued 300 MG PO Twice daily 05 23June 24, 2022 12:00am November 12, 2022 10:42am Ciprofloxacin / Dexamethasone (12 sources)Corticosteroid, Quinolone AntimicrobialStart: 11-12-2022 End: 94-59-3353Mfnxdgtnrqxry-Dexamethasone Discontinued 4 DROPS OTIC Twice daily November 12, 2022 12:00am 2022 10:05amStart: 11-12-2022 End: 74-89-2839Uvuzorsbuqfpg-Dexamethasone Discontinued 4 DROPS OTIC Twice daily November 11, 2022 11:00pm 2022 9:05amcyclobenzaprine hydrochloride 5 mg oral tablet (2 sources)Muscle RelaxantStart: 03-24-2024 End: 34-94-0037dnna 5 mg by mouth three times dailyCyclobenzaprine Discontinued 5 MG PO Three times daily March 24, 2024 12:00am June 15, 2024 11:06am diclofenac sodium 75 mg delayed release oral tablet (20 sources)Nonsteroidal Anti-inflammatory DrugStart: 06-22-2022 End: 32-62-8363kjhv 75 mg by mouth twice dailyDiclofenac Sodium Discontinued 75 MG PO Twice daily June 22, 2022 12:00am January 02, 2024 1:16pmDiclofenac 75 mg 1tabler BID ActiveDiclofenac 75 mg xBID ActiveDiclofenac Activeempagliflozin 10 mg oral tablet (10 sources)Sodium-Glucose Cotransporter 2 InhibitorStart: 10-23-2023 End: 79-59-7715czlo 1 mg by mouth once dailyEmpagliflozin Discontinued MG PO Daily October 23, 2023 1:00am January 02, 2024 1:25pm FreeTextSig: daily orally; Note: Source Status: Taking; Provider: Zoë Chaudhary ( )take 10 mg by mouth once dailyJARDIANCE 10 mg daily orally Activeetodolac 500 mg oral tablet (14 sources)Nonsteroidal Anti-inflammatory DrugStart: 06-22-2022 End: 31-74-9501Ialhfris Discontinued MG TABLET June 22, 2022 12:00am June 22, 2022 5:29pmfluticasone propionate 0.05 mg/actuat metered dose nasal spray (20 sources)CorticosteroidStart: 09-02-2023 End: 88-63-1969svdh 1 spray(s) nasal route once dailyFluticasone Propionate Discontinued 1 SPRAY INTRANASAL Daily October 22, 2023 1:00am June 15, 2024 11:06am FreeTextSi spray in each nostril Nasally Once a day; Note: Source Status: Taking;Start: 06-22-2022 End: 39-54-3729Mwxvnexdxem Propionate Discontinued 2 SPRAY INTRANASAL Daily June 22, 2022 12:00am October 10:48amtake 1 spray(s) nasal route once dailyFluticasone Propionate 50 MCG/ACT 1 spray in each nostril Nasally Once a day Activetake 1 spray(s) nasal route once dailyFluticasone Propionate 50 MCG/ACT 1 spray in each nostril Nasally Once a day ActiveFluticasone Propion-Salmeterol (14 sources)Corticosteroid, beta2-Adrenergic AgonistStart: 06-24-2022 End: 82-60-2079Wspapzaidqu Propion-Salmeterol (Advair Diskus) 250-50 mcg/dose blister with device Discontinued 1 INH INHALATION Twice daily 60 June 24, 2022 12:00am November 12, 2022 10:48amStart: 06-24-2022 End: 48-95-2474Lvkuzocikul Propion-Salmeterol (Advair Diskus) 250-50 mcg/dose blister with device Discontinued 1 INH INHALATION Twice daily 60 June 23, 2022 11:00pm November 12, 2022 9:48amStart: 83-89-7667Dorwumttfsu Propion- Salmeterol (Advair Diskus) 250-50 mcg/dose blister with device Active 1 INH INHA LATION Twice daily 60 June 23, 2022 11:00pmgabapentin 300 mg oral capsule (6 sources)Anti-epileptic Agenttake 1 capsule by mouth every twenty-four hours Gabapentin 300 MG 1 capsule Orally Once a day Not-Taking/PRNhydrocortisone 10 mg/ml / neomycin 3.5 mg/ml / polymyxin b 96788 unt/ml otic solution (9 sources)Aminoglycoside Antibacterial, Polymyxin-class Antibacterial, CorticosteroidStart: 16-06-2373Dohtphcx-Polymyxin-HC 3.5-18917-9 4 drops into affected ear Otic Three times a day for 7 day(s) Mar, Not-Taking hydrOXYzine pamoate 25 mg oral capsule (20 sources)AntihistamineStart: 11-12-2022 End: 03-50-6989atiu 25 mg by mouth twice dailyHydroxyzine Pamoate Discontinued 25 MG PO Twice daily November 12, 2022 12:00am July 24, 2023 10:06amStart: 00-05-8954otul 1 capsule by mouth twice dailyhydrOXYzine Pamoate 25 MG Oral Capsule TAKE 1 CAPSULE TWICE DAILY. Quantity: 0 Refills: 0 Ordered: 11-Aug-2021 DO Start : 11-Aug-2021 Activetake 1 tablet by mouth every twelve hours hydrOXYzine HCl 25 MG 1 tab(s) p.o. bid Activeibuprofen 600 mg oral tablet (12 sources)Nonsteroidal Anti-inflammatory DrugStart: 74-26-8796wqiy 1 tablet by mouth four times dailyIbuprofen 600 MG Oral Tablet TAKE 1 TABLET 4 TIMES DAILY. Quantity: 0 Refills: 0 Ordered: 19-Jul-2021 DO Start : 16-Dec-2020 Active ketoconazole 20 mg/ml topical cream (14 sources)Azole AntifungalStart: 06-22-2022 End: 39-04-4096Bfoxtkptcpde Discontinued 1 APPLIC TOPICAL Daily June 22, 2022 12:00am November 12, 2022 10:49amlidocaine 0.05 mg/mg medicated patch (2 sources)Antiarrhythmic, Amide Local AnestheticStart: 03-24-2024 End: 14-92-8557qyplc 1 dose topically once dailyLidocaine Discontinued 1 PATCH TOPICAL Daily March 24, 2024 12:00am June 15, 2024 11:06amleave on most painful area for up to 12 hrsmetFORMIN hydrochloride 500 mg oral tablet (7 sources)BiguanideStart: 40-44-4363dxux 1 tablet by mouth twice daily at mealtimemetFORMIN HCl - 500 MG Oral Tablet TAKE 1 TABLET TWICE DAILY WITH FOOD. Quantity: 0 Refills: 0 Ordered: 28-Oct-2020 DO Start : 28-Oct-2020 Active Multivitamin preparation (12 sources)Start: 11-12-2022 End: 74-46-0988urpw 1 tablet by mouth once dailyMultivitamin Discontinued 1 TAB PO Daily November 12, 2022 12:00am October 09, 2023 9:19amStart: 11-12-2022 End: 96-72-9143tney 1 tablet by mouth once dailyMultivitamin Discontinued 1 TAB PO Daily November 11, 2022 11:00pm October 09, 2023 8:19amStart: 11-12-2022 take 1 tablet by mouth once dailyMultivitamin Active 1 TAB PO Daily November 11, 2022 11:00pmnabumetone 500 mg oral tablet (5 sources)Nonsteroidal Anti-inflammatory DrugStart: 01-02-2024 End: 80-80-7403dqfs 500 mg by mouth twice dailyNabumetone Discontinued 500 MG PO Twice daily January 02, 2024 12:00am June 15, 2024 11:06amnitroglycerin 0.4 mg sublingual tablet (3 sources)Nitrate VasodilatorStart: 24-35-4797Aqqgaumijwflv 0.4 MG Sublingual Tablet Sublingual PLACE 1 [...] mg oral tablet (20 sources)Start: 01-09-2024 End: 22-16-8943qrlo 30 mg by mouth twice dailyPyridostigmine [place] Discontinued 30 MG PO Twice daily January 09, 2024 12:00am June 15, 2024 1 1:20amStart: 08-28-2023 End: 13-07-4108xihr 30 mg by mouth three times dailyPyridostigmine [place] Discontinued 30 MG PO Three times daily August 28, 2023 10:51am June 15, 2024 11:07amStart: 11-12-2022 End: 70-63-6153chqv 60 mg by mouth twice dailyPyridostigmine [place] Discontinued 60 MG PO Twice daily 60 November 12, 2022 12:00am August 28, 2023 10:51am End: 32-42-0849xyjaqjhvowhlxi (Mestinon) 30 MG tablet every 8 (eight) hours. 12/23/2024 Discontinued (Therapy completed)regadenoson (Lexiscan) injection 0.4 mg (1 source)Start: 05-25-2024 End: .4 mg, intravenous, Once, On Sat05/25/24 at 1200, For 1 dose rosuvastatin calcium 40 mg oral tablet (20 sources)HMG-CoA Reductase InhibitorStart: 04-13-2021 End: 41-61-4133kaoy 40 mg by mouth once dailyRosuvastatin Discontinued 40 MG PO Daily November 12, 2022 12:00am July 24, 2023 10:09amSemaglutide (14 sources)Start: 06-22-2022 End: 07-27-6168opeaat 1 mg by subcutaneous injection two times weeklySemaglutide (Ozempic) 1 mg/dose (4 mg/3 mL) pen injector Discontinued 1 MG SUBCUT Twice a Week June 22, 2022 12:00am July 24, 2023 10:07am wednesdaysStart: 06-22-2022 End: 99-83-6401bzmvku 1 mg by subcutaneous injection two times weeklySemaglutide (Ozempic) 1 mg/dose (4 mg/3 mL) pen injector Discontinued 1 MG SUBCUT Twice a Week June 21, 2022 11:00pm July 24, 2023 9:07am wednesdaysStart: 54-16-6992xhqekj 1 mg by subcutaneous injection two times [...] indicated.tiotropium 0.018 mg inhalation powder (20 sources)AnticholinergicStart: 88-47-0213Ooyjicp HandiHaler 18 MCG Inhalation Capsule USE DIRECTED. Quantity: 0 Refills: 0 Ordered: 19-Sep-2020 DO Start : 19-Sep-2020 Active End: 45-60-1686kgkc 1 capsule by inhalation once dailySpiriva HandiHaler [address] 1 capsule into inhaler and inhale 1 (one) time each day at the same time. 04/06/2024 DiscontinuedSpiriva HandiHaler 18 MCG 1 capsule by inhaling the contents of the capsule using the HandiHaler device Once a day ActiveUbidecarenone-[place] 3-Vit E (Co H-46-Hfyikkv E-Fish Oil) 25-150-200 mg-mg-unit capsule (5 sources)Start: 01-02-2024 End: 23-87-6080sdnw 1 capsule by mouth once dailyUbidecarenone-[place] 3-Vit E (Co K-41-Jwfkpww E-Fish Oil) 25-150-200 mg-mg-unit capsule Discontinued1 CAP PO Daily January 02, 2024 12:00am June 15, 2024 11:08amStart: 16-30-1181icje 1 capsule by mouth once dailyUbidecarenone-[place] 3-Vit E (Co I-91-Dflcuxr E-Fish Oil) 25-150-200 mg-mg-unit capsule Active 1 CAPPO Daily January 02, 2024 12:00am Problems Active Problems Problem ClassificationProblemDateDocumented DateEpisodic/ChronicAcquired foot deformities (2 sources)Acquired valgus deformity of left ankle; Translations: [Valgus deformity, not elsewhere classified,left ankle]94-81-0279FqdyebzaLzlyt and unspecified renal failure (15 sources)Injury of kidney; Translations: [Acute kidney failure, unspecified] 96-83-9942TmongffvAsfbmrx dysrhythmias (12 sources)Palpitations; Translations: [Palpitations]Onset: 30-87-4155Zugalelk Chronic obstructive pulmonary disease and bronchiectasis (20 sources)Chronic obstructive lung disease; Translations: [Chronic obstructive pulmonary disease, unspecified]Onset: 01-30-2022 Resolved: 94-55-6898MtoxphcEbhpvyfj mellitus with complications (20 sources)Disorder due to type 2 diabetes mellitus; Translations: [Type 2 diabetes mellitus with unspecified complications]Onset: 01-30-2022 Resolved: 54-44-9896ScfbqeqXkrbtfsh mellitus without complication (12 sources)Diabetes mellitus; Translations: [Diabetes mellitus without mention of complication, type II or unspecified type, not stated as uncontrolled]Onset: 84-92-7586IipjjfgZogrilwtu of lipid metabolism (20 sources)Hyperlipidemia; Translations: [Other and unspecified hyperlipidemia] Onset: 01-30-2022 Resolved: 18-63-0562YrmwtufOnwaofpjdz disorders (18 sources)Acid reflux; Translations: [Gastro-esophageal reflux disease without esophagitis]ChronicEssential hypertension (20 sources)Benign essential hypertension; Translations: [Benign essential hypertension]Onset: 01-30-2022 Resolved: 38-75-0592MiczacnIzdyh and electrolyte disorders (15 sources)Acute hyponatremia; Translations: [Hypo-osmolality and hyponatremia] 85-91-3892BoefclaaMknhgu and vomiting (13 sources)Vomiting, unspecified; Translations: [Nausea and vomiting]Episodic Nonspecific chest pain (15 sources)Chest pain; Translations: [Chest pain, unspecified]Onset: 04-02-2024 EpisodicOsteoarthritis (20 sources)Osteoarthritis of left knee joint; Translations: [Unilateral primary osteoarthritis, left knee]Onset: 04-10-2022 Resolved: 41-17-2064PvtltumFryro connective tissue disease (20 sources)History of right total knee replacement; Translations: [Presence of right artificial knee joint]ChronicOther connective tissue disease (4 sources)Presence of right artificial knee joint; Translations: [Knee joint replacement]Onset: 04-10-2022 Resolved: 89-82-9100SajkxuvRybuz connective tissue disease (5 sources)History of total knee arthroplasty; Translations: [Presence of right artificial knee joint]30-64-7942YumfzihDourz connective tissue disease (2 sources)Pain in left foot; Translations: [Pain in left foot]12-23-2024 EpisodicOther disorders of stomach and duodenum (1 source)Gastroparesis syndrome; Translations: [Gastroparesis]06-15-2024 EpisodicOther disorders of stomach and duodenum (1 source)Gastroparesis; Translations: [Gastroparesis]49-37-5543MaehvankMabkw endocrine disorders (20 sources)Hypoglycemia; Translations: [Hypoglycemia, unspecified]ChronicOther endocrine disorders (4 sources)Hypoglycemia, unspecifiedChronicOther gastrointestinal disorders (1 source)Irritable bowel syndrome characterized by constipation; Translations: [Irritable bowel syndrome with constipation]68-67-3514SpygcjzAikqu gastrointestinal disorders (1 source)Irritable bowel syndrome; Translations: [Irritable bowel syndrome without diarrhea]12-59-8120BkeglkkUqemw gastrointestinal disorders (1 source)Irritable bowel syndrome with constipation; Translations: [Irritable bowel syndrome]24-05-2090YllrmcqBrcms gastrointestinal disorders (20 sources)Constipation; Translations: [Constipation, unspecified]EpisodicOther gastrointestinal disorders (6 sources)Constipation, unspecified; Translations: [Constipation, unspecified] Onset: 05-03-2022 Resolved: 29-78-9414DwlqkvtxVwqzb gastrointestinal disorders (20 sources)Dysphagia; Translations: [Dysphagia, unspecified]42-27-0370Deznswlr Other gastrointestinal disorders (2 sources)Dysphagia, unspecified; Translations: [Dysphagia, unspecified] EpisodicOther lower respiratory disease (9 sources)Dyspnea on exertion; Translations: [Shortness of breath]Onset: 253540-10-8860AntavtafGenhx nervous system disorders (20 sources)Chronic pain; Translations: [Other chronic pain]82-04-9759Hkscjkm Other nervous system disorders (14 sources)Other chronic pain; Translations: [Other chronic pain]ChronicOther nervous system disorders (2 sources)Right-sided piriformis syndrome; Translations: [Lesion of sciatic nerve, right lower limb]61-70-5560JeikyivIjfpr nervous system disorders (2 sources)Difficulty walking; Translations: [Difficulty in walking, not elsewhere classified]29-31-6833WptpqkjOsmgd non-traumatic joint disorders (2 sources)Pain in left kneeEpisodicOther non-traumatic joint disorders (2 sources)Acute ankle pain; Translations: [Pain in left ankle and joints of left foot]34-64-0777QfxyuhujZabxf non-traumatic joint disorders (2 sources)Instability of joint of left ankle; Translations: [Other instability, left ankle]66-00-1013WtacijesSonyi nutritional; endocrine; and metabolic disorders (20 sources)Body mass index 40+ - severely obese; Translations: [Morbid obesity] Onset: 857147-36-8977TrgtgmwXxygv nutritional; endocrine; and metabolic disorders (20 sources)Metabolic syndrome X; Translations: [Metabolic syndrome]ChronicOther nutritional; endocrine; and metabolic disorders (7 sources)Metabolic syndromeOnset: 01-30-2022 Resolved: 60-97-1485AjdsvscFtiql nutritional; endocrine; and metabolic disorders (8 sources)Body mass index (BMI) 50.0-59.9, adultOnset: 03-22-2022 Resolved: 04-45-2090VikgrmxJcsnc nutritional; endocrine; and metabolic disorders (20 sources)Obesity; Translations: [Obesity, unspecified]ChronicOther nutritional; endocrine; and metabolic disorders (2 sources)Obesity, unspecifiedChronicOther nutritional; endocrine; and metabolic disorders (2 sources)Body mass index (BMI) 45.0-49.9, adult; Translations: [Body mass index (BMI) 45.0-49.9, adult (Multi)]Onset: 86-17-1931SgpcahzIgtsu screening for suspected conditions (not mental disorders or infectious disease) (2 sources)Cardiovascular stress test abnormal; Translations: [Other nonspecific abnormal results of function study of cardiovascular system]EpisodicOther upper respiratory infections (1 source)Acute upper respiratory infection, unspecified; Translations: [ACUTE UP RESPIRATORY INFECTION UNS]Onset: 49-89-8961VwebunlhCbyoqpjko (except that caused by tuberculosis or sexually transmitted disease) (15 sources)Pneumonia; Translations: [Pneumonia, unspecified organism]06-22-2022 EpisodicResidual codes; unclassified (10 sources)Sleep apnea; Translations: [Unspecified sleep apnea]Onset: 294073-73-4668QdycegxIupxptxu codes; unclassified (20 sources)Obstructive sleep apnea syndrome; Translations: [Obstructive sleep apnea (adult) (pediatric)]ChronicResidual codes; unclassified (7 sources)Obstructive sleep apnea (adult) (pediatric)Onset: 01-30-2022 Resolved: 83-17-0058WnwasbdSihjydor codes; unclassified (2 sources)Sleep apnea, unspecified; Translations: [Sleep apnea, unspecified] Onset: 92-15-0773OjlyichGwhcwcst codes; unclassified (4 sources)Localized edema; Translations: [LOCALIZED EDEMA]Onset: 06-28-2022 EpisodicResidual codes; unclassified (2 sources)Bilateral lower limb edema; Translations: [Localized edema]12-23-2024 EpisodicSepticemia (except in labor) (15 sources)Sepsis; Translations: [Sepsis, unspecified organism]06-22-2022 EpisodicSpondylosis; intervertebral disc disorders; other back problems (20 sources)Inflammation of sacroiliac joint; Translations: [Sacroiliitis, not elsewhere classified]Onset: 26-01-3872UwhmvwyFccsctvwj-related disorders (12 sources)Smoker; Translations: [Tobacco use disorder]Onset: 32-40-5847Qqdcufn Comment on above:1.5 TO PPD;Thyroid disorders (20 sources)Hypothyroidism; Translations: [Hypothyroidism, unspecified]Onset: 01-30-2022 Resolved: 28-36-0569WsgnuenXeqsdtxzkjtu (3 sources)CONTACT W/AND (SUSP) EXPOS COVID-19; Translations: [CONTACT W/AND (SUSP) EXPOS COVID-19]Onset: 08-15-2022 Past or Other Problems Problem ClassificationProblemDateDocumented DateEpisodic/ChronicOther non- traumatic joint disorders (4 sources)Pain in right hip; Translations: [PAIN IN RIGHT HIP]Onset: 02-06-2022 EpisodicOther non-traumatic joint disorders (2 sources)Pain in right hip joint; Translations: [Pain in right hip]04-03-2024 EpisodicOther nutritional; endocrine; and metabolic disorders (1 source)Abnormal weight gainOnset: 01-30-2022 Resolved: 95-21-6974McxjecyvMjujyu media and related conditions (1 source)Otitis media, unspecified, bilateralOnset: 03-20-2022 Resolved: 28-03-7034YrmqurlwXiyhjtch codes; unclassified (20 sources)Sedentary lifestyle; Translations: [Other specified personal risk factors, not elsewhere classified]Onset: 527004-02-5994Dsewghpl Spondylosis; intervertebral disc disorders; other back problems (20 sources)Right cervical root neuropathy; Translations: [Radiculopathy, cervical region]Onset: 420688-34-3362AaekeohzJupjhjjdodox (1 source)CONTACT W/AND (SUSP) EXPOS COVID-19; Translations: [CONTACT W/AND (SUSP) EXPOS COVID-19]Onset: 76-17-8615Qkhqhyctkbjg (1 source)Low back pain, unspecified back pain laterality, unspecified chronicity, unspecified whether sciatica present M54.50 Results Test NameValueInterpretationReference RangeFacilityProvider Letteron 04-22-2025 Provider LetterProvider Letter April 22, 2025 AISHWARYA HARTMAN [address] [place] [id number] : 1960 Dear Aishwarya Hartman , We have been trying to reach you with no success. It is important that you return our call regarding your referral upon receiving this letter. Also, at the time of your call, please provide us with your current information. Thank you for your prompt attention to this matter. Sincerely, Newby Mohsen [facility] [phone] Pike Medical CenterXR lumbar spine 6V w bendingon 14-09-8384HA lumbar spine 6V w [facility] [place] [address] [place] [address] XRay Report Signed Patient: Aishwarya Hartman MR#: [id number] 2 : 1960 Acct:[id number] Age/Sex: 65 / F ADM Date: 02/04/25 Loc: XD Room: Type: [facility] Attending Dr: Linda Archer APRN Copies to: [...] Jr., D.O. 02/04/2025 1:22 PM Dictation Location: [place] [address] Transcribed By: [facility] 02/04/25 1322 Dictated By: Lorenzo Kendrick Jr, 02/04/25 1321 Signed By: 02/04/25 1322[facility] GroupXR Ankle - left 3 Viewson 98-75-2521Kidsvcv Result: AP Lateral and Oblique left ankle: No acute fracture, no dislocation Near bone on bone articulation of talus and tibia with subchondral sclerosis and subchondral cystic changes adjacent to articular surface. Degenerative spurring to medial and lateral aspects of talus. Ankle mortise is not symmetric with advanced arthritic changes. Impression: moderate to severe arthritis left ankle.[facility] HealthcareRadiology Study observation (narrative)[facility] HealthcareXR Foot - left 3 Viewson 62-33-7645Crqxhqn Result: AP, Lateral and oblique left foot: No acute fracture or dislocation Mild soft tissue prominence diffuse to foot Small calcaneal enthesophyte, notable degenerative changes at ankle joint. Impression: Moderate to severe ankle arthritis and small heel spur with no acute bony process.[facility] HealthcareRadiology Study observation (narrative)[facility] Heart Perfusion W stress and W radionuclide [place] 93-93-6280Cpkrxq Lexiscan Myoview cardiac perfusion stress test. No evidence of ischemia or myocardial infarction by perfusion imaging. Normal left ventricular systolic function, ejection fraction 73%. No change when compared to previous study. Signed by: Noman Henriquez 05/26/2024 5:32 PM Dictation workstation: [id number] By: Noman Henriquez and Giannuzzi Michael STUDY: MYOCARDIAL PERFUSION STRESS TEST WITH LEXISCAN Performing facility: [facility], [address] [place] [address], [address] Provider: Noman Henriquez MD PCP: Dr. Charley Saravia [facility] Supervising provider: Noman Henriquez MD INDICATION: Chest Pain; HISTORY: Gender: F; Age: 64 y/o ; Height: HT 147.3 cm cm; Weight: WT 103.874 kg kg. High Cholesterol; Diabetes; HTN; Palpitations; Chest Pain; SOB; COPD; Currently smoking. COMPARISON: Previous nuclear testing completed at [place]. ACCESSION NUMBER(S): [id number] ORDERING CLINICIAN: NOMAN HENRIQUEZ TECHNIQUE: TWO DAY [...] PERFUSION STRESS TEST WITH LEXISCAN Performing facility: [facility], [address] [place] [address], [address] Provider: Noman Henriquez MD PCP: Dr. Charley Saravia [facility] Supervising provider: Noman Henriquez MD INDICATION: Chest Pain; HISTORY: Gender: F; Age: 64 y/o ; Height: HT 147.3 cm cm; Weight: WT 103.874 kg kg. High Cholesterol; Diabetes; HTN; Palpitations; Chest Pain; SOB; COPD; Currently smoking. COMPARISON: Previous nuclear testing completed at [place]. ACCESSION NUMBER(S): [id number] ORDERING CLINICIAN: NOMAN HENRIQUEZ TECHNIQUE: TWO DAY [...] Noman Henriquez 05/26/2024 5:32 PM Dictation workstation: [id number] [facility] Work Phone: nm Heart Perfusion W stress and W radionuclide IV Ordered By: Noman Henriquez on 40-58-6324OplgsvdmlqKindred Healthcare Work Phone: nm Heart Perfusion W stress and W radionuclide [place] 31-07-7862Mxytymkqo Study observation (narrative)[facility] Work Phone: NUCLEAR STRESS TESTon 81-24-6927ANGFILC STRESS TEST Interpreted By: Noman Henriquez and Giannuzzi Michael STUDY: MYOCARDIAL PERFUSION STRESS TEST WITH LEXISCAN Performing facility: [facility], [address] [place] [address], [address] Provider: Noman Henriquez MD PCP: Dr. Charley Saravia [facility] Supervising provider: Noman Henriquez MD INDICATION: Chest Pain; HISTORY: Gender: F; Age: 64 y/o ; Height: HT 147.3 cm cm; Weight: WT 103.874 kg kg. High Cholesterol; Diabetes; HTN; Palpitations; Chest Pain; SOB; COPD; Currently smoking. COMPARISON: Previous nuclear testing completed at [place]. ACCESSION NUMBER(S): [id number] ORDERING CLINICIAN: NOMAN HENRIQUEZ TECHNIQUE: TWO DAY [...] Noman Henriquez 05/26/2024 5:32 PM Dictation workstation: [id number] [facility] Glucose Glucometer (BldC) [Mass/Vol]Ordered By: Jet Bansal on 08-54-7072Nhmckjd [Mass/Vol]113 mg/dLWilson Memorial HospitalComment on above:Random Glucose Reference Range is dependent on time and content of last meal. Glucose of more than 200 mg/dL in a nonstressed, ambulatory subject supports the diagnosis of Diabetes Mellitus.No Panel InformationOrdered By: Jet Bansal on 75-18-6882Odnehjz Glucose CommentGlu2: cleaned meterWilson Memorial HospitalAlbumin [Mass/volume] in Serum or PlasmaOrdered By: Sisi Saravia on 43-13-5195Qdwkahl [Mass/Vol]4.0 g/dL3.2-5.5[facility] Alkaline phosphatase [Enzymatic activity/volume] in Serum or PlasmaOrdered By: iSsi Saravia on 24-42-6931VNA [Catalytic activity/Vol]173 U/C38-03WsgxexqlrWilson Memorial HospitalAspartate aminotransferase [Enzymatic activity/volume] in Serum or PlasmaOrdered By: Sisi Saravia on 30-91-3986KYJ [Catalytic activity/Vol]24 U/S43-94EzxktbfzmWilson Memorial HospitalBasophils Auto (Bld) [#/Vol]Ordered By: Sisi Saravia on 55-41-5658Srsryijle (Bld) [#/Vol]0.1 10*3/uL 0.0-0.2F[facility] HealthcareBasophils/100 WBC Auto (Bld)Ordered By: Sisi Saravia on 98-99-6358Fmdoruwbv/100 WBC (Bld)0.9 %.Wilson Memorial HospitalBilirubin.total [Mass/volume] in Serum or PlasmaOrdered By: Sisi Saravia on 79-54-2429Fexpvccak [Mass/Vol]0.4 mg/dL0.3-1.2[facility] HealthcareCalcium [Mass/volume] in Serum or PlasmaOrdered By: Sisi Saravia on 70-99-9368Itsfytp [Mass/Vol]9.4 mg/dL8.2-10.2[facility] HealthcareCarbon dioxide, total [Moles/volume] in Serum or PlasmaOrdered By: Sisi Saravia on 08-99-1856YL9 [Moles/Vol]27.4 mmol/L22.0-30.0Wilson Memorial HospitalChloride [Moles/volume] in Serum or PlasmaOrdered By: Sisi Saravia on 83-89-3312Dmwmnzjv [Moles/Vol]103 mmol/J73-631KyvnwvofgWilson Memorial HospitalCholesterol [Mass/volume] in Serum or PlasmaOrdered By: Sisi Saravia on 18-09-5549Juxeldvppjz [Mass/Vol]181 mg/fH087-672AwqhsoldoWilson Memorial HospitalComment on above:Chol less than 200 mg/dl low riskChol 201-239 mg/dl borderline riskChol 240 mg/dl and greater high riskCholesterol in LDL Calc [Mass/Vol]Ordered By: Sisi Saravia on 38-95-9127Mfqarooamnp in LDL [Mass/Vol] 86 mg/dL0-100Wilson Memorial HospitalComment on above:LDL ATP III CLASSIFICATIONLDL less than 100 mg/dL OptimalLDL 100-129 mg/dL Near or above fiojaaiLOB640-790 mg/dL Borderline highLDL 160-189 mg/dL HighLDL greater than 189 mg/dL Very highCholesterol in VLDL Calc [Mass/Vol]Ordered By: Sisi Saravia on 90-49-4474Eefcxtfrpin in VLDL [Mass/Vol]45 mg/dLWilson Memorial HospitalCreatinine and Glomerular filtration rate.predicted panel (S/P/Bld)Ordered By: Sisi Saravia on 13-69-9804Qcwxtxbypa [Mass/Vol]0.88 mg/dL0.44-1.03 Wilson Memorial HospitalEosinophils Auto (Bld) [#/Vol]Ordered By: Sisi Saravia on 63-92-5709Zpoxcqiyrei (Bld) [#/Vol]0.1 10*3/uL0.0-0.45Wilson Memorial HospitalEosinophils/100 WBC Auto (Bld)Ordered By: Sisi Saravia on 11-08-6756Wxezsktaxyg/100 WBC (Bld)0.8 %.[facility] Erythrocyte distribution width Auto (RBC) [Ratio]Ordered By: Sisi Saravia on 23-02-5831Mgyjjiyzokc distribution width (RBC) [Ratio]15.1 %11.9-15.3FUK HealthcareEstimated glomerular filtration rate (GFR) non- AmericanOrdered By: Sisi Saravia on 54-40-7187XOV/1.73 sq M.predicted among non-blacks MDRD (S/P/Bld) [Vol rate/Area]> 60 mL/MinWilson Memorial HospitalGlobulin Calc (S) [Mass/Vol]Ordered By: Sisi Saravia on 10-11-2022 Globulin (S) [Mass/Vol]2.4 g/dLWilson Memorial HospitalGlucose [Mass/volume] in Serum or PlasmaOrdered By: Sisi Saravia on 02-22-5011Vpmakwo [Mass/Vol]109 mg/lP59-958VurthevdiWilson Memorial HospitalComment on above:ADA recommended reference rangeRandom Glucose Reference Range is dependent on time and content of last meal. Glucose of more than 200 mg/dL in a nonstressed, ambulatory subject supports the diagnosisof Diabetes Mellitus.Glucose mean value [Mass/volume] in Blood Estimated from glycated hemoglobinOrdered By: Sisi Saravia on 78-93-5839Bgmssrq glucose Estimated from glycated hemoglobin (Bld) [Mass/Vol]126 mg/dLWilson Memorial HospitalHematocrit Auto (Bld) [Volume fraction]Ordered By: Sisi Saravia on 53-27-5971Vbhayijxwg (Bld) [Volume fraction]42.4 %34.0-46.4[facility] HealthcareHemoglobin A1c percentageOrdered By: Sisi Saravia on 31-61-0853EdE9g (Bld) [Mass fraction]6.0 %4.3-5.6F[facility] HealthcareComment on above:Increased risk for diabetes: 5.7 - 6.4diabetes: >6.4glycemic control for adults with diabetes: &l t;7.0Hemoglobin [Mass/volume] in BloodOrdered By: Sisi Saravia on 10-11-2022 Hemoglobin (Bld) [Mass/Vol]14.0 g/dL11.8-15.4[facility] Iron [Mass/volume] in Serum or PlasmaOrdered By: Sisi Saravia on 73-76-1801Chyj [Mass/Vol]93 ug/xR17-679UslmtzvnvWilson Memorial HospitalLeukocytes [#/volume] corrected for nucleated erythrocytes in Blood by Automated counOrdered By: Sisi Saravia on 26-40-4808OUJ corrected for nucl RBC Auto (Bld) [#/Vol]6.4 10*3/uL3.8-11.6FUK HealthcareLymphocytes Auto (Bld) [#/Vol] Ordered By: Sisi Saravia on 16-22-3363Ydfkpfqmquu (Bld) [#/Vol]1.8 10*3/uL 1.00-4.8[facility] HospitalLymphocytes/100 WBC Auto (Bld)Ordered By: Sisi Saravia on 93-06-3976Wwndvrskofz/100 WBC (Bld)28.2 %.[facility] HospitalMCH Auto (RBC) [Entitic mass]Ordered By: Sisi Saravia on 40-25-1718CPD (RBC) [Entitic mass]29.9 pg24.7-34.3FUK HealthcareMCHC Auto (RBC) [Mass/Vol]Ordered By: Sisi Saravia on 53-72-6803XHAE (RBC) [Mass/Vol]33.1 g/dL32.0-35.0[facility] HospitalMCV Auto (RBC) [Entitic vol]Ordered By: Sisi Saravia on 47-13-2154XTQ (RBC) [Entitic vol]90.3 mC65-619QukmdjnvyWilson Memorial HospitalMonocytes Auto (Bld) [#/Vol] Ordered By: Sisi Saravia on 47-96-7443Mygdamosy (Bld) [#/Vol]0.4 10*3/uL0.0-0.8 [facility] HospitalMonocytes/100 WBC Auto (Bld)Ordered By: Sisi Saravia on 65-18-7418Esysdudpo/100 WBC (Bld)6.7 %.[facility] HospitalNeutrophils Auto (Bld) [#/Vol]Ordered By: Sisi Saravia on 10-11-2022 Neutrophils (Bld) [#/Vol]4.1 10*3/uL1.8-7.7[facility] Neutrophils/100 WBC Auto (Bld)Ordered By: Sisi Saravia on 10-11-2022 Neutrophils/100 WBC (Bld)63.4 %.[facility] HospitalNo Panel InformationOrdered By: Sisi Saravia on 99-83-1965Lrnhpygqr GFR ()> 60 mL/MinWilson Memorial HospitalComment on above:GFR estimated reference range: According to KDOQI guidelines, <60 ml/min/1.73m2 is sufficient todiagnose a patient with chronic kidney disease.Pharmacy Creatinine Clearance (ChemN/[facility] HospitalNucleated erythrocytes [Presence] in Blood by Automated countOrdered By: Sisi Saravia on 10-11-2022 Nucleated RBC Auto Ql (Bld)0.1 /100{WBC}0-0.5[facility] Platelet mean volume Auto (Bld) [Entitic vol]Ordered By: Sisi Saravia on 22-21-4849Ezcsomzq mean volume (Bld) [Entitic vol]9.0 fL6.3-10.7F[facility] HealthcarePlatelets Auto (Bld) [#/Vol]Ordered By: Sisi Saravia on 00-45-8663Qfhjktbzl (Bld) [#/Vol]225 10*3/xW111-393IqtrrbdgmWilson Memorial HospitalPotassium [Moles/volume] in Serum or PlasmaOrdered By: Sisi Saravia on 79-64-8316Rmspoylgb [Moles/Vol]4.2 mmol/L3.5-5.1F[facility] HealthcareProtein [Mass/volume] in Serum or PlasmaOrdered By: Sisi Saravia on 52-41-2754Xlquxhw [Mass/Vol]6.4 g/dL6.1-7.9[facility] HospitalRBC Auto (Bld) [#/Vol]Ordered By: Sisi Saravia on 81-76-6899ZXA (Bld) [#/Vol]4.70 10*6/uL3.60-5.00[facility] Hospitalerum or plasma alanine aminotransferase measurement without P-5'-P (enzymatic activiOrdered By: Sisi Saravia on 81-39-5834DTP No additional P-5'-P [Catalytic activity/Vol]38 U/L10-60 [facility] Hospitalerum or plasma albumin/globulin mass ratio Ordered By: Sisi Saravia on 97-19-0316Xltraaz/Globulin [Mass ratio]1.7 {ratio} [facility] Hospitalerum or plasma anion gap determinationOrdered By: Sisi Saravia on 52-81-9348Swvaw gap [Moles/Vol]9.8 mmol/L6.0-15.0[facility] Hospitalerum or plasma high density lipoprotein (HDL) cholesterol measurementOrdered By: Sisi Saravia on 28-17-9868Rcnhquylvez in HDL [Mass/Vol]50 mg/yN52-93KnkydrqopWilson Memorial HospitalComment on above:HDL CHOL ATP-III CLASSIFICATION Cardiovascular RiskHDL > or equal to 60 mg/dL LOWHDL < 40 mg/dL HIGHSerum or plasma total cholesterol/high density lipoprotein (HDL) cholesterol mass ratOrdered By: Sisi Saravia on 10-11-2022 Cholesterol.total/Cholesterol in HDL [Mass ratio]3.6 {ratio}<5.0[facility] Hospitalodium [Moles/volume] in Serum or PlasmaOrdered By: Sisi Saravia on 13-83-2490Nskgeu [Moles/Vol]136 mmol/W189-057YfqsbkhfwWilson Memorial HospitalTriglyceride [Mass/volume] in Serum or PlasmaOrdered By: Sisi Saravia on 60-22-6217Gtmcywmkxfcc [Mass/Vol]226 mg/nY29-225JpynerkyrWilson Memorial HospitalComment on above:TRIG ATP III CLASSIFICATIONTRIG less than 150 mg/dL NormalTRIG 150-199 mg/dL Borderline highTRIG 200-500 mg/dL High TRIG greater than 500 mg/dL Very highStandard traceable to the Center for Disease Co nrtrol and Prevention (CDC) test method.Urea nitrogen [Mass/volume] in Serum or PlasmaOrdered By: Sisi Saravia on 23-62-5718Wqrv nitrogen [Mass/Vol]8 mg/dL9 [facility] HospitalWBC Auto (Bld) [#/Vol]Ordered By: Sisi Rani on 86-81-5466VEF (Bld) [#/Vol]6.4 10*3/uL3.8-11.6F[facility] HealthcareCovid-19 PCR (CVDTBH)on 12-15-0056NXWB-CoV-2 (COVID-19) RNA COURTNEY+probe Ql (Unsp spec)Not detectedNormalNOT DETECTEDThe [facility]ica Memorial HospitalComment on above: Result Comment: This test is not yet approved or cleared by the [place] FDA. When there are no FDA-approved or cleared tests available, and other criteria are met, FDA can make tests available under an emergency access mechanism called an Emergency Use Authorization (EUA). The EUA for this test is supported by the Underwriting Director of Health and Human Service's (HHS's) declaration [...] consistent with SARS-CoV-2.Performed By: #### CVDTBH #### [facility] [address] [place] [address] Dr. Sahra Tan AND Margarita AGon 02-81-0722QJNEHJQAO A AGNegativeNormal NEGATIVE SEE COMMENTThe [facility]ica Memorial HospitalComment on above:Performed By: #### INFLUAB #### [facility] [address] [place] [address] Dr. Sahra Avila AGNegativeNormalNEGATIVE SEE COMMENTThe [facility] Memorial HospitalComment on above:Performed By: #### INFLUAB #### [facility] [address] [place] [address] Dr. Sahra DukeINTERNAL CONTROLSWithin Normal LimitsNormalWithin Normal Limits The [facility] HospitalComment on above:Performed By: #### INFLUAB #### [facility] [address] [place] [address] Dr. Sahra Craigice Visit (Cardiology)on 72-52-8389Nxepcx-up visit Diagnoses/Problems Assessed Chest pain (786.50) (R07.9) [...] we can help. You may also call [phone] Consulting GroupNOW for free resources and assistance.; Status:Complete; Done: [...] caf (more content not included)...NormalUH TouchworksTobacco Screening.on 36-21-6768Vxnb risk assessmenta) No falls within the last yearProv[facility] [employer] 250 DO Work Phone: Tobacco use status CPHSa) YesProv[facility] Hospital [employer] 250 DO Work Phone: Tobacco Screening.YesProv[facility] Hospital [employer] 250 DO Work Phone: us DAFNE DOP LEG BILon 85-50-6035RH DAFNE DOP LEG BELÉN EXAMINATION: US DAFNE [...] Electronically authenticated by: TIMOTHY RODGERS Date: 2022-06-28 14:28[facility] form neutrophils/100 WBC Manual cnt (Bld)Ordered By: Piper Tate on 86-19-7882Dmqd form neutrophils/100 WBC (Bld)10 %0-5FUK HealthcareBasophils Auto (Bld) [#/Vol]Ordered By: Piper Tate on 75-34-2238Pjzopnosk (Bld) [#/Vol]N/[facility] Basophils/100 WBC Auto (Bld)Ordered By: Piper Tate on 06-24-2022 Basophils/100 WBC (Bld)N/[facility] HospitalCreatinine and Glomerular filtration rate.predicted panel (S/P/Bld)Ordered By: Piper Tate on 33-72-7365Hanwhbyueu [Mass/Vol]0.75 mg/dL0.44-1.03[facility] HospitalEosinophils Auto (Bld) [#/Vol]Ordered By: Piper Tate on 06-24-2022 Eosinophils (Bld) [#/Vol]N/[facility] HospitalEosinophils/100 WBC Auto (Bld)Ordered By: Piper Tate on 62-31-2130Icfcplyivpb/100 WBC (Bld)N/A [facility] HospitalErythrocyte distribution width Auto (RBC) [Ratio]Ordered By: Piper Tate on 67-11-1358Sorzcjiktqi distribution width (RBC) [Ratio]14.5 %11.9-15.3F[facility] HealthcareEstimated glomerular filtration rate (GFR) non- AmericanOrdered By: Piper Tate on 25-17-7825VOV/1.73 sq M.predicted among non-blacks MDRD (S/P/Bld) [Vol rate/Area]> 60 mL/MinWilson Memorial HospitalGiant platelets/100 leukocytes [Ratio] in Blood by Manual countOrdered By: Piper Tate on 78-94-8569Hjmzm platelets/100 WBC Manual cnt (Bld) [Ratio]1 /100{WBC}[facility] HospitalGlucose Glucometer (BldC) [Mass/Vol]Ordered By: Piper Tate on 11-28-4698Jcqtnxy [Mass/Vol]116 mg/dLWilson Memorial HospitalComment on above:Random Glucose Reference Range is dependent on time and content of last meal. Glucose of more than 200 mg/dL in a nonstressed, ambulatory subject supports the diagnosis of Diabetes Mellitus.Hematocrit Auto (Bld) [Volume fraction]Ordered By: Piper Tate on 18-67-4036Uegngqsimy (Bld) [Volume fraction]35.7 %34.0-46.4FUK HealthcareHemoglobin [Mass/volume] in BloodOrdered By: Piper Tate on 59-27-5673Iafjygztup (Bld) [Mass/Vol]11.7 g/dL11.8-15.4F[facility] HealthcareLaboratory - Hematology and Cell countsOrdered By: Piper Tate on 56-41-3545Sjpyfgotb RBC/100 WBC (Bld) [Ratio]0.0 %0-0.5FUK HealthcareLeukocytes [#/volume] in Blood by Automated countOrdered By: Piper Tate on 06-24-2022 WBC (Bld) [#/Vol]15.9 10*3/uL4.5-11.0[facility] Lymphocytes Auto (Bld) [#/Vol]Ordered By: Piper Tate on 06-24-2022 Lymphocytes (Bld) [#/Vol]N/AFUK HealthcareLymphocytes/100 WBC Auto (Bld)Ordered By: Piper Tate on 46-63-5307Glzrnqxegmx/100 WBC (Bld)N/A [facility] HospitalLymphocytes/100 WBC Manual cnt (Bld)Ordered By: Piper Tate on 33-96-6424Wkwfkhpkmcy/100 WBC (Bld)8 %18-42[facility] CenterH Auto (RBC) [Entitic mass]Ordered By: Piper Tate on 65-88-2159NHC (RBC) [Entitic mass]29.7 pg24.7-34.3FUK HealthcareMCHC Auto (RBC) [Mass/Vol]Ordered By: Piper Tate on 87-05-8146OFXN (RBC) [Mass/Vol]32.7 g/dL32.0-35.0[facility] HospitalMCV Auto (RBC) [Entitic vol]Ordered By: Piper Tate on 99-43-5222UYA (RBC) [Entitic vol]91.0 bC24-330CwczphqgzWilson Memorial HospitalMonocytes Auto (Bld) [#/Vol] Ordered By: Piper Tate on 13-28-5346Ypoaoamuk (Bld) [#/Vol]N/[facility] HospitalMonocytes/100 WBC Auto (Bld)Ordered By: Piper Tate on 37-55-0470Ffvkqecvz/100 WBC (Bld)N/[facility] Myelocytes/100 WBC Manual cnt (Bld)Ordered By: Piper Tate on 06-24-2022 Myelocytes/100 WBC (Bld)3 %0-0[facility] HospitalNeutrophils Auto (Bld) [#/Vol]Ordered By: Piper Tate on 48-10-7774Plupqfdsxxv (Bld) [#/Vol] N/[facility] HospitalNeutrophils/100 WBC Auto (Bld)Ordered By: Piper Tate on 40-46-0827Fxhuipypqwx/100 WBC (Bld)N/[facility] HospitalNo Panel InformationOrdered By: iPper Tate on 06-24-2022 Estimated GFR ()> 60 mL/MinWilson Memorial Hospital Comment on above:GFR estimated reference range: According to KDOQI guidelines, <60 ml/min/1.73m2 is sufficient todiagnose a patient with chronic kidney disease.Pharmacy Creatinine Clearance (Chem92.05[facility] HospitalPlatelet adequacy [Presence] in Blood by Light microscopyOrdered By: Piper Tate on 51-90-8605Ycwzznimb LM Ql (Bld)NormalNormalWilson Memorial HospitalPlatelet mean volume Auto (Bld) [Entitic vol]Ordered By: Piper Tate on 90-69-0414Hbptqsxt mean volume (Bld) [Entitic vol]9.7 fL6.3-10.7 [facility] HospitalPlatelet morphology finding [Identifier] in BloodOrdered By: Piper Tate on 77-45-0987Oalimubo morphology finding Nom (Bld)N/AFUK HealthcarePlatelets Auto (Bld) [#/Vol]Ordered By: Piper Tate on 48-78-3955Atcpotccs (Bld) [#/Vol]219 10*3/vN180-553QfvwgdmxpWilson Memorial HospitalPlatelets Large [Presence] in Blood by Light microscopy Ordered By: Piper Tate on 53-07-8987Rlxgalzne Large LM Ql (Bld)Slight [facility] HospitalPromyelocytes/100 WBC Manual cnt (Bld)Ordered By: Piper Tate on 30-79-2641Aaobjnjhizytq/100 WBC (Bld)1 %0-0[facility] HospitalRB Auto (Bld) [#/Vol]Ordered By: Piper Tate on 72-99-7394XPO (Bld) [#/Vol]3.92 10*6/uL3.60-5.00[facility] HospitalRB morphologyOrdered By: Piper Tate on 32-74-9987VXR morphology finding Nom (Bld)NormalBucyrus Community Hospitalegmented neutrophils/100 WBC Manual cnt (Bld)Ordered By: Piper Tate on 06-24-2022 Segmented neutrophils/100 WBC (Bld)78 %50-70[facility] Serum or plasma anion gap determinationOrdered By: Piper Tate on 06-24-2022 Anion gap [Moles/Vol]10.8 mmol/L6.0-15.0[facility] Hospitalerum or plasma calcium measurement (mass/volume)Ordered By: Piper Tate on 41-72-9553Twckgel [Mass/Vol]8.9 mg/dL8.2-10.2[facility] Serum or plasma chloride measurement (moles/volume)Ordered By: Piper Tate on 41-14-7116Yzqcglby [Moles/Vol]107 mmol/X91-585AosjfsrhqBucyrus Community Hospitalerum or plasma glucose measurement (mass/volume)Ordered By: Piper Tate on 22-81-8940Etnnxms [Mass/Vol]129 mg/uV52-238EwmdfjhetWilson Memorial HospitalComment on above:ADA recommended reference rangeRandom Glucose Reference Range is dependent on time and content of last meal. Glucose of more than 200 mg/dL in a nonstressed, ambulatory subject supports the diagnosisof Diabetes Mellitus.Serum or plasma potassium measurement (moles/volume)Ordered By: Piper Tate on 65-92-7644Vapvfgnji [Moles/Vol]4.5 mmol/L3.5-5.1FWestern Reserve Hospitalerum or plasma sodium measurement (moles/volume)Ordered By: Piper Tate on 90-00-3503Lrindz [Moles/Vol]135 mmol/U182-523JqtqtwzisBucyrus Community Hospitalerum or plasma total carbon dioxide measurement (moles/volume)Ordered By: Piper Tate on 36-99-7357FV3 [Moles/Vol]21.7 mmol/L22.0-30.0[facility] Hospitalerum or plasma urea nitrogen measurement (mass/volume)Ordered By: Piper Tate on 76-76-9907Moyn nitrogen [Mass/Vol]16 mg/dL9-23[facility] HospitalABO and Rh group post transfusion reaction Nom (Bld)Ordered By: Piper Tate on 06-23-2022 Microscopic observation Gram stain Nom (Unsp spec)[facility] HospitalBody fluid albumin measurement (mass/volume)Ordered By: Milan Quintanilla on 44-12-7461Fxnwxcr (Body fld) [Mass/Vol]3.3 g/dL3.2-5.5FUK HealthcareCOVID-19 Positive/NegativeOrdered By: Milan Quintanilla on 06-22-2022 SARS-CoV-2 (COVID-19) N gene COURTNEY+probe Ql (Resp)NegativeNegativeWilson Memorial HospitalComment on above:Testing for SARS-CoV-2 by RT-PCRThis test was developed and its performance characteristics determined by [employer]) and validated at the [facility]. This test has not been FDA cleared [...] on 06-22-2022 SARS-CoV+SARS-CoV-2 (COVID-19) Ag IA.rapid Ql (Resp)NegativeNegativeWilson Memorial HospitalComment on above:This is a duplicate Janet SARS Antigen (MERRY) result to be used for statistical tracking purpose only.Globulin Calc (S) [Mass/Vol]Ordered By: Milan Quintanilla on 15-60-3641Rarsaseh (S) [Mass/Vol]3.9 g/dL [facility] HospitalLaboratory - Chemistry and Chemistry - challengeOrdered By: Milan Quintanilla on 69-35-1137Xvtouby [Moles/Vol]1.9 mmol/L 0.5-2.2FUK HealthcareNatriuretic peptide B (Bld) [Mass/Vol] 104.0 pg/mL5-100Firsentara [facility] CenterLaboratory - Chemistry and Chemistry - challengeOrdered By: Piper Tate on 65-48-4215Eqidptjhr [Mass/Vol]1.8 mg/dL1.6-2.6F[facility] HealthcareProtein [Mass/volume] in Serum or PlasmaOrdered By: Milan Quintanilla on 93-59-1235Vasegfj [Mass/Vol]7.2 g/dL6.1-7.9[facility] Hospitalerum or plasma alanine aminotransferase measurement without P-5'-P (enzymatic activiOrdered By: Milan Quintanilla on 84-58-6513TBO No additional P-5'-P [Catalytic activity/Vol]33 U/L10-60 [facility] Hospitalerum or plasma albumin/globulin mass ratio Ordered By: Milan Quintanilla on 44-74-8598Xcdkdlh/Globulin [Mass ratio]0.8 {ratio} [facility] Hospitalerum or plasma alkaline phosphatase measurement (enzymatic activity/volume)Ordered By: Milan Quintanilla on 43-63-3281RIV [Catalytic activity/Vol]148 U/M27-98DatmuxoigBucyrus Community Hospitalerum or plasma aspartate aminotransferase measurement (enzymatic activity/volume)Ordered By: Milan Quintanilla on 12-22-5337IPH [Catalytic activity/Vol]17 U/B25-06QrndoronnBucyrus Community Hospitalerum or plasma total bilirubin measurement (mass/volume) Ordered By: Milan Quintanilla on 85-75-9359Wqqqcqymb [Mass/Vol]1.3 mg/dL0.3-1.2 [facility] HospitalComment on above:Samples from patients who have taken Naproxen have shown spurious elevation in Total Bilirubin levels. A metabolite of Naproxen, O-desmethylnaproxen, has been shown to interfere with the Lorene-Berto method for measuring Total Bilirubin.Troponin I.cardiac [Mass/volume] in Serum or Plasma by High sensitivity methodOrdered By: Milan Quintanilla on 63-91-0003Tjgnefqi I.cardiac High sensitivity method [Mass/Vol]13 pg/mL 0-15[facility] HospitalAlbumin [Mass/volume] in Serum or Plasma Ordered By: Erika Garibay on 42-20-8823Kinxgxu [Mass/Vol]4.3 g/dL3.2-5.5 [facility] HospitalBasophils Auto (Bld) [#/Vol]Ordered By: Erika Garibay on 34-91-9736Qkljpmjra (Bld) [#/Vol]0.1 10*3/uL0.0-0.2F[facility] HealthcareBasophils/100 WBC Auto (Bld)Ordered By: Erika Garibay on 19-43-0951Umytagvhq/100 WBC (Bld)1.4 %.[facility] HospitalBlood hemoglobin measurement (mass/volume)Ordered By: Erika Garibay on 05-10-2022 Hemoglobin (Bld) [Mass/Vol]14.0 g/dL11.8-15.4[facility] Blood leukocytes automated count (number/volume)Ordered By: Erika Graibay on 06-47-2687WZC (Bld) [#/Vol]7.7 10*3/uL4.5-11.0[facility] HospitalC reactive protein [Mass/volume] in Serum or PlasmaOrdered By: Erika Garibay on 38-34-4189UAD [Mass/Vol]1.2 mg/dL0.0-1.0[facility] HospitalCT biopsyOrdered By: Erika Garibay on 16-79-4605WQ biopsy6.3 U/L3.3-10.3FUK HealthcareComment on above:Performed at: - [facility] [id number] Director: Checo Judge PhD, Phone: [phone] kinase [Enzymatic activity/volume] in Serum or PlasmaOrdered By: Erika Garibay on 81-74-7118RP [Catalytic activity/Vol]61 U/M69-332YwiitvoceWilson Memorial HospitalCreatinine and Glomerular filtration rate.predicted panel (S/P/Bld)Ordered By: Erika Garibay on 84-88-5989Zhquiiapnw [Mass/Vol]0.93 mg/dL 0.44-1.03[facility] HospitalEosinophils Auto (Bld) [#/Vol]Ordered By: Erika Garibay on 27-57-3729Znuzyneyvjf (Bld) [#/Vol]0.2 10*3/uL0.0-0.45 [facility] HospitalEosinophils/100 WBC Auto (Bld)Ordered By: Erika Garibay on 93-51-2644Aslveqxxmqf/100 WBC (Bld)3.1 %.[facility] HospitalErythrocyte distribution width Auto (RBC) [Ratio]Ordered By: Erika Garibay on 42-55-3868Fzmuuamxiry distribution width (RBC) [Ratio]15.6 % 11.9-15.3FUK HealthcareErythrocyte sedimentation rate by Photometric methodOrdered By: Erika Garibay on 22-78-9693MXU Photometric method (Bld) [Velocity]34 mm/hr0-29[facility] HospitalEstimated glomerular filtration rate (GFR) non- AmericanOrdered By: Erika Garibay on 82-12-1812VKG/1.73 sq M.predicted among non-blacks MDRD (S/P/Bld) [Vol rate/Area]> 60 mL/MinWilson Memorial HospitalGlobulin Calc (S) [Mass/Vol]Ordered By: Erika Garibay on 59-07-4315Swimbmac (S) [Mass/Vol]2.8 g/dLWilson Memorial HospitalHematocrit Auto (Bld) [Volume fraction] Ordered By: Erika Garibay on 57-41-1522Rbbbrztxed (Bld) [Volume fraction]42.4 % 34.0-46.4F[facility] HealthcareLaboratory - Hematology and Cell countsOrdered By: Erika Garibay on 75-77-6670Gfffuzxky RBC/100 WBC (Bld) [Ratio]0.2 %0-0.5FUK HealthcareLymphocytes Auto (Bld) [#/Vol] Ordered By: Erika Garibay on 80-05-7261Bvcycbakvke (Bld) [#/Vol]2.1 10*3/uL 1.00-4.8[facility] HospitalLymphocytes/100 WBC Auto (Bld)Ordered By: Erika Garibay on 17-67-6978Cgbuaziunyn/100 WBC (Bld)27.2 %.[facility] CenterH Auto (RBC) [Entitic mass]Ordered By: Erika Garibay on 97-50-3290KAZ (RBC) [Entitic mass]30.6 pg24.7-34.3FUK HealthcareMCHC Auto (RBC) [Mass/Vol]Ordered By: Erika Garibay on 17-27-8540JGTQ (RBC) [Mass/Vol]32.9 g/dL32.0-35.0[facility] HospitalMCV Auto (RBC) [Entitic vol]Ordered By: Erika Garibay on 83-11-4765WNL (RBC) [Entitic vol]92.8 pP40-406MoekgpwuvWilson Memorial HospitalMonocytes Auto (Bld) [#/Vol] Ordered By: Erika Garibay on 47-46-9613Cshuxfpjb (Bld) [#/Vol]0.8 10*3/uL 0.0-0.8[facility] HospitalMonocytes/100 WBC Auto (Bld)Ordered By: Erika Garibay on 97-23-7836Fgzdnfudn/100 WBC (Bld)10.0 %.[facility] HospitalNeutrophils Auto (Bld) [#/Vol]Ordered By: Erika Garibay on 58-72-4700Dvtqprsdlnq (Bld) [#/Vol]4.5 10*3/uL1.8-7.7FUK HealthcareNeutrophils/100 WBC Auto (Bld)Ordered By: Erika Garibay on 05-10-2022 Neutrophils/100 WBC (Bld)58.3 %.[facility] HospitalNo Panel InformationOrdered By: Erika Garibay on 14-05-9821Xapq-Nuclear Antibody Comment 2See comment.[facility] HospitalComment on above:For more information about Hep-2 cell patterns useANApatterns.org, the official website for the InternationalConsensus on Antinuclear Antibody (ZUNILDA) Patterns (ICAP). A positive ZUNILDA result may occur in healthy individuals (lowtiter) or be associated with a variety of diseases. Seeinterpretation chart which is not all inclusive:Pattern Antigen Detected Suggested Disease Association Homogeneous DNA(ds,ss), SLE - High titers Nucleosomes, Histones Drug-induced SLE Speckled Sm, PNEUMATIC TESTER, SCL-70, SLE,MCTD,PSS (diffuse form), SS-A/SS-B Sjogrens Nucleolar SCL-70, PM-1/SCL Hightiters Scleroderma, PM/DM Centromere Centro mere PSS (limited form) w/Crest syndrome variable Nuclear Dot Sp100,e26-luyptt Primary Biliary Cirrhosis Nuclear GP210, Primary Biliary CirrhosisMembrane emily A,B,C Performed at: [facility] [id number] Director: Checo Judge PhD, Phone: [phone] Estimated GFR ()> 60 mL/MinWilson Memorial Hospital Comment on above:GFR estimated reference range: According to KDOQI guidelines, <60 ml/min/1.73m2 is sufficient todiagnose a patient with chronic kidney disease.Pharmacy Creatinine Clearance (ChemN/[facility] Platelet mean volume Auto (Bld) [Entitic vol]Ordered By: Erika Garibay on 64-75-1522Yiuttliw mean volume (Bld) [Entitic vol]9.4 fL6.3-10.7FUK HealthcarePlatelets Auto (Bld) [#/Vol]Ordered By: Erika Garibay on 41-53-4812Tdmjtpnot (Bld) [#/Vol]295 10*3/vX986-123GuqeofjqcWilson Memorial HospitalProtein [Mass/volume] in Serum or PlasmaOrdered By: Erika Garibay on 98-70-6835Eqzmfbp [Mass/Vol]7.1 g/dL6.1-7.9[facility] HospitalRBC Auto (Bld) [#/Vol]Ordered By: Erika Garibay on 64-70-9788RSQ (Bld) [#/Vol]4.57 10*6/uL3.60-5.00[facility] Hospitalerum homogeneous pattern antinuclear antibody (ZUNILDA) titerOrdered By: Erika Garibay on 05-10-2022 Homogenous nuclear Ab pattern (S) [Titer]1:80.[facility] Comment on above:ICAP nomenclature: AC-1Serum nuclear antibody titerOrdered By: Erika Garibay on 53-63-1899Ojoodcd Ab (S) [Titer]Positive.[facility] HospitalComment on above:Negative <1:80 Borderline 1:80 Positive >1:80 Serum or plasma alanine aminotransferase measurement without P-5'-P (enzymatic activiOrdered By: Erika Garibay on 30-61-4783KJH No additional P-5'-P [Catalytic activity/Vol]82 U/B14-66JfdjgehjpBucyrus Community Hospitalerum or plasma albumin/globulin mass ratioOrdered By: Erika Garibay on 05-10-2022 Albumin/Globulin [Mass ratio]1.5 {ratio}[facility] Hospitalerum or plasma alkaline phosphatase measurement (enzymatic activity/volume)Ordered By: Erika Garibay on 04-80-6851LZQ [Catalytic activity/Vol]172 U/L32-92 [facility] Hospitalerum or plasma anion gap determinationOrdered By: Erika Garibay on 17-09-8323Pxaoz gap [Moles/Vol]16.3 mmol/L6.0-15.0 [facility] Hospitalerum or plasma aspartate aminotransferase measurement (enzymatic activity/volume)Ordered By: Erika Garbiay on 05-10-2022 AST [Catalytic activity/Vol]39 U/S04-57SyvtztmpjBucyrus Community Hospitalerum or plasma calcium measurement (mass/volume)Ordered By: Erika Garibay on 05-10-2022 Calcium [Mass/Vol]10.2 mg/dL8.2-10.2FWestern Reserve Hospitalerum or plasma chloride measurement (moles/volume)Ordered By: Erika Garibay on 68-41-7584Ofmsadui [Moles/Vol]98 mmol/F53-009WaxwdsfdfWilson Memorial Hospital Serum or plasma glucose measurement (mass/volume)Ordered By: Erika Garibay on 73-55-8134Arapeai [Mass/Vol]100 mg/cU49-024AvifvfhxyWilson Memorial Hospital Comment on above:ADA recommended reference range Random [...] potassium measurement (moles/volume)Ordered By: Erika Garibay on 17-63-1766Hzgvdyxyc [Moles/Vol]4.0 mmol/L3.5-5.1FWestern Reserve Hospitalerum or plasma sodium measurement (moles/volume)Ordered By: Erika Garibay on 07-12-1524Zekaan [Moles/Vol]139 mmol/I464-449VjaxomkpnBucyrus Community Hospitalerum or plasma total bilirubin measurement (mass/volume) Ordered By: Erika Garibay on 45-60-2709Coqevavot [Mass/Vol]0.5 mg/dL0.3-1.2 [facility] Hospitalerum or plasma total carbon dioxide measurement (moles/volume)Ordered By: Erika Garibay on 26-36-3188QD2 [Moles/Vol]28.7 mmol/L22.0-30.0[facility] Hospitalerum or plasma urea nitrogen measurement (mass/volume)Ordered By: Erika Garibay on 05-10-2022 Urea nitrogen [Mass/Vol]10 mg/dL9-[facility] Hospitalerum or plasma uric acid measurement (mass/volume)Ordered By: Erika Garibay on 84-11-6451Plkqm [Mass/Vol]5.5 mg/dL2.6-7.2[facility] HealthcareTS DL <= 0.005 mIU/L QnOrdered By: Erika Garibay on 36-68-5764XWM Qn4.15 m[IU]/L 0.45-5.33[facility] HospitalThyroxine (T4) free [Mass/volume] in Serum or PlasmaOrdered By: Erika Garibay on 19-97-6058Awsp T4 [Mass/Vol]0.92 ng/dL0.61-1.12[facility] HospitalA1C HEMOGLOBINon 61-45-4447FkI8a (Bld) [Mass fraction]5.7 %[employer] Other HbA1c (Bld) [Mass fraction]on 53-10-7040O6A HEMOGLOBIN [employer] Other 551-3551XPZU-HsD-2 (COVID-19) RNA COURTNEY+probe Ql (Resp)on 74-56-4372UYUU-CoV-2 (COVID-19) RNA COURTNEY+probe Ql (Unsp spec)NegativeNortLysanda Other ANA by IFAon 47-91-7434Fhyphmrjcka Antibodies, IFA NegativeNormalThe [facility] HospitalComment on above:Result Comment: Negative <1:80 Borderline 1:80 Positive >1:80 ICAP nomenclature: AC-0 For more information about Hep-2 cell patterns use ANApatterns.org, the official website for the International Consensus on Antinuclear Antibody (ZUNILDA) Patterns (ICAP).Performed By: #### ANAIFA #### [facility] [address] [place] [address] Dr. Sahra DukeANTISTREPTOLYSIN O AB (ASO)on 41-85-8108Hnznqabewahzzyin O Ab92.6 IU/mLNormal0.0-200.0The [facility] HospitalComment on above:Performed By: #### ASOAB #### [facility] [address] [place] [address] Dr. Sahra DukeRHEUMATOID FACTORon 94-01-8881CF Latex Turbid.<10.0Normal<14.0The [facility] HospitalComment on above:Performed By: #### RF #### [facility] [address] [place] [address] Dr. Sahra DukeCRPon 22-18-5505HJU [Mass/Vol]mg/LNormal<=1.0The [facility] HospitalComment on above:Performed By: #### URIC, CRP #### [facility] [address] [place] [address] Dr. Sahra DukeURIC ACID SERUMon 03-94-8819Wuwnt [Mass/Vol]6.6 mg/dLCritically high2.6-6.0The [facility] HospitalComment on above:Performed By: #### URIC, CRP #### [facility] [address] [place] [address] Dr. Sahra Malone Visit (Cardiology)on 99-61-9391Scleng-up visit Diagnoses/Problems Assessed Chest pain (786.50) (R07.9) [...] we can help. You may also call 5-506-HRGGNOW for free resources and assistance.; Status:Complete - [...] (more content not included)... NormalUH TouchworksTobacco Screening.on 55-86-3305Oukvf depression screening assessmentNoProv[facility] [employer] DO Work Phone: Fall risk assessmenta) No falls within the last year [facility] [employer] DO Work Phone: Tobacco use status CPHSb) [facility] [employer] [facility] Work Phone: Office Visit (Cardiology)on 25-17-7005Rzgpox-up visit Diagnoses/Problems Assessed Chest pain (786.50) (R07.9) [...] 25 MG Oral (more content not included)...NormalUH iLike Tobacco Screening.on 99-82-5793Dzmetvt use status CPHSa) Yes-[facility] [place] [address] DO Work Phone: Vital Signs Date TimeVital SignValuePerforming TlvmezmsdDkctljaz26-42-5470 09:15-0400Body .3 cmAnora Wan DPM Work Phone: [facility] HospitalRfqwkjhscu62-88-6779 09:15-0400Body mass index (BMI) [Ratio]51.25 kg/s3EambckuSp Wan DPM Work Phone: [facility] HospitalPsgodykqwa94-61-9942 09:15-0400Body .22 kgSp Brooksher DPM Work Phone: [facility] HospitalUbnsbzepit49-44-9230 14:32-0400Body mass index (BMI) [Ratio]51.25 kg/y2Pjolsvmpbia Hector DO Work Phone: noMer[facility] Hospital WashingtonTaifwsqpel56-70-1327 14:32-0400Body uphqqv561.22 kgChristopher Hector DO Work Phone: noMercy Hospital WashingtonLwohvilmpw69-54-0298 14:32-0400Diastolic blood vsadxrfi06 mm[Hg]Christopher Hector DO Work Phone: [facility] HospitalCiiczqwpfq08-20-8678 14:32-0400Heart rate99 /min Christjeremiah Young DO Work Phone: [facility] HospitalIjsbmvmvzo53-29-0481 14:32-5987TsH4% (BldA) [Mass fraction]91 %Ashley Young DO Work Phone: [facility] HospitalMjhvsecxkj18-29-2677 14:32-0400Systolic blood mvletxrw174 mm[Hg]Ashley Young DO Work Phone: [facility] HospitalAkedwolndi36-34-2537 10:30-0400Body fxjzim678.3 cmMaiftikhar Orosco PA Work Phone: [facility] HospitalTbnvdevhye29-19-2972 10:30-0400Body mass index (BMI) [Ratio]50.16 kg/q2Rrhbeosiftikhar Orosco PA Work Phone: [facility] HospitalFvomrddxfi60-51-2503 10:30-0400Body .86 kgMattkimberly Orosco PA Work Phone: [facility] HospitalRpcycuzinq86-55-5418 11:02-0400Body upvcie240.32 cmNP-Mira Saravia Work Phone: 7(260)432-[address] [place], [place] 1622210-28-2024 11:02-0400 Body mass index (BMI) [Ratio]48 kg/m2GEOFFREY-Mira Saravia Work Phone: 5(207)020-[address] [place], [place] 1622210-28-2024 11:02-0400 Body oxvgig471.32 kgNP-Mira Saravia Work Phone: 1(879)921-[address] [place], [place] 1622210-07-2024 11:41-0400 Diastolic blood mkxyduvg43 mm[Hg]Arianna [address] [place] [address] 05-25-2024 11:41-0400Heart rate77 /minEly [address] [place] [address] 05-25-2024 11:41-0400Systolic blood mm[Hg]Arianna [address] [place], [place] 6041008-15-2024 15:05-0400Body ypjtrs737.3 cmNoman Henriquez MD Work Phone: 1([phone] [place], [place] 7941308-15-2024 15:05-0400 Body mass index (BMI) [Ratio]47.86 kg/p3YhwqqzxNoman Henriquez MD Work Phone: 1(500)[address]08-15-2024 15:05-0400 Body opkshv320.87 kgNoman Henriquez MD Work Phone: 1(926)[address]08-15-2024 15:05-0400 Diastolic blood piwcywty97 mm[Hg]Noman Henriquez MD Work Phone: 1(938)[address]08-15-2024 15:05-0400 Heart rate88 /minNoman Henriquez MD Work Phone: 1(399)[address]08-15-2024 15:05-0400 Systolic blood nvlomixv771 mm[Hg]Noman Henriquez MD Work Phone: 1(879)[address]08-06-2024 17:46-0400 Body jdlevj586.32 cmNP-C Sisi Saravia Work Phone: 1(636)055-[address] [place], [place] 1622208-06-2024 17:46-0400 Body ifwnjhjpxqy16.7 [degF]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-C Sisi Saravia Work Phone: 1(008)323-[address] [place], [place] 1622208-06-2024 17:46-0400 Body .32 kgNP-C Sisi Saravia Work Phone: 1(499)[address] [place], [place] 1622208-06-2024 17:46-0400 Diastolic blood uauaxufo11 mm[Hg]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-C Sisi Saravia Work Phone: [facility]08-06-2024 17:46-0400 Heart rate95 /minNP-C Sisi Saravia Work Phone: 1(815)993-[address] [place], [place] 1622208-06-2024 17:46-0400 Respiratory rate20 /minNP-C Sisi Saravia Work Phone: 1(867)483-[address] [place], [place] 1622208-06-2024 17:46-0400 SaO2% (BldA) [Mass fraction]98 %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-C Sisi Leyvamer Work Phone: 1(328)483-[address] [place], [place] 1622208-06-2024 17:46-0400 Systolic blood sxulirop106 mm[Hg]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-C Sisibecka Leyvamer Work Phone: 1(807)[address]05-23-2024 14:55-0400 Body mbyusk821.59 cmNP-C Sisi Leyvamer Work Phone: 1(696)[address] [place], [place] 9264805-23-2024 14:55-0400 Body mass index (BMI) [Ratio]48.9 kg/m2NP-C Sisi Leyvamer Work Phone: 1(757)[address] [place], [place] 9264805-23-2024 14:55-0400 Body maeqvl691.95 kgNP-C Sisi Saravia Work Phone: 1(282)[address] [place], [place] 9264804-15-2024 11:35-0400 Diastolic blood kuubaujz92 mm[Hg]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-C Sisi Saravia Work Phone: 1(509)[address] [place], [place] 9264804-15-2024 11:35-0400 Heart vvum785 /minNP-C Sisi Saravia Work Phone: 1(415)[address] [place], [place] 9264804-15-2024 11:35-0400 SaO2% (BldA) [Mass fraction]94 %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-C Sisi Saravia Work Phone: 1(283)[facility]-[address] [place], [place] 1622204-15-2024 11:35-0400 Systolic blood ejhkihsd659 mm[Hg]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-C Sisibecka Leyvamer Work Phone: 1(912)[address] [place], [place] 9264803-25-2024 17:01-0400 Body gfuzce461.59 cmNP-C Sisi Leyvamer Work Phone: 1(803)[address] [place], [place] 9264803-25-2024 17:01-0400 Body usenhybrekv50.9 [degF]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-C Sisibecka Leyvamer Work Phone: 1(470)[address] [place], [place] 9264803-25-2024 17:01-0400 Body ykjxlf014.23 kgNP-C Sisi Rani Work Phone: 1(119)483-[address] [place], [place] 1622203-25-2024 17:01-0400 Diastolic blood flenzrde95 mm[Hg]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-C Sisi Rani Work Phone: [phone])[address]03-25-2024 17:01-0400 Heart rate88 /minNP-C Sisi Rani Work Phone: 1(419)[facility]-[address] [place], [place] 1622203-25-2024 17:01-0400 Respiratory rate16 /minNP-C Sisi Rani Work Phone: [phone])[address] [place], [place] 9264803-25-2024 17:01-0400 SaO2% (BldA) [Mass fraction]97 %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-C Sisi Rani Work Phone: 1(521)[address] [place], [place] 9264803-25-2024 17:01-0400 Systolic blood eakfkbwj042 mm[Hg]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-C Sisi Rani Work Phone: 1(419)[address] [place], [place] 9264803-14-2024 10:41-0400 Body jsbaig064.59 cmNP-C Sisi Rani Work Phone: 1(926)[address] [place], [place] 9264803-14-2024 10:41-0400 Body mass index (BMI) [Ratio]48.2 kg/m2NP-C Sisi Rani Work Phone: 1(164)[address] [place], [place] 9264803-14-2024 10:41-0400 Body .59 kgNP-C Sisi Rani Work Phone: 1(419)[address] [place], [place] 9264803-14-2024 10:41-0400 Diastolic blood fxaxlovd02 mm[Hg]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-C Sisi Rani Work Phone: 1(588)[address] [place], [place] 9264803-14-2024 10:41-0400 Heart rate90 /minNP-C Sisi Rani Work Phone: 1(799)[address] [place], [place] 9264803-14-2024 10:41-0400 SaO2% (BldA) [Mass fraction]95 %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-C Sisi Rani Work Phone: 1(419)[address]03-14-2024 10:41-0400 Systolic blood adugikik846 mm[Hg]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-C Sisibecka Leyvamer Work Phone: 1(452)[address] [place], [place] 9264802-21-2024 09:55-0500 Diastolic blood fwfyfald58 mm[Hg]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-C Sisibecka Leyvamer Work Phone: 1(674)[address]02-21-2024 09:55-0500 Heart rate82 /minNP-C Sisi Leyvamer Work Phone: 1(345)[address]02-21-2024 09:55-0500 Respiratory rate18 /minNP-C Sisi Leyvamer Work Phone: 1(599)[address] [place], [place] 9264802-21-2024 09:55-0500 SaO2% (BldA) [Mass fraction]94 %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-C Sisi Saravia Work Phone: 1(321)[address]02-21-2024 09:55-0500 Systolic blood chpathjv338 mm[Hg]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-C Sisi Saravia Work Phone: 1(827)[address] [place], [place] 9264802-21-2024 09:15-0500 Inhaled oxygen flow rate3 L/minNP-C Sisi Saravia Work Phone: 1(955)[address] [place], [place] 9264802-21-2024 08:21-0500 Body uoqqvy379.32 cmNP-C Sisi Leyvamer Work Phone: 1(457)[address]02-21-2024 08:21-0500 Body zyqelh656.32 kgNP-C Sisi Leyvamer Work Phone: 1(158)[address]01-30-2024 10:45-0500 Body yhzjvq018.32 cmSbeau Bansal Other [facility]01-30-2024 10:45-0500 Diastolic blood mqaeakih90 mm[Hg]Jet Bansal Other [facility]01-30-2024 10:45-0500 SaO2% (BldA) [Mass fraction]96 %Jet Bansal Other [facility] [employer] Other 258374-21-3527 10:45-0500Systolic blood eackygag380 mm[Hg] Jet Bansal Other [facility]01-10-2024 10:53-0500 Diastolic blood hmahhoip32 mm[Hg]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-C Sisi Rani Work Phone: 1(080)197-[address] [place], [place] 1622201-10-2024 10:53-0500 Heart rate90 /minNP-C Sisi Rani Work Phone: 1(187)[address]01-10-2024 10:53-0500 Respiratory rate16 /minNP-C Sisi Rani Work Phone: 1(915)[address] [place], [place] 9264801-10-2024 10:53-0500 SaO2% (BldA) [Mass fraction]97 %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-C Sisi Rani Work Phone: 1(930)[address] [place], [place] 9264801-10-2024 10:53-0500 Systolic blood glpnipnr675 mm[Hg]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-C Sisi Rani Work Phone: 1(002)[address] [place], [place] 9264801-10-2024 10:14-0500 Inhaled oxygen flow rate3 L/minNP-C Sisi Rani Work Phone: 1(426)[address] [place], [place] 9264801-10-2024 09:54-0500 Body dywspq297.32 cmNP-C Sisi Rani Work Phone: 1(363)[address] [place], [place] 9264801-10-2024 09:54-0500 Body bafrfj229.04 kgNP-C Sisi Rani Work Phone: 2(259)[address]12-13-2023 13:30-0500 Body .32 cmSbeau Bansal Other [facility]12-13-2023 13:30-0500 Diastolic blood hlwtggjo71 mm[Hg]Jet Bansal Other [facility]12-13-2023 13:30-0500 SaO2% (BldA) [Mass fraction]97 %Jet Bansal Other [employer] Other 649392-82-4265 13:30-0500Systolic blood ekvlhxyi983 mm[Hg] Jet Hwangky Other [facility]12-06-2023 10:15-0500 Diastolic blood czrsxgyw83 mm[Hg]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-C Sisi Rani Work Phone: 1(466)196-[address] [place], [place] 1622212-06-2023 10:15-0500 Heart rate76 /minNP-C Sisi Rani Work Phone: 1(834)901-[address] [place], [place] 1622212-06-2023 10:15-0500 Respiratory rate16 /minNP-C Sisi Rani Work Phone: 1(243)573-[address] [place], [place] 1622212-06-2023 10:15-0500 SaO2% (BldA) [Mass fraction]98 %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-C Sisi Rani Work Phone: 1(310)710-[address] [place], [place] 1622212-06-2023 10:15-0500 Systolic blood miwnhyhi657 mm[Hg]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-C Sisi Rani Work Phone: 1(160)[address] [place], [place] 9264812-06-2023 09:36-0500 Inhaled oxygen flow rate3 L/minNP-C Sisi Rani Work Phone: 1(227)021-[address] [place], [place] 1622212-06-2023 09:09-0500 Body wphuav495.32 cmNP-C Sisi Rani Work Phone: 1(745)428-[address] [place], [place] 1622212-06-2023 09:09-0500 Body inqimm461.86 kgNP-C Sisi Rani Work Phone: 1(176)[address]11-21-2023 10:30-0500 Body fogkcr373.32 cmSclemente Hwangky Other [employer] Other 518916-03-5571 10:30-0500Body mass index (BMI) [Ratio] 49.74 kg/n9FpmbyeJet Bansal Other [employer] Other 11-21-2023 10:30-0500Body vvnoen081.96 kgJet Bansal Other [employer] Other 11-21-2023 10:30-0500Diastolic blood cqinlxyi35 mm[Hg] Jet Bansal Other [employer] Other 11-21-2023 10:30-7173RmL5% (BldA) [Mass fraction]92 % Jet Bansal Other [employer] Other 11-21-2023 10:30-0500Systolic blood xwqjryna527 mm[Hg] Jet Bansal Other [employer] Other 10-09-2023 13:00-0400Body ucdbby111.32 cmNahid Landry Other [employer] Other 10-09-2023 13:00-0400Body mass index (BMI) [Ratio] 48.96 kg/q9JqhtemNahid Landry Other [employer] Other 10-09-2023 13:00-0400Body ctidzm242.28 kgNahid Landry Other [employer] Other 10-09-2023 13:00-0400Diastolic blood kyidjfty36 mm[Hg] Nahid Landry Other [employer] Other 10-09-2023 13:00-0400Respiratory rate20 /minDmecca Landry Other [employer] Other 10-09-2023 13:00-2447DgY7% (BldA) [Mass fraction]98 % Nahid Singhdiff Other [employer] Other 10-09-2023 13:00-0400Systolic blood ahcmkwui779 mm[Hg] Nahid Landry Other [employer] Other 07-06-2023 11:15-0400Body fzymoc703.32 cmVinoddeandre Singhdiff Other [employer] Other 07-06-2023 11:15-0400Body mass index (BMI) [Ratio] 48.09 kg/u2Azfqcc Frantz Other [employer] Other 07-06-2023 11:15-0400Body ahouqb069.37 kgVinoddeandre Singhdiff Other [employer] Other 07-06-2023 11:15-0400Diastolic blood mslgqugj03 mm[Hg] Nahid Frantz Other [employer] Other 07-06-2023 11:15-0400Respiratory rate20 /Roxanne Landry Other [employer] Other 07-06-2023 11:15-2181OaP6% (BldA) [Mass fraction]98 % Nahid Landry Other [employer] Other 07-06-2023 11:15-0400Systolic blood payfbobb644 mm[Hg] Nahid Landry Other [employer] Other 02-22-2023 10:45-0500Body .32 cmLawrencolby Kemp Other [employer] Other 02-22-2023 10:45-0500Body mass index (BMI) [Ratio] 52.24 kg/t4Htzltzcp Viridiana Other [employer] Other 02-22-2023 10:45-0500Body csemgl524.4 kgLawrence Viridiana Other [employer] Other 02-22-2023 10:45-0500Diastolic blood mzocpmbb87 mm[Hg] Fransisco Kemp Other [employer] Other 02-22-2023 10:45-0500Respiratory rate20 /minLawrdina Kemp Other [employer] Other 02-22-2023 10:45-0500Systolic blood ljqzwukc007 mm[Hg] Fransisco Englandormack Other [employer] Other 01-19-2023 11:00-0500Body ynqyhe210.32 cmDawn Fitt Other [employer] Other 01-19-2023 11:00-0500Body mass index (BMI) [Ratio] 51.87 kg/m2Dawn Fitt Other [employer] Other 01-19-2023 11:00-0500Body abwucs057.58 kgDawn Fitt Other [employer] Other 12-08-2022 14:30-0500Body erpzqw899.32 cmVinoddeandre Singhdiff Other [employer] Other 12-08-2022 14:30-0500Body mass index (BMI) [Ratio] 51.53 kg/c1Igwhfp Frantz Other [employer] Other 12-08-2022 14:30-0500Body .86 kgNahid Singhdiff Other [employer] Other 12-08-2022 14:30-0500Diastolic blood lrqpoadl45 mm[Hg] Nahid Landry Other [employer] Other 12-08-2022 14:30-0500Respiratory rate20 /minDmecca Landry Other [employer] Other 12-08-2022 14:30-7439ZoJ5% (BldA) [Mass fraction]99 % Nahid Landry Other [employer] Other 12-08-2022 14:30-0500Systolic blood ovjqkkjw320 mm[Hg] Nahid Landry Other [employer] Other 11-30-2022 16:15-0500Body agatht037.32 cmDawn Fitt Other [employer] Other 11-22-2022 15:01-0500Body cquubu838.32 cmPamela S Rani Work Phone: [phone]-Enjdl [facility] [address] DO Work Phone: 1(577) 844-881611-22-2022 15:01-0500Body mass index (BMI) [Ratio] 51.41 kg/w4Umfixk S Rani Work Phone: 1([phone]-Envlo [facility] [address] DO Work Phone: 1(912)[phone] 15:01-0500Body surface area Derived from formula1.99 h4Axaymn S Rani Work Phone: 1(737)[phone]-Kuupe [facility] [address] DO Work Phone: 1(122)[phone] 15:01-0500Body qtdenn733.59 kgPajamela S Rani Work Phone: 1(280)[phone]-Hmhhl [facility] [address] DO Work Phone: 1(299)[phone] 15:01-0500Diastolic blood tiuejouo01 mm[Hg] Sisi S Rani Work Phone: 1([phone]-Bdwxh [facility] [address] DO Work Phone: 1(945)[phone] 15:01-0500Heart rate80 /minPajamela S Rani Work Phone: 1(808)[phone]-Nfdxc [facility] [address] DO Work Phone: 1(494)[phone] 15:01-0500Systolic blood wnoueoaw613 mm[Hg] Sisi S Rani Work Phone: 1(121)[phone]-Wnhiq [facility] [address] DO Work Phone: 1(727)697-925-910627-92 16:36-0500Heart rate94 /minNP-C Sisi Rani Work Phone: [facility]11-06-2022 16:36-0500 Respiratory rate16 /minNP-C Sisi Rani Work Phone: [facility]11-06-2022 15:30-0500 Body rtauavopsnr91.3 [degF]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-C Sisi Rani Work Phone: [facility]11-06-2022 15:30-0500 Diastolic blood htlfiiox57 mm[Hg]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-C Sisi Rani Work Phone: 1(403)066-[address] [place], [place] 1622211-06-2022 15:30-0500 SaO2% (BldA) [Mass fraction]97 %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-C Sisi Saravia Work Phone: 1(711)038-[address] [place], [place] 1622211-06-2022 15:30-0500 Systolic blood yqgprvpn469 mm[Hg]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-C Sisi Saravia Work Phone: 1(712)845-[address] [place], [place] 1622211-06-2022 05:17-0500 Body jiojff393.8 kgNP-C Sisi Saravia Work Phone: 1(832)009-[address] [place], [place] 1622211-04-2022 20:00-0400 Inhaled oxygen flow rate3 L/minNP-Mira Saravia Work Phone: 1(576)870-[address] [place], [place] 1622211-04-2022 18:45-0400 Body mguyub581.32 cmNP-C Sisi Saravia Work Phone: 1(062)355-[address] [place], [place] 1622211-04-2022 11:30-0400 Body ynkduq111.32 cmAjessenia Avilez Other [employer] Other 11-04-2022 11:30-0400Body mass index (BMI) [Ratio]51.2 kg/q7ZflxcCarol Avilez Other [employer] Other 11-04-2022 11:30-0400Body nccszopasza41.9 [degF]Carol Avilez Other [employer] Other 11-04-2022 11:30-0400Body .13 kgCarol Avilez Other [employer] Other 11-04-2022 11:30-0400Diastolic blood mm[Hg] Carol Avilez Other [employer] Other 11-04-2022 11:30-0400Respiratory rate22 /minYger Raghav Other [employer] Other 11-04-2022 11:30-4963MeS5% (BldA) [Mass fraction]96 % Carol Avilez Other [employer] Other 11-04-2022 11:30-0400Systolic blood qhogvpsd22 mm[Hg] Carol Avilez Other [employer] Other 10-27-2022 14:45-0400Body qokejl439.32 cmNahid Landry Other [employer] Other 10-27-2022 14:45-0400Body mass index (BMI) [Ratio] 51.55 kg/l4RmabwlNahid Landry Other [employer] Other 10-27-2022 14:45-0400Body .9 kgNahid Landry Other [employer] Other 10-27-2022 14:45-0400Diastolic blood xxmwmgbe42 mm[Hg] Nahid Landry Other [employer] Other 10-27-2022 14:45-0400Respiratory rate20 /minDmecca Landry Other [employer] Other 10-27-2022 14:45-7531TvP1% (BldA) [Mass fraction]96 % Nahid Landry Other [employer] Other 10-27-2022 14:45-0400Systolic blood xeqtbmll761 mm[Hg] Nahid Singhdiff Other [employer] Other 09-15-2022 14:45-0400Body qeurpl996.32 cmVinoddeandre Landry Other [employer] Other 09-15-2022 14:45-0400Body mass index (BMI) [Ratio] 51.76 kg/n7Zottsudeandre Landry Other [employer] Other 09-15-2022 14:45-0400Body uaydxr156.36 kgNahid Landry Other [employer] Other 09-15-2022 14:45-0400Diastolic blood tuelmhqg53 mm[Hg] Nahid Singhdiff Other [employer] Other 09-15-2022 14:45-0400Respiratory rate20 /minDmecca Singhdiff Other [employer] Other 09-15-2022 14:45-3390XfH7% (BldA) [Mass fraction]98 % Nahid Singhdiff Other [employer] Other 09-15-2022 14:45-0400Systolic blood gishzbpi504 mm[Hg] Nahid Singhdiff Other [employer] Other 08-23-2022 09:00-0400Body cciqii919.32 cmRobert Coles II Other [employer] Other 08-23-2022 09:00-0400Body mass index (BMI) [Ratio] 52.45 kg/b2Uamfae Coles II Other [employer] Other 08-23-2022 09:00-0400Body goqpla386.85 kgRobert Coles II Other [facility] Other 08-04-2022 14:00-0400Body .32 cmNahid Landry Other [facility] Other 08-04-2022 14:00-0400Body mass index (BMI) [Ratio] 52.18 kg/z8BbmywnNahid Landry Other [facility] Other 08-04-2022 14:00-0400Body rcbigv722.26 kgNahid Landry Other [employer] Other 08-04-2022 14:00-0400Diastolic blood fqhcseuf65 mm[Hg] Nahid Landry Other [employer] Other 08-04-2022 14:00-0400Respiratory rate18 /minDmecca Landry Other [facility] Other 08-04-2022 14:00-4248DfN8% (BldA) [Mass fraction]100 % Nahid Landry Other [facility] Other 08-04-2022 14:00-0400Systolic blood offuovnw626 mm[Hg] Nahid Landry Other [employer] Other 08-02-2022 14:30-0400Body .32 Norma Lawson Other [facility] Other 08-02-2022 14:30-0400Body mass index (BMI) [Ratio] 50.15 kg/r3MkqzabzllNimco Lawson Other [facility] Other 08-02-2022 14:30-0400Body fyffimatpqb57.2 [degF] Nimco Lawson Other [facility] Other 08-02-2022 14:30-0400Body .86 kgStjono Lawson Other [facility] Other 08-02-2022 14:30-0400Respiratory rate18 /minSbranden Lawson Other [employer] Other 08-02-2022 14:30-7324JxC8% (BldA) [Mass fraction]95 % Nimco Lawson Other [facility] Other 06-14-2022 14:00-0400Body atdyvv656.32 cmNahid Landry Other [facility] Other 06-14-2022 14:00-0400Body mass index (BMI) [Ratio] 53.04 kg/s5VfuubvNahid Landry Other [employer] Other 06-14-2022 14:00-0400Body oxnrvq458.12 kgNahid Landry Other [facility] Other 06-14-2022 14:00-0400Diastolic blood mm[Hg] Nahid Landry Other [employer] Other 06-14-2022 14:00-0400Respiratory rate24 /Roxanne Landry [facility] Other 06-14-2022 14:00-8364RvC4% (BldA) [Mass fraction]96 % Nahid Landry Other [facility] Other 06-14-2022 14:00-0400Systolic blood hytdwxvh869 mm[Hg] Nahid Landry Other [employer] Other 05-12-2022 15:42-0400Body llrixo589.32 cmPamela S Rani Work Phone: [phone] DO Work Phone: 1(346) 118-828805-12-2022 15:42-0400Body mass index (BMI) [Ratio] 54.13 kg/k9Mdrwty S Rani Work Phone: [phone] DO Work Phone: 1(773) [phone] 15:42-0400Body surface area Derived from formula2.03 r5Impbkg S Rani Work Phone: [phone]-Hfody [place] [employer] [address] DO Work Phone: 1([phone]) [phone] 15:42-0400Body uhlsgc143.48 kgPamela S Rani Work Phone: [phone]-Oiqwy [place] [facility] [address] DO Work Phone: 1(622) 503-685505-12-2022 15:42-0400Diastolic blood dfenvbda00 mm[Hg] Sisi S Rani Work Phone: [phone]-Ixxbj [place] [facility] 250 DO Work Phone: 1(457) [phone] 15:42-0400Heart rate98 /minPamela S Rani Work Phone: [phone]-Dcsfh [place] [facility] [address] DO Work Phone: 1(149) 353-563405-12-2022 15:42-0400Systolic blood ixlcafkx367 mm[Hg] Sisi S Rani Work Phone: [phone]-Kfryt [place] [facility] 250 DO Work Phone: 1([phone] 11:42-0500Diastolic blood mm[Hg] Sisi S Rani Work Phone: [phone]-Veaob [place] [facility] 250 DO Work Phone: [phone] 11:42-0500Systolic blood atghpphv176 mm[Hg] Sisi S Rani Work Phone: [phone]-Otbtj [place] [facility] 250 DO Work Phone: [phone] 11:41-0500Body hojeay079.32 cmPamela S Rani Work Phone: [phone]-Toxlp [place] [facility] 250 DO Work Phone: [phone] 11:41-0500Body mass index (BMI) [Ratio]53.3 kg/g4Ecfunp S Rani Work Phone: [phone][facility] 250 DO Work Phone: [phone] 11:41-0500Body surface area Derived from formula2.02 p4Sxouev S Rani Work Phone: [phone]-Eupfy [place] [facility] 250 DO Work Phone: [phone] 11:41-0500Body umqcpz417.67 kgPamela S Rani Work Phone: [phone]-Fifll [place] [facility] 250 DO Work Phone: [phone] 11:41-0500Diastolic blood trybgqqc92 mm[Hg] Sisi S Rani Work Phone: [phone]-Jjvux [place] [facility] 250 DO Work Phone: [phone] 11:41-0500Heart kigx635 /minPamela S Rani Work Phone: [phone]-Nakmw [place] [facility] 250 DO Work Phone: [phone]) 340-964101-07-2022 11:41-0500Systolic blood iobhyoir858 mm[Hg] Sisi Leyvamer Work Phone: [phone]-Znbsd [place] [facility] 250 DO Work Phone: Encounters Encounter DateEncounter TypeCare ProviderFacilityStart: 15-50-5863gcfzkpkrpf Laurel CassidyFacility:HEBER BanegasevueStart: 05-18-2025 End: 20-23-5879Etcsvpkzw encounterMarshall Brink PTANOMS [place] [facility] Start: 06-78-9012pkswqotxopNsedwoqumnu AbdelazizFacility:[facility] Hospitaltart: 05-06-2025 End: 50-63-2231aguivjcqoaZsvcdtl A. MouchliFacility:[facility] Cent[facility]art: 05-06-2025 End: 41-49-6537Lsmpzvk encounter procedureLaurel Cassidy [phone]-[facility]ag[facility] Start: 05-05-2025 End: 50-46-2700Oojewc flowsheetMarshall Brink PTANOMS [place] [facility] Start: 05-05-2025 End: 97-83-7568Ogrfcg flowsheetMarshall Brink PTANOMS [place] [facility] Start: 05-05-2025 End: 01-57-8155erbldcnypjWnfckppr Brink PTANOMS [place] Physical TherapyComment on above:Spondylosis without myelopathy or radiculopathy, lumbosacral region (Primary Dx); Arthritis of lumbar spine; Sedentary lifestyleStart: 04-30-2025 End: 18-09-1364Imdeyi flowsheetMarshall Brink PTANOMS [place] [facility] Start: 04-30-2025 End: 24-96-7836Jqxegq flowsheetMarshall Brink PTANOMS [place] [facility] Start: 04-30-2025 End: 61-46-2634emeiaonuwxEngsnsay Brink PTANOMS [place] [facility] TherapyComment on above:Spondylosis without myelopathy or radiculopathy, lumbosacral region (Primary Dx); Arthritis of lumbar spine; Sedentary lifestyleStart: 04-26-2025 End: 37-01-8888Vabqmp flowsheetMaruzair Beck PTANOMS [place] [facility] Start: 04-26-2025 End: 31-94-1272Upulfg flowsheetMaruzair Beck PTANOMS [place] [facility] Start: 04-26-2025 End: 50-82-9621ivauavafsaPmtrdwek Brink PTANOMS [place] Physical TherapyComment on above:Spondylosis without myelopathy or radiculopathy, lumbosacral region (Primary Dx); Arthritis of lumbar spine; Sedentary lifestyleStart: 04-23-2025 End: 71-71-6831Jjlywm flowsheetSammantha Chacon PTNOMS [place] [facility] Start: 04-23-2025 End: 41-94-0697Meboax flowsheetSammantha Chacon PTNOMS [place] [facility] Start: 04-23-2025 End: 30-93-6948pfzzskklbjTimsqgody Chacon PTNOMS [place] [facility] Comment on above:Spondylosis without myelopathy or radiculopathy, lumbosacral region (Primary Dx)Start: 15-45-9870xrtakgnworWqlgwis MichelleliFacility:Verito Connolly DHStart: 02-04-2025 End: 88-33-2769qdlnrohsrrBfqbo TurovskayaFacility:[facility] Hospitaltart: 01-06-2025 End: 56-85-5150Tngcdb flowsheetAnthony S Toddher DPM Work Phone: noMS PODIATRYStart: 01-06-2025 End: 11-08-4289Nkdadm flowsheetAnthony S Toddher DPM Work Phone: noMS PODIATRYStart: 01-06-2025 End: 94-41-6117Hkunmb outpatient visit 25 minutesAnthvalentin S Soco DPM Work Phone: noMS PODIATRYComment on above:Primary osteoarthritis of left ankle (Primary Dx); Valgus deformity, not elsewhere classified, left ankle; Instability of left ankle joint; Difficulty walking; Diabetes mellitus due to underlying condition with diabetic polyneuropathy, with long-term current use of insulin ([facility])Start: 01-06-2025 End: 81-68-6214wcrjstrhflZUMFQSY S RUSHERNot AvailableStart: 12-30-2024 End: 10-22-5636Bbstxa outpatient new 30 minutesChristopher Hector DO Work Phone: ana SANDUSKYComment on above:Degeneration of intervertebral disc of lumbar region with discogenic back pain and lower extremity pain (Primary Dx)Start: 12-30-2024 End: 45-79-4992ajuqycfrvdEVLOXQAQUHS HASSETTNot AvailableStart: 12-30-2024 End: 28-71-0790Ogsdlu flowsheetChristopher Hector DO Work Phone: ana SANDUSKYStart: 12-30-2024 End: 75-34-9768Dnjegv flowsheetChristopher Hector DO Work Phone: ana LEONARDOUSKYStart: 12-23-2024 End: 74-76-7037Kjzhly Sabine DEMPSEY Work Phone: noms FB ORTHOPAEDICSStart: 12-23-2024 End: 44-07-0348Jitxcr Sabine DEMPSEY Work Phone: noms FB ORTHOPAEDICSStart: 12-23-2024 End: 44-16-5136Borpjd outpatient visit 25 minutesMattkimberly DEMPSEY Work Phone: noms FB ORTHOPAEDICSComment on above:Acute left ankle pain (Primary Dx); Left foot pain; Arthritis of left ankle; Bilateral leg edemaStart: 12-23-2024 End: 28-55-1560bvmsoqppukMEIVKNS J MEYERNot AvailableStart: 06-15-2024 End: 25-36-3270gaxldamkcrBTSmith Saravia Work Phone: [facility] Work Phone: Start: 06-15-2024 End: 26-64-6413Iyimllz encounter procedureIDALMIS Saravia Work Phone: [facility] Gastroenterology Work Phone: Start: 83-09-4936Obrnhbchyy RecurringIDALMIS Saravia Work Phone: [facility] CredibleStart: 05-26-2024 End: 62-54-7045Dnkfrgyukg hospital visit by Vicki Masters 1[facility] HospitalStart: 05-26-2024 End: 46-34-9958udmtckoelgPZPNJAYSt. Mary's Medical Center, [place] Campustart: 05-25-2024 End: 51-78-7213Imzimdxill hospital visit by Vicki Masters 1[facility] HospitalComment on above:Chest pain, unspecified typeStart: 05-25-2024 End: 68-82-8780dhkenuqhgxUSNQQPPKindred Hospital Daytontart: 04-06-2024 End: 02-28-5456Jazidh outpatient visit 15 minutesErika DEMPSEY Work Phone: noms [facility] ORTHOComment on above:Right hip pain (Primary Dx); Piriformis syndrome, rightStart: 04-02-2024 End: 95-26-3691govaagjmdfFJBFPDYWellstar [facility] AmbulatoryStart: 04-02-2024 End: 09-05-0107Nmztlj outpatient visit 25 minutesNoman Henriquez MD Work Phone: uh [facility] UniversityComment on above:Chest pain, unspecified type; Essential hypertension; Hyperlipidemia, unspecified hyperlipidemia type; Sleep apnea, unspecified type; Chronic obstructive pulmonary disease, unspecified COPD type (Multi); Diabetes mellitus type II, non insulin dependent (Multi); Palpitations; BMI 45.0-49.9, adult (Multi); Current smokerStart: 03-24-2024 End: 21-18-1323Netxvgdyf department patient visitNP-C Sisi Saravia Work Phone: [facility]-Emergency Room Work Phone: Start: 77-26-2163Zqxpjmxikk RecurringNP-C Sisi Saravia Work Phone: [facility]- CredibleStart: 01-09-2024 End: 06-15-8643ecsslzxktjAY-C Sisibecka Leyvamer Work Phone: [facility] Work Phone: Start: 01-09-2024 End: 38-43-3771Mhyrmtp encounter procedureNP-C Sisi Saravia Work Phone: [facility] Orthopedics Work Phone: Start: 01-09-2024 End: 87-98-0088zvcpeqwfspHN-C Sisibecka Leyvamer Work Phone: [facility] Work Phone: Start: 01-09-2024 End: 44-18-0806Fylmmbq encounter procedureNP-C Sisi Saravia Work Phone: [facility] [place] [facility] Start: 09-32-6876Iofamlxign RecurringNP-C Sisi Saravia Work Phone: [facility] CredibleStart: 01-02-2024 End: 64-68-6860uugarfhvodPH-C Sisi Isabella Rani Work Phone: [facility] Work Phone: Start: 01-02-2024 End: 12-49-4475Dmehjqc encounter procedureNP-C Sisibecka Leyvamer Work Phone: [facility] Start: 12-02-2023 End: 65-09-7750aennqvfznwSW-C Sisi Isabella Rani Work Phone: [facility] Work Phone: Start: 12-02-2023 End: 95-40-5314Afrairc encounter procedureNP-C Sisi Saravia Work Phone: [facility] Work Phone: Start: 11-11-2023 End: 49-68-7202Ugxshbhdn department patient visitNP-C Sisi Saravia Work Phone: [facility]-Emergency Room Work Phone: Start: 10-31-2023 End: 93-00-2981tgiupudcluLQ-C Sisi Saravia Work Phone: [facility] Work Phone: Start: 10-31-2023 End: 02-54-3991Jdycwpd encounter procedureNP-C Sisi Saravia Work Phone: [facility] Work Phone: Start: 36-60-9270Hnovhkimqd RecurringNP-C Sisi Saravia Work Phone: [facility]- CredibleStart: 56-15-1667Qlt-patient / Wyc-xwmrlTY-A Sisi Saravia Work Phone: [facility] Work Phone: Start: 10-09-2023 End: 16-83-4872Tvubzxghu to same day surgery centerNP-C Sisi Saraiva Work Phone: [facility]-Digestive Health Work Phone: Start: 10-09-2023 End: 66-31-6495wuefxvljfeXA-C Sisi Saravia Work Phone: [facility] Work Phone: Start: 41-48-9214Gplcmc flowsheetMariah Tattersall SHOP ESTIMATOR NOMS CI PTStart: 34-82-6433Pbdgku flowsheetMariah Tattersall PTANOMS CI PTStart: 10-03-2023 End: 30-49-9243lstoxxhbhcBoptna Tattersall PTANOMS CI PTComment on above:Right cervical radiculopathy (Primary Dx); Cervical radiculopathyStart: 81-38-2809Tfvsjudil encounterAdriana White SHOP ESTIMATOR NOMS CI PTComment on above:re: PT today (She called noting not feeling well today and needs to cx; I reminded and she confirmed 10/03.)Start: 09-27-2023 Bamboo Jacquelin Lucas PT Work Phone: noms CI PTStart: 36-39-9395Kxnotr Jacquelin Lucas PT Work Phone: noms CI PTStart: 09-27-2023 End: 03-05-3421oebcuxlpxnQjbdmj J Evans PT Work Phone: noms CI PTComment on above:Cervical radiculopathy (Primary Dx); Right cervical radiculopathyStart: 74-09-9244Hgxnwvbxhr RecurringIDALMIS Saravia Work Phone: [facility]- CredibleStart: 09-17-2023 End: 94-59-8913zjkkmyiopkIkskga Zaky Other [facility] inexio Other Start: 33-14-8321Yuebax outpatient visit 25 minutes Jet Salinas Pain ManagementStart: 09-17-2023 End: 51-83-0093Uxhxbon encounter procedureIDALMIS Saravia Work Phone: [facility]-Start: 08-28-2023(PROC) PROCEDURESherif [facility] OutPtStart: 08-28-2023 End: 17-13-4522Ewdxezfqw to same day surgery centerIDALMIS Saravia Work Phone: [facility]-Digestive Health Work Phone: Start: 08-28-2023 End: 08-40-9013jprwdskasaYM-C Pamela Sue Cramer Work Phone: [facility] Work Phone: Start: 08-06-2023 End: 40-24-0084jinlwojktnVK-C Sisi Saravia Work Phone: [facility] Work Phone: Start: 08-06-2023 End: 03-88-3848Twpmvbb encounter procedureNP-C Sisi Saravia Work Phone: [facility]-MRI Main [place] Work Phone: Start: 07-31-2023 End: 41-32-7548rusvlpydvbUjjfqb Zaky Other [employer] Other Start: 06-52-1271Svxdon outpatient visit 15 minutes Jet Barry Pain ManagementStart: 07-31-2023 End: 75-56-2989Avjhxqq encounter procedureNP-C Sisi Saravia Work Phone: [facility] Work Phone: Start: 07-24-2023(PROC) PROCEDURESherCleveland [facility] OutPtStart: 07-24-2023 End: 22-33-9047mjkragevbgNzjdkj Zaky Other [employer] Other Start: 07-24-2023 End: 95-39-1366Mlnvafrfk to same day surgery centerNP-C Sisi Saravia Work Phone: [facility]-Digestive Health Work Phone: Start: 84-44-2984Ynfnxvakor RecurringNP-C Sisi Saravia Work Phone: [facility]-BH CredibleStart: 07-09-2023 End: 13-20-1173ukvfpfdefxBxeqxf Zaky Other [employer] Other Start: 96-35-0825Ofkeqn outpatient new 45 minutes Jetclemente BansalFPG Pain ManagementStart: 56-96-8355Vazbnyyao encounterSherclemente BansalFPG Pain ManagementStart: 05-27-2023 End: 13-91-6336erumpyjbwiLfnqje Cundiff Other [employer] Other Start: 81-51-3906Rqjrhm-up encounterAdventhealth Deland Coordinated Care ClinicStart: 22-31-6305Jubviwujbs RecurringNP-C Sisi Rani Work Phone: [facility]-Weight Management Work Phone: Start: 04-17-2023 End: 87-96-9426xpoqmipipyAxrrnqfg Viridiana Other [employer] Other Start: 17-29-6883Wkmgbvfrj encounterLawrence Viridiana [facility] GastroenterologyStart: 02-21-2023 End: 47-72-9980ssiquwzbjeIwzepm Frantz Other [employer] Other Start: 10-90-2665Fkhwag-up encounterHonorhealth [facility] Care ClinicStart: 11-19-2022 End: 12-31-7444snnrgfbopjSzyukhoq Viridiana Other [employer] Other Start: 67-48-5802Fynjwkbas encounterLawrence Viridiana [facility] GastroenterologyStart: 11-13-2022 End: 46-19-1606uzoslrlqroYodnlcsf Viridiana Other [employer] Other Start: 34-47-7865Fmuowgdno encounterLawrence Viridiana [facility] GastroenterologyStart: 10-24-2022 End: 29-83-3651qfjkzbldeuDarzsk Felter Other [employer] Other Start: 22-49-1734Uewbyqflw encounterThomas FelterFPG Referral CoordinatorStart: 10-11-2022 End: 38-80-1725kdwozsahyyWQ-C Sisi Saravia Work Phone: [facility] Work Phone: Start: 10-11-2022 End: 63-85-9644Xmhmazw encounter procedureNP-C Sisi Saravia Work Phone: [facility]-[address] Work Phone: Start: 10-10-2022 End: 87-88-1412obzxyopisjOisukuqs McCormack Other [employer] Other Start: 13-75-4087Qszznx outpatient new 45 minutes Fransisco JohnsonG GastroenterologyStart: 09-27-2022 End: 97-56-0442wpckawjectVieotu Coles II Other [employer] Other Start: 38-28-7298Qibtcixmc encounterRobert Coles II [facility] [place] OrthopedicsStart: 09-06-2022([facility] WMNI) WMN Initial ProviderDawn [facility] Coordinated Care ClinicStart: 09-06-2022 End: 78-30-5879eifpjzgbhtQwal Ronnit Other [employer] Other Start: 31-49-9823Aasrkccaks RecurringNP-C Sisi Saravia Work Phone: [facility]-Weight Management Work Phone: Start: 08-08-2022 End: 71-79-2458xnomhnafiqGUQHHD CRAMERFacility:O1Ttuut: 07-26-2022 End: 76-12-0691mllmnxweacNpekrj Cundiff Other [facility] [employer] Other Start: 51-46-7603Vqwazb-up encounterNahid Landry [facility] Coordinated Care ClinicStart: 07-18-2022 End: 06-50-2917vbccmjaezyXfhotp Cundiff Other [facility] [employer] Other Start: 64-66-2679VCN FOR [employer] 2-10 30MDawn [facility] Coordinated Care ClinicStart: 11-90-6494Lohcnlnxw encounterNahid LandryCarolinas [facility]care Hospital [facility] Coordinated Care ClinicStart: 69-85-6713Ihsjeu outpatient visit 25 minutesPalore Saravia Work Phone: [phone]-Feipo [place] [facility] 250 DO Work Phone: Start: 10-95-6569vpqhqmwcjiZcLeonel Henriquez Facility:[id number]: 06-28-2022 End: 96-42-1879jnkmnuwuyfYP CRYSTAL HOYFacility:C0Jugrk: 06-22-2022 End: 89-06-1914Auosggheti and management of inpatientNP-C Sisi Saravia Work Phone: [facility] [place] Med SurgStart: 06-22-2022 End: 76-24-4377hziymniqceBbqer Keller Other [facility] [employer] Other Start: 21-79-0758Agkkmmj encounter procedureCarol AvilezFPG Urgent Care ClydeStart: 97-16-3616Kuupquyfxu RecurringNP-C Sisi Saravia Work Phone: [facility]-Weight ManagementStart: 06-14-2022 End: 07-23-8025yleeysxhhxAgtsck Cundiff Other [facility] [employer] Other Start: 59-64-4537Jhqhdu-up encounterNahid [facility] Coordinated Care ClinicStart: 05-10-2022 End: 60-66-7488Ebbrhlp encounter procedureNP-C Sisi Saravia Work Phone: [facility]-Lab Strub RdStart: 53-20-3181Ukjaknebbu RecurringNP-C Sisi Saravia Work Phone: [facility]-Weight ManagementStart: 05-03-2022 End: 63-30-8160lhiqypuhdqZjhpre Cundiff Other [employer] Other Start: 95-33-6050Exeiwd-up encounterNahid [facility] Coordinated Care ClinicStart: 04-10-2022 End: 18-58-1686txbodltypsVvndsb Armando II Other [employer] Other Start: 46-36-8382Zowpvk outpatient new 45 minutes Osvaldo Armando IIFPG [place] OrthopedicsStart: 04-10-2022 End: 58-32-2204Oucbrtx encounter procedureNP-C Sisi Saravia Work Phone: [facility] Start: 03-30-2022 End: 12-57-3669avdssqpmbgDbls Fitt Other [employer] Other Start: 37-27-3987Kwtivftqn encounterDawn FitWillamette Valley Medical Center Coordinated Care ClinicStart: 02-66-3168Mmspsexdgt RecurringNP-C Sisi Saravia Work Phone: [facility]-Weight ManagementStart: 03-22-2022 End: 00-36-8797cnkctqnibmGyfxnb Cundiff Other [employer] Other Start: 02-80-4762Ftncum-up encounterNahid [facility] Coordinated Care ClinicStart: 03-20-2022 End: 44-38-4299hdbnaklvfwQnzfakrdd Breault Other [employer] Other Start: 11-07-2657Ngvcff outpatient visit 15 minutes Nimco LawsonFPG Urgent Care ClydeStart: 02-06-2022 End: 46-42-2632lgrjsitmmrOPJRNG CRAMERFacility:H9Vutag: 01-30-2022 End: 68-03-3812vhqdrjuikmRpfksm Frantz Other [facility] [employer] Other Start: 73-46-1881Amxmkqlha David Landry [facility] Coordinated Care ClinicStart: 17-53-4634Gdyuco outpatient visit 25 minutesSisi Saravia Work Phone: [phone]-XlmvzO[facility] 250 DO Work Phone: Start: 60-82-1108olpdufknkbOtmbulatoryDr. Noman Henriquez Facility:[id number]: 16-37-5564Janeiw consultation new/estab patient 60 min Sisi Saravia Work Phone: [phone]-VagppOlivia Hospital [facility] 250 DO Work Phone: Start: 65-06-9584romcdcmgqiQfdrro Sue Dorothea Cramer Facility: Procedures DateProcedureProcedure DetailPerforming ClinicianStart: 12-23-2024 End: 43-92-5811Udfjc ankle complete minimum 3 viewsMatthew Karen DEMPSEY Work Phone: Start: 21-33-2882Ym strs tst xers&/or rx cont ecg trcg Americo Henriquez MD Work Phone: Start: 03-85-4341J-ray of left kneeNP-C Sisi Saravia Work Phone: Start: 48-28-4189T-ray of right kneeNP-C Sisi Saravia Work Phone: Start: 13-15-6474Vbscpyljtjmqbn destruction of peripheral nerveNP-C Sisi Saravia Work Phone: [phone]: 57-38-8254Mfczg anesthetic nerve block in lower limbNP-C Sisi Saravia Work Phone: [phone]: 47-52-3307UT lumbar spine wo conNP-C Sisi Saravia Work Phone: [phone]: 03-85-6466Lzzkg anesthetic nerve block in lower limbNP-C Sisi Saravia Work Phone: [phone]: 19-01-2698JI of thorax with contrastNP-C Sisi Saravia Work Phone: [phone]: 83-06-9234Jpntd chest X-rayNP-C Sisi Saravia Work Phone: [phone]: 75-45-8461Kdytau X-rayNP-C Sisi Saravia Work Phone: [phone] of hand, thumb or fingerPamela S Rani Work Phone: Arthroplasty of kneePamela S Rani Work Phone: [phone] of shoulderPamela S Rani Work Phone: [phone] sectionPamela S Rani Work Phone: [phone] S Rani Work Phone: [phone] of transfusion reactionNP-C Sisi Saravia Work Phone: [phone]: Highlighted row has not occurred!Total colonoscopyPamela S Rani Work Phone: Plan of Treatment DateCare ActivityDetailAuthorStart: 05-07-2025 End: 83-66-8554lwiqycmwfgHJTW [place] [facility] TherapyStart: 05-05-2025 End: 26-75-0044xrxcgjqtdr81/17/2025 12:00 PM EDT Treatment [facility] [place] [facility] [address] [place] [place] [address] Heaven Beck PTANOMS [place] Physical TherapyStart: 04-30-2025 End: 54-55-6543laimvrgfso29/12/2025 2:00 PM EDT Treatment [facility] [place] [facility] [address] [facility] [address] [place], [place] Heaven Beck PTA ArrivedNOMS [place] Physical TherapyComment on above:ArrivedStart: 04-29-2025 End: 10-82-9166hgeavhsqrq09/11/2025 11:30 AM EDT Treatment [facility] [place] [facility] [address] [facility] [address] [place] [address] Nancy Russell PTANOMS [place] Physical TherapyStart: 04-26-2025 End: 00-19-0659vienptudud75/08/2025 11:00 AM EDT Treatment [facility] [place] [facility] [address] [facility] [address] [place] [address] Heaven Beck PTANOMS [place] Physical TherapyStart: 48-10-9271Ezfqxjqth vaccination NOMS HealthcareStart: 04-12-2025 End: 01-60-9357Oslrxkb encounter opimzrbhv36/25/2025 1:20 PM EDT Office Visit ZUNILDA SCALES [address] [facility] [address] [place] [address] Brigitte Quiñonez NP [address] [place] [phone] ZUNILDA MONAEYStart: 01-06-2025 End: 80-65-7861Cellscm encounter procedureNOMS FH PODIATRYComment on above: ArrivedStart: 12-30-2024 End: 80-32-7406Nvifink encounter procedureANA SANDUSKYComment on above:Arrived Start: 12-23-2024 End: 43-26-6775Flxdaia encounter njjrhidqy10/07/2025 10:30 AM EDT Office Visit [facility] [address] [place] [phone] Erika Orosco, PA [address] [facility] [address] [place] [address] Acute pain of left knee (Primary Dx)[facility] Comment on above:Acute pain of left knee (Primary Dx)Start: 08-06-2024 End: 42-57-4258Dsowpfg encounter zramncxzw65/19/2024 3:10 PM EST Office Visit [address] [place] [address] [place] [address] Noman Henriquez MD [address] [facility] [place] [address] [place] [address] [facility]: 05-26-2024 End: 00-51-0627Rfocstg encounter rpmqpfiaa23/08/2024 12:45 PM EDT Appointment [place] [address] [facility] [address] [place] [phone] [facility]Start: 97-58-2463Lrogpcpnev hospital visit by physician 05/26/2024 12:30 PM EDT Hospital Encounter [address] [place] [phone] [facility] HospitalStwal[facility]: 04-19-2024 COVID-19 Vaccine ( season)COVID-19 Vaccine ( season) [facility]: 57-06-3719Qexuhhyfm vaccinationInfluenza Vaccine (#1)[facility]: 04-02-2024 End: 37-65-2668CK Heart Perfusion W stress and W radionuclide IVNuclear Stress Test Cardiac Nuclear Medicine Routine Chest pain, unspecified type Expected: 04/02/2024 (Approximate), Expires: 04/02/2026[facility] Area Work Phone: Comment on above:Expected: 04/02/2024 (Approximate), Expires: 04/02/2026Start: 10-18-2023 End: 06-37-0280Bnwtmsn encounter milrzsfkw90/01/2024 10:45 AM EST Office Visit [facility] [address] [facility] [address] [place] [address] Erika Orosco PA [address] [place] [address] [place] [address] [facility]: 10-16-2023 End: 62-43-3300btgcefgerr28/28/2024 12:00 PM EST Treatment [facility] [address] [place] [address] [place] [address] Adriana White PTAN[facility] CI PTStart: 10-14-2023 End: 02-30-1220qvakmokawd45/26/2024 12:30 PM EST Treatment [facility] [address] [facility] [address] [place] [address] Adriana White PTANOM[facility] CI PTStart: 47-01-3382WakhfprimBucyrus Community Hospitaltart: 10-07-2023 End: 27-83-6518ujfwxmnufp46/19/2024 12:30 PM EST Treatment [facility] [address] [address] [facility] [address] [place] [address] Adriana White PTANOMS CI PTStart: 10-03-2023 End: 19-01-9922ryvshndxvuSKDJ CI PTComment on above:ArrivedStart: 10-01-2023 End: 50-39-9727mbttebutrs73/13/2024 12:00 PM EST Treatment [facility] PT [address] [facility] [address] [place] [address] Adriana White PTANOMS CI PTStart: 64-72-9796TcmsdeclhBucyrus Community Hospitaltart: 07-24-2023 [facility]: 94-92-8493YTRLI-19 Vaccine ()COVID-19 Vaccine ( season)[facility] Start: 68-94-4290XYC, Provider: Noman Henriquez, Status: Pen, Time: 2:50 PM FUV, Provider: Noman Henriquez, Status: Pen, Time: 2:50 PMMP-[facility] 250 DO Work Phone: Start: 29-07-7422TnfjxjemtWilson Memorial Hospital Start: 10-26-2542XJA, Provider: Noman Henriquez, Status: Pen, Time: 2:30 PM FUV, Provider: Noman Henriquez, Status: Pen, Time: 2:30 PMMP-[facility] 250 DO Work Phone: Start: 68-06-7692PgfumgpbfWilson Memorial Hospital Start: 64-63-6111Hdfsjent to gastroenterologistWilson Memorial Hospital Start: 06-23-2022 End: 89-42-7863DpcrhosalBucyrus Community Hospitaltart: 01-06-1844Dcankiksv culture of sputumBucyrus Community Hospitaltart: 75-20-0515Hanulgwm to Social ServicesBucyrus Community Hospitaltart: 24-61-1581Rjtodftv admissionBucyrus Community Hospitaltart: 71-80-1991ReqeichluPromedica Flower Hospital Ctr Work Phone: Start: 03-43-0919SDQ, Provider: Noman Henriquez, Status: Pen, Time: 3:20 PMFUV, Provider: Noman Henriquez, Status: Pen, Time: 3:[address] 250 DO Work Phone: Start: 34-48-8524BUT patients and/or patients aged 60+ years (1 - 1-dose 60+ series)RSV patients and/or patients aged 60+ years (1 - 1-dose 60+ series)[facility]: 51-23-1598Gogjhv Vaccines (1 of 2)Zoster Vaccines (1 of 2)[facility]: 11-70-6275Vvycctkqc for malignant neoplasm of breastMammogram [facility] HealthcareStart: 68-08-7225Sjacloahx for malignant neoplasm of cervixNOMS HealthcareStart: 72-62-9629SMaG/Tdap/Td Vaccines (1 - Tdap)DTaP/Tdap/Td Vaccines (1 - Tdap)[facility]: 84-73-0812Gvoyljwvi for malignant neoplasm of cervixNOMS HealthcareStart: 70-74-1707Pmaxs screening for proteinDiabetes: Urine Protein ScreeningSalem Regional Medical Center: 26-84-0465Qvllanuf mellitus screeningDiabetes ScreeningUnSelect [facility]ty [facility] [place]: 85-02-5837Qmqkiuruc C screeningHepatitis C ScreeningUnSelect Medical Specialty [facility] [place]: 18-14-7952Qmcapwdv screeningDiabetes: Retinopathy ScreeningSalem Regional Medical Center: 11-49-5594Pqjuwzpbtaak Vaccine: Pediatrics (0 to 5 Years) and At-Risk Patients (6 to 64 Years) (1 of 2 - PCV) Pneumococcal Vaccine: Pediatrics (0 to 5 Years) and At-Risk Patients (6 to 64 Years) (1 of 2 - PCV)[facility]: 41-92-8470MPL Vaccines (1 of 1 - Standard series)MMR Vaccines (1 of 1 - Standard series) [facility]: 91-97-7968Jlpiybpfck A1c measurement Diabetes: Hemoglobin W0XAqkmygsqgmSelect Medical Specialty [facility] [place]: 76-83-5068EGT screeningHIV ScreeningSalem Regional Medical Center: 21-12-2087Ndttw panelLipid PanelSalem Regional Medical Center: 1960Medicare Annual Wellness (AWV)Medicare Annual Wellness (AWV)[facility]S HealthcareStart: 1960Medicare Annual Wellness VisitMedicare Annual Wellness Visit (AWV) [facility]: 69-09-7979Ohqrjkipj for malignant neoplasm of colonNOMS HealthcareStart: 10-93-8167Yldbrpr stimulating hormone measurementTSH LevelUnKindred HealthcareAerobic microbial culture Aerobic CultureWilson Memorial HospitalAldolase measurementPromedica Flower Hospital Ctr Work Phone: Blood culture for bacteria, including anaerobic screen Blood CultureWilson Memorial HospitalFluoroscopy of esophagusWilson Memorial HospitalHomogenous nuclear Ab pattern [Titer] in SerumPromedica Flower Hospital Ctr Work Phone: Insulin [Units/volume] in Serum or PlasmaWilson Memorial Hospital End: 00-06-7796EG Heart Perfusion W stress and W radionuclide [facility] Service Area Work Phone: Comment on above:Once for 1 Occurrences starting 05/25/2024 until 05/25/2024Nuclear Ab [Titer] in SerumPromedica Flower Hospital Ctr Work Phone: Patient EducationPromedica Flower Hospital Ctr Work Phone: Patient referralPromedica Flower Hospital Ctr Work Phone: Radionuclide gastric emptying studyWilson Memorial HospitalThyrotropin [Units/volume] in Serum or PlasmaWilson Memorial HospitalThyroxine (T4) free index in Serum or Plasma by calculation Wilson Memorial HospitalThyroxine measurementWilson Memorial HospitalTriiodothyronine (T3) [Mass/volume] in Serum or PlasmaWilson Memorial HospitalTriiodothyronine resin uptake (T3RU) in Serum or PlasmaWilson Memorial HospitalXR Hip - right 3 ViewsXR hip right 2 or 3 views Imaging Routine Right hip pain 04/06/2024 2:15 PM [facility] Work Phone: [facility] Immunizations Immunization DateImmunizationNotesCare UojjropzUaxibbfk26-85-8009iuyeeccjm, injectable, quadrivalent, preservative freeNP-C Sisi Saravia Work Phone: [facility]01-05-2024influenza virus vaccine, unspecified formulationNoman Henriquez MD Work Phone: [facility] Work Phone: [phone]-QznSFmjy COVID-19 Vacc 30 MCG/0.3ML Intramuscular SuspensionPamela Farnaz Saravia Work Phone: [facility]03-22-2021Pfizer- BioNTech COVID-19 Vacc 30 MCG/0.3ML Intramuscular SuspensionPamela S Rani Work Phone: [facility]11-04-2020influenza, injectable, quadrivalent, preservative freePamela S Rani Work Phone: [phone] [place], [place] 1622210-01-2020influenza, injectable, quadrivalent, preservative freePamela S Rani Work Phone: [phone] [place], [place] 1622211-19-2019influenza, injectable, quadrivalent, preservative freePamela S Rani Work Phone: [phone] [place], [place] 1622211-05-2018influenza, injectable, quadrivalent, preservative freePamela S Rani Work Phone: [phone] [place], [place] 1622210-30-2018Influenza, injectable, Madin Sharee Canine Kidney, preservative free, quadrivalentNP-C Sisi Rani Work Phone: [phone] [place], [place] 1622210-04-2016influenza, injectable, quadrivalent, preservative freePamela S Rani Work Phone: [phone] [place], [place] 1622212-07-2015influenza, seasonal, injectable, preservative freePamela S Rani Work Phone: [phone] [place] [address] Payers DatePayer CategoryPayerPolicy [id number] [id number] [id number] [id number] 1988Medicare [id number] 2.16.840.1.936789.3.57[id number] 2.16840.1.984022.3.57[id number] 2.16840.1.440177.3.579.[id number] 2.16840.1.279933.3.57[id number] 2.16840.1.082457.3.57[id number] 2.840.1.160576.3.57[id number] 2.840.1.260933.3.579.2.4[id number] 2.0.1.696158.3.579.2.668240-52-1782Bqhcclc65550200 2.840.1.974902.3.579.2.794657-01-0899Mmixktl55603743 2.0.1.167129.3.579.2.260589-08-2298Jdmqszo18330764 2.0.1.993437.3.579.2.322079-46-3980Tsphrdh94474885 2.0.1.261162.3.579.2.[id number] 2.840.1.113631.3.579.2.856991-59-9940Fmrjtic71767192 2.840.1.340566.3.579.2.689396-87-5368Emfqfai42671637 2.840.1.812411.3.579.2.656194-79-7847Brcaupz34843593 2.16.840.1.626819.3.579.2.711461-01-5043Hmflcyj2478098 2.16.840.1.961198.3.579.2.503784-50-2695Tearlas6403166 2.16.840.1.796076.3.579.2.468151-86-0212Bpdgrnt1537168 2.16.840.1.447100.3.579.2.660972-57-4840Qrueffr4369561 2.16.840.1.890340.3.579.2.072547-55-9487Zxeacsn4779726 2.16.840.1.348908.3.579.2.741330-64-5449Byxazlw38866728 2..0.1.992207.3.579.2.727 [id number] 2..840.1.266729.19 MedicareMedicare [id number] UnknownUnknownHCAP/HFA/FAP [id number] UnknownHCAP/HFA/FAP [id number] [id number] 2.0.1.210930.3.579.2.641Zaaczoc62163476 2.0.1.648956.3.579.2.531 Social History DateTypeDetailFacilityStart: 09-12-2023 End: 04-41-4762Bwjwq caffeine consumptionDaily caffeine consumption-[facility] 250 DO Work Phone: Comment on above:4 CUPS OF COFFEE, GREEN TEA;1.5 TO PPD;Start: 09-12-2023 End: 57-49-1184Zjd Assigned At [facility]tart: 23-62-6258Kag Assigned At [facility] StanlyFeParma Community General Hospitaltart: 06-22-2022 End: 58-73-4274Jcmtsbr smoking status NHISSmoker (finding)[facility] Hospitaltart: 01-18-2023 End: 02-17-1096Ktxsfhb smoking status NHISSmokes tobacco dailyNOMS Healthcare History of tobacco useCigarette SmokerNOMS HealthcareHistory of tobacco use Passive smokerNOMS HealthcareStart: 01-18-2023 End: 84-72-2084Xdqeafy use and exposureSmokeless tobacco non-userNOMS Healthcare Start: 09-12-2023 End: 49-03-4052Bybzpjq intakeLifetime non-drinker (finding)NOMS HealthcareStart: 24-32-8356Urr Assigned At [facility] StanlyNot on fileNOMS HealthcareStart: 03-23-2024 End: 37-20-6562Atybnesz to SARS-CoV-2 (event)[facility] HospitalTogriff[facility] smoking statusCommunity [facility] Center [facility] Start: 54-47-7489OaxXjdgyu (finding)[facility]-FairhillNEGATED: Highlighted rowWilson Memorial Hospital Goals DatePatient GoalDesired Activity/State Functional Status LyfuUgfyxpsgplTyuhcwOdfslbtz81-86-6510Pbuxsecyfz statusPatient at Baseline [facility] Work Phone: Mental Status KoiaYltdcglrtzKlltkiQtphyqkp95-19-5079Vphqtsrtv functionCognitive Status Patient at BaselinePremier Health Work Phone: Clinical Notes 01-30-2022 to 05-18-2025 Note Date & TwbiZnpvQsqyjtgq19-81-9041 History of Present illness Narrative* Heaven Beck, SHOP ESTIMATOR - 05/18/2025 6:01 PM EDT Pt called and cancelled her last appointment due to falling on both knees and having pain. MD recommending her to put therapy on hold for 2 weeks. documented in this encounterSaint Luke's East HospitalPyzyqsgbuy23-06-7557 History of Present illness Narrative* Leny Chacon, [...] to be instructed in home exercise program. Long-Term Goals: To be met in 10 weeks [...] Please sign below. Date: documented in this encounterSaint Luke's East HospitalBosmvxrxqw30-13-1660 History of Present illness Narrative* Sp Wan, TONYM - 01/06/2025 9:15 AM EDT Images from the original note were not included. Subjective Patient ID: Aishwarya Hartman is a 64 y.o. 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 These [...] polyneuropathy, with long-term current use of insulin ([facility]) E08.42 Z79.4 Patient was examined and evaluated. I personally reviewed 3 radiographs of the left foot and 3 radiographs of the left ankle from [facility] and discussed my findings. She does [...] understanding. Sp Wan DPM documented in this encounterSaint Luke's East HospitalMswnlxaqpm06-22-4624 History of Present illness Narrative* Ashley Young DO - 12/30/2024 2:30 PM EDT Images [...] , wrist extensors , wrist flexor , crayon painter strength 5/5. LUE Strength deltoid , biceps , triceps , wrist extensors , wrist flexor , crayon painter strength 5/5. RLE Strength illopsoas, quadriceps, tibialis [...] reflex 2+ . Nolen's sign negative. Coordination: Ycfojz-mi-fkxb testing and rapid alternating movements are normal [...] plan, and return instructions documented in this encounterSaint Luke's East HospitalEgpjysfjoj53-13-5310 History of Present illness Narrative* KE Del [...] be t he focus. Contact with the stunt woman for ongoing nail care and to discuss [...] requiring urgent evaluation. Visit was preformed using [email or web address] Co-pilot teacher speech recognition. documented in this encounterSaint Luke's East HospitalFhsfwkxpvc75-16-5480 History of Present illness Narrative* KE Del [...] for requiring urgent evaluation. documented in this encounterSaint Luke's East HospitalYmgqpaosxk15-11-4276 History of Present illness Narrative* Noman Henriquez [...] content normal. Judgment: Judgment normal. Allergies Gabapentin, Stockwell, Lyrica [pregabalin], and Doxycycline Current Medications Current [...] daily at bedtime., Disp: , Rfl: omega 2-akc-mbu-fish oil (Fish OiL) 1,200 (144-216) mg capsule, [...] exam, discussion and plan. documented in this [facility] Work Phone: [phone]) 753-889808-15-2024 Instructions* Patient Instructions* Cecilia Mata RN - [...] for 6 weeks . documented in this [facility] Work Phone: [phone]) 760-144301-30-2024 Evaluation note* Encounter Date Diagnosis Assessment Notes [...] treatment plan and follow up after procedure. [facility] [employer] [facility] Other 01-10-2024 Procedure noteWilson Memorial Hospital12-13-2023 Evaluation note* Encounter Date Diagnosis Assessment Notes [...] - G89.29) Continue with current treatment plan. [facility] [employer] [facility] Other 11-21-2023 Evaluation note* Encounter Date Diagnosis [...] negative findings were considered in medical decision-making. [facility] [employer] [facility] Other 10-09-2023 Evaluation note* Encounter Date Diagnosis [...] (chronic obstructive pulmonary disease) (ICD-10 - J44.9) [facility] Other 07-06-2023 Evaluation note* Encounter Date Diagnosis [...] (chronic obstructive pulmonary disease) (ICD-10 - J44.9) [facility] Other 02-22-2023 Evaluation note* Encounter Date Diagnosis Assessment Notes Treatment Notes Treatment Clinical Notes Sep, Dysphagia (ICD-10 - R13.10) Sep,Vomiting (ICD-10 - R11.10) Sep,cid reflux (ICD-10 - K21.9) [facility] Other 02-09-2023 Evaluation note* Encounter Date Diagnosis Assessment Notes Treatment Notes Treatment Clinical Notes Sep, Osteoarthritis of le ft knee, unspecified osteoarthritis type (ICD- 10 - M17.12) [facility] Other 01-19-2023 Evaluation note* Encounter Date Diagnosis [...] NEW: start pool aerobics class next week [facility] [employer] Other 12-08-2022 Evaluation note* Encounter Date Diagnosis [...] (chronic obstructive pulmonary disease) (ICD-10 - J44.9) [facility] Other 11-30-2022 Evaluation note* Encounter Date Diagnosis [...] patient set personal goal using given handout. [facility] [facility] Other 11-05-2022 Progress note Author Piper Tate [facility] June 23, 2022 1:23pmNote Date/TimeNov2021 1:23pmVictoria Ville [id number] Hospitalist Progress Note Signed Patient: Aishwarya Hartman MR#: [id number] : 1960 Acct:[id number] Age/Sex: 62 / F Adm Date: 2 Loc: Room: [address] [place] [address] Type: ADM IN Attending Dr: Piper Tate [...] spray 06/23/22 09:00 06/23/22 08:51 Fluticasone Propionate Riegelwood 120 Riegelwood/16 Gm Bottle INTRANASAL 06/23/23 08:59 2 spray [...] Meq Kcl IV 06/22/23 17:29 75 mls/hr .L36B90M VELASQUEZ Administration Levothyroxine Sodium 150 mcg 06/23/22 [...] Ziprasidone 80 Mg Capsule PO 06/23/23 21:59 [facility] - [facility] Assessment/Plan (1) Pneumonia: (2) [...] signed by Piper Tate MD> 06/23/22 1323 [facility] Work Phone: 1(110) 279-817411-05-2022 History and physical note Author Piper Tate [facility] June 23, 2022 1:21pmNote Date/TimeNov2021 5:27pmHartford[place] [address] Hospitalist H&P Signed Patient: Aishwarya Hartman MR#: [id number] : 1960 Acct:[id number] Age/Sex: 62 / F Adm Date: 2 Loc: Room: [address] [place] [address] Type: ADM IN Attending Dr: Piper Tate [...] % (Auto) 4.1 % (.) 06/22/22 15:27 Warren % (Auto) 6.7 % (.) 06/22/22 15: Eos % (Auto) 0.1 % (.) 06/22/22 15:27 Baso % (Auto) 0.2 % (.) 06/22/22 15: Neut # (Auto) 14.7 x10E3/uL (1.8-7.7) H 06/22/22 15: Lymph # (Auto) 0.7 x10E3/uL (1.00-4.8) L 06/22/22 15: Warren # (Auto) 1.1 x10E3/uL (0.0-0.8) H 06/22/22 [...] signed by Piper Tate MD> 06/23/22 132[address] [facility] Work Phone: [phone] 844-523510-27-2022 Evaluation note* Encounter Date Diagnosis Assessment Notes [...] (chronic obstructive pulmonary disease) (ICD-10 - J44.9) [facility] [employer] [facility] Other 09-15-2022 Evaluation note* Encounter Date Diagnosis [...] (chronic obstructive pulmonary disease) (ICD-10 - J44.9) [facility] Other 08-23-2022 Evaluation note* Encounter Date Diagnosis [...] and we can look into it further. [facility] Other 08-04-2022 Evaluation note* Encounter Date Diagnosis [...] E03.9) Mar,Metabolic syndrome X (ICD-10 - E88.81) [facility] Other 08-02-2022 Evaluation note* Encounter Date Diagnosis [...] care provider if no improvement of symptoms. [facility] Other 06-14-2022 Evaluation note* Encounter Date Diagnosis [...] E03.9) Jan,Metabolic syndrome X (ICD-10 - E88.81) [facility] [employer] [facility] Other chief complaint+Reason for visit Narrative* Chief Complaint Knee Pain Follow Up After Left Gnb Knee Pain Knee Pain follow up after procedureReason for VisitLumbar degenerative disc disease Other chronic pain Primary osteoarthritis of left knee [facility] Work Phone: Chiva complaint+Reason for visit Narrative* Chief Complaint Knee Pain Follow Up After Left Gnb Knee Pain Knee Pain follow up after procedure lower back pain, L leg painReason for VisitLumbar degenerative disc disease Other chronic pain Primary osteoarthritis of left knee [facility] Work Phone: chief complaint+Reason for visit Narrative* Chief Complaint Knee Pain Follow Up After Left Gnb BH Knee Pain Knee Pain follow up after procedure lower back pain, L leg painReason for VisitLumbar degenerative disc disease Other chronic pain Primary osteoarthritis of left knee [facility] Work Phone: chief complaint+Reason for visit Narrative* [...] pain Primary osteoarthritis of left knee Sacroiliitis [facility] Work Phone: chief complaint+Reason for visit Narrative* Chief Complaint BH follow up after procedure lower back pain, L leg pain 6 week after rfa,knee pain Z96.651 - Presence of right artificial knee jointReason for VisitLumbar degenerative disc disease Other chronic pain Primary osteoarthritis of left knee Lumbar degenerative disc disease Lumbosacral spondylosis without myelopathy Other chronic pain Primary osteoarthritis of left knee Sacroiliitis [facility] Work Phone: chief complaint+Reason for visit Narrative* [...] knee replacement Primary osteoarthritis of left knee [facility] Work Phone: Discharge summary Author Piper Tate [facility] June 24, 2022 4:58pmNote Date/TimeNov2021 4:58pmHartford[place] [address] Discharge Summary Signed Patient: Aishwarya Hartman MR#: [id number] : 1960 Acct:[id number] Age/Sex: 62 / F Adm Date: 2 Loc: Room: [address] [place] [address]: Piper Tate MD Copies to: Sisi Saravia, STUDENT OFFICER Piper Tate MD~ Providers Date of Discharge: 06/24/22 Discharging Provider: Piper Tate Primary Care Provider: Ssii Saravia Consults: 06/22/22 17:32 Consult to Case [...] % (Auto) N/A, Lymph % (Auto) N/A, Warren % (Auto) N/A, Eos % (Auto) N/A, Baso % (Auto) N/A, Neut # (Auto) N/A, Lymph # (Auto) N/A, Warren # (Auto) N/A, Eos # (Auto) N/A, [...] signed by Piper Tate MD> 06/24/22 1658 [facility] Work Phone: Evaluation + Plan note No data available for this section [facility] Evaluation noteNo InformationNortLysanda Other Evaluation noteNo assessment information available [facility] Work Phone: Evaluation note* Diagnosis Onset Date Resolution Status Acute hyponatremia acuteAKI (acute kidney injury)acutePneumoniaacuteSepsisacute [facility] Work Phone: Evaluation note* Diagnosis Cervical radiculopathy- Primary Brachial neuritis or radiculitis nos Right cervical radiculopathy documented in this encounter [facility] HealthcareEvaluation [facility]* Diagnosis Right cervical radiculopathy- Primary Cervical radiculopathy Brachial neuritis or radiculitis nos documented in this encounter [facility] HealthcareEvaluation note* Diagnosis Onset Date Resolution Status Lumbar degenerative disc disease acuteOther chronic painacutePrimary osteoarthritis of left kneeacute [facility] Work Phone: Evaluation note* Diagnosis Onset Date Resolution Status Lumbar degenerative disc disease acuteOther chronic painacutePrimary osteoarthritis of left kneeacuteLumbar degenerative disc diseaseacuteLumbosacral spondylosis without myelopathyacute Other chronic painacutePrimary osteoarthritis of left kneeacuteSacroiliitisacute [facility] Work Phone: Evaluation note* Diagnosis Onset Date Resolution Status Lumbar degenerative disc disease acuteOther chronic painacutePrimary osteoarthritis of left kneeacuteLumbar degenerative disc diseaseacuteLumbosacral spondylosis without myelopathyacute Other chronic painacutePrimary osteoarthritis of left kneeacuteSacroiliitisacute History of total right knee replacementacutePrimary osteoarthritis of left knee acute [facility] Work Phone: Evaluation note* Diagnosis Onset Date Resolution Status History of total right knee replacement acutePrimary osteoarthritis of left kneeacute [facility] Work Phone: Evaluation note* Diagnosis Chest pain, unspecified type documented in this encounter [facility] Work Phone: Evaluation note* Diagnosis Onset Date Resolution Status Dysphagia acuteGastroparesisacuteGERD (gastroesophageal reflux disease)acuteIrritable bowel syndrome with constipationacute [facility] Work Phone: Evaluation note* Diagnosis Chest pain, [...] (Multi) Current smoker documented in this encounter [facility] Work Phone: Evaluation note* Diagnosis Right hip pain- Primary Pain in joint, pelvic region and thigh Piriformis syndrome, right documented in this encounter [facility] HealthcareEvaluation note* Diagnosis Acute left ankle pain- Primary Left foot pain Pain in soft tissues of limb Arthritis of left ankle Bilateral leg edema Edema documented in this encounter [facility]Evaluation [facility]* Diagnosis Degeneration of intervertebral disc of lumbar region with discogenic back pain and lower extremity pain- Primary documented in this encounter [facility] HealthcareEvaluation note* Diagnosis Primary osteoarthritis of left ankle- Primary Valgus deformity, not elsewhere classified, left ankle Instability of left ankle joint Difficulty walking Difficulty in walking Diabetes mellitus due to underlying condition with diabetic polyneuropathy, with long-term current use of insulin ([facility]) documented in this encounter [facility] HealthcareEvaluation note* Diagnosis Spondylosis without myelopathy or radiculopathy, lumbosacral region- Primary documented in this encounter [facility] HealthcareEvaluation note* Diagnosis Spondylosis without myelopathy or radiculopathy, lumbosacral region- Primary Arthritis of lumbar spine Sedentary lifestyle documented in this encounter [facility] HealthcareEvaluation note* Diagnosis Spondylosis without myelopathy or radiculopathy, lumbosacral region- Primary Arthritis of lumbar spine Sedentary lifestyle documented in this encounter [facility] HealthcareEvaluation note* Diagnosis Spondylosis without myelopathy or radiculopathy, lumbosacral region- Primary Arthritis of lumbar spine Sedentary lifestyle documented in this encounter [facility] HealthcareHistory general Narrative - Reported* Type Description Date Medical History DIABETES, type 2 Medical HistoryHYPOTHYROIDMedical HistoryARTHITISMedical HistoryHYPERLIPIDEMIA Medical HistoryBPDMedical HistoryCOPDMedical HistorySLEEP APNEAMedical History depressionMedical HistoryanxietyMedical HistorybipolarMedical History schizophreniaMedical HistoryHypertensionMedical HistoryasthmaMedical History snoringMedical HistoryfatigueMedical Historysleep apneaMedical History HypothyroidismSurgical HistoryKNEE REPLACEMENTSurgical HistoryC-SECTION X2 Surgical HistoryPARTIAL HYSTERECTOMYSurgical HistoryLEFT MIDDLE FINGER AMPUTATIONHospitalization HistorySEE ABOVE [employer] Other HistheAudience general Narrative - Reported* Type Description Date Medical History DIABETES, type 2 Medical HistoryHYPOTHYROIDMedical HistoryARTHITISMedical HistoryHYPERLIPIDEMIA Medical HistoryBPDMedical HistoryCOPDMedical HistorySLEEP APNEAMedical History depressionMedical HistoryanxietyMedical HistorybipolarMedical History schizophreniaMedical HistoryHypertensionMedical HistoryasthmaMedical History snoringMedical HistoryfatigueMedical Historysleep apneaMedical History HypothyroidismSurgical HistoryKNEE REPLACEMENTSurgical HistoryC-SECTION X2 Surgical HistoryPARTIAL HYSTERECTOMYSurgical HistoryLEFT MIDDLE FINGER AMPUTATIONHospitalization HistorySEE ABOVEHospitalization HistoryPneumonia/ [id number] [employer] Other HistheAudience general Narrative - Reported* Type Description Date Medical History DIABETES, type 2 Medical HistoryHYPOTHYROIDMedical HistoryARTHITISMedical HistoryHYPERLIPIDEMIA Medical HistoryBPDMedical HistoryCOPDMedical HistorySLEEP APNEAMedical History depressionMedical HistoryanxietyMedical HistorybipolarMedical History schizophreniaMedical HistoryHypertensionMedical HistoryasthmaMedical History snoringMedical HistoryfatigueMedical Historysleep apneaMedical History HypothyroidismSurgical HistoryKNEE REPLACEMENTSurgical HistoryC-SECTION X2 Surgical HistoryPARTIAL HYSTERECTOMYSurgical HistoryLEFT MIDDLE FINGER AMPUTATIONSurgical HistoryEGD Dr Norton-2022Hospitalization HistorySEE ABOVE Hospitalization HistoryPneumonia/ [id number] [employer] Other History of Present illness Narrative* Patient [...] following healthy heart diet and stop smoking [facility] [employer] DO Work Phone: History of Present illness [...] following healthy heart diet and stop smoking [facility] [employer] DO Work Phone: History of Present illness [...] following healthy heart diet and stop smoking [facility] DO Work Phone: Hospital Discharge instructions Additional Instructions Speech therapy recommendations: *Thin liquids *Regular solids *No mixed consistencies *Whole meats *Give pills whole, one at a time, with water or applesauce *Sit upright at 90 degrees during all oral intake *Take small bites and sips *Pace yourself and eat a slow-rate *Sit upright for 30 minutes after meals and [facility]Prem[facility] Work Phone: Hospital Discharge instructions Additional Instructions [...] bowel control high fever or any other concernsPremier Health Work Phone: Hospital Discharge instructions No data available for this section [facility] Progress note No data available for this section [facility] Reason for visit Narrativepain management possible referralHampton inexio Other Reason for visit Narrative* Consultation (Routine) - AuthorizedSpecialtyDiagnoses / ProceduresReferred By ContactReferred To ContactPhysical Therapy Diagnoses Right cervical radiculopathy Procedures MD OFFICE/OUTPATIENT NEW HIGH MDM 60 MINUTES Erika Orosco PA [address] [facility] [address] [place] [address] Sisi Lucas, PT [address] [place] [address] Referral IDStatusReasonStart DateExpiration DateVisits RequestedVisits [id number] Consult and Treat / [facility] HealthcareReason for visit Narrative* Consultation (Routine) - Closed SpecialtyDiagnoses / ProceduresReferred By ContactReferred To ContactNeurology Diagnoses Sciatica, unspecified side Procedures MD OFFICE/OUTPATIENT NEW LOW MDM 30 MINUTES Sisi Saravia MD [address] [place] [address] Phone: tel:[phone] fax: Nitza Simeon DO [address] [place] [address] Phone: tel: fax: Referral IDStatusReasonStart DateExpiration DateVisits RequestedVisits [id number] Consult and Treat / [facility] HealthcareReason for visit Narrative* Rehabilitation - Outpatient (Routine) - AuthorizedSpecialtyDiagnoses / ProceduresReferred By ContactReferred To ContactPhysical Therapy Diagnoses Spondylosis without myelopathy or radiculopathy, lumbosacral region Procedures MD PHYSICAL THERAPY EVALUATION LOW COMPLEX 20 MINS MD OFFICE/OUTPATIENT NEW HIGH MDM 60 MINUTES Linda Archer MD [address] [facility] [address] [place] [address] Phone: tel: fax: Leny Chacon, PT Referral Greta DateExpiration DateVisits RequestedVisits [id number]/5/20252/23/20262020 [facility] for visit Narrative* Rehabilitation - Outpatient (Routine) - AuthorizedSpecialtyDiagnoses / ProceduresReferred By ContactReferred To ContactPhysical Therapy Diagnoses Spondylosis without myelopathy or radiculopathy, lumbosacral region Procedures MD PHYSICAL THERAPY EVALUATION LOW COMPLEX 20 MINS MD OFFICE/OUTPATIENT [facility] MDM 60 MINUTES Linda Archer MD [address] [place] [address] Phone: tel: fax: Leny Chacon PT Referral IDSCarlos DateExpiration DateVisits RequestedVisits [id number]/5/202512/[id number] [facility] Chief Complaint AISHWARYA HARTMAN is being seen [...] SPECT MULTIPLE STUDIES Noman Henriquez MD [address] [facility] [address], [facility] [address] [place] [address] Referral IDStatusReasonStart DateExpiration DateVisits RequestedVisits [id number]/15/20248/ Reason 10/18/22 @ 10:30 g enicular block for left knee pain Diagnosis 1 Osteoarthritis of le ft knee, unspecified osteoarthritis type (M17.12) Referral Organization [facility] Referring Provider First Name Osvaldo Referring Provider Last Name Armando ORTEGA Referring Provider Specialty Orthopedic Surgery Referred Organization [facility] Pain Manageluis manuel Ellison Referred Provider Rick Alberto Referred Address [address] [facility] [place],[address] Referred Provider Specialty Pain Medicin e Referral [...] SPECT MULTIPLE STUDIES Noman Henriquez MD [address] [facility] [address], [address] [place] [address] Referral IDStatusReasonStart DateExpiration DateVisits RequestedVisits [id number]/[id number]-ibHcfkkvc last seen in 2ReasonCommentsPainReasonCommentsFoot Qeesguo58 yo 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 presents today for concerns of pain and [...] 02, 2024 End: January 01jacquie Saravia , 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-CPrimary Care ProviderActiveStart: January 02, 2024 End: January 02, 2024 Team Status: Active Member Role Status Dates Sisi Saravia 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-C Primary Care Provider Active Start: January 06, 2024 Jesu Velazquez , MDAttending ProviderActiveStart: January 06, 2024 Team Status: Active Member Role Status Dates Osvaldo Roberts II, MD Attending Provider Active Start: January 09, 2024 Sisi Saravia , 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-CPrimary Care ProviderActiveStart: January 09, 2024 Team Status: Inactive Member Role Status Dates Sisi Saravia 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-C Primary Care Provider Active Start: January 09, 2024 End: January 08mary Roberts II, MDAttending ProviderActiveStart: January 09, 2024 End: January 09, 2024 Team Status: Active Member Role Status Dates Sisi Saravia 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-C Primary Care Provider Active Start: October 29, 2023 Jesu Velazquez , MDAttending ProviderActiveStart: October 29, 2023 Team Status: Inactive Member Role Status Dates Sisi Saravia 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-C Primary Care Provider Active Start: August 28, 2023 End: August 28, 2023Jet Bansal , MDAttending ProviderActiveStart: August 28, 2023 End: August 28, 2023 Team Status: Inactive Member Role Status Dates Jet Bansal MD Attending Provider Active Sta rt: September 17, 2023 End: September 17, 2023 Team Status: Inactive Member Role Status Dates Sisi Saravia 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-C Primary Care Provider Active Start: October 09, 2023 End: October 09, 2023Jet Bansal , MDAttending ProviderActiveStart: October 09, 2023 End: October 09, 2023 Team Status: Active Member Role Status Dates Sisi Saravia 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-C Primary Care Provider Active Start: October 09, 2023 Olivia Jacques Provider, Other ProviderActiveStart: October 09, 2023 Team Status: Active Member Role Status Dates Sisi Saravia 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-C Primary Care Provider Active Start: July 16, 2023 Olivia Leonardo ProviderActiveStart: July 16, 2023 Team Status: Inactive Member Role Status Dates Sisi Saravia 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-C Primary Care Provider Active Start: July 24, 2023 End: July 24, 2023Jet Bansal MDAttester ProviderActiveStart: July 24, 2023 End: July 24, 2023 Team Status: Inactive Member Role Status Dates Jet Bansal MD Attending Provider Active Sta rt: July 31, 2023 End: July 31, 2023 Team Status: Inactive Member Role Status Dates Sisi Saravia 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-C Primary Care Provider Active Start: August 06, 2023 End: August 06, 2023Olivia Jacques ProviderActiveStart: August 06, 2023 End: August 06, 2023 Team Status: Inactive Member Role Status Dates Sisi Saravia 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-C Primary Care Provider Active Olivia Jacques ProviderActive Team Status: Active Member Role Status Dates Sisi Saravia 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-C Primary Care Provider Active Deb Honeycutt ProviderActive Team Status: Inactive Member Role Status Dates Sisi Saravia 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-C Primary Care Provider Active Olivia Gee II ProviderActive Team Status: Inactive Member Role Status Dates Sisi Saravia 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-C Primary Care Provider Active Olivia Camarillo ProviderActive Team Status: Inactive Member Role Status Dates Sisi Saravia 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-C Primary Care Provider Active Mirtha Craig ProviderActiveOanh Ortega Provider, Attending ProviderActive Team Status: Inactive Member Role Status Dates Sisi Saravia , 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-C Primary Care Provider, Attend ing Provider Active Team MemberRelationshipSpecialtyStart DateEnd Date Unallocated, Noms Provider [facility] [address] PCP - Ideohph19/12/23 Sisi Saravia MD [address] [place] [address] Referring PhysicianFamily Medicine02/07/23Team MemberRelationshipSpecialtyStart DateEnd Date Unallocated, Noms Provider [address] [place] [address] PCP - Mpigyzh70/12/23 Sisi Saravia MD [address] [place] [address] Referring PhysicianFamily Medicine02/07/23Team MemberRelationshipSpecialtyStart DateEnd Date Unallocated, Noms Provider [address] [facility] [place] [address] PCP - Cwtzkpy08/12/23 Sisi Saravia MD [address] [place] [address] Referring PhysicianFamily Medicine02/07/23Team MemberRelationshipSpecialtyStart DateEnd Date Unallocated, Noms Provider [address] [place] [address] PCP - Hfakenb40/12/23 Sisi Saravia MD [address] [place] [address] Referring PhysicianFamily Medicine02/07/23Team MemberRelationshipSpecialtyStart DateEnd Date Unallocated, Noms Provider [address] [place] [address] PCP - Sbqvabj42/12/23 Sisi Saravia MD [address] [place] [address] Referring PhysicianFamily Medicine02/07/23 Team Status: Active Member [...] Team Status: Inactive Member Role Status Dates Siis Saravia NP-C Primary Care Provider Active Start: March 24, 2024 End: March 24, 2024ERIKA AlvaradoP-BCEmergency ProviderActiveStart: March 24, 2024 End: March 24, 2024Team MemberRelationshipSpecialtyStart DateEnd Date Sisi Saravia, TREE PULLER-STUDENT OFFICER [address] [place] [address] PCP - Krksoyv01/22/22Team MemberRelationshipSpecialtyStart DateEnd Date Sisi Saravia, TREE PULLER-STUDENT OFFICER [address] [place] [address] PCP - Tdxnftm68/22/22Team MemberRelationshipSpecialtyStart DateEnd Date Sisi Saravia, TREE PULLER-STUDENT OFFICER [address] [facility] [place] [address] PCP - Ltcmuzb85/22/22Team MemberRelationshipSpecialtyStart DateEnd Date Sisi Saravia, TREE PULLER-STUDENT OFFICER [address] [place] [address] PCP - Gqmzowy88/22/22 Team Status: Active Member Role Status Dates Sisi Saravia 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-C Primary Care Provider Active Start: June 09, 2024 Olivia Leonardo ProviderActiveStart: June 09, 2024 Team Status: Inactive Member Role Status Dates Sisi Saravia 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-C Primary Care Provider Active Start: June 15, 2024 End: June 15aleax Pacheco DOAttester ProviderActiveStart: June 15, 2024 End: June 15, 2024Team MemberRelationshipSpecialtyStart DateEnd Date Sisi Saravia S, TREE PULLER-STUDENT OFFICER [address] [place] [address] PCP - Bzivvhl48/22/22Team MemberRelationshipSpecialtyStart DateEnd Date Unallocated, Benton Hdez MD [address] [place] [address] PCP - Edwbzxx20/12/23 Sisi Saravia MD [address] [place], [place] [id number] Ref[facility] Medicine02/07/23Team MemberRelationshipSpecialtyStart DateEnd Date Unallocated, Benton Hdez MD [address] [place] [address] PCP - Qnotyof55/12/23 Sisi Saravia MD [address] [place] [address] Referring PhysicianFagardner state hospital Medicine02/07/23Te MemberRelationshipSpecialtyStart DateEnd Date Unallocated, Benton Hdez MD [address] [place] [address] PCP - Amoqdab26/12/23 Sisi Saravia MD [address] [place] [address] Referring PhysicianFamily Medicine02/07/23 MemberRelationshipSpecialtyStart [place] [address] [place] [address] Referring PhysicianFamily Medicine12/24/24am MemberRelationshipSpecialtyStart [place] [address] [place] [address] Referring PhysicianFamily Medicine12/24/24am MemberRelationshipSpecialtyStart [place] [address] [place] [address] Primary Care ProviderFamily Medicine12/24/24Team MemberRelationshipSpecialtyStart DateEnd Date Sisi Saravia MD [address] [place] [address] Primary Care ProviderFamily Medicine12/24/24Te MemberRelationshipSpecialtyStart DateEnd Date Sisi Saravia MD [address] [place] [address] Primary Care ProviderFamily Medicine12/24/24Team MemberRelationshipSpecialtyStart DateEnd Date Sisi Saravia MD [address] [place] [address] Primary Care ProviderFamily Medicine12/24/24Team MemberRelationshipSpecialtyStart DateEnd Date Sisi Saravia MD [address] [place] [address] Primary Care ProviderChelsea [facility] Medicine12/24/24Team MemberRelationshipSpecialtyStart DateEnd Date Sisi Saravia MD [address] [place] [address] [facility]12/24/24Team MemberRelationshipSpecialtyStart DateEnd Date Sisi Saravia MD [address] [place] [address] Primary [facility] ProviderP[facility]12/24/24Team MemberRelationshipSpecialtyStart DateEnd Date Sisi Saravia MD [address] [place], [place] [id number] Primary Care ProviderPiedmont [facility] Regional12/24/24 Goals (unrecognized section and content) Goals may be documented in a n alternate section INFORMATION SOURCE (unrecogn ized section and content) DATE CREATED AUTHOR 07/11/2022 [facility] DATE CREATED AUTHOR AUTHOR'S ORGANIZ ATION 07/11/2022 [facility] DATE CREATED AUTHOR AUTHOR'S ORGANIZ ATION 08/15/2022 [facility] DATE CREATED AUTHOR AUTHOR'S ORGANIZ ATION 04/04/2024 [facility] DATE CREATED AUTHOR AUTHOR'S ORGANIZ ATION 07/21/2024 [facility] DATE CREATED AUTHOR AUTHOR'S ORGANIZ ATION 05/06/2025 [facility] EPIC DATE CREATED AUTHOR AUTHOR'S ORGANIZ ATION 05/24/2025 [facility] DATE CREATED AUTHOR AUTHOR'S ORGANIZ ATION 06/07/2025 [facility] FOR RECORDS PERTAINING TO PATIENTS WHO ARE [...] BE BASED ON THE PRIMARY CLINICAL RECORDS. [facility]. provides no warranty or guarantee of the accuracy or completeness of information in this document.
== END 2025-07-26 13:01 | disposition home or self-care (01) ==
LOC: RAD 13:00
PROVIDERS: PCP Nurse Practitioner Family; Visit Provider Nurse Practitioner Family
DX: M81.0 Age-related osteoporosis without current pathological fracture (principal); M85.88 Other specified disorders of bone density and structure, other site
CPT/HCPCS: 77080